=== PATIENT | male | born 1945 | race Caucasian/White ===

== ENCOUNTER → 2017-01-13 | Outpatient (CLI) | payer BC ==
[~2017-01-13] MED LIST: AMB10 PO; AMLO2.5T PO; ASPI1TAB83 PO; ATOR-26 PO; CLOB-77 TOP; CLOP1TAB15 PO; FOLI1TAB7 PO; LOSA1TAB PO; LOSA50TA6 PO; LSX40 PO; NTRGSL/4 UT; OXYC1TAB3 PO; PRD/25 PO; PRLSR20 PO; PSYL0.524; TEST5GEL TD; TPRSR/25 PO; [UNRECOGNIZED DRUG - CODE] TOP
[2017-01-13 11:00] LABS: MEAN CORPUSCULAR HGB CONC 32.9 g/dl (32-36)
[2017-01-13 11:23] LABS: HEMATOCRIT 40.7 % (42-52); MEAN CELL VOLUME 80.3 fL (80-100); MEAN CORPUSCULAR HEMOGLOBIN 26.4 pg (25-34); RED BLOOD COUNT 5.07 M/uL (4.7-6.1); WHITE BLOOD COUNT 7.32 K/uL (4.8-10.8)
[2017-01-13 11:31] LABS: PLATELET COUNT 146 K/uL (130-400); PLT ESTIMATE DECREASED
== END | disposition home or self-care (01) ==
LOC: C.LABBC 08:07
PROVIDERS: ATTEND Internal Medicine Cardiovascular Disease
DX: E61.1 Iron deficiency (principal)

== ENCOUNTER → 2017-01-13 | Outpatient (CLI) | payer BC ==
[2017-01-13 10:59] LABS: BASO % 0.3 %; BASO ABS # 0.02 K/uL (0-0.2); EOS % 3.8 %; HEMATOCRIT 40.9 % (42-52); IG% 0.1 %; LYMPH ABS # 1.41 K/uL (1.2-3.4); MEAN CELL VOLUME 80.2 fL (80-100); MEAN CORPUSCULAR HEMOGLOBIN 26.3 pg (25-34); MEAN CORPUSCULAR HGB CONC 32.8 g/dl (32-36); MEAN PLATELET VOLUME 10.5 fL (7.4-10.4); NEUT % 64.8 %; PLATELET COUNT 146 K/uL (130-400); WHITE BLOOD COUNT 7.06 K/uL (4.8-10.8)
[2017-01-13 11:33] LABS: ANISOCYTOSIS PRESENT; COMPLETE YES
--- NOTE | 2017-01-23 07:18 | CODING QUERY MEDICAL NECESSITY ---
SUPPORTING DIAGNOSIS NEEDED A supporting diagnosis is required for the test/procedure performed on this patient in order for us to be reimbursed by the patient's insurance. Please provide a supporting diagnosis for the following test/procedure listed below next to the test name along with your signature. *If there is no additional diagnosis for this patient that would support the following test/procedure please document that below next to the test/procedure. Test(s)/Procedure(s) that require a supporting diagnosis: DOS 01/13 * PSA DIAGNOSIS: Provider Signature: Date: Thank you Mita Peña Health Information Management Once completed, please kindly fax back to [phone] For questions please call [phone]
== END | disposition home or self-care (01) ==
LOC: C.LABBC 08:10
PROVIDERS: ATTEND Internal Medicine Endocrinology, Diabetes & Metabolism
DX: D35.2 Benign neoplasm of pituitary gland (principal); D35.3 Benign neoplasm of craniopharyngeal duct; E25.0 Congenital adrenogenital disorders associated with enzyme deficiency; E61.1 Iron deficiency

== ENCOUNTER → 2017-07-25 | Outpatient (CLI) | payer BC ==
[~2017-07-25] MED LIST changes: -LOSA1TAB PO; -OXYC1TAB3 PO; -PRD/25 PO; -PSYL0.524; -TEST5GEL TD
[2017-07-25 09:39] LABS: BASO % 0.4 %; BASO ABS # 0.03 K/uL (0-0.2); COMPLETE YES; EOS % 3.4 %; HEMATOCRIT 42.6 % (42-52); IG% 0.4 %; LYMPH % 18.4 %; LYMPH ABS # 1.28 K/uL (1.2-3.4); MEAN CELL VOLUME 90.1 fL (80-100); MEAN CORPUSCULAR HEMOGLOBIN 30.4 pg (25-34); MEAN CORPUSCULAR HGB CONC 33.8 g/dl (32-36); MEAN PLATELET VOLUME 10.8 fL (7.4-10.4); MONO % 10.2 %; NEUT % 67.2 %; PLATELET COUNT 133 K/uL (130-400); RED BLOOD COUNT 4.73 M/uL (4.7-6.1); WHITE BLOOD COUNT 6.96 K/uL (4.8-10.8)
[2017-07-25 10:31] LABS: TESTOSTERONE,TOTAL 351.6 ng/dl; THYROXINE (T4) 6.4 mcg/dl (4.5-10.9)
[2017-07-25 10:54] LABS: ALT/SGPT 39 U/L (12-78); AST/SGOT 26 U/L (15-37); BLOOD UREA NITROGEN 16 mg/dl (7-18); BUN/CREATININE RATIO 14.2 (10-20); CALCIUM 8.8 mg/dl (8.5-10.1); CARBON DIOXIDE 28 mmol/L (21-32); CHLORIDE 108 mmol/L (98-107); CHOLESTEROL 74 mg/dl (0-200); CHOLESTEROL/HDL RATIO 1.9; GLUCOSE 103 mg/dl (70-99); HDL CHOLESTEROL 38 mg/dl; LDL CHOLESTEROL CALCULATED 23 mg/dl; POTASSIUM 4.3 mmol/L (3.5-5.1); SODIUM 139 mmol/L (136-145); TRIGLYCERIDES 67 mg/dl (0-150); VERY LOW DENSITY LIPOPROT CALC 13 mg/dl
[2017-07-25 11:00] LABS: ALB/GLOB RATIO 1.2 (0.9-2); ALKALINE PHOSPHATASE 102 U/L (45-117); FERRITIN 31.5 ng/ml (8.0-388.0); TOTAL IRON BINDING CAPACITY 321 mcg/dl (250-450)
[2017-07-25 14:04] LABS: ESTIMATED AVERAGE GLUCOSE 134 mg/dl; HA1C FLAG Normal (Normal)
== END | disposition home or self-care (01) ==
LOC: C.LAB1850 08:25
PROVIDERS: ATTEND Family Medicine
DX: I10 Essential (primary) hypertension (principal); E78.00 Pure hypercholesterolemia, unspecified; I25.10 Atherosclerotic heart disease of native coronary artery without angina pectoris; E55.9 Vitamin D deficiency, unspecified; R73.03 Prediabetes; D64.9 Anemia, unspecified; D35.2 Benign neoplasm of pituitary gland; D35.3 Benign neoplasm of craniopharyngeal duct; Z12.5 Encounter for screening for malignant neoplasm of prostate

== ENCOUNTER → 2017-08-01 | Day surgery (SDC) | payer BC ==
[2017-07-17 14:42] VITALS: BMI 28.0
[~2017-08-01] VITALS: Ht 172.7 cm; Wt 85.5 kg
[~2017-08-01] MED LIST changes: +LIDOCAINE HCL 2% 2 ML VIAL (20MG/ML) ONE; +MIDAZOLAM HCL 1 MG/ML 2ML VIAL ONE; +ONDANSETRON INJ 2 MG/ML 2 ML VIAL ONE; +PROPOFOL IV EMULSION 10 MG/ML 20 ML VIAL IV ONE; +SODIUM CHLORIDE 0.9% 500ML 500 ML IV ONE
[2017-08-01 11:11] VITALS: Ht 172.7 cm; Wt 85.5 kg
--- NOTE | 2017-08-01 11:56 | Endo History and Physical ---
History & Physical Date of Service: Aug 01, 2017. Chief Complaint: Hx polyps Referring Physician: Dr Jerez History of Present Illness 72 yo CM who presents for EGD and colonoscopy secondary to High's esophagus and history of colon polyps. Past Medical History Angioplasty/Stent, Arthritis, Reflux, High Cholesterol, Heart Disease, Hypertension, [place] Past Surgical History Hx Cardiac Surgery: Yes (HEART CATHS X2, STENTS X0, ANGIOPLASTY X1, AAA REPAIR) Hx Internal Defibrillator: Yes (05/2014) Hx Pacemaker: Yes (05/2014) Hx Abdominal Surgery: No Hx of Implantable Prosthesis: No Hx Post-Op Nausea and Vomiting: No Hx Cancer Surgery: No Hx Thoracic Surgery: No Hx Orthopedic: Yes (LT/RT FELIX) Hx Urinary Tract Surgery: No Family History None Social History Smoking Status: Former Smoker Hx Substance Use: No Hx Alcohol Use: Yes (SOCIAL/OCCASIONAL) Allergies Coded Allergies: Amoxicillin (Verified Allergy, Mild, RASH/ITCHING, 07/17/17) PER PATIENT "HAPPENS ON PENIS" Lactose Intolerance (GI) (Verified Adverse Reaction, Intermediate, GI SYMPTOMS, 07/17/17) Benzalkonium Chloride (Verified Adverse Reaction, Mild, ITCHING/SWELLING/ RASH, 07/17/17) PER ADR EVENT REPORTING, PT USED BENZALKONIUM CL ANTISEPTIC TOWEL AND HAD REACTION Gluten (Verified Adverse Reaction, Unknown, gluten intolerant per EGD, ) Current Medications Reported Home Medications Medications Dose Route/Sig Max Daily Dose Days Date Category Androgel (Testosterone) 40.5 Mg/2.5 Gm Gel 1 Dose TOP DAILY 07/17/17 Reported Cozaar (Losartan Potassium) 50 Mg Tab 50 Mg PO QPM 07/17/17 Reported Temovate (Clobetasol Propionate) 0.05 % Cre 1 Appln TOP UD PRN 10/24/16 Reported Nitrostat (Nitroglycerin) 0.4 Mg Tab 0.4 Mg UT PRN PRN 10/24/16 Reported Metoprolol Succinate ER (Metoprolol Succinate) 25 Mg Tabcr 25 Mg PO QAM 10/24/16 Reported Norvasc (Amlodipine Besylate) 2.5 Mg Tab 2.5 Mg PO QPM 05/23/15 Reported Folvite (Folic Acid) 1 Mg Tab 1 Mg PO QPM 07/14/14 Reported Plavix (Clopidogrel Bisulfate) 75 Mg Tab 75 Mg PO QPM 07/13/14 Reported Furosemide 40 Mg Tab 40 Mg PO Q2D 07/13/14 Reported Lipitor (Atorvastatin Calcium) 80 Mg Tab 80 Mg PO QPM 07/13/14 Reported Zolpidem Tartrate 10 Mg Tab 10 Mg PO HS PRN 06/10/14 Reported Aspirin 81 Mg Tab 81 Mg PO QPM 12/12/13 Reported Prilosec (Omeprazole) 20 Mg Capcr 2 Tabs PO BID 08/27/13 Reported Vital Signs Weight (Kilograms): 85.45 Height (Feet): 5 Height (Inches): 8 Date Time Temp Pulse Resp B/P (MAP) Pulse Ox O2 Delivery O2 Flow Rate FiO2 08/01/17 11:08 36.6 72 18 153/83 (106) 97 Room Air Physical Exam General Appearance: WD/WN, no apparent distress Respiratory/Chest: Auscultation: breath sounds normal Cardiovascular: Heart Auscultation: RRR Abdomen: Bowel Sounds: normal Inspection & Palpation: soft, non-distended, no tenderness, guarding & rebound Assessment and Plan Assessment: 72 yo CM who presents for EGD and colonoscopy secondary to High's esophagus and history of colon polyps. Plan: Proceed with EGD and colonoscopy.
--- NOTE | 2017-08-01 12:47 | GI REPORT ---
Procedure Date: 08/01/2017 11:19 AM Procedure: Colonoscopy Indications: High risk colon cancer surveillance: Personal history of colonic polyps Medicines: Monitored Anesthesia Care Complications: No immediate complications. Estimated Blood Loss: Estimated blood loss: none. Procedure: Pre-Anesthesia Assessment: - Prior to the procedure, a History and Physical was performed, and patient medications and allergies were reviewed. The patient's tolerance of previous anesthesia was also reviewed. The risks and benefits of the procedure and the sedation options and risks were discussed with the patient. All questions were answered, and informed consent was obtained. Prior Anticoagulants: The patient last took aspirin 1 day and Plavix (clopidogrel) 7 days prior to the procedure. ASA Grade Assessment: III - A patient with severe systemic disease. After reviewing the risks and benefits, the patient was deemed in satisfactory condition to undergo the procedure. After I obtained informed consent, the scope was passed under direct vision. Throughout the procedure, the patient's blood pressure, pulse, and oxygen saturations were monitored continuously. The scope was introduced through the anus and advanced to the cecum, identified by appendiceal orifice and ileocecal valve. The colonoscopy was performed without difficulty. The patient tolerated the procedure well. The quality of the bowel preparation was good. The ileocecal valve, appendiceal orifice, and rectum were photographed. Findings: Non-bleeding internal hemorrhoids were found during retroflexion. The hemorrhoids were small. The exam was otherwise without abnormality. Impression: - Non-bleeding internal hemorrhoids. - The examination was otherwise normal. - No specimens collected. Recommendation: - Resume previous diet. - Continue present medications. - No repeat colonoscopy due to age and the absence of advanced adenomas. - Return to primary care physician as previously scheduled. Kirill Storm DO 08/01/2017 12:46:08 PM This report has been signed electronically. Note Initiated On: 08/01/2017 11:19 AM I attest to the content of the Intraoperative Record and orders documented therein, exceptions below
--- NOTE | 2017-08-01 12:49 | GI REPORT ---
Procedure Date: 08/01/2017 11:19 AM Procedure: Upper GI endoscopy Indications: Follow-up of High's esophagus Medicines: Monitored Anesthesia Care Complications: No immediate complications. Estimated Blood Loss: Estimated blood loss: none. Procedure: Pre-Anesthesia Assessment: - Prior to the procedure, a History and Physical was performed, and patient medications and allergies were reviewed. The patient's tolerance of previous anesthesia was also reviewed. The risks and benefits of the procedure and the sedation options and risks were discussed with the patient. All questions were answered, and informed consent was obtained. Prior Anticoagulants: The patient last took aspirin 1 day and Plavix (clopidogrel) 7 days prior to the procedure. ASA Grade Assessment: III - A patient with severe systemic disease. After reviewing the risks and benefits, the patient was deemed in satisfactory condition to undergo the procedure. After obtaining informed consent, the endoscope was passed under direct vision. Throughout the procedure, the patient's blood pressure, pulse, and oxygen saturations were monitored continuously. The On-site loaner was introduced through the mouth, and advanced to the second part of duodenum. The upper GI endoscopy was accomplished without difficulty. The patient tolerated the procedure well. Findings: A moderate Schatzki ring (acquired) was found at the gastroesophageal junction. A TTS dilator was passed through the scope. Dilation with an 18-19-20 mm balloon (to a maximum balloon size of 19 mm) dilator was performed. The dilation site was examined and showed moderate improvement in luminal narrowing. There were esophageal mucosal changes consistent with short-segment High's esophagus present in the lower third of the esophagus. The maximum longitudinal extent of these mucosal changes was 2 cm in length. Mucosa was biopsied with a cold forceps for histology. One specimen bottle was sent to pathology. A medium-sized hiatus hernia was present. The examined duodenum was normal. Impression: - Moderate Schatzki ring. Dilated. - Esophageal mucosal changes consistent with short-segment High's esophagus. Biopsied. - Medium-sized hiatus hernia. - Normal examined duodenum. Recommendation: - Resume previous diet. - Continue present medications. - Await pathology results. - Return to primary care physician as previously scheduled. Kirill Storm DO 08/01/2017 12:48:45 PM This report has been signed electronically. Note Initiated On: 08/01/2017 11:19 AM I attest to the content of the Intraoperative Record and orders documented therein, exceptions below
--- NOTE | 2017-08-01 13:11 | Discharge Instructions ---
Endoscopy Patient Instructions Date / Procedure(s) Performed Aug 01, 2017. Colonoscopy, EGD Allergy Information Coded Allergies: Amoxicillin (Verified Allergy, Mild, RASH/ITCHING, 07/17/17) PER PATIENT "HAPPENS ON PENIS" Lactose Intolerance (GI) (Verified Adverse Reaction, Intermediate, GI SYMPTOMS, 07/17/17) Benzalkonium Chloride (Verified Adverse Reaction, Mild, ITCHING/SWELLING/ RASH, 07/17/17) PER ADR EVENT REPORTING, PT USED BENZALKONIUM CL ANTISEPTIC TOWEL AND HAD REACTION Gluten (Verified Adverse Reaction, Unknown, gluten intolerant per EGD, ) Discharge Date / Findings Aug 01, 2017. EGD: Schatzki's Ring s/p dilation, High's Esophagus s/p biopsies, Hiatal hernia Colonoscopy: Internal hemorrhoids Medication Instructions Stopped Medication(s): Plavix held since 07/26/17 OK to resume all medications today as prescribed Reported Home Medications Medications Dose Route/Sig Max Daily Dose Days Date Category Androgel (Testosterone) 40.5 Mg/2.5 Gm Gel 1 Dose TOP DAILY 07/17/17 Reported Cozaar (Losartan Potassium) 50 Mg Tab 50 Mg PO QPM 07/17/17 Reported Temovate (Clobetasol Propionate) 0.05 % Cre 1 Appln TOP UD PRN 10/24/16 Reported Nitrostat (Nitroglycerin) 0.4 Mg Tab 0.4 Mg UT PRN PRN 10/24/16 Reported Metoprolol Succinate ER (Metoprolol Succinate) 25 Mg Tabcr 25 Mg PO QAM 10/24/16 Reported Norvasc (Amlodipine Besylate) 2.5 Mg Tab 2.5 Mg PO QPM 05/23/15 Reported Folvite (Folic Acid) 1 Mg Tab 1 Mg PO QPM 07/14/14 Reported Plavix (Clopidogrel Bisulfate) 75 Mg Tab 75 Mg PO QPM 07/13/14 Reported Furosemide 40 Mg Tab 40 Mg PO Q2D 07/13/14 Reported Lipitor (Atorvastatin Calcium) 80 Mg Tab 80 Mg PO QPM 07/13/14 Reported Zolpidem Tartrate 10 Mg Tab 10 Mg PO HS PRN 06/10/14 Reported Aspirin 81 Mg Tab 81 Mg PO QPM 12/12/13 Reported Prilosec (Omeprazole) 20 Mg Capcr 2 Tabs PO BID 08/27/13 Reported Provider Instructions Activity Restrictions - No exercising or heavy lifting for 24 hours. - Do not drink alcohol the day of the procedure. - Do not drive a car or operate machinery until the day after the procedure. - Do not make any important decisions or sign important papers in 24 hours after the procedure. Following Day: - Return to full activity which may include returning to work/school. Diet Start your diet with liquids and light foods (jello, soup, juice, toast). Then eat your usual diet if not nauseated. Treatment For Common After Affects For mild abdominal pain, bloating, or excessive gas: - Rest - Eat lightly - Lie on right side Follow-Up Information Follow-up with Dr Jerez as scheduled Anesthesia Information What You Should Know You have had a procedure that required some medicine to reduce anxiety and discomfort. This treatment is called moderate sedation. After receiving the treatment, you may be sleepy, but you will be able to breathe on your own. The effects of the treatment may last for several hours. Follow these instructions along with Activity/Diet recommendations noted above: * Do NOT do anything where dizziness or clumsiness would be dangerous. * Rest quietly at home today, then you can be up and about tomorrow. * Have a responsible person stay with you the rest of today. * You may have had an I.V. today. If so, you may take the dressing off later today. Recommendations Call your doctor if: * Trouble breathing * Continuous vomiting for more than 24 hours * Temperature above 101 degrees * Severe abdominal pain or bloating * Pain not relieved by pain medicine ordered * There is increased drainage or redness from any incision * A large amount of rectal bleeding greater than 2-3 tablespoons. (If you had a polyp/s removed or have hemorrhoids, a small amount of blood - from the rectum is to be expected.) * You have any unanswered questions or concerns. IN THE EVENT OF A SERIOUS EMERGENCY, GO TO THE NEAREST EMERGENCY ROOM Your discharge instructions were prepared by provider Kirill Storm. Patient Instructions Signature Page Tyler Alcala Patient (or Guardian) Signature/Date: I have read and understand the instructions given to me by my caregivers. Caregiver/RN/Doctor Signature/Date: The above-named patient and/or guardian has received patient instructions on this date. + Original Patient Signature Page (only) stays with chart. Please make copy for patient.
[2017-08-01 13:17] VITALS: BP 141/82; PULSE 60; O2SAT 95
--- NOTE | 2017-08-01 13:18 | Anesthesiology Progress Note ---
Anesthesia Post Op Note Date & Time Aug 01, 2017 at 13:18 Vital Signs Pain Intensity: 0 Vital Signs Past 12 Hours Date Time Temp Pulse Resp B/P (MAP) Pulse Ox O2 Delivery O2 Flow Rate FiO2 08/01/17 13:02 59 16 133/82 (99) 92 Mask 08/01/17 12:47 60 16 130/84 (99) 96 Mask 08/01/17 11:08 36.6 72 18 153/83 (106) 97 Room Air Notes Mental Status: alert / awake / arousable, participated in evaluation Pt Amnestic to Procedure: Yes Nausea / Vomiting: adequately controlled Pain: adequately controlled Airway Patency, RR, SpO2: stable & adequate BP & HR: stable & adequate Hydration State: stable & adequate Anesthetic Complications: no major complications apparent
== END | disposition home or self-care (01) ==
LOC: C.GI 10:52
PROVIDERS: ATTEND Internal Medicine
DX: Z12.11 Encounter for screening for malignant neoplasm of colon (principal); K64.8 Other hemorrhoids; Z86.010 Personal history of colon polyps; K22.2 Esophageal obstruction; K22.70 Barrett's esophagus without dysplasia; K44.9 Diaphragmatic hernia without obstruction or gangrene; I10 Essential (primary) hypertension; I25.10 Atherosclerotic heart disease of native coronary artery without angina pectoris; I25.2 Old myocardial infarction; Z95.5 Presence of coronary angioplasty implant and graft; E78.00 Pure hypercholesterolemia, unspecified; K21.9 Gastro-esophageal reflux disease without esophagitis; M19.90 Unspecified osteoarthritis, unspecified site; Z87.891 Personal history of nicotine dependence; Z79.82 Long term (current) use of aspirin; Z79.899 Other long term (current) drug therapy
CPT/HCPCS: 43239; 43249; G0105

== ENCOUNTER → 2017-08-07 | Outpatient (CLI) | payer BC ==
[~2017-08-07] MED LIST changes: -LIDOCAINE HCL 2% 2 ML VIAL (20MG/ML) ONE; -MIDAZOLAM HCL 1 MG/ML 2ML VIAL ONE; -ONDANSETRON INJ 2 MG/ML 2 ML VIAL ONE; -PROPOFOL IV EMULSION 10 MG/ML 20 ML VIAL IV ONE; -SODIUM CHLORIDE 0.9% 500ML 500 ML IV ONE
--- NOTE | 2017-08-07 13:15 | DIAGNOSTIC IMAGING REPORT ---
RIGHT ELBOW MIN 3 VIEWS ROUTINE CLINICAL HISTORY: 72 years-old Male presenting with right elbow pain, fall on Sunday. TECHNIQUE: Frontal, oblique, and lateral views of the right elbow were obtained. COMPARISON: None. FINDINGS: No visible joint effusion. Small osseous fragment noted adjacent to the lateral epicondyle, possibly degenerative in etiology. No convincing evidence of an acute fracture or subluxation. IMPRESSION: No convincing evidence of osseous injury of the right elbow. Suspected degenerative related calcification at the lateral epicondyle. Electronically signed by: Berlin Tovar M.D. 08/07/2017 1:13 PM Dictated Date/Time: 08/07/2017 1:11 PM
== END | disposition home or self-care (01) ==
LOC: C.RADBC 12:58
PROVIDERS: ATTEND Family Medicine
DX: M25.521 Pain in right elbow (principal)

== ENCOUNTER → 2017-11-29 | Outpatient (CLI) | payer BC ==
[~2017-11-29] MED LIST changes: +CEFD300C2 PO; +CHOL20005 PO; +DOXY100T17 PO; -FOLI1TAB7 PO; +FOLI1TAB8 PO; +ISOS30TA35 PO
== END | disposition home or self-care (01) ==
LOC: C.LAB1850 10:16
PROVIDERS: ATTEND Internal Medicine Endocrinology, Diabetes & Metabolism
DX: E23.0 Hypopituitarism (principal)

== ENCOUNTER → 2018-04-09 | Outpatient (CLI) | payer BC ==
[~2018-04-09] MED LIST changes: -CEFD300C2 PO; -CHOL20005 PO; -DOXY100T17 PO; -ISOS30TA35 PO
[2018-04-09 11:08] LABS: HEMATOCRIT 41.5 % (42-52); MEAN CORPUSCULAR HEMOGLOBIN 30.4 pg (25-34); MEAN CORPUSCULAR HGB CONC 33.7 g/dl (32-36); MEAN PLATELET VOLUME 11.7 fL (7.4-10.4); PLATELET COUNT 118 K/uL (130-400); RED CELL DISTRIBUTION WIDTH CV 13.8 % (11.5-14.5); RED CELL DISTRIBUTION WIDTH SD 44.8 fL (36.4-46.3); WHITE BLOOD COUNT 6.83 K/uL (4.8-10.8)
[2018-04-09 11:37] LABS: BLOOD UREA NITROGEN 26 mg/dl (7-18); CREATININE 1.16 mg/dl (0.60-1.40); GLUCOSE 109 mg/dl (70-99); POTASSIUM 3.9 mmol/L (3.5-5.1); SODIUM 140 mmol/L (136-145)
[2018-04-09 11:38] LABS: ALBUMIN 3.8 gm/dl (3.4-5.0); CARBON DIOXIDE 27 mmol/L (21-32); TOTAL PROTEIN 7.5 gm/dl (6.4-8.2)
[2018-04-09 11:39] LABS: ALKALINE PHOSPHATASE 107 U/L (45-117); ALT/SGPT 38 U/L (12-78); AST/SGOT 27 U/L (15-37); CHOLESTEROL 129 mg/dl (0-200)
[2018-04-09 11:41] LABS: LDL CHOLESTEROL CALCULATED 28 mg/dl
[2018-04-09 12:04] LABS: HEMOGLOBIN A1C 6.4 % (4.5-5.6)
== END | disposition home or self-care (01) ==
LOC: C.LABBC 07:26
PROVIDERS: ATTEND Family Medicine
DX: I10 Essential (primary) hypertension (principal); E78.00 Pure hypercholesterolemia, unspecified; E34.9 Endocrine disorder, unspecified; I25.10 Atherosclerotic heart disease of native coronary artery without angina pectoris; E55.9 Vitamin D deficiency, unspecified; R73.03 Prediabetes

== ENCOUNTER 2019-09-22 20:33 | Inpatient (IN) ==
[2019-09-22] MEDS ORDERED: SODIUM CHLORIDE 0.9% 1000ML 1,000 ML IV SCH (21:15)
[2019-09-22 21:35] LABS: Basophils # (auto) 0.02 K/uL (0-0.2); Basophils % (auto) 0.2 %; Eosinophils # (auto) 0.04 K/uL (0-0.5); Eosinophils % (auto) 0.4 %; Hematocrit (blood only) 41.2 % (42-52); Hemoglobin 13.9 g/dL (14.0-18.0); Immature Granulocytes # (auto) 0.01 K/uL (0.00-0.02); Immature Granulocytes % (auto) 0.1 %; Lymphocytes # (auto) 0.96 K/uL (1.2-3.4); Lymphocytes % (auto) 9.2 %; Mean Corpuscular Hemoglobin 29.4 pg (25-34); Mean Corpuscular Hgb Conc 33.7 g/dL (32-36); Mean Corpuscular Volume 87.3 fL (80-100); Monocytes # (auto) 1.01 K/uL (0.11-0.59); Monocytes % (auto) 9.7 %; Neutrophils # (auto) 8.34 K/uL (1.4-6.5); Neutrophils % (auto) 80.4 %; Platelet Count 118 K/uL (130-400); RDW Coefficient of Variation 15.7 % (11.5-14.5); RDW Standard Deviation 50.5 fL (36.4-46.3); Red Blood Count 4.72 M/uL (4.7-6.1); White Blood Count 10.38 K/uL (4.8-10.8)
[2019-09-22 21:49] LABS: INR 1.2 (0.9-1.1); Partial Thromboplastin Ratio 0.9; Partial Thromboplastin Time 25.5 Seconds (21.0-31.0); Prothrombin Time 12.4 Seconds (9.0-12.0)
[2019-09-22 21:50] LABS: Est GFR (African American) 73.5; Est GFR (Non-African American) 63.4; Potassium 3.7 mmol/L (3.5-5.1)
[2019-09-22 21:51] LABS: Albumin Level 4.1 gm/dl (3.4-5.0); Calcium 8.7 mg/dl (8.5-10.1); Creatinine Clr Calc Pharmacy 55.8 ml/min
[2019-09-22 21:53] LABS: Albumin Globulin Ratio 1.2 (0.9-2); Bilirubin,Total 1.6 mg/dl (0.2-1); Globulin 3.3 gm/dl (2.5-4.0); Total Protein 7.4 gm/dl (6.4-8.2)
--- NOTE | 2019-09-22 22:01 | CT Scan Report ---
CT SCAN OF THE ABDOMEN AND PELVIS WITHOUT CONTRAST CLINICAL HISTORY: Gastrointestinal hemorrhage COMPARISON STUDY: April 25, 2007 TECHNIQUE: CT scan of the abdomen and pelvis was performed from the lung bases to the proximal femurs . Images are reviewed in the axial, sagittal, and coronal planes. IV contrast was not administered fo r this examination. A dose lowering technique was utilized adhering to the principles of ALARA. CT DOSE: 538.36 mGy.cm FINDINGS: Lower chest: There is moderate to severe pulmonary emphysema. Liver: There is borderline hepatic steatosis. No focal masses are visualized in this noncontrast stud y. Gallbladder: Unremarkable. Spleen: Normal in size and attenuation. Pancreas: Unremarkable. Adrenal glands: Unremarkable. Kidneys: There are multiple bilateral renal cysts. There is no hydronephrosis. Bowel: There are no transition zones indicate bowel obstruction. There is no evidence of acute append icitis. There is bowel wall thickening involving the descending colon consistent with a colitis. Peritoneum: There is no intraperitoneal free air or abdominal ascites. There is a small fat-containin g right inguinal hernia Vasculature: The abdominal aorta is normal in course and caliber. There is evidence for an aorto bife moral bypass graft. Adenopathy: None. Pelvic viscera: The prostate is enlarged. Evaluation of pelvis is limited due to artifact from bilate ral hip arthroplasties Skeletal structures: No destructive osseous lesions are seen. IMPRESSION: 1. No evidence of bowel obstruction. No evidence of free air 2. Colonic wall thickening involving the entirety of the descending colon indicative of a colitis (in fectious/inflammatory versus ischemic). Electronically signed by: Xander Lau M.D. 09/22/2019 9:59 PM
[2019-09-22] MEDS ORDERED: metroNIDAZOLE 500 MG/100 ML BAG IV STA (23:32)
[2019-09-22] MEDS ORDERED: CIPROFLOXACIN 400 MG/200 ML BAG IV STA (23:32)
--- NOTE | 2019-09-23 00:49 | Emergency Department Note ---
Entered by Joyce Almanzar acting as a scribe for ED Provider Note CHIEF COMPLAINT: Hematochezia HISTORY OF PRESENT ILLNESS: The patient is a 74 year old male with past medical history of arthritis, ventricular tachycardia, migraine, pituitary adenoma,GERD, diabetes who presents to the Emergency Room with complaints of constant hematochezia that started last night. The patient reports he had a large meal last night with a friend. He notes he got up in the middle of the night to go to the bathroom and noticed the toilet was full of fairly red blood. The patient additionally states he got up this morning and decided not to eat to not make the symptoms worse. He reports he has lower abdominal pain along with bilateral flank rhoades. The patient states he is on blood thinner. Pt denies LOC, headache, fevers, chills, diaphoresis, visual changes, neck pain, chest pain, breathing difficulties, nausea, vomiting, back pain, melena, urinary symptoms, numbness, weakness, lymphadenopathy, rash, or other complaints. REVIEW OF SYSTEMS: See HPI for pertinent positives and negatives. A total of ten systems were reviewed and were otherwise negative. PMHx/PSHx: Arthritis Ventricular tachycardia Migraine Pituitary adenoma GERD Diabetes SOCIAL HISTORY: Patient lives at home. PHYSICAL EXAM: GENERAL: Awake, alert, well-appearing, in no distress HENT: Normocephalic, atraumatic. Oropharynx unremarkable. EYES: PERRL. Normal conjunctiva. Sclera non-icteric. NECK: Inspection normal. Non-tender. Supple. No nuchal rigidity. FROM. No masses. RESPIRATORY: Clear to auscultation. No wheezes. No rales. Normal respiratory effort. CARDIAC: Normal rate. Normal rhythm. No murmurs. No rubs. Extremities warm and well perfused. Pulses equal. No JVD. GI: Soft, non-distended. Mild lateral flank tenderness to palpation. No rebound or guarding. No masses. RECTAL: Hemorrhoids present. No active bleeding. No stool in the vault. Hemoccult negative MUSCULOSKELETAL: Atraumatic. Chest examination reveals no tenderness. The back is symmetrical on inspection without obvious abnormality. There is no CVA tenderness to palpation. No joint edema. LOWER EXTREMITIES: Calves are equal size bilaterally and non-tender. No edema. No discoloration. NEURO: Normal sensorium. No sensory or motor deficits noted. SKIN: No rash or jaundice noted. EMERGENCY DEPARTMENT COURSE: 2103: Past medical records reviewed. The patient was evaluated in room C5, and a complete history and physical examination were performed. 7: I updated the patient on results and asked him about his GI doctor. 2223: I put a call out for GI. 2317: I checked on the patient and updated him that we are having difficulties reaching the GI doctor. 2323: I discussed the patients case with ELENA Coello. He will evaluate the patient for further management. 2325: Upon reevaluation, the patient is resting comfortably. I discussed laboratory and radiographic results with him. The patient verbalized agreement of the treatment plan. The patient will be evaluated for further management and care. 0015: I discussed the patient's case with Dr. Kenney, [facility] Hospitalist. He will evaluate the patient for further management. MEDICAL DECISION MAKING: Prior records/ancillary studies reviewed. Triage Nursing notes reviewed and agree them. The patient's history was concerning for abdominal pain. Differential diagnosis: Etiologies such as obstruction, mesenteric ischemia, aortic pathology, infections, inflammatory bowel disease, appendicitis, diverticulitis, PUD, biliary pathology, UTI, pancreatitis, renal colic, as well as others were entertained. Physical examination findings: As above. ER treatment provided: Patient was hydrated He declined analgesia On reassessment the patient felt better. IV Cipro and Flagyl after consultation with GI. Diagnostics interpreted by me: ECG: No evidence of dysrhythmia The labs revealed an unremarkable CBC and chemistry panel. Patient lactate is minimally elevated over normal range. Imaging studies: CAT scan of the pelvis reveals left sided colitis Consultation: A consultation was placed with the gastroenterology and internal medicine. The case was discussed and diagnostics were reviewed. The patient was evaluated in the ER for further treatment. IMPRESSION: Colitis Lower GI bleed PLAN: Admit The scribe's documentation has been prepared under my direction and personally reviewed by me in its entirety. I confirm that the note above accurately reflects all work, treatment, procedures, and medical decision making performed by me. Impression & Plan Colitis, Lower gastrointestinal bleed Past Med/Surg History Medical History Diabetes Hypertension Hyperlipidemia Myocardial Infarction most recent 2013, adjust med and icd inserted ICD (implantable cardioverter-defibrillator) in place medtronic [address] Newberry GERD (gastroesophageal reflux disease) Arthritis (Chronic) Ventricular tachycardia (Acute) Migraine (Acute) Encounter for pre-operative examination Pituitary adenoma removal of adenoma from pituitary 2016 Surgical History History of cardiac cath 1985 and 1994 no stents History of colonoscopy History of abdominal aortic aneurysm (AAA) repair 2006 Hx of vubex-utffh-jcyybew bypass right and left leg History of total hip arthroplasty right and left Family History Other Cancer Social History Preferred Language: [place] Communication Ability: Effective [employer] Assistant Required: No Beliefs That Will Affect Care: None Current Living Situation: Alone Feels Safe at Home: Yes Smoking Status: Never smoker Age Started Using Tobacco: 19 ; Age Quit Using Tobacco: 61 ; packs per day: 1.5 ; Number of Years Since Quit: 13 ; Second Hand Exposure: No ; Hx Alcohol Use: Yes Alcohol type: beer Hx Substance Use: No Results & Data Vital Signs Vital Signs - 24 hr 09/22/19 20:42 09/22/19 21:10 09/22/19 21:40 Temperature 36.4 C L Temperature Source Oral Sepsis Recent Fever Within 48 Hours No Sepsis New/Unexplained Change in Mental Status No Sepsis Action Taken by Nursing No Action Required Pulse Rate 89 Pulse Rate [Right Finger] 74 Respiratory Rate 18 18 Respiratory Effort / Characteristics Non-Labored Spontaneous Respiratory Depth Normal Blood Pressure 148/81 H Blood Pressure [Left Arm] 153/89 H Blood Pressure Mean 103 Blood Pressure Mean [Left Arm] 110 Blood Pressure Position [Left Arm] Sitting Pulse Oximetry 97 97 95 Oxygen Delivery Method Room Air Room Air Room Air 09/22/19 23:00 Temperature Temperature Source Sepsis Recent Fever Within 48 Hours Sepsis New/Unexplained Change in Mental Status Sepsis Action Taken by Nursing Pulse Rate Pulse Rate [Right Finger] 80 Respiratory Rate 16 Respiratory Effort / Characteristics Respiratory Depth Blood Pressure Blood Pressure [Left Arm] 137/84 Blood Pressure Mean Blood Pressure Mean [Left Arm] 101 Blood Pressure Position [Left Arm] Pulse Oximetry 94 Oxygen Delivery Method Room Air Home Medications Current Medication List: was personally reviewed by me Laboratory Data Attestation: I reviewed the patient's lab results. Result diagrams: 09/22/19 21:22 09/22/19 21:22 Lab Results 09/22/19 09/22/19 09/22/19 Range/Units 21:22 21:22 21:22 WBC 10.38 (4.8-10.8) K/uL RBC 4.72 (4.7-6.1) M/uL Hgb 13.9 L (14.0-18.0) g/dL Hct 41.2 L (42-52) % MCV 87.3 (80-100) fL MCH 29.4 (25-34) pg MCHC 33.7 (32-36) g/dL RDW Std Deviation 50.5 H (36.4-46.3) fL RDW Coeff of Dena 15.7 H (11.5-14.5) % Plt Count 118 L (130-400) K/uL MPV 11.0 H (7.4-10.4) fL Immature Gran % (Auto) 0.1 % Neut % (Auto) 80.4 % Lymph % (Auto) 9.2 % [place] % (Auto) 9.7 % Eos % (Auto) 0.4 % Baso % (Auto) 0.2 % Immature Gran # (Auto) 0.01 (0.00-0.02) K/uL Neut # (Auto) 8.34 H (1.4-6.5) K/uL Lymph # (Auto) 0.96 L (1.2-3.4) K/uL [place] # (Auto) 1.01 H (0.11-0.59) K/uL Eos # (Auto) 0.04 (0-0.5) K/uL Baso # (Auto) 0.02 (0-0.2) K/uL PT 12.4 H (9.0-12.0) Seconds INR 1.2 H (0.9-1.1) APTT 25.5 (21.0-31.0) Seconds PTT Ratio 0.9 Sodium 134 L (136-145) mmol/L Potassium 3.7 (3.5-5.1) mmol/L Chloride 101 (98-107) mmol/L Carbon Dioxide 23 (21-32) mmol/L Anion Gap 10.0 (3-11) BUN 23 H (7-18) mg/dl Creatinine 1.14 (0.6-1.4) mg/dl Est Cr Clr Drug Dosing 55.8 ml/min Est GFR ( Amer) 73.5 Est GFR (Non-Af Amer) 63.4 BUN/Creatinine Ratio 20.0 (10-20) Glucose 117 H (70-99) mg/dl POC Lactic Acid Gideon (0.90-1.70) mmol/L Calcium 8.7 (8.5-10.1) mg/dl Total Bilirubin 1.6 H (0.2-1) mg/dl AST 28 (15-37) U/L ALT 29 (12-78) U/L Alkaline Phosphatase 83 (45-117) U/L Total Protein 7.4 (6.4-8.2) gm/dl Albumin 4.1 (3.4-5.0) gm/dl Globulin 3.3 (2.5-4.0) gm/dl Albumin/Globulin Ratio 1.2 (0.9-2) Blood Type Antibody Screen 09/22/19 09/22/19 Range/Units 21:22 23:19 WBC (4.8-10.8) K/uL RBC (4.7-6.1) M/uL Hgb (14.0-18.0) g/dL Hct (42-52) % MCV (80-100) fL MCH (25-34) pg MCHC (32-36) g/dL RDW Std Deviation (36.4-46.3) fL RDW Coeff of Dena (11.5-14.5) % Plt Count (130-400) K/uL MPV (7.4-10.4) fL Immature Gran % (Auto) % Neut % (Auto) % Lymph % (Auto) % [place] % (Auto) % Eos % (Auto) % Baso % (Auto) % Immature Gran # (Auto) (0.00-0.02) K/uL Neut # (Auto) (1.4-6.5) K/uL Lymph # (Auto) (1.2-3.4) K/uL [place] # (Auto) (0.11-0.59) K/uL Eos # (Auto) (0-0.5) K/uL Baso # (Auto) (0-0.2) K/uL PT (9.0-12.0) Seconds INR (0.9-1.1) APTT (21.0-31.0) Seconds PTT Ratio Sodium (136-145) mmol/L Potassium (3.5-5.1) mmol/L Chloride (98-107) mmol/L Carbon Dioxide (21-32) mmol/L Anion Gap (3-11) BUN (7-18) mg/dl Creatinine (0.6-1.4) mg/dl Est Cr Clr Drug Dosing ml/min Est GFR ( Amer) Est GFR (Non-Af Amer) BUN/Creatinine Ratio (10-20) Glucose (70-99) mg/dl POC Lactic Acid Gideon 1.49 (0.90-1.70) mmol/L Calcium (8.5-10.1) mg/dl Total Bilirubin (0.2-1) mg/dl AST (15-37) U/L ALT (12-78) U/L Alkaline Phosphatase (45-117) U/L Total Protein (6.4-8.2) gm/dl Albumin (3.4-5.0) gm/dl Globulin (2.5-4.0) gm/dl Albumin/Globulin Ratio (0.9-2) Blood Type O Negative Antibody Screen POSITIVE A Administered Medications Sodium Chloride (Nss 1000ml) 1,000 mls @ 100 mls/hr IV .Q10H ALEJANDRA Stop: 09/23/19 07:14 Last Admin: 09/22/19 21:59 Dose: 100 mls/hr Documented by: [id number] Discontinued Medications Ciprofloxacin (Cipro) 400 mg in 200 mls @ 200 mls/hr IV NOW STA Stop: 09/23/19 00:31 Last Admin: 09/23/19 00:44 Dose: Not Given Documented by: [id number] Metronidazole (Flagyl) 500 mg in 100 mls @ 100 mls/hr IV NOW STA Stop: 09/23/19 00:31 Last Admin: 09/23/19 00:27 Dose: 100 mls/hr Documented by: [id number] Imaging Data Radiologist's Impression: Radiology results as stated below per my review and the radiologist's interpretation: CT SCAN OF THE ABDOMEN AND PELVIS WITHOUT CONTRAST CLINICAL HISTORY: Gastrointestinal hemorrhage COMPARISON STUDY: April 25, 2007 TECHNIQUE: CT scan of the abdomen and pelvis was performed from the lung bases to the proximal femurs. Images are reviewed in the axial, sagittal, and coronal planes. IV contrast was not administered for this examination. A dose lowering technique was utilized adhering to the principles of ALARA. CT DOSE: 538.36 mGy.cm FINDINGS: Lower chest: There is moderate to severe pulmonary emphysema. Liver: There is borderline hepatic steatosis. No focal masses are visualized in this noncontrast study. Gallbladder: Unremarkable. Spleen: Normal in size and attenuation. Pancreas: Unremarkable. Adrenal glands: Unremarkable. Kidneys: There are multiple bilateral renal cysts. There is no hydronephrosis. Bowel: There are no transition zones indicate bowel obstruction. There is no evidence of acute appendicitis. There is bowel wall thickening involving the descending colon consistent with a colitis. Peritoneum: There is no intraperitoneal free air or abdominal ascites. There is a small fat-containing right inguinal hernia Vasculature: The abdominal aorta is normal in course and caliber. There is evidence for an aorto bifemoral bypass graft. Adenopathy: None. Pelvic viscera: The prostate is enlarged. Evaluation of pelvis is limited due to artifact from bilateral hip arthroplasties Skeletal structures: No destructive osseous lesions are seen. IMPRESSION: 1. No evidence of bowel obstruction. No evidence of free air 2. Colonic wall thickening involving the entirety of the descending colon indicative of a colitis (infectious/inflammatory versus ischemic). Electronically signed by: Xander Lau M.D. 09/22/2019 9:59 PM ECG Data Attestation: I personally reviewed and interpreted this ECG as follows: Indication: abdominal pain Rate (beats per minute): 86 Rhythm: sinus rhythm Findings: + other (Normal QRS, normal QT), + PVC and + Q waves (Inferior and anterior); no ST depression and no ST elevation Blood Pressure Blood Pressure Findings: Elevated blood pressure Discharge Plan Visit Data Chief Complaint: GI Assessment Stated Complaint: RECTAL BLEEDING,ABD PAIN ED Provider: Josemanuel Burgess Discharge Problem: Colitis, Lower gastrointestinal bleed Forms Stand Alone Forms: My [facility] [place] Prescriptions Prescriptions: No Action testosterone [AndroGel] 20.25 mg/1.25 gram (1.62 %) gel in metered-dose pump 2 pump transdermal DAILY Qty: 3 RF: 0 nitroglycerin [Nitrostat] 0.4 mg tablet, sublingual 0.4 mg SL Q5M PRN (Reason: Chest Pain) RF: 0 Vitron-C 65 mg iron- 125 mg tablet,delayed release (DR/EC) 1 tab PO 3XWK RF: 0 albuterol sulfate 90 mcg/actuation aerosol powdr breath activated 90 mcg INH Q6H PRN (Reason: shortness of breath or wheezing) Qty: 1 RF: 2 losartan 25 mg tablet 25 mg PO DAILY RF: 0 furosemide 40 mg Tablet 40 mg PO Q2D RF: 0 atorvastatin 80 mg Tablet 80 mg PO PM RF: 0 amlodipine 2.5 mg Tablet 2.5 mg PO DAILY RF: 0 clopidogrel [Plavix] 75 mg Tablet 75 mg PO DAILY RF: 0 omeprazole 20 mg Capsule,Delayed Release(Dr/Ec) 40 mg PO BID RF: 0 aspirin 81 mg Tablet,Chewable 81 mg PO DAILY RF: 0 folic acid 1 mg Tablet 1 mg PO QAM RF: 0 metoprolol succinate 25 mg Tablet Extended Release 24 Hr 25 mg PO QAM RF: 0 zolpidem 5 mg tablet 5 - 10 mg PO HS PRN (Reason: Sleep) RF: 0 cholecalciferol (vitamin D3) 2,000 unit Tablet 2,000 unit PO DAILY RF: 0 isosorbide mononitrate 60 mg tablet extended release 24 hr 60 mg PO DAILY RF: 0 Trelegy Ellipta 100-62.5-25 mcg blister with device 1 inh inhalation DAILY RF: 0 Referrals Referrals: Pro,Quirino Carranza MD [Primary Care Provider] - The scribe's documentation has been prepared under my direction and personally r juanisiewed by me in its entirety. I confirm that the note above accurately reflects all work, treatment, procedures, and medical decision making performed by me.
--- NOTE | 2019-09-23 01:20 | History & Physical Report ---
Date of Service September 23, 2019 Assessment & Plan (1) Colitis: Descending colon colitis/lower GI bleed- Differential includes food poisoning/diverticulitis/ischemia/other- Send stool for culture, C. difficile and E. coli. Hold Cipro begun by the ED until studies negative for E. coli. Continue Flagyl 5 mg IV every 8 hours. NPO except essential medications. Famotidine 20 mg IV every 12 hours Zofran 4 mg IV every 6 hours as needed Morphine sulfate 2 mg IV every 3 hours as needed severe pain Acetaminophen 600 mg p.o. every 6 hours PRN mild pain or temperature. We will continue aspirin 81 mg daily, but hold Plavix 700 mg daily. We will order mesenteric Dopplers to assess for ischemia due to patient's significant vascular disease history. Consult his general assistant Dr. Storm Present on Admission?: Yes (2) Lower gastrointestinal bleed: See above Present on Admission?: Yes (3) Hypertension: CAD/hypertension/history of [place]/history of sudden cardiac /history of V. tach/AICD pacer- Continue amlodipine 2.5 mg daily. Hold furosemide. Continue isosorbide mononitrate 60 mg daily and metoprolol succinate 25 mg every morning. Hold losartan Present on Admission?: Yes (4) Hyperlipidemia: Continue atorvastatin 80 mg daily Present on Admission?: Yes (5) Myocardial Infarction: Noted Present on Admission?: Yes (6) ICD (implantable cardioverter-defibrillator) in place: Normal telemetry Present on Admission?: Yes (7) History of abdominal aortic aneurysm (AAA) repair: Noted Present on Admission?: Yes (8) Hx of rxeif-ghlbw-gkhpmgx bypass: Noted Present on Admission?: Yes (9) Ventricular tachycardia: Noted Present on Admission?: Yes (10) History of sudden cardiac successfully resuscitated: Noted Present on Admission?: Yes (11) Pituitary adenoma: Continue testosterone Present on Admission?: Yes History of Present Illness Chief Complaint: The patient presents to the emergency department with complaint of the development of a large bloody bowel movement about 24 hours ago, and has had 2-3 loose stools with combinations of mucus and blood since that time. Primary Care Provider: Quirino Hensley MD The patient is a 74-year-old male with a past medical history including myocardial infarction, AICD placement, GERD, hyperlipidemia, hypertension, AAA repair, aortic iliac femoral bypass, sudden cardiac and pituitary adenoma, who presents to the emergency department with acute onset of a large bloody bowel movement after a meal containing shrimp and other foods. He has had intermittent abdominal pain along descending colon area since that time, and has had a few BMs with mucus and mixtures of bright red blood. He has had had colonoscopies in the past noted to have diverticuli. He is not aware of anyone else who ate with him being sick. Allergies Allergy/AdvReac Type Severity Reaction Status Date / Time amoxicillin Allergy Mild RASH/ITCHIN Verified 09/19/19 11:00 G lactose AdvReac Intermediate GI SYMPTOMS Verified 09/19/19 11:00 benzalkonium chloride AdvReac Mild ITCHING/SWE Verified 09/19/19 11:00 LLING/RASH gluten AdvReac Unknown gluten Verified 09/19/19 11:00 intolerant per EGD Home Medications Home Medications Medication Instructions Recorded Confirmed Type amlodipine 2.5 mg PO DAILY 11/13/18 09/22/19 History aspirin 81 mg PO DAILY 11/13/18 09/22/19 History atorvastatin 80 mg PO PM 11/13/18 09/22/19 History clopidogrel [Plavix] 75 mg PO DAILY 11/13/18 09/22/19 History folic acid 1 mg PO QAM 11/13/18 09/22/19 History furosemide 40 mg PO Q2D 11/13/18 09/22/19 History metoprolol succinate 25 mg PO QAM 11/13/18 09/22/19 History omeprazole 40 mg PO BID 11/13/18 09/22/19 History losartan 25 mg tablet 25 mg PO DAILY 08/12/19 09/22/19 History albuterol sulfate 90 mcg/actuation 90 mcg INH Q6H PRN #1 ea 08/29/19 09/22/19 Rx breath activated powder inhaler iron,carbonyl 65 mg-vitamin C 125 1 tab PO 3XWK 08/29/19 09/22/19 History mg tablet,delayed release nitroglycerin 0.4 mg sublingual 0.4 mg SL Q5M PRN 08/29/19 09/22/19 History tablet testosterone 20.25 mg/1.25 gram 2 pump TRANSDERMAL DAILY #3 btl 09/11/19 09/22/19 Rx (1.62 %) transdermal gel pump cholecalciferol (vitamin D3) 2,000 unit PO DAILY 09/22/19 09/22/19 History tfqvmyhmlfx-iygufesva-kzydfaem 1 inh INHALATION DAILY 09/22/19 09/22/19 History [Trelegy Ellipta] isosorbide mononitrate 60 mg PO DAILY 09/22/19 09/22/19 History zolpidem 5 - 10 mg PO HS PRN 09/22/19 09/22/19 History Past Med/Surg History Medical History Diabetes Hypertension Hyperlipidemia Myocardial Infarction most recent 2013, adjust med and icd inserted ICD (implantable cardioverter-defibrillator) in place medtronic [address] Rohith SAUCEDA (gastroesophageal reflux disease) Arthritis (Chronic) Ventricular tachycardia (Acute) Migraine (Acute) Encounter for pre-operative examination Pituitary adenoma removal of adenoma from pituitary 2016 Surgical History History of cardiac cath 1985 and 1994 no stents History of colonoscopy History of abdominal aortic aneurysm (AAA) repair 2006 Hx of xtlpu-uggdk-yypjyhe bypass right and left leg History of total hip arthroplasty right and left Family History Other Cancer Social History Preferred Language: Mongolian Communication Ability: Effective Predictive Maintenance Specialist Required: No Beliefs That Will Affect Care: None Current Living Situation: Alone Other Information That Helps Us Care for You: No Feels Safe at Home: Yes Safety Concerns: Feels Safe At This Time Smoking Status: Former smoker Age Started Using Tobacco: 19 ; Age Quit Using Tobacco: 61 ; packs per day: 1.5 ; Number of Years Since Quit: 13 ; Second Hand Exposure: No ; Hx Alcohol Use: Yes Alcohol type: hard liquor Hx Substance Use: No Review of Systems Review of Systems: The patient denies chest pain, palpitations, shortness of breath, dyspnea on exertion, cough, lower extremity swelling, sore throat, fevers, chills, sweats, blood in urine, dysuria, urinary frequency or urgency, lightheadedness, dizziness, headache, memory loss, loss of consciousness, rash, abnormal bruising or bleeding, imbalance, focal weakness, numbness or tingling in arms or legs, generalized arthralgias or myalgias, back or neck pain, or night sweats. The review of systems is otherwise negative other than for that already noted above, and at least 10 systems have been reviewed. Physical Exam Physical Exam: The patient is awake, alert and oriented 3, well developed and well nourished, normocephalic and atraumatic, lying in bed and in no acute distress. HEENT--PERRL, EOMI, mucous membranes and oropharynx dry. Neck--supple. No JVD. No bruits. Thyroid normal, trachea midline, no adenopathy. Heart--normal S1 and S2. No murmurs, rubs or gallops. Lungs--clear bilaterally, no respiratory distress, no accessory muscle use. Abdomen--normal bowel sounds and soft. Tender along the left abdominal wall. Nondistended Extremities--no cyanosis or clubbing. No edema. Dermatologic--normal skin turgor, normal color, no abnormal lymph nodes, no rash. Neurologic--cranial nerves II through XII grossly intact. Rheumatologic--normal range of motion. Psychiatric--normal affect. Results & Data Vital Signs (Past 12 Hours) Vital Signs Temp Pulse Pulse Resp BP BP Pulse Ox 09/23/19 01:00 77 20 95 09/23/19 00:42 76 18 137/84 94 09/22/19 23:00 80 16 137/84 94 09/22/19 21:40 74 18 153/89 H 95 09/22/19 21:38 82 17 153/89 H 09/22/19 21:10 97 09/22/19 20:42 97.5 F L 89 18 148/81 H 97 Laboratory Results Laboratory Results WBC 10.38 K/uL (4.8-10.8) 09/22/19 21:22 RBC 4.72 M/uL (4.7-6.1) 09/22/19 21:22 Hgb 13.9 g/dL (14.0-18.0) L 09/22/19 21: Hct 41.2 % (42-52) L 09/22/19 21:22 MCV 87.3 fL (80-100) 09/22/19 21:22 MCH 29.4 pg (25-34) 09/22/19 21:22 MCHC 33.7 g/dL (32-36) 09/22/19 21:22 RDW Std Deviation 50.5 fL (36.4-46.3) H 09/22/19 21:22 RDW Coeff of Dena 15.7 % (11.5-14.5) H 09/22/19 21: Plt Count 118 K/uL (130-400) L 09/22/19 21:22 MPV 11.0 fL (7.4-10.4) H 09/22/19 21:22 Immature Gran % (Auto) 0.1 % 09/22/19 21: Neut % (Auto) 80.4 % 09/22/19 21:22 Lymph % (Auto) 9.2 % 09/22/19 21:22 [place] % (Auto) 9.7 % 09/22/19 21:22 Eos % (Auto) 0.4 % 09/22/19 21: Baso % (Auto) 0.2 % 09/22/19 21: Immature Gran # (Auto) 0.01 K/uL (0.00-0.02) 09/22/19 21: Neut # (Auto) 8.34 K/uL (1.4-6.5) H 09/22/19 21:22 Lymph # (Auto) 0.96 K/uL (1.2-3.4) L 09/22/19 21:22 [place] # (Auto) 1.01 K/uL (0.11-0.59) H 09/22/19 21:22 Eos # (Auto) 0.04 K/uL (0-0.5) 09/22/19 21:22 Baso # (Auto) 0.02 K/uL (0-0.2) 09/22/19 21: PT 12.4 Seconds (9.0-12.0) H 09/22/19 21:22 INR 1.2 (0.9-1.1) H 09/22/19 21:22 APTT 25.5 Seconds (21.0-31.0) 09/22/19 21: PTT Ratio 0.9 09/22/19 21:22 Sodium 134 mmol/L (136-145) L 09/22/19 21:22 Potassium 3.7 mmol/L (3.5-5.1) 09/22/19 21:22 Chloride 101 mmol/L (98-107) 09/22/19 21: Carbon Dioxide 23 mmol/L (21-32) 09/22/19 21:22 Anion Gap 10.0 (3-11) 09/22/19 21:22 BUN 23 mg/dl (7-18) H 09/22/19 21:22 Creatinine 1.14 mg/dl (0.6-1.4) 09/22/19 21:22 Est Cr Clr Drug Dosing 55.8 ml/min 09/22/19 21:22 Est GFR ( Amer) 73.5 09/22/19 21:22 Est GFR (Non-Af Amer) 63.4 09/22/19 21:22 BUN/Creatinine Ratio 20.0 (10-20) 09/22/19 21:22 Glucose 117 mg/dl (70-99) H 09/22/19 21:22 POC Lactic Acid Gideon 1.49 mmol/L (0.90-1.70) 09/22/19 23:19 Calcium 8.7 mg/dl (8.5-10.1) 09/22/19 21:22 Total Bilirubin 1.6 mg/dl (0.2-1) H 09/22/19 21:22 AST 28 U/L (15-37) 09/22/19 21:22 ALT 29 U/L (12-78) 09/22/19 21:22 Alkaline Phosphatase 83 U/L (45-117) 09/22/19 21:22 Total Protein 7.4 gm/dl (6.4-8.2) 09/22/19 21:22 Albumin 4.1 gm/dl (3.4-5.0) 09/22/19 21:22 Globulin 3.3 gm/dl (2.5-4.0) 09/22/19 21:22 Albumin/Globulin Ratio 1.2 (0.9-2) 09/22/19 21:22 Stl C. diff Tox B Gene Negative Cdiff Gene (Neg) 09/23/19 02:35 Blood Type O Negative 09/22/19 21:22 Antibody Screen POSITIVE A 09/22/19 21:22 Diagnostic Findings [facility], [place] [phone] CT Scan Report Patient: BERYL JEFFERSONAdmit Date: 09/22/19 MR#: [id number]: [address] [place] [address] Acct ID:[id number]: Date: [address] Zip: [place] [address] Age: 74Location: ED Sex: M Room/Bed: Att Phy:Diagnosis: RECTAL BLEEDING,ABD PAIN Erin Phy: Quirino Hensley, MDService Date: 09/22/19 [facility] Phy:Interpreting Phy: Xander Lau MD Admit Phy: Ordering Phy: Josemanuel Burgess MD cc: ~ CT SCAN OF THE ABDOMEN AND PELVIS WITHOUT CONTRAST CLINICAL HISTORY: Gastrointestinal hemorrhage COMPARISON STUDY: April 25, 2007 TECHNIQUE: CT scan of the abdomen and pelvis was performed from the lung bases to the proximal femurs. Images are reviewed in the axial, sagittal, and coronal planes. IV contrast was not administered for this examination. A dose lowering technique was utilized adhering to the principles of ALARA. CT DOSE: 538.36 mGy.cm FINDINGS: Lower chest: There is moderate to severe pulmonary emphysema. Liver: There is borderline hepatic steatosis. No focal masses are visualized in this noncontrast study. Gallbladder: Unremarkable. Spleen: Normal in size and attenuation. Pancreas: Unremarkable. Adrenal glands: Unremarkable. Kidneys: There are multiple bilateral renal cysts. There is no hydronephrosis. Bowel: There are no transition zones indicate bowel obstruction. There is no evidence of acute appendicitis. There is bowel wall thickening involving the descending colon consistent with a colitis. Peritoneum: There is no intraperitoneal free air or abdominal ascites. There is a small fat-containing right inguinal hernia Vasculature: The abdominal aorta is normal in course and caliber. There is evidence for an aorto bifemoral bypass graft. Adenopathy: None. Pelvic viscera: The prostate is enlarged. Evaluation of pelvis is limited due to artifact from bilateral hip arthroplasties Skeletal structures: No destructive osseous lesions are seen. IMPRESSION: 1. No evidence of bowel obstruction. No evidence of free air 2. Colonic wall thickening involving the entirety of the descending colon indicative of a colitis (infectious/inflammatory versus ischemic). Electronically signed by: Xander Lau M.D. 09/22/2019 9:59 PM Dictated: 09/22/192152 Transcribed: 09/22/192152 Code Status & VTE Plan Code Status Full code VTE Prophylaxis Plan VTE Prophylaxis will be ordered: Yes PG Care Time/CCT Total # of Minutes Spent Total Time Spent with Patient: Total time spent is greater than 50% in coordination of care (as documented) at patient's floor/unit and/or counseling patient:
[2019-09-23] MEDS ORDERED: ACETAMINOPHEN 325 MG TAB PO PRN (01:44)
[2019-09-23] MEDS ORDERED: NITROGLYCERIN SL 0.4 MG/TAB TAB SL PRN (01:44)
[2019-09-23] MEDS ORDERED: ALBUTEROL HFA 8 GM INHALER INH PRN (01:44)
[2019-09-23] MEDS ORDERED: MoRPHine SULFATE 2 MG/ML CARP IV PRN (01:44)
[2019-09-23] MEDS ORDERED: MAGNESIUM HYDROXIDE SUSP 30 ML UDC PO PRN (01:44)
[2019-09-23] MEDS ORDERED: ALUMINUM/MAGNESIUM SUSP 30 ML UDC PO PRN (01:44)
[2019-09-23] MEDS ORDERED: ONDANSETRON INJ 2 MG/ML 2 ML VIAL IV PRN (01:44)
[2019-09-23] MEDS: NSS + 20MEQ KCL 20 MEQ/1,000 ML BAG IV SCH ×2 (06:09→17:40)
[2019-09-23] MEDS: FAMOTIDINE 20 MG in SYRINGE 3 ML IV SCH ×2 (06:09→17:40)
[2019-09-23] MEDS: METOPROLOL SUCC 25MG EXT REL TAB PO SCH (06:10)
[2019-09-23] MEDS: FOLIC ACID 1 MG TAB PO SCH (06:10)
[2019-09-23] MEDS: ASPIRIN 81 MG ECTAB PO SCH (06:11)
[2019-09-23] MEDS: ISOSORBIDE MONO EXTENDED REL 60 MG TABCR PO SCH (06:11)
[2019-09-23 06:17] LABS: Basophils # (auto) 0.02 K/uL (0-0.2); Basophils % (auto) 0.2 %; Eosinophils # (auto) 0.08 K/uL (0-0.5); Eosinophils % (auto) 0.9 %; Hematocrit (blood only) 39.3 % (42-52); Hemoglobin 13.1 g/dL (14.0-18.0); Immature Granulocytes # (auto) 0.02 K/uL (0.00-0.02); Immature Granulocytes % (auto) 0.2 %; Lymphocytes # (auto) 0.89 K/uL (1.2-3.4); Lymphocytes % (auto) 10.1 %; Mean Corpuscular Volume 86.9 fL (80-100); Mean Platelet Volume 10.2 fL (7.4-10.4); Monocytes # (auto) 0.84 K/uL (0.11-0.59); Monocytes % (auto) 9.5 %; Neutrophils # (auto) 6.99 K/uL (1.4-6.5); Neutrophils % (auto) 79.1 %; Platelet Count 101 K/uL (130-400); RDW Coefficient of Variation 15.9 % (11.5-14.5); RDW Standard Deviation 50.6 fL (36.4-46.3); Red Blood Count 4.52 M/uL (4.7-6.1); White Blood Count 8.84 K/uL (4.8-10.8)
[2019-09-23 06:20] LABS: Mean Corpuscular Hgb Conc 33.3 g/dL (32-36)
--- NOTE | 2019-09-23 06:24 | Ultrasound Report ---
Study: Ultrasound Doppler mesenteric HISTORY: Abdominal pain. Colitis. COMPARISON: None. FINDINGS: Moderate loss using increases within the celiac axis and superior mesenteric artery. This s uggests a cyst 50-70% stenosis. The velocity characteristics of the hepatic artery and splenic artery show no significant change from the abdominal aorta. IMPRESSION: 1. 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 2. The remaining arterial vasculature is unremarkable. Electronically signed by: Pablo Eaton M.D. 09/23/2019 6:23 AM
[2019-09-23 06:42] LABS: Albumin Level 3.5 gm/dl (3.4-5.0); BUN Creatinine Ratio 17.9 (10-20); Calcium 8.2 mg/dl (8.5-10.1); Creatinine Clr Calc Pharmacy 64.9 ml/min; Est GFR (African American) 88.3; Est GFR (Non-African American) 76.2; Magnesium 1.6 mg/dl (1.8-2.4); Potassium 3.7 mmol/L (3.5-5.1)
[2019-09-23 06:44] LABS: Albumin Globulin Ratio 1.1 (0.9-2); Bilirubin,Total 1.6 mg/dl (0.2-1); Globulin 3.3 gm/dl (2.5-4.0); Total Protein 6.8 gm/dl (6.4-8.2)
[2019-09-23] MEDS: metroNIDAZOLE 500 MG/100 ML BAG IV SCH ×3 (07:53→23:45)
[2019-09-23] MEDS: FLUTICASONE/UMECLIDIN/VILANTER INH SCH (07:54)
[2019-09-23] MEDS: MAGNESIUM SULFATE / D5W 1 GM/100 ML BAG IV SCH ×2 (08:57→10:24)
[2019-09-23] MEDS ORDERED: PUMP TOP SCH (09:00)
[2019-09-23] MEDS ORDERED: ANDROGEL 1.62% TOP SCH (09:00)
--- NOTE | 2019-09-23 09:42 | Gastroenterology Progress Note ---
Date of Service September 23, 2019 Subjective Patient reports continued epigastric pain rated as 4/10 and reports back pain of 6/10 in intensity. She is awaiting barium swallow study as ordered by Dr. Evangelista. Pending results, a determination will be made about hiatus hernia repair as this was seen on EGD but not seen on chest CT. Results & Data Vital Signs (Past 12 Hours) Vital Signs Temp Pulse Pulse Pulse Resp BP BP 09/23/19 07:32 36.6 C 66 19 09/23/19 05:52 71 16 141/84 H 09/23/19 03:58 36.8 C 70 16 113/60 09/23/19 01:49 36.6 C 67 18 145/96 H 09/23/19 01:30 78 18 137/84 09/23/19 01:00 77 20 09/23/19 00:42 76 18 137/84 09/22/19 23:00 80 16 137/84 09/22/19 21:40 74 18 153/89 H BP Pulse Ox 09/23/19 07:32 120/78 93 09/23/19 05:52 95 09/23/19 03:58 95 09/23/19 01:49 95 09/23/19 01:30 99 09/23/19 01:00 95 09/23/19 00:42 94 09/22/19 23:00 94 09/22/19 21:40 95 PG Care Time/CCT Total # of Minutes Spent Total Time Spent with Patient: Total time spent is greater than 50% in coordination of care (as documented) at patient's floor/unit and/or counseling patient:
--- NOTE | 2019-09-23 09:58 | Gastrointestinal Consultation ---
Date of Consultation September 23, 2019 Assessment & Plan (1) Lower gastrointestinal bleed: (2) Abnormal CT scan, colon: Given findings on mesenteric US and clinical history, most likely ischemic colitis. 1. Recommend clear liquid diet with advancement as tolerated. 2. Ciprofloxacin 400 mg IV every 12 hours and Metronidazole 500 mg IV every 8 hours. Should complete a 10 day course of antibiotics to prevent secondary bacterial translocation. 3. Avoid NSAID pain relievers. 4. Continue supportive care. 5. Plan for outpatient colonoscopy in 6 weeks. Supervising Physician Co-Signing Physician Notes I personally evaluated the patient and agree with the findings as documented by ADRY Miranda Exam: abd: soft, nt, nd History of Present Illness Reason for Consultation: Colitis Requesting Physician: Dr. Kenney Attending Physician: Harinder Cohen MD History of Present Illness Patient is a 74 year-old male with a history of DC, AICD placement, emphysema, HTN, hyperlipidemia, aortobifemoral bypass graft, and AAA repair admitted after a sudden onset of rectal bleeding which he reports began approximately 18 hours prior to arrival. The bleeding was associated with mild left lower quadrant pain. States he stopped eating to "see if that would help" but bleeding persisted and he did seek ER evaluation last night. The blood was associated with loose and mucoid stools. No fevers/chills or nausea/vomiting. +Bloating. He rates the LLQ pain as 3/10 at present. In the ER, a C Diff specimen was sent and negative. CT a/p was obtained and demonstrated nonspecific bowel wall thickening of the descending colon. Mesenteric US was performed and was significant for "moderate narrowing of the origin of the celiac axis and superior mesenteric artery". Laboratory testing was reviewed and there was no leukocytosis. H&H 13.1/39.3%. Lactic acid 1.49. Allergies Allergy/AdvReac Type Severity Reaction Status Date / Time amoxicillin Allergy Mild RASH/ITCHIN Verified 09/19/19 11:00 G lactose AdvReac Intermediate GI SYMPTOMS Verified 09/19/19 11:00 benzalkonium chloride AdvReac Mild ITCHING/SWE Verified 09/19/19 11:00 LLING/RASH gluten AdvReac Unknown gluten Verified 09/19/19 11:00 intolerant per EGD Home Medications Home Medications Medication Instructions Recorded Confirmed Type amlodipine 2.5 mg PO DAILY 11/13/18 09/22/19 History aspirin 81 mg PO DAILY 11/13/18 09/22/19 History atorvastatin 80 mg PO PM 11/13/18 09/22/19 History clopidogrel [Plavix] 75 mg PO DAILY 11/13/18 09/22/19 History folic acid 1 mg PO QAM 11/13/18 09/22/19 History furosemide 40 mg PO Q2D 11/13/18 09/22/19 History metoprolol succinate 25 mg PO QAM 11/13/18 09/22/19 History omeprazole 40 mg PO BID 11/13/18 09/22/19 History losartan 25 mg tablet 25 mg PO DAILY 08/12/19 09/22/19 History albuterol sulfate 90 mcg/actuation 90 mcg INH Q6H PRN #1 ea 08/29/19 09/22/19 Rx breath activated powder inhaler iron,carbonyl 65 mg-vitamin C 125 1 tab PO 3XWK 08/29/19 09/22/19 History mg tablet,delayed release nitroglycerin 0.4 mg sublingual 0.4 mg SL Q5M PRN 08/29/19 09/22/19 History tablet testosterone 20.25 mg/1.25 gram 2 pump TRANSDERMAL DAILY #3 btl 09/11/19 09/22/19 Rx (1.62 %) transdermal gel pump cholecalciferol (vitamin D3) 2,000 unit PO DAILY 09/22/19 09/22/19 History bczcrckilfv-ppknmwtmr-howpprff 1 inh INHALATION DAILY 09/22/19 09/22/19 History [Trelegy Ellipta] isosorbide mononitrate 60 mg PO DAILY 09/22/19 09/22/19 History zolpidem 5 - 10 mg PO HS PRN 09/22/19 09/22/19 History Patient History Medical History Diabetes Hypertension Hyperlipidemia Myocardial Infarction most recent 2013, adjust med and icd inserted ICD (implantable cardioverter-defibrillator) in place medtronic [address] Rohith SAUCEDA (gastroesophageal reflux disease) Arthritis (Chronic) Ventricular tachycardia (Acute) Migraine (Acute) Encounter for pre-operative examination Pituitary adenoma removal of adenoma from pituitary 2016 Surgical History History of cardiac cath 1985 and 1994 no stents History of colonoscopy History of abdominal aortic aneurysm (AAA) repair 2006 Hx of euvmu-rtkgs-afjoeqb bypass right and left leg History of total hip arthroplasty right and left Family History Other Cancer Social History Preferred Language: Thai Communication Ability: Effective Clinical Team Manager Required: No Beliefs That Will Affect Care: None Current Living Situation: Alone Other Information That Helps Us Care for You: No Feels Safe at Home: Yes Safety Concerns: Feels Safe At This Time Smoking Status: Former smoker Age Started Using Tobacco: 19 ; Age Quit Using Tobacco: 61 ; packs per day: 1.5 ; Number of Years Since Quit: 13 ; Second Hand Exposure: No ; Hx Alcohol Use: Yes Alcohol type: hard liquor Hx Substance Use: No Review of Systems Constitutional: as per Subjective / HPI Eyes: no problem reported Ear, Nose, Mouth, Throat: no problem reported Respiratory: + dyspnea and + dyspnea on exertion Cardiovascular: + chest pain; no palpitations Gastrointestinal: as per Subjective / HPI Genitourinary: no problem reported Musculoskeletal: no problem reported Integumentary: no problem reported Neurologic: no problem reported Psychiatric: no problem reported Physical Exam Constitutional: WD/WN, vitals as above Eyes: EOM intact bilaterally Neck: normal visual inspection Respiratory: normal respiratory effort, lungs clear to auscultation Cardiovascular: Rate/Rhythm: regular rate and regular rhythm Gastrointestinal (Abdomen): Inspection/Auscultation: normal bowel sounds Percussion/Palpation: + abdomen tender (left flank) and abdomen soft Musculoskeletal: Gait: normal gait Skin: no rashes, warm and dry Psychiatric: A+Ox3, euthymic affect Results & Data Vital Signs (Past 12 Hours) Vital Signs Temp Pulse Pulse Pulse Resp BP BP 09/23/19 07:32 36.6 C 66 19 09/23/19 05:52 71 16 141/84 H 09/23/19 03:58 36.8 C 70 16 113/60 09/23/19 01:49 36.6 C 67 18 145/96 H 09/23/19 01:30 78 18 137/84 09/23/19 01:00 77 20 09/23/19 00:42 76 18 137/84 09/22/19 23:00 80 16 137/84 BP Pulse Ox 09/23/19 07:32 120/78 93 09/23/19 05:52 95 09/23/19 03:58 95 09/23/19 01:49 95 09/23/19 01:30 99 09/23/19 01:00 95 09/23/19 00:42 94 09/22/19 23:00 94 Laboratory Results Abnormal lab results 09/22/19 09/22/19 09/22/19 Range/Units 21:22 21:22 21:22 RBC (4.7-6.1) M/uL Hgb 13.9 L (14.0-18.0) g/dL Hct 41.2 L (42-52) % RDW Std Deviation 50.5 H (36.4-46.3) fL RDW Coeff of Dena 15.7 H (11.5-14.5) % Plt Count 118 L (130-400) K/uL MPV 11.0 H (7.4-10.4) fL Neut # (Auto) 8.34 H (1.4-6.5) K/uL Lymph # (Auto) 0.96 L (1.2-3.4) K/uL [place] # (Auto) 1.01 H (0.11-0.59) K/uL PT 12.4 H (9.0-12.0) Seconds INR 1.2 H (0.9-1.1) Sodium 134 L (136-145) mmol/L Chloride (98-107) mmol/L BUN 23 H (7-18) mg/dl Glucose 117 H (70-99) mg/dl Calcium (8.5-10.1) mg/dl Magnesium (1.8-2.4) mg/dl Total Bilirubin 1.6 H (0.2-1) mg/dl Antibody Screen 09/22/19 09/23/19 09/23/19 Range/Units 21:22 06:08 06:08 RBC 4.52 L (4.7-6.1) M/uL Hgb 13.1 L (14.0-18.0) g/dL Hct 39.3 L (42-52) % RDW Std Deviation 50.6 H (36.4-46.3) fL RDW Coeff of Dena 15.9 H (11.5-14.5) % Plt Count 101 L (130-400) K/uL MPV (7.4-10.4) fL Neut # (Auto) 6.99 H (1.4-6.5) K/uL Lymph # (Auto) 0.89 L (1.2-3.4) K/uL [place] # (Auto) 0.84 H (0.11-0.59) K/uL PT (9.0-12.0) Seconds INR (0.9-1.1) Sodium (136-145) mmol/L Chloride 109 H (98-107) mmol/L BUN (7-18) mg/dl Glucose (70-99) mg/dl Calcium 8.2 L (8.5-10.1) mg/dl Magnesium 1.6 L (1.8-2.4) mg/dl Total Bilirubin 1.6 H (0.2-1) mg/dl Antibody Screen POSITIVE A PG Care Time/CCT Total # of Minutes Spent Total Time Spent with Patient: Total time spent is greater than 50% in rehabilitation program coordinator rdination of care (as documented) at patient's floor/unit and/or counseling patient:
[2019-09-23] MEDS: CIPROFLOXACIN 400 MG/200 ML BAG IV SCH ×2 (11:36→20:46)
--- NOTE | 2019-09-23 17:43 | Hospitalist Progress Note ---
Date of Service September 23, 2019 Assessment & Plan (1) Colitis: Descending colon colitis/lower GI bleed- Differential includes food poisoning/diverticulitis/ischemia/other- No ELIA visualized on US mesenteric arteries however patient clinically improving therefore will not pursue further unless increasing abdominal pain suggestive of mesenteric ischemia. C. diff negative. Stool culture pending Ciprofloxacin restarted by gastroenterology in addition to metronidazole for infective cause. Tolerating increase in diet well - will d/c IV fluids given significant cardiac history requiring lasix at baseline Zofran 4 mg IV every 6 hours as needed Morphine sulfate 2 mg IV every 3 hours as needed severe pain Acetaminophen 600 mg p.o. every 6 hours PRN mild pain or temperature. (2) Lower gastrointestinal bleed: See above (3) Hypertension: CAD/hypertension/history of DE/history of sudden cardiac /history of V. tach/AICD pacer- Continue amlodipine 2.5 mg daily. Hold furosemide. Continue isosorbide mononitrate 60 mg daily and metoprolol succinate 25 mg every morning. Hold losartan (4) Hyperlipidemia: Continue atorvastatin 80 mg daily (5) ICD (implantable cardioverter-defibrillator) in place: Normal telemetry (6) History of abdominal aortic aneurysm (AAA) repair: s/p aortoiliac bypass graft for ruptured AAA 2006 (7) Hx of migle-qkhxx-awhmqvr bypass: Noted (8) Ventricular tachycardia: History of... Noted (9) History of sudden cardiac successfully resuscitated: OOH cardiac arrest May 2014 Ischemic cardiomyopathy 30-35% Continue on PCU for now. (10) Pituitary adenoma: s/p resection Continue testosterone (11) Coronary artery disease: s/p inferior [place] and PTCA of RCA 1995 Severe multivessel CAD with poor surgical an interventional targets May 2014 Stable angina (12) Hypomagnesemia: Will aggressively treat with IV Mg sulphate replacement given cardiac history aim > 2 (13) Hypokalemia: (14) DVT prophylaxis: SCD Chemical prophylaxis contraindicated given GI bleed Subjective Feeling better since admission. Tolerating diet Review of Systems Review of Systems: All systems reviewed & are unremarkable except as noted in HPI & below Physical Exam Respiratory: normal respiratory effort, lungs clear to auscultation Cardiovascular: Rate/Rhythm: regular rate and regular rhythm Gastrointestinal (Abdomen): Inspection/Auscultation: normal bowel sounds Percussion/Palpation: + abdomen tender (RLQ mild) and abdomen soft Results & Data Vital Signs (Past 12 Hours) Vital Signs Temp Pulse Pulse Pulse Resp BP BP 09/23/19 16:00 78 09/23/19 15:50 97.5 F L 70 22 133/78 09/23/19 10:43 97.5 F L 60 19 116/71 09/23/19 08:00 78 09/23/19 07:32 97.9 F 66 19 120/78 09/23/19 05:52 71 16 141/84 H Pulse Ox 09/23/19 16:00 09/23/19 15:50 95 09/23/19 10:43 97 09/23/19 08:00 09/23/19 07:32 93 09/23/19 05:52 95 PG Care Time/CCT Total # of Minutes Spent Total Time Spent with Patient: Total time spent is greater than 50% in coordination of care (as documented) at patient's floor/unit and/or counseling patient: (1) Hyperlipidemia Hyperlipidemia type: unspecified Qualified Code(s): E78.5 - Hyperlipidemia, unspecified (2) Hypertension Hypertension type: essential hypertension Qualified Code(s): I10 - Essential (primary) hypertension
[2019-09-23] MEDS: ATORVASTATIN 40 MG TAB PO SCH (20:46)
[2019-09-23] MEDS ORDERED: ZOLPIDEM TARTRATE 5 MG TAB PO PRN (21:07)
[2019-09-23] MEDS: ZOLPIDEM TARTRATE 5 MG TAB PO PRN (23:45)
[2019-09-24] MEDS: FAMOTIDINE 20 MG in SYRINGE 3 ML IV SCH ×2 (06:04→18:32)
[2019-09-24 06:39] LABS: Hematocrit (blood only) 35.6 % (42-52); Hemoglobin 12.1 g/dL (14.0-18.0); Mean Corpuscular Hemoglobin 29.4 pg (25-34); Mean Corpuscular Volume 86.4 fL (80-100); RDW Standard Deviation 51.4 fL (36.4-46.3); Red Blood Count 4.12 M/uL (4.7-6.1)
[2019-09-24 06:59] LABS: Mean Platelet Volume 10.4 fL (7.4-10.4); Platelet Count 95 K/uL (130-400)
[2019-09-24 07:00] LABS: Basophils # (auto) 0.05 K/uL (0-0.2); Basophils % (auto) 0.7 %; Echinocytes 1+; Eosinophils # (auto) 0.15 K/uL (0-0.5); Immature Granulocytes # (auto) 0.01 K/uL (0.00-0.02); Immature Granulocytes % (auto) 0.1 %; Lymphocytes # (auto) 0.92 K/uL (1.2-3.4); Lymphocytes % (auto) 12.1 %; Monocytes % (auto) 9.2 %; Neutrophils # (auto) 5.77 K/uL (1.4-6.5); Neutrophils % (auto) 75.9 %; Platelet Estimate Decreased (Normal)
[2019-09-24 07:43] LABS: Albumin Globulin Ratio 1.1 (0.9-2); Albumin Level 3.2 gm/dl (3.4-5.0); BUN Creatinine Ratio 10.5 (10-20); Bilirubin,Total 1.3 mg/dl (0.2-1); Calcium 8.1 mg/dl (8.5-10.1); Creatinine Clr Calc Pharmacy 68.4 ml/min; Est GFR (African American) 94.1; Est GFR (Non-African American) 81.2; Globulin 2.9 gm/dl (2.5-4.0); Magnesium 2.2 mg/dl (1.8-2.4); Potassium 3.4 mmol/L (3.5-5.1); Total Protein 6.1 gm/dl (6.4-8.2)
[2019-09-24] MEDS: ISOSORBIDE MONO EXTENDED REL 60 MG TABCR PO SCH (08:48)
[2019-09-24] MEDS: FOLIC ACID 1 MG TAB PO SCH (08:48)
[2019-09-24] MEDS: ASPIRIN 81 MG ECTAB PO SCH (08:48)
[2019-09-24] MEDS: METOPROLOL SUCC 25MG EXT REL TAB PO SCH (08:49)
[2019-09-24] MEDS: FLUTICASONE/UMECLIDIN/VILANTER INH SCH (08:49)
[2019-09-24] MEDS: PUMP TOP SCH (08:49)
[2019-09-24] MEDS: ANDROGEL 1.62% TOP SCH (08:49)
[2019-09-24] MEDS: metroNIDAZOLE 500 MG/100 ML BAG IV SCH ×2 (08:50→16:31)
[2019-09-24] MEDS: CIPROFLOXACIN 400 MG/200 ML BAG IV SCH (08:51)
[2019-09-24] MEDS: POTASSIUM CHLORIDE 20 MEQ TABCR PO SCH ×2 (09:00→20:34)
--- NOTE | 2019-09-24 10:07 | Gastroenterology Progress Note ---
Date of Service September 24, 2019 Assessment & Plan (1) Lower gastrointestinal bleed: (2) Abnormal CT scan, colon: Given findings on mesenteric US and clinical history, most likely ischemic colitis. 1. Recommend diet advancement to soft, low residue as tolerated. 2. Ciprofloxacin 400 mg IV every 12 hours and Metronidazole 500 mg IV every 8 hours. Should complete a 10 day course of antibiotics to prevent secondary bacterial translocation. 3. Avoid NSAID pain relievers. 4. Continue supportive care. 5. Plan for outpatient colonoscopy in 6 weeks. Supervising Physician Co-Signing Physician Notes Agree with ADRY Miranda Abd: Soft, NT, ND, +BS Continue current therapy Outpatient colonoscopy in 6 weeks. Subjective Patient reports improved abdominal pain. Did pass some liquid and bloody stool last evening but reports the quantity was small. Tolerating clear liquid diet and is requesting diet advancement. Continues IV Cipro and Flagyl. Vital signs stable. H&H did drop slightly to 12.1 and 35.6 today. Review of Systems Review of Systems: All systems reviewed & are unremarkable except as noted in HPI & below Physical Exam Constitutional: WD/WN, vitals as above Neck: normal visual inspection Respiratory: normal respiratory effort, lungs clear to auscultation Cardiovascular: Rate/Rhythm: regular rate and regular rhythm Gastrointestinal (Abdomen): Inspection/Auscultation: abdomen normal to inspection and normal bowel sounds Percussion/Palpation: abdomen soft; abdomen nontender Skin: no rashes, warm and dry Psychiatric: A+Ox3, euthymic affect Results & Data Vital Signs (Past 12 Hours) Vital Signs Temp Pulse Pulse Resp BP BP Pulse Ox 09/24/19 07:05 36.5 C 75 18 135/84 94 09/24/19 03:10 36.7 C 70 16 120/75 91 09/23/19 23:47 36.6 C 71 16 128/68 91 PG Care Time/CCT Total # of Minutes Spent Total Time Spent with Patient: Total time spent is greater than 50% in coordination of care (as documented) at patient's floor/unit and/or counseling patient:
--- NOTE | 2019-09-24 18:27 | Hospitalist Progress Note ---
Date of Service September 24, 2019 Assessment & Plan (1) Colitis: Descending colon. Most likely ischemic given CT and u/s findings. IMPROVED. Advance diet to full liquids today; then low fiber tomorrow. C diff neg. Stool cx neg. Appreciate GI consult and recs. Mild acute blood loss anemia due to colitis/GI bleeding - stable H/H today. D/c IV cipro/flagyl -- convert to PO formulation. Needs outpatient colonoscopy in 6 weeks. (2) Acute blood loss anemia: mild, 2nd to ischemic colitis. cbc in am. rectal bleeding has resolved. (3) Lower gastrointestinal bleed: See above 2nd ischemic colitis (4) Hypertension: can likely resume losartan and lasix in am cont other meds in meantime (5) Hyperlipidemia: Continue atorvastatin 80 mg daily (6) ICD (implantable cardioverter-defibrillator) in place: noted tele wnl this admission (7) History of abdominal aortic aneurysm (AAA) repair: s/p aortoiliac bypass graft for ruptured AAA 2006 (8) Hx of isxts-plett-hpbhvqd bypass: Noted (9) Ventricular tachycardia: History of s/p AICD placement in past no recent discharges from device (10) History of sudden cardiac successfully resuscitated: OOH cardiac arrest May 2014 Ischemic cardiomyopathy 30-35% (11) Pituitary adenoma: s/p resection Continue testosterone (12) Coronary artery disease: s/p inferior [place] and PTCA of RCA 1995 Severe multivessel CAD by history no recent ischemic symptoms resume plavix tomorrow cont asa cont CCB, imdur, BB, statin, etc (13) Hypomagnesemia: resolved (14) Hypokalemia: oral replacement today repeat BMP am (15) DVT prophylaxis: SCD Chemical prophylaxis contraindicated given GI bleeding d/c tele status transfer to med/surg anticipate d/c home tomorrow Subjective tele stable overnight feeling good tolerating clears no further BRBPR scant left sided abdominal discomfort no nausea or vomiting ambulating Review of Systems Constitutional: no fever and no chills Respiratory: no dyspnea Cardiovascular: no chest pain Physical Exam Constitutional: well developed and well nourished; no acute distress and no altered mental status ENMT: external ear and nose normal, oropharynx normal Respiratory: normal respiratory effort, lungs clear to auscultation Cardiovascular: Rate/Rhythm: regular rate and regular rhythm Heart Sounds: normal S1 and normal S2; no murmur Vessels: posterior tibial pulses present and dorsalis pedis pulses present; no JVD Extremities: no edema Gastrointestinal (Abdomen): normal bowel sounds, soft, nontender, no hepatosplenomegaly Psychiatric: A+Ox3, euthymic affect Results & Data Vital Signs (Past 12 Hours) Vital Signs Temp Pulse Pulse Pulse Resp BP BP 09/24/19 18:23 36.4 C L 77 18 144/79 H 09/24/19 15:43 36.6 C 70 18 132/79 09/24/19 12:08 36.2 C L 66 18 112/72 09/24/19 08:00 67 09/24/19 07:05 36.5 C 75 18 135/84 Pulse Ox 09/24/19 18:23 97 09/24/19 15:43 94 09/24/19 12:08 94 09/24/19 08:00 09/24/19 07:05 94 Laboratory Results Laboratory Results - last 24 hr 09/22/19 09/23/19 09/24/19 22:18 20:19 06:22 WBC RBC Hgb Hct MCV MCH MCHC RDW Std Deviation RDW Coeff of Dena Plt Count MPV Immature Gran % (Auto) Neut % (Auto) Lymph % (Auto) Lucas % (Auto) Eos % (Auto) Baso % (Auto) Immature Gran # (Auto) Neut # (Auto) Lymph # (Auto) Lucas # (Auto) Eos # (Auto) Baso # (Auto) Platelet Estimate Echinocytes Sodium 143 Potassium 3.4 L Chloride 113 H Carbon Dioxide 23 Anion Gap 6.0 BUN 10 D Creatinine 0.93 Est Cr Clr Drug Dosing 68.4 Est GFR ( Amer) 94.1 Est GFR (Non-Af Amer) 81.2 BUN/Creatinine Ratio 10.5 Glucose 98 POC Glucose 103 H Calcium 8.1 L Magnesium 2.2 Total Bilirubin 1.3 H AST 23 ALT 21 Alkaline Phosphatase 61 Total Protein 6.1 L Albumin 3.2 L Globulin 2.9 Albumin/Globulin Ratio 1.1 POC Stool Occult Blood Negative 09/24/19 09/24/19 09/24/19 06:22 07:11 11:21 WBC 7.60 RBC 4.12 L Hgb 12.1 L Hct 35.6 L MCV 86.4 MCH 29.4 MCHC 34.0 RDW Std Deviation 51.4 H RDW Coeff of Dena 16.0 H Plt Count 95 L MPV 10.4 Immature Gran % (Auto) 0.1 Neut % (Auto) 75.9 Lymph % (Auto) 12.1 Lucas % (Auto) 9.2 Eos % (Auto) 2.0 Baso % (Auto) 0.7 Immature Gran # (Auto) 0.01 Neut # (Auto) 5.77 Lymph # (Auto) 0.92 L Lucas # (Auto) 0.70 H Eos # (Auto) 0.15 Baso # (Auto) 0.05 Platelet Estimate Decreased L Echinocytes 1+ Sodium Potassium Chloride Carbon Dioxide Anion Gap BUN Creatinine Est Cr Clr Drug Dosing Est GFR ( Amer) Est GFR (Non-Af Amer) BUN/Creatinine Ratio Glucose POC Glucose 98 120 H Calcium Magnesium Total Bilirubin AST ALT Alkaline Phosphatase Total Protein Albumin Globulin Albumin/Globulin Ratio POC Stool Occult Blood 09/24/19 16:46 WBC RBC Hgb Hct MCV MCH MCHC RDW Std Deviation RDW Coeff of Dena Plt Count MPV Immature Gran % (Auto) Neut % (Auto) Lymph % (Auto) Lucas % (Auto) Eos % (Auto) Baso % (Auto) Immature Gran # (Auto) Neut # (Auto) Lymph # (Auto) Lucas # (Auto) Eos # (Auto) Baso # (Auto) Platelet Estimate Echinocytes Sodium Potassium Chloride Carbon Dioxide Anion Gap BUN Creatinine Est Cr Clr Drug Dosing Est GFR ( Amer) Est GFR (Non-Af Amer) BUN/Creatinine Ratio Glucose POC Glucose 104 H Calcium Magnesium Total Bilirubin AST ALT Alkaline Phosphatase Total Protein Albumin Globulin Albumin/Globulin Ratio POC Stool Occult Blood PG Care Time/CCT Total # of Minutes Spent Total Time Spent with Patient: Total time spent is greater than 50% in coordination of care (as documented) at patient's floor/unit and/or counseling patient: (1) Hypertension Hypertension type: essential hypertension Qualified Code(s): I10 - Essential (primary) hypertension (2) Hyperlipidemia Hyperlipidemia type: unspecified Qualified Code(s): E78.5 - Hyperlipidemia, unspecified (3) Coronary artery disease Coronary Disease-Associated Artery/Lesion type: [place] artery [place] vs. transplanted heart: [place] heart Associated angina: without angina Qualified Code(s): I25.10 - Atherosclerotic heart disease of [place] coronary artery without angina pectoris
[2019-09-24] MEDS: ATORVASTATIN 40 MG TAB PO SCH ×2 (20:34→21:07)
[2019-09-24] MEDS: PANTOprazole 40 MG TAB PO SCH ×2 (20:34→21:08)
[2019-09-24] MEDS: CIPROFLOXACIN 500 MG TAB PO SCH ×2 (20:35→21:07)
[2019-09-24] MEDS: metroNIDAZOLE 500 MG TAB PO SCH (21:08)
[2019-09-25] MEDS: ZOLPIDEM TARTRATE 5 MG TAB PO PRN (00:14)
[2019-09-25 07:26] LABS: Hematocrit (blood only) 36.6 % (42-52); Hemoglobin 12.1 g/dL (14.0-18.0); Mean Corpuscular Hemoglobin 29.4 pg (25-34); Mean Corpuscular Hgb Conc 33.1 g/dL (32-36); Mean Corpuscular Volume 89.1 fL (80-100); Mean Platelet Volume 10.6 fL (7.4-10.4); Platelet Count 97 K/uL (130-400); RDW Coefficient of Variation 16.1 % (11.5-14.5); RDW Standard Deviation 52.7 fL (36.4-46.3); Red Blood Count 4.11 M/uL (4.7-6.1); White Blood Count 6.11 K/uL (4.8-10.8)
[2019-09-25 07:48] LABS: BUN Creatinine Ratio 7.9 (10-20); Calcium 8.3 mg/dl (8.5-10.1); Est GFR (African American) 80.3; Est GFR (Non-African American) 69.3; Potassium 3.8 mmol/L (3.5-5.1)
[2019-09-25] MEDS: CIPROFLOXACIN 500 MG TAB PO SCH (08:29)
[2019-09-25] MEDS: ASPIRIN 81 MG ECTAB PO SCH (08:29)
[2019-09-25] MEDS: FOLIC ACID 1 MG TAB PO SCH (08:30)
[2019-09-25] MEDS: metroNIDAZOLE 500 MG TAB PO SCH ×2 (08:31→13:49)
[2019-09-25] MEDS: ISOSORBIDE MONO EXTENDED REL 60 MG TABCR PO SCH (08:31)
[2019-09-25] MEDS: METOPROLOL SUCC 25MG EXT REL TAB PO SCH (08:32)
[2019-09-25] MEDS: PANTOprazole 40 MG TAB PO SCH (08:32)
[2019-09-25] MEDS: POTASSIUM CHLORIDE 20 MEQ TABCR PO SCH (08:32)
[2019-09-25] MEDS: PUMP TOP SCH (08:33)
[2019-09-25] MEDS: ANDROGEL 1.62% TOP SCH (08:33)
[2019-09-25] MEDS: FLUTICASONE/UMECLIDIN/VILANTER INH SCH (08:33)
--- NOTE | 2019-09-25 09:49 | Gastroenterology Progress Note ---
Date of Service September 25, 2019 Assessment & Plan (1) Lower gastrointestinal bleed: (2) Abnormal CT scan, colon: Given findings on mesenteric US and clinical history, most likely ischemic colitis. 1. Continue soft, low residue as tolerated. 2. Complete a 10 day course of antibiotics to prevent secondary bacterial translocation as prescribed. 3. Avoid NSAID pain relievers. 4. Outpatient colonoscopy in 6 weeks. This testing is being arranged by our office and appointment details will be communicated to the patient. 5. Office follow up after procedure or sooner if new or worsening symptoms. 6. Okay for discharge from GI perspective if cleared by primary team. Supervising Physician Co-Signing Physician Notes I personally evaluated the patient and agree with the findings as documented by ADRY Miranda Exam: abd: soft, nt, nd Subjective Patient reports feeling well today and verbalizes desire for discharge. Abdominal pain has nearly resolved. Tolerating diet. H&H stable. No other GI complaints. Review of Systems Review of Systems: All systems reviewed & are unremarkable except as noted in HPI & below Physical Exam Constitutional: WD/WN, vitals as above Respiratory: normal respiratory effort, lungs clear to auscultation Cardiovascular: RRR, no murmur, no edema Gastrointestinal (Abdomen): normal bowel sounds, soft, nontender, no hepatosplenomegaly Psychiatric: A+Ox3, euthymic affect Results & Data Vital Signs (Past 12 Hours) Vital Signs Temp Pulse Pulse Resp BP BP Pulse Ox 09/25/19 07:29 36.6 C 63 20 113/70 95 09/24/19 23:22 36.7 C 71 20 143/79 H 93 Laboratory Results Abnormal lab results 09/24/19 09/24/19 09/25/19 Range/Units 11:21 16:46 07:05 RBC 4.11 L (4.7-6.1) M/uL Hgb 12.1 L (14.0-18.0) g/dL Hct 36.6 L (42-52) % RDW Std Deviation 52.7 H (36.4-46.3) fL RDW Coeff of Dena 16.1 H (11.5-14.5) % Plt Count 97 L (130-400) K/uL MPV 10.6 H (7.4-10.4) fL Chloride (98-107) mmol/L BUN/Creatinine Ratio (10-20) POC Glucose 120 H 104 H (70-99) Calcium (8.5-10.1) mg/dl 09/25/19 Range/Units 07:05 RBC (4.7-6.1) M/uL Hgb (14.0-18.0) g/dL Hct (42-52) % RDW Std Deviation (36.4-46.3) fL RDW Coeff of Dena (11.5-14.5) % Plt Count (130-400) K/uL MPV (7.4-10.4) fL Chloride 112 H (98-107) mmol/L BUN/Creatinine Ratio 7.9 L (10-20) POC Glucose (70-99) Calcium 8.3 L (8.5-10.1) mg/dl PG Care Time/CCT Total # of Minutes Spent Total Time Spent with Patient: Total time spent is greater than 50% in coordination of care (as documented) at patient's floor/unit and/or counseling patient:
--- NOTE | 2019-09-25 13:39 | Discharge Summary ---
Date of Service date of admission - September 23, 2019 date of discharge - September 25, 2019 Admission HPI Per Admitting Provider The patient is a 74-year-old male with a past medical history including myocardial infarction, AICD placement, GERD, hyperlipidemia, hypertension, AAA repair, aortic iliac femoral bypass, sudden cardiac and pituitary adenoma, who presents to the emergency department with acute onset of a large bloody bowel movement after a meal containing shrimp and other foods. He has had intermittent abdominal pain along the descending colon area since that time, and has had a few BMs with mucus and mixtures of bright red blood. He has had had colonoscopies in the past noted to have diverticuli. He is not aware of anyone else who ate with him being sick. Principal Diagnosis ischemic colitis Discharge Exam Constitutional well developed and well nourished; no acute distress and no altered mental status ENMT external ear and nose normal, oropharynx normal Respiratory normal respiratory effort, lungs clear to auscultation Cardiovascular Rate/Rhythm: regular rate and regular rhythm Heart Sounds: normal S1 and normal S2; no murmur Vessels: posterior tibial pulses present and dorsalis pedis pulses present; no JVD Extremities: no edema Gastrointestinal (Abdomen) normal bowel sounds, soft, nontender, no hepatosplenomegaly Psychiatric A+Ox3, euthymic affect Discharge Data Allergies Allergy/AdvReac Type Severity Reaction Status Date / Time amoxicillin Allergy Mild RASH/ITCHIN Verified 09/19/19 11:00 G lactose AdvReac Intermediate GI SYMPTOMS Verified 09/19/19 11:00 benzalkonium chloride AdvReac Mild ITCHING/SWE Verified 09/19/19 11:00 LLING/RASH gluten AdvReac Unknown gluten Verified 09/19/19 11:00 intolerant per EGD Consultations gastroenterology - Kirill Case DO Ordered Studies 1. CT abd/pelvis - IMPRESSION: 1. No evidence of bowel obstruction. No evidence of free air 2. Colonic wall thickening involving the entirety of the descending colon indicative of a colitis (infectious/inflammatory versus ischemic). 2. mesenteric doppler - IMPRESSION: 1. 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 2. The remaining arterial vasculature is unremarkable. Hospital Course (1) Colitis: Descending colon. Most likely ischemic in etiology given CT and u/s findings. C diff and stool cultures were negative. He improved with supportive care, IV fluids, and time. Cipro/flagyl were provided to prevent bacterial translocation in the face of the colitis. Ultimately he was resumed on a diet and this was advanced to low fiber prior to discharge without any difficulty. Blood per rectum resolved prior to discharge as did his abdominal pain. He was seen in consult by [facility] who advised - * 10 day course of cipro/flagyl * outpatient colonoscopy in 6 weeks * low fiber diet for ~10 days post-discharge Colitis was complicated by mild acute blood loss anemia. See below. (2) Acute blood loss anemia: mild, 2nd to ischemic colitis. rectal bleeding resolved prior to discharge. presenting hemoglobin - 13.9 discharge hemoglobin - 12.1 (3) Lower gastrointestinal bleed: See above 2nd ischemic colitis (4) Hypertension: losartan and lasix held during the stay but resumed at discharge. other BP meds were continued throughout the hospitalization. (5) Hyperlipidemia: Continue atorvastatin 80 mg daily (6) ICD (implantable cardioverter-defibrillator) in place: tele wnl this admission (7) History of abdominal aortic aneurysm (AAA) repair: s/p aortoiliac bypass graft for ruptured AAA 2006 (8) Hx of dtsda-utzin-fghkgjr bypass: (9) Ventricular tachycardia: History of s/p AICD placement in past no recent discharges from device (10) History of sudden cardiac successfully resuscitated: OOH cardiac arrest May 2014 has known Ischemic cardiomyopathy 30-35% no decompensation while hospitalized (11) Pituitary adenoma: s/p resection Continue testosterone (12) Coronary artery disease: s/p inferior [place] and PTCA of RCA 1995 Severe multivessel CAD by history no recent ischemic symptoms plavix was HELD during the stay because of GI bleeding He will resume the plavix 24 hours post-discharge cont asa cont CCB, imdur, BB, statin, etc (13) Hypomagnesemia: repleted and resolved (14) Hypokalemia: repleted and resolved Total Time Total Time Spent Total Time Spent (In Minutes): 40 Total Time Includes: Examination of the Patient, Discharge Planning and Medication Reconciliation Discharge Plan Discharge Items Patient Disposition: Home - Self-Care Reason For Visit: COLITIS, GI BLEEDING Discharge Diagnosis: Colitis - likely due to "ischemic colitis" - resolved Activity: As commented below Activity Comment: take it easy for the next 2-3 days then gradually increase activities Non-emergency contact: Primary Care Provider and Business Segment Manager Call non-emergency contact if: you have any medication questions, your symptoms worsen, your pain is not controlled and your pain is worsening Follow-up/Referrals: Kirill Storm DO [Physician] - (see Dr Storm for colonoscopy in 6-8 weeks) Quirino Hensley MD [Primary Care Provider] - 10/01/19 2:30 pm (Please, follow up at Dr. Hensley's office with his associate, Monie Whitfield PA-C, on SundayOctober 01 at 2:30 pm. *If you need to change this appointment, call the office at [phone].) Diet: Gluten Free, Low Fiber and Lactose Intolerant Addtl Attending Provider Instructions: You were treated for colitis which is inflammation and illness of the colon. It was suspected that your colitis was caused by ischemia which is when there is poor blood flow through the arteries in the abdomen that go to your colon. We did indeed find plaque build-up in your arteries in the abdominal cavity. The treatment of the plaque build-up in these arteries is the same as plaque build-up in your heart arteries - cholesterol medication, aspirin, etc. We did not find any infection in your colon/stool while here. Recommendations - 1. take cipro 500mg twice daily for 7 days; this is antibiotic. 2. take metronidazole 500mg three times daily for 7 days; this is antibiotic. Do NOT drink alcohol for the next 10 days as alcohol can interact with your antibiotics. 3. take probiotics (saccharomyces) once daily for 10 days. This may help prevent diarrhea. 4. HOLD your plavix today; resume it TOMORROW on 09/26/19. 5. LOW fiber diet for the next 10 days. High fiber foods include certain cereals, excessive fruits/veggies, beans, etc. Follow-up -- see separate section Return to [facility] if -- * you have fevers over 100.5 degrees * you see bright red blood in your stools again (for the next 1-2 days you may see old, maroon-colored, dark stool but you should NOT see bright red blood) * you have recurrent abdominal pain or vomiting * you have severe diarrhea * any other concerns Pending Studies at Discharge: No Stand-Alone Forms: My [facility], Smoking Cessation Medications and DC Order Prescriptions: New metronidazole 500 mg Tablet 500 mg PO TID 7 Days Qty: 21 RF: 0 ciprofloxacin HCl 500 mg Tablet 500 mg PO BID 7 Days Qty: 14 RF: 0 Saccharomyces boulardii 250 mg capsule 250 mg PO DAILY 10 Days Qty: 10 RF: 0 Continued testosterone [AndroGel] 20.25 mg/1.25 gram (1.62 %) gel in metered-dose pump 2 pump transdermal DAILY Qty: 3 RF: 0 nitroglycerin [Nitrostat] 0.4 mg tablet, sublingual 0.4 mg SL Q5M PRN (Reason: Chest Pain) RF: 0 Vitron-C 65 mg iron- 125 mg tablet,delayed release (DR/EC) 1 tab PO 3XWK RF: 0 albuterol sulfate 90 mcg/actuation aerosol powdr breath activated 90 mcg INH Q6H PRN (Reason: shortness of breath or wheezing) Qty: 1 RF: 2 furosemide 40 mg Tablet 40 mg PO Q2D RF: 0 atorvastatin 80 mg Tablet 80 mg PO PM RF: 0 amlodipine 2.5 mg Tablet 2.5 mg PO DAILY RF: 0 clopidogrel [Plavix] 75 mg Tablet 75 mg PO DAILY RF: 0 omeprazole 20 mg Capsule,Delayed Release(Dr/Ec) 40 mg PO BID RF: 0 aspirin 81 mg Tablet,Chewable 81 mg PO DAILY RF: 0 folic acid 1 mg Tablet 1 mg PO QAM RF: 0 metoprolol succinate 25 mg Tablet Extended Release 24 Hr 25 mg PO QAM RF: 0 zolpidem 5 mg tablet 5 - 10 mg PO HS PRN (Reason: Sleep) RF: 0 cholecalciferol (vitamin D3) 2,000 unit Tablet 2,000 unit PO DAILY RF: 0 isosorbide mononitrate 60 mg tablet extended release 24 hr 60 mg PO DAILY RF: 0 Trelegy Ellipta 100-62.5-25 mcg blister with device 1 inh inhalation DAILY RF: 0 No Action Entresto 24-26 mg tablet 1 tab PO BID RF: 0 Discharge Orders: Discharge Order (Routine); Ordered 09/25/19 Ordered By: Harinder Morrison/Other Patient Handouts: Colitis Ischemic Admission Data Admit Date/Time: 09/23/19 01:12 Attending Provider: Harinder Kelly Admit Provider: Evan Kenney Primary Care Provider: Quirino Hensley Other Providers: Kirill Storm ; Evan Kenney Other Interventions: Discharge Summary Assessment (RN) Last Done: 09/25/19 13:38 DC Date/Time DO NOT enter until pt leaves facility: 09/25/19 14:28 Supervising Physician Co-Signing Physician Notes I personally evaluated the patient and agree with the findings as documented by ADRY Miranda Exam: abd: soft, nt, nd
== END 2019-09-25 14:28 | disposition home or self-care (01) | DRG 394 ==
LOC: ED 20:33 → SUATTDRO 09-23 01:12 → 2E 09-23 01:12 → 4W 09-24 16:48

== ENCOUNTER 2019-10-22 14:27 | Inpatient (IN) ==
--- NOTE | 2019-10-22 14:58 | Emergency Department Note ---
Entered by Carline Portillo acting as a scribe for History of Present Illness General Chief complaint: Shortness of Breath/Dyspnea Stated complaint: SOB, COUGH Time Seen by Provider: 10/22/19 14:38 History of Present Illness Provider complaint: shortness of breath Onset (ago): day(s) 4 Pain Consistency: + intermittent Maximum Pain Intensity: 0 Quality: + other (shortness of breath) Exacerbated By: + other (exertion) Associated symptoms: + denies other symptoms (pain or swelling in legs), + cough (dry, 1 week, worsening) and + other (started when packing bags, comes back every time he minimally exerts himself, ) The patient is a 74 year old male who presents to the ED with complaints of intermittent shortness of breath that started 4 days ago. The patient states that he was in [place] packing his bags before travelling home when the shortness of breath began. The patient notes that ever since this incident, he has gotten short of breath every time he minimally exerts himself. The patient notes that he drove in a car to and from [place]. The patient states that he has also had a dry, nonproductive cough that started 1 week ago that has gotten progressively worse. The patient denies pain or swelling in his legs. Home Medications Home Medications Medication Instructions Recorded Confirmed Type amlodipine 2.5 mg PO DAILY 11/13/18 10/22/19 History aspirin 81 mg PO DAILY 11/13/18 10/22/19 History atorvastatin 80 mg PO PM 11/13/18 10/22/19 History clopidogrel [Plavix] 75 mg PO DAILY 11/13/18 10/22/19 History folic acid 1 mg PO QAM 11/13/18 10/22/19 History furosemide 40 mg PO Q2D 11/13/18 10/22/19 History metoprolol succinate 25 mg PO QAM 11/13/18 10/22/19 History omeprazole 40 mg PO BID 11/13/18 10/22/19 History albuterol sulfate 90 mcg/actuation 90 mcg INH Q6H PRN #1 ea 08/29/19 10/22/19 Rx breath activated powder inhaler iron,carbonyl 65 mg-vitamin C 125 1 tab PO 3XWK 08/29/19 10/22/19 History mg tablet,delayed release nitroglycerin 0.4 mg sublingual 0.4 mg SL Q5M PRN 08/29/19 10/22/19 History tablet testosterone 20.25 mg/1.25 gram 2 pump TRANSDERMAL DAILY #3 btl 09/11/19 10/22/19 Rx (1.62 %) transdermal gel pump Trelegy Ellipta 1 inh INHALATION DAILY 09/22/19 10/22/19 History cholecalciferol (vitamin D3) 2,000 unit PO DAILY 09/22/19 10/22/19 History isosorbide mononitrate 60 mg PO DAILY 09/22/19 10/22/19 History sacubitril 24 mg-valsartan 26 mg 1 tab PO BID tab 09/26/19 10/22/19 History tablet zolpidem 5 mg tablet 5 - 10 mg PO HS PRN 90 Days #180 10/21/19 10/22/19 Rx tab Allergies Allergy/AdvReac Type Severity Reaction Status Date / Time amoxicillin Allergy Mild RASH/ITCHIN Verified 10/22/19 15:32 G lactose AdvReac Intermediate GI SYMPTOMS Verified 10/22/19 15:32 benzalkonium chloride AdvReac Mild ITCHING/SWE Verified 10/22/19 15:32 LLING/RASH gluten AdvReac Unknown gluten Verified 10/22/19 15:32 intolerant per EGD Past Med/Surg History Medical History (Updated 10/22/19 @ 15:55 by Carline Portillo) Arthritis Diabetes GERD (gastroesophageal reflux disease) Hyperlipidemia Hypertension ICD (implantable cardioverter-defibrillator) in place medtronic [address] Newberry Ischemic colitis Migraine Myocardial Infarction most recent 2013, adjust med and icd inserted Pituitary adenoma removal of adenoma from pituitary 2016 Ventricular tachycardia Surgical History (Updated 09/26/19 @ 00:04 by Drea Joseph) History of abdominal aortic aneurysm (AAA) repair 2007 History of total hip arthroplasty right and left Hx of ghjjp-sgxus-lafyhui bypass right and left leg Social History Preferred Language: Gabonese Communication Ability: Effective Cab Station Attendant Required: No Beliefs That Will Affect Care: None Current Living Situation: Alone Feels Safe at Home: Yes Smoking Status: Never smoker Age Started Using Tobacco: 19 ; Age Quit Using Tobacco: 61 ; packs per day: 1.5 ; Number of Years Since Quit: 13 ; Second Hand Exposure: No ; Hx Alcohol Use: Yes Alcohol type: hard liquor Hx Substance Use: No Review of Systems See HPI for pertinent positives & negatives. and A total of 10 systems reviewed and were otherwise negative Physical Exam Vital Signs Vital Signs - 24 hr 10/22/19 14:29 10/22/19 14:41 10/22/19 14:43 Temperature 36.4 C L Temperature Source Oral Pulse Rate 114 H 98 H Pulse Rate from SpO2 Sensor 91 H Respiratory Rate 20 26 H Blood Pressure 125/100 112/83 Blood Pressure Mean 108 87 Pulse Oximetry 92 92 92 Oxygen Delivery Method Room Air Room Air Room Air Oxygen Flow Rate Sepsis Recent Fever Within 48 Hours No Sepsis New/Unexplained Change in Mental Status No Sepsis Action Taken by Nursing No Action Required 10/22/19 14:44 10/22/19 15:10 10/22/19 15:12 Temperature Temperature Source Pulse Rate 112 H 98 H Pulse Rate from SpO2 Sensor 88 89 Respiratory Rate 21 26 H Blood Pressure 69/55 L Blood Pressure Mean 61 Pulse Oximetry 92 86 L 88 L Oxygen Delivery Method Oxygen Flow Rate Sepsis Recent Fever Within 48 Hours Sepsis New/Unexplained Change in Mental Status Sepsis Action Taken by Nursing 10/22/19 15:14 10/22/19 15:15 10/22/19 15:16 Temperature Temperature Source Pulse Rate 116 H 122 H 116 H Pulse Rate from SpO2 Sensor 104 H 113 H 111 H Respiratory Rate 30 H 26 H 26 H Blood Pressure 95/72 L 92/70 L Blood Pressure Mean 77 72 Pulse Oximetry 90 94 92 Oxygen Delivery Method Nasal Cannula Oxygen Flow Rate 2 Sepsis Recent Fever Within 48 Hours Sepsis New/Unexplained Change in Mental Status Sepsis Action Taken by Nursing 10/22/19 15:18 10/22/19 15:30 10/22/19 15:31 Temperature Temperature Source Pulse Rate 106 H 95 H 95 H Pulse Rate from SpO2 Sensor 95 H 102 H Respiratory Rate 24 22 19 Blood Pressure 95/71 L 92/66 L Blood Pressure Mean 73 76 Pulse Oximetry 92 96 Oxygen Delivery Method Oxygen Flow Rate Sepsis Recent Fever Within 48 Hours Sepsis New/Unexplained Change in Mental Status Sepsis Action Taken by Nursing 10/22/19 15:45 10/22/19 16:00 10/22/19 16:01 Temperature Temperature Source Pulse Rate 114 H 102 H 84 Pulse Rate from SpO2 Sensor 109 H 103 H 90 Respiratory Rate 27 H 26 H 25 H Blood Pressure 98/67 L 108/71 Blood Pressure Mean 74 88 Pulse Oximetry 93 94 93 Oxygen Delivery Method Nasal Cannula Nasal Cannula Nasal Cannula Oxygen Flow Rate 2 2 2 Sepsis Recent Fever Within 48 Hours Sepsis New/Unexplained Change in Mental Status Sepsis Action Taken by Nursing CONSTITUTIONAL/VITAL SIGNS: Reviewed / noted above. GENERAL: Non-toxic in appearance. INTEGUMENTARY: Warm, dry, and [place]. HEAD: Normocephalic. EYES: without scleral icterus or trauma. ENT/OROPHARYNX: clear and moist. LYMPHADENOPATHY/NECK: Is supple without lymphadenopathy or meningismus. RESPIRATORY: Lungs clear and equal. CARDIOVASCULAR: Slightly irregular heart rate. GI/ABDOMEN: Soft and nontender. No organomegaly or pulsatile mass. No rebound or guarding. Normal bowel sounds. EXTREMITIES: Warm and well perfused. BACK: No CVA tenderness. NEUROLOGICAL: Intact without focal deficits. PSYCHIATRIC: normal affect. MUSCULOSKELETAL: Normally developed with good muscle tone. Course Course 1445: Past medical records reviewed. The patient was evaluated in room A09B. A complete history and physical exam was performed. 1536: I discussed the patient's case with Dr. Maldonado [facility]. He will evaluate the patient for further management. Consultations Consultation #1: I discussed the patient's case with Dr. Maldonado [facility]. He will evaluate the patient for further management. Time: 15:36 Administered Medications Ioversol (Optiray 320 125ml) 119 ml IV ONCE PRN PRN Reason: Interaction Checking Stop: 10/26/19 15:09 Last Admin: 10/22/19 15:11 Dose: 1 ml Documented by: [id number] Discontinued Medications Aspirin (Aspirin) 324 mg PO NOW STA Stop: 10/22/19 15:34 Last Admin: 10/22/19 15:39 Dose: 324 mg Documented by: [id number] Medical Decision Making Differential Diagnosis Differential diagnosis: Etiologies such as shingles, musculoskeletal pain, pericarditis, myocarditis, cardiac ischemia, pericardial tamponade, pneumonia, pneumothorax, pleural effusion, hemothorax, pleurisy, aortic pathology, pulmonary embolism, intra- abdominal process, as well as others were considered. Medical Records Attestation: I reviewed the patient's medical records. Home Medications Current Medication List: was personally reviewed by me Laboratory Data Lab Results 10/22/19 10/22/19 Range/Units 14:40 14:40 PT 15.1 H (9.0-12.0) Seconds INR 1.5 H (0.9-1.1) APTT 27.1 (21.0-31.0) Seconds PTT Ratio 1.0 Troponin I 0.546 H* (0-0.045) ng/ml Imaging Data Radiologist's Impression: Radiology results as stated below per my review and the radiologist's interpretation: CT ANGIOGRAPHY OF THE CHEST, PULMONARY EMBOLUS PROTOCOL CLINICAL HISTORY: Chest pain. Evaluate for pulmonary embolus. COMPARISON STUDY: Chest CT August 04, 2019 18. Chest radiograph October 22, 2019. TECHNIQUE: Following IV administration of 119 mL of Optiray-320, helical axial images of the chest were obtained utilizing the pulmonary embolus protocol. Maximal intensity projections and sagittal and coronal reformats were viewed on an independent 3D workstation. IV contrast was administered without complication. Automated exposure control was utilized for the study. A dose lowering technique was utilized adhering to the principles of ALARA. CT DOSE: 423.39 mGy.cm FINDINGS: No central or lobar pulmonary emboli are identified. The segmental and subsegmental pulmonary arteries within the lower lobes are suboptimally assessed due to respiratory motion. A left subclavian pacer is in place. There is moderate cardiomegaly and extensive coronary artery calcification. There is no pericardial effusion. There are small bilateral pleural effusions which are developed since CT of August 14, 2019. There is possible mild pulmonary edema. Severe upper lobe predominant emphysema is present. There is no consolidation to suggest pneumonia. Mild ground glass opacities favor atelectasis. A suspected cyst within the upper pole the right kidney is noted. Bony thorax is unremarkable. IMPRESSION: 1. No pulmonary emboli identified although segmental and subsegmental pulmonary arteries within the lower lobes suboptimally assessed due to respiratory motion. 2. Small bilateral pleural effusions. Possible mild pulmonary edema. 3. Severe emphysema. 4. Moderate cardiomegaly and extensive coronary artery calcification. Electronically signed by: Harjeet Merlos M.D. 10/22/2019 3:21 PM ECG Data Attestation: I personally reviewed and interpreted this ECG as follows: Indication: + SOB/dyspnea Rate (beats per minute): 115 Rhythm: + atrial flutter ECG ST segments: no ST elevation ECG Findings: + PVCs and + Other (variable conduction) Blood Pressure Blood Pressure Findings: Elevated blood pressure Blood Pressure Disposition: further management by hospitalist MDM Narrative This is a 74-year-old male who presents to the ED with a chief complaint of shortness of breath with minimal exertion. The patient states that he has had a slight cough for about a week or so. He states that over the past 4 to 5 days it seems to have increased. It is a dry nonproductive cough. He states that he recently traveled to and from [place] by car. He does have history of an ICD/pacemaker as well as COPD. The patient had outpatient studies that revealed an elevated d-dimer of 2020 and a BNP of 6539. The patient was sent here for further evaluation. His twelve-lead EKG here reveals atrial flutter with variable conduction at a rate of 115. There are occasional PVCs. His physical exam other than the irregular heart rate was unremarkable. He is in no distress. His lungs are mostly clear. His CBC was unremarkable earlier today. His hemoglobin was 13. PRP was unremarkable as well. Troponin is elevated at 0.546. The patient was given IV heparin as well as aspirin p.o. He will be seen by the hospitalist for further inpatient evaluation and care. The patient did have a brief episode of hypoxia after he came back from CT scan. His oxygen saturation dropped to 86% and his blood pressure dropped to the 90s. He did respond adequately with nasal cannula oxygen at 2 or 3 L. Impression & Plan Non-ST elevation MO (NSTEMI), Unstable angina Discharge Plan Visit Data Chief Complaint: Shortness of Breath/Dyspnea Stated Complaint: SOB, COUGH ED Provider: Pollo Alvarez Discharge Problem: Non-ST elevation MO (NSTEMI), Unstable angina Patient Disposition: Being Evaluated by Hospitalist Forms Stand Alone Forms: My [facility] Prescriptions Prescriptions: No Action testosterone [AndroGel] 20.25 mg/1.25 gram (1.62 %) gel in metered-dose pump 2 pump transdermal DAILY Qty: 3 RF: 0 zolpidem 5 mg tablet 5 - 10 mg PO HS PRN (Reason: Sleep) 90 Days Qty: 180 RF: 0 nitroglycerin [Nitrostat] 0.4 mg tablet, sublingual 0.4 mg SL Q5M PRN (Reason: Chest Pain) RF: 0 Vitron-C 65 mg iron- 125 mg tablet,delayed release (DR/EC) 1 tab PO 3XWK RF: 0 albuterol sulfate 90 mcg/actuation aerosol powdr breath activated 90 mcg INH Q6H PRN (Reason: shortness of breath or wheezing) Qty: 1 RF: 2 Entresto 24-26 mg tablet 1 tab PO BID RF: 0 furosemide 40 mg Tablet 40 mg PO Q2D RF: 0 atorvastatin 80 mg Tablet 80 mg PO PM RF: 0 amlodipine 2.5 mg Tablet 2.5 mg PO DAILY RF: 0 clopidogrel [Plavix] 75 mg Tablet 75 mg PO DAILY RF: 0 omeprazole 20 mg Capsule,Delayed Release(Dr/Ec) 40 mg PO BID RF: 0 aspirin 81 mg Tablet,Chewable 81 mg PO DAILY RF: 0 folic acid 1 mg Tablet 1 mg PO QAM RF: 0 metoprolol succinate 25 mg Tablet Extended Release 24 Hr 25 mg PO QAM RF: 0 cholecalciferol (vitamin D3) 2,000 unit Tablet 2,000 unit PO DAILY RF: 0 isosorbide mononitrate 60 mg tablet extended release 24 hr 60 mg PO DAILY RF: 0 Trelegy Ellipta 100-62.5-25 mcg blister with device 1 inh inhalation DAILY RF: 0 Referrals Referrals: Pro,Quirino Carranza MD [Primary Care Provider] - The scribe's documentation has been prepared under my direction and personally reviewed by me in its entirety. I confirm that the note above accurately reflects all work, treatment, procedures, and medical decision making performed by me.
[2019-10-22] MEDS ORDERED: OPTIRAY 320 125ml IV PRN (15:10)
--- NOTE | 2019-10-22 15:22 | CT Scan Report ---
CT ANGIOGRAPHY OF THE CHEST, PULMONARY EMBOLUS PROTOCOL CLINICAL HISTORY: Chest pain. Evaluate for pulmonary embolus. COMPARISON STUDY: Chest CT August 04, 2019 18. Chest radiograph October 22, 2019. TECHNIQUE: Following IV administration of 119 mL of Optiray-320, helical axial images of the chest we re obtained utilizing the pulmonary embolus protocol. Maximal intensity projections and sagittal and coronal reformats were viewed on an independent 3D workstation. IV contrast was administered withou t complication. Automated exposure control was utilized for the study. A dose lowering technique wa s utilized adhering to the principles of ALARA. CT DOSE: 423.39 mGy.cm FINDINGS: No central or lobar pulmonary emboli are identified. The segmental and subsegmental pulmon tamar arteries within the lower lobes are suboptimally assessed due to respiratory motion. A left subcl lamin pacer is in place. There is moderate cardiomegaly and extensive coronary artery calcification. There is no pericardial effusion. There are small bilateral pleural effusions which are developed sin ce CT of August 14, 2019. There is possible mild pulmonary edema. Severe upper lobe predominant em physema is present. There is no consolidation to suggest pneumonia. Mild ground glass opacities favor atelectasis. A suspected cyst within the upper pole the right kidney is noted. Bony thorax is unrema rkable. IMPRESSION: 1. No pulmonary emboli identified although segmental and subsegmental pulmonary arteries within the l ower lobes suboptimally assessed due to respiratory motion. 2. Small bilateral pleural effusions. Possible mild pulmonary edema. 3. Severe emphysema. 4. Moderate cardiomegaly and extensive coronary artery calcification. Electronically signed by: Harjeet Merlos M.D. 10/22/2019 3:21 PM
[2019-10-22] MEDS ORDERED: ASPIRIN CHEW 324 MG PO STA (15:33)
[2019-10-22 15:49] LABS: INR 1.5 (0.9-1.1); Partial Thromboplastin Time 27.1 Seconds (21.0-31.0); Prothrombin Time 15.1 Seconds (9.0-12.0)
[2019-10-22] MEDS ORDERED: Heparin BOLUS **ED Use Only IV STA (16:01)
[2019-10-22] MEDS: HEPARIN SODIUM/DEXTROSE 25,000 UNITS/500 ML BAG IV SCH (16:11)
--- NOTE | 2019-10-22 17:52 | History & Physical Report ---
Date of Service October 22, 2019 Assessment & Plan (1) Dyspnea: This appears most likely related to his emphysema and a bit of a flareup, probably infectious in nature. Given his rather severe ischemic cardiomyopathy and mild troponin elevation, as well as questionable rhythm, cardiac causes of his dyspnea seem less likely but certainly warrant evaluationsee below (2) Emphysema of lung: His symptoms and exam and lack of other striking findings make his dyspnea most consistent with a flareup of his emphysema. According to PFTs he does not truly have COPD, but certainly has rather significant emphysema and an infection would easily make his dyspnea worse, but likely would account for why his vitals are overall so stable. We will treat in accordance with typical treatment for a COPD exacerbation with Zithromax to cover for atypicals/have a pulmonary anti- inflammatory effect, as well as steroids and nebulizers, continue to follow closely. (3) Elevated troponin: Given his diffuse and severe coronary disease, I suspect that his elevated troponin is really more of a demand ischemia "failed stress test" related to the physiologic stress of his emphysema flareup. His EKG does not show any striking findings concerning for acute ischemia, nor does he have any symptoms in spite of having had a long track record of heart symptoms to follow. In this respect the ER has initiated on a heparin drip, simply because he is so high risk for having any type of a cardiac event we will continue the drip until we trend troponins further, but I suspect they will stay in a mild elevation range like they currently are. Certainly if things worsen we will consult cardiology, but otherwise a suspect this is just a mild demand ischemia. (4) Abnormal heart rhythm: Little bit hard to tell exactly what his rhythm is, the rate is overall controlled, certainly he does have risk for A. fib or a flutter but is not clear that that is what is going on. Certainly if he had RVR from either of the above that could also explain his dyspnea, and in this respect we will put him on cardiac monitor technician to follow his rhythms moving forward and hopefully build to interpret things more easily, as well as ask for his device to be interrogated to especially see what his rates and rhythms have been over the last week as he is been feeling sicker. (5) Ischemic cardiomyopathy: Is a severe baseline ischemic cardiomyopathy along with HFrEF. Overall his symptoms and findings are most consistent with a flareup of his emphysema, a lthough certainly any degree of overlying pulmonary edema could be a culprit as well. Truly does not appear to be decompensated heart failure at this time, so we will follow with serial exams and to continue his home medications. (6) Hypertension: Continue home meds (7) Hyperlipidemia: Continue home meds (8) GERD (gastroesophageal reflux disease): No symptoms of this, nor symptoms of his recent bout of ischemic colitis. Continue his PPI (9) DVT prophylaxis: Heparin drip overnight as above, depending on the status of his troponins, if the heparin drip is able to be stopped tomorrow then we will change to subcu DVT prophylaxis (10) Discharge planning issues: He will be admitted to [facility] on the telemetry floor, he is a full code. I anticipate him being able to be discharged home once he is improving History of Present Illness Chief Complaint: Shortness of breath Primary Care Provider: Quirino Hensley MD Patient is a very pleasant 74-year-old male who notes that over the last not quite week he said significant worsening of shortness of breath. He notes that over the last 3 or 4 weeks has had a little bit of a cough but he really did not make much of it it was just a tickle in his throat here there. He was very active during that time playing golf and exercising. He had no significant dyspnea on exertion during that time. Just a little bit of an annoying cough. On Sunday he then noticed that the cough was getting significantly worse, still dry nonproductive, but much more consistent. He also was starting to note a lot more dyspnea on exertion during that time. He did not have any orthopnea, but did note simply rolling over in bed was difficult and he felt more short of breath laying on his sides then on his back, but again to clarify was able to lay completely flat with no problems and had no orthopnea or paroxysmal nocturnal dyspnea. He has not felt constitutional symptoms such as fevers chills sweats or body aches, other than occasional chill but he notes that he gets this from time to time normally. He denies any chest pain pressure or other symptoms reminiscent of his prior cardiac symptoms. He mostly feels like he is just sick with something related to his emphysema. He has not had any significant swelling, he has had some weight gain, but he notes that this is as he is recovering from the episode of ischemic colitis he had about a month ago. In that respect he is not having any GI symptoms, and he is eating and drinking well now. Allergies Allergy/AdvReac Type Severity Reaction Status Date / Time amoxicillin Allergy Mild RASH/ITCHIN Verified 10/22/19 15:32 G lactose AdvReac Intermediate GI SYMPTOMS Verified 10/22/19 15:32 benzalkonium chloride AdvReac Mild ITCHING/SWE Verified 10/22/19 15:32 LLING/RASH gluten AdvReac Unknown gluten Verified 10/22/19 15:32 intolerant per EGD Home Medications Home Medications Medication Instructions Recorded Confirmed Type amlodipine 2.5 mg PO DAILY 11/13/18 10/22/19 History aspirin 81 mg PO DAILY 11/13/18 10/22/19 History atorvastatin 80 mg PO PM 11/13/18 10/22/19 History clopidogrel [Plavix] 75 mg PO DAILY 11/13/18 10/22/19 History folic acid 1 mg PO QAM 11/13/18 10/22/19 History furosemide 40 mg PO Q2D 11/13/18 10/22/19 History metoprolol succinate 25 mg PO QAM 11/13/18 10/22/19 History omeprazole 40 mg PO BID 11/13/18 10/22/19 History albuterol sulfate 90 mcg/actuation 90 mcg INH Q6H PRN #1 ea 08/29/19 10/22/19 Rx breath activated powder inhaler iron,carbonyl 65 mg-vitamin C 125 1 tab PO 3XWK 08/29/19 10/22/19 History mg tablet,delayed release nitroglycerin 0.4 mg sublingual 0.4 mg SL Q5M PRN 08/29/19 10/22/19 History tablet testosterone 20.25 mg/1.25 gram 2 pump TRANSDERMAL DAILY #3 btl 09/11/19 10/22/19 Rx (1.62 %) transdermal gel pump Trelegy Ellipta 1 inh INHALATION DAILY 09/22/19 10/22/19 History cholecalciferol (vitamin D3) 2,000 unit PO DAILY 09/22/19 10/22/19 History isosorbide mononitrate 60 mg PO DAILY 09/22/19 10/22/19 History sacubitril 24 mg-valsartan 26 mg 1 tab PO BID tab 09/26/19 10/22/19 History tablet zolpidem 5 mg tablet 5 - 10 mg PO HS PRN 90 Days #180 10/21/19 10/22/19 Rx tab Past Med/Surg History Medical History Arthritis Diabetes Emphysema of lung GERD (gastroesophageal reflux disease) Hyperlipidemia Hypertension ICD (implantable cardioverter-defibrillator) in place medtronic [address] 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 HEENT normocephalic atraumatic mucous membranes are moist, neck with full range of motion. Cardio somewhat distant difficult to really discern rubs murmurs or gallops, on monitor his rates range from about 100 -115 rhythm somewhat difficult to discern but appears to may be be A. fib. Lungs are markedly diminished throughout, I do hear the faintest of an inspiratory squeaking sound in the right upper and left lower lung field but mostly his lung exam is remarkable for help quiet his air entry is. There is no other rales rhonchi or wheezes, he shows good effort, no accessory muscle use. His abdomen is soft nondistended nontender no masses organomegaly. Extremities show no cyanosis clubbing or edema, no calf tenderness. Musculoskeletal exam shows his intercostals to be somewhat tight with decreased range of motiongentle balanced ligamentous tension was done with a small improvement in tissue texture. Patient tolerated this well. Neuro showed no focal deficits, cranial nerves II through XII are grossly intact gross motor and sensory are intact. Mental status shows good recent and remote recall normal mood and affect good judgment and insight. Skin shows no rashes, no pallor or icterus. Results & Data Vital Signs (Past 12 Hours) Vital Signs Temp Pulse Resp BP Pulse Ox 10/22/19 17:01 97 H 29 H 10/22/19 17:00 102 H 29 H 103/82 93 10/22/19 16:30 122 H 29 H 94 10/22/19 16:01 84 25 H 93 10/22/19 16:00 102 H 26 H 108/71 94 10/22/19 15:45 114 H 27 H 98/67 L 93 10/22/19 15:31 95 H 19 96 10/22/19 15:30 95 H 22 92/66 L 92 10/22/19 15:18 106 H 24 95/71 L 10/22/19 15:16 116 H 26 H 92/70 L 92 10/22/19 15:15 122 H 26 H 94 10/22/19 15:14 116 H 30 H 95/72 L 90 10/22/19 15:12 98 H 26 H 69/55 L 88 L 10/22/19 15:10 112 H 21 86 L 10/22/19 14:44 92 10/22/19 14:43 92 10/22/19 14:41 98 H 26 H 112/83 92 10/22/19 14:29 97.5 F L 114 H 20 125/100 92 labs, CT, x-ray, EKG noted. EKG seems to be sinus with frequent ectopy but cannot really definitively rule out A. fib, as noted above on monitor seems to be A. fib but not entirely clear. CT without PEs, question faint pulmonary edema, noted remarkable emphysema of the upper lobes, no infiltrates, small bibasilar effusions. Code Status & VTE Plan VTE Prophylaxis Plan VTE Prophylaxis will be ordered: Yes PG Care Time/CCT Total # of Minutes Spent Total Time Spent with Patient: Total time spent is greater than 50% in coordination of care (as documented) at patient's floor/unit and/or counseling patient: (1) Hypertension Hypertension type: essential hypertension Qualified Code(s): I10 - Essential (primary) hypertension (2) Hyperlipidemia Hyperlipidemia type: unspecified Qualified Code(s): E78.5 - Hyperlipidemia, unspecified
[2019-10-22] MEDS ORDERED: ZOLPIDEM TARTRATE 5 MG TAB PO PRN (18:40)
[2019-10-22] MEDS ORDERED: ACETAMINOPHEN 325 MG TAB PO PRN (18:40)
[2019-10-22] MEDS ORDERED: NON-FORMULARY MEDICATION (Iron,Carbonyl-Vitamin C [Vitron-C] 1 TAB) PO SCH (18:40)
[2019-10-22] MEDS ORDERED: POLYETHYLENE (MIRALAX) 17 GM PACK PO PRN (18:40)
[2019-10-22] MEDS ORDERED: ALUMINUM/MAGNESIUM SUSP 30 ML UDC PO PRN (18:40)
[2019-10-22] MEDS ORDERED: NITROGLYCERIN SL 0.4 MG/TAB TAB SL PRN ×2 (18:40)
[2019-10-22] MEDS ORDERED: MAGNESIUM HYDROXIDE SUSP 30 ML UDC PO PRN (18:40)
[2019-10-22] MEDS ORDERED: ONDANSETRON INJ 2 MG/ML 2 ML VIAL IV PRN (18:40)
[2019-10-22] MEDS ORDERED: AZITHROMYCIN 250 MG TAB PO STA (18:59)
[2019-10-22] MEDS ORDERED: ALBUTEROL HFA 8 GM INHALER INH PRN (19:00)
[2019-10-22] MEDS: ALBUT/IPRATROP 3MG/0.5MG NEB 3 ML VIAL NEB SCH (19:55)
[2019-10-22] MEDS: methylPREDNISolone 60 MG in SYRINGE 0 ML IV SCH (21:05)
[2019-10-22] MEDS: ATORVASTATIN 40 MG TAB PO SCH (21:05)
[2019-10-22] MEDS: SACUBITRIL-VALSARTAN 24-26 MG TAB PO SCH (21:05)
[2019-10-22] MEDS: PANTOprazole 40 MG TAB PO SCH (21:06)
[2019-10-22] MEDS ORDERED: methylPREDNISolone 125 MG/2 ML VIAL IV SCH (22:00)
[2019-10-22 22:54] LABS: Partial Thromboplastin Ratio 2.8
[2019-10-22 23:03] LABS: Partial Thromboplastin Time 75.1 Seconds (21.0-31.0)
[2019-10-23] MEDS: methylPREDNISolone 60 MG in SYRINGE 0 ML IV SCH ×2 (03:45→10:52)
[2019-10-23 06:16] LABS: Hemoglobin 12.1 g/dL (14.0-18.0); Immature Granulocytes # (auto) 0.01 K/uL (0.00-0.02); Immature Granulocytes % (auto) 0.2 %; Lymphocytes # (auto) 0.34 K/uL (1.2-3.4); Lymphocytes % (auto) 6.9 %; Mean Corpuscular Hemoglobin 29.6 pg (25-34); Mean Corpuscular Hgb Conc 33.6 g/dL (32-36); Mean Platelet Volume 11.2 fL (7.4-10.4); Monocytes # (auto) 0.07 K/uL (0.11-0.59); Monocytes % (auto) 1.4 %; Neutrophils # (auto) 4.53 K/uL (1.4-6.5); Neutrophils % (auto) 91.5 %; Platelet Count 103 K/uL (130-400); RDW Coefficient of Variation 16.6 % (11.5-14.5); RDW Standard Deviation 53.4 fL (36.4-46.3); Red Blood Count 4.09 M/uL (4.7-6.1); White Blood Count 4.95 K/uL (4.8-10.8)
[2019-10-23 06:43] LABS: Partial Thromboplastin Ratio 2.2
[2019-10-23 06:45] LABS: Partial Thromboplastin Time 59.3 Seconds (21.0-31.0)
[2019-10-23] MEDS: ALBUT/IPRATROP 3MG/0.5MG NEB 3 ML VIAL NEB SCH ×4 (07:08→19:15)
[2019-10-23 07:13] LABS: Echinocytes 2+
[2019-10-23] MEDS ORDERED: POTASSIUM CHLORIDE 20 MEQ TABCR PO STA (07:48)
[2019-10-23] MEDS: PANTOprazole 40 MG TAB PO SCH ×2 (08:00→20:12)
[2019-10-23] MEDS: SACUBITRIL-VALSARTAN 24-26 MG TAB PO SCH ×2 (08:00→20:12)
[2019-10-23] MEDS: FLUTICASONE/UMECLIDIN/VILANTER INH SCH (08:00)
[2019-10-23] MEDS: ASPIRIN 81 MG CHEW PO SCH (08:01)
[2019-10-23] MEDS: FOLIC ACID 1 MG TAB PO SCH (08:01)
[2019-10-23] MEDS: ISOSORBIDE MONO EXTENDED REL 60 MG TABCR PO SCH (08:02)
[2019-10-23] MEDS: AZITHROMYCIN 250 MG TAB PO SCH (08:02)
[2019-10-23] MEDS: CLOPIDOGREL BISULFATE 75 MG TAB PO SCH (08:03)
[2019-10-23] MEDS: CHOLECALCIFEROL 1,000 UNITS TAB PO SCH (08:03)
[2019-10-23 08:15] LABS: BUN Creatinine Ratio 17.7 (10-20); Calcium 8.5 mg/dl (8.5-10.1); Creatinine Clr Calc Pharmacy 56.3 ml/min; Est GFR (African American) 74.3; Est GFR (Non-African American) 64.1; Potassium 3.6 mmol/L (3.5-5.1)
[2019-10-23] MEDS ORDERED: AMLODIPINE BESYLATE 5 MG TAB PO SCH (09:00)
[2019-10-23] MEDS ORDERED: FUROSEMIDE 40 MG TAB PO SCH (09:00)
[2019-10-23] MEDS ORDERED: NON-FORMULARY MEDICATION (Fluticasone-Umeclidin-Vilanter [Trelegy Ellipta] 1 PUFFS) INH SCH (09:00)
[2019-10-23] MEDS ORDERED: TESTOSTERONE PUMP TD SCH (09:00)
[2019-10-23] MEDS ORDERED: METOPROLOL SUCC 25MG EXT REL TAB PO SCH ×2 (09:00→21:00)
[2019-10-23] MEDS: HEPARIN SODIUM/DEXTROSE 25,000 UNITS/500 ML BAG IV SCH (10:53)
--- NOTE | 2019-10-23 15:19 | Hospitalist Progress Note ---
Date of Service October 23, 2019 Assessment & Plan (1) Dyspnea: 74yo with PMHx of emphysema, ischemic cardiomyopathy with EF of 30-39%, HTN, HLD, GERD, unstable angina and CAD s/p angipoplasty and ICD placement who presented with SOB on exertion. Dyspnea: -Pt presented with dyspnea on exertion -Likely secondary to an acute emphysematous exacerbation vs. cardiac cause -No current oxygen requirement -Significant improvement with IV steroids and azithromycin; continue (will transition to PO steroids in the AM) -continue PRN duonebs -continue incentive spirometry Emphysema -CT with evidence of apical pneumonia -No official dx of COPD -will treat as a COPD exacerbation though as above, with azithromycin and steroids; continue -continue PRN duonebs -continue home Trelegy Ellipta Abnormal heart rhythm (Atrial Fibrillation) -Pt observed on telemetry overnight; noted to be in atrial fibrillation -Currently not rate controlled; will increase metoprolol succ to 50mg QAM, d/c Norvasc given BP on lower end. -CHADS-Vasc >1(~4) will need anticoagulation; was on heparin on admission- will transition to Eliquis 5mg BID -Has ICD which was interrogated 10/22; will follow up on results. -will continue to monitor Elevated troponin -Pt with no chest pain but significant cardiac Hx -Troponins elevated at 0.5 and downtrended -EKG with abnormal rhythm but no new convincing MA -Likely secondary to heart strain given pt is also in atrial fibrillation (see above) Ischemic cardiomyopathy: -severe baseline ischemic cardiomyopathy along with HFrEF. -Does not appear to be in CHF exacerbation currently -continue home Entresto (sacubutril 24mg-valsartan 26mg) -continue home isosorbide 60mg CAD with Hx of MA -continue home plavix, aspirin Hypertension: -Continue metoprolol as above; -holding home Norvasc given BPs on softer side. Hyperlipidemia: -Continue home atorvastatin 80mg PO GERD: - Continue home omeprazole 40mg PO BID FEN/GI: Heart healthy, low sodium diet; On PPI DVT prophylaxis: Transitioned from heparin drip to Eliquis CODE STATUS: Full Supervising Physician Co-Signing Physician Notes I personally examined the patient and verified all reyez points of history and exam, discussed case, and agree with decision making with Dr Ojevwe. feeling better breathing better cough a little wrose but still nonproductive. extensive discussions on findings and plans thus far. pt expresses good understanding and all questions answered to the best of my ability Vitals noted, in general he is awake and alert pleasant no distress. HEENT normocephalic atraumatic mucous members moist. Breathing unlabored no accessory muscle use good effort. Cardiac rhythm is noted to be A. fib generally between 101 120 occasional bursts higher. Neuro shows no focal deficits Dyspneadifferential is been explored, it seems most likely that an emphysema flareup was the cause of his dyspnea. See below otherwise. Emphysema flareimproving nicely with management consistent with a COPD exacerbation, although he does not truly have COPD, which is probably why he is improving so quickly. Finish out 5-day course of Zithromax, transition steroids to p.o. and then taper. Doing well in this regard. New onset atrial fibrillationalmost certainly related to his underlying cardiomyopathy and chronic lung disease. He had a recent echo about a month ago, will check to ensure we have a recent TSH. Given his rates are fast enough, I did wonder if this could be part of his dyspnea on exertion, but given that his dyspnea has improved while his rates have not strongly suggest that the atrial fibrillation is an incidental finding. That said with his underlying coronary disease/cardiomyopathy it does not seem safe to allow him to run at the current range, and therefore we will increase his metoprolol for better rate control (stopping the amlodipine to "make room" for his blood pressure) and also certainly he warrants anticoagulationwe will transition from heparin to apixaban. Elevated troponinsimply appears to been supply demand mismatch from both of above, no evidence of MA. Otherwise as above. Subjective Mr. Alcala seen this AM. States his symptoms are much improved today. Has been up and walking around with very little SOB. Denies any headache, changes to vision, cough, runny nose, sore throat, dizziness, weakness, chest pain, palpitations, abdominal pain, diarrhea or constipation, swelling in hands or feet or numbness or tingling anywhere. Review of Systems Review of Systems: All systems reviewed & are unremarkable except as noted in HPI & below Physical Exam Physical Exam: General: Alert, oriented. No acute distress. Laying in bed. Skin: No noted rashes or bruises Psych: Appropriate mood and affect Neuro: No gross deficits HEENT: NC/AT Chest: Nontender to palpation. CV:Irregularly irregular rate and rhythm. No murmurs appreciated Resp: Breath sounds clear on top bilaterally with some fine crackles noted at the bases, no increased effort of breathing. Abdomen: Soft, nontender, nondistended. No guarding. No organomegaly appreciated. Extremities: No edema in lower extremities bilaterally. Results & Data Vital Signs (Past 12 Hours) Vital Signs Temp Pulse Pulse Resp BP BP Pulse Ox 10/23/19 15:09 112 H 18 96 10/23/19 14:44 103 H 10/23/19 11:08 102 H 18 93 10/23/19 10:58 36.7 C 98 H 18 93/67 L 93 10/23/19 07:56 105 H 18 117/93 92 10/23/19 07:08 111 H 18 96 10/23/19 07:06 101 H 18 88/62 L 96 10/23/19 03:43 36.9 C 88 18 96/69 L 94 Laboratory Results Laboratory Results - last 24 hr 10/22/19 10/22/19 10/22/19 14:40 14:40 22:17 WBC RBC Hgb Hct MCV MCH MCHC RDW Std Deviation RDW Coeff of Dena Plt Count MPV Immature Gran % (Auto) Neut % (Auto) Lymph % (Auto) Grant % (Auto) Eos % (Auto) Baso % (Auto) Immature Gran # (Auto) Neut # (Auto) Lymph # (Auto) Grant # (Auto) Eos # (Auto) Baso # (Auto) Echinocytes PT 15.1 H INR 1.5 H APTT 27.1 PTT Ratio 1.0 Sodium Potassium Chloride Carbon Dioxide Anion Gap BUN Creatinine Est Cr Clr Drug Dosing Est GFR ( Amer) Est GFR (Non-Af Amer) BUN/Creatinine Ratio Glucose Calcium Troponin I 0.546 H* 0.536 H* 10/22/19 10/23/19 10/23/19 22:17 06:04 06:04 WBC RBC Hgb Hct MCV MCH MCHC RDW Std Deviation RDW Coeff of Dena Plt Count MPV Immature Gran % (Auto) Neut % (Auto) Lymph % (Auto) Grant % (Auto) Eos % (Auto) Baso % (Auto) Immature Gran # (Auto) Neut # (Auto) Lymph # (Auto) Grant # (Auto) Eos # (Auto) Baso # (Auto) Echinocytes PT INR APTT 75.1 H* 59.3 H* PTT Ratio 2.8 2.2 Sodium Potassium Chloride Carbon Dioxide Anion Gap BUN Creatinine Est Cr Clr Drug Dosing Est GFR ( Amer) Est GFR (Non-Af Amer) BUN/Creatinine Ratio Glucose Calcium Troponin I 0.302 H* 10/23/19 10/23/19 06:04 06:04 WBC 4.95 RBC 4.09 L Hgb 12.1 L Hct 36.0 L MCV 88.0 MCH 29.6 MCHC 33.6 RDW Std Deviation 53.4 H RDW Coeff of Dena 16.6 H Plt Count 103 L MPV 11.2 H Immature Gran % (Auto) 0.2 Neut % (Auto) 91.5 Lymph % (Auto) 6.9 Grant % (Auto) 1.4 Eos % (Auto) 0.0 Baso % (Auto) 0.0 Immature Gran # (Auto) 0.01 Neut # (Auto) 4.53 Lymph # (Auto) 0.34 L Grant # (Auto) 0.07 L Eos # (Auto) 0.00 Baso # (Auto) 0.00 Echinocytes 2+ PT INR APTT PTT Ratio Sodium 140 Potassium 3.6 Chloride 109 H Carbon Dioxide 21 Anion Gap 10.0 BUN 20 H Creatinine 1.13 Est Cr Clr Drug Dosing 56.3 Est GFR ( Amer) 74.3 Est GFR (Non-Af Amer) 64.1 BUN/Creatinine Ratio 17.7 Glucose 167 H Calcium 8.5 Troponin I Medications Administered Home Medications amlodipine 2.5 mg PO DAILY 11/13/18 [History Confirmed 10/22/19] aspirin 81 mg PO DAILY 11/13/18 [History Confirmed 10/22/19] atorvastatin 80 mg PO PM 11/13/18 [History Confirmed 10/22/19] clopidogrel [Plavix] 75 mg PO DAILY 11/13/18 [History Confirmed 10/22/19] folic acid 1 mg PO QAM 11/13/18 [History Confirmed 10/22/19] furosemide 40 mg PO Q2D 11/13/18 [History Confirmed 10/22/19] metoprolol succinate 25 mg PO QAM 11/13/18 [History Confirmed 10/22/19] omeprazole 40 mg PO BID 11/13/18 [History Confirmed 10/22/19] albuterol sulfate 90 mcg/actuation breath activated powder inhaler 90 mcg INH Q6H PRN #1 ea 08/29/19 [Rx Confirmed 10/22/19] iron,carbonyl 65 mg-vitamin C 125 mg tablet,delayed release 1 tab PO 3XWK 08/29/19 [History Confirmed 10/22/19] nitroglycerin 0.4 mg sublingual tablet 0.4 mg SL Q5M PRN 08/29/19 [History Confirmed 10/22/19] testosterone 20.25 mg/1.25 gram (1.62 %) transdermal gel pump 2 pump TRANSDERMAL DAILY #3 btl 09/11/19 [Rx Confirmed 10/22/19] Trelegy Ellipta 1 inh INHALATION DAILY 09/22/19 [History Confirmed 10/22/19] cholecalciferol (vitamin D3) 2,000 unit PO DAILY 09/22/19 [History Confirmed 10/22/19] isosorbide mononitrate 60 mg PO DAILY 09/22/19 [History Confirmed 10/22/19] sacubitril 24 mg-valsartan 26 mg tablet 1 tab PO BID tab 09/26/19 [History Confirmed 10/22/19] zolpidem 5 mg tablet 5 - 10 mg PO HS PRN 90 Days #180 tab 10/21/19 [Rx Confirmed 10/22/19] Active Medications Acetaminophen (Tylenol) 650 mg PO Q4H PRN PRN Reason: Pain or Fever Stop: 11/21/19 18:39 Al Hydrox/Mg Hydrox/Simethicone (Maalox) 15 ml PO Q4H PRN PRN Reason: Dyspepsia Stop: 11/21/19 18:39 Albuterol (Ventolin Hfa) 1 puffs INH Q6H PRN PRN Reason: Shortness Of Breath Or Wheezing Stop: 11/21/19 18:59 Albuterol (Duoneb) 3 ml NEB QIDR [facility] Stop: 11/21/19 18:59 Last Admin: 10/23/19 15:09 Dose: 3 ml Documented by: Aspirin (Aspirin Chew) 81 mg PO DAILY [facility] Stop: 11/22/19 08:59 Last Admin: 10/23/19 08:01 Dose: 81 mg Documented by: Atorvastatin Calcium (Lipitor) 80 mg PO PM [facility] Stop: 11/21/19 20:59 Last Admin: 10/22/19 21:05 Dose: Not Given Documented by: Azithromycin (Zithromax) 250 mg PO QAM ALEJANDRA Stop: 10/30/19 08:59 Last Admin: 10/23/19 08:02 Dose: 250 mg Documented by: Clopidogrel Bisulfate (Plavix) 75 mg PO DAILY ALEJANDRA Stop: 11/22/19 08:59 Last Admin: 10/23/19 08:03 Dose: 75 mg Documented by: Fluticasone/Umeclidinium/Vilanterol (Trelegy Ellipta 100-62.5-25) 1 ea INH DAILY ALEJANDRA Stop: 11/22/19 08:59 Last Admin: 10/23/19 08:00 Dose: 1 ea Documented by: Folic Acid (Folvite) 1 mg PO QAM ALEJANDRA Stop: 11/22/19 08:59 Last Admin: 10/23/19 08:01 Dose: 1 mg Documented by: Furosemide (Lasix) 40 mg PO Q48H ALEJANDRA Stop: 11/22/19 08:59 Last Admin: 10/23/19 08:04 Dose: 40 mg Documented by: Heparin Sodium/Dextrose (Heparin Sodium/Dextrose) 25,000 units in 500 mls @ 24 mls/hr IV .[id number] [facility]; Protocol Stop: 11/21/19 15:44 Last Admin: 10/23/19 10:53 Dose: 1,200 units/hr, 24 mls/hr Documented by: Methylprednisolone 60 mg/ (Syringe) 0.96 mls @ 1.5 mls/min IV Q8H [facility] Stop: 11/21/19 19:14 Last Admin: 10/23/19 10:52 Dose: 1.5 mls/min Documented by: Isosorbide Mononitrate (Imdur Extended Rel) 60 mg PO DAILY ALEJANDRA Stop: 11/22/19 08:59 Last Admin: 10/23/19 08:02 Dose: 60 mg Documented by: Magnesium Hydroxide (Milk Of Magnesia) 30 ml PO Q12H PRN PRN Reason: Constipation Stop: 11/21/19 18:39 Metoprolol Succinate (Toprol Xl) 25 mg PO BID [facility] Stop: 11/22/19 20:59 Miscellaneous (Order Awaiting Action) 1 ea N/A QS ALEJANDRA Stop: 11/22/19 19:29 Nitroglycerin (Nitrostat) 0.4 mg SL Q5M PRN PRN Reason: Chest Pain Stop: 11/21/19 18:39 Ondansetron HCl (Zofran) 4 mg IV Q6H PRN PRN Reason: Nausea Stop: 11/21/19 18:39 Pantoprazole Sodium (Protonix) 40 mg PO BID ALEJANDRA Stop: 11/21/19 20:59 Last Admin: 10/23/19 08:00 Dose: 40 mg Documented by: Polyethylene Glycol (Miralax Powder Packet) 17 gm PO DAILY PRN PRN Reason: Constipation Stop: 11/21/19 18:39 Sacubitril/Valsartan (Entresto 24/26mg) 1 tab PO BID ALEJANDRA Stop: 11/21/19 20:59 Last Admin: 10/23/19 08:00 Dose: 1 tab Documented by: Vitamin D (Vitamin D3) 2,000 units PO DAILY ALEJANDRA Stop: 11/22/19 08:59 Last Admin: 10/23/19 08:03 Dose: 2,000 units Documented by: Zolpidem Tartrate (Ambien) 5 mg PO HS PRN PRN Reason: Sleep Stop: 11/21/19 18:39 Resident Activity Tracking Resident Involvement: Resident Care Provided Care Provided: Adult Hospital Medicine
--- NOTE | 2019-10-23 15:37 | Billing Data ---
Coding Level of Care Code 37827 Subseq Hosp Care Lvl 3
[2019-10-23] MEDS ORDERED: METOPROLOL TARTRATE 25 MG TAB PO ONE ×2 (15:45→21:00)
[2019-10-23] MEDS: TESTOSTERONE SCH (20:08)
[2019-10-23] MEDS: APIXABAN 5 MG TABLET PO SCH (20:11)
[2019-10-23] MEDS: ATORVASTATIN 40 MG TAB PO SCH (20:13)
[2019-10-24] MEDS: TESTOSTERONE SCH ×2 (02:08→09:01)
[2019-10-24 06:52] LABS: BUN Creatinine Ratio 25.3 (10-20); Calcium 8.3 mg/dl (8.5-10.1); Est GFR (African American) 69.1; Est GFR (Non-African American) 59.6; Potassium 3.3 mmol/L (3.5-5.1)
[2019-10-24] MEDS: ALBUT/IPRATROP 3MG/0.5MG NEB 3 ML VIAL NEB SCH ×2 (07:13→11:14)
[2019-10-24 08:12] LABS: Magnesium 1.5 mg/dl (1.8-2.4); Phosphorus 3.7 mg/dl (2.5-4.9)
[2019-10-24] MEDS ORDERED: POTASSIUM CHLORIDE 20 MEQ TABCR PO STA (08:15)
[2019-10-24] MEDS: APIXABAN 5 MG TABLET PO SCH (08:53)
[2019-10-24] MEDS: AZITHROMYCIN 250 MG TAB PO SCH (08:54)
[2019-10-24] MEDS: SACUBITRIL-VALSARTAN 24-26 MG TAB PO SCH (08:54)
[2019-10-24] MEDS: PANTOprazole 40 MG TAB PO SCH (08:54)
[2019-10-24] MEDS: ASPIRIN 81 MG CHEW PO SCH (08:54)
[2019-10-24] MEDS: FOLIC ACID 1 MG TAB PO SCH (08:54)
[2019-10-24] MEDS: ISOSORBIDE MONO EXTENDED REL 60 MG TABCR PO SCH (08:55)
[2019-10-24] MEDS: CLOPIDOGREL BISULFATE 75 MG TAB PO SCH (08:55)
[2019-10-24] MEDS: CHOLECALCIFEROL 1,000 UNITS TAB PO SCH (08:55)
[2019-10-24] MEDS ORDERED: POTASSIUM CHLORIDE 20 MEQ TABCR PO SCH (09:00)
[2019-10-24] MEDS ORDERED: MAGNESIUM OXIDE 400 MG TAB PO SCH (09:00)
[2019-10-24] MEDS ORDERED: METOPROLOL SUCC 50MG EXT REL TAB PO SCH (09:00)
[2019-10-24] MEDS ORDERED: predniSONE 20 MG TAB PO SCH (09:00)
[2019-10-24] MEDS: FLUTICASONE/UMECLIDIN/VILANTER INH SCH (09:15)
[2019-10-24] MEDS: MAGNESIUM SULFATE / D5W 1 GM/100 ML BAG IV SCH ×2 (09:17→10:22)
[2019-10-24] MEDS ORDERED: POTASSIUM CHLORIDE 20 MEQ TABCR PO ONE (10:30)
--- NOTE | 2019-10-24 11:39 | Discharge Summary ---
Date of Service October 24, 2019 Admission HPI Per Admitting Provider Patient is a very pleasant 74-year-old male who notes that over the last not quite week he said significant worsening of shortness of breath. He notes that over the last 3 or 4 weeks has had a little bit of a cough but he really did not make much of it it was just a tickle in his throat here there. He was very active during that time playing golf and exercising. He had no significant dyspnea on exertion during that time. Just a little bit of an annoying cough. On Sunday he then noticed that the cough was getting significantly worse, still dry nonproductive, but much more consistent. He also was starting to note a lot more dyspnea on exertion during that time. He did not have any orthopnea, but did note simply rolling over in bed was difficult and he felt more short of breath laying on his sides then on his back, but again to clarify was able to lay completely flat with no problems and had no orthopnea or paroxysmal nocturnal dyspnea. He has not felt constitutional symptoms such as fevers chill s sweats or body aches, other than occasional chill but he notes that he gets this from time to time normally. He denies any chest pain pressure or other symptoms reminiscent of his prior cardiac symptoms. He mostly feels like he is just sick with something related to his emphysema. He has not had any significant swelling, he has had some weight gain, but he notes that this is as he is recovering from the episode of ischemic colitis he had about a month ago. In that respect he is not having any GI symptoms, and he is eating and drinking well now. Admission Exam Per Admitting Provider General he is awake alert oriented x3 pleasant no acute distress. HEENT normocephalic atraumatic mucous membranes are moist, neck with full range of motion. Cardio somewhat distant difficult to really discern rubs murmurs or gallops, on monitor his rates range from about 100 -115 rhythm somewhat difficult to discern but appears to may be be A. fib. Lungs are markedly diminished throughout, I do hear the faintest of an inspiratory squeaking sound in the right upper and left lower lung field but mostly his lung exam is dustin rkable for help quiet his air entry is. There is no other rales rhonchi or wheezes, he shows good effort, no accessory muscle use. His abdomen is soft nondistended nontender no masses organomegaly. Extremities show no cyanosis clubbing or edema, no calf tenderness. Musculoskeletal exam shows his intercostals to be somewhat tight with decreased range of motiongentle balanced ligamentous tension was done with a small improvement in tissue texture. Patient tolerated this well. Neuro showed no focal deficits, cranial nerves II through XII are grossly intact gross motor and sensory are intact. Mental status shows good recent and remote recall normal mood and affect good judgment and insight. Skin shows no rashes, no pallor or icterus. Principal Diagnosis Emphysema Atrial Fibrillation Discharge Exam General: Alert, oriented. No acute distress. Skin: No noted rashes or bruises Psych: Appropriate mood and affect Neuro: No gross deficits HEENT: NC/AT Chest: Nontender to palpation. CV:Irregularly irregular rate and rhythm. No murmurs appreciated Resp: Breath sounds clear on top bilaterally with some fine crackles noted at the bases, no increased effort of breathing. Abdomen: Soft, nontender, nondistended. No guarding. No organomegaly appreciated. Extremities: No edema in lower extremities bilaterally. Discharge Data Allergies Allergy/AdvReac Type Severity Reaction Status Date / Time amoxicillin Allergy Mild RASH/ITCHIN Verified 10/22/19 15:32 G lactose AdvReac Intermediate GI SYMPTOMS Verified 10/22/19 15:32 benzalkonium chloride AdvReac Mild ITCHING/SWE Verified 10/22/19 15:32 LLING/RASH gluten AdvReac Unknown gluten Verified 10/22/19 15:32 intolerant per EGD Consultations 10/22/19 15:36 ED Decision to Admit Stat Ordered Studies 10/22/19 14:54 CT angio chest PE protocol Stat Hospital Course (1) Dyspnea: 74yo with PMHx of emphysema, ischemic cardiomyopathy with EF of 30-39%, HTN, HLD, GERD, unstable angina and CAD s/p angipoplasty and ICD placement who presented with SOB on exertion. Dyspnea: -Pt presented with dyspnea on exertion -Likely secondary to an acute emphysematous exacerbation vs. cardiac cause -No oxygen requirement while hospitalized -Significant improvement with IV steroids and azithromycin -transitioned to 60-40-20 Prednisone taper on discharge. 2 more days of Azithromycin. -continue PRN duonebs -f/u outpt with PCP Emphysema -CT with evidence of apical emphysema -No official dx of COPD -will treat as a COPD exacerbation though as above, with azithromycin and steroids; continue -continue PRN duonebs -continue home Trelegy Ellipta Abnormal heart rhythm (Atrial Fibrillation) -Pt observed on telemetry while hospitalized; noted to be in atrial fibrillation -Not rate controlled on discharge but rates in low 100s on average. -increased metoprolol succ to 50mg QAM, d/c Norvasc given BP on lower end. Discharged with the same. -CHADS-Vasc >1(~4), needed anticoagulation - was on heparin on admission- transitioned and discharged with Eliquis 5mg BID. -Had ICD which was interrogated 10/22. -close PCP and pourer buggy ladle f/u recommended. Elevated troponin -Pt with no chest pain but significant cardiac Hx -Troponins elevated at 0.5 and downtrended -EKG with abnormal rhythm but no new convincing MA -Likely secondary to heart strain given pt is also in atrial fibrillation (see above) Ischemic cardiomyopathy: -severe baseline ischemic cardiomyopathy along with HFrEF. -Does not appear to be in CHF exacerbation currently -continue home Entresto (sacubutril 24mg-valsartan 26mg) -continue home isosorbide 60mg -continue home furosemide 40mg q2days CAD with Hx of MA -continue home plavix, aspirin Hypertension: -Continue metoprolol 50mg as above; -holding home Norvasc given BPs on softer side. Hyperlipidemia: -Continue home atorvastatin 80mg PO GERD: - Continue home omeprazole 40mg PO BID Total Time Total Time Spent Total Time Spent (In Minutes): >30 Discharge Plan Discharge Items Patient Disposition: Home - Self-Care Reason For Visit: DYSPNEA Discharge Diagnosis: Atrial Fibrillation Emphysema exacerbation Activity: Per Instructions section Non-emergency contact: Primary Care Provider and Content Production Specialist Call non-emergency contact if: you have any medication questions, your symptoms worsen and you have a fever Follow-up/Referrals: Quirino Hensley MD [Primary Care Provider] - 10/30/19 1:00 pm (Please, follow up at Dr. Hensley's office with his associate, Tova Roberts PA-C on October 30 at 1:00 pm. *If you need to change this appointment, call their office at [phone].) Diet: Heart Healthy and Low Sodium (2gm) Addtl Attending Provider Instructions: Mr. Alcala, you were admitted and treated for an acute exacerbation of your emphysema and new onset atrial fibrillation. Emphysema -continue the antibiotic Azithromycin for 2 more days starting TOMORROW. -continue taking your oral steroids for the next 11 days, STARTING TOMORROW. Take 60mg for the next 3 days, 40mg for the next 4 days, then 20mg for the next 4 days. -continue your home albuterol and Trelegy Ellipta -close followup with Dr. Hensley is recommended within the next week. Atrial Fibrillation -continue taking the metoprolol succinate at 50mg daily you were prescribed. STOP taking the 25mg dose. -Stop taking your amlodipine until you followup with Dr. Hensley, as your blood pressures have been on the lower side. -Followup with Dr. Hensley as to when you can restart taking that medication, if at all. -continue taking the Eliquis 5mg twice daily to keep your blood thin and prevent strokes -close followup with Dr. Hensley and your pourer buggy ladle Dr. Newberry is recommended for continued monitoring of your heart and further prescriptions. Should your symptoms worsen or return please seek medical care once more. It was a pleasure taking care of you during your stay here! Pending Studies at Discharge: No Stand-Alone Forms: My [facility] [employer], Smoking Cessation Medications and DC Order Prescriptions: New azithromycin [Zithromax] 250 mg Tablet 250 mg PO QAM 2 Days Qty: 2 RF: 0 Eliquis 5 mg Tablet 5 mg PO BID 30 Days Qty: 60 RF: 0 metoprolol succinate 50 mg Tablet Extended Release 24 Hr 50 mg PO QAM 30 Days Qty: 30 RF: 0 prednisone 20 mg tablet 20 mg PO DAILY Qty: 21 RF: 0 Continued testosterone [AndroGel] 20.25 mg/1.25 gram (1.62 %) gel in metered-dose pump 2 pump transdermal DAILY Qty: 3 RF: 0 zolpidem 5 mg tablet 5 - 10 mg PO HS PRN (Reason: Sleep) 90 Days Qty: 180 RF: 0 nitroglycerin [Nitrostat] 0.4 mg tablet, sublingual 0.4 mg SL Q5M PRN (Reason: Chest Pain) RF: 0 Vitron-C 65 mg iron- 125 mg tablet,delayed release (DR/EC) 1 tab PO 3XWK RF: 0 albuterol sulfate 90 mcg/actuation aerosol powdr breath activated 90 mcg INH Q6H PRN (Reason: shortness of breath or wheezing) Qty: 1 RF: 2 Entresto 24-26 mg tablet 1 tab PO BID RF: 0 furosemide 40 mg Tablet 40 mg PO Q2D RF: 0 atorvastatin 80 mg Tablet 80 mg PO PM RF: 0 clopidogrel [Plavix] 75 mg Tablet 75 mg PO DAILY RF: 0 omeprazole 20 mg Capsule,Delayed Release(Dr/Ec) 40 mg PO BID RF: 0 aspirin 81 mg Tablet,Chewable 81 mg PO DAILY RF: 0 folic acid 1 mg Tablet 1 mg PO QAM RF: 0 cholecalciferol (vitamin D3) 2,000 unit Tablet 2,000 unit PO DAILY RF: 0 isosorbide mononitrate 60 mg tablet extended release 24 hr 60 mg PO DAILY RF: 0 Trelegy Ellipta 100-62.5-25 mcg blister with device 1 inh inhalation DAILY RF: 0 Discontinued amlodipine 2.5 mg Tablet 2.5 mg PO DAILY RF: 0 metoprolol succinate 25 mg Tablet Extended Release 24 Hr 25 mg PO QAM RF: 0 Discharge Orders: Discharge Order (Routine); Ordered 10/24/19 Ordered By: Phyllis Morrison/Other Patient Handouts: Emphysema, Fibrillation Atrial Dc, Apixaban Oral tablet, Azithromycin Oral tablet, Metoprolol Succinate Oral tablet extended- release, Prednisone Oral tablet Admission Data Admit Date/Time: 10/22/19 17:36 Attending Provider: Teddy Willams Admit Provider: Teddy Willams Primary Care Provider: Quirino Hensley Other Providers: Kristopher Williamson Other Interventions: Discharge Summary Assessment (RN) Last Done: 10/24/19 12:23 DC Date/Time DO NOT enter until pt leaves facility: 10/24/19 12:50 Supervising Physician Co-Signing Physician Notes I personally examined the patient and verified all reyez points of history and exam, discussed case, and agree with decision making with Dr Mccann. feeling better breathing better no orthopnea (does not cough worse when laying down but only when on side, not when on back - and able to lay flat without dyspnea) no FRANCES walked multiple laps in pimentel. no cp no sob Vitals noted, in general he is awake and alert pleasant no distress. HEENT normocephalic atraumatic mucous members moist. Breathing unlabored no accessory muscle use good effort, much better air entry than before no rhonchi no wheeze faint basilar rales. Cardiac rhythm is noted to be A. fib generally around 110, less persistent bursts, some dips below 100. Neuro shows no focal deficits Dyspneadifferential is been explored, it seems most likely that an emphysema flareup was the cause of his dyspnea. See below otherwise. Emphysema flareimproving nicely with management consistent with a COPD exacerbation, although he does not truly have COPD, which is probably why he is improving so quickly. Finish out 5-day course of Zithromax, prednisone taper. Doing well in this regard. New onset atrial fibrillationalmost certainly related to his underlying cardiomyopathy and chronic lung disease. He had a recent echo about a month ago, TSH sl low at 0.153, but given illness i question if this is sick euthyroid and rather than looking at afib as thyroid driven it's better to repeat TSH in ~3-4wks. Given his rates are fast enough, I did wonder if this could be part of his dyspnea on exertion, but given that his dyspnea has improved while his rates stayed somewhat high strongly suggest that the atrial fibrillation is an incidental finding. Goals are rate control and anticoagulation - discussed anticoagulation at length and in detail discussing risks/benefits --> will go w eliquis; rate control improving somewhat on higher dosing of metoprolol -- and mag/K were low so replacing these could help, and anticipate some degree of improvement in rates as his lung disease flare up continues to improve. continue home dosing of lasix (bibasilar rales nonspecific, could maybe be a touch of pulmonary edema from rates, but BP runs somewhat soft and would hesitate to drop pressure more treating a nonspecific finding in a symptomatically improving patient), stop amlodipine to "make room" in BP for escalation of metoprolol; outpt f/u Elevated troponinsimply appears to been supply demand mismatch from both of a jorge, no evidence of MA. Otherwise as above. stable for home, cardiology this week, PCP this week or next Resident Activity Tracking Resident Involvement: Resident Care Provided Care Provided: Adult Hospital Medicine
--- NOTE | 2019-10-24 13:59 | Billing Data ---
Coding Level of Care Code D/C Day Management >30 mins
== END 2019-10-24 12:50 | disposition home or self-care (01) | DRG 191 ==
LOC: ED 14:27 → 2E 17:36
DX: J43.9 Emphysema, unspecified; R06.02 Shortness of breath; I11.9 Hypertensive heart disease without heart failure; I24.8 Other forms of acute ischemic heart disease; I25.110 Atherosclerotic heart disease of native coronary artery with unstable angina pectoris; E78.5 Hyperlipidemia, unspecified; Z79.82 Long term (current) use of aspirin; Z13.220 Encounter for screening for lipoid disorders; K21.9 Gastro-esophageal reflux disease without esophagitis; I25.2 Old myocardial infarction; Z88.1 Allergy status to other antibiotic agents; I25.5 Ischemic cardiomyopathy; Z00.00 Encounter for general adult medical examination without abnormal findings; Z95.810 Presence of automatic (implantable) cardiac defibrillator; I48.91 Unspecified atrial fibrillation; Z87.891 Personal history of nicotine dependence; E11.9 Type 2 diabetes mellitus without complications

== ENCOUNTER 2019-11-11 08:03 | Inpatient (IN) ==
[2019-11-11] MEDS ORDERED: ACETAMINOPHEN 325 MG TAB PO PRN (08:17)
[2019-11-11] MEDS ORDERED: SOTALOL HCL 80 MG TAB PO ONE (10:48)
[2019-11-11 11:25] LABS: Basophils # (auto) 0.01 K/uL (0-0.2); Basophils % (auto) 0.1 %; Eosinophils # (auto) 0.05 K/uL (0-0.5); Eosinophils % (auto) 0.5 %; Hematocrit (blood only) 36.1 % (42-52); Hemoglobin 12.2 g/dL (14.0-18.0); Immature Granulocytes # (auto) 0.02 K/uL (0.00-0.02); Immature Granulocytes % (auto) 0.2 %; Lymphocytes # (auto) 0.46 K/uL (1.2-3.4); Lymphocytes % (auto) 4.8 %; Mean Corpuscular Hemoglobin 29.4 pg (25-34); Mean Corpuscular Hgb Conc 33.8 g/dL (32-36); Monocytes # (auto) 0.58 K/uL (0.11-0.59); Monocytes % (auto) 6.1 %; Neutrophils # (auto) 8.44 K/uL (1.4-6.5); Neutrophils % (auto) 88.3 %; Platelet Count 104 K/uL (130-400); RDW Coefficient of Variation 16.5 % (11.5-14.5); RDW Standard Deviation 52.7 fL (36.4-46.3); Red Blood Count 4.15 M/uL (4.7-6.1); White Blood Count 9.56 K/uL (4.8-10.8)
[2019-11-11 11:59] LABS: Albumin Level 2.9 gm/dl (3.4-5.0); BUN Creatinine Ratio 18.3 (10-20); Calcium 7.8 mg/dl (8.5-10.1); Creatinine Clr Calc Pharmacy 50.3 ml/min; Est GFR (African American) 58.4; Est GFR (Non-African American) 50.4; Potassium 3.5 mmol/L (3.5-5.1)
[2019-11-11 12:04] LABS: Albumin Globulin Ratio 0.9 (0.9-2); Bilirubin,Total 1.9 mg/dl (0.2-1); Globulin 3.4 gm/dl (2.5-4.0); Total Protein 6.3 gm/dl (6.4-8.2)
[2019-11-11] MEDS ORDERED: NITROGLYCERIN SL 0.4 MG/TAB TAB SL PRN (12:21)
[2019-11-11] MEDS ORDERED: ALBUTEROL HFA 8 GM INHALER INH PRN (12:21)
[2019-11-11] MEDS ORDERED: ZOLPIDEM TARTRATE 5 MG TAB PO PRN (12:21)
[2019-11-11] MEDS ORDERED: POTASSIUM CHLORIDE 20 MEQ TABCR PO ONE (12:26)
[2019-11-11] MEDS ORDERED: SACUBITRIL-VALSARTAN 24-26 MG TAB PO SCH (12:30)
[2019-11-11] MEDS ORDERED: PNEUMOCOCCAL Polysaccharide Vaccine 25mcg/0.5mL vial/Syr IM ONE (12:45)
--- NOTE | 2019-11-11 12:52 | XRay Report ---
XR chest 1V portable HISTORY: 74 years-old Male dyspnea acute shortness of breath COMPARISON: Chest radiographs and CTA chest 10/22/2019 TECHNIQUE: Portable AP view of the chest FINDINGS: Cardiac silhouette is enlarged, stable. Calcified plaque of the thoracic aortic arch. Stable position ing of the left subclavian pacer/AICD. Severe emphysema with chronic fibrotic changes. No pneumothora x. Trace right pleural effusion. No lobar airspace consolidation typical for pneumonia. Suggestion of mild pulmonary vascular congestion. Degenerative changes of the shoulders and spine. IMPRESSION: 1. Cardiomegaly with suggestion of mild pulmonary vascular congestion. 2. Trace right pleural effusion. 3. Advanced emphysema with chronic fibrotic changes. The above report was generated using voice recognition software. It may contain grammatical, syntax o r spelling errors. Electronically signed by: Collin Landin M.D. 11/11/2019 12:51 PM
[2019-11-11] MEDS: ISOSORBIDE MONO EXTENDED REL 60 MG TABCR PO SCH (13:39)
[2019-11-11] MEDS: PANTOprazole 40 MG TAB PO SCH ×2 (13:39→20:59)
[2019-11-11] MEDS: FUROSEMIDE 40 MG TAB PO SCH (13:39)
[2019-11-11] MEDS ORDERED: FUROSEMIDE 20 MG in SYRINGE 0 ML IV STA (14:02)
[2019-11-11] MEDS: APIXABAN 5 MG TABLET PO SCH ×2 (14:29→20:55)
--- NOTE | 2019-11-11 18:17 | Cardiology Progress Note ---
Date of Service November 11, 2019 Subjective See outpatient admission note. 74-year-old male with ischemic cardiomyopathy and recent onset atrial fibrillation declining functional capacity exertional dyspnea and acute on chronic decompensated congestive heart failure. Patient admitted for rhythm control. Begin on sotalol today. Single dose of IV furosemide to begin Anticipate potential synchronized electrical cardioversion in 2 days Patient appropriately anticoagulated with Eliquis Results & Data Vital Signs (Past 12 Hours) Vital Signs Temp Pulse Resp BP Pulse Ox 11/11/19 15:46 36.7 C 98 H 20 96/70 L 97 11/11/19 12:19 36.6 C 104 H 18 114/84 92 11/11/19 08:29 36.4 C L 125 H 27 H 107/74 91
[2019-11-11] MEDS ORDERED: Nursing to Pharmacy Communication ONE ×2 (19:47→19:50)
[2019-11-11] MEDS: ATORVASTATIN 40 MG TAB PO SCH (20:57)
[2019-11-11] MEDS ORDERED: SOTALOL HCL 80 MG TAB PO SCH (21:00)
[2019-11-11] MEDS: SOTALOL HCL 80 MG TAB PO SCH (21:01)
[2019-11-11] MEDS ORDERED: LORazepam 0.5 MG TAB PO STA (22:35)
[2019-11-12] MEDS: APIXABAN 5 MG TABLET PO SCH ×2 (08:07→21:18)
[2019-11-12] MEDS: SOTALOL HCL 80 MG TAB PO SCH ×2 (08:08→21:19)
[2019-11-12] MEDS: CHOLECALCIFEROL 1,000 UNITS TAB PO SCH (08:08)
[2019-11-12] MEDS: FOLIC ACID 1 MG TAB PO SCH (08:09)
[2019-11-12] MEDS: CLOPIDOGREL BISULFATE 75 MG TAB PO SCH (08:09)
[2019-11-12] MEDS: ISOSORBIDE MONO EXTENDED REL 60 MG TABCR PO SCH (08:10)
[2019-11-12] MEDS: PANTOprazole 40 MG TAB PO SCH ×2 (08:10→21:19)
[2019-11-12] MEDS ORDERED: ALBUTEROL INH PRN (08:39)
[2019-11-12] MEDS: FLUTICASONE/UMECLIDIN/VILANTER INH SCH (09:08)
[2019-11-12] MEDS ORDERED: SOTALOL HCL 80 MG TAB PO ONE (12:00)
[2019-11-12 12:50] LABS: BUN Creatinine Ratio 24.6 (10-20); Calcium 8.2 mg/dl (8.5-10.1); Creatinine Clr Calc Pharmacy 51.4 ml/min; Est GFR (African American) 59.9; Est GFR (Non-African American) 51.7; Potassium 3.6 mmol/L (3.5-5.1)
--- NOTE | 2019-11-12 13:40 | Cardiology Progress Note ---
Date of Service November 12, 2019 Assessment & Plan (1) Atrial fibrillation: Patient poorly tolerated atrial fibrillation with elevated ventricular response rate Admitted and begun on sotalol for rate control and ultimately attempt to return to sinus rhythm with synchronized electrical cardioversion scheduled in a.m. We will continue to hold Entresto Supplement potassium Continue appropriate anticoagulation with Eliquis (2) Ischemic cardiomyopathy: Mild volume overload on admission improved with single dose of furosemide. Hemodynamically improved on holding Entresto rates improving with sotalol Hope to improve functional capacity by returning to sinus rhythm (3) Hyperlipidemia: (4) Emphysema of lung: Subjective Patient seen and examined, chart, medications, telemetry reviewed. Patient much more comfortable than yesterday less dyspneic. Denies any chest pains or discomfort. Blood pressures improved Tolerating sotalol Physical Exam 2 Constitutional: WD/WN, vitals as above Eyes: PERRL, conjunctivae normal, anicteric sclerae ENMT: external ear and nose normal, oropharynx normal Neck: trachea midline, no thyromegaly Respiratory: Auscultation: + diminished lung sounds; no rales, no rhonchi and no wheezes Cardiovascular: Rate/Rhythm: + irregularly irregular Heart Sounds: normal S1 and normal S2 Vessels: no JVD Extremities: no edema Chest (Breasts): Chest: + pacemaker (Pacer defibrillator present without irritation or tenderness) Gastrointestinal (Abdomen): normal bowel sounds, soft, nontender, no hepatosplenomegaly Results & Data Vital Signs (Past 12 Hours) Vital Signs Temp Pulse Pulse Resp BP Pulse Ox 11/12/19 12:00 36.7 C 50 L 16 122/84 98 11/12/19 08:00 36.8 C 92 H 90 18 109/68 96 11/12/19 04:00 36.5 C 96 H 19 100/47 L 93 Laboratory Results Laboratory Results - last 24 hr 11/12/19 12:07 Sodium 133 L Potassium 3.6 Chloride 101 Carbon Dioxide 24 Anion Gap 8.0 BUN 33 H Creatinine 1.35 Est Cr Clr Drug Dosing 51.4 Est GFR ( Amer) 59.9 Est GFR (Non-Af Amer) 51.7 BUN/Creatinine Ratio 24.6 H Glucose 177 H Calcium 8.2 L (1) Hyperlipidemia Hyperlipidemia type: unspecified Qualified Code(s): E78.5 - Hyperlipidemia, unspecified
[2019-11-12] MEDS ORDERED: POTASSIUM CHLORIDE 20 MEQ TABCR PO ONE (13:44)
--- NOTE | 2019-11-12 14:09 | Anesthesiology Consultation ---
Date of Service November 12, 2019 Assessment & Plan (1) Encounter for pre-operative examination: Chart Review Chart Review: Acceptable Risk for Surgery Consults Requested none History Surgery Operation Date: 11/13/19 07:30 Proposed Procedures p Cardioversion Reception Specialist w/Anesthesia - Tera Newberry MD Height/Weight Height: 5 ft 8 in Weight: 84 kg Allergies Allergy/AdvReac Type Severity Reaction Status Date / Time amoxicillin Allergy Mild RASH/ITCHIN Verified 11/06/19 10:00 G lactose AdvReac Intermediate GI SYMPTOMS Verified 11/06/19 10:00 benzalkonium chloride AdvReac Mild ITCHING/SWE Verified 11/06/19 10:00 LLING/RASH gluten AdvReac Unknown gluten Verified 11/06/19 10:00 intolerant per EGD Medications Home Medications Medication Instructions Recorded Confirmed Last Taken aspirin 81 mg PO DAILY 11/13/18 11/11/19 11/10/19 17:00 atorvastatin 80 mg PO PM 11/13/18 11/11/19 11/10/19 17:00 clopidogrel [Plavix] 75 mg PO DAILY 11/13/18 11/11/19 11/10/19 17:00 folic acid 1 mg PO QAM 11/13/18 11/11/19 11/10/19 17:00 furosemide 40 mg PO Q2D 11/13/18 11/11/19 11/09/19 10:00 omeprazole 40 mg PO BID 11/13/18 11/11/19 11/10/19 21:00 albuterol sulfate 90 mcg/actuation 90 mcg INH Q6H PRN #1 ea 08/29/19 11/11/19 11/11/19 07:45 breath activated powder inhaler iron,carbonyl 65 mg-vitamin C 125 1 tab PO 3XWK 08/29/19 11/11/19 11/10/19 11:00 mg tablet,delayed release nitroglycerin 0.4 mg sublingual 0.4 mg SL Q5M PRN 08/29/19 11/11/19 10/22/19 tablet testosterone 20.25 mg/1.25 gram 2 pump TRANSDERMAL DAILY #3 btl 09/11/19 11/11/19 11/11/19 05:30 (1.62 %) transdermal gel pump Trelegy Ellipta 1 inh INHALATION DAILY 09/22/19 11/11/19 11/10/19 11:00 cholecalciferol (vitamin D3) 2,000 unit PO DAILY 09/22/19 11/11/19 11/10/19 11:00 isosorbide mononitrate 60 mg PO DAILY 09/22/19 11/11/19 11/10/19 10:30 sacubitril 24 mg-valsartan 26 mg 1 tab PO BID tab 09/26/19 11/11/19 11/10/19 17:00 tablet zolpidem 5 mg tablet 5 - 10 mg PO HS PRN 90 Days #180 10/21/19 11/11/19 11/11/19 02:30 tab apixaban [Eliquis] 5 mg PO BID 30 Days #60 tab 10/24/19 11/11/19 11/10/19 17:00 metoprolol succinate 50 mg See Rx Instructions PO QAM 30 Days 11/05/19 11/11/19 11/10/19 10:00 tablet,extended release 24 hr #0 tab 0 metoprolol succinate 25 mg PO DAILY 11/11/19 11/11/19 11/10/19 17:00 Active Medications Generic Name Dose Route Start Last Admin Trade Name Freq PRN Reason Stop Dose Admin Apixaban 5 mg 11/11/19 14:00 11/12/19 08:07 Eliquis PO 12/11/19 13:59 5 mg BID ALEJANDRA Administration Atorvastatin Calcium 80 mg 11/11/19 21:00 11/11/19 20:57 Lipitor PO 12/11/19 20:59 80 mg PM ALEJANDRA Administration Clopidogrel Bisulfate 75 mg 11/12/19 09:00 11/12/19 08:09 Plavix PO 12/12/19 08:59 75 mg DAILY ALEJANDRA Administration Fluticasone/Umeclidinium/Vilanterol 1 ea 11/12/19 09:00 11/12/19 09:08 Trelegy Ellipta 100-62.5-25 INH 12/12/19 08:59 1 ea DAILY ALEJANDRA Administration Folic Acid 1 mg 11/12/19 09:00 11/12/19 08:09 Folvite PO 12/12/19 08:59 1 mg QAM ALEJANDRA Administration Furosemide 40 mg 11/11/19 13:30 11/11/19 13:39 Lasix PO 12/11/19 13:29 40 mg Q48H ALEJANDRA Administration Miscellaneous 1 ea 11/12/19 06:00 11/12/19 06:35 Order Awaiting Action N/A 12/12/19 05:59 Not Given DAILY@0600 ALEJANDRA Pantoprazole Sodium 40 mg 11/11/19 12:30 11/12/19 08:10 Protonix PO 12/11/19 12:29 40 mg BID ALEJANDRA Administration Sacubitril/Valsartan 1 tab 11/11/19 12:30 11/11/19 13:39 Entresto 24/26mg PO 12/11/19 12:29 1 tab BID ALEJANDRA Administration Vitamin D 2,000 units 11/12/19 09:00 11/12/19 08:08 Vitamin D3 PO 12/12/19 08:59 2,000 units DAILY ALEJANDRA Administration Past Medical History Medical History Arthritis Diabetes Emphysema of lung GERD (gastroesophageal reflux disease) Hyperlipidemia Hypertension ICD (implantable cardioverter-defibrillator) in place medtronic [address] Newberry Ischemic cardiomyopathy Ischemic colitis Migraine Myocardial Infarction most recent 2013, adjust med and icd inserted Pituitary adenoma removal of adenoma from pituitary 2016 Ventricular tachycardia Past Family History Family History Other Cancer Past Surgical History Surgical History History of abdominal aortic aneurysm (AAA) repair 2007 History of total hip arthroplasty right and left Hx of [id number] bypass right and left leg Social History Smoking Status: Former smoker Do You Dip or Chew Tobacco: No Hx Alcohol Use: Yes Alcohol type: hard liquor alcohol intake frequency: a few times a week Hx Substance Use: No substance use type: does not use Physical Exam Vital Signs Last Vital Signs Temp 98.1 F 11/12/19 12:00 Pulse 95 H 11/12/19 15:18 Resp 20 11/12/19 15:18 BP 101/65 11/12/19 15:18 Pulse Ox 94 11/12/19 15:18 Testing Laboratory Results 11/11/19 11:12 11/12/19 12:07 Electrocardiogram Date: 11/12/19 Atrial fibrillation with rapid ventricular response with premature ventricular or aberrantly conducted complexes, rate 104 bpm Septal infarct , age undetermined Abnormal ECG When compared with ECG of 11-NOV-2019 08:55, Significant changes have occurred Chest X-Ray Date: 11/11/19 IMPRESSION: 1. Cardiomegaly with suggestion of mild pulmonary vascular congestion. 2. Trace right pleural effusion. 3. Advanced emphysema with chronic fibrotic changes. Echocardiogram Date: 08/11/19 EF: 35-39% LV cavity size is mildly enlarged There is a large sized apical, septal, anteroseptal, anterior, inferior, and posterior wall motion abnormality with mild hypokinesis to akinesis of the segments There is small sized apical scar LA is moderately enlarged Mild MR/TR
[2019-11-12] MEDS ORDERED: LORazepam 0.5 MG TAB PO STA (20:26)
[2019-11-12] MEDS: ATORVASTATIN 40 MG TAB PO SCH (21:19)
[2019-11-12] MEDS ORDERED: LORazepam 0.5 MG TAB ONE (22:52)
[2019-11-13] MEDS ORDERED: PROPOFOL IV EMULSION 10 MG/ML 20 ML VIAL IV ONE (06:45)
[2019-11-13] MEDS ORDERED: MIDAZOLAM HCL 1 MG/ML 2ML VIAL ONE (06:45)
[2019-11-13] MEDS ORDERED: ATROPINE SULFATE 0.1 MG/ML 10ML SYR IV ONE (07:22)
[2019-11-13] MEDS ORDERED: ATROPINE SULFATE 0.1 MG/ML 10ML SYR IV PRN (07:28)
[2019-11-13] MEDS ORDERED: ePHEDrine sulfate 50 MG/ML AMP IV PRN (07:28)
--- NOTE | 2019-11-13 07:40 | Cardioversion ---
Date of Service November 13, 2019 Electrical Cardioversion Rpt Electrical Cardioversion Report Patient was seen and examined this morning. Procedure explained in detail and informed consent was obtained. Patient was sedated via anesthesia consultation with continuous heart rate blood pressure and oxygen saturation monitoring Single synchronized electrical cardioversion was performed using 150 J biphasic countershock with successful return to sinus rhythm EKG post procedure revealed sinus rhythm with first-degree AV block rate 89 bpm QT corrected 491 Patient aroused post procedure having tolerated well Pacemaker defibrillator interrogated immediately post procedure with normal f unction and defined atrial activity. Atrial therapies enabled Impression: Successful synchronized electrical cardioversion Plan: Continued antiarrhythmic therapy with sotalol
--- NOTE | 2019-11-13 07:49 | Anesthesiology Progress Note ---
Date of Service November 13, 2019 Anesthesia Post Procedure Vital Signs Vital Signs: Temp Pulse Pulse Resp BP Pulse Ox 11/13/19 02:41 36.4 C L 108 H 16 107/79 94 11/13/19 00:05 98 H 11/12/19 23:23 36.3 C L 102 H 22 112/74 95 11/12/19 19:09 36.3 C L 89 16 109/70 91 11/12/19 15:18 95 H 20 101/65 94 11/12/19 12:00 36.7 C 50 L 16 122/84 98 11/12/19 08:00 36.8 C 92 H 90 18 109/68 96 Transfer of Care Handoff Completed per policy Notes Mental Status: alert / awake / arousable and participated in evaluation Patient Amnestic to Procedure: Yes Nausea / Vomiting: adequately controlled Pain: adequately controlled Airway Patency, RR, SpO2: stable & adequate BP & HR: stable & adequate Hydration State: stable & adequate Anesthetic Complications: no major complications apparent and Pt Satisfied with anesthetic care
[2019-11-13] MEDS: ISOSORBIDE MONO EXTENDED REL 30 MG TABCR PO SCH (08:29)
[2019-11-13] MEDS: CLOPIDOGREL BISULFATE 75 MG TAB PO SCH (08:29)
[2019-11-13] MEDS: SOTALOL HCL 80 MG TAB PO SCH ×2 (08:29→20:38)
[2019-11-13] MEDS: PANTOprazole 40 MG TAB PO SCH ×2 (08:29→20:38)
[2019-11-13] MEDS: CHOLECALCIFEROL 1,000 UNITS TAB PO SCH (08:29)
[2019-11-13] MEDS: APIXABAN 5 MG TABLET PO SCH ×2 (08:31→20:38)
[2019-11-13] MEDS: FOLIC ACID 1 MG TAB PO SCH (08:31)
[2019-11-13] MEDS: FLUTICASONE/UMECLIDIN/VILANTER INH SCH (08:33)
[2019-11-13] MEDS ORDERED: LORazepam 0.5 MG TAB PO PRN (09:36)
--- NOTE | 2019-11-13 09:40 | Cardiology Progress Note ---
Date of Service November 13, 2019 Assessment & Plan (1) Atrial fibrillation: Patient poorly tolerated atrial fibrillation with elevated ventricular response rate Tolerating sotalol to date Successful synchronized electrical cardioversion earlier this morning Will maintain telemetry at least an additional 24 hours (2) Ischemic cardiomyopathy: Mild volume overload on admission improved with single dose of furosemide. Hemodynamically improved on holding Entresto rates improving with sotalol Hope to improve functional capacity by returning to sinus rhythm We will continue to hold Entresto possible resume low-dose losartan rather than Entresto given past difficulties with hypotension since initiating this drug over the last 6-week (3) Hyperlipidemia: (4) Emphysema of lung: Subjective Patient seen and examined, chart, medications, telemetry reviewed. Patient eating breakfast. Underwent synchronized electrical cardioversion with successful conversion to sinus rhythm earlier. Notes restless sleep overnight mild pedal edema but no acute complaints. Blood pressures appear marginal still Physical Exam Constitutional: WD/WN, vitals as above Eyes: PERRL, conjunctivae normal, anicteric sclerae ENMT: external ear and nose normal, oropharynx normal Neck: trachea midline, no thyromegaly Respiratory: Auscultation: + diminished lung sounds; no rales, no rhonchi and no wheezes Cardiovascular: Rate/Rhythm: + irregularly irregular Heart Sounds: normal S1 and normal S2 Vessels: no JVD Extremities: + edema (Trace pedal) Chest (Breasts): Chest: + pacemaker (Pacer defibrillator present without irritation or tenderness) Gastrointestinal (Abdomen): normal bowel sounds, soft, nontender, no hepatosplenomegaly Results & Data Vital Signs (Past 12 Hours) Vital Signs Temp Pulse Pulse Resp BP Pulse Ox 11/13/19 07:40 90 18 90/69 L 94 11/13/19 02:41 36.4 C L 108 H 16 107/79 94 11/13/19 00:05 98 H 11/12/19 23:23 36.3 C L 102 H 22 112/74 95 Laboratory Results Laboratory Results - last 24 hr 11/12/19 12:07 Sodium 133 L Potassium 3.6 Chloride 101 Carbon Dioxide 24 Anion Gap 8.0 BUN 33 H Creatinine 1.35 Est Cr Clr Drug Dosing 51.4 Est GFR ( Amer) 59.9 Est GFR (Non-Af Amer) 51.7 BUN/Creatinine Ratio 24.6 H Glucose 177 H Calcium 8.2 L (1) Hyperlipidemia Hyperlipidemia type: unspecified Qualified Code(s): E78.5 - Hyperlipidemia, unspecified
[2019-11-13 10:23] LABS: BUN Creatinine Ratio 27.8 (10-20); Creatinine Clr Calc Pharmacy 54.5 ml/min; Est GFR (African American) 64.5; Est GFR (Non-African American) 55.7; Potassium 3.6 mmol/L (3.5-5.1)
[2019-11-13] MEDS: FUROSEMIDE 40 MG TAB PO SCH (13:38)
[2019-11-13] MEDS: ATORVASTATIN 40 MG TAB PO SCH (20:38)
[2019-11-13] MEDS ORDERED: COUGH DROP (SUGAR FREE) LOZ 24 LOZ/1 BOX BUCCAL ONE (23:56)
[2019-11-14 07:45] LABS: BUN Creatinine Ratio 24.2 (10-20); Calcium 7.9 mg/dl (8.5-10.1); Est GFR (African American) 63.3; Est GFR (Non-African American) 54.6; Potassium 3.7 mmol/L (3.5-5.1)
[2019-11-14] MEDS: CHOLECALCIFEROL 1,000 UNITS TAB PO SCH (08:25)
[2019-11-14] MEDS: PANTOprazole 40 MG TAB PO SCH (08:25)
[2019-11-14] MEDS: SOTALOL HCL 80 MG TAB PO SCH (08:26)
[2019-11-14] MEDS: APIXABAN 5 MG TABLET PO SCH (08:26)
[2019-11-14] MEDS: ISOSORBIDE MONO EXTENDED REL 30 MG TABCR PO SCH (08:26)
[2019-11-14] MEDS: CLOPIDOGREL BISULFATE 75 MG TAB PO SCH (08:26)
[2019-11-14] MEDS: FOLIC ACID 1 MG TAB PO SCH (08:27)
[2019-11-14] MEDS: FLUTICASONE/UMECLIDIN/VILANTER INH SCH (08:28)
[2019-11-14] MEDS ORDERED: FUROSEMIDE 40 MG TAB PO ONE (09:47)
[2019-11-14] MEDS ORDERED: POTASSIUM CHLORIDE 20 MEQ TABCR PO ONE (09:49)
--- NOTE | 2019-11-14 21:34 | Discharge Summary ---
PRIMARY CARE PHYSICIAN: Dr. Hensley. DISCHARGE DIAGNOSES: 1. Atrial fibrillation with poorly controlled ventricular response rate. 2. Successful synchronized electrical cardioversion and initiation of sotalol therapy. 3. Mildly decompensated acute on chronic congestive heart failure. 4. Ischemic cardiomyopathy. OPERATIONS AND PROCEDURES: Synchronized electrical cardioversion on 11/13/2019. COMPLICATIONS: None. ALLERGIES: AMOXICILLIN, LACTOSE, BENZOXONIUM CHLORIDE AND GLUTEN. DISCHARGE MEDICATIONS: Instructions: Discontinue Entresto, discontinue metoprolol succinate, increase furosemide to 40 mg daily. NEW MEDICATIONS: Losartan 25 mg p.o. daily, sotalol 80 mg p.o. b.i.d. Continue albuterol sulfate 90 mcg q. 6 hours, aspirin 81 mg per day, atorvastatin 80 mg q.p.m., vitamin D3 2000 units daily, clopidogrel 75 mg p.o. daily, Eliquis 5 mg b.i.d., folic acid 1 mg q.a.m., isosorbide 60 mg p.o. daily, nitroglycerin 0.4 mg sublingual p.r.n. pain, omeprazole 40 mg b.i.d., AndroGel 2 pumps transdermally daily, Trelegy Ellipta 1 inhaler daily, Vitron-C 1 tablet 3 days per week, Ambien 5-10 mg p.o. at bedtime p.r.n. sleep. SPECIAL INSTRUCTIONS: Call or go to ER for worsening shortness of breath, edema, dizziness or lightheadedness occur, any defibrillator activation. Follow up with Dr. Newberry in approximately 2 weeks' time. HISTORY OF PRESENT ILLNESS: The patient is a very complex 74-year-old male whose underlying history is notable for: 1. Atherosclerotic coronary artery disease, status post inferior myocardial infarction and PTCA of the right coronary in 1995. 2. Out of hospital cardiac arrest in May of 2014 with bystander CPR and early defibrillation. 3. Pacer defibrillator implantation in May 2014. 4. Severe multivessel coronary artery disease by cardiac catheterizations, most recent in May of 2014 with poorly amenable surgical and interventional targets. 5. Ischemic cardiomyopathy. 6. Compensated class 2-3 congestive heart failure. 7. Hypertension. 8. Non-secretory pituitary adenoma. 9. Status post transsphenoidal resection, pituitary adenoma. 10. Recent onset atrial fibrillation on 10/22/2019 with poor tolerance. 11. History of descending colon colitis, possibly ischemic, 09/23/2019. The patient presents this admission having had gradual decline over the past several months, noted history of acute colitis as well as newly noted atrial fibrillation with poorly controlled ventricular response rates. The patient has had substantial decline in functional capacity after above findings and was referred this admission for initiation of antiarrhythmic therapy and subsequent conversion to sinus rhythm. For further details, refer to admission H and P. HOSPITAL COURSE: The patient was admitted to the telemetry unit. Medication adjustments made. Specifically, the patient begun on sotalol 80 mg twice per day. 1. Metoprolol discontinued. Entresto was discontinued to allow for further blood pressure response as well as given recent relatively poor tolerance of the medications since initiation. After sotalol begun, the patient was referred and underwent synchronized electrical cardioversion on 11/13/2019 with successful conversion to sinus rhythm. Medications were adjusted to those at discharge. Of note, during hospital stay, the patient received IV furosemide on 2 separate occasions for volume status overload. We will plan close clinical follow up post-hospital discharge. PHYSICAL EXAMINATION: VITAL SIGNS: At time of discharge, the patient was in sinus rhythm, rate is 80 with occasional atrial and ventricular ectopy. NECK: Thin. There is no jugular venous distention. LUNGS: Revealed diminished breath sounds and minimal crackles, but no edema. CARDIOVASCULAR: Regular with normal S1, S2. There is no audible murmur. ABDOMEN: Soft, nontender. EXTREMITIES: Without cyanosis or clubbing. There is 1+ pedal edema.
--- NOTE | 2019-11-28 16:07 | History & Physical Bridge Note ---
Date of Service November 28, 2019 History & Physical Bridge Note I have examined the patient, reviewed the History & Physical and in the interval since the performance of the History & Physical I have noted the following changes of clinical significance: no changes noted
--- NOTE | 2019-12-01 20:53 | History and Physical Report ---
DATE OF ADMISSION: 11/11/2019 ADMISSION DIAGNOSIS: Atrial flutter with poorly controlled ventricular response rate. HISTORY OF PRESENT ILLNESS: The patient is a 74-year-old male with ongoing cardiac issues to include, 1. Atherosclerotic coronary artery disease, status post inferior myocardial infarction and PTCA of the right coronary artery in 1995. 2. Out of hospital cardiac arrest in May of 2014, treated with bystander CPR and early defibrillation. 3. Pacer defibrillator implantation in May of 2014. 4. Severe multivessel coronary disease with poor surgical and interventional targets by cardiac catheterization in May of 2014 including diffusely diseased right coronary artery and occluded left anterior descending. 5. Ischemic cardiomyopathy with stable class II angina pectoris. 6. Hypertension. 7. Hyperlipidemia. 8. 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 9. History of iron deficiency anemia. 10. Acute descending colon colitis, possibly ischemic on 09/23/2019. 11. New onset AFib flutter on 10/22/2019. The patient presents for admission with anticipation of initiation of antiarrhythmic therapy and possible synchronized electrical cardioversion to gain control of patient's arrhythmias. He has had difficulties with worsening dyspnea and fatigue since 2 recent hospitalizations with increasing edema, shortness of breath, and marked fatigue. He notes no specific chest pains, notes no tachypalpitations, but feels heart rate is higher when he checks it. Notes no acute bleeding difficulties, no hematochezia, dysuria, hematuria, rash or arthritic complaints. ALLERGIES: AMOXICILLIN, GLUTEN, AND LACTOSE. MEDICATIONS: At the time of admission were metoprolol succinate 50 mg a.m., 25 mg p.m., Entresto 24-26 one tablet b.i.d., albuterol inhaler 1 puff every day p.r.n., Trelegy Ellipta inhaler 1 puff by mouth every day, Vitron-C 1 tablet every day on Sunday, Sunday and Sunday, isosorbide mononitrate 60 mg p.o. daily, Ambien 5 mg 2 tablets at bedtime p.r.n. sleep, nitroglycerin sublingually, amlodipine 2.5 mg p.o. daily, clopidogrel 75 mg p.o. every day, folic acid 1 mg p.o. daily, omeprazole 20 mg 2 capsules twice a daily, atorvastatin 80 mg p.o. daily, furosemide 40 mg every other day, Metamucil, AndroGel pump, aspirin 81 mg per day, and Eliquis 5 mg twice per day. PAST SURGICAL HISTORY: Notable for aortic and iliac repair in 2006, pacer defibrillator implantation as described in 2013, bilateral hip replacements, transsphenoidal pituitary tumor resection. FAMILY HISTORY: Not specifically notable for heart disease. SOCIAL HISTORY: The patient is a former smoker, nondrinker other than a rare alcoholic beverage. PHYSICAL EXAMINATION: GENERAL: The patient is an age appropriate male in no acute distress currently, but dyspneic with exertion and lower extremity edema present. VITAL SIGNS: Heart rate is 110, blood pressure was 140/70. HEENT: Normocephalic, atraumatic. Nares without discharge. Throat was clear. NECK: Supple without thyromegaly or lymphadenopathy. There is minimal jugular venous distention. There are no carotid bruits. LUNGS: Revealed a barrel chested configuration with diminished airflow but no rhonchi or wheeze. Pacemaker defibrillator sites without tenderness. CARDIOVASCULAR: Regularly irregular with normal S1, S2. ABDOMEN: Soft, nontender. EXTREMITIES: Without cyanosis or clubbing. There is 1-2+ lower extremity edema. IMPRESSION: A 74-year-old male with complex cardiac issues as outlined above who presents with newly observed atrial fibrillation and flutter. Has a constellation of multiple ____ atrial arrhythmias resulting in decompensated cardiac efficiency. PLAN: Will be to admit to hospital and optimize medical therapies including initiation of antiarrhythmic therapy. Will choose sotalol given underlying emphysematous lung disease, avoiding amiodarone. Ultimate goal will be to attempt to return to sinus rhythm this admission with anticipated synchronized electrical cardioversion. Given relative instability in blood pressures, Entresto will be initially held with future plans for resumption. Edema and mild volume overload will be treated with IV diuretics on initiation of therapies.
--- NOTE | 2019-12-03 05:05 | Coding Query ---
CONGESTIVE HEART FAILURE To Promote full compliance with coding requirements relating to patient care, physician participation is requested in all cases of park interpreter uncertainty. Please assist us with the following questions. A diagnosis of Congestive Heart Failure is documented in the patient's medical record. To accurately code this diagnosis and to compare patient severity, we ask that you specify the type of heart failure by placing an X within the parenthesis (x).11/11 Progress note states "patient with ischemic cardiomyopathy with onset of atrial fib and acute/chronc decompensated CHF". Thanks for your help! TONY Trevino [facility] SYSTOLIC HEART FAILURE ( ) Acute ( ) Chronic (x) Acute on Chronic ( ) Rheumatic ( ) Unknown DIASTOLIC HEART FAILURE ( ) Acute ( ) Chronic ( ) Acute on Chronic ( ) Rheumatic ( ) Unknown COMBINED SYSTOLIC AND DIASTOLIC HEART FAILURE ( ) Acute ( ) Chronic ( ) Acute on Chronic ( ) Rheumatic ( ) Unknown Was the CHF Present On Admission? Please check the appropriate box: (x ) Present on Admission ( ) Not Present On Admission ( ) Clinically undetermined MTDD
== END 2019-11-14 13:33 | disposition home or self-care (01) | DRG 308 ==
LOC: 2S 08:10

== ENCOUNTER 2020-01-10 15:31 | Inpatient (IN) ==
[2020-01-10 16:30] LABS: Basophils # (auto) 0.04 K/uL (0-0.2); Basophils % (auto) 0.6 %; Eosinophils # (auto) 0.13 K/uL (0-0.5); Eosinophils % (auto) 1.8 %; Hemoglobin 13.4 g/dL (14.0-18.0); Immature Granulocytes # (auto) 0.02 K/uL (0.00-0.02); Immature Granulocytes % (auto) 0.3 %; Lymphocytes # (auto) 0.89 K/uL (1.2-3.4); Lymphocytes % (auto) 12.4 %; Mean Corpuscular Hemoglobin 28.6 pg (25-34); Mean Corpuscular Hgb Conc 33.5 g/dL (32-36); Mean Corpuscular Volume 85.5 fL (80-100); Mean Platelet Volume 10.7 fL (7.4-10.4); Monocytes # (auto) 0.98 K/uL (0.11-0.59); Monocytes % (auto) 13.6 %; Neutrophils # (auto) 5.14 K/uL (1.4-6.5); Neutrophils % (auto) 71.3 %; Platelet Count 168 K/uL (130-400); RDW Coefficient of Variation 18.6 % (11.5-14.5); Red Blood Count 4.68 M/uL (4.7-6.1)
[2020-01-10 16:40] LABS: Albumin Level 3.3 gm/dl (3.4-5.0); BUN Creatinine Ratio 23.1 (10-20); Creatinine Clr Calc Pharmacy 53.8 ml/min; Est GFR (African American) 87.2; Est GFR (Non-African American) 75.2; Magnesium 1.8 mg/dl (1.8-2.4); Potassium 4.2 mmol/L (3.5-5.1)
[2020-01-10 16:41] LABS: INR 1.4 (0.9-1.1); Prothrombin Time 14.3 Seconds (9.0-12.0)
[2020-01-10 16:48] LABS: Appearance Urine Clear (Clear); Bilirubin Urine Negative (Negative); Blood Urine Negative (Negative); Color Urine Yellow; Glucose Urine UA Negative (Negative); Ketones Urine Negative (Negative); Leukocyte Esterase Urine Negative (Negative); Nitrite Urine Negative (Negative); Protein Urine Negative (Negative); Specific Gravity Urine 1.011 (1.000-1.030); Urobilinogen Urine Negative (Negative); pH Urine 6.5 (4.5-7.5)
[2020-01-10 16:51] LABS: Albumin Globulin Ratio 0.8 (0.9-2); Bilirubin,Total 0.7 mg/dl (0.2-1); Globulin 4.2 gm/dl (2.5-4.0); Thyroid Stimulating Hormone 0.62 uIu/ml (0.300-4.500); Total Protein 7.5 gm/dl (6.4-8.2); Troponin I 0.024 ng/ml (0-0.045)
--- NOTE | 2020-01-10 16:54 | CT Scan Report ---
CT head/brain wo con CLINICAL HISTORY: Confusion. Patient on blood thinners. COMPARISON STUDY: 08/15/2014 TECHNIQUE: Axial CT of the brain is performed from the vertex to the skull base. IV contrast was not administered for this examination. A dose lowering technique was utilized adhering to the principles of ALARA. CT DOSE: 729.78 mGycm FINDINGS: No intra or extra-axial mass lesions are visualized. There is no CT evidence of acute cortical infarc tion. There is no evidence of midline shift. There is no acute hemorrhage. No calvarial fractures ar e visualized. There are patchy white matter hypodensities likely on a small vessel basis. There is no evidence of pathologic ventricular dilatation. There are presumed postsurgical changes involving the maxillary sphenoid and ethmoid sinuses. Correla tion with prior surgery is recommended. IMPRESSION: 1. No acute intracranial findings 2. Presumed postsurgical changes involving the maxillary sphenoid and ethmoid sinuses. Correlation wi th prior surgical history is recommended to confirm this impression ACT 112: Negative or not required by law. Electronically signed by: Xander aLu M.D. 01/10/2020 4:53 PM
--- NOTE | 2020-01-10 17:41 | XRay Report ---
XR chest 1V portable CLINICAL HISTORY: weakness COMPARISON STUDY: 11/11/2019 FINDINGS: The heart is enlarged. There is a left subclavian dual-chamber central venous pacemaker. Th ere are prominent cardiophrenic angle fat pads. There is no focal pulmonary consolidation. There is n o overt failure. There are no pleural effusions.[There is underlying pulmonary emphysema. IMPRESSION: 1. Pulmonary emphysema. 2. No acute findings. ACT 112: Negative or not required by law. Electronically signed by: Xander Lau M.D. 01/10/2020 5:40 PM
--- NOTE | 2020-01-10 18:38 | Emergency Department Note ---
Entered by Lauren Ferris acting as a scribe for History of Present Illness General Chief complaint: Altered Mental Status Stated complaint: LAST 4 DAYS - CANT REMEMBER ANYTHING - PARANOID Time Seen by Provider: 01/10/20 15:59 Source: patient and friends History of Present Illness Onset (ago): day(s) 4 Pain Consistency: + constant Quality: + other (altered mental status) Relieved By: + none Exacerbated By: + medication Associated symptoms: + confusion and + other (trouble sleeping); no loss of appetite Treatments prior to arrival: none The patient is a 74 year old male who presents to the Emergency Room with complaints of altered mental status. The patient states that he has been feeling fine, but is experiencing some memory loss. The patients friend states that over the last few days, the patient has been getting increasingly confused. He states that he is experiencing, paranoia, worry, and trouble remembering. He states that he has been writing notes for himself and placing them around the house so he can remember things. The patient wrote a note complaining of urinary symptoms. This is unusual for the patient, for his friend states that he is usually put together and coherent. He complains of trouble sleeping, but denies loss of appetite. Since he has been having trouble sleeping, the patients doctor upped his Ambien medication to 10mg about a week ago. The patient was taking Ambien 5mg before this, which did help him sleep somewhat, but he tends to get groggy and sleepwalk when he takes more than 5 mg. He went into his PCP yesterday to request a change in his medication back to 5 mg, but his doctor was not in. The patient is also having issues finding his words when talking. The patient confirms that he has been taking his medicine. His friend states that he began using oxygen at home, which seemed to help his physical symptoms. The patient has a history of diabetes, ME, hypertension, and hyperlipidemia. Home Medications Home Medications Medication Instructions Recorded Confirmed Type atorvastatin 80 mg PO PM 11/13/18 01/10/20 History clopidogrel [Plavix] 75 mg PO QAM 11/13/18 01/10/20 History folic acid 1 mg PO HS 11/13/18 01/10/20 History omeprazole 40 mg PO BID 11/13/18 01/10/20 History albuterol sulfate 90 mcg/actuation 90 mcg INH Q6H PRN #1 ea 08/29/19 01/10/20 Rx breath activated powder inhaler nitroglycerin 0.4 mg sublingual 0.4 mg SL Q5M PRN 08/29/19 01/10/20 History tablet Trelegy Ellipta 1 inh INHALATION HS 09/22/19 01/10/20 History cholecalciferol (vitamin D3) 2,000 unit PO QAM 09/22/19 01/10/20 History isosorbide mononitrate 60 mg PO QAM 09/22/19 01/10/20 History zolpidem 5 mg tablet 5 - 10 mg PO HS PRN 90 Days #180 10/21/19 01/10/20 Rx tab apixaban 5 mg tablet 5 mg PO BID 12/30/19 01/10/20 History furosemide 40 mg tablet 40 mg PO QAM tab 12/30/19 01/10/20 History metoprolol succinate 50 mg 50 mg PO HS 12/30/19 01/10/20 History tablet,extended release 24 hr sotalol 80 mg tablet 80 mg PO BID 12/30/19 01/10/20 History spironolactone 25 mg tablet 25 mg PO BID #60 tab 12/30/19 01/10/20 Rx losartan 25 mg PO HS 01/10/20 01/10/20 History testosterone [AndroGel] 2 pump TRANSDERMAL QAM 01/10/20 01/10/20 History Allergies Allergy/AdvReac Type Severity Reaction Status Date / Time amoxicillin Allergy Mild RASH/ITCHIN Verified 01/10/20 17:07 G lactose AdvReac Intermediate GI SYMPTOMS Verified 01/10/20 17:07 benzalkonium chloride AdvReac Mild ITCHING/SWE Verified 01/10/20 17:07 LLING/RASH gluten AdvReac Unknown gluten Verified 01/10/20 17:07 intolerant per EGD Past Med/Surg History Medical History Arthritis Diabetes Emphysema of lung GERD (gastroesophageal reflux disease) Hyperlipidemia Hypertension ICD (implantable cardioverter-defibrillator) in place medtronic [address] Newberry Ischemic cardiomyopathy Ischemic colitis Migraine Myocardial Infarction most recent 2013, adjust med and icd inserted Pituitary adenoma removal of adenoma from pituitary 2016 Ventricular tachycardia Surgical History H/O hand surgery Right hand tendon repair History of abdominal aortic aneurysm (AAA) repair 2006 History of cardiac defibrillator placement May 2014 History of pituitary surgery August 2016 History of total hip arthroplasty right and left Hx of [id number] bypass right and left leg Family History Mother , at age 46 Breast cancer Other Cancer Denies family history of Ovarian cancer Prostate cancer Myocardial infarction Colorectal cancer Social History Preferred Language: Divehi Communication Ability: Effective Visual Impairment: No Limitations Hearing Ability: Normal Community Worker Required: No Beliefs That Will Affect Care: None marital status: Single Current Living Situation: Alone current occupational status: retired Other Information That Helps Us Care for You: No Feels Safe at Home: Yes Safety Concerns: Feels Safe At This Time Smoking Status: Former smoker Age Started Using Tobacco: 19 ; Age Quit Using Tobacco: 61 ; packs per day: 1.5 ; Cigarettes Per Day: 20-40 ; Do You Dip or Chew Tobacco: No ; Number of Years Since Quit: 13 ; Second Hand Exposure: No ; Tobacco Cessation Education Requested by Patient: No Hx Alcohol Use: Yes Alcohol type: hard liquor Alcohol Intake Frequency: Holidays/Special Occasions Hx Substance Use: No Childhood Exposure to Second-Hand Smoke: No Dental Care, Regularly: Yes Physical Activity Frequency: 3-4 Times per Week Seatbelt Use: always Sunscreen Use: Yes Review of Systems See HPI for pertinent positives & negatives. and A total of 10 systems reviewed and were otherwise negative Physical Exam Vital Signs Vital Signs - 24 hr 01/10/20 15:38 01/10/20 16:32 01/10/20 17:10 Temperature 36.6 C Temperature Source Oral Pulse Rate 80 70 79 Pulse Rate [Finger] Pulse Rate from SpO2 Sensor 69 Respiratory Rate 18 23 20 Respiratory Effort / Characteristics Non-Labored Spontaneous Respiratory Depth Normal Respiratory Pattern Regular Blood Pressure 120/79 109/72 Blood Pressure [Right Arm] Blood Pressure Mean 92 75 Blood Pressure Mean [Right Arm] Blood Pressure Position Sitting Pulse Oximetry 94 94 Oxygen Delivery Method Room Air Room Air Oxygen Flow Rate Sepsis Recent Fever Within 48 Hours No Sepsis New/Unexplained Change in Mental Status No Sepsis Action Taken by Nursing No Action Required 01/10/20 18:16 01/10/20 18:48 01/10/20 18:49 Temperature Temperature Source Pulse Rate 87 Pulse Rate [Finger] Pulse Rate from SpO2 Sensor 101 H 85 Respiratory Rate 21 Respiratory Effort / Characteristics Respiratory Depth Respiratory Pattern Blood Pressure 96/63 L 130/87 Blood Pressure [Right Arm] Blood Pressure Mean 65 92 Blood Pressure Mean [Right Arm] Blood Pressure Position Pulse Oximetry 99 99 Oxygen Delivery Method Oxygen Flow Rate Sepsis Recent Fever Within 48 Hours Sepsis New/Unexplained Change in Mental Status Sepsis Action Taken by Nursing 01/10/20 18:50 01/10/20 18:55 01/10/20 18:59 Temperature Temperature Source Pulse Rate 81 74 Pulse Rate [Finger] Pulse Rate from SpO2 Sensor 82 73 Respiratory Rate 19 Respiratory Effort / Characteristics Respiratory Depth Respiratory Pattern Blood Pressure 109/68 104/75 Blood Pressure [Right Arm] Blood Pressure Mean 72 86 Blood Pressure Mean [Right Arm] Blood Pressure Position Pulse Oximetry 99 96 Oxygen Delivery Method Oxygen Flow Rate Sepsis Recent Fever Within 48 Hours Sepsis New/Unexplained Change in Mental Status Sepsis Action Taken by Nursing 01/10/20 19:00 01/10/20 19:02 01/10/20 19:10 Temperature Temperature Source Pulse Rate 74 74 80 Pulse Rate [Finger] 74 Pulse Rate from SpO2 Sensor 69 71 80 Respiratory Rate 20 Respiratory Effort / Characteristics Non-Labored Spontaneous Respiratory Depth Normal Respiratory Pattern Blood Pressure 102/72 Blood Pressure [Right Arm] 102/72 Blood Pressure Mean 82 Blood Pressure Mean [Right Arm] 82 Blood Pressure Position Pulse Oximetry 100 100 98 Oxygen Delivery Method Non-rebreather Oxygen Flow Rate Sepsis Recent Fever Within 48 Hours Sepsis New/Unexplained Change in Mental Status Sepsis Action Taken by Nursing 01/10/20 19:20 01/10/20 19:23 01/10/20 19:44 Temperature Temperature Source Pulse Rate 79 Pulse Rate [Finger] 74 78 Pulse Rate from SpO2 Sensor 75 Respiratory Rate 20 20 Respiratory Effort / Characteristics Non-Labored Spontaneous Non-Labored Spontaneous Respiratory Depth Normal Normal Respiratory Pattern Blood Pressure 100/69 Blood Pressure [Right Arm] 100/69 114/73 Blood Pressure Mean 79 Blood Pressure Mean [Right Arm] 79 86 Blood Pressure Position Pulse Oximetry 98 98 96 Oxygen Delivery Method Nasal Cannula Nasal Cannula Oxygen Flow Rate 2 2 Sepsis Recent Fever Within 48 Hours Sepsis New/Unexplained Change in Mental Status Sepsis Action Taken by Nursing GENERAL: Awake, alert, well-appearing, in no distress HENT: Normocephalic, atraumatic. EYES: Normal conjunctiva. Sclera non-icteric. NECK: Supple. No nuchal rigidity. RESPIRATORY: Clear to auscultation. No wheezes. Normal respiratory effort. CARDIAC: Normal rate. Normal rhythm. Extremities warm and well perfused. L upper chest AICD GI: Soft, non-distended. No tenderness to palpation. RECTAL: Deferred. MUSCULOSKELETAL: Atraumatic. Chest examination reveals no tenderness. LOWER EXTREMITIES: Calves are equal size bilaterally and non-tender. No edema NEURO: Normal sensorium. No sensory or motor deficits noted. No facial droop. SKIN: Warm and dry. No jaundice noted. NEURO: Tangential speech and thoughts. Mild short term memory deficits. Course Course 160: Past medical records reviewed. The patient was evaluated in room C09. A complete history and physical exam was performed. 1803: I rechecked on the patient and updated him on tests and imaging results. I discussed the possibility of staying in the hospital for further evaluation. The patient was agreeable to this treatment plan. 1820: I spoke to Dr. Estrella, [facility] hospitalist, who agreed to take over care of the patient. The patient is agreeable to this and will stay for further evaluation. Administered Medications Apixaban (Eliquis) 5 mg PO BID ALEJANDRA Stop: 02/09/20 20:59 Last Admin: 01/10/20 22:01 Dose: 5 mg Documented by: [id number] Atorvastatin Calcium (Lipitor) 80 mg PO PM ALEJANDRA Stop: 02/09/20 20:59 Last Admin: 01/10/20 22:00 Dose: 80 mg Documented by: [id number] Fluticasone Furoate (Arnuity Ellipta 100mcg) 1 puffs INH HS ALEJANDRA Stop: 02/09/20 21:29 Last Admin: 01/10/20 22:03 Dose: 1 puffs Documented by: [id number] Folic Acid (Folvite) 1 mg PO HS ALEJANDRA Stop: 02/09/20 20:59 Last Admin: 01/10/20 21:59 Dose: 1 mg Documented by: [id number] Levetiracetam 500 mg/ Dextrose 105 mls @ 440 mls/hr IV BID ALEJANDRA Stop: 02/09/20 20:59 Last Infusion: 01/10/20 22:15 Dose: 0 mls/hr Documented by: [id number] Admin: 01/10/20 21:58 Dose: 440 mls/hr Documented by: [id number] Sodium Chloride (Nss 1000ml) 1,000 mls @ 70 mls/hr IV .[id number] ALEJANDRA Stop: 02/09/20 20:31 Last Admin: 01/10/20 22:04 Dose: 70 mls/hr Documented by: [id number] Thiamine HCl 100 mg/ Syringe 10 mls @ 2 mls/min IV QAM ALEJANDRA Stop: 02/09/20 20:31 Last Admin: 01/10/20 21:58 Dose: 2 mls/min Documented by: [id number] Folic Acid 1 mg/ Syringe 10 mls @ 5 mls/min IV QAM [facility] Stop: 02/09/20 20:31 Last Admin: 01/10/20 21:58 Dose: 5 mls/min Documented by: [id number] Metoprolol Succinate (Toprol Xl) 50 mg PO [facility] Stop: 02/09/20 20:59 Last Admin: 01/10/20 22:00 Dose: 50 mg Documented by: [id number] Pantoprazole Sodium (Protonix) 40 mg PO BID ALEJANDRA Stop: 02/09/20 20:59 Last Admin: 01/10/20 22:01 Dose: 40 mg Documented by: [id number] Sotalol HCl (Betapace) 80 mg PO BID ALEJANDRA Stop: 02/09/20 20:59 Last Admin: 01/10/20 21:59 Dose: 80 mg Documented by: [id number] Umeclidinium/Vilanterol (Anoro Ellipta 62.5/25 Mcg Inh) 1 puffs INH [facility] Stop: 02/09/20 21:29 Last Admin: 01/10/20 22:03 Dose: 1 puffs Documented by: [id number] Discontinued Medications Lorazepam (Ativan) 1 mg in 2 mls @ 2 mls/min IV NOW STA Stop: 01/10/20 18:52 Last Admin: 01/10/20 18:51 Dose: 2 mls/min Documented by: [id number] Levetiracetam 1,000 mg/ (Dextrose) 110 mls @ 440 mls/hr IV NOW STA Stop: 01/10/20 19:12 Last Infusion: 01/10/20 19:30 Dose: 0 mls/hr Documented by: [id number] Admin: 01/10/20 19:14 Dose: 440 mls/hr Documented by: [id number] Multivitamins 10 ml/ Thiamine HCl 100 mg/ Folic Acid 1 mg/Sodium Chloride 1,0 11.2 mls @ 500 mls/hr IV .Q2H2M ONE Stop: 01/10/20 22:33 Last Admin: 01/10/20 21:58 Dose: 500 mls/hr Documented by: [id number] Lorazepam (Ativan) Confirm Administered Dose 2 mg .ROUTE .STK-MED ONE Stop: 01/10/20 18:48 Last Admin: 01/10/20 19:23 Dose: Not Given Documented by: [id number] Miscellaneous () Confirm Administered Dose 1 ea .ROUTE .STK-MED ONE Stop: 01/10/20 18:54 Last Admin: 01/10/20 19:28 Dose: Not Given Documented by: [id number] Medical Decision Making Differential Diagnosis Differential diagnosis includes: metabolic, infection, hypoglycemia, electrolyte abnormalities, cardiac sources, intracerebral event, toxicologic, neurologic, as well as others were entertained. Medical Records Attestation: I reviewed the patient's medical records. Home Medications Current Medication List: was personally reviewed by me Laboratory Data Attestation: I reviewed the patient's lab results. Result diagrams: 01/10/20 16:05 01/10/20 16:05 Lab Results 01/10/20 01/10/20 01/10/20 Range/Units 15:51 16:05 16:05 WBC 7.20 (4.8-10.8) K/uL RBC 4.68 L (4.7-6.1) M/uL Hgb 13.4 L (14.0-18.0) g/dL Hct 40.0 L (42-52) % MCV 85.5 (80-100) fL MCH 28.6 (25-34) pg MCHC 33.5 (32-36) g/dL RDW Std Deviation 58.0 H (36.4-46.3) fL RDW Coeff of Dena 18.6 H (11.5-14.5) % Plt Count 168 (130-400) K/uL MPV 10.7 H (7.4-10.4) fL Immature Gran % (Auto) 0.3 % Neut % (Auto) 71.3 % Lymph % (Auto) 12.4 % [place] % (Auto) 13.6 % Eos % (Auto) 1.8 % Baso % (Auto) 0.6 % Immature Gran # (Auto) 0.02 (0.00-0.02) K/uL Neut # (Auto) 5.14 (1.4-6.5) K/uL Lymph # (Auto) 0.89 L (1.2-3.4) K/uL [place] # (Auto) 0.98 H (0.11-0.59) K/uL Eos # (Auto) 0.13 (0-0.5) K/uL Baso # (Auto) 0.04 (0-0.2) K/uL PT 14.3 H (9.0-12.0) Seconds INR 1.4 H (0.9-1.1) Sodium (136-145) mmol/L Potassium (3.5-5.1) mmol/L Chloride (98-107) mmol/L Carbon Dioxide (21-32) mmol/L Anion Gap (3-11) BUN (7-18) mg/dl Creatinine (0.6-1.4) mg/dl Est Cr Clr Drug Dosing ml/min Est GFR ( Amer) Est GFR (Non-Af Amer) BUN/Creatinine Ratio (10-20) Glucose (70-99) mg/dl POC Glucose 105 H (70-99) mg/dl Calcium (8.5-10.1) mg/dl Magnesium (1.8-2.4) mg/dl Total Bilirubin (0.2-1) mg/dl AST (15-37) U/L ALT (12-78) U/L Alkaline Phosphatase (45-117) U/L Troponin I (0-0.045) ng/ml Total Protein (6.4-8.2) gm/dl Albumin (3.4-5.0) gm/dl Globulin (2.5-4.0) gm/dl Albumin/Globulin Ratio (0.9-2) TSH (0.300-4.500) uIu/ml Random Cortisol mcg/dl Urine Color Urine Appearance (Clear) Urine pH (4.5-7.5) Ur Specific Odd (1.000-1.030) Urine Protein (Negative) Urine Glucose (UA) (Negative) Urine Ketones (Negative) Urine Blood (Negative) Urine Nitrite (Negative) Urine Bilirubin (Negative) Urine Urobilinogen (Negative) Ur Leukocyte Esterase (Negative) Urine Opiates Screen (Neg) Ur Methadone, Qual (Neg) Urine Barbiturates (Neg) Ur Phencyclidine (PCP) (Neg) U Amphetamin/Meth Scrn (Neg) MDMA (Ecstasy) Screen (Neg) U Benzodiazepines Scrn (Neg) Ur Cocaine Metabolite (Neg) U Marijuana (THC) Screen (Neg) 01/10/20 01/10/20 01/10/20 Range/Units 16:05 16:05 16:30 WBC (4.8-10.8) K/uL RBC (4.7-6.1) M/uL Hgb (14.0-18.0) g/dL Hct (42-52) % MCV (80-100) fL MCH (25-34) pg MCHC (32-36) g/dL RDW Std Deviation (36.4-46.3) fL RDW Coeff of Dena (11.5-14.5) % Plt Count (130-400) K/uL MPV (7.4-10.4) fL Immature Gran % (Auto) % Neut % (Auto) % Lymph % (Auto) % [place] % (Auto) % Eos % (Auto) % Baso % (Auto) % Immature Gran # (Auto) (0.00-0.02) K/uL Neut # (Auto) (1.4-6.5) K/uL Lymph # (Auto) (1.2-3.4) K/uL [place] # (Auto) (0.11-0.59) K/uL Eos # (Auto) (0-0.5) K/uL Baso # (Auto) (0-0.2) K/uL PT (9.0-12.0) Seconds INR (0.9-1.1) Sodium 136 (136-145) mmol/L Potassium 4.2 (3.5-5.1) mmol/L Chloride 103 (98-107) mmol/L Carbon Dioxide 26 (21-32) mmol/L Anion Gap 7.0 (3-11) BUN 23 H (7-18) mg/dl Creatinine 0.99 (0.6-1.4) mg/dl Est Cr Clr Drug Dosing 53.8 ml/min Est GFR ( Amer) 87.2 Est GFR (Non-Af Amer) 75.2 BUN/Creatinine Ratio 23.1 H (10-20) Glucose 100 H (70-99) mg/dl POC Glucose (70-99) mg/dl Calcium 9.0 (8.5-10.1) mg/dl Magnesium 1.8 (1.8-2.4) mg/dl Total Bilirubin 0.7 (0.2-1) mg/dl AST 25 (15-37) U/L ALT 26 (12-78) U/L Alkaline Phosphatase 125 H (45-117) U/L Troponin I 0.024 (0-0.045) ng/ml Total Protein 7.5 (6.4-8.2) gm/dl Albumin 3.3 L (3.4-5.0) gm/dl Globulin 4.2 H (2.5-4.0) gm/dl Albumin/Globulin Ratio 0.8 L (0.9-2) TSH 0.620 (0.300-4.500) uIu/ml Random Cortisol 13.79 mcg/dl Urine Color Yellow Urine Appearance Clear (Clear) Urine pH 6.5 (4.5-7.5) Ur Specific Odd 1.011 (1.000-1.030) Urine Protein Negative (Negative) Urine Glucose (UA) Negative (Negative) Urine Ketones Negative (Negative) Urine Blood Negative (Negative) Urine Nitrite Negative (Negative) Urine Bilirubin Negative (Negative) Urine Urobilinogen Negative (Negative) Ur Leukocyte Esterase Negative (Negative) Urine Opiates Screen (Neg) Ur Methadone, Qual (Neg) Urine Barbiturates (Neg) Ur Phencyclidine (PCP) (Neg) U Amphetamin/Meth Scrn (Neg) MDMA (Ecstasy) Screen (Neg) U Benzodiazepines Scrn (Neg) Ur Cocaine Metabolite (Neg) U Marijuana (THC) Screen (Neg) 01/10/20 Range/Units 16:30 WBC (4.8-10.8) K/uL RBC (4.7-6.1) M/uL Hgb (14.0-18.0) g/dL Hct (42-52) % MCV (80-100) fL MCH (25-34) pg MCHC (32-36) g/dL RDW Std Deviation (36.4-46.3) fL RDW Coeff of Dena (11.5-14.5) % Plt Count (130-400) K/uL MPV (7.4-10.4) fL Immature Gran % (Auto) % Neut % (Auto) % Lymph % (Auto) % [place] % (Auto) % Eos % (Auto) % Baso % (Auto) % Immature Gran # (Auto) (0.00-0.02) K/uL Neut # (Auto) (1.4-6.5) K/uL Lymph # (Auto) (1.2-3.4) K/uL [place] # (Auto) (0.11-0.59) K/uL Eos # (Auto) (0-0.5) K/uL Baso # (Auto) (0-0.2) K/uL PT (9.0-12.0) Seconds INR (0.9-1.1) Sodium (136-145) mmol/L Potassium (3.5-5.1) mmol/L Chloride (98-107) mmol/L Carbon Dioxide (21-32) mmol/L Anion Gap (3-11) BUN (7-18) mg/dl Creatinine (0.6-1.4) mg/dl Est Cr Clr Drug Dosing ml/min Est GFR ( Amer) Est GFR (Non-Af Amer) BUN/Creatinine Ratio (10-20) Glucose (70-99) mg/dl POC Glucose (70-99) mg/dl Calcium (8.5-10.1) mg/dl Magnesium (1.8-2.4) mg/dl Total Bilirubin (0.2-1) mg/dl AST (15-37) U/L ALT (12-78) U/L Alkaline Phosphatase (45-117) U/L Troponin I (0-0.045) ng/ml Total Protein (6.4-8.2) gm/dl Albumin (3.4-5.0) gm/dl Globulin (2.5-4.0) gm/dl Albumin/Globulin Ratio (0.9-2) TSH (0.300-4.500) uIu/ml Random Cortisol mcg/dl Urine Color Urine Appearance (Clear) Urine pH (4.5-7.5) Ur Specific Odd (1.000-1.030) Urine Protein (Negative) Urine Glucose (UA) (Negative) Urine Ketones (Negative) Urine Blood (Negative) Urine Nitrite (Negative) Urine Bilirubin (Negative) Urine Urobilinogen (Negative) Ur Leukocyte Esterase (Negative) Urine Opiates Screen Neg (Neg) Ur Methadone, Qual Neg (Neg) Urine Barbiturates Neg (Neg) Ur Phencyclidine (PCP) Neg (Neg) U Amphetamin/Meth Scrn Neg (Neg) MDMA (Ecstasy) Screen Neg (Neg) U Benzodiazepines Scrn Neg (Neg) Ur Cocaine Metabolite Neg (Neg) U Marijuana (THC) Screen Neg (Neg) Imaging Data Radiologist's Impression: Radiology results as stated below per my review and the radiologist's interpretation: CT head/brain wo con CLINICAL HISTORY: Confusion. Patient on blood thinners. COMPARISON STUDY: 08/15/2014 TECHNIQUE: Axial CT of the brain is performed from the vertex to the skull base. IV contrast was not administered for this examination. A dose lowering technique was utilized adhering to the principles of ALARA. CT DOSE: 729.78 mGycm FINDINGS: No intra or extra-axial mass lesions are visualized. There is no CT evidence of acute cortical infarction. There is no evidence of midline shift. There is no acute hemorrhage. No calvarial fractures are visualized. There are patchy white matter hypodensities likely on a small vessel basis. There is no evidence of pathologic ventricular dilatation. There are presumed postsurgical changes involving the maxillary sphenoid and ethmoid sinuses. Correlation with prior surgery is recommended. IMPRESSION: 1. No acute intracranial findings 2. Presumed postsurgical changes involving the maxillary sphenoid and ethmoid sinuses. Correlation with prior surgical history is recommended to confirm this impression ACT 112: Negative or not required by law. Electronically signed by: Xander Lau M.D. 01/10/2020 4:53 PM XR chest 1V portable CLINICAL HISTORY: weakness COMPARISON STUDY: 11/11/2019 FINDINGS: The heart is enlarged. There is a left subclavian dual-chamber central venous pacemaker. There are prominent cardiophrenic angle fat pads. There is no focal pulmonary consolidation. There is no overt failure. There are no pleural effusions.[There is underlying pulmonary emphysema. IMPRESSION: 1. Pulmonary emphysema. 2. No acute findings. ACT 112: Negative or not required by law. Electronically signed by: Xander Lau M.D. 01/10/2020 5:40 PM ECG Data Attestation: I personally reviewed and interpreted this ECG as follows: Indication: + altered mental status Rate (beats per minute): 72 Rhythm: + normal sinus ECG [place]: + Normal ECG ST segments: no ST depression and no ST elevation ECG Findings: no PVCs Blood Pressure Blood Pressure Findings: Normal blood pressure Blood Pressure Disposition: further management by hospitalist [place] Narrative Continuous Cardiac Monitoring: An order was placed for continuous cardiac monitoring. The monitor shows a rate of 72 with normal sinus rhythm. Patient is a 74-year-old gentleman history of hypertension, GERD, atrial fibrillation, ischemic cardiopathy ICD presenting today with reports of increased confusion and memory issues over the last 4 days. Patient's friend reports that it seems like he is not himself and may be acting a bit paranoid. He is been making lists and putting things around his house. Wakes in the morning finding things moved around the house and food made; question if this could be related to Ambien. No fevers other trauma reported. Patient is significantly on Eliquis. No history of similar. Some insomnia reported. Has been using Ambien for some time but increase the dose of 10 days ago so to around 10 mg instead of taking 5 space throughout the night several times. Patient states he is trying to be in contact with his primary doctor regarding this. Patient is very tangential and circumstantial in discussion. No acute focal deficits grossly appreciated move all extremities denies complaint other than stating that he seems to be urinating different than before. Has had some change in his diuretics. CBC is unremarkable without leukocytosis and baseline mild anemia. Renal function electrolytes without significant abnormality I doubt this represents hepatic encephalopathy or hypercarbia as he does not seem sedated at all. Unsure if this could represent possible UTI. Urinalysis however is quite convincingly negative. Infectious and metabolic sources were evaluated for. CT the head was completed. Postsurgical changes but no other acute findings. Doubt sepsis. EKG without significant change her troponin is not significantly elevated. Doubt this is cardiac in nature. This could be related again to possible medication issues versus some delirium versus an occult CVA (frontal lobe component?). Patient states he has had MRIs before at [facility]. Does have an AICD and unsure of compatibility. Given that he lives alone and having a change in status in any event would recommend that he be observed here overnight to see if his symptoms improve with holding the medication or if further elucidation of underlying pathology can be found. Hospitalist contacted. During the hospitalist evaluation in the emergency department patient had a brief seizure-like event. Patient was given a milligram of Ativan. Was postictal afterwards. Moved to resuscitation room. Nasal airway was placed by myself uncomplicated in the left nare. No oxygen desaturations were noted. Chasidy calvillo's mental status gradually over the course of 5 to 10 minutes improved and he can answer some questions. Will defer intubation at this time. Loaded with a gram of Keppra. Doubt this represents meningitis. Patient is a history of brain surgery and MRI can be considered if he is able to be cleared regards to the pacemaker. Again patient requires admission. No prior history of seizures noted. Impression & Plan Confusion, Insomnia, Seizure Discharge Plan Visit Data *Final* Discharge Date/Time: 01/10/20 20:13 Chief Complaint: Altered Mental Status Stated Complaint: LAST 4 DAYS - CANT REMEMBER ANYTHING - PARANOID ED Provider: Daron Hare Discharge Problem: Confusion, Insomnia, Seizure Patient Disposition: Admitted As Inpatient Discharge Instructions Interventions: ED Discharge Assessment Last Done: 01/10/20 20:13 Discharge Problem: Insomnia Qualifiers: Insomnia type: unspecified Qualified Code(s): G47.00 - Insomnia, unspecified The scribe's documentation has been prepared under my direction and personally reviewed by me in its entirety. I confirm that the note above accurately ref lects all work, treatment, procedures, and medical decision making performed by me.
[2020-01-10] MEDS ORDERED: LORazepam 2 MG/4 ML VIAL ONE (18:47)
[2020-01-10] MEDS ORDERED: LORazepam 1 MG/2 ML VIAL IV STA (18:51)
[2020-01-10] MEDS ORDERED: RAPID SEQUENCE INDUCTION BAG ONE (18:53)
--- NOTE | 2020-01-10 19:42 | History & Physical Report ---
Date of Service January 10, 2020 Assessment & Plan (1) Confusion: Presented with worsening confusion, paranoia, and possible hallucinations over the previous 4 days. Does drink EtOH regularly as per his friend and did not drink much the last 2-3 days prior to admission Had a generalized witnessed seizure in the ER by myself and ER MD CT head noncon negative, CXR negative for acute Has a h/o pituitary adenoma resection Urine tox screen negative, BMP unremarkable, NH3 only minimally elevated at 34, random cortisol 13, CBC mild anemia, UA normal Afebrile, no evidence of infection TSH normal -possibility of brain mass or lesion causing confusion, medication overuse of Ambien as well, and EtOH withdrawal -check brain MRI -consult Neuro as below for seizure -hold Ambien -continue NPO for now and give gentle IVFs with NS at 70mL/hr (2) Seizure: Witnessed generalized seizure in ER lasting 1 minute, had post-ictal period Was given IV ativan and loaded with Keppra 1000mg IV x 1 CT head neg as above With h/o pituitary resection Possibility of medication related, EtOH withdrawal as above No signs or symptoms of meningitis or infectious encephalitis Cannot do LP as he is taking Eliquis and Plavix as well as ASA -check brain MRI-await Medtronic Rep tomorrow for pacer/ICD -seizure precautions -continue Keppra 500mg IV bid -ativan prn seizures -alcohol withdrawal protocol -Consult Neuro (3) Insomnia: Chronic Takes Ambien 5mg q4 hrs hs Has tried trazodone and mirtazapine in the past as per PCP notes without success -hold Ambien for confusion as above (4) ICD (implantable cardioverter-defibrillator) in place: in place for secondary prevention--> has had 2 VT arrests (5) Atrial fibrillation: Paroxysmal Had sotalol loading and DCCV 10/[address] Newberry At that time, Toprol XL was discontinued-looks like he has been filling it and taking it at outpt pharmacy--> will discontinue now -continue sotalol 80mg po bid -continue ELiquis 5mg po bid In NSR here on ECG -tele monitoring (6) Ischemic cardiomyopathy: LVEF 35%, known severe CAD -not volume overloaded currently -holding aldactone, lasix, losartan for hypotension s/p seizure and IV ativan -restart if taking po and BPs can tolerate -I/Os, daily weights -low Na+ diet once taking po -giving gentle IVFs now with NS given NPO status (7) GERD (gastroesophageal reflux disease): with h/o Barretts -continue PPI (8) Hyperlipidemia: continue statin (9) Hypertension: BPs low after seizure -hold home losartan, lasix, aldactone (10) Emphysema of lung: Severe lung disease, now recently on home O2, with long h/o smoking Continue home inhalers, O2 hs (11) Pituitary adenoma: s/p resection (partial) at [facility] 2016 Followed with brain MRIs annually although admits he did not have it in 2019 -continue Androgel Continue annual follow up on labs, TSH normal here Cortisol random 13 -check brain MRI as above (12) CAD (coronary artery disease), [place] coronary artery: Known severe multivessel disease, s/p PTCA RCA in 1995 after inferio CO -continue Plavix, Eliquis, ASA (13) Chronic systolic CHF (congestive heart failure): as above (14) Chronic respiratory failure with hypoxia: continue O2 at 2LNC hs and as needed (15) Alcohol abuse: Drinks 2-3 bourbons daily estimated by friend Did not drink much the last few days prior to admission Possibility of EtOH withdrawal as above -AWSS scale, ativan prn -give Banana bag x 1 now -continue IV folic acid and IV thiamine in the AM -check B12, folate levels (16) PAD (peripheral artery disease): with h/o repaired ruptured AAA and hqzjv-yortm-ywp bypass -continue DAPT, statin (17) Celiac disease: will need gluten free diet when eating (18) Anemia: hgb mildly low 12-13, MCV normal, could be mixed picture Is on Eliquis and DAPT -check B12, folate, iron studies Hemoccult stool (19) Thrombocytopenia: plts normal here but have been low around 100 in the past frequently -suspect EtOH use contributing, possible liver disease, or B12 deficiency -checking B12 Follow CBC (20) DVT prophylaxis: Chantal Dispo-admit to PCU FULL CODE as per previous admissions, pt unable to reliably tell me his wishes, friend Williams Martinez # [phone] is his closest friend and POA and provides most of history, however he believes the patient's brother in [place] is the HCPOA. He will touch base with the brother and get HCPOA paperwork and confirm code status History of Present Illness This pt is a 74 yo male with an extensive h/o cardiac arrest x 2 s/p ICD, CAD s/p PTCA to RCA 1995, AAA rupture w/ repair, PAF on Eliquis,ischemic CM/chronic systolic CHF with EF 35%, GERD, EtOH abuse, HL, HTN,COPD, gout, DMII, chronic respiratory failure with hypoxia, insomnia, ischemic colitis, celiac disease and h/o pituitary adenoma with resection who presents with confusion x 4 days, worse in the last 2 days as per his friend. He has been acting erratically, paranoid, forgetful, and even called 911 as he thought someone was trying to break into his house last night all as per his friend's history. All of these things are completely out of character for him. When I went to see him in the ER, he was quite confused, claimed he had not slept in 4 days. He then went on to have a witnessed generalized tonic clonic seizure in front of me group home through my Neuro exam. Prior to that he denied fevers, headache, recent illness, no CP or SOB, no abd pain. +constipation but no diarrhea. He was treated with IV ativan , loaded with IV Keppra and had a post-ictal period. After he was more alert after the seizure, he remained confused and tangential as before, but was still able to rapidly recall his best friend's phone number for me to call. Neuro was consulted from the ER and I discussed the case with Dr. Vaz His friend later reported to me that he drinks 2-3 bourbon drinks daily and over the last few days was not drinking anything. Primary Care Provider: Quirino Hensley MD Allergies Allergy/AdvReac Type Severity Reaction Status Date / Time amoxicillin Allergy Mild RASH/ITCHIN Verified 01/10/20 17:07 G lactose AdvReac Intermediate GI SYMPTOMS Verified 01/10/20 17:07 benzalkonium chloride AdvReac Mild ITCHING/SWE Verified 01/10/20 17:07 LLING/RASH gluten AdvReac Unknown gluten Verified 01/10/20 17:07 intolerant per EGD Home Medications Home Medications Medication Instructions Recorded Confirmed Type atorvastatin 80 mg PO PM 11/13/18 01/10/20 History clopidogrel [Plavix] 75 mg PO QAM 11/13/18 01/10/20 History folic acid 1 mg PO HS 11/13/18 01/10/20 History omeprazole 40 mg PO BID 11/13/18 01/10/20 History albuterol sulfate 90 mcg/actuation 90 mcg INH Q6H PRN #1 ea 08/29/19 01/10/20 Rx breath activated powder inhaler nitroglycerin 0.4 mg sublingual 0.4 mg SL Q5M PRN 08/29/19 01/10/20 History tablet Trelegy Ellipta 1 inh INHALATION HS 09/22/19 01/10/20 History cholecalciferol (vitamin D3) 2,000 unit PO QAM 09/22/19 01/10/20 History isosorbide mononitrate 60 mg PO QAM 09/22/19 01/10/20 History zolpidem 5 mg tablet 5 - 10 mg PO HS PRN 90 Days #180 10/21/19 01/10/20 Rx tab apixaban 5 mg tablet 5 mg PO BID 12/30/19 01/10/20 History furosemide 40 mg tablet 40 mg PO QAM tab 12/30/19 01/10/20 History metoprolol succinate 50 mg 50 mg PO HS 12/30/19 01/10/20 History tablet,extended release 24 hr sotalol 80 mg tablet 80 mg PO BID 12/30/19 01/10/20 History spironolactone 25 mg tablet 25 mg PO BID #60 tab 12/30/19 01/10/20 Rx aspirin 81 mg PO DAILY 01/10/20 01/10/20 History losartan 25 mg PO HS 01/10/20 01/10/20 History testosterone [AndroGel] 2 pump TRANSDERMAL QAM 01/10/20 01/10/20 History Past Med/Surg History Medical History (Updated 01/10/20 @ 23:20 by Yolis Estrella MD) Alcohol abuse Anemia Arthritis CAD (coronary artery disease), [place] coronary artery Celiac disease Chronic respiratory failure with hypoxia Chronic systolic CHF (congestive heart failure) Diabetes Emphysema of lung GERD (gastroesophageal reflux disease) Gout Hyperlipidemia Hypertension ICD (implantable cardioverter-defibrillator) in place medtronic [address] Newberry Ischemic cardiomyopathy Ischemic colitis Migraine Myocardial Infarction most recent 2013, adjust med and icd inserted Non-ST elevation CO (NSTEMI) (Inactive) PAD (peripheral artery disease) Pituitary adenoma removal of adenoma from pituitary 2016 Thrombocytopenia Unstable angina (Inactive) Ventricular tachycardia Surgical History H/O hand surgery Right hand tendon repair History of abdominal aortic aneurysm (AAA) repair 2006 History of cardiac defibrillator placement May 2014 History of pituitary surgery August 2016 History of total hip arthroplasty right and left Hx of jmzav-hbmua-pnlsiea bypass right and left leg Family History Mother , at age 46 Breast cancer Other Cancer Denies family history of Ovarian cancer Prostate cancer Myocardial infarction Colorectal cancer Social History Preferred Language: Pashto Communication Ability: Effective Visual Impairment: No Limitations Hearing Ability: Normal Parole Board Member Required: No Beliefs That Will Affect Care: None marital status: marital status details: no children Current Living Situation: Alone current occupational status: retired Other Information That Helps Us Care for You: No Feels Safe at Home: Yes Safety Concerns: Feels Safe At This Time Smoking Status: Former smoker Age Started Using Tobacco: 19 ; Age Quit Using Tobacco: 61 ; packs per day: 1.5 ; Cigarettes Per Day: 20-40 ; Do You Dip or Chew Tobacco: No ; Number of Years Since Quit: 13 ; Second Hand Exposure: No ; Tobacco Cessation Education Requested by Patient: No Hx Alcohol Use: Yes Alcohol type: hard liquor Alcohol Intake Frequency: Daily Alcohol Intake Frequency Comment: 2-3 bourbons daily Hx Substance Use: No Childhood Exposure to Second-Hand Smoke: No Dental Care, Regularly: Yes Physical Activity Frequency: 3-4 Times per Week Seatbelt Use: always Sunscreen Use: Yes Review of Systems Review of Systems: All systems reviewed & are unremarkable except as noted in HPI & below Denies headache, fevers/chills/sweats, no chest pain or worsening SOB over his chronic dyspnea, no abd pain or nausea. No diarrhea but has had some constipation. No urinary symptoms or dysuria, no joint pains or rashes. No leg swelling Physical Exam Constitutional: WD/WN, vitals as above Eyes: PERRL, conjunctivae normal, anicteric sclerae EOM intact bilaterally; no nystagmus and no photophobia ENMT: external ear and nose normal, oropharynx normal Neck: trachea midline, no thyromegaly Respiratory: normal respiratory effort, lungs clear to auscultation Cardiovascular: RRR, no murmur, no edema Chest (Breasts): Chest: normal inspection of chest and + pacemaker Gastrointestinal (Abdomen): normal bowel sounds, soft, nontender, no h epatosplenomegaly Musculoskeletal: Extremities: extremities normal to inspection; no cyanosis and no clubbing Skin: no rashes, warm and dry Neurologic: CN's II-XI intact bilaterally, moves all extremities, awake (initially, then had seizxure and become lethargic) and + confused; no focal motor deficits (5/5 strength throughout) Motor/Sensory: no tremor the patient had a seizure group home through my Neuro exam so was unable to complete sensory, DTRs, cerebellar testing and gait Psychiatric: Orientation: alert, oriented to person, oriented to place, oriented to time and cooperative Eye Contact: good eye contact Speech: normal rate/rhythm/volume of speech Affect: euthymic affect Thought Process: + tangential thought process and + perseveration Hallucinations: + auditory hallucinations (told me he was just talking to someone at the bedside who wasn't really the) Cognition: remote memory grossly intact; + recent memory not intact Estimated Intelligence: average estimated intelligence Insight: + poor insight Lymphatic: no lymphedema Results & Data Vital Signs (Past 12 Hours) Vital Signs Temp Pulse Pulse Resp BP BP Pulse Ox 01/10/20 19:23 74 20 100/69 98 01/10/20 19:20 79 100/69 98 01/10/20 19:10 80 98 01/10/20 19:02 74 100 01/10/20 19:00 74 74 20 102/72 102/72 100 01/10/20 18:59 74 104/75 96 01/10/20 18:55 109/68 01/10/20 18:50 81 19 99 01/10/20 18:49 87 21 130/87 99 01/10/20 18:48 99 01/10/20 18:16 96/63 L 01/10/20 17:10 79 20 01/10/20 16:32 70 23 109/72 94 01/10/20 15:38 36.6 C 80 18 120/79 94 Laboratory Results 01/10/20 01/10/2001/10/20 Range/Units 20:45 16:30 16:30 WBC (4.8-10.8) K/uL RBC (4.7-6.1) M/uL Hgb (14.0-18.0) g/dL Hct (42-52) % MCV (80-100) fL MCH (25-34) pg MCHC (32-36) g/dL RDW Std Deviation (36.4-46.3) fL RDW Coeff of Dena (11.5-14.5) % Plt Count (130-400) K/uL MPV (7.4-10.4) fL Immature Gran % (Auto) % Neut % (Auto) % Lymph % (Auto) % [place] % (Auto) % Eos % (Auto) % Baso % (Auto) % Immature Gran # (Auto) (0.00-0.02) K/uL Neut # (Auto) (1.4-6.5) K/uL Lymph # (Auto) (1.2-3.4) K/uL [place] # (Auto) (0.11-0.59) K/uL Eos # (Auto) (0-0.5) K/uL Baso # (Auto) (0-0.2) K/uL PT (9.0-12.0) Seconds INR (0.9-1.1) Sodium (136-145) mmol/L Potassium (3.5-5.1) mmol/L Chloride (98-107) mmol/L Carbon Dioxide (21-32) mmol/L Anion Gap (3-11) BUN (7-18) mg/dl Creatinine (0.6-1.4) mg/dl Est Cr Clr Drug Dosing ml/min Est GFR ( Amer) Est GFR (Non-Af Amer) BUN/Creatinine Ratio (10-20) Glucose (70-99) mg/dl POC Glucose (70-99) mg/dl Calcium (8.5-10.1) mg/dl Magnesium (1.8-2.4) mg/dl Total Bilirubin (0.2-1) mg/dl AST (15-37) U/L ALT (12-78) U/L Alkaline Phosphatase (45-117) U/L Ammonia 34.2 H (11-32) umol/L Troponin I (0-0.045) ng/ml Total Protein (6.4-8.2) gm/dl Albumin (3.4-5.0) gm/dl Globulin (2.5-4.0) gm/dl Albumin/Globulin Ratio (0.9-2) TSH (0.300-4.500) uIu/ml Random Cortisol mcg/dl Urine Color Yellow Urine Appearance Clear (Clear) Urine pH 6.5 (4.5-7.5) Ur Specific [place] 1.011 (1.000-1.030) Urine Protein Negative (Negative) Urine Glucose (UA) Negative (Negative) Urine Ketones Negative (Negative) Urine Blood Negative (Negative) Urine Nitrite Negative (Negative) Urine Bilirubin Negative (Negative) Urine Urobilinogen Negative (Negative) Ur Leukocyte Esterase Negative (Negative) Urine Opiates Screen Neg (Neg) Ur Methadone, Qual Neg (Neg) Urine Barbiturates Neg (Neg) Ur Phencyclidine (PCP) Neg (Neg) U Amphetamin/Meth Scrn Neg (Neg) MDMA (Ecstasy) Screen Neg (Neg) U Benzodiazepines Scrn Neg (Neg) Ur Cocaine Metabolite Neg (Neg) U Marijuana (THC) Screen Neg (Neg) 01/10/20 01/10/20 01/10/20 Range/Units 16:05 16:05 16:05 WBC (4.8-10.8) K/uL RBC (4.7-6.1) M/uL Hgb (14.0-18.0) g/dL Hct (42-52) % MCV (80-100) fL MCH (25-34) pg MCHC (32-36) g/dL RDW Std Deviation (36.4-46.3) fL RDW Coeff of Dena (11.5-14.5) % Plt Count (130-400) K/uL MPV (7.4-10.4) fL Immature Gran % (Auto) % Neut % (Auto) % Lymph % (Auto) % [place] % (Auto) % Eos % (Auto) % Baso % (Auto) % Immature Gran # (Auto) (0.00-0.02) K/uL Neut # (Auto) (1.4-6.5) K/uL Lymph # (Auto) (1.2-3.4) K/uL [place] # (Auto) (0.11-0.59) K/uL Eos # (Auto) (0-0.5) K/uL Baso # (Auto) (0-0.2) K/uL PT 14.3 H (9.0-12.0) Seconds INR 1.4 H (0.9-1.1) Sodium 136 (136-145) mmol/L Potassium 4.2 (3.5-5.1) mmol/L Chloride 103 (98-107) mmol/L Carbon Dioxide 26 (21-32) mmol/L Anion Gap 7.0 (3-11) BUN 23 H (7-18) mg/dl Creatinine 0.99 (0.6-1.4) mg/dl Est Cr Clr Drug Dosing 53.8 ml/min Est GFR ( Amer) 87.2 Est GFR (Non-Af Amer) 75.2 BUN/Creatinine Ratio 23.1 H (10-20) Glucose 100 H (70-99) mg/dl POC Glucose (70-99) mg/dl Calcium 9.0 (8.5-10.1) mg/dl Magnesium 1.8 (1.8-2.4) mg/dl Total Bilirubin 0.7 (0.2-1) mg/dl AST 25 (15-37) U/L ALT 26 (12-78) U/L Alkaline Phosphatase 125 H (45-117) U/L Ammonia (11-32) umol/L Troponin I 0.024 (0-0.045) ng/ml Total Protein 7.5 (6.4-8.2) gm/dl Albumin 3.3 L (3.4-5.0) gm/dl Globulin 4.2 H (2.5-4.0) gm/dl Albumin/Globulin Ratio 0.8 L (0.9-2) TSH 0.620 (0.300-4.500) uIu/ml Random Cortisol 13.79 mcg/dl Urine Color Urine Appearance (Clear) Urine pH (4.5-7.5) Ur Specific [place] (1.000-1.030) Urine Protein (Negative) Urine Glucose (UA) (Negative) Urine Ketones (Negative) Urine Blood (Negative) Urine Nitrite (Negative) Urine Bilirubin (Negative) Urine Urobilinogen (Negative) Ur Leukocyte Esterase (Negative) Urine Opiates Screen (Neg) Ur Methadone, Qual (Neg) Urine Barbiturates (Neg) Ur Phencyclidine (PCP) (Neg) U Amphetamin/Meth Scrn (Neg) MDMA (Ecstasy) Screen (Neg) U Benzodiazepines Scrn (Neg) Ur Cocaine Metabolite (Neg) U Marijuana (THC) Screen (Neg) 01/10/20 01/10/20 Range/Units 16:05 15:51 WBC 7.20 (4.8-10.8) K/uL RBC 4.68 L (4.7-6.1) M/uL Hgb 13.4 L (14.0-18.0) g/dL Hct 40.0 L (42-52) % MCV 85.5 (80-100) fL MCH 28.6 (25-34) pg MCHC 33.5 (32-36) g/dL RDW Std Deviation 58.0 H (36.4-46.3) fL RDW Coeff of Dena 18.6 H (11.5-14.5) % Plt Count 168 (130-400) K/uL MPV 10.7 H (7.4-10.4) fL Immature Gran % (Auto) 0.3 % Neut % (Auto) 71.3 % Lymph % (Auto) 12.4 % [place] % (Auto) 13.6 % Eos % (Auto) 1.8 % Baso % (Auto) 0.6 % Immature Gran # (Auto) 0.02 (0.00-0.02) K/uL Neut # (Auto) 5.14 (1.4-6.5) K/uL Lymph # (Auto) 0.89 L (1.2-3.4) K/uL [place] # (Auto) 0.98 H (0.11-0.59) K/uL Eos # (Auto) 0.13 (0-0.5) K/uL Baso # (Auto) 0.04 (0-0.2) K/uL PT (9.0-12.0) Seconds INR (0.9-1.1) Sodium (136-145) mmol/L Potassium (3.5-5.1) mmol/L Chloride (98-107) mmol/L Carbon Dioxide (21-32) mmol/L Anion Gap (3-11) BUN (7-18) mg/dl Creatinine (0.6-1.4) mg/dl Est Cr Clr Drug Dosing ml/min Est GFR ( Amer) Est GFR (Non-Af Amer) BUN/Creatinine Ratio (10-20) Glucose (70-99) mg/dl POC Glucose 105 H (70-99) mg/dl Calcium (8.5-10.1) mg/dl Magnesium (1.8-2.4) mg/dl Total Bilirubin (0.2-1) mg/dl AST (15-37) U/L ALT (12-78) U/L Alkaline Phosphatase (45-117) U/L Ammonia (11-32) umol/L Troponin I (0-0.045) ng/ml Total Protein (6.4-8.2) gm/dl Albumin (3.4-5.0) gm/dl Globulin (2.5-4.0) gm/dl Albumin/Globulin Ratio (0.9-2) TSH (0.300-4.500) uIu/ml Random Cortisol mcg/dl Urine Color Urine Appearance (Clear) Urine pH (4.5-7.5) Ur Specific [place] (1.000-1.030) Urine Protein (Negative) Urine Glucose (UA) (Negative) Urine Ketones (Negative) Urine Blood (Negative) Urine Nitrite (Negative) Urine Bilirubin (Negative) Urine Urobilinogen (Negative) Ur Leukocyte Esterase (Negative) Urine Opiates Screen (Neg) Ur Methadone, Qual (Neg) Urine Barbiturates (Neg) Ur Phencyclidine (PCP) (Neg) U Amphetamin/Meth Scrn (Neg) MDMA (Ecstasy) Screen (Neg) U Benzodiazepines Scrn (Neg) Ur Cocaine Metabolite (Neg) U Marijuana (THC) Screen (Neg) Diagnostic Findings CT Head noncon: IMPRESSION: 1. No acute intracranial findings 2. Presumed postsurgical changes involving the maxillary sphenoid and ethmoid sinuses. Correlation with prior surgical history is recommended to confirm this impression CXR: pulm emphysema, no acute process ECG Additional Comments: NSR, rate 72, no ischemic changes Code Status & VTE Plan Code Status FULL CODE VTE Prophylaxis Plan VTE Prophylaxis will be ordered: Yes PG Care Time/CCT Total # of Minutes Spent Total Time Spent with Patient: Total time spent is greater than 50% in coordination of care (as documented) at patient's floor/unit and/or counseling patient: Coding Level of Care Code 37999 Initial Inpt Care Lvl 3 Diagnoses Confusion R41.0 Seizure R56.9 Insomnia G47.00 Insomnia type: unspecified ICD (implantable cardioverter-defibrillator) in place Z95.810 Atrial fibrillation I48.91 Ischemic cardiomyopathy I25.5 GERD (gastroesophageal reflux disease) K21.9 Hyperlipidemia E78.5 Hyperlipidemia type: unspecified Hypertension I10 Hypertension type: essential hypertension Emphysema of lung J43.9 Pituitary adenoma D35.2 CAD (coronary artery disease), [place] coronary artery I25.10 Chronic systolic CHF (congestive heart failure) I50.22 Chronic respiratory failure with hypoxia J96.11 Alcohol abuse F10.10 PAD (peripheral artery disease) I73.9 Celiac disease K90.0 Anemia D64.9 Thrombocytopenia D69.6 DVT prophylaxis Z29.9 (1) Insomnia Insomnia type: unspecified Qualified Code(s): G47.00 - Insomnia, unspecified (2) Hyperlipidemia Hyperlipidemia type: unspecified Qualified Code(s): E78.5 - Hyperlipidemia, unspecified (3) Hypertension Hypertension type: essential hypertension Qualified Code(s): I10 - Essential (primary) hypertension
[2020-01-10 19:48] LABS: Amphetamines+Metham, Urine Neg (Neg); Barbiturates, Urine Neg (Neg); Benzodiazepine, Urine Neg (Neg); Cocaine, Urine Neg (Neg); MDMA (Ecstacy), Urine Neg (Neg); Methadone, Urine Neg (Neg); Opiate, Urine Neg (Neg); Phencyclidine, Urine Neg (Neg)
[2020-01-10] MEDS ORDERED: MULTI-VITAMIN INFUSION 10 ML, THIAMINE HCL 100 MG, FOLIC ACID 1 MG in SODIUM CHLORIDE 0... IV ONE (20:32)
[2020-01-10] MEDS ORDERED: LORazepam 1 MG/2 ML VIAL IV PRN (20:32)
[2020-01-10] MEDS ORDERED: SODIUM CHLORIDE 0.9% 1000ML 1,000 ML IV SCH (20:32)
[2020-01-10] MEDS ORDERED: NITROGLYCERIN SL 0.4 MG/TAB TAB SL PRN (20:32)
[2020-01-10] MEDS ORDERED: ALBUTEROL HFA 8 GM INHALER INH PRN (20:51)
[2020-01-10] MEDS ORDERED: FOLIC ACID 1 MG TAB PO SCH (21:00)
[2020-01-10] MEDS ORDERED: METOPROLOL SUCC 50MG EXT REL TAB PO SCH (21:00)
[2020-01-10] MEDS ORDERED: NON-FORMULARY MEDICATION (Fluticasone-Umeclidin-Vilanter [Trelegy Ellipta] 1 PUFFS) INH SCH (21:00)
[2020-01-10] MEDS ORDERED: ATORVASTATIN 40 MG TAB PO SCH (21:00)
[2020-01-10] MEDS ORDERED: FLUTICASONE FUROATE 100MCG 14 PUFFS/INHALER INH SCH (21:30)
[2020-01-10] MEDS ORDERED: UMECLIDINIUM/VILANTEROL 62.5/25MCG 7 PUFFS/INHALER INH SCH (21:30)
[2020-01-10] MEDS: THIAMINE HCL 100 MG in SYRINGE 9 ML IV SCH (21:58)
[2020-01-10] MEDS: FOLIC ACID 1 MG in SYRINGE 9.8 ML IV SCH (21:58)
[2020-01-10] MEDS: SOTALOL HCL 80 MG TAB PO SCH (21:59)
[2020-01-10] MEDS: APIXABAN 5 MG TABLET PO SCH (22:01)
[2020-01-10] MEDS: PANTOprazole 40 MG TAB PO SCH (22:01)
[2020-01-10] MEDS ORDERED: GLUCAGON FOR INJ 1 MG VIAL SQ PRN (23:24)
[2020-01-10] MEDS ORDERED: DEXTROSE 50% 50 ML SYRINGE IV PRN (23:24)
[2020-01-10] MEDS ORDERED: GLUCOSE 40% GEL 15 GM TUBE PO PRN (23:24)
[2020-01-10] MEDS ORDERED: GLUCOSE 10 TABS/TUBE PO PRN (23:24)
[2020-01-10] MEDS ORDERED: CARBOHYDRATES FOR HYPOGLYCEMIA PO PRN (23:24)
[2020-01-11] MEDS: INSULIN ASPART 100 UNITS/ML 3 ML PEN SC SCH ×4 (01:11→17:20)
[2020-01-11 05:53] LABS: Basophils # (auto) 0.02 K/uL (0-0.2); Basophils % (auto) 0.4 %; Eosinophils # (auto) 0.05 K/uL (0-0.5); Eosinophils % (auto) 0.9 %; Hematocrit (blood only) 34.8 % (42-52); Hemoglobin 11.5 g/dL (14.0-18.0); Immature Granulocytes # (auto) 0.01 K/uL (0.00-0.02); Immature Granulocytes % (auto) 0.2 %; Lymphocytes # (auto) 0.68 K/uL (1.2-3.4); Lymphocytes % (auto) 12.2 %; Mean Corpuscular Hemoglobin 27.8 pg (25-34); Mean Corpuscular Volume 84.3 fL (80-100); Mean Platelet Volume 10.1 fL (7.4-10.4); Monocytes # (auto) 1.15 K/uL (0.11-0.59); Monocytes % (auto) 20.6 %; Neutrophils # (auto) 3.66 K/uL (1.4-6.5); Neutrophils % (auto) 65.7 %; Platelet Count 133 K/uL (130-400); RDW Coefficient of Variation 18.5 % (11.5-14.5); RDW Standard Deviation 57.8 fL (36.4-46.3); Red Blood Count 4.13 M/uL (4.7-6.1); White Blood Count 5.57 K/uL (4.8-10.8)
[2020-01-11 06:25] LABS: Albumin Globulin Ratio 0.8 (0.9-2); Albumin Level 2.6 gm/dl (3.4-5.0); BUN Creatinine Ratio 19.6 (10-20); Bilirubin,Total 0.9 mg/dl (0.2-1); Calcium 8.3 mg/dl (8.5-10.1); Creatinine Clr Calc Pharmacy 69.7 ml/min; Est GFR (African American) 97.2; Est GFR (Non-African American) 83.8; Globulin 3.2 gm/dl (2.5-4.0); Magnesium 1.9 mg/dl (1.8-2.4); Phosphorus 3.1 mg/dl (2.5-4.9); Potassium 3.5 mmol/L (3.5-5.1); Total Protein 5.8 gm/dl (6.4-8.2)
[2020-01-11] MEDS ORDERED: INSULIN ASPART 100 UNITS/ML 3 ML PEN SC SCH (07:30)
[2020-01-11] MEDS: PANTOprazole 40 MG TAB PO SCH (07:55)
[2020-01-11] MEDS: APIXABAN 5 MG TABLET PO SCH (07:58)
[2020-01-11] MEDS: SOTALOL HCL 80 MG TAB PO SCH (08:01)
[2020-01-11] MEDS ORDERED: ASPIRIN 81 MG ECTAB PO SCH (09:00)
[2020-01-11] MEDS ORDERED: CHOLECALCIFEROL 1,000 UNITS 25 MCG TAB PO SCH (09:00)
[2020-01-11] MEDS ORDERED: CLOPIDOGREL BISULFATE 75 MG TAB PO SCH (09:00)
[2020-01-11] MEDS ORDERED: ISOSORBIDE MONO EXTENDED REL 60 MG TABCR PO SCH (09:00)
[2020-01-11 09:05] LABS: Folate (Folic Acid) > 24.00 ng/ml (>5.38); Vitamin B12 599 pg/ml (211-911)
[2020-01-11] MEDS ORDERED: Nursing to Pharmacy Communication ONE (09:21)
[2020-01-11] MEDS ORDERED: MAGNESIUM SULFATE / D5W 1 GM/100 ML BAG IV ONE (10:15)
[2020-01-11] MEDS ORDERED: POTASSIUM CHLORIDE 20 MEQ TABCR PO ONE (10:15)
[2020-01-11] MEDS: THIAMINE HCL 100 MG in SYRINGE 9 ML IV SCH (10:48)
[2020-01-11] MEDS: FOLIC ACID 1 MG in SYRINGE 9.8 ML IV SCH (10:48)
--- NOTE | 2020-01-11 10:50 | Cardiology Consultation ---
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 Patient will proceed with MRI. ICD programming changes pre-and post MRI ordered. Suspect confusion/seizure related to alcohol use. Patient appears compensated from a cardiovascular perspective. Remains in sinus rhythm on telemetry with combination of sotalol plus metoprolol. Currently treated with aspirin, Plavix, and Eliquis. Recommend discontinuation of aspirin at this time. Agree with holding losartan, Aldactone today. Continue routine blood pressure assessment per protocol on telemetry. Repeat basic metabolic panel in a.m. Continue other cardiovascular medications as previously ordered. History of Present Illness Reason for Consultation: ICD is not MRI compatible, patient needs MRI per neurology Chronic systolic heart failure Paroxysmal atrial fibrillation Request recommendations regarding need for dual antiplatelet therapy plus anticoagulation. Requesting Physician: Dr. Estrella Attending Physician: Yolis Estrella MD History of Present Illness 75-year-old male presents the emergency department with change in mental status. Noted to be hypotensive. Sinus rhythm on telemetry. Initial CT of the head un remarkable, however, patient has history of pituitary macroadenoma status post resection. He is followed with MRI on a yearly basis at [facility]. Complex cardiovascular history listed below. Patient denies any significant confusion preceding hospitalization. Son is present at bedside. Reports conversations where his father did not make sense. Witnessed seizure noted in the ER. Patient admits to drinking alcohol on . Denies any alcohol use on the day prior to admission. No chest discomfort or unusual shortness of breath. Borderline hypotension noted on presentation. Denies lightheadedness, dizziness, syncope, or near syncope. No orthopnea, paroxysmal nocturnal dyspnea, palpitations, lower extremity edema, or weight gain. Patient has lost more than 15 pounds since recent hospitalization in October. Complex cardiovascular history: 1. Atherosclerotic coronary disease, status post prior inferior myocardial infarction and PTCA of the right coronary artery in 1995. 2. Uyy-aa-tidhugcp cardiac arrest in May of 2014 treated with bystander CPR and early defibrillation. 3. Status post pacer defibrillator implantation in May of 2014. 4. Severe multivessel coronary disease with poor surgical and interventional targets in May of 2014 with diffusely diseased right coronary artery and occluded left anterior descending. 5. Ischemic cardiomyopathy, EF 35-39% 5. Stable class 2 angina pectoris. 6. Hypertension. 7. Hyperlipidemia. 8. 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 9. Status post transsphenoidal resection of nonsecretory pituitary adenoma 09/20/2016, complicated by Aspergillus sinusitis. 10. History of iron-deficiency anemia. 11. Descending colon colitis , possibly ischemic September 23, 2019 12. New onset AFib flutter October 22, 2019, status post sotalol load , cardioversion November 13, 2019 Allergies Allergy/AdvReac Type Severity Reaction Status Date / Time amoxicillin Allergy Mild RASH/ITCHIN Verified 01/10/20 17:07 G lactose AdvReac Intermediate GI SYMPTOMS Verified 01/10/20 17:07 benzalkonium chloride AdvReac Mild ITCHING/SWE Verified 01/10/20 17:07 LLING/RASH gluten AdvReac Unknown gluten Verified 01/10/20 17:07 intolerant per EGD Home Medications Home Medications Medication Instructions Recorded Confirmed Type atorvastatin 80 mg PO PM 11/13/18 01/10/20 History clopidogrel [Plavix] 75 mg PO QAM 11/13/18 01/10/20 History folic acid 1 mg PO HS 11/13/18 01/10/20 History omeprazole 40 mg PO BID 11/13/18 01/10/20 History albuterol sulfate 90 mcg/actuation 90 mcg INH Q6H PRN #1 ea 08/29/19 01/10/20 Rx breath activated powder inhaler nitroglycerin 0.4 mg sublingual 0.4 mg SL Q5M PRN 08/29/19 01/10/20 History tablet Trelegy Ellipta 1 inh INHALATION HS 09/22/19 01/10/20 History cholecalciferol (vitamin D3) 2,000 unit PO QAM 09/22/19 01/10/20 History isosorbide mononitrate 60 mg PO QAM 09/22/19 01/10/20 History zolpidem 5 mg tablet 5 - 10 mg PO HS PRN 90 Days #180 10/21/19 01/10/20 Rx tab apixaban 5 mg tablet 5 mg PO BID 12/30/19 01/10/20 History furosemide 40 mg tablet 60 mg PO BID tab 12/30/19 01/11/20 History metoprolol succinate 50 mg 50 mg PO HS 12/30/19 01/10/20 History tablet,extended release 24 hr sotalol 80 mg tablet 80 mg PO BID 12/30/19 01/10/20 History losartan 25 mg PO HS 01/10/20 01/10/20 History testosterone [AndroGel] 2 pump TRANSDERMAL QAM 01/10/20 01/10/20 History spironolactone 25 mg PO QAM 01/11/20 01/11/20 History Patient History Medical History Alcohol abuse Anemia Arthritis CAD (coronary artery disease), [place] coronary artery Celiac disease Chronic respiratory failure with hypoxia Chronic systolic CHF (congestive heart failure) Diabetes Emphysema of lung GERD (gastroesophageal reflux disease) Gout Hyperlipidemia Hypertension ICD (implantable cardioverter-defibrillator) in place [employer] [address] Newberry Ischemic cardiomyopathy Ischemic colitis Migraine Myocardial Infarction most recent 2013, adjust med and icd inserted Non-ST elevation [place] (NSTEMI) (Inactive) PAD (peripheral artery disease) Pituitary adenoma removal of adenoma from pituitary 2015 Thrombocytopenia Unstable angina (Inactive) Ventricular tachycardia Surgical History H/O hand surgery Right hand tendon repair History of abdominal aortic aneurysm (AAA) repair 2006 History of cardiac defibrillator placement May 2014 History of pituitary surgery August 2016 History of total hip arthroplasty right and left Hx of uzgsm-zugvs-klbvoyz bypass right and left leg Family History Mother , at age 46 Breast cancer Other Cancer Denies family history of Ovarian cancer Prostate cancer Myocardial infarction Colorectal cancer Social History Preferred Language: Chinese Communication Ability: Effective Visual Impairment: No Limitations Hearing Ability: Normal 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 Beliefs That Will Affect Care: None marital status: marital status details: no children Current Living Situation: Alone current occupational status: retired Other Information That Helps Us Care for You: No Feels Safe at Home: Yes Safety Concerns: Feels Safe At This Time Smoking Status: Former smoker Age Started Using Tobacco: 19 ; Age Quit Using Tobacco: 61 ; packs per day: 1.5 ; Cigarettes Per Day: 20-40 ; Do You Dip or Chew Tobacco: No ; Number of Years Since Quit: 13 ; Second Hand Exposure: No ; Tobacco Cessation Education Requested by Patient: No Hx Alcohol Use: Yes Alcohol type: hard liquor Alcohol Intake Frequency: Daily Alcohol Intake Frequency Comment: 2-3 bourbons daily Hx Substance Use: No Childhood Exposure to Second-Hand Smoke: No Dental Care, Regularly: Yes Physical Activity Frequency: 3-4 Times per Week Seatbelt Use: always Sunscreen Use: Yes Review of Systems Review of Systems: All systems reviewed & are unremarkable except as noted in HPI & below Physical Exam Constitutional: well developed and well nourished; no acute distress and not ill appearing Respiratory: normal respiratory effort, lungs clear to auscultation Cardiovascular: Rate/Rhythm: regular rate and regular rhythm Heart Sounds: normal S1 and normal S2; no gallop, no murmur and no cardiac rub Vessels: no JVD Extremities: no edema Gastrointestinal (Abdomen): normal bowel sounds, soft, nontender, no hepatosplenomegaly Musculoskeletal: no cyanosis or clubbing, extremities motor strength 5/5 Skin: no rashes, warm and dry no ulcers Neurologic: moves all extremities; no focal motor deficits Psychiatric: A+Ox3, euthymic affect Results & Data ([facility]) Vital Signs (Past 12 Hours) Vital Signs Temp Pulse Pulse Resp BP Pulse Ox Pulse Ox 01/11/20 07:15 36.6 C 63 17 93/60 L 95 01/11/20 04:00 36.6 C 64 16 95/64 L 95 01/11/20 00:00 69 95 01/10/20 23:54 36.5 C 65 18 93/56 L 97 (1) CAD (coronary artery disease), [place] coronary artery Associated angina: with stable angina [place] vs. transplanted heart: [place] heart Qualified Code(s): I25.118 - Atherosclerotic heart disease of [place] coronary artery with other forms of angina pectoris
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
[2020-01-11] MEDS ORDERED: LORazepam 0.5 MG/1 ML VIAL IV PRN (11:23)
[2020-01-11] MEDS ORDERED: ALBUTEROL HFA 8 GM INHALER INH PRN (11:27)
[2020-01-11] MEDS ORDERED: GADOBUTROL 30ML VIAL IV PRN (13:20)
--- NOTE | 2020-01-11 13:31 | Magnetic Resonance Report ---
MRI OF THE BRAIN COMBO CLINICAL HISTORY: Seizure. 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 COMPARISON STUDY: CT of the brain dated 01/10/2020. TECHNIQUE: MRI of the brain was performed utilizing various T1 and T2-weighted sequences in the axial , sagittal, and coronal planes. Contrast-enhanced sequences were acquired following the administratio n of 7 cc of Gadavist. The examination is performed using the seizure protocol. The examination is de graded by motion artifact. FINDINGS: Brain parenchyma: There is age-related involutional change noting moderate patchy subcortical and per iventricular microangiopathic disease. There is no hemorrhage or mass effect. There is no restricted diffusion to suggest acute ischemia. No enhancing mass lesion is identified on the postcontrast image s. Baer-white matter differentiation is preserved. No extra-axial fluid collection is seen. The cereb ellar tonsils are normal in configuration. Ventricles, sulci, and cisterns: Prominent secondary to involutional change. Pituitary and sella: Partially empty sella is incidentally noted. This may be on a postoperative basi s. There is no evidence of enhancing mass lesion in the region of the sella. Intracranial vasculature: Normal flow voids are maintained at the skull base. Orbits: The bony orbits are grossly intact. Orbital contents are normal in appearance. Sinuses and mastoids: Postoperative change is seen involving the paranasal sinuses. Trace mucosal thi ckening is noted in the right sphenoid sinus and the right maxillary antrum. The remaining paranasal sinuses are clear. There is a left mastoid effusion. Calvarium: Unremarkable. Cervical cord: Partially visualized cervical spinal cord is normal in morphology and signal intensity . IMPRESSION: No acute intracranial abnormality noting a motion degraded examination. ACT 112: Negative or not required by law. Electronically signed by: Jose Carlos Velazquez M.D. 01/11/2020 1:30 PM
--- NOTE | 2020-01-11 14:07 | Electrocardiogram Report ---
Test Reason : Blood Pressure : / mmHG Vent. Rate : 072 BPM Atrial Rate : 072 BPM P-R Int : 206 ms QRS Dur : 104 ms QT Int : 436 ms P-R-T Axes : 032 -23 111 degrees QTc Int : 477 ms Normal sinus rhythm Inferior infarct , age undetermined Poor R wave progression, consider anterior CA vs. lead placement vs. LVH Possible Anterior infarct , age undetermined Abnormal ECG When compared with ECG of 14-NOV-2019 09:03, Premature ventricular complexes are no longer Present Premature atrial complexes are no longer Present Borderline criteria for Anterior infarct are now Present Inferior infarct is now Present Nonspecific T wave abnormality, improved in Inferior leads Confirmed by Khadar Porter ([id number]) on 01/11/2020 2:07:10 PM Referred By: REFERRED SELF Confirmed By:Khadar Porter
[2020-01-11] MEDS ORDERED: FUROSEMIDE 20 MG TAB PO SCH (17:00)
--- NOTE | 2020-01-11 18:15 | Discharge Summary ---
Date of Service January 11, 2020 Discharge Exam Constitutional WD/WN, vitals as above Eyes PERRL, conjunctivae normal, anicteric sclerae EOM intact bilaterally; no nystagmus and no photophobia ENMT external ear and nose normal, oropharynx normal Neck trachea midline, no thyromegaly Respiratory normal respiratory effort, lungs clear to auscultation Cardiovascular RRR, no murmur, no edema Chest (Breasts) Chest: normal inspection of chest and + pacemaker Gastrointestinal (Abdomen) normal bowel sounds, soft, nontender, no hepatosplenomegaly Musculoskeletal Extremities: extremities normal to inspection; no cyanosis and no clubbing Skin no rashes, warm and dry Neurologic CN's II-XI intact bilaterally, moves all extremities, awake (initially, then had seizxure and become lethargic) and + confused; no focal motor deficits (5/5 strength throughout) Motor/Sensory: no tremor Psychiatric Orientation: alert, oriented to person, oriented to place, oriented to time and cooperative Eye Contact: good eye contact Speech: normal rate/rhythm/volume of speech Affect: euthymic affect Thought Process: + tangential thought process and + perseveration Hallucinations: + auditory hallucinations (told me he was just talking to someone at the bedside who wasn't really the) Cognition: remote memory grossly intact; + recent memory not intact Estimated Intelligence: average estimated intelligence Insight: + poor insight Lymphatic no lymphedema Discharge Data Allergies Allergy/AdvReac Type Severity Reaction Status Date / Time amoxicillin Allergy Mild RASH/ITCHIN Verified 01/10/20 17:07 G lactose AdvReac Intermediate GI SYMPTOMS Verified 01/10/20 17:07 benzalkonium chloride AdvReac Mild ITCHING/SWE Verified 01/10/20 17:07 LLING/RASH gluten AdvReac Unknown gluten Verified 01/10/20 17:07 intolerant per EGD Consultations 01/10/20 18:29 ED Decision to Admit Stat 01/10/20 20:32 Consult Case Management - Discharge Planning Routine Consult Neurology Routine 01/11/20 09:19 Consult Cardiology Routine 01/11/20 14:24 Burn CD for patient Routine Ordered Studies 01/10/20 16:01 CT head/brain wo con Stat 01/11/20 11:15 MR brain seizure wo/w con Urgent Hospital Course (1) Confusion: Presented with worsening confusion, paranoia, and possible hallucinations over the previous 4 days. Does drink EtOH regularly as per his friend and did not drink much the last 2-3 days prior to admission Had a generalized witnessed seizure in the ER by myself and ER MD CT head noncon negative, CXR negative for acute Has a h/o pituitary adenoma resection Urine tox screen negative, BMP unremarkable, NH3 only minimally elevated at 34, random cortisol 13, CBC mild anemia, UA normal Afebrile, no evidence of infection TSH normal -possibility of brain mass or lesion causing confusion, medication overuse of Ambien as well, and EtOH withdrawal -check brain MRI -consult Neuro as below for seizure -hold Ambien -continue NPO for now and give gentle IVFs with NS at 70mL/hr (2) Seizure: Witnessed generalized seizure in ER lasting 1 minute, had post-ictal period Was given IV ativan and loaded with Keppra 1000mg IV x 1 CT head neg as above With h/o pituitary resection Possibility of medication related, EtOH withdrawal as above No signs or symptoms of meningitis or infectious encephalitis Cannot do LP as he is taking Eliquis and Plavix as well as ASA -check brain MRI-await [employer] Rep tomorrow for pacer/ICD -seizure precautions -continue Keppra 500mg IV bid -ativan prn seizures -alcohol withdrawal protocol -Consult Neuro (3) Insomnia: Chronic Takes Ambien 5mg q4 hrs hs Has tried trazodone and mirtazapine in the past as per PCP notes without success -hold Ambien for confusion as above (4) ICD (implantable cardioverter-defibrillator) in place: in place for secondary prevention--> has had 2 VT arrests (5) Atrial fibrillation: Paroxysmal Had sotalol loading and DCCV 10/[address] Newberry At that time, Toprol XL was discontinued-looks like he has been filling it and taking it at outpt pharmacy--> will discontinue now -continue sotalol 80mg po bid -continue ELiquis 5mg po bid In NSR here on ECG -tele monitoring (6) Ischemic cardiomyopathy: LVEF 35%, known severe CAD -not volume overloaded currently -holding aldactone, lasix, losartan for hypotension s/p seizure and IV ativan -restart if taking po and BPs can tolerate -I/Os, daily weights -low Na+ diet once taking po -giving gentle IVFs now with NS given NPO status (7) GERD (gastroesophageal reflux disease): with h/o Barretts -continue PPI (8) Hyperlipidemia: continue statin (9) Hypertension: BPs low after seizure -hold home losartan, lasix, aldactone (10) Emphysema of lung: Severe lung disease, now recently on home O2, with long h/o smoking Continue home inhalers, O2 hs (11) Pituitary adenoma: s/p resection (partial) at [facility] 2016 Followed with brain MRIs annually although admits he did not have it in 2019 -continue Androgel Continue annual follow up on labs, TSH normal here Cortisol random 13 -check brain MRI as above (12) CAD (coronary artery disease), [place] coronary artery: Known severe multivessel disease, s/p PTCA RCA in 1995 after inferio SD -continue Plavix, Eliquis, ASA (13) Chronic systolic CHF (congestive heart failure): as above (14) Chronic respiratory failure with hypoxia: continue O2 at 2LNC hs and as needed (15) Alcohol abuse: Drinks 2-3 bourbons daily estimated by friend Did not drink much the last few days prior to admission Possibility of EtOH withdrawal as above -AWSS scale, ativan prn -give Banana bag x 1 now -continue IV folic acid and IV thiamine in the AM -check B12, folate levels (16) PAD (peripheral artery disease): with h/o repaired ruptured AAA and [id number] bypass -continue DAPT, statin (17) Celiac disease: will need gluten free diet when eating (18) Anemia: hgb mildly low 12-13, MCV normal, could be mixed picture Is on Eliquis and DAPT -check B12, folate, iron studies Hemoccult stool (19) Thrombocytopenia: plts normal here but have been low around 100 in the past frequently -suspect EtOH use contributing, possible liver disease, or B12 deficiency -checking B12 Follow CBC (20) DVT prophylaxis: Eliquis Dispo-admit to PCU FULL CODE as per previous admissions, pt unable to reliably tell me his wishes, friend Williams Martinez # [phone] is his closest friend and POA and provides most of history, however he believes the patient's brother in [place] is the HCPOA. He will touch base with the brother and get HCPOA paperwork and confirm code status Discharge Plan Discharge Items Patient Disposition: Home - Self-Care Reason For Visit: SEIZURE Discharge Diagnosis: Seizure Altered mental status Alcohol withdrawal Condition on Discharge: Good Activity: As commented below Lifting: Gradually increase as tolerated Bathing: No limitations Exercise/Sports: Gradually increase as tolerated Driving/Machine Use: No driving x 6 months Non-emergency contact: Primary Care Provider and Neurologist Call non-emergency contact if: you have any medication questions and your symptoms worsen Follow-up/Referrals: Quirino Hensley MD [Primary Care Provider] - (Please call for an appointment within 1-2 weeks.) Tin Vaz III, MD [Physician] - (Please call Dr. Vaz's office to get a hospital follow up appointment within 2-3 weeks.) Diet: Low Sodium (2gm) Addtl Attending Provider Instructions: You were admitted with confusion and then had a seizure. This was thought to be related to withdrawal from alcohol and from lack of sleep. You were started on an antiseizure medication called Keppra 500mg twice a day. You had a brain MRI that did not show anything new (no brain tumor or stroke). The Neurologist would like to see you in follow up. You should not drive. 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 Please DO NOT DRINK ALCOHOL. You should really minimize Ambien use for sleep to 1-2x/month as needed. Your blood pressures have been running on the lower side. Please DO NOT TAKE your LOSARTAN this evening. You can then restart it tomorrow night. Follow up with your primary care doctor within 1 week. Pending Studies at Discharge: No Stand-Alone Forms: My [facility] Medications and DC Order Prescriptions: New thiamine HCl (vitamin B1) [Vitamin B-1] 100 mg Tablet 100 mg PO QAM Qty: 30 RF: 0 levetiracetam [Keppra] 500 mg tablet 500 mg PO BID Qty: 60 RF: 0 Continued nitroglycerin [Nitrostat] 0.4 mg tablet, sublingual 0.4 mg SL Q5M PRN (Reason: Chest Pain) RF: 0 albuterol sulfate 90 mcg/actuation aerosol powdr breath activated 90 mcg INH Q6H PRN (Reason: shortness of breath or wheezing) Qty: 1 RF: 2 furosemide 40 mg tablet 60 mg PO BID RF: 0 metoprolol succinate 50 mg tablet extended release 24 hr 50 mg PO HS RF: 0 Eliquis 5 mg tablet 5 mg PO BID RF: 0 sotalol 80 mg tablet 80 mg PO BID RF: 0 atorvastatin 80 mg Tablet 80 mg PO PM RF: 0 clopidogrel [Plavix] 75 mg Tablet 75 mg PO QAM RF: 0 omeprazole 20 mg Capsule,Delayed Release(Dr/Ec) 40 mg PO BID RF: 0 folic acid 1 mg Tablet 1 mg PO HS RF: 0 losartan 25 mg tablet 25 mg PO HS RF: 0 testosterone [AndroGel] 20.25 mg/1.25 gram (1.62 %) gel in metered-dose pump 2 pump transdermal QAM RF: 0 spironolactone 25 mg tablet 25 mg PO QAM RF: 0 cholecalciferol (vitamin D3) 2,000 unit Tablet 2,000 unit PO QAM RF: 0 isosorbide mononitrate 60 mg tablet extended release 24 hr 60 mg PO QAM RF: 0 Trelegy Ellipta 100-62.5-25 mcg blister with device 1 inh inhalation HS RF: 0 Changed zolpidem 5 mg tablet 5 mg PO HS PRN (Reason: Sleep) 90 Days Qty: 180 RF: 0 Discharge Orders: Discharge Order (Routine); Ordered 01/11/20 Ordered By: Yolis Estrella Admission Data Admit Date/Time: 01/10/20 19:52 Attending Provider: Yolis Estrella Admit Provider: Yolis Estrella Primary Care Provider: Quirino Hensley Other Providers: Yolis Estrella ; Tin Vaz III ; Tyler Gary Coding Diagnoses Confusion R41.0 Seizure R56.9 Insomnia G47.00 Insomnia type: unspecified ICD (implantable cardioverter-defibrillator) in place Z95.810 Atrial fibrillation I48.91 Ischemic cardiomyopathy I25.5 GERD (gastroesophageal reflux disease) K21.9 Hyperlipidemia E78.5 Hyperlipidemia type: unspecified Hypertension I10 Hypertension type: essential hypertension Emphysema of lung J43.9 Pituitary adenoma D35.2 CAD (coronary artery disease), [place] coronary artery I25.118 [place] vs. transplanted heart: [place] heart Associated angina: with stable angina Chronic systolic CHF (congestive heart failure) I50.22 Chronic respiratory failure with hypoxia J96.11 Alcohol abuse F10.10 PAD (peripheral artery disease) I73.9 Celiac disease K90.0 Anemia D64.9 Thrombocytopenia D69.6 DVT prophylaxis Z29.9
[2020-01-11] MEDS ORDERED: levETIRAcetam 500 MG TAB PO SCH (18:20)
[2020-01-11] MEDS ORDERED: FLUTICASONE FUROATE 100MCG 14 PUFFS/INHALER INH SCH (21:00)
[2020-01-11] MEDS ORDERED: LOSARTAN POTASSIUM 25 MG TAB PO SCH (21:00)
[2020-01-11] MEDS ORDERED: METOPROLOL SUCC 50MG EXT REL TAB PO SCH (21:00)
[2020-01-12 05:45] LABS: Estimated Average Glucose 151 mg/dl; Hemoglobin A1C 6.9 % (4.5-5.6)
[2020-01-12] MEDS ORDERED: THIAMINE HCL 100 MG TAB PO SCH (09:00)
[2020-01-12] MEDS ORDERED: FUROSEMIDE 40 MG TAB PO SCH (09:00)
== END 2020-01-11 19:06 | disposition home or self-care (01) | DRG 101 ==
LOC: ED 15:31 → 2S 19:52

== ENCOUNTER 2020-01-15 21:46 | Observation (INO) ==
[2020-01-15] MEDS ORDERED: LORazepam 0.5 MG/1 ML VIAL IV STA (22:22)
--- NOTE | 2020-01-15 22:41 | XRay Report ---
XR chest 1V portable HISTORY: weakness COMPARISON: Chest 01/10/2020. FINDINGS: No pneumothorax. No pleural effusions. The heart remains mildly enlarged. Left-sided dual-c hamber pacemaker is again noted. Punctate calcified granuloma within the left lung apex. Peripheral o r and basilar interstitial thickening is noted. This is likely chronic. No evidence for pulmonary wade ma. Stable hazy appearance to left lung base which likely represents prominent epicardial fat. IMPRESSION: 1. Mild cardiomegaly and chronic interstitial thickening. 2. No change compared to the prior study. ACT 112: Negative or not required by law. Electronically signed by: Abelardo Deutsch M.D. 01/15/2020 10:40 PM
[2020-01-15 22:52] LABS: Basophils # (auto) 0.02 K/uL (0-0.2); Basophils % (auto) 0.3 %; Eosinophils # (auto) 0.06 K/uL (0-0.5); Eosinophils % (auto) 0.9 %; Hematocrit (blood only) 45.7 % (42-52); Hemoglobin 15.4 g/dL (14.0-18.0); Immature Granulocytes # (auto) 0.01 K/uL (0.00-0.02); Immature Granulocytes % (auto) 0.1 %; Lymphocytes # (auto) 1.26 K/uL (1.2-3.4); Lymphocytes % (auto) 18.5 %; Mean Corpuscular Hemoglobin 28.6 pg (25-34); Mean Corpuscular Hgb Conc 33.7 g/dL (32-36); Mean Corpuscular Volume 84.9 fL (80-100); Mean Platelet Volume 10.7 fL (7.4-10.4); Monocytes # (auto) 0.75 K/uL (0.11-0.59); Neutrophils # (auto) 4.71 K/uL (1.4-6.5); Neutrophils % (auto) 69.2 %; Platelet Count 155 K/uL (130-400); RDW Coefficient of Variation 18.5 % (11.5-14.5); RDW Standard Deviation 57.6 fL (36.4-46.3); Red Blood Count 5.38 M/uL (4.7-6.1); White Blood Count 6.81 K/uL (4.8-10.8)
--- NOTE | 2020-01-15 22:54 | Emergency Department Note ---
Entered by Carolann Aguilar acting as a scribe for History of Present Illness General Chief complaint: Altered Mental Status Stated complaint: VERY CONFUSED - NOT SURE WHAT MEDS WERE TAKEN Time Seen by Provider: 01/15/20 22:03 Source: patient and family (son) History of Present Illness Onset (ago): day(s) (8) Location: head (general) Pain Consistency: + intermittent Maximum Pain Intensity: 0 Quality: + other (altered mental status) Associated symptoms: + other (confusion, memory loss) The patient is a 75 year old male who presents to the Emergency Room with complaints of intermittent altered mental status beginning 8 days ago. The patient's son reports the patient's symptoms of confusion and memory were particularly bad 6 days ago. He reports the patient came to the ER and was admitted. He notes the patient's MRI and CT scans were normal and he discharged the next day. The patient's son reports the patient has been constantly going round and round asking deep existential questions that are very unlike him. He states he received a text from the patient this morning which seemed fine. He reports he then received another text this evening which was confusing so he immediately went to the patient's home. He notes the patient has not been sleeping and is taking Ambien tablets. The patient's son reports the patient had a seizure while in the hospital and was placed on Keppra. He notes he does not know if the patient is taking his medications as prescribed. The patient denies alcohol use. He states he is unsure if he hit his head. Home Medications Home Medications Medication Instructions Recorded Confirmed Type atorvastatin 80 mg PO PM 11/13/18 01/15/20 History clopidogrel [Plavix] 75 mg PO QAM 11/13/18 01/15/20 History folic acid 1 mg PO HS 11/13/18 01/15/20 History omeprazole 40 mg PO BID 11/13/18 01/15/20 History albuterol sulfate 90 mcg/actuation 90 mcg INH Q6H PRN #1 ea 08/29/19 01/15/20 Rx breath activated powder inhaler nitroglycerin 0.4 mg sublingual 0.4 mg SL Q5M PRN 08/29/19 01/15/20 History tablet Trelegy Ellipta 1 inh INHALATION HS 09/22/19 01/15/20 History cholecalciferol (vitamin D3) 2,000 unit PO QAM 09/22/19 01/15/20 History isosorbide mononitrate 60 mg PO QAM 09/22/19 01/15/20 History apixaban 5 mg tablet 5 mg PO BID 12/30/19 01/15/20 History furosemide 40 mg tablet 60 mg PO BID tab 12/30/19 01/15/20 History metoprolol succinate 50 mg 50 mg PO HS 12/30/19 01/15/20 History tablet,extended release 24 hr sotalol 80 mg tablet 80 mg PO BID 12/30/19 01/15/20 History losartan 25 mg PO HS 01/10/20 01/15/20 History testosterone [AndroGel] 2 pump TRANSDERMAL QAM 01/10/20 01/15/20 History levetiracetam [Keppra] 500 mg PO BID #60 tab 01/11/20 01/15/20 Rx spironolactone 25 mg PO QAM 01/11/20 01/15/20 History thiamine HCl (vitamin B1) [Vitamin 100 mg PO QAM #30 tab 01/11/20 01/15/20 Rx B-1] zolpidem 5 mg tablet 5 mg PO .COMPLEX PRN 90 Days #7 tab 01/15/20 01/15/20 Rx Allergies Allergy/AdvReac Type Severity Reaction Status Date / Time amoxicillin Allergy Mild RASH/ITCHIN Verified 01/15/20 23:37 G lactose AdvReac Intermediate GI SYMPTOMS Verified 01/15/20 23:37 benzalkonium chloride AdvReac Mild ITCHING/SWE Verified 01/15/20 23:37 LLING/RASH gluten AdvReac Unknown gluten Verified 01/15/20 23:37 intolerant per EGD Past Med/Surg History Medical History Alcohol abuse Anemia Arthritis CAD (coronary artery disease), [employer] coronary artery Celiac disease Chronic respiratory failure with hypoxia Chronic systolic CHF (congestive heart failure) Diabetes Emphysema of lung GERD (gastroesophageal reflux disease) Gout Hyperlipidemia Hypertension ICD (implantable cardioverter-defibrillator) in place medtronic [address] Newberry Ischemic cardiomyopathy Ischemic colitis Migraine Myocardial Infarction most recent 2013, adjust med and icd inserted Non-ST elevation [place] (NSTEMI) (Inactive) PAD (peripheral artery disease) Pituitary adenoma removal of adenoma from pituitary 2015 Thrombocytopenia Unstable angina (Inactive) Ventricular tachycardia Surgical History H/O hand surgery Right hand tendon repair History of abdominal aortic aneurysm (AAA) repair 2006 History of cardiac defibrillator placement May 2014 History of pituitary surgery August 2016 History of total hip arthroplasty right and left Hx of [id number] bypass right and left leg Family History Mother , at age 46 Breast cancer Other Cancer Denies family history of Ovarian cancer Prostate cancer Myocardial infarction Colorectal cancer Social History Preferred Language: Icelandic Communication Ability: Effective Visual Impairment: No Limitations Hearing Ability: Normal C Unix Developer Required: No Beliefs That Will Affect Care: None marital status: marital status details: no children Current Living Situation: Alone current occupational status: retired Feels Safe at Home: Yes Smoking Status: Never smoker Age Started Using Tobacco: 19 ; Age Quit Using Tobacco: 61 ; packs per day: 1.5 ; Cigarettes Per Day: 20-40 ; Number of Years Since Quit: 13 ; Second Hand Exposure: No ; Hx Alcohol Use: Yes Alcohol type: hard liquor Alcohol Intake Frequency: Daily Alcohol Intake Frequency Comment: 2-3 bourbons daily Hx Substance Use: No Childhood Exposure to Second-Hand Smoke: No Dental Care, Regularly: Yes Physical Activity Frequency: 3-4 Times per Week Seatbelt Use: always Sunscreen Use: Yes Review of Systems See HPI for pertinent positives & negatives. and A total of 10 systems reviewed and were otherwise negative Physical Exam Vital Signs Vital Signs - 24 hr 01/15/20 21:55 01/15/20 22:48 01/15/20 23:31 Temperature 36.4 C L Temperature Source Oral Pulse Rate 95 H Pulse Rate [Apical] 65 Respiratory Rate 18 14 Respiratory Effort / Characteristics Non-Labored Respiratory Depth Normal Blood Pressure 122/89 Blood Pressure [Left Arm] 114/70 Blood Pressure Mean 100 Blood Pressure Mean [Left Arm] 84 Pulse Oximetry 96 94 Oxygen Delivery Method Room Air Room Air Room Air Sepsis Recent Fever Within 48 Hours No Sepsis Action Taken by Nursing No Action Required GENERAL: The patient is awake and alert. He is somewhat anxious appearing. EYES: The conjunctivae are clear. The pupils are round and reactive. EARS, NOSE, MOUTH AND THROAT: The nose is without any evidence of any deformity. Mucous membranes are moist. Tongue is midline. NECK: The neck is nontender and supple. RESPIRATORY: Normal respiratory effort is noted there is no evidence of wheezing rhonchi or rales CARDIOVASCULAR: Regular rate and rhythm noted there no murmurs rubs or gallops normal S1 normal S2. GASTROINTESTINAL: The abdomen is soft. Abdomen is nontender. MUSCULOSKELETAL/EXTREMITIES: There is no evidence of gross deformity full range of motion is noted in the hips and shoulders. SKIN: There is no obvious evidence of any rash. Skin is pale. NEUROLOGIC: Patient is awake alert and oriented to person place and situation. He does recognize me but cannot remember my name. He is asking repetitive q uestions. He does appear to understand the answers and his speech is clear. Patellar tendon reflexes are 2+ bilaterally. Course Course 2210: Past medical records reviewed. The patient was evaluated in room B04. A c omplete history and physical exam was performed. 0030: Upon reevaluation, I discussed findings and results with the patient and his son. They verbalized agreement of the treatment plan. I spoke with Dr. Kenney of the [facility] Hospitalist [facility]. The patient will be evaluated for further management and care. Administered Medications Discontinued Medications Levetiracetam 1,000 mg/ (Dextrose) 110 mls @ 440 mls/hr IV NOW STA Stop: 01/15/20 22:36 Last Infusion: 01/16/20 00:04 Dose: 0 mls/hr Documented by: [id number] Admin: 01/15/20 23:31 Dose: 440 mls/hr Documented by: [id number] Lorazepam (Ativan) 0.5 mg in 1 mls @ 1 mls/min IV NOW STA Stop: 01/15/20 22:23 Last Admin: 01/15/20 22:56 Dose: 1 mls/min Documented by: [id number] Thiamine HCl 200 mg/ Sodium (Chloride) 52 mls @ 208 mls/hr IV NOW STA Stop: 01/16/20 00:27 Last Infusion: 01/16/20 00:51 Dose: 0 mls/hr Documented by: [id number] Admin: 01/16/20 00:32 Dose: 208 mls/hr Documented by: [id number] Medical Decision Making Differential Diagnosis Differential diagnosis:Etiologies such as metabolic, infection, hypoglycemia, electrolyte abnormalities, cardiac sources, intracerebral event, toxicologic, neurologic, as well as others were entertained Medical Records Attestation: I reviewed the patient's medical records. Home Medications Current Medication List: was personally reviewed by me Laboratory Data Attestation: I reviewed the patient's lab results. Result diagrams: 01/15/20 22:40 01/15/20 22:40 Lab Results 01/15/20 01/15/20 01/15/20 Range/Units 22:40 22:40 22:40 WBC 6.81 (4.8-10.8) K/uL RBC 5.38 (4.7-6.1) M/uL Hgb 15.4 (14.0-18.0) g/dL Hct 45.7 (42-52) % MCV 84.9 (80-100) fL MCH 28.6 (25-34) pg MCHC 33.7 (32-36) g/dL RDW Std Deviation 57.6 H (36.4-46.3) fL RDW Coeff of Dena 18.5 H (11.5-14.5) % Plt Count 155 (130-400) K/uL MPV 10.7 H (7.4-10.4) fL Immature Gran % (Auto) 0.1 % Neut % (Auto) 69.2 % Lymph % (Auto) 18.5 % Mcdonough % (Auto) 11.0 % Eos % (Auto) 0.9 % Baso % (Auto) 0.3 % Immature Gran # (Auto) 0.01 (0.00-0.02) K/uL Neut # (Auto) 4.71 (1.4-6.5) K/uL Lymph # (Auto) 1.26 (1.2-3.4) K/uL Mcdonough # (Auto) 0.75 H (0.11-0.59) K/uL Eos # (Auto) 0.06 (0-0.5) K/uL Baso # (Auto) 0.02 (0-0.2) K/uL PT 13.0 H (9.0-12.0) Seconds INR 1.3 H (0.9-1.1) APTT 28.8 (21.0-31.0) Seconds PTT Ratio 1.1 Sodium 135 L (136-145) mmol/L Potassium 4.4 (3.5-5.1) mmol/L Chloride 104 (98-107) mmol/L Carbon Dioxide 22 (21-32) mmol/L Anion Gap 9.0 (3-11) BUN 16 (7-18) mg/dl Creatinine 0.81 (0.6-1.4) mg/dl Est Cr Clr Drug Dosing Not Reportable Est GFR ( Amer) 101.5 Est GFR (Non-Af Amer) 87.6 BUN/Creatinine Ratio 20.1 H (10-20) Glucose 77 (70-99) mg/dl POC Glucose (70-99) mg/dl Calcium 9.4 (8.5-10.1) mg/dl Magnesium 1.9 (1.8-2.4) mg/dl Total Bilirubin 1.1 H (0.2-1) mg/dl AST 25 (15-37) U/L ALT 24 (12-78) U/L Alkaline Phosphatase 105 (45-117) U/L Total Creatine Kinase 41 (39-308) U/L Troponin I 0.080 H* (0-0.045) ng/ml Total Protein 7.6 (6.4-8.2) gm/dl Albumin 3.3 L (3.4-5.0) gm/dl Globulin 4.3 H (2.5-4.0) gm/dl Albumin/Globulin Ratio 0.8 L (0.9-2) TSH 0.330 (0.300-4.500) uIu/ml Prolactin ng/ml 01/15/20 01/15/20 Range/Units 22:40 22:58 WBC (4.8-10.8) K/uL RBC (4.7-6.1) M/uL Hgb (14.0-18.0) g/dL Hct (42-52) % MCV (80-100) fL MCH (25-34) pg MCHC (32-36) g/dL RDW Std Deviation (36.4-46.3) fL RDW Coeff of Dena (11.5-14.5) % Plt Count (130-400) K/uL MPV (7.4-10.4) fL Immature Gran % (Auto) % Neut % (Auto) % Lymph % (Auto) % Mcdonough % (Auto) % Eos % (Auto) % Baso % (Auto) % Immature Gran # (Auto) (0.00-0.02) K/uL Neut # (Auto) (1.4-6.5) K/uL Lymph # (Auto) (1.2-3.4) K/uL Mcdonough # (Auto) (0.11-0.59) K/uL Eos # (Auto) (0-0.5) K/uL Baso # (Auto) (0-0.2) K/uL PT (9.0-12.0) Seconds INR (0.9-1.1) APTT (21.0-31.0) Seconds PTT Ratio Sodium (136-145) mmol/L Potassium (3.5-5.1) mmol/L Chloride (98-107) mmol/L Carbon Dioxide (21-32) mmol/L Anion Gap (3-11) BUN (7-18) mg/dl Creatinine (0.6-1.4) mg/dl Est Cr Clr Drug Dosing Est GFR ( Amer) Est GFR (Non-Af Amer) BUN/Creatinine Ratio (10-20) Glucose (70-99) mg/dl POC Glucose 71 (70-99) mg/dl Calcium (8.5-10.1) mg/dl Magnesium (1.8-2.4) mg/dl Total Bilirubin (0.2-1) mg/dl AST (15-37) U/L ALT (12-78) U/L Alkaline Phosphatase (45-117) U/L Total Creatine Kinase (39-308) U/L Troponin I (0-0.045) ng/ml Total Protein (6.4-8.2) gm/dl Albumin (3.4-5.0) gm/dl Globulin (2.5-4.0) gm/dl Albumin/Globulin Ratio (0.9-2) TSH (0.300-4.500) uIu/ml Prolactin 8.50 ng/ml Imaging Data Radiologist's Impression: Radiology results as stated below per my review and the radiologist's interpretation: Preliminary Findings Only See Final Report For Complete Findings CT HEAD: 01/10/2020 No evidence of acute intracranial abnormality or skull fracture. Volume loss and small vessel disease. Postsurgical changes of the paranasal sinuses, stable Radiologist: Jovani De Dios M.D. Study ready at 00:02 and initial results transmitted at 00:05 XR chest 1V portable HISTORY: weakness COMPARISON: Chest 01/10/2020. FINDINGS: No pneumothorax. No pleural effusions. The heart remains mildly enlarged. Left-sided dual-chamber pacemaker is again noted. Punctate calcified granuloma within the left lung apex. Peripheral or and basilar interstitial thickening is noted. This is likely chronic. No evidence for pulmonary edema. Stable hazy appearance to left lung base which likely represents prominent epicardial fat. IMPRESSION: 1. Mild cardiomegaly and chronic interstitial thickening. 2. No change compared to the prior study. ACT 112: Negative or not required by law. Electronically signed by: Abelardo Deutsch M.D. 01/15/2020 10:40 PM ECG Data Attestation: I personally reviewed and interpreted this ECG as follows: Indication: + altered mental status Rate (beats per minute): 70 Rhythm: + sinus rhythm ECG Findings: + PACs and + Poor R wave progression Comparison ECG Date: from (01/10/2020) Change: no significant change Blood Pressure Blood Pressure Findings: Normal blood pressure MDM Narrative The patient is a 75-year-old male who presented to the emergency department for an evaluation of altered mental status. I am familiar with this patient and have met him many times before personally as well as in the emergency department. His presentation is seeming represents a distinct change in his normal mental status. According to his friend who accompanied him to the emergency department the patient was admitted to our facility approximately 1 week ago with similar complaints. When he was discharged it was unclear what the cause of his symptoms were. He was noted to have an episode of seizure while he was admitted to our facility last week. The patient was started on antiepileptic medications. We are unsure if the patient was compliant with his other medications including the antiseizure medications. He was loaded with IV Keppra in the emergency department. He was also given IV thiamine in the emergency department. I discussed the patient's laboratory and radiographic studies with him. He was somewhat improved on final reevaluation but I also discussed his case with the on-call [facility] hospitalist group. I am concerned given the degree of change in the patient's normal personality that this may represent an ongoing process that would mean he would be unsafe to discharge to home. Impression & Plan AMS (altered mental status), Elevated troponin Discharge Plan Visit Data Chief Complaint: Altered Mental Status Stated Complaint: VERY CONFUSED - NOT SURE WHAT MEDS WERE TAKEN ED Provider: Quirino Nagel Discharge Problem: AMS (altered mental status), Elevated troponin Patient Disposition: Being Evaluated by Hospitalist Discharge Instructions Interventions: ED Discharge Assessment Last Done: 01/16/20 01:51 Discharge Problem: AMS (altered mental status) Qualifiers: Altered mental status type: unspecified Qualified Code(s): R41.82 - Altered mental status, unspecified The scribe's documentation has been prepared under my direction and personally reviewed by me in its entirety. I confirm that the note above accurately reflects all work, treatment, procedures, and medical decision making performed by me.
[2020-01-15 23:02] LABS: INR 1.3 (0.9-1.1); Partial Thromboplastin Ratio 1.1; Partial Thromboplastin Time 28.8 Seconds (21.0-31.0)
[2020-01-15 23:13] LABS: Alanine Aminotransferase 24 U/L (12-78); Albumin Level 3.3 gm/dl (3.4-5.0); Aspartate Aminotransferase 25 U/L (15-37); BUN Creatinine Ratio 20.1 (10-20); Blood Urea Nitrogen 16 mg/dl (7-18); Calcium 9.4 mg/dl (8.5-10.1); Carbon Dioxide 22 mmol/L (21-32); Chloride 104 mmol/L (98-107); Est GFR (African American) 101.5; Est GFR (Non-African American) 87.6; Glucose 77 mg/dl (70-99); Magnesium 1.9 mg/dl (1.8-2.4); Potassium 4.4 mmol/L (3.5-5.1); Sodium 135 mmol/L (136-145)
[2020-01-15 23:29] LABS: Albumin Globulin Ratio 0.8 (0.9-2); Alkaline Phosphatase 105 U/L (45-117); Bilirubin,Total 1.1 mg/dl (0.2-1); Creatine Kinase 41 U/L (39-308); Globulin 4.3 gm/dl (2.5-4.0); Total Protein 7.6 gm/dl (6.4-8.2)
[2020-01-16] MEDS ORDERED: THIAMINE HCL 200 MG in SODIUM CHLORIDE 0.9% 50 ML IV STA (00:13)
[2020-01-16 01:08] LABS: Appearance Urine Clear (Clear); Bilirubin Urine Negative (Negative); Blood Urine Negative (Negative); Color Urine Yellow; Glucose Urine UA Negative (Negative); Ketones Urine 1+ (Negative); Leukocyte Esterase Urine Negative (Negative); Nitrite Urine Negative (Negative); Protein Urine Negative (Negative); Specific Gravity Urine 1.012 (1.000-1.030); Urobilinogen Urine Negative (Negative)
[2020-01-16] MEDS ORDERED: MAGNESIUM HYDROXIDE SUSP 30 ML UDC PO PRN (02:36)
[2020-01-16] MEDS ORDERED: ZOLPIDEM TARTRATE 5 MG TAB PO PRN (02:36)
[2020-01-16] MEDS ORDERED: NITROGLYCERIN SL 0.4 MG/TAB TAB SL PRN (02:36)
[2020-01-16] MEDS ORDERED: ALUMINUM/MAGNESIUM SUSP 30 ML UDC PO PRN (02:36)
[2020-01-16] MEDS ORDERED: ONDANSETRON INJ 2 MG/ML 2 ML VIAL IV PRN (02:36)
[2020-01-16] MEDS ORDERED: ACETAMINOPHEN 325 MG TAB PO PRN (02:36)
[2020-01-16] MEDS ORDERED: ALBUTEROL HFA 8 GM INHALER INH PRN (02:41)
--- NOTE | 2020-01-16 02:57 | History & Physical Report ---
Date of Service January 16, 2020 Assessment & Plan (1) AMS (altered mental status): Altered mental status/confusion- Concerns from last admission regarding a potential seizure disorder, the patient was given a loading dose of Keppra 1000 mg IV by the ED. With patient's regular alcohol use, he does not appear to be at risk of withdrawal at this time, will be concerned regarding the possibility of developing Wernicke's encephalopathy. We will consult neurology. Present on Admission?: Yes (2) CAD (coronary artery disease), [place] coronary artery: CAD/hypertension/PAD/CHF/ischemic cardiomyopathy/AICD/atrial fibrillation- No new findings compared to recent admission. Continue apixaban 5 mg p.o. twice daily, clopidogrel 75 mg p.o. every morning, furosemide 60 mg p.o. twice daily, isosorbide mononitrate 60 mg p.o. every morning, losartan 25 mg p.o. at bedtime, metoprolol succinate 50 mg p.o. at bedtime, sotalol 80 mg p.o. twice daily, and spironolactone 25 mg p.o. every morning. Present on Admission?: Yes (3) PAD (peripheral artery disease): See above Present on Admission?: Yes (4) Chronic systolic CHF (congestive heart failure): See above Present on Admission?: Yes (5) Seizure: On Keppra 500 mg p.o. twice daily. Did receive additional loading dose of 1000 mg IV per ED Present on Admission?: Yes (6) Hyperlipidemia: Continue atorvastatin Present on Admission?: Yes (7) Hypertension: See above Present on Admission?: Yes (8) Emphysema of lung: Continue usual inhalers Present on Admission?: Yes (9) Pituitary adenoma: No new findings on recent MRI at last visit. CT brain tonight without contrast tonight was negative Present on Admission?: Yes (10) ICD (implantable cardioverter-defibrillator) in place: See above Present on Admission?: Yes (11) Ischemic cardiomyopathy: See above Present on Admission?: Yes (12) Atrial fibrillation: See above Present on Admission?: Yes (13) GERD (gastroesophageal reflux disease): Omeprazole 40 mg p.o. twice daily to pantoprazole 40 mg p.o. twice daily Present on Admission?: Yes History of Present Illness Chief Complaint: The patient is brought to the emergency department by a friend, who had called him as he usually does, and the patient appeared to be very confused, and it was noted that his medications were not in order. Primary Care Provider: Quirino Hensley MD The patient is a 75-year-old male with a past medical history including celiac disease, alcohol abuse, PAD, CAD, chronic systolic CHF, gout, pituitary adenoma, insomnia, seizures, ICD placement, atrial fibrillation, ischemic cardiomyopathy, GERD, hyperlipidemia, hypertension and COPD. Is most recently admitted to [facility] from 01/10-01/11/2020 for confusion, which was thought possibly related to combination of alcohol withdrawal and lack of sleep. He was placed on Keppra 500 mg p.o. twice daily during that visit. It is unclear at this time, patient has been taking medications as directed, as it was reported by his friend that his living space was in an unorganized manner when he checked on the patient this evening. Allergies Allergy/AdvReac Type Severity Reaction Status Date / Time amoxicillin Allergy Mild RASH/ITCHIN Verified 01/15/20 23:37 G lactose AdvReac Intermediate GI SYMPTOMS Verified 01/15/20 23:37 benzalkonium chloride AdvReac Mild ITCHING/SWE Verified 01/15/20 23:37 LLING/RASH gluten AdvReac Unknown gluten Verified 01/15/20 23:37 intolerant per EGD Home Medications Home Medications Medication Instructions Recorded Confirmed Type atorvastatin 80 mg PO PM 11/13/18 01/15/20 History clopidogrel [Plavix] 75 mg PO QAM 11/13/18 01/15/20 History folic acid 1 mg PO HS 11/13/18 01/15/20 History omeprazole 40 mg PO BID 11/13/18 01/15/20 History albuterol sulfate 90 mcg/actuation 90 mcg INH Q6H PRN #1 ea 08/29/19 01/15/20 Rx breath activated powder inhaler nitroglycerin 0.4 mg sublingual 0.4 mg SL Q5M PRN 08/29/19 01/15/20 History tablet Trelegy Ellipta 1 inh INHALATION HS 09/22/19 01/15/20 History cholecalciferol (vitamin D3) 2,000 unit PO QAM 09/22/19 01/15/20 History isosorbide mononitrate 60 mg PO QAM 09/22/19 01/15/20 History apixaban 5 mg tablet 5 mg PO BID 12/30/19 01/15/20 History furosemide 40 mg tablet 60 mg PO BID tab 12/30/19 01/15/20 History metoprolol succinate 50 mg 50 mg PO HS 12/30/19 01/15/20 History tablet,extended release 24 hr sotalol 80 mg tablet 80 mg PO BID 12/30/19 01/15/20 History losartan 25 mg PO HS 01/10/20 01/15/20 History testosterone [AndroGel] 2 pump TRANSDERMAL QAM 01/10/20 01/15/20 History levetiracetam [Keppra] 500 mg PO BID #60 tab 01/11/20 01/15/20 Rx spironolactone 25 mg PO QAM 01/11/20 01/15/20 History thiamine HCl (vitamin B1) [Vitamin 100 mg PO QAM #30 tab 01/11/20 01/15/20 Rx B-1] zolpidem 5 mg tablet 5 mg PO .COMPLEX PRN 90 Days #7 tab 01/15/20 01/15/20 Rx Past Med/Surg History Medical History Alcohol abuse Anemia Arthritis CAD (coronary artery disease), [place] coronary artery Celiac disease Chronic respiratory failure with hypoxia Chronic systolic CHF (congestive heart failure) Diabetes Emphysema of lung GERD (gastroesophageal reflux disease) Gout Hyperlipidemia Hypertension ICD (implantable cardioverter-defibrillator) in place medtronic [address] Newberry Ischemic cardiomyopathy Ischemic colitis Migraine Myocardial Infarction most recent 2013, adjust med and icd inserted Non-ST elevation NE (NSTEMI) (Inactive) PAD (peripheral artery disease) Pituitary adenoma removal of adenoma from pituitary 2015 Thrombocytopenia Unstable angina (Inactive) Ventricular tachycardia Surgical History H/O hand surgery Right hand tendon repair History of abdominal aortic aneurysm (AAA) repair 2006 History of cardiac defibrillator placement May 2014 History of pituitary surgery August 2016 History of total hip arthroplasty right and left Hx of kstbn-ddoda-gwywaur bypass right and left leg Family History Mother , at age 46 Breast cancer Other Cancer Denies family history of Ovarian cancer Prostate cancer Myocardial infarction Colorectal cancer Social History Preferred Language: Estonian Communication Ability: Effective Visual Impairment: No Limitations Hearing Ability: Normal Mural Artist Required: No Beliefs That Will Affect Care: None marital status: marital status details: no children Current Living Situation: Alone current occupational status: retired Other Information That Helps Us Care for You: No Feels Safe at Home: No Is there a partner from a previous relationship who is making you feel unsafe now?: No Any Concerns about Your Family Situation: No W ould You Like to Speak to Someone About Your Situation: Yes Safety Concerns: Afraid for Self Smoking Status: Former smoker Age Started Using Tobacco: 19 ; Age Quit Using Tobacco: 61 ; packs per day: 1.5 ; Cigarettes Per Day: 20-40 ; Number of Years Since Quit: 13 ; Second Hand Exposure: No ; Hx Alcohol Use: Yes Alcohol type: hard liquor Alcohol Intake Frequency: Daily Alcohol Intake Frequency Comment: 2-3 bourbons daily Hx Substance Use: No Childhood Exposure to Second-Hand Smoke: No Dental Care, Regularly: Yes Physical Activity Frequency: 3-4 Times per Week Seatbelt Use: always Sunscreen Use: Yes Review of Systems Review of Systems: Unobtainable due to cognitive status I have known this patient for 20+ years, and he recognized me when I walked in room, but he was unable to carry on a conversation. His review of systems is not therefore likely to be accurate. Physical Exam Physical Exam: The patient is awake, alert and oriented 3, well developed and well nourished, normocephalic and atraumatic, lying in bed and in no acute distress. HEENT--PERRL, EOMI, mucous membranes and oropharynx dry. Neck--supple. No JVD. No bruits. Thyroid normal, trachea midline, no adenopathy. Heart--normal S1 and S2. No murmurs, rubs or gallops. Lungs--clear bilaterally, no respiratory distress, no accessory muscle use. Abdomen--normal bowel sounds and soft. Nontender. Nondistended. Extremities--no cyanosis or clubbing. No edema. Dermatologic--normal skin turgor, normal color, no abnormal lymph nodes, no rash. Neurologic--cranial nerves II through XII grossly intact. Rheumatologic--normal range of motion. Psychiatric--cooperative, pleasant. Results & Data Vital Signs (Past 12 Hours) Vital Signs Temp Pulse Pulse Resp BP BP Pulse Ox 01/16/20 00:50 79 118/79 96 01/15/20 23:31 65 14 114/70 94 01/15/20 21:55 97.5 F L 95 H 18 122/89 96 Laboratory Results Laboratory Results WBC 6.81 K/uL (4.8-10.8) 01/15/20 22:40 RBC 5.38 M/uL (4.7-6.1) 01/15/20 22:40 Hgb 15.4 g/dL (14.0-18.0) 01/15/20 22:40 Hct 45.7 % (42-52) 01/15/20 22:40 MCV 84.9 fL (80-100) 01/15/20 22:40 MCH 28.6 pg (25-34) 01/15/20 22:40 MCHC 33.7 g/dL (32-36) 01/15/20 22:40 RDW Std Deviation 57.6 fL (36.4-46.3) H 01/15/20 22:40 RDW Coeff of Dena 18.5 % (11.5-14.5) H 01/15/20 22:40 Plt Count 155 K/uL (130-400) 01/15/20 22:40 MPV 10.7 fL (7.4-10.4) H 01/15/20 22:40 Immature Gran % (Auto) 0.1 % 01/15/20 22:40 Neut % (Auto) 69.2 % 01/15/20 22:40 Lymph % (Auto) 18.5 % 01/15/20 22:40 [place] % (Auto) 11.0 % 01/15/20 22:40 Eos % (Auto) 0.9 % 01/15/20 22:40 Baso % (Auto) 0.3 % 01/15/20 22:40 Immature Gran # (Auto) 0.01 K/uL (0.00-0.02) 01/15/20 22:40 Neut # (Auto) 4.71 K/uL (1.4-6.5) 01/15/20 22:40 Lymph # (Auto) 1.26 K/uL (1.2-3.4) 01/15/20 22:40 [place] # (Auto) 0.75 K/uL (0.11-0.59) H 01/15/20 22:40 Eos # (Auto) 0.06 K/uL (0-0.5) 01/15/20 22:40 Baso # (Auto) 0.02 K/uL (0-0.2) 01/15/20 22:40 PT 13.0 Seconds (9.0-12.0) H 01/15/20 22:40 INR 1.3 (0.9-1.1) H 01/15/20 22:40 APTT 28.8 Seconds (21.0-31.0) 01/15/20 22:40 PTT Ratio 1.1 01/15/20 22:40 Sodium 135 mmol/L (136-145) L 01/15/20 22:40 Potassium 4.4 mmol/L (3.5-5.1) 01/15/20 22:40 Chloride 104 mmol/L (98-107) 01/15/20 22:40 Carbon Dioxide 22 mmol/L (21-32) 01/15/20 22:40 Anion Gap 9.0 (3-11) 01/15/20 22:40 BUN 16 mg/dl (7-18) 01/15/20 22:40 Creatinine 0.81 mg/dl (0.6-1.4) 01/15/20 22:40 Est Cr Clr Drug Dosing Not Reportable 01/15/20 22:40 Est GFR ( Amer) 101.5 01/15/20 22:40 Est GFR (Non-Af Amer) 87.6 01/15/20 22:40 BUN/Creatinine Ratio 20.1 (10-20) H 01/15/20 22:40 Glucose 77 mg/dl (70-99) 01/15/20 22:40 POC Glucose 71 mg/dl (70-99) 01/15/20 22:58 Calcium 9.4 mg/dl (8.5-10.1) 01/15/20 22:40 Magnesium 1.9 mg/dl (1.8-2.4) 01/15/20 22:40 Total Bilirubin 1.1 mg/dl (0.2-1) H 01/15/20 22:40 AST 25 U/L (15-37) 01/15/20 22:40 ALT 24 U/L (12-78) 01/15/20 22:40 Alkaline Phosphatase 105 U/L (45-117) 01/15/20 22:40 Total Creatine Kinase 41 U/L (39-308) 01/15/20 22:40 Troponin I 0.080 ng/ml (0-0.045) H* 01/15/20 22:40 Total Protein 7.6 gm/dl (6.4-8.2) 01/15/20 22:40 Albumin 3.3 gm/dl (3.4-5.0) L 01/15/20 22:40 Globulin 4.3 gm/dl (2.5-4.0) H 01/15/20 22:40 Albumin/Globulin Ratio 0.8 (0.9-2) L 01/15/20 22:40 TSH 0.330 uIu/ml (0.300-4.500) 01/15/20 22:40 Prolactin 8.50 ng/ml 01/15/20 22:40 Urine Color Yellow 01/16/20 Unknown Urine Appearance Clear (Clear) 01/16/20 Unknown Urine pH 6.0 (4.5-7.5) 01/16/20 Unknown Ur Specific [place] 1.012 (1.000-1.030) 01/16/20 Unknown Urine Protein Negative (Negative) 01/16/20 Unknown Urine Glucose (UA) Negative (Negative) 01/16/20 Unknown Urine Ketones 1+ (Negative) H 01/16/20 Unknown Urine Blood Negative (Negative) 01/16/20 Unknown Urine Nitrite Negative (Negative) 01/16/20 Unknown Urine Bilirubin Negative (Negative) 01/16/20 Unknown Urine Urobilinogen Negative (Negative) 01/16/20 Unknown Ur Leukocyte Esterase Negative (Negative) 01/16/20 Unknown [facility] [phone] XRay Report Patient: BERYL JEFFERSONAdmit Date: 01/15/20 MR#: [id number]: [address] [place] [address] DR Varela ID:[id number]: [facility] Zip[facility] [place] [address] Age: 75Location: ED Sex: M Room/Bed: Att Phy:Diagnosis: VERY CONFUSED - NOT SURE WHAT MEDS WERE TAKEN Erin Phy: Quirino Hensley MDService Date: 01/15/20 [facility] Phy: Quirino Hensley MDInterpreting Phy: Aeblardo Deutsch MD Admit Phy: Ordering Phy: Quirino Nagel, DO cc: ~ XR chest 1V portable HISTORY: weakness COMPARISON: Chest 01/10/2020. FINDINGS: No pneumothorax. No pleural effusions. The heart remains mildly enlarged. Left-sided dual-chamber pacemaker is again noted. Punctate calcified granuloma within the left lung apex. Peripheral or and basilar interstitial thickening is noted. This is likely chronic. No evidence for pulmonary edema. Stable hazy appearance to left lung base which likely represents prominent epicardial fat. IMPRESSION: 1. Mild cardiomegaly and chronic interstitial thickening. 2. No change compared to the prior study. ACT 112: Negative or not required by law. Electronically signed by: Abelardo Deutsch M.D. 01/15/2020 10:40 PM Dictated: 01/15/202237 Transcribed: 01/15/202237 Code Status & VTE Plan Code Status Full code VTE Prophylaxis Plan VTE Prophylaxis will be ordered: Yes PG Care Time/CCT Total # of Minutes Spent Total Time Spent with Patient: Total time spent is greater than 50% in coordination of care (as documented) at patient's floor/unit and/or counseling patient: Coding Level of Care Code 47607 Initial Inpt Care Lvl 3 Diagnoses AMS (altered mental status) R41.82 Altered mental status type: unspecified CAD (coronary artery disease), [place] coronary artery I25.118 [place] vs. transplanted heart: [place] heart Associated angina: with stable angina PAD (peripheral artery disease) I73.9 Chronic systolic CHF (congestive heart failure) I50.22 Seizure R56.9 Hyperlipidemia E78.5 Hyperlipidemia type: unspecified Hypertension I10 Hypertension type: essential hypertension Emphysema of lung J43.9 Pituitary adenoma D35.2 ICD (implantable cardioverter-defibrillator) in place Z95.810 Ischemic cardiomyopathy I25.5 Atrial fibrillation I48.91 GERD (gastroesophageal reflux disease) K21.9 (1) CAD (coronary artery disease), [place] coronary artery [place] vs. transplanted heart: [place] heart Associated angina: with stable angina Qualified Code(s): I25.118 - Atherosclerotic heart disease of [place] coronary artery with other forms of angina pectoris (2) Hyperlipidemia Hyperlipidemia type: unspecified Qualified Code(s): E78.5 - Hyperlipidemia, unspecified (3) Hypertension Hypertension type: essential hypertension Qualified Code(s): I10 - Essential (primary) hypertension (4) AMS (altered mental status) Altered mental status type: unspecified Qualified Code(s): R41.82 - Altered mental status, unspecified
[2020-01-16] MEDS: levETIRAcetam 500 MG TAB PO SCH ×2 (04:16→08:10)
[2020-01-16] MEDS: APIXABAN 5 MG TABLET PO SCH ×2 (04:22→08:10)
[2020-01-16] MEDS: SOTALOL HCL 80 MG TAB PO SCH ×2 (04:22→08:10)
[2020-01-16] MEDS: FUROSEMIDE 20 MG TAB PO SCH ×2 (04:26→08:10)
--- NOTE | 2020-01-16 07:10 | CT Scan Report ---
CT SCAN OF THE BRAIN WITHOUT IV CONTRAST CLINICAL HISTORY: Change in mental status. COMPARISON STUDY: CT of the brain dated 01/10/2020. TECHNIQUE: Unenhanced axial CT scan of the brain is performed from the vertex to the skull base. A do se lowering technique was utilized adhering to the principles of ALARA. CT DOSE: 614.27 mGy.cm FINDINGS: Brain parenchyma: There are age-related involutional changes noting mild to moderate patchy subcorti vivek and periventricular microangiopathic change. There is no hemorrhage, mass effect, or evidence of acute territorial ischemia by CT criteria. Baer-white matter differentiation is preserved. No extra-a xial fluid collection is seen. Ventricles, sulci, cisterns: Prominent secondary to involutional change. Intracranial vasculature: There is atherosclerotic calcification of the cavernous carotid and vertebr al arteries. Calvarium: Unremarkable. Sinuses and mastoids: There is evidence of previous paranasal sinus surgery. Trace mucosal thickening is noted in the maxillary antra. There is moderate mucosal thickening within the right sphenoid sinu s. Mild mucosal thickening is noted in the frontal and ethmoid sinuses. The mastoid air cells are wel l pneumatized. Orbits: The bony orbits are grossly intact. IMPRESSION: There is no hemorrhage, mass effect, or evidence of acute territorial ischemia by CT salma sims. ACT 112: Negative or not required by law. Electronically signed by: Jose Carlos Velazquez M.D. 01/16/2020 7:09 AM
[2020-01-16] MEDS ORDERED: ISOSORBIDE MONO EXTENDED REL 60 MG TABCR PO SCH (09:00)
[2020-01-16] MEDS ORDERED: THIAMINE HCL 100 MG TAB PO SCH (09:00)
[2020-01-16] MEDS ORDERED: PANTOprazole 40 MG TAB PO SCH (09:00)
[2020-01-16] MEDS ORDERED: SPIRONOLACTONE 25 MG TAB PO SCH (09:00)
[2020-01-16] MEDS ORDERED: CHOLECALCIFEROL 1,000 UNITS 25 MCG TAB PO SCH (09:00)
[2020-01-16] MEDS ORDERED: CLOPIDOGREL BISULFATE 75 MG TAB PO SCH (09:00)
--- NOTE | 2020-01-16 17:01 | Neurology Consultation ---
Date of Consultation January 16, 2020 Assessment & Plan (1) AMS (altered mental status): Tyler Alcala is a 75 yo man w/ complicated PMH including alcohol abuse, CAD status post ICD placement, celiac disease, chronic respiratory failure with hypoxia, CHF, diabetes, GERD, gout, hyperlipidemia, hypertension, ischemic cardiomyopathy, history of migraines, PAD, history of cardiac arrest and pituitary adenoma S/P resection who presents to [facility] [address] with complaint of altered mental status. # AMS: Unclear cause at this time. Could represent Wernicke's however he does not have the classic triad. No signs of autoimmune encephalitis or HSV ence phalitis on MRI brain last week, however given the acute onset of his symptoms, would be concerned for either infectious versus autoimmune cause to his presentation. Could also be due to taking medications inappropriately. Also not clear if he perhaps does have dementia at baseline as his brain does show generalized atrophy that includes the hippocampi. -Recommend outpatient dementia screening -Recommended the patient undergo lumbar puncture for autoimmune encephalitis versus infectious encephalitis like HSV, however patient refuses at this time -Recommend that pharmacy speak with him and have medication packets made up so that people can easily see what he is and is not taking. -Consider involving psychiatry to see if he has capacity to make his own decisions Given this interesting consult. Plan of care discussed with primary team. Please call or text with any questions. (2) Elevated troponin: (3) Alcohol abuse: (4) Celiac disease: History of Present Illness Attending Physician: Jamar Hutton MD History of Present Illness Tyler Alcala is a 75 yo man w/ complicated PMH including alcohol abuse, CAD status post ICD placement, celiac disease, chronic respiratory failure with hypoxia, CHF, diabetes, GERD, gout, hyperlipidemia, hypertension, ischemic cardiomyopathy, history of migraines, PAD, history of cardiac arrest and pituitary adenoma S/P resection who presents to [facility] [address] with complaint of altered mental status. Patient was unable to give full history and would be circular and tangential when asked questions. Per his son, his father had acute onset of altered mental status starting approximately 9 days ago. He was admitted last week for this and had extensive neurologic testing performed at that time lab work at that time included B12 599, folate greater than 24, TSH within normal, free T4 within normal, prolactin within normal, MRI of the brain that showed moderate small vessel ischemic disease bilateral hippocampal atrophy and generalized atrophy but no acute stroke, signs of autoimmune encephalitis or HSV encephalitis. He was noted to have a seizure- like event for which she was started on Keppra 5 mg twice daily. He was discharged home after receiving thiamine with plan to follow-up with neurology (Dr. Vaz) in the future. When he returned to the ER last night, son notes that he was again increasingly confused and asking "deep existential questions". He believes the stent may have been taking extra Ambien but his father reports that since no one will write him a prescription for Ambien, he has been going "skimpy" on the dose. Patient reports that he has not yet even start the Keppra. Work-up so far includes WBC 6.8, hemoglobin 15.4, platelets 155, INR 1.3 sodium 135, creatinine 0.1, glucose 77, calcium within normal, mag within normal, mildly elevated troponin 0 0.08, and UA that shows ketones. He had a repeat CT head that showed no hemorrhage or hypodensity, unchanged since last week. Had a chest x-ray that shows mild cardiomegaly and chronic interstitial thickening but no clear signs of pneumonia. He received thiamine, Ativan and 1 g Keppra load in the ED and was admitted for further work-up. On examination today, Tyler cannot directly tell me why he is here and continues to be tangential, however, he is fully oriented in all of the aspects. Discussed the possibility of having a lumbar puncture with him and he reports that unless something is going to kill him in the next year, he does not want to proceed with any further work-up for that. Allergies Allergy/AdvReac Type Severity Reaction Status Date / Time amoxicillin Allergy Mild RASH/ITCHIN Verified 01/15/20 23:37 G lactose AdvReac Intermediate GI SYMPTOMS Verified 01/15/20 23:37 benzalkonium chloride AdvReac Mild ITCHING/SWE Verified 01/15/20 23:37 LLING/RASH gluten AdvReac Unknown gluten Verified 01/15/20 23:37 intolerant per EGD Home Medications Home Medications Medication Instructions Recorded Confirmed Type atorvastatin 80 mg PO PM 11/13/18 01/15/20 History clopidogrel [Plavix] 75 mg PO QAM 11/13/18 01/15/20 History folic acid 1 mg PO HS 11/13/18 01/15/20 History omeprazole 40 mg PO BID 11/13/18 01/15/20 History albuterol sulfate 90 mcg/actuation 90 mcg INH Q6H PRN #1 ea 08/29/19 01/15/20 Rx breath activated powder inhaler nitroglycerin 0.4 mg sublingual 0.4 mg SL Q5M PRN 08/29/19 01/15/20 History tablet Trelegy Ellipta 1 inh INHALATION HS 09/22/19 01/15/20 History cholecalciferol (vitamin D3) 2,000 unit PO QAM 09/22/19 01/15/20 History isosorbide mononitrate 60 mg PO QAM 09/22/19 01/15/20 History apixaban 5 mg tablet 5 mg PO BID 12/30/19 01/15/20 History furosemide 40 mg tablet 60 mg PO BID tab 12/30/19 01/15/20 History metoprolol succinate 50 mg 50 mg PO HS 12/30/19 01/15/20 History tablet,extended release 24 hr sotalol 80 mg tablet 80 mg PO BID 12/30/19 01/15/20 History losartan 25 mg PO HS 01/10/20 01/15/20 History testosterone [AndroGel] 2 pump TRANSDERMAL QAM 01/10/20 01/15/20 History levetiracetam [Keppra] 500 mg PO BID #60 tab 01/11/20 01/15/20 Rx spironolactone 25 mg PO QAM 01/11/20 01/15/20 History thiamine HCl (vitamin B1) [Vitamin 100 mg PO QAM #30 tab 01/11/20 01/15/20 Rx B-1] Patient History Medical History Alcohol abuse Anemia Arthritis CAD (coronary artery disease), [place] coronary artery Celiac disease Chronic respiratory failure with hypoxia Chronic systolic CHF (congestive heart failure) Diabetes Emphysema of lung GERD (gastroesophageal reflux disease) Gout Hyperlipidemia Hypertension ICD (implantable cardioverter-defibrillator) in place medtronic [address] Newberry Ischemic cardiomyopathy Ischemic colitis Migraine Myocardial Infarction most recent 2013, adjust med and icd inserted Non-ST elevation AL (NSTEMI) (Inactive) PAD (peripheral artery disease) Pituitary adenoma removal of adenoma from pituitary 2015 Thrombocytopenia Unstable angina (Inactive) Ventricular tachycardia Surgical History H/O hand surgery Right hand tendon repair History of abdominal aortic aneurysm (AAA) repair 2006 History of cardiac defibrillator placement May 2014 History of pituitary surgery August 2016 History of total hip arthroplasty right and left Hx of [id number] bypass right and left leg Family History Mother , at age 46 Breast cancer Other Cancer Denies family history of Ovarian cancer Prostate cancer Myocardial infarction Colorectal cancer Social History Preferred Language: Senegalese Communication Ability: Effective Visual Impairment: No Limitations Hearing Ability: Normal Silk Presser Required: No Beliefs That Will Affect Care: None marital status: marital status details: no children Current Living Situation: Alone current occupational status: retired Feels Safe at Home: No Is there a partner from a previous relationship who is making you feel unsafe now?: No Smoking Status: Former smoker Age Started Using Tobacco: 19 ; Age Quit Using Tobacco: 61 ; packs per day: 1.5 ; Cigarettes Per Day: 20-40 ; Number of Years Since Quit: 13 ; Second Hand Exposure: No ; Hx Alcohol Use: Yes Alcohol type: hard liquor Alcohol Intake Frequency: Daily Alcohol Intake Frequency Comment: 2-3 bourbons daily Hx Substance Use: No Childhood Exposure to Second-Hand Smoke: No Dental Care, Regularly: Yes Physical Activity Frequency: 3-4 Times per Week Seatbelt Use: always Sunscreen Use: Yes Review of Systems Review of Systems: Unobtainable due to cognitive status Physical Exam Physical Exam: General Exam: GEN: NAD, sitting in chair. HEENT: No conjunctival injection, no rhinorrhea. CV: RRR, no peripheral edema PULM: Nonlabored respirations on room air. Neuro Exam: MS: Awake and Alert. Oriented to person, place, and date. Speech fluent and appropriate without dysarthria or paraphasic errors. Language intact including naming, comprehension, repetition. Cognition and memory grossly intact. Slightly inattentive, tangential. No neglect. CN: Visual edgar full. No extinction to double simultaneous stimuli. No optic disc edema on fundoscopic exam. PERRLA OU. EOMI without nystagmus. Facial sensation intact to LT. Facial muscles full and symmetric. Hearing intact to conversation. Uvula midline with symmetric palatal elevation. Shoulder shrug normal. Tongue midline. MOTOR: Normal bulk and tone. No pronator drift. BUE strength 5/5 at deltoids, biceps, triceps, wrist flexors and extensors, and hand grasp bilaterally. BLE strength 5/5 at iliopsoas, hamstrings, quadriceps, tibialis anterior, and gastrocnemius bilaterally. REFLEXES: 1+ at biceps, triceps, brachioradialis, patella and absent Achilles bilaterally. Flexor plantar responses bilaterally. SENSORY: Intact to LT without extinction to double simultaneous stimuli. Vibration and temperature intact throughout. COORDINATION: No dysmetria or ataxia on [id number]-[id number]-bdfi bilaterally. Normal Davina bilaterally. GAIT: Normal gait and arm swing. Normal Romberg. Results & Data Vital Signs (Past 12 Hours) Vital Signs Temp Pulse Pulse Pulse Resp BP Pulse Ox 01/16/20 16:04 36.4 C L 83 18 124/91 97 01/16/20 11:49 36.4 C L 68 16 110/70 95 01/16/20 08:00 62 01/16/20 07:44 36.4 C L 65 16 105/66 95 01/16/20 05:01 36.3 C L 59 L 20 105/66 93 PG Care Time/CCT Total # of Minutes Spent Total Time Spent with Patient: Total time spent is greater than 50% in coordination of care (as documented) at patient's floor/unit and/or counseling patient: Coding Level of Care Code 39672 Initial Inpt Care Lvl 3 Diagnoses AMS (altered mental status) R41.82 Altered mental status type: unspecified Elevated troponin R79.89 Alcohol abuse F10.10 Celiac disease K90.0 (1) AMS (altered mental status) Altered mental status type: unspecified Qualified Code(s): R41.82 - Altered mental status, unspecified
--- NOTE | 2020-01-16 17:45 | Discharge Summary ---
Date of Service January 16, 2020 Admission HPI Per Admitting Provider The patient is a 75-year-old male with a past medical history including celiac disease, alcohol abuse, PAD, CAD, chronic systolic CHF, gout, pituitary adenoma, insomnia, seizures, ICD placement, atrial fibrillation, ischemic cardiomyopathy, GERD, hyperlipidemia, hypertension and COPD. Is most recently admitted to [facility] from 01/10-01/11/2020 for confusion, which was thought possibly related to combination of alcohol withdrawal and lack of sleep. He was placed on Keppra 500 mg p.o. twice daily during that visit. It is unclear at this time, patient has been taking medications as directed, as it was reported by his friend that his living space was in an unorganized manner when he checked on the patient this evening. Principal Diagnosis Confusion, delusions, hallucinations Discharge Exam Constitutional WD/WN, vitals as above Eyes EOM intact bilaterally; no conjunctival abnormality ENMT external ear and nose normal, oropharynx normal Neck trachea midline, no thyromegaly normal visual inspection Respiratory normal respiratory effort, lungs clear to auscultation no respiratory distress Cardiovascular RRR, no murmur, no edema Gastrointestinal (Abdomen) Inspection/Auscultation: abdomen normal to inspection; abdomen not distended Musculoskeletal no cyanosis or clubbing, extremities motor strength 5/5 Skin no rashes, warm and dry Neurologic moves all extremities and awake Psychiatric Orientation: alert, oriented x 3, oriented to person and + guarded Eye Contact: good eye contact Speech: + pressured speech Affect: + irritable affect Mood: + irritable mood Thought Process: + tangential thought process, + looseness of associations and + perseveration; no confabulations Thought Content: + paranoid Suicidal Thoughts: denies suicidal thoughts, denies suicidal plan and denies suicidal intent Homicidal Thoughts: denies homicidal thoughts, denies homicidal plan and denies homicidal intent Cognition: recent memory grossly intact, remote memory grossly intact, attention grossly intact and language grossly intact Insight: + limited insight Judgement: + poor judgement Discharge Data Allergies Allergy/AdvReac Type Severity Reaction Status Date / Time amoxicillin Allergy Mild RASH/ITCHIN Verified 01/15/20 23:37 G lactose AdvReac Intermediate GI SYMPTOMS Verified 01/15/20 23:37 benzalkonium chloride AdvReac Mild ITCHING/SWE Verified 01/15/20 23:37 LLING/RASH gluten AdvReac Unknown gluten Verified 01/15/20 23:37 intolerant per EGD Consultations 01/16/20 00:54 ED Decision to Admit Stat 01/16/20 02:36 Consult Case Management - Discharge Planning Routine Consult Neurology Routine Ordered Studies 01/15/20 22:22 CT head/brain wo con Urgent Hospital Course (1) AMS (altered mental status): Concerns from last admission regarding a potential seizure disorder; however, no seizure activity seen. - He was very tangential for me. He often had paranoid thoughts. (For example, he expressed skepticism that he was actually at [facility] saying, "That's what people tell me, but I have no idea if it's true. I just see that I'm in a brick building." He was AAOx4 otherwise. He could say why he was in the hospital, though he denied that he was actually confused; just that his friend was concerned about it. Neurology evaluated him and felt he did not fit a clear Wernicke-Korsakov syndrome, but did feel he may have some type of undifferentiated dementia. He became very irritated and argumentative for me. I did discuss his case with psychiatry who feel that he cannot be kept against his will. I asked him to spend one more night in the hospital to be seen by Dr. Newberry tomorrow, but he assured me he would see him before me. He asked me if I could "guarantee" I would see Dr. Newberry before him, and when I said I could not guarantee this to him, he said "Ah leong!" and said that this was a reason to go home. I did ask him to stop using the Ambien which he would not do. I told him to stop taking the Keppra, which he again reminded me he was not taking anyhow. I will discuss him with Dr. Newberry in case he follows with Dr. Newberry. I asked him to see psychiatry, but he was very dismissive of this. (2) CAD (coronary artery disease), [place] coronary artery: No new findings compared to recent admission. - Continue home meds (3) PAD (peripheral artery disease): See above (4) Chronic systolic CHF (congestive heart failure): See above (5) Seizure: On Keppra 500 mg p.o. twice daily. (6) Hyperlipidemia: Continue atorvastatin (7) Hypertension: See above (8) Emphysema of lung: Continue usual inhalers (9) Pituitary adenoma: No new findings on recent MRI at last visit. CT brain tonight without contrast tonight was negative (10) ICD (implantable cardioverter-defibrillator) in place: See above (11) Ischemic cardiomyopathy: See above (12) Atrial fibrillation: See above (13) GERD (gastroesophageal reflux disease): Omeprazole 40 mg p.o. twice daily to pantoprazole 40 mg p.o. twice daily Total Time Total Time Spent Total Time Spent (In Minutes): 35 Discharge Plan Discharge Items Patient Disposition: Home - Home Health Services Reason For Visit: ALTERED MENTAL STATUS Discharge Diagnosis: Confusion, paranoia, hallucinations Activity: Resume your previous activity Non-emergency contact: Primary Care Provider and Sales Ledger Clerk Call non-emergency contact if: your symptoms worsen and your temperature is above 101 Follow-up/Referrals: Quirino Hensley MD [Primary Care Provider] - 01/21/20 11:00 am (Scheduled with Anupama Jordan) Tera Newberry MD [Physician] - Diet: Heart Healthy Addtl Attending Provider Instructions: Please do not take any Ambien or the Keppra. Please follow up with Dr. Newberry in his office. Please follow up with Dr. Hensley. Please follow up with psychiatry as an outpatient if you are willing. Pending Studies at Discharge: No Stand-Alone Forms: [facility], Sm[facility] Cessation Medications and DC Order Prescriptions: Continued nitroglycerin [Nitrostat] 0.4 mg tablet, sublingual 0.4 mg SL Q5M PRN (Reason: Chest Pain) RF: 0 albuterol sulfate 90 mcg/actuation aerosol powdr breath activated 90 mcg INH Q6H PRN (Reason: shortness of breath or wheezing) Qty: 1 RF: 2 furosemide 40 mg tablet 60 mg PO BID RF: 0 metoprolol succinate 50 mg tablet extended release 24 hr 50 mg PO HS RF: 0 Eliquis 5 mg tablet 5 mg PO BID RF: 0 sotalol 80 mg tablet 80 mg PO BID RF: 0 atorvastatin 80 mg Tablet 80 mg PO PM RF: 0 clopidogrel [Plavix] 75 mg Tablet 75 mg PO QAM RF: 0 omeprazole 20 mg Capsule,Delayed Release(Dr/Ec) 40 mg PO BID RF: 0 folic acid 1 mg Tablet 1 mg PO HS RF: 0 losartan 25 mg tablet 25 mg PO HS RF: 0 testosterone [AndroGel] 20.25 mg/1.25 gram (1.62 %) gel in metered-dose pump 2 pump transdermal QAM RF: 0 spironolactone 25 mg tablet 25 mg PO QAM RF: 0 thiamine HCl (vitamin B1) [Vitamin B-1] 100 mg Tablet 100 mg PO QAM Qty: 30 RF: 0 cholecalciferol (vitamin D3) 2,000 unit Tablet 2,000 unit PO QAM RF: 0 isosorbide mononitrate 60 mg tablet extended release 24 hr 60 mg PO QAM RF: 0 Trelegy Ellipta 100-62.5-25 mcg blister with device 1 inh inhalation HS RF: 0 Discontinued levetiracetam [Keppra] 500 mg tablet 500 mg PO BID Qty: 60 RF: 0 Discharge Orders: Discharge Order (Routine); Ordered 01/16/20 Ordered By: Jamar Hutton Admission Data Admit Date/Time: 01/16/20 00:33 Attending Provider: Jamar Hutton Admit Provider: Evan Kenney Primary Care Provider: Quirino Hensley Other Providers: Tin Vaz III ; Jamar Hutton ; [place] Coding Level of Care Code D/C Day Management >30 mins Diagnoses AMS (altered mental status) R41.82 Altered mental status type: unspecified CAD (coronary artery disease), [place] coronary artery I25.118 Associated angina: with stable angina [place] vs. transplanted heart: unga heart PAD (peripheral artery disease) I73.9 Chronic systolic CHF (congestive heart failure) I50.22 Seizure R56.9 Hyperlipidemia E78.5 Hyperlipidemia type: unspecified Hypertension I10 Hypertension type: essential hypertension Emphysema of lung J43.9 Pituitary adenoma D35.2 ICD (implantable cardioverter-defibrillator) in place Z95.810 Ischemic cardiomyopathy I25.5 Atrial fibrillation I48.91 GERD (gastroesophageal reflux disease) K21.9
[2020-01-16] MEDS ORDERED: LOSARTAN POTASSIUM 25 MG TAB PO SCH (21:00)
[2020-01-16] MEDS ORDERED: FOLIC ACID 1 MG TAB PO SCH (21:00)
[2020-01-16] MEDS ORDERED: ATORVASTATIN 40 MG TAB PO SCH (21:00)
[2020-01-16] MEDS ORDERED: METOPROLOL SUCC 50MG EXT REL TAB PO SCH (21:00)
--- NOTE | 2020-01-16 21:20 | Electrocardiogram Report ---
Test Reason : Blood Pressure : / mmHG Vent. Rate : 070 BPM Atrial Rate : 070 BPM P-R Int : 206 ms QRS Dur : 110 ms QT Int : 428 ms P-R-T Axes : 030 -30 075 degrees QTc Int : 462 ms Sinus rhythm with Premature atrial complexes with intermittent atrial-paced complexes Left axis deviation Inferior infarct (cited on or before 04-JUN-1995) Abnormal ECG When compared with ECG of 10-JAN-2020 15:55, Premature atrial complexes are now Present Atrial paced complexes are now present Confirmed by Gaurang De Leon ([id number]) on 01/16/2020 9:19:40 PM Referred By: REFERRED SELF Confirmed By:Gaurang De Leon
== END 2020-01-16 19:00 | disposition home health service (06) | DRG 948 ==
LOC: ED 21:46 → 2N 01-16 00:33 → INTOOBSV 01-16 00:33 → SUATTDRO 01-16 00:33 → 2N 01-16 01:51

== ENCOUNTER 2020-01-17 08:38 | Observation (INO) ==
[2020-01-17] MEDS ORDERED: SODIUM CHLORIDE 0.9% 1000ML 500 ML IV ONE (09:14)
[2020-01-17] MEDS ORDERED: LORazepam 2 MG/ML VIAL (IM USE) IM STA (09:44)
[2020-01-17] MEDS ORDERED: HALOPERIDOL LACTATE 5 MG/ML 1 ML VIAL IM STA (09:44)
[2020-01-17] MEDS ORDERED: BENZTROPINE MESYLATE 1 MG/ML 2 ML AMP IV STA (10:55)
[2020-01-17 11:04] LABS: Hematocrit (blood only) 40.9 % (42-52); Hemoglobin 13.6 g/dL (14.0-18.0); Mean Corpuscular Hgb Conc 33.3 g/dL (32-36); Mean Corpuscular Volume 84.3 fL (80-100); Mean Platelet Volume 10.2 fL (7.4-10.4); Platelet Count 149 K/uL (130-400); RDW Standard Deviation 55.8 fL (36.4-46.3); Red Blood Count 4.85 M/uL (4.7-6.1); White Blood Count 6.03 K/uL (4.8-10.8)
--- NOTE | 2020-01-17 11:04 | Emergency Department Note ---
ED Visit Note Patient was seen in conjunction with Dr. Chaves. Please see his note for medical decision making. . Resident Activity Tracking Resident Involvement: Resident Care Provided Care Provided: Adult ED
[2020-01-17 11:17] LABS: INR 1.3 (0.9-1.1); Partial Thromboplastin Time 27.4 Seconds (21.0-31.0); Prothrombin Time 13.5 Seconds (9.0-12.0)
[2020-01-17 11:27] LABS: Albumin Level 3.1 gm/dl (3.4-5.0); BUN Creatinine Ratio 24.4 (10-20); Calcium 9.2 mg/dl (8.5-10.1); Creatinine Clr Calc Pharmacy 63.3 ml/min; Est GFR (African American) 86.6; Est GFR (Non-African American) 74.7; Magnesium 1.9 mg/dl (1.8-2.4); Potassium 3.8 mmol/L (3.5-5.1)
[2020-01-17 11:35] LABS: Albumin Globulin Ratio 0.8 (0.9-2); Bilirubin,Total 0.8 mg/dl (0.2-1); Creatine Kinase MB 3.4 ng/ml (0.5-3.6); Total Protein 7.1 gm/dl (6.4-8.2); Troponin I 0.062 ng/ml (0-0.045)
--- NOTE | 2020-01-17 11:40 | CT Scan Report ---
HEAD CT NONCONTRAST CT DOSE: 749.40 mGy.cm HISTORY: Altered mental status. TECHNIQUE: Multiaxial CT images of the head were performed without the use of intravenous contrast. A utomated exposure control was utilized for this study. A dose lowering technique was utilized adheri ng to the principles of ALARA. Comparison: Head CT 01/15/2020. Findings: Evidence for previous paranasal sinus surgery. Moderate mucosal thickening and debris noted at the partially resected sphenoid sinuses. This remains unchanged. The mastoid air cells are clear. The calvarium and skull base are intact. There is no mass, hematoma, midline shift, acute infarct. W corinne matter hypodensity is nonspecific but suggestive of microvascular ischemic change. The ventricle s and sulci demonstrate mild age-related involutional changes. Impression: No significant change compared to the prior study. No acute intracranial abnormality. ACT 112: Negative or not required by law. Electronically signed by: Abelardo Deutsch M.D. 01/17/2020 11:38 AM
--- NOTE | 2020-01-17 11:42 | XRay Report ---
XR chest 1V portable HISTORY: Altered mental status. COMPARISON: Chest 01/15/2020. FINDINGS: Stable cardiomegaly and chronic interstitial thickening. No new focal lung consolidations t o suggest pneumonia. No evidence for pulmonary edema. Left-sided pacemaker/defibrillator is again not ed. No pleural effusions. No pneumothorax. IMPRESSION: No significant change compared to the prior study. No acute process. Cardiomegaly and chronic interst itial thickening persists. ACT 112: Negative or not required by law. Electronically signed by: Abelardo Deutsch M.D. 01/17/2020 11:41 AM
[2020-01-17 12:40] LABS: Influenza A virus by PCR Neg for Influ A (Neg); Influenza B virus by PCR Neg for Influ B (Neg)
[2020-01-17 13:32] LABS: Amphetamines+Metham, Urine Neg (Neg); Barbiturates, Urine Neg (Neg); Benzodiazepine, Urine Neg (Neg); Cocaine, Urine Neg (Neg); MDMA (Ecstacy), Urine Neg (Neg); Methadone, Urine Neg (Neg); Opiate, Urine Neg (Neg); Phencyclidine, Urine Neg (Neg)
[2020-01-17] MEDS ORDERED: DOCUSATE SODIUM 100 MG CAP PO PRN (13:51)
[2020-01-17] MEDS ORDERED: ACETAMINOPHEN 325 MG TAB PO PRN (13:51)
[2020-01-17 14:30] LABS: Base Excess VBG 2.3 mEq/L; HCO3 VBG 28 mmol/L; Oxygen Saturation VBG < 60.0 %; PCO2 VBG 50 mmHg (38-50); PO2 VBG 26 mmHg; pH VBG 7.37 (7.36-7.41)
[2020-01-17] MEDS ORDERED: ALBUTEROL HFA 8 GM INHALER INH PRN (14:38)
--- NOTE | 2020-01-17 14:50 | History & Physical Report ---
Date of Service January 17, 2020 Assessment & Plan (1) AMS (altered mental status): 75yo C male with multiple medical problems presenting with AMS, etiology unclear at this time. Labs and images unremarkable. Patient has had recent workup for the same to include a normal brain MRI and labs. No medication changes, mild hyponatremia with Wx=956, CT head unremarkable, no history of trauma, TSH within normal limits of 0.628, EtOH and drug screen negative, Lyme negative, VBG with no hypoxia/hypercarbia, B12 normal at 599 on 01/11/20, Folate >24, Ammonia normal 21.4. No risk factors for HIV. ?infectious encephalitis -Admit to medical floor with telemetry -Will check UA, -Pacer interrogation - doubt transient arrhythmia. Patient presently in NSR -Check RPR -LP ordered - will not perform bedside at this time as patient is on anticoagulation. Will hold Apixaban and Plavix for now -Neurology consultation appreciated -Psychiatry consultation appreciated -1:1 Observation Present on Admission?: Yes (2) Elevated troponin: Troponin = 0.062 which is downtrending from previous. No EKG findings of acute ischemic -Continue to monitor -Holding Plavix for LP -Continue Atorvastatin -Continue Metoprolol -Continue Losartan -Continue Imdur Present on Admission?: Yes (3) Alcohol abuse: EtOH level undetectable. No stigmata of Wernicke's per neurology evaluation during prior admission -Continue PO thiamine Present on Admission?: Yes (4) PAD (peripheral artery disease): Chronic -Continue Plavix and Atorvastatin Present on Admission?: Yes (5) CAD (coronary artery disease), [place] coronary artery: As above, downtrending troponin, no acute EKG evidence of ischemia -Holding Plavix for now -Continue Metoprolol, Atorvastatin, Losartan Present on Admission?: Yes (6) Chronic systolic CHF (congestive heart failure): Patient with CAD, ICM. Patient appears mildly volume contracted on exam. No evidence of decompensated CHF -Continue Lasix, Spironolactone -Continue Losartan, Metoprolol and Imdur Present on Admission?: Yes (7) Chronic respiratory failure with hypoxia: Stable. Adequate oxygenation and ventilation on room air. CXR unremarkable -Continue Trelegy -Continue Albuterol Present on Admission?: Yes (8) Pituitary adenoma: s/p removal -noted Present on Admission?: Yes (9) Seizure: Patient presently not taking his Keppra -Monitor for seizures Present on Admission?: Yes (10) Atrial fibrillation: Presently in NSR -Continue Sotalol -Continue Metoprolol -Continue Apixaban Present on Admission?: Yes (11) GERD (gastroesophageal reflux disease): Chronic -Continue Omeprazole (12) Hyperlipidemia: Chronic. Stable -Continue Atorvastatin F/E/N - monitor electrolytes. Heart healthy diet as tolerated when mental status improves. PPx - holding Apixaban, continue Omeprazole Code - Full Disposition - Observation to medical floor History of Present Illness Chief Complaint: Altered mental status Primary Care Provider: Quirino Hesnley MD 75-year-old male with history of hypertension/hyperlipidemia/diabet es/CAD with ischemic cardiomyopathy status post AICD placement, pituitary adenoma status post resection, alcohol abuse in remission and nocturnal hypoxia on oxygen nightly. He presents to the ER today with friends with altered mental status. Mr. Alcala was admitted to [facility] from for confusion thought to be secondary to alcohol withdrawal and lack of sleep. He was administered a loading dose of Keppra and started on Keppra twice daily for witnessed seizure. MRI brain was obtained during that visit and found to be unremarkable. He was discharged home. His friends state that his mental status never returned to baseline. He continued to have confusion, bizarre thoughts and poor memory. He returned to [facility] on 01/16/2020 with confusion. He was evaluated by neurology during that admission and diagnoses such as Wernicke's encephalopathy, infectious versus autoimmune causes of AMS were entertained. A lumbar puncture was recommended however, the patient refused. He was discharged at his behest on 01/16 before etiology of encephalopathy could be discovered. He had a friend stay with him last evening and reportedly had about 5 to 6 hours of sleep. However, when he woke this morning he was quite argumentative agitated. Also quite confused with loss of memory,bizarre thoughts, tangential thinking and paranoia. Upon arrival to the ER patient afebrile, hemodynamically stable but with agitation competitive to care. He was administered 10 mg of Haldol and 2 mg of Ativan for sedation. I evaluated him after this therefore, history was obtained from friends at bedside. Patient unable to provide history or participate in exam. Friends report that patient symptoms have been ongoing and progressive for the last 2 weeks, see details above. Prior to this, the patient has always been organized, foundry tender and pleasant. 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 His friends deny any history of prior psychiatric illnesses or neurological disease. They report no concern for underlying dementia. They state that he does not get much sleep at baseline but this is specifically worsened over the last 3 months. He has also began worrying and was perseverating over his finances. Patient with no sick contacts recently. No recent illnesses. He traveled to [place] for a golf trip in the past but no recent travel otherwise. No known tick bites or mosquito bites. No recreational drug use or supplements. Patient is not sexually active. ER course: Benztropine, Haldol, Ativan, normal saline Allergies Allergy/AdvReac Type Severity Reaction Status Date / Time amoxicillin Allergy Mild RASH/ITCHIN Verified 01/17/20 09:26 G lactose AdvReac Intermediate GI SYMPTOMS Verified 01/17/20 09:26 benzalkonium chloride AdvReac Mild ITCHING/SWE Verified 01/17/20 09:26 LLING/RASH gluten AdvReac Unknown gluten Verified 01/17/20 09:26 intolerant per EGD Home Medications Home Medications Medication Instructions Recorded Confirmed Type atorvastatin 80 mg PO PM 11/13/18 01/17/20 History clopidogrel [Plavix] 75 mg PO QAM 11/13/18 01/17/20 History folic acid 1 mg PO HS 11/13/18 01/17/20 History omeprazole 40 mg PO BID 11/13/18 01/17/20 History albuterol sulfate 90 mcg/actuation 90 mcg INH Q6H PRN #1 ea 08/29/19 01/17/20 Rx breath activated powder inhaler nitroglycerin 0.4 mg sublingual 0.4 mg SL Q5M PRN 08/29/19 01/17/20 History tablet Trelegy Ellipta 1 inh INHALATION HS 09/22/19 01/17/20 History cholecalciferol (vitamin D3) 2,000 unit PO QAM 09/22/19 01/17/20 History isosorbide mononitrate 60 mg PO QAM 09/22/19 01/17/20 History apixaban 5 mg tablet 5 mg PO BID 12/30/19 01/17/20 History furosemide 40 mg tablet 60 mg PO BID tab 12/30/19 01/17/20 History metoprolol succinate 50 mg 50 mg PO HS 12/30/19 01/17/20 History tablet,extended release 24 hr sotalol 80 mg tablet 80 mg PO BID 12/30/19 01/17/20 History losartan 25 mg PO HS 01/10/20 01/17/20 History testosterone [AndroGel] 2 pump TRANSDERMAL QAM 01/10/20 01/17/20 History spironolactone 25 mg PO QAM 01/11/20 01/17/20 History thiamine HCl (vitamin B1) [Vitamin 100 mg PO QAM #30 tab 01/11/20 01/17/20 Rx B-1] Past Med/Surg History Social History Preferred Language: [place]ese Communication Ability: Effective Visual Impairment: No Limitations Hearing Ability: Normal Reserve Operator Required: No Beliefs That Will Affect Care: None marital status: marital status details: no children Current Living Situation: Alone current occupational status: retired Other Information That Helps Us Care for You: No Feels Safe at Home: Yes Safety Concerns: Feels Safe At This Time Smoking Status: Former smoker Age Started Using Tobacco: 19 ; Age Quit Using Tobacco: 61 ; packs per day: 1.5 ; Cigarettes Per Day: 20-40 ; Number of Years Since Quit: 13 ; Second Hand Exposure: No ; Hx Alcohol Use: Yes Alcohol type: hard liquor Alcohol Intake Frequency: Daily Alcohol Intake Frequency Comment: 2-3 bourbons daily Hx Substance Use: No Childhood Exposure to Second-Hand Smoke: No Dental Care, Regularly: Yes Physical Activity Frequency: 3-4 Times per Week Seatbelt Use: always Sunscreen Use: Yes Review of Systems Review of Systems: Unobtainable due to cognitive status Physical Exam Physical Exam: General: patient somnolent, opens eyes to voice then falls back asleep, non-toxic in appearance Skin: warm, dry, intact, no rashes or lesions HEENT: NC/AT, PERRL, anicteric sclera, conjunctiva without injection, external ear normal to inspection and nontender, nares patent, moist mucus membranes, dentition intact, no oropharyngeal lesions, neck supple, trachea midline, no LAD, no thyromegaly, no JVD Heart: +S1/S2, regular, no m/r/g Lungs: equal air entry bilaterally, no rales/rhonchi/wheezes Abd: +BS, soft, ND, no masses/organomegaly/ascites Ext: warm, 2+ pulses in UE/LE bilaterally, no clubbing/cyanosis or edema Neuro: Patient somnolent after receiving medications, opens eyes to verbal stimuli, withdraws 4 extremities from pain, not following commands at this time Results & Data Vital Signs (Past 12 Hours) Vital Signs Temp Pulse Resp BP Pulse Ox 01/17/20 13:21 69 18 124/81 98 01/17/20 12:01 61 16 01/17/20 11:31 65 16 01/17/20 11:01 66 0 L 01/17/20 10:51 65 2 L 01/17/20 10:17 115/81 01/17/20 09:04 36.8 C 80 20 139/93 96 01/17/20 09:00 74 19 123/81 94 01/17/20 08:47 81 11 L 96 01/17/20 08:43 76 10 L 139/93 97 Laboratory Results Lab Results 01/17/20 01/17/20 01/17/20 Range/Units 10:52 10:52 10:52 WBC 6.03 (4.8-10.8) K/uL RBC 4.85 (4.7-6.1) M/uL Hgb 13.6 L (14.0-18.0) g/dL Hct 40.9 L (42-52) % MCV 84.3 (80-100) fL MCH 28.0 (25-34) pg MCHC 33.3 (32-36) g/dL RDW Std Deviation 55.8 H (36.4-46.3) fL RDW Coeff of Dena 18.0 H (11.5-14.5) % Plt Count 149 (130-400) K/uL MPV 10.2 (7.4-10.4) fL ESR (0-14) mm/hr PT 13.5 H (9.0-12.0) Seconds INR 1.3 H (0.9-1.1) APTT 27.4 (21.0-31.0) Seconds PTT Ratio 1.0 VBG pH (7.36-7.41) VBG pCO2 (38-50) mmHg VBG pO2 mmHg VBG HCO3 mmol/L VBG O2 Saturation % VBG Base Excess mEq/L Barometric Pressure mm/Hg Sodium 135 L (136-145) mmol/L Potassium 3.8 (3.5-5.1) mmol/L Chloride 106 (98-107) mmol/L Carbon Dioxide 23 (21-32) mmol/L Anion Gap 6.0 (3-11) BUN 24 H (7-18) mg/dl Creatinine 0.99 (0.6-1.4) mg/dl Est Cr Clr Drug Dosing 63.3 ml/min Est GFR ( Amer) 86.6 Est GFR (Non-Af Amer) 74.7 BUN/Creatinine Ratio 24.4 H (10-20) Glucose 109 H (70-99) mg/dl Calcium 9.2 (8.5-10.1) mg/dl Phosphorus (2.5-4.9) mg/dl Magnesium 1.9 (1.8-2.4) mg/dl Total Bilirubin 0.8 (0.2-1) mg/dl AST 23 (15-37) U/L ALT 23 (12-78) U/L Alkaline Phosphatase 94 (45-117) U/L Ammonia (11-32) umol/L Total Creatine Kinase 131 (39-308) U/L CK-MB (CK-2) 3.4 (0.5-3.6) ng/ml CK/CKMB % Calc 2.6 (0-3.0) Troponin I 0.062 H* (0-0.045) ng/ml C-Reactive Protein (0-0.29) mg/dl Total Protein 7.1 (6.4-8.2) gm/dl Albumin 3.1 L (3.4-5.0) gm/dl Globulin 4.0 (2.5-4.0) gm/dl Albumin/Globulin Ratio 0.8 L (0.9-2) TSH (0.300-4.500) uIu/ml Urine Opiates Screen (Neg) Ur Methadone, Qual (Neg) Urine Barbiturates (Neg) Ur Phencyclidine (PCP) (Neg) U Amphetamin/Meth Scrn (Neg) MDMA (Ecstasy) Screen (Neg) U Benzodiazepines Scrn (Neg) Ur Cocaine Metabolite (Neg) U Marijuana (THC) Screen (Neg) Ethyl Alcohol mg/dL (0-3) mg/dl Influenza Type A (PCR) (Neg) Influenza Type B (PCR) (Neg) 01/17/20 01/17/20 01/17/20 Range/Units 11:34 11:48 13:05 WBC (4.8-10.8) K/uL RBC (4.7-6.1) M/uL Hgb (14.0-18.0) g/dL Hct (42-52) % MCV (80-100) fL MCH (25-34) pg MCHC (32-36) g/dL RDW Std Deviation (36.4-46.3) fL RDW Coeff of Dena (11.5-14.5) % Plt Count (130-400) K/uL MPV (7.4-10.4) fL ESR (0-14) mm/hr PT (9.0-12.0) Seconds INR (0.9-1.1) APTT (21.0-31.0) Seconds PTT Ratio VBG pH (7.36-7.41) VBG pCO2 (38-50) mmHg VBG pO2 mmHg VBG HCO3 mmol/L VBG O2 Saturation % VBG Base Excess mEq/L Barometric Pressure mm/Hg Sodium (136-145) mmol/L Potassium (3.5-5.1) mmol/L Chloride (98-107) mmol/L Carbon Dioxide (21-32) mmol/L Anion Gap (3-11) BUN (7-18) mg/dl Creatinine (0.6-1.4) mg/dl Est Cr Clr Drug Dosing ml/min Est GFR ( Amer) Est GFR (Non-Af Amer) BUN/Creatinine Ratio (10-20) Glucose (70-99) mg/dl Calcium (8.5-10.1) mg/dl Phosphorus (2.5-4.9) mg/dl Magnesium (1.8-2.4) mg/dl Total Bilirubin (0.2-1) mg/dl AST (15-37) U/L ALT (12-78) U/L Alkaline Phosphatase (45-117) U/L Ammonia (11-32) umol/L Total Creatine Kinase (39-308) U/L CK-MB (CK-2) (0.5-3.6) ng/ml CK/CKMB % Calc (0-3.0) Troponin I (0-0.045) ng/ml C-Reactive Protein (0-0.29) mg/dl Total Protein (6.4-8.2) gm/dl Albumin (3.4-5.0) gm/dl Globulin (2.5-4.0) gm/dl Albumin/Globulin Ratio (0.9-2) TSH (0.300-4.500) uIu/ml Urine Opiates Screen Neg (Neg) Ur Methadone, Qual Neg (Neg) Urine Barbiturates Neg (Neg) Ur Phencyclidine (PCP) Neg (Neg) U Amphetamin/Meth Scrn Neg (Neg) MDMA (Ecstasy) Screen Neg (Neg) U Benzodiazepines Scrn Neg (Neg) Ur Cocaine Metabolite Neg (Neg) U Marijuana (THC) Screen Neg (Neg) Ethyl Alcohol mg/dL < 3.0 (0-3) mg/dl Influenza Type A (PCR) Neg for Influ A (Neg) Influenza Type B (PCR) Neg for Influ B (Neg) 01/17/20 01/17/20 01/17/20 Range/Units 14:07 14:07 14:07 WBC (4.8-10.8) K/uL RBC (4.7-6.1) M/uL Hgb (14.0-18.0) g/dL Hct (42-52) % MCV (80-100) fL MCH (25-34) pg MCHC (32-36) g/dL RDW Std Deviation (36.4-46.3) fL RDW Coeff of Dena (11.5-14.5) % Plt Count (130-400) K/uL MPV (7.4-10.4) fL ESR 36 H (0-14) mm/hr PT (9.0-12.0) Seconds INR (0.9-1.1) APTT (21.0-31.0) Seconds PTT Ratio VBG pH (7.36-7.41) VBG pCO2 (38-50) mmHg VBG pO2 mmHg VBG HCO3 mmol/L VBG O2 Saturation % VBG Base Excess mEq/L Barometric Pressure mm/Hg Sodium (136-145) mmol/L Potassium (3.5-5.1) mmol/L Chloride (98-107) mmol/L Carbon Dioxide (21-32) mmol/L Anion Gap (3-11) BUN (7-18) mg/dl Creatinine (0.6-1.4) mg/dl Est Cr Clr Drug Dosing ml/min Est GFR ( Amer) Est GFR (Non-Af Amer) BUN/Creatinine Ratio (10-20) Glucose (70-99) mg/dl Calcium (8.5-10.1) mg/dl Phosphorus 4.0 (2.5-4.9) mg/dl Magnesium (1.8-2.4) mg/dl Total Bilirubin (0.2-1) mg/dl AST (15-37) U/L ALT (12-78) U/L Alkaline Phosphatase (45-117) U/L Ammonia 21.4 (11-32) umol/L Total Creatine Kinase (39-308) U/L CK-MB (CK-2) (0.5-3.6) ng/ml CK/CKMB % Calc (0-3.0) Troponin I (0-0.045) ng/ml C-Reactive Protein 1.08 H (0-0.29) mg/dl Total Protein (6.4-8.2) gm/dl Albumin (3.4-5.0) gm/dl Globulin (2.5-4.0) gm/dl Albumin/Globulin Ratio (0.9-2) TSH 0.628 (0.300-4.500) uIu/ml Urine Opiates Screen (Neg) Ur Methadone, Qual (Neg) Urine Barbiturates (Neg) Ur Phencyclidine (PCP) (Neg) U Amphetamin/Meth Scrn (Neg) MDMA (Ecstasy) Screen (Neg) U Benzodiazepines Scrn (Neg) Ur Cocaine Metabolite (Neg) U Marijuana (THC) Screen (Neg) Ethyl Alcohol mg/dL (0-3) mg/dl Influenza Type A (PCR) (Neg) Influenza Type B (PCR) (Neg) 01/17/20 Range/Units 14:07 WBC (4.8-10.8) K/uL RBC (4.7-6.1) M/uL Hgb (14.0-18.0) g/dL Hct (42-52) % MCV (80-100) fL MCH (25-34) pg MCHC (32-36) g/dL RDW Std Deviation (36.4-46.3) fL RDW Coeff of Dena (11.5-14.5) % Plt Count (130-400) K/uL MPV (7.4-10.4) fL ESR (0-14) mm/hr PT (9.0-12.0) Seconds INR (0.9-1.1) APTT (21.0-31.0) Seconds PTT Ratio VBG pH 7.37 (7.36-7.41) VBG pCO2 50 (38-50) mmHg VBG pO2 26 mmHg VBG HCO3 28 mmol/L VBG O2 Saturation < 60.0 % VBG Base Excess 2.3 mEq/L Barometric Pressure 736.6 mm/Hg Sodium (136-145) mmol/L Potassium (3.5-5.1) mmol/L Chloride (98-107) mmol/L Carbon Dioxide (21-32) mmol/L Anion Gap (3-11) BUN (7-18) mg/dl Creatinine (0.6-1.4) mg/dl Est Cr Clr Drug Dosing ml/min Est GFR ( Amer) Est GFR (Non-Af Amer) BUN/Creatinine Ratio (10-20) Glucose (70-99) mg/dl Calcium (8.5-10.1) mg/dl Phosphorus (2.5-4.9) mg/dl Magnesium (1.8-2.4) mg/dl Total Bilirubin (0.2-1) mg/dl AST (15-37) U/L ALT (12-78) U/L Alkaline Phosphatase (45-117) U/L Ammonia (11-32) umol/L Total Creatine Kinase (39-308) U/L CK-MB (CK-2) (0.5-3.6) ng/ml CK/CKMB % Calc (0-3.0) Troponin I (0-0.045) ng/ml C-Reactive Protein (0-0.29) mg/dl Total Protein (6.4-8.2) gm/dl Albumin (3.4-5.0) gm/dl Globulin (2.5-4.0) gm/dl Albumin/Globulin Ratio (0.9-2) TSH (0.300-4.500) uIu/ml Urine Opiates Screen (Neg) Ur Methadone, Qual (Neg) Urine Barbiturates (Neg) Ur Phencyclidine (PCP) (Neg) U Amphetamin/Meth Scrn (Neg) MDMA (Ecstasy) Screen (Neg) U Benzodiazepines Scrn (Neg) Ur Cocaine Metabolite (Neg) U Marijuana (THC) Screen (Neg) Ethyl Alcohol mg/dL (0-3) mg/dl Influenza Type A (PCR) (Neg) Influenza Type B (PCR) (Neg) Diagnostic Findings XR chest 1V portable HISTORY: Altered mental status. COMPARISON: Chest 01/15/2020. FINDINGS: Stable cardiomegaly and chronic interstitial thickening. No new focal lung consolidations to suggest pneumonia. No evidence for pulmonary edema. Left- sided pacemaker/defibrillator is again noted. No pleural effusions. No pneumothorax. IMPRESSION: No significant change compared to the prior study. No acute process. Cardiomegaly and chronic interstitial thickening persists. ACT 112: Negative or not required by law. Electronically signed by: Abelardo Deutsch M.D. 01/17/2020 11:41 AM Dictated: 01/17/20 1140 Transcribed: 01/17/[address] DOSE: 749.40 mGy.cm HISTORY: Altered mental status. TECHNIQUE: Multiaxial CT images of the head were performed without the use of intravenous contrast. Automated exposure control was utilized for this study. A dose lowering technique was utilized adhering to the principles of ALARA. Comparison: Head CT 01/15/2020. Findings: Evidence for previous paranasal sinus surgery. Moderate mucosal thickening and debris noted at the partially resected sphenoid sinuses. This remains unchanged. The mastoid air cells are clear. The calvarium and skull base are intact. There is no mass, hematoma, midline shift, acute infarct. White matter hypodensity is nonspecific but suggestive of microvascular ischemic change. The ventricles and sulci demonstrate mild age-related involutional changes. Impression: No significant change compared to the prior study. No acute intracranial abnormality. ACT 112: Negative or not required by law. Electronically signed by: Abelardo Deutsch M.D. 01/17/2020 11:38 AM Dictated: 01/17/20 1135 Transcribed: 01/17/20 1135 ECG Additional Comments: Study reveals sinus rhythm at 75 bpm with sinus arrhythmia and PVC x1, AR = 206, QRS = 110, QTc = 464, inferior Q waves, no acute ischemic changes Code Status & VTE Plan Code Status Full code PG Care Time/CCT Total # of Minutes Spent Total Time Spent with Patient: Total time spent is greater than 50% in coordination of care (as documented) at patient's floor/unit and/or counseling patient: Coding Level of Care Code 49814 OBS Care - Level 3 Diagnoses AMS (altered mental status) R41.82 Altered mental status type: unspecified Elevated troponin R79.89 Alcohol abuse F10.10 PAD (peripheral artery disease) I73.9 CAD (coronary artery disease), [place] coronary artery I25.118 Associated angina: with stable angina [place] vs. transplanted heart: [place] heart Chronic systolic CHF (congestive heart failure) I50.22 Chronic respiratory failure with hypoxia J96.11 Pituitary adenoma D35.2 Seizure R56.9 Atrial fibrillation I48.91 Atrial fibrillation type: unspecified GERD (gastroesophageal reflux disease) K21.9 Esophagitis presence: esophagitis presence not specified Hyperlipidemia E78.5 Hyperlipidemia type: unspecified (1) Atrial fibrillation Atrial fibrillation type: unspecified Qualified Code(s): I48.91 - Unspecified atrial fibrillation (2) Hyperlipidemia Hyperlipidemia type: unspecified Qualified Code(s): E78.5 - Hyperlipidemia, unspecified (3) CAD (coronary artery disease), [place] coronary artery Associated angina: with stable angina [place] vs. transplanted heart: [place] heart Qualified Code(s): I25.118 - Atherosclerotic heart disease of [place] coronary artery with other forms of angina pectoris (4) AMS (altered mental status) Altered mental status type: unspecified Qualified Code(s): R41.82 - Altered mental status, unspecified (5) GERD (gastroesophageal reflux disease) Esophagitis presence: esophagitis presence not specified Qualified Code(s): K21.9 - Gastro-esophageal reflux disease without esophagitis
[2020-01-17 14:56] LABS: C Reactive Protein 1.08 mg/dl (0-0.29); Thyroid Stimulating Hormone 0.628 uIu/ml (0.300-4.500)
[2020-01-17 15:22] LABS: Lyme Ab IgG w/WB Rflx Negative (Negative); Lyme Ab IgM w/WB Rflx Negative (Negative)
[2020-01-17] MEDS: TESTOSTERONE: ORDER AWAITING ACTION SCH (15:49)
[2020-01-17] MEDS: FUROSEMIDE 20 MG TAB PO SCH (17:40)
--- NOTE | 2020-01-17 18:15 | Electrocardiogram Report ---
Test Reason : Blood Pressure : / mmHG Vent. Rate : 075 BPM Atrial Rate : 075 BPM P-R Int : 206 ms QRS Dur : 110 ms QT Int : 416 ms P-R-T Axes : 031 -27 102 degrees QTc Int : 464 ms Sinus rhythm with sinus arrhythmia with occasional Premature ventricular complexes Inferior infarct (cited on or before 04-JUN-1995) Abnormal ECG When compared with ECG of 15-JAN-2020 22:56, Sinus rhythm has replaced Electronic atrial pacemaker Nonspecific T wave abnormality, improved in Lateral leads Confirmed by Matthew Meng ([id number]) on 01/17/2020 6:15:10 PM Referred By: REFERRED SELF Confirmed By:Yordan Meng
[2020-01-17] MEDS ORDERED: FLUTICASONE FUROATE 100MCG 14 PUFFS/INHALER INH SCH (21:00)
[2020-01-17] MEDS ORDERED: UMECLIDINIUM/VILANTEROL 62.5/25MCG 7 PUFFS/INHALER INH SCH (21:00)
[2020-01-17] MEDS ORDERED: LOSARTAN POTASSIUM 25 MG TAB PO SCH (21:00)
[2020-01-17] MEDS ORDERED: FOLIC ACID 1 MG TAB PO SCH (21:00)
[2020-01-17] MEDS ORDERED: METOPROLOL SUCC 50MG EXT REL TAB PO SCH (21:00)
[2020-01-17] MEDS ORDERED: ATORVASTATIN 40 MG TAB PO SCH (21:00)
[2020-01-17] MEDS: SOTALOL HCL 80 MG TAB PO SCH (21:59)
[2020-01-17] MEDS: PANTOprazole 40 MG TAB PO SCH (22:00)
[2020-01-17 22:19] LABS: Appearance Urine Clear (Clear); Bilirubin Urine Negative (Negative); Blood Urine Negative (Negative); Color Urine Yellow; Glucose Urine UA Negative (Negative); Ketones Urine Negative (Negative); Leukocyte Esterase Urine Negative (Negative); Nitrite Urine Negative (Negative); Protein Urine Negative (Negative); Specific Gravity Urine 1.014 (1.000-1.030); Urobilinogen Urine Negative (Negative); pH Urine 6.5 (4.5-7.5)
[2020-01-18] MEDS: TESTOSTERONE: ORDER AWAITING ACTION SCH ×2 (00:40→09:22)
[2020-01-18] MEDS ORDERED: SODIUM CHLORIDE 0.65% NA SOLN 45 ML (OCEAN) ONE (01:43)
[2020-01-18] MEDS ORDERED: SODIUM CHLORIDE 0.65% NA SOLN 45 ML (OCEAN) PRN (01:45)
[2020-01-18 06:07] LABS: Basophils # (auto) 0.01 K/uL (0-0.2); Basophils % (auto) 0.2 %; Eosinophils # (auto) 0.09 K/uL (0-0.5); Eosinophils % (auto) 1.4 %; Hemoglobin 12.6 g/dL (14.0-18.0); Immature Granulocytes # (auto) 0.02 K/uL (0.00-0.02); Immature Granulocytes % (auto) 0.3 %; Lymphocytes # (auto) 1.21 K/uL (1.2-3.4); Lymphocytes % (auto) 18.7 %; Mean Corpuscular Hemoglobin 28.1 pg (25-34); Mean Corpuscular Hgb Conc 32.3 g/dL (32-36); Mean Corpuscular Volume 86.9 fL (80-100); Mean Platelet Volume 10.8 fL (7.4-10.4); Monocytes # (auto) 0.49 K/uL (0.11-0.59); Monocytes % (auto) 7.6 %; Neutrophils # (auto) 4.65 K/uL (1.4-6.5); Neutrophils % (auto) 71.8 %; Platelet Count 148 K/uL (130-400); RDW Coefficient of Variation 18.3 % (11.5-14.5); RDW Standard Deviation 58.2 fL (36.4-46.3); Red Blood Count 4.49 M/uL (4.7-6.1); White Blood Count 6.47 K/uL (4.8-10.8)
--- NOTE | 2020-01-18 06:48 | Emergency Department Note ---
History of Present Illness General Chief complaint: Altered Mental Status Time Seen by Provider: 01/17/20 08:56 Source: patient, family, EMS, RN notes reviewed and old records reviewed Mode of arrival: ambulatory Limitations: altered mental status History of Present Illness Provider complaint: Altered Mental Status Onset (ago): day(s) 1 Location: head Radiation: non-radiation Severity: severe Current Pain Intensity: 0 Treatments prior to arrival: none This is a 75-year-old male who presents emergency department brought in by a friend. The patient was recently [facility] evening before his work-up could be completed. The patient would not tolerate any further staying in the hospital. The patient is brought in by family friend who is concerned that the patient is not taking care of himself. They report he also is not taking his medications. The patient is refusing any blood work and is non-cooperative here in the hospital room. The patient's brother who is power of litigation attorney is calling in from [place] and wishes the patient to be sedated so that laboratory work as well as CAT scan of the head chest x-ray can be obtained. The patient himself states he does not wish to have anything done. He is from the [facility]. He knows the hospital he is in. He wishes to be discharged. Home Medications Home Medications Medication Instructions Recorded Confirmed Type atorvastatin 80 mg PO PM 11/13/18 01/17/20 History clopidogrel [Plavix] 75 mg PO QAM 11/13/18 01/17/20 History folic acid 1 mg PO HS 11/13/18 01/17/20 History omeprazole 40 mg PO BID 11/13/18 01/17/20 History albuterol sulfate 90 mcg/actuation 90 mcg INH Q6H PRN #1 ea 08/29/19 01/17/20 Rx breath activated powder inhaler nitroglycerin 0.4 mg sublingual 0.4 mg SL Q5M PRN 08/29/19 01/17/20 History tablet Trelegy Ellipta 1 inh INHALATION HS 09/22/19 01/17/20 History cholecalciferol (vitamin D3) 2,000 unit PO QAM 09/22/19 01/17/20 History isosorbide mononitrate 60 mg PO QAM 09/22/19 01/17/20 History apixaban 5 mg tablet 5 mg PO BID 12/30/19 01/17/20 History furosemide 40 mg tablet 60 mg PO BID tab 12/30/19 01/17/20 History metoprolol succinate 50 mg 50 mg PO HS 12/30/19 01/17/20 History tablet,extended release 24 hr sotalol 80 mg tablet 80 mg PO BID 12/30/19 01/17/20 History losartan 25 mg PO HS 01/10/20 01/17/20 History testosterone [AndroGel] 2 pump TRANSDERMAL QAM 01/10/20 01/17/20 History spironolactone 25 mg PO QAM 01/11/20 01/17/20 History thiamine HCl (vitamin B1) [Vitamin 100 mg PO QAM #30 tab 01/11/20 01/17/20 Rx B-1] Allergies Allergy/AdvReac Type Severity Reaction Status Date / Time amoxicillin Allergy Mild RASH/ITCHIN Verified 01/17/20 09:26 G lactose AdvReac Intermediate GI SYMPTOMS Verified 01/17/20 09:26 benzalkonium chloride AdvReac Mild ITCHING/SWE Verified 01/17/20 09:26 LLING/RASH gluten AdvReac Unknown gluten Verified 01/17/20 09:26 intolerant per EGD Past Med/Surg History Medical History Alcohol abuse Anemia Arthritis CAD (coronary artery disease), [facility] coronary artery Celiac disease Chronic respiratory failure with hypoxia Chronic systolic CHF (congestive heart failure) Diabetes Emphysema of lung GERD (gastroesophageal reflux disease) Gout Hyperlipidemia Hypertension ICD (implantable cardioverter-defibrillator) in place medtronic [address] Newberry Ischemic cardiomyopathy Ischemic colitis Migraine Myocardial Infarction most recent 2013, adjust med and icd inserted Non-ST elevation AK (NSTEMI) (Inactive) PAD (peripheral artery disease) Pituitary adenoma removal of adenoma from pituitary 2016 Thrombocytopenia Unstable angina (Inactive) Ventricular tachycardia Surgical History H/O hand surgery Right hand tendon repair History of abdominal aortic aneurysm (AAA) repair 2006 History of cardiac defibrillator placement May 2014 History of pituitary surgery August 2016 History of total hip arthroplasty right and left Hx of [id number] bypass right and left leg Family History Mother , at age 46 Breast cancer Other Cancer Denies family history of Ovarian cancer Prostate cancer Myocardial infarction Colorectal cancer Social History Preferred Language: Kazakh Communication Ability: Effective Visual Impairment: No Limitations Hearing Ability: Normal [place] Jewel Required: No Beliefs That Will Affect Care: None marital status: marital status details: no children Current Living Situation: Alone current occupational status: retired Other Information That Helps Us Care for You: No Feels Safe at Home: Yes Safety Concerns: Feels Safe At This Time Smoking Status: Former smoker Age Started Using Tobacco: 19 ; Age Quit Using Tobacco: 61 ; packs per day: 1.5 ; Cigarettes Per Day: 20-40 ; Number of Years Since Quit: 13 ; Second Hand Exposure: No ; Hx Alcohol Use: Yes Alcohol type: hard liquor Alcohol Intake Frequency: Daily Alcohol Intake Frequency Comment: 2-3 bourbons daily Hx Substance Use: No Childhood Exposure to Second-Hand Smoke: No Dental Care, Regularly: Yes Physical Activity Frequency: 3-4 Times per Week Seatbelt Use: always Sunscreen Use: Yes Review of Systems A total of 10 systems reviewed and were otherwise negative Physical Exam Vital Signs Vital Signs - 24 hr 01/17/20 08:43 01/17/20 08:47 01/17/20 09:00 Temperature Temperature Source Pulse Rate 76 81 74 Pulse Rate from SpO2 Sensor 67 74 69 Pulse Rhythm Pulse Strength Respiratory Rate 10 L 11 L 19 Respiratory Effort / Characteristics Respiratory Depth Blood Pressure 139/93 123/81 Blood Pressure Mean 115 91 Pulse Oximetry 97 96 94 Oxygen Delivery Method Sepsis Recent Fever Within 48 Hours Sepsis Action Taken by Nursing 01/17/20 09:04 01/17/20 10:00 01/17/20 10:17 Temperature 36.8 C Temperature Source Oral Pulse Rate 80 Pulse Rate from SpO2 Sensor Pulse Rhythm Regular Pulse Strength Normal Respiratory Rate 20 Respiratory Effort / Characteristics Non-Labored Spontaneous Respiratory Depth Normal Blood Pressure 139/93 115/81 Blood Pressure Mean 108 83 Pulse Oximetry 96 Oxygen Delivery Method Room Air Room Air Sepsis Recent Fever Within 48 Hours No Sepsis Action Taken by Nursing No Action Required 01/17/20 10:51 01/17/20 11:01 01/17/20 11:31 Temperature Temperature Source Pulse Rate 65 66 65 Pulse Rate from SpO2 Sensor Pulse Rhythm Pulse Strength Respiratory Rate 2 L 0 L 16 Respiratory Effort / Characteristics Respiratory Depth Blood Pressure Blood Pressure Mean Pulse Oximetry Oxygen Delivery Method Sepsis Recent Fever Within 48 Hours Sepsis Action Taken by Nursing 01/17/20 12:01 Temperature Temperature Source Pulse Rate 61 Pulse Rate from SpO2 Sensor Pulse Rhythm Pulse Strength Respiratory Rate 16 Respiratory Effort / Characteristics Respiratory Depth Blood Pressure Blood Pressure Mean Pulse Oximetry Oxygen Delivery Method Sepsis Recent Fever Within 48 Hours Sepsis Action Taken by Nursing GENERAL: Patient is a healthy-appearing well-nourished male, poor insight as to why he is here HEAD: Normocephalic atraumatic EYES: Ocular movements intact pupils equal and react to light OROPHARYNX mucous membranes are moist no exudates present no erythema or edema present NECK: Supple no nuchal rigidity CHEST: Good equal expansion LUNGS: Clear and equal to auscultation CARDIAC: Normal S1 and S2 ABDOMEN: Soft nontender no guarding BACK: No CVA tenderness EXTREMITIES: No pain upon palpation normal muscle strength in all groups no clubbing cyanosis or edema NEURO: Patient is following commands is answering questions appropriately. Alert and oriented x3 Cranial Nerves 2-12 grossly intact Course Administered Medications Atorvastatin Calcium (Lipitor) 80 mg PO PM ALEJANDRA Stop: 02/16/20 20:59 Last Admin: 01/17/20 22:00 Dose: 80 mg Documented by: [id number] Fluticasone Furoate (Arnuity Ellipta 100mcg) 1 puffs INH HS [facility] Stop: 02/16/20 20:59 Last Admin: 01/17/20 22:03 Dose: Not Given Documented by: [id number] Folic Acid (Folvite) 1 mg PO HS ALEJANDRA Stop: 02/16/20 20:59 Last Admin: 01/17/20 22:00 Dose: 1 mg Documented by: [id number] Furosemide (Lasix) 60 mg PO BID17 ALEJANDRA Stop: 02/16/20 16:59 Last Admin: 01/17/20 17:40 Dose: Not Given Documented by: [id number] Losartan Potassium (Cozaar) 25 mg PO [facility] Stop: 02/16/20 20:59 Last Admin: 01/17/20 22:00 Dose: 25 mg Documented by: [id number] Metoprolol Succinate (Toprol Xl) 50 mg PO [facility] Stop: 02/16/20 20:59 Last Admin: 01/17/20 22:06 Dose: 50 mg Documented by: [id number] Miscellaneous (Order Awaiting Action) 1 ea N/A QS [facility] Stop: 02/16/20 15:59 Last Admin: 01/18/20 00:40 Dose: Not Given Documented by: [id number] Admin: 01/17/20 15:49 Dose: Not Given Documented by: [id number] Olanzapine (Zyprexa) 2.5 mg PO HS [facility] Stop: 02/17/20 20:59 Last Admin: 01/18/20 00:00 Dose: 2.5 mg Documented by: [id number] Pantoprazole Sodium (Protonix) 40 mg PO BID ALEJANDRA Stop: 02/16/20 20:59 Last Admin: 01/17/20 22:00 Dose: 40 mg Documented by: [id number] Sodium Chloride (King Nasal) 1 sprays NA ONE PRN PRN Reason: Dryness Stop: 02/17/20 01:44 Last Admin: 01/18/20 02:43 Dose: 1 sprays Documented by: [id number] Sotalol HCl (Betapace) 80 mg PO BID [facility] Stop: 02/16/20 20:59 Last Admin: 01/17/20 21:59 Dose: 80 mg Documented by: [id number] Umeclidinium/Vilanterol (Anoro Ellipta 62.5/25 Mcg Inh) 1 puffs INH [facility] Stop: 02/16/20 20:59 Last Admin: 01/17/20 22:03 Dose: Not Given Documented by: [id number] Discontinued Medications Benztropine Mesylate (Cogentin) 2 mg IV NOW STA Stop: 01/17/20 10:56 Last Admin: 01/17/20 11:07 Dose: 2 mg Documented by: [id number] Haloperidol Lactate (Haldol) 10 mg IM NOW STA Stop: 01/17/20 09:45 Last Admin: 01/17/20 10:18 Dose: 10 mg Documented by: [id number] Sodium Chloride (Nss 1000ml) 500 mls @ 999 mls/hr IV .Q31M ONE Stop: 01/17/20 09:44 Last Infusion: 01/17/20 11:52 Dose: 0 mls/hr Documented by: [id number] Admin: 01/17/20 11:07 Dose: 999 mls/hr Documented by: [id number] Lorazepam (Ativan) 2 mg IM NOW STA Stop: 01/17/20 09:45 Last Admin: 01/17/20 10:18 Dose: 2 mg Documented by: [id number] Sodium Chloride (King Nasal) Confirm Administered Dose 225 sprays .ROUTE .STK- MED ONE Stop: 01/18/20 01:44 Last Admin: 01/18/20 02:17 Dose: Not Given Documented by: [id number] Critical Care Time I have personally spent greater than 30 minutes of critical care time in the direct management of this patient. This includes bedside care, interpretation of diagnostic studies, and testing, discussion with consultants, patient, and family members, and other required patient management activities. This 30 minutes is in excess of all separately billable procedures. Medical Decision Making Medical Records Attestation: I reviewed the patient's medical records. Home Medications Current Medication List: was personally reviewed by me Laboratory Data Attestation: I reviewed the patient's lab results. Result diagrams: 01/18/20 05:32 01/17/20 10:52 Lab Results 01/17/20 01/17/20 01/17/20 Range/Units 10:52 10:52 10:52 WBC 6.03 (4.8-10.8) K/uL RBC 4.85 (4.7-6.1) M/uL Hgb 13.6 L (14.0-18.0) g/dL Hct 40.9 L (42-52) % MCV 84.3 (80-100) fL MCH 28.0 (25-34) pg MCHC 33.3 (32-36) g/dL RDW Std Deviation 55.8 H (36.4-46.3) fL RDW Coeff of Dena 18.0 H (11.5-14.5) % Plt Count 149 (130-400) K/uL MPV 10.2 (7.4-10.4) fL PT 13.5 H (9.0-12.0) Seconds INR 1.3 H (0.9-1.1) APTT 27.4 (21.0-31.0) Seconds PTT Ratio 1.0 Sodium 135 L (136-145) mmol/L Potassium 3.8 (3.5-5.1) mmol/L Chloride 106 (98-107) mmol/L Carbon Dioxide 23 (21-32) mmol/L Anion Gap 6.0 (3-11) BUN 24 H (7-18) mg/dl Creatinine 0.99 (0.6-1.4) mg/dl Est Cr Clr Drug Dosing 63.3 ml/min Est GFR ( Amer) 86.6 Est GFR (Non-Af Amer) 74.7 BUN/Creatinine Ratio 24.4 H (10-20) Glucose 109 H (70-99) mg/dl Calcium 9.2 (8.5-10.1) mg/dl Magnesium 1.9 (1.8-2.4) mg/dl Total Bilirubin 0.8 (0.2-1) mg/dl AST 23 (15-37) U/L ALT 23 (12-78) U/L Alkaline Phosphatase 94 (45-117) U/L Total Creatine Kinase 131 (39-308) U/L CK-MB (CK-2) 3.4 (0.5-3.6) ng/ml CK/CKMB % Calc 2.6 (0-3.0) Troponin I 0.062 H* (0-0.045) ng/ml Total Protein 7.1 (6.4-8.2) gm/dl Albumin 3.1 L (3.4-5.0) gm/dl Globulin 4.0 (2.5-4.0) gm/dl Albumin/Globulin Ratio 0.8 L (0.9-2) Ethyl Alcohol mg/dL (0-3) mg/dl Influenza Type A (PCR) (Neg) Influenza Type B (PCR) (Neg) 01/17/20 01/17/20 Range/Units 11:34 11:48 WBC (4.8-10.8) K/uL RBC (4.7-6.1) M/uL Hgb (14.0-18.0) g/dL Hct (42-52) % MCV (80-100) fL MCH (25-34) pg MCHC (32-36) g/dL RDW Std Deviation (36.4-46.3) fL RDW Coeff of Dena (11.5-14.5) % Plt Count (130-400) K/uL MPV (7.4-10.4) fL PT (9.0-12.0) Seconds INR (0.9-1.1) APTT (21.0-31.0) Seconds PTT Ratio Sodium (136-145) mmol/L Potassium (3.5-5.1) mmol/L Chloride (98-107) mmol/L Carbon Dioxide (21-32) mmol/L Anion Gap (3-11) BUN (7-18) mg/dl Creatinine (0.6-1.4) mg/dl Est Cr Clr Drug Dosing ml/min Est GFR ( Amer) Est GFR (Non-Af Amer) BUN/Creatinine Ratio (10-20) Glucose (70-99) mg/dl Calcium (8.5-10.1) mg/dl Magnesium (1.8-2.4) mg/dl Total Bilirubin (0.2-1) mg/dl AST (15-37) U/L ALT (12-78) U/L Alkaline Phosphatase (45-117) U/L Total Creatine Kinase (39-308) U/L CK-MB (CK-2) (0.5-3.6) ng/ml CK/CKMB % Calc (0-3.0) Troponin I (0-0.045) ng/ml Total Protein (6.4-8.2) gm/dl Albumin (3.4-5.0) gm/dl Globulin (2.5-4.0) gm/dl Albumin/Globulin Ratio (0.9-2) Ethyl Alcohol mg/dL < 3.0 (0-3) mg/dl Influenza Type A (PCR) Neg for Influ A (Neg) Influenza Type B (PCR) Neg for Influ B (Neg) Imaging Data Radiologist's Impression: Patient: BERYL JEFFERSONAdmit Date: 01/17/20 MR#: [id number]: [address] [place] [address] Acct ID:[id number]: Date: [address] [place] [address] Zip: [place] [address] Age: 75Location: ED Sex: M Room/Bed: Att Phy:Diagnosis: AMS Erin Phy: Quirino Hensley, MDService Date: 01/17/20 Fam Phy:Interpreting Phy: Abelardo Deutsch MD Admit Phy: Ordering Phy: Lesley Cole MD cc: ~ XR chest 1V portable HISTORY: Altered mental status. COMPARISON: Chest 01/15/2020. FINDINGS: Stable cardiomegaly and chronic interstitial thickening. No new focal lung consolidations to suggest pneumonia. No evidence for pulmonary edema. Left- sided pacemaker/defibrillator is again noted. No pleural effusions. No p neumothorax. IMPRESSION: No significant change compared to the prior study. No acute process. Cardi omegaly and chronic interstitial thickening persists. ACT 112: Negative or not required by law. Electronically signed by: Abelardo Deutsch M.D. 01/17/2020 11:41 AM Dictated: 01/17/20 1140 Transcribed: 01/17/20 1140 Patient: BERYL JEFFERSONAdmit Date: 01/17/20 MR#: [id number]: [address] Acct ID:[id number]: Date: 1945[facility] Zip: [place] [address] Age: 75Location: ED Sex: M Room/Bed: Att Phy:Diagnosis: AMS Erin Phy: Quirino Hensley, MDService Date: 01/17/20 Fam Phy:Interpreting Phy: Abelardo Deutsch MD Admit Phy: Ordering Phy: Lesley Cole MD cc: ~ HEAD CT NONCONTRAST CT DOSE: 749.40 mGy.cm HISTORY: Altered mental status. TECHNIQUE: Multiaxial CT images of the head were performed without the use of intravenous contrast. Automated exposure control was utilized for this study. A dose lowering technique was utilized adhering to the principles of ALARA. Comparison: Head CT 01/15/2020. Findings: Evidence for previous paranasal sinus surgery. Moderate mucosal thickening and debris noted at the partially resected sphenoid sinuses. This remains unchanged. The mastoid air cells are clear. The calvarium and skull base are intact. There is no mass, hematoma, midline shift, acute infarct. White matter hypodensity is nonspecific but suggestive of microvascular ischemic change. The ventricles and sulci demonstrate mild age-related involutional changes. Impression: No significant change compared to the prior study. No acute intracranial abnormality. ACT 112: Negative or not required by law. Electronically signed by: Abelardo Deutsch M.D. 01/17/2020 11:38 AM Dictated: 01/17/20 1135 Transcribed: 01/17/20 1135 ECG Data Attestation: I personally reviewed and interpreted this ECG as follows: Indication: + altered mental status Rate (beats per minute): 75 Rhythm: + sinus rhythm ECG Findings: + PVCs Change: no significant change (from 01/15/2020) MDM Narrative This is a 75-year-old male who presents emergency department brought in by family friend and was sent in by brother who resides down in [place]. The broth er in [place] tells me he has power of litigation attorney over the patient and wishes for the patient to be evaluated. The patient is non-cooperative here in the emergency department. Speaking at length with the patient's brother he wishes for me to sedate the patient for a better evaluation of the patient. For this reason the patient received 10 of Haldol and 2 of Ativan IM. He had to be monitored by both myself nursing and security for an extended period of time. He does have an elevation in his troponin his hemoglobin is elevated. I had a lengthy discussion about him with both case management as well as the hospitalist service as well as the psychiatric liaison. Impression & Plan Acute alteration in mental status, Unable to agree with care plan Discharge Plan Visit Data *Final* Discharge Date/Time: 01/17/20 13:21 Chief Complaint: Altered Mental Status ED Provider: Pollo Chaves ED Midlevel Provider: Lesley Cole Discharge Problem: Acute alteration in mental status, Unable to agree with care plan Patient Disposition: Admitted As Inpatient Discharge Instructions Interventions: ED Discharge Assessment Last Done: 01/17/20 13:21
[2020-01-18 07:39] LABS: BUN Creatinine Ratio 18.5 (10-20); Calcium 8.4 mg/dl (8.5-10.1); Est GFR (African American) 87.7; Est GFR (Non-African American) 75.6
[2020-01-18] MEDS ORDERED: ISOSORBIDE MONO EXTENDED REL 60 MG TABCR PO SCH (09:00)
[2020-01-18] MEDS ORDERED: SPIRONOLACTONE 25 MG TAB PO SCH (09:00)
[2020-01-18] MEDS ORDERED: THIAMINE HCL 100 MG TAB PO SCH (09:00)
--- NOTE | 2020-01-18 09:11 | Neurology Consultation ---
Date of Consultation January 18, 2020 Assessment & Plan (1) AMS (altered mental status): Tyler Alcala is a 75 yo man w/ complicated PMH including alcohol abuse, CAD status post ICD placement, celiac disease, chronic respiratory failure with hypoxia, CHF, diabetes, GERD, gout, hyperlipidemia, hypertension, ischemic cardiomyopathy, history of migraines, PAD, history of cardiac arrest and pituitary adenoma S/P resection who presents to [facility] with complaint of altered mental status. # AMS: Unclear cause at this time; given fluctuations of symptoms and mention by pt friend that the current presentation was after an argument with pt about medications, highly suspect that pt is not taking medications correctly and that he has dementia vs MCI at baseline. Cannot rule out ambien withdrawal however would expect his AMS to be more persistent and less like delirium with waxing and waning. Could represent Wernicke's however he does not have the classic triad. No signs of autoimmune encephalitis or HSV encephalitis on MRI brain last week, however given the acute onset of his symptoms, would be concerned for either infectious versus autoimmune cause to his presentation. Less likely would be non-convulsive status as he has not been taking the keppra and does have bilateral hippocampal atrophy. I do think that he has some level of mild cognitive impairment at baseline that he has been compensating for after my conversation with him previously and again today. -Recommend outpatient dementia screening -Recommended the patient undergo lumbar puncture for autoimmune encephalitis versus infectious encephalitis like HSV. Would send the following: Cell counts, glucose, protein, HSV PCR, EBV PCR, West Nile PCR, CMV PCR, crypto, opening pressure, autoimmune encephalitis panel to [facility] (both serum and CSF). He would need his apixaban held for this so would need to weigh risks/benefits with him. -Please obtain an EEG to rule out nonconvulsive status -continue Keppra 500 mg bid -Recommend that pharmacy speak with him and have medication packets made up so that people can easily see what he is and is not taking. -Recommend psychiatry consultation -Would also consider discussion with social work on whether he should be placed in the future to ensure that he is taking his medications appropriately and not a threat to himself given suspected misuse of medications at home and likely dementia/MCI. Thank you for this interesting consult. Plan of care discussed with primary team. Please call or text with any questions. (2) Celiac disease: (3) Alcohol abuse: History of Present Illness Attending Physician: Teddy Willams DO History of Present Illness Tyler Alcala is a 75 yo man w/ complicated PMH including alcohol abuse, CAD status post ICD placement, celiac disease, chronic respiratory failure with hypoxia, CHF, diabetes, GERD, gout, hyperlipidemia, hypertension, ischemic cardiomyopathy, history of migraines, PAD, history of cardiac arrest and pituitary adenoma S/P resection who presents to [facility] with complaint of altered mental status. Patient was unable to give full history and would be circular and tangential when asked questions. Per his son, his father had acute onset of altered mental status starting approximately 9 days ago. He was admitted last week for this and had extensive neurologic testing performed at that time lab work at that time included B12 599, folate greater than 24, TSH within normal, free T4 within normal, prolactin within normal, MRI of the brain that showed moderate small vessel ischemic disease bilateral hippocampal atrophy and generalized atrophy but no acute stroke, signs of autoimmune encephalitis or HSV encephalitis. He was noted to have a seizure- like event for which she was started on Keppra 5 mg twice daily. He was discharged home after receiving thiamine with plan to follow-up with neurology (Dr. Vaz) in the future. When he returned to the ER last week, friend noted that he was again increasingly confused and asking "deep existential questions". He believes the patient may have been taking extra Ambien but patient reports that since no one will write him a prescription for Ambien, he has been going "skimpy" on the dose. Patient reports that he has not yet even start the Keppra. Work-up so f ar includes WBC 6.8, hemoglobin 15.4, platelets 155, INR 1.3 sodium 135, creatinine 0.1, glucose 77, calcium within normal, mag within normal, mildly elevated troponin 0 0.08, and UA that shows ketones. He had a repeat CT head that showed no hemorrhage or hypodensity, unchanged since last week. Had a chest x-ray that shows mild cardiomegaly and chronic interstitial thickening but no clear signs of pneumonia. He received thiamine, Ativan and 1 g Keppra load in the ED and was admitted for further work-up. On examination today, Tyler cannot directly tell me why he is here and continues to be tangential, however, he is fully oriented in all of the aspects. Discussed the possibility of having a lumbar puncture with him and he reports that unless something is going to kill him in the next year, he does not want to proceed with any further work-up for that. He was discharged home after that. And friend stay with him overnight and noted that in the morning he was again still acting agitated, disorganized and paranoid, so brought him back to the ED again. Vitals unremarkable. Given his unwillingness to cooperate with plan of care, he was sedated with Zyprexa, Haldol and Ativan. Brother who is POA reports that this is okay to determine the cause of his altered mental status. Labs this time show white count of 6.47, hemoglobin 12.6, platelets 148, sodium 135, creatinine 0.99, glucose 109, INR 1.3, calcium magnesium within normal, normal LFTs, mildly elevated troponin of 0.062, normal CK, negative influenza, negative alcohol level. He had a repeat chest x-ray that showed stable cardiomegaly and chronic interstitial thickening with no new consolidations concerning for pneumonia. He had a CT of the head repeated with stable small vessel ischemic disease, generalized atrophy and no new hemorrhage or hypodensity noted. EKG showed normal sinus rhythm with PVCs. On exam this morning, he no longer has agitation or AMS. He is still not willing to have an LP performed to assess for infection vs paraneoplastic cause of intermittent AMS. No current complaints. Allergies Allergy/AdvReac Type Severity Reaction Status Date / Time amoxicillin Allergy Mild RASH/ITCHIN Verified 01/17/20 09:26 G lactose AdvReac Intermediate GI SYMPTOMS Verified 01/17/20 09:26 benzalkonium chloride AdvReac Mild ITCHING/SWE Verified 01/17/20 09:26 LLING/RASH gluten AdvReac Unknown gluten Verified 01/17/20 09:26 intolerant per EGD Home Medications Home Medications Medication Instructions Recorded Confirmed Type atorvastatin 80 mg PO PM 11/13/18 01/17/20 History clopidogrel [Plavix] 75 mg PO QAM 11/13/18 01/17/20 History folic acid 1 mg PO HS 11/13/18 01/17/20 History omeprazole 40 mg PO BID 11/13/18 01/17/20 History albuterol sulfate 90 mcg/actuation 90 mcg INH Q6H PRN #1 ea 08/29/19 01/17/20 Rx breath activated powder inhaler nitroglycerin 0.4 mg sublingual 0.4 mg SL Q5M PRN 08/29/19 01/17/20 History tablet Trelegy Ellipta 1 inh INHALATION HS 09/22/19 01/17/20 History cholecalciferol (vitamin D3) 2,000 unit PO QAM 09/22/19 01/17/20 History isosorbide mononitrate 60 mg PO QAM 09/22/19 01/17/20 History apixaban 5 mg tablet 5 mg PO BID 12/30/19 01/17/20 History furosemide 40 mg tablet 60 mg PO BID tab 12/30/19 01/17/20 History sotalol 80 mg tablet 80 mg PO BID 12/30/19 01/17/20 History losartan 25 mg PO HS 01/10/20 01/17/20 History testosterone [AndroGel] 2 pump TRANSDERMAL QAM 01/10/20 01/17/20 History spironolactone 25 mg PO QAM 01/11/20 01/17/20 History thiamine HCl (vitamin B1) [Vitamin 100 mg PO QAM #30 tab 01/11/20 01/17/20 Rx B-1] metoprolol succinate 25 mg PO HS 30 Days #30 tab 01/18/20 Rx trazodone 50 mg PO DAILY 7 Days #7 tab 01/18/20 Rx Patient History Medical History Alcohol abuse Anemia Arthritis CAD (coronary artery disease), pauma coronary artery Celiac disease Chronic respiratory failure with hypoxia Chronic systolic CHF (congestive heart failure) Diabetes Emphysema of lung GERD (gastroesophageal reflux disease) Gout Hyperlipidemia Hypertension ICD (implantable cardioverter-defibrillator) in place medtronic [address] Newberry Ischemic cardiomyopathy Ischemic colitis Migraine Myocardial Infarction most recent 2013, adjust med and icd inserted Non-ST elevation VA (NSTEMI) (Inactive) PAD (peripheral artery disease) Pituitary adenoma removal of adenoma from pituitary 2015 Thrombocytopenia Unstable angina (Inactive) Ventricular tachycardia Surgical History H/O hand surgery Right hand tendon repair History of abdominal aortic aneurysm (AAA) repair 2006 History of cardiac defibrillator placement May 2014 History of pituitary surgery August 2016 History of total hip arthroplasty right and left Hx of [id number] bypass right and left leg Family History Mother , at age 46 Breast cancer Other Cancer Denies family history of Ovarian cancer Prostate cancer Myocardial infarction Colorectal cancer Social History Preferred Language: Guyanese Communication Ability: Effective Visual Impairment: No Limitations Hearing Ability: Normal Tuck Pointer Helper Required: No Beliefs That Will Affect Care: None marital status: marital status details: no children Current Living Situation: Alone current occupational status: retired Feels Safe at Home: Yes Smoking Status: Former smoker Age Started Using Tobacco: 19 ; Age Quit Using Tobacco: 61 ; packs per day: 1.5 ; Cigarettes Per Day: 20-40 ; Number of Years Since Quit: 13 ; Second Hand Exposure: No ; Hx Alcohol Use: Yes Alcohol type: hard liquor Alcohol Intake Frequency: Daily Alcohol Intake Frequency Comment: 2-3 bourbons daily Hx Substance Use: No Childhood Exposure to Second-Hand Smoke: No Dental Care, Regularly: Yes Physical Activity Frequency: 3-4 Times per Week Seatbelt Use: always Sunscreen Use: Yes Review of Systems Review of Systems: 14 point review of systems completed and negative except as in HPI. Physical Exam Physical Exam: General Exam: GEN: NAD, sitting in chair. HEENT: No conjunctival injection, no rhinorrhea. CV: RRR, no peripheral edema PULM: Nonlabored respirations on room air. Neuro Exam: MS: Awake and Alert. Oriented to person, place, and date. Speech fluent and appropriate without dysarthria or paraphasic errors. Language intact including naming, comprehension, repetition. Cognition and memory grossly intact. Slightly inattentive, tangential. No neglect. CN: Visual edgar full. No extinction to double simultaneous stimuli. No optic disc edema on fundoscopic exam. PERRLA OU. EOMI without nystagmus. Facial sensation intact to LT. Facial muscles full and symmetric. Hearing intact to conversation. Uvula midline with symmetric palatal elevation. Shoulder shrug normal. Tongue midline. MOTOR: Normal bulk and tone. No pronator drift. BUE strength 5/5 at deltoids, biceps, triceps, wrist flexors and extensors, and hand grasp bilaterally. BLE strength 5/5 at iliopsoas, hamstrings, quadriceps, tibialis anterior, and gastrocnemius bilaterally. REFLEXES: 1+ at biceps, triceps, brachioradialis, trace patella and absent Achilles bilaterally. Flexor plantar responses bilaterally. SENSORY: Intact to LT without extinction to double simultaneous stimuli. Vibration and temperature intact throughout. COORDINATION: No dysmetria or ataxia on [id number] bilaterally. Normal Davina bilaterally. GAIT: Normal gait and arm swing. Normal Romberg. Results & Data Vital Signs (Past 12 Hours) Vital Signs Temp Pulse Pulse Resp BP BP Pulse Ox 01/17/20 22:50 36.4 C L 74 20 107/74 98 01/17/20 22:25 83 120/86 PG Care Time/CCT Total # of Minutes Spent Total Time Spent with Patient: Total time spent is greater than 50% in coordination of care (as documented) at patient's floor/unit and/or counseling patient: Coding Level of Care Code 93830 Initial Inpt Care Lvl 3 Diagnoses AMS (altered mental status) R41.82 Altered mental status type: unspecified Celiac disease K90.0 Alcohol abuse F10.10 (1) AMS (altered mental status) Altered mental status type: unspecified Qualified Code(s): R41.82 - Altered mental status, unspecified
[2020-01-18] MEDS: SOTALOL HCL 80 MG TAB PO SCH (09:19)
[2020-01-18] MEDS: FUROSEMIDE 20 MG TAB PO SCH (09:19)
[2020-01-18] MEDS: PANTOprazole 40 MG TAB PO SCH (09:20)
--- NOTE | 2020-01-18 10:35 | Psychiatric Consultation ---
Date of Consultation January 18, 2020 Impression / Recommendations Impression Discussed the case with Drs. Javier and Екатерина, agree with neurology's recommendations for complete neurological work-up given acute change in mental status. I have low suspicion for primary psychiatric disorder as the cause of AMS, as he has no psychiatric history and no evidence (based on review of records and only limited interaction with the patient) of a primary mood or thought disorder. Delirium is most likely multifactorial, with possible underlying dementia and compounding neurological insults of substance abuse, withdrawal, and zolpidem use. Recommend avoiding centrally acting agents due to the risk of abuse/misuse/negative outcomes, and care has already been coordinated with his PCP regarding his zolpidem use. Recommend standard delirium interventions, including maintenance of regular day night cycles, quiet and dark room at night, frequent reorientation and bright light during the day, involvement of friend/supports. He does indicate an understanding of the treatment recommendations at this time, and states he wants to speak with Dr. Newberry before making a decision about his willingness to undergo the recommended studies. He is refusing a psychiatric assessment, but I offered to return if he should change his mind. Regarding ER documentation that the Office of Aging was requesting a psychiatric assessment to determine global competency, this is not something that can be accomplished in the hospital, and will require comprehensive outpatient assessment including neuropsychological testing and review of his medical records. This could be arranged by his POA in the Office of Aging if they so desire. We are able to assist with assessment of the capacity to make specific treatment decisions as a second opinion on whether the patient is able to give informed consent, if needed. He is low risk for suicide or harm to others. Risk Factors Assessment Male: Yes : Yes Do You Have Access To A Gun?: No Health Problems: Yes Mental Health Diagnoses: No Substance Use Disorders: Yes Previous Attempt: No Previous Psychiatric Hospitalization: No Hopelessness: No Smoker: No Protective Factors Assessment : No Responsible for Young Children: No Employed: No Stable Relationships: Yes Supportive Family: Yes Psych History Identifying Data 75-year-old male with a history of COPD, A. fib with ICD, diabetes, panhypopituitarism, alcohol abuse, and insomnia who has had several hospitalizations over the past month, and was admitted 01/17/2020 for altered mental status. Psychiatry is consulted for AMS. Chief Complaint " Who asked you to come?" History of Present Illness Information obtained from the record, discussion with the primary team, and limited information from the patient, as he declined to participate in the psychiatric evaluation, although I did talk with him and his friend who was visiting briefly. Per records, he has been hospitalized 3 times in the past 8 days. He was also hospitalized in August, September, and October 2019. All 3 of his recent hospitalizations have been due to AMS, with confusion, paranoia, possible hallucinations, and had a seizure in the ER 01/10/2020. He has had an extensive medical work-up, which has been negative. He had been drinking daily, and had cut back over a 2 to 3-day period prior to the 01/10/2020 hospitalization, so it was thought that alcohol withdrawal was contributing. He had been on [facility] Amb[facility] for insomnia, which was discontinued, although he stated he would go to a different PCP and find somebody else to prescribe it. He admitted to abusing the Ambien as well, taking up to 5 tabs at once. He is seen neurology during each hospitalization, and was started on Keppra for seizure of unclear etiology (differential including sleep deprivation, use of Ambien, and alcohol withdrawal); no signs of infection or metabolic causes. He does have a history of pituitary adenoma removed in 2016, but no signs of recurrence. He has a brain CT, MRI, and today neurology recommended an EEG and LP. They recommended continuing Keppra, and that the pharmacy dispense his medications and packet so that his friend can easily see what he is taking. Their differential includes dementia, Warneke's encephalopathy, substance abuse/withdrawal, and polypharmacy. His friend Williams has been involved during his hospitalizations, although records indicate that his brother in [place] is the POA. He was discharged from his second hospitalization on 01/16/2020 at his request (was here less than 24 hours), and recommendations were to discontinue Ambien, which he stated he would not do. His PCP who is prescribing it had been contacted, and when the patient was informed it would no longer be prescribed, he said he would simply seek out a different doctor. A psychiatry consultation was recommended, but the patient refused it. He returned to the ER <24 hours later, brought in by his friend, who is concerned that he was not taking care of himself, and said he was not taking his medication. He was uncooperative and refused blood draws. He had a second head CT which was negative, and his brother called from [place] stating he has power of justice court deputy clerk and wants the patient to be evaluated. He requested that the patient be sedated so that he could be evaluated and get lab work, and he was given Haldol 10 mg and Ativan 2 mg IM. Troponin was 0.062, RBC 4.49, hemoglobin 12.6, hematocrit 39. Electrolytes normal, glucose 132, LFTs normal. TSH and UA normal, drug screen negative. Since admission, he has been intermittently uncooperative, last evening stated he was going to leave by the morning, became agitated, and received olanzapine p.o. 2.5 mg. He met with the psychiatric liaison nurse last evening, along with his friend Williams, who stated that the patient became acutely altered about 2 weeks ago. Although he had experienced some medical problems in October, he fully recovered and returned to baseline. At baseline he is organized and is able to perform ADLs. On 01/07-01/08, he noticed some odd behavior (sad that he wanted to tell his friend something, and was making a lot of lists), and on 01/09, his friend noticed that he was "acting weird," called 911 because he heard noises and thought someone was trying to break into his home. He was hospitalized overnight 01/10 - 01/11, but his friend reported he was no better and continued to behave bizarrely and his thought process was "off the wall." On 220, he was sending bizarre texts and acted as if he were talking on his phone, although the phone was turned off. His memory has been poor, could not find his bathroom, did not remembering things from the past, and did not recognize his friend Williams yesterday when he visited. His friends have been staying with him at night, but he typically lives alone. They note he had not been sleeping well at night, only a few hours, which has been going on for "weeks." They do not know if he is taking his medications correctly. Patient's brother Josemanuel lives in [place], but is currently in [place]. The liaison nurse attempted to interview the patient last night, but he was somnolent and unable to participate in the assessment. On my assessment today, he is awake, alert, and visiting with his friend. After introducing myself in describing the purpose of my visit, he states he does not want to have a psychiatric assessment, and is only interested in talking with Dr. Newberry, his animal trapper. He states he understands that has been recommended he stay in the hospital and get a medical work-up of his altered mental status, he will not proceed with this until he talks with Dr. Newberry. Past Psychiatric History Previous Psych History: None known Do You Have Access To A Gun?: No Past Medication Trials: Multiple medication trials for insomnia (trazodone, mirtazapine). He and recently stopped due to AMS/misuse Allergies Allergy/AdvReac Type Severity Reaction Status Date / Time amoxicillin Allergy Mild RASH/ITCHIN Verified 01/17/20 09:26 G lactose AdvReac Intermediate GI SYMPTOMS Verified 01/17/20 09:26 benzalkonium chloride AdvReac Mild ITCHING/SWE Verified 01/17/20 09:26 LLING/RASH gluten AdvReac Unknown gluten Verified 01/17/20 09:26 intolerant per EGD Home Medications Home Medications Medication Instructions Recorded Confirmed Type atorvastatin 80 mg PO PM 11/13/18 01/17/20 History clopidogrel [Plavix] 75 mg PO QAM 11/13/18 01/17/20 History folic acid 1 mg PO HS 11/13/18 01/17/20 History omeprazole 40 mg PO BID 11/13/18 01/17/20 History albuterol sulfate 90 mcg/actuation 90 mcg INH Q6H PRN #1 ea 08/29/19 01/17/20 Rx breath activated powder inhaler nitroglycerin 0.4 mg sublingual 0.4 mg SL Q5M PRN 08/29/19 01/17/20 History tablet Trelegy Ellipta 1 inh INHALATION HS 09/22/19 01/17/20 History cholecalciferol (vitamin D3) 2,000 unit PO QAM 09/22/19 01/17/20 History isosorbide mononitrate 60 mg PO QAM 09/22/19 01/17/20 History apixaban 5 mg tablet 5 mg PO BID 12/30/19 01/17/20 History furosemide 40 mg tablet 60 mg PO BID tab 12/30/19 01/17/20 History metoprolol succinate 50 mg 50 mg PO HS 12/30/19 01/17/20 History tablet,extended release 24 hr sotalol 80 mg tablet 80 mg PO BID 12/30/19 01/17/20 History losartan 25 mg PO HS 01/10/20 01/17/20 History testosterone [AndroGel] 2 pump TRANSDERMAL QAM 01/10/20 01/17/20 History spironolactone 25 mg PO QAM 01/11/20 01/17/20 History thiamine HCl (vitamin B1) [Vitamin 100 mg PO QAM #30 tab 01/11/20 01/17/20 Rx B-1] Substance Abuse History Daily alcohol use until about 2 weeks ago. Ambien misuse Personal History Living Arrangements Comments: Alone in [place]. 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 Newberry Ischemic cardiomyopathy Ischemic colitis Migraine Myocardial Infarction most recent 2013, adjust med and icd inserted Non-ST elevation [place] (NSTEMI) (Inactive) PAD (peripheral artery disease) Pituitary adenoma removal of adenoma from pituitary 2015 Thrombocytopenia Unstable angina (Inactive) Ventricular tachycardia Surgical History H/O hand surgery Right hand tendon repair History of abdominal aortic aneurysm (AAA) repair 2006 History of cardiac defibrillator placement May 2014 History of pituitary surgery August 2016 History of total hip arthroplasty right and left Hx of [id number] bypass right and left leg Family History Mother , at age 46 Breast cancer Other Cancer Denies family history of Ovarian cancer Prostate cancer Myocardial infarction Colorectal cancer Social History Preferred Language: Tristanian Communication Ability: Effective Visual Impairment: No Limitations Hearing Ability: Normal [place] Required: No Beliefs That Will Affect Care: None marital status: marital status details: no children Current Living Situation: Alone current occupational status: retired Other Information That Helps Us Care for You: No Feels Safe at Home: Yes Safety Concerns: Feels Safe At This Time Smoking Status: Former smoker Age Started Using Tobacco: 19 ; Age Quit Using Tobacco: 61 ; packs per day: 1.5 ; Cigarettes Per Day: 20-40 ; Number of Years Since Quit: 13 ; Second Hand Exposure: No ; Hx Alcohol Use: Yes Alcohol type: hard liquor Alcohol Intake Frequency: Daily Alcohol Intake Frequency Comment: 2-3 bourbons daily Hx Substance Use: No Childhood Exposure to Second-Hand Smoke: No Dental Care, Regularly: Yes Physical Activity Frequency: 3-4 Times per Week Seatbelt Use: always Sunscreen Use: Yes Physical Exam Psychiatric: Well-nourished well-developed male appearing his stated age. Dressed in street clothes, adequate hygiene and grooming. Seated in no acute distress, visiting with a friend. Alert, pleasant, but declined to participate in the interview. Irritable edge, focused on seeing Dr. Newberry today. Speech is normal rate, volume, and tone. Thoughts are goal-directed. No paranoia or delusions expressed, no evidence of auditory or visual hallucinations. No statements of harm to himself or others. Insight and judgment are limited. Vital Signs (Past 24 Hours): Last Vital Signs Temp 36.4 C L 01/17/20 22:50 Pulse 74 01/17/20 22:50 Resp 20 01/17/20 22:50 BP 107/74 01/17/20 22:50 Pulse Ox 98 01/17/20 22:50 Review of Systems Patient refused to participate in the assessment Results & Data (PSY) Medications Administered Atorvastatin Calcium (Lipitor) 80 mg PO PM ALEJANDRA Stop: 02/16/20 20:59 Last Admin: 01/17/20 22:00 Dose: 80 mg Documented by: [id number] Fluticasone Furoate (Arnuity Ellipta 100mcg) 1 puffs INH HS ALEJANDRA Stop: 02/16/20 20:59 Last Admin: 01/17/20 22:03 Dose: Not Given Documented by: [id number] Folic Acid (Folvite) 1 mg PO HS ALEJANDRA Stop: 02/16/20 20:59 Last Admin: 01/17/20 22:00 Dose: 1 mg Documented by: [id number] Furosemide (Lasix) 60 mg PO BID17 [facility] Stop: 02/16/20 16:59 Last Admin: 01/18/20 09:19 Dose: 60 mg Documented by: [id number] Admin: 01/17/20 17:40 Dose: Not Given Documented by: [id number] Isosorbide Mononitrate (Imdur Extended Rel) 60 mg PO QAM [facility] Stop: 02/17/20 08:59 Last Admin: 01/18/20 09:20 Dose: 60 mg Documented by: [id number] Losartan Potassium (Cozaar) 25 mg PO [facility] Stop: 02/16/20 20:59 Last Admin: 01/17/20 22:00 Dose: 25 mg Documented by: [id number] Metoprolol Succinate (Toprol Xl) 50 mg PO [facility] Stop: 02/16/20 20:59 Last Admin: 01/17/20 22:06 Dose: 50 mg Documented by: [id number] Miscellaneous (Order Awaiting Action) 1 ea N/A QS [facility] Stop: 02/16/20 15:59 Last Admin: 01/18/20 09:22 Dose: Not Given Documented by: [id number] Admin: 01/18/20 00:40 Dose: Not Given Documented by: [id number] Admin: 01/17/20 15:49 Dose: Not Given Documented by: [id number] Olanzapine (Zyprexa) 2.5 mg PO [facility] Stop: 02/17/20 20:59 Last Admin: 01/18/20 00:00 Dose: 2.5 mg Documented by: [id number] Pantoprazole Sodium (Protonix) 40 mg PO BID [facility] Stop: 02/16/20 20:59 Last Admin: 01/18/20 09:20 Dose: 40 mg Documented by: [id number] Admin: 01/17/20 22:00 Dose: 40 mg Documented by: [id number] Sodium Chloride (Graham Nasal) 1 sprays NA ONE PRN PRN Reason: Dryness Stop: 02/17/20 01:44 Last Admin: 01/18/20 02:43 Dose: 1 sprays Documented by: [id number] Sotalol HCl (Betapace) 80 mg PO BID [facility] Stop: 02/16/20 20:59 Last Admin: 01/18/20 09:19 Dose: 80 mg Documented by: [id number] Admin: 01/17/20 21:59 Dose: 80 mg Documented by: [id number] Spironolactone (Aldactone) 25 mg PO QAM [facility] Stop: 02/17/20 08:59 Last Admin: 01/18/20 09:18 Dose: 25 mg Documented by: [id number] Thiamine HCl (Vitamin B-1) 100 mg PO QAM [facility] Stop: 02/17/20 08:59 Last Admin: 01/18/20 09:19 Dose: 100 mg Documented by: [id number] Umeclidinium/Vilanterol (Anoro Ellipta 62.5/25 Mcg Inh) 1 puffs INH HS [facility] Stop: 02/16/20 20:59 Last Admin: 01/17/20 22:03 Dose: Not Given Documented by: [id number] Coding Level of Care Code 65360 U Intl Hosp Care Lvl 1
--- NOTE | 2020-01-18 14:11 | Discharge Summary ---
Date of Service January 18, 2020 Admission HPI Per Admitting Provider 75-year-old male with history of hypertension/hyperlipidemia/diabetes/CAD with ischemic cardiomyopathy status post AICD placement, pituitary adenoma status post resection, alcohol abuse in remission and nocturnal hypoxia on oxygen nightly. He presents to the ER today with friends with altered mental status. Mr. Alcala was admitted to [facility] from for confusion thought to be secondary to alcohol withdrawal and lack of sleep. He was administered a loading dose of Keppra and started on Keppra twice daily for witnessed seizure. MRI brain was obtained during that visit and found to be unremarkable. He was discharged home. His friends state that his mental status never returned to baseline. He continued to have confusion, bizarre thoughts and poor memory. He returned to [facility] on 01/16/2020 with confusion. He was evaluated by neurology during that admission and diagnoses such as Wernicke's encephalopathy, infectious versus autoimmune causes of AMS were entertained. A lumbar puncture was recommended however, the patient refused. He was discharged at his behest on 01/16 before etiology of encephalopathy could be discovered. He had a friend stay with him last evening and reportedly had about 5 to 6 hours of sleep. However, when he woke this morning he was quite argumentative agitated. Also quite confused with loss of memory,bizarre thoughts, tangential thinking and paranoia. Upon arrival to the ER patient afebrile, hemodynamically stable but with agitation competitive to care. He was administered 10 mg of Haldol and 2 mg of Ativan for sedation. I evaluated him after this therefore, history was obtained from friends at bedside. Patient unable to provide history or participate in exam. Friends report that patient symptoms have been ongoing and progressive for the last 2 weeks, see details above. 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 His friends deny any history of prior psychiatric illnesses or neurological disease. They report no concern for underlying dementia. They state that he does not get much sleep at baseline but this is specifically worsened over the last 3 months. He has also began worrying and was perseverating over his finances. Patient with no sick contacts recently. No recent illnesses. He traveled to [facility] for a golf trip in the past but no recent travel otherwise. No known tick bites or mosquito bites. No recreational drug use or supplements. Patient is not sexually active. ER course: Benztropine, Haldol, Ativan, normal saline Principal Diagnosis Polypharmacy Discharge Exam Constitutional WD/WN, vitals as above Eyes PERRL, conjunctivae normal, anicteric sclerae ENMT external ear and nose normal, oropharynx normal Respiratory normal respiratory effort, lungs clear to auscultation Cardiovascular RRR, no murmur, no edema Gastrointestinal (Abdomen) normal bowel sounds, soft, nontender, no hepatosplenomegaly Musculoskeletal no cyanosis or clubbing, extremities motor strength 5/5 Skin no rashes, warm and dry Neurologic patellar DTR's 2+ bilat, sensation intact and PERRL, EOMI, accommodation nl, no face palsy, no dysarthria Discharge Data Allergies Allergy/AdvReac Type Severity Reaction Status Date / Time amoxicillin Allergy Mild RASH/ITCHIN Verified 01/17/20 09:26 G lactose AdvReac Intermediate GI SYMPTOMS Verified 01/17/20 09:26 benzalkonium chloride AdvReac Mild ITCHING/SWE Verified 01/17/20 09:26 LLING/RASH gluten AdvReac Unknown gluten Verified 01/17/20 09:26 intolerant per EGD Consultations 01/17/20 11:53 ED Decision to Admit Stat 01/17/20 13:51 Consult Neurology Routine Consult Psychiatry Routine Ordered Studies 01/17/20 09:10 CT head/brain wo con Stat 01/19/20 07:00 FL lumbar puncture diagnostic Routine Hospital Course (1) Polypharmacy: 75yo C male with multiple medical problems presenting with AMS, etiology unclear at this time. Labs and images unremarkable. Patient has had recent workup for the same to include a normal brain MRI and labs. No medication changes, mild hyponatremia with Gm=630, CT head unremarkable, no history of trauma, TSH within normal limits of 0.628, EtOH and drug screen negative, Lyme negative, VBG with no hypoxia/hypercarbia, B12 normal at 599 on 01/11/20, Folate >24, Ammonia normal 21.4. Alcohol abuse: - Continue PO thiamine PAD (peripheral artery disease): - Continue Plavix and Atorvastatin CAD (coronary artery disease), [place] coronary artery: - Continue Plavix for now - Continue Metoprolol, Atorvastatin, Losartan Present on Admission?: Yes Chronic systolic CHF (congestive heart failure): - Continue Lasix, Spironolactone - Continue Losartan, Metoprolol and Imdur Chronic respiratory failure with hypoxia: -Continue Trelegy -Continue Albuterol Pituitary adenoma: - s/p removal Seizure: - Patient presently not taking his Keppra - Monitor for seizures Atrial fibrillation: - Presently in NSR - Continue Sotalol - Continue Metoprolol - Continue Apixaban GERD (gastroesophageal reflux disease): - Continue Omeprazole Hyperlipidemia: - Continue Atorvastatin Total Time Total Time Spent Total Time Spent (In Minutes): >30 Discharge Plan Discharge Items Patient Disposition: Home - Self-Care Reason For Visit: METABOLIC ENCEPHALOPATHY Discharge Diagnosis: Polypharmacy Activity: Per Instructions section Non-emergency contact: Primary Care Provider and Granite [employer]ter Call non-emergency contact if: you have any medication questions Follow-up/Referrals: Quirino Hensley MD [Primary Care Provider] - (PT ALREADY HAS TWO APPOINTMENTS THIS COMING WEEK WITH HIS PCP) Diet: Heart Healthy Addtl Attending Provider Instructions: You were seen and evaluated out of concern of altered mental status; during this evaluation it became evident that this could be a result of the large variations in your medications and combinations of medications. In addition to your continued difficulty with sleep, this can lead to numerous other problems. To correct this, we recommend that you stop taking the Ambien and you no longer use this medication to attempt to help you to sleep, and instead you use Trazodone once a day over the next week as a better form of a sleep aid with less p roblems. Pending Studies at Discharge: No Stand-Alone Forms: My [facility], Smoking Cessation Medications and DC Order Prescriptions: New metoprolol succinate 25 mg Tablet Extended Release 24 Hr 25 mg PO HS 30 Days Qty: 30 RF: 0 trazodone 50 mg tablet 50 mg PO DAILY 7 Days Qty: 7 RF: 0 Continued nitroglycerin [Nitrostat] 0.4 mg tablet, sublingual 0.4 mg SL Q5M PRN (Reason: Chest Pain) RF: 0 albuterol sulfate 90 mcg/actuation aerosol powdr breath activated 90 mcg INH Q6H PRN (Reason: shortness of breath or wheezing) Qty: 1 RF: 2 furosemide 40 mg tablet 60 mg PO BID RF: 0 Eliquis 5 mg tablet 5 mg PO BID RF: 0 sotalol 80 mg tablet 80 mg PO BID RF: 0 atorvastatin 80 mg Tablet 80 mg PO PM RF: 0 clopidogrel [Plavix] 75 mg Tablet 75 mg PO QAM RF: 0 omeprazole 20 mg Capsule,Delayed Release(Dr/Ec) 40 mg PO BID RF: 0 folic acid 1 mg Tablet 1 mg PO HS RF: 0 losartan 25 mg tablet 25 mg PO HS RF: 0 testosterone [AndroGel] 20.25 mg/1.25 gram (1.62 %) gel in metered-dose pump 2 pump transdermal QAM RF: 0 spironolactone 25 mg tablet 25 mg PO QAM RF: 0 thiamine HCl (vitamin B1) [Vitamin B-1] 100 mg Tablet 100 mg PO QAM Qty: 30 RF: 0 cholecalciferol (vitamin D3) 2,000 unit Tablet 2,000 unit PO QAM RF: 0 isosorbide mononitrate 60 mg tablet extended release 24 hr 60 mg PO QAM RF: 0 Trelegy Ellipta 100-62.5-25 mcg blister with device 1 inh inhalation HS RF: 0 Discontinued metoprolol succinate 50 mg tablet extended release 24 hr 50 mg PO HS RF: 0 Discharge Orders: Discharge Order (Routine); Ordered 01/18/20 Ordered By: Santos Javier Admission Data Admit Date/Time: 01/17/20 12:49 Attending Provider: Teddy Willams Admit Provider: Stephanie Braxton Primary Care Provider: Quirino Hensley Other Providers: Stephanie Braxton ; Ila Hare ; Halina Becerra Other Interventions: Discharge Summary Assessment (RN) Last Done: 01/18/20 13:57 DC Date/Time DO NOT enter until pt leaves facility: 01/18/20 14:43 Supervising Physician Co-Signing Physician Notes I personally examined the patient and verified all reyez points of history and exam, discussed case, and agree with decision making with Dr Javier. Patient feeling better. Would like to go home. Seems to be mentally sound and understands his situation. Offers no hesitation about a trial of trazodone instead of Ambien. Discussed giving a short prescription of this and then he can follow-up with Dr. Hensley if it is helping to continue it, or adjust the dose if necessary. Discussed with neurology and psychiatry, input greatly appreciated. Vitals noted, in general he is awake and alert pleasant no distress. HEENT normocephalic atraumatic mucous membranes moist. Breathing unlabored no accessory muscle use good effort. Skin shows no rashes no pallor or icterus. Mental status shows him to be aware of his situation, does seem to show capacity. No focal neuro deficits. Altered mental statuscertainly seems highly likely that polypharmacy is at play. It is also possible that he has a mild degree of dementia making the situation worse. At any rate of all of his medications the Ambien certainly is the most high risk for bad outcomes with polypharmacyand we will have this discontinued. Given that he seems to require something for sleep, and has stated to other providers that without Ambien he will simply find another doctor who will prescribe it for him, we thought it wiser to give trial of trazodone 50 mg nightly then to do nothing and risk him seeking Ambien from other sources. I was informed that he had a prescription for Ambien already filled at [facility] pharmacy, and to avoid risk of drug interaction with trazodone and Ambien, as well as to minimize his risk of polypharmacy, I did call [facility] to ask them to cancel that prescription due to our change in therapy (patient did agree to a trial of trazodone instead of Ambien when we talked). Interestingly he did have the prescription requested to [facility] instead, but in discussion with the [facility] pharmac[facility] there was no active prescription of Ambien there. Close outpatient follow-up. Discussed with the patient's litigation specialist Dr. Newberry, and he felt there was no undue risk of adding trazodone to the patient's current med regimen. Informed the patient of this as well. Stable for home, outpatient follow-up. Resident Activity Tracking Resident Involvement: Resident Care Provided Care Provided: Adult Hospital Medicine
--- NOTE | 2020-01-18 16:26 | Billing Data ---
Date of Service January 18, 2020 Coding Level of Care Code 08817 OBS Care - Discharge
[2020-01-18] MEDS ORDERED: OLANZAPINE 2.5 MG TAB PO SCH (21:00)
[2020-01-18] MEDS ORDERED: METOPROLOL SUCC 25MG EXT REL TAB PO SCH (21:00)
[2020-01-20 00:36] LABS: Rapid Plasma Reagin Nonreactive (Nonreactive)
== END 2020-01-18 14:43 | disposition home or self-care (01) ==
LOC: ED 08:38 → 4W 08:38 → SUATTDRO 12:49 → 4W 13:21

== ENCOUNTER 2020-01-26 13:39 | Inpatient (IN) ==
[~2020-01-26 13:39] MED LIST changes: -AMB10 PO; -AMLO2.5T PO; -ASPI1TAB83 PO; -ATOR-26 PO; -CLOB-77 TOP; -CLOP1TAB15 PO; -FOLI1TAB8 PO; +FOLIC ACID 1 MG TAB PO ONE; -LOSA50TA6 PO; -LSX40 PO; -NTRGSL/4 UT; -PRLSR20 PO; -TPRSR/25 PO; -[UNRECOGNIZED DRUG - CODE] TOP
--- NOTE | 2020-01-26 17:20 | XRay Report ---
XR chest 1V portable HISTORY: Altered mental status. COMPARISON: Chest 01/17/2020. FINDINGS: No pneumothorax. No pleural effusions. The heart is mildly enlarged. Left-sided dual-chambe r pacemaker/defibrillator is again noted. Chronic interstitial thickening persists. No new focal lung consolidations to suggest pneumonia. No evidence for pulmonary edema. IMPRESSION: No change in the cardiomegaly and chronic interstitial thickening. ACT 112: Negative or not required by law. Electronically signed by: Abelardo Deutsch M.D. 01/26/2020 5:18 PM
--- NOTE | 2020-01-26 17:26 | CT Scan Report ---
HEAD CT NONCONTRAST CT DOSE: 729.78 mGycm HISTORY: Altered mental status. TECHNIQUE: Multiaxial CT images of the head were performed without the use of intravenous contrast. A utomated exposure control was utilized for this study. A dose lowering technique was utilized adheri ng to the principles of ALARA. Comparison: Head CT 01/17/2020. Findings: Moderate mucosal thickening within the right maxillary sinus with a trace fluid level. This has progressed. Improved aeration within the sphenoid sinus. Postoperative changes again noted withi n the paranasal sinuses. The mastoid air cells are clear. The calvarium and skull base are intact. Th ere is no mass, hematoma, midline shift, acute infarct. White matter hypodensity is nonspecific but s uggestive of microvascular ischemic change. The ventricles and sulci demonstrate mild age-related inv olutional changes. Impression: 1. No acute intracranial abnormality. 2. Acute on chronic right maxillary sinusitis has progressed. Sphenoid sinus disease has improved. ACT 112: Negative or not required by law. Electronically signed by: Abelardo Deutsch M.D. 01/26/2020 5:25 PM
[2020-01-26] MEDS ORDERED: AMOXICILLIN/CLAVULANATE 875 MG TAB PO ONE (17:48)
[2020-01-26 17:54] LABS: INR 1.3 (0.9-1.1); Partial Thromboplastin Time 27.1 Seconds (21.0-31.0)
[2020-01-26 18:00] LABS: Albumin Level 3.7 gm/dl (3.4-5.0); BUN Creatinine Ratio 14.7 (10-20); Calcium 10.1 mg/dl (8.5-10.1); Creatinine Clr Calc Pharmacy 61.5 ml/min; Est GFR (African American) 83.5; Est GFR (Non-African American) 72.1; Magnesium 2.1 mg/dl (1.8-2.4); Potassium 3.9 mmol/L (3.5-5.1)
[2020-01-26 18:10] LABS: Albumin Globulin Ratio 0.9 (0.9-2); Bilirubin,Total 1.1 mg/dl (0.2-1); Globulin 4.3 gm/dl (2.5-4.0); Thyroid Stimulating Hormone 0.335 uIu/ml (0.300-4.500); Troponin I 0.04 ng/ml (0-0.045)
[2020-01-26 18:12] LABS: Basophils # (auto) 0.04 K/uL (0-0.2); Basophils % (auto) 0.5 %; Eosinophils # (auto) 0.14 K/uL (0-0.5); Eosinophils % (auto) 1.8 %; Hematocrit (blood only) 42.1 % (42-52); Hemoglobin 13.9 g/dL (14.0-18.0); Immature Granulocytes # (auto) 0.02 K/uL (0.00-0.02); Immature Granulocytes % (auto) 0.3 %; Lymphocytes # (auto) 1.11 K/uL (1.2-3.4); Lymphocytes % (auto) 13.9 %; Mean Corpuscular Hemoglobin 28.1 pg (25-34); Mean Corpuscular Volume 85.2 fL (80-100); Mean Platelet Volume 10.5 fL (7.4-10.4); Neutrophils # (auto) 5.89 K/uL (1.4-6.5); Neutrophils % (auto) 73.5 %; Platelet Count 173 K/uL (130-400); RDW Standard Deviation 56.6 fL (36.4-46.3); Red Blood Count 4.94 M/uL (4.7-6.1)
[2020-01-26 19:21] LABS: Appearance Urine Clear (Clear); Bilirubin Urine Negative (Negative); Blood Urine Negative (Negative); Color Urine Yellow; Glucose Urine UA Negative (Negative); Ketones Urine Trace (Negative); Leukocyte Esterase Urine Negative (Negative); Nitrite Urine Negative (Negative); Protein Urine Negative (Negative); Specific Gravity Urine 1.009 (1.000-1.030); Urobilinogen Urine Negative (Negative); pH Urine 5.5 (4.5-7.5)
[2020-01-26 19:50] LABS: Amphetamines+Metham, Urine Neg (Neg); Barbiturates, Urine Neg (Neg); Benzodiazepine, Urine Neg (Neg); Cocaine, Urine Neg (Neg); MDMA (Ecstacy), Urine Neg (Neg); Methadone, Urine Neg (Neg); Opiate, Urine Neg (Neg); Phencyclidine, Urine Neg (Neg)
--- NOTE | 2020-01-26 20:18 | History & Physical Report ---
Date of Service January 26, 2020 Assessment & Plan (1) AMS (altered mental status): Admit to PCU on telemetry for observation. Vital signs every 4 hours. Sitter one-to-one. 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 [facility] protocol. We will check for B12 and folate acid levels. Started B12 and folate p.o.. Lorazepam for agitation/anxiety/withdrawal 1 mg p.o. as needed. DVT prophylaxis continue apixaban 5 mg p.o. twice daily which patient takes for A. fib's. Disposition to possibly prison versus inpatient psychiatric unit. Full code Present on Admission?: Yes (2) Hallucinations, visual: As discussed above. Present on Admission?: Yes (3) Polypharmacy: As discussed above. Present on Admission?: Yes (4) Unable to agree with care plan: As discussed above Present on Admission?: Yes (5) Elevated troponin: Troponin x3 with EKG. TTE in a.m. Consider consulting cardiology after receiving the results. Present on Admission?: Yes (6) Thrombocytopenia: Platelets are stable now at 173. Continue monitoring daily. Present on Admission?: Yes (7) Alcohol abuse: Patient states that he stopped drinking alcohol 2 weeks ago. He was placed on [facility] protocol with precautions. Present on Admission?: Yes (8) CAD (coronary artery disease), [place] coronary artery: Continue home medicine apixaban 5 mg p.o. twice daily, atorvastatin 80 mg p.o. every afternoon, clopidogrel 75 mg p.o. every morning, furosemide 60 mg p.o. twice daily, isosorbide mononitrate 60 mg p.o. every morning, losartan 25 mg p.o. nightly, metoprolol 25 mg p.o. nightly, nitroglycerin 0.5 mg as directed PRN, sotalol 80 mg p.o. twice daily, spironolactone 25 mg p.o. every morning. Present on Admission?: Yes (9) Chronic systolic CHF (congestive heart failure): Patient appears to be euvolemic at this time. Continue home medicine as discussed above. Present on Admission?: Yes (10) Seizure: Keppra level pending. Continue Keppra 500 mg p.o. twice daily. Present on Admission?: Yes (11) Atrial fibrillation: Stable. Continue apixaban 5 mg p.o. twice daily. Present on Admission?: Yes History of Present Illness Chief Complaint: Warnicke encephalopathy Primary Care Provider: Quirino Hensley MD The patient is a 75 years old male with past medical history of alcohol abuse for years, GERD, ischemic cardiomyopathy with ICD in place (defibrillator), atrial fibrillation, seizure, pituitary adenoma, gout, chronic respiratory failure with hypoxia, chronic systolic congestive heart failure, coronary artery disease, peripheral artery disease, celiac disease anemia, thrombocytopenia, who is brought by his friend to the emergency room for altered mental status, polypharmacy and visual hallucinations. Patient stopped drinking alcohol 2 weeks ago. Patient is not in withdrawal. Patient exhibits significant gaps in recent memory with preserved remote memory. Patient is not very compliant and threatened to walk out. And moment patient is pleasant and persuasive, he is not sure why we are admitting him to the hospital. Patient friend reports that that this is patient's fourth hospitalization and he is not taking Ambien anymore his drug screen was negative in his PCP office. Patient forgets taking his medication. On occasion patient is hallucinating and gets into improper conduct in the stores. 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 Labs are reviewed: WBC is 8, hemoglobin 13.9, hematocrit 42.1, platelets 173, PT 13, INR 1.3, APTT 27.1. Sodium 134, potassium 3.9, chloride 103, anion gap 8, BUN 15, creatinine 1.02, GFR 72.1,Total bili 1.1, AST 26, ALT 20, alkaline phosphatase 95, ammonia not checked. Troponin 0.04. Decision was made to admit patient to PCU on telemetry for borderline troponin, hallucinations, Korsakoff encephalopathy and placement to possibly prison. Allergies Allergy/AdvReac Type Severity Reaction Status Date / Time amoxicillin Allergy Mild RASH/ITCHIN Verified 01/26/20 16:47 G lactose AdvReac Intermediate GI SYMPTOMS Verified 01/26/20 16:47 benzalkonium chloride AdvReac Mild ITCHING/SWE Verified 01/26/20 16:47 LLING/RASH gluten AdvReac Unknown gluten Verified 01/26/20 16:47 intolerant per EGD Home Medications Home Medications Medication Instructions Recorded Confirmed Type atorvastatin 80 mg PO QPM 11/13/18 01/26/20 History clopidogrel [Plavix] 75 mg PO QAM 11/13/18 01/26/20 History folic acid 1 mg PO QAM 11/13/18 01/26/20 History omeprazole 40 mg PO BID 11/13/18 01/26/20 History nitroglycerin 0.4 mg sublingual 0.4 mg SL DIRECTED PRN 08/29/19 01/26/20 History tablet Trelegy Ellipta 1 inh INHALATION HS 09/22/19 01/26/20 History isosorbide mononitrate 60 mg PO QAM 09/22/19 01/26/20 History apixaban 5 mg tablet 5 mg PO BID 12/30/19 01/26/20 History furosemide 40 mg tablet 60 mg PO BID tab 12/30/19 01/26/20 History sotalol 80 mg tablet 80 mg PO BID 12/30/19 01/26/20 History losartan 25 mg PO HS 01/10/20 01/26/20 History testosterone [AndroGel] 2 pump TRANSDERMAL QAM 01/10/20 01/26/20 History spironolactone 25 mg PO QAM 01/11/20 01/26/20 History thiamine HCl (vitamin B1) [Vitamin 100 mg PO QAM #30 tab 01/11/20 01/26/20 Rx B-1] metoprolol succinate 25 mg PO HS 30 Days #30 tab 01/18/20 01/26/20 Rx albuterol sulfate 90 mcg INH Q6H PRN 01/26/20 01/26/20 History cholecalciferol (vitamin D3) 2,000 unit PO DAILY 01/26/20 01/26/20 History [Vitamin D3] levetiracetam 500 mg PO BID 01/26/20 01/26/20 History trazodone 50 mg PO HS 01/26/20 01/26/20 History Past Med/Surg History Medical History Alcohol abuse Anemia Arthritis CAD (coronary artery disease), [place] coronary artery Celiac disease Chronic respiratory failure with hypoxia Chronic systolic CHF (congestive heart failure) Diabetes Emphysema of lung GERD (gastroesophageal reflux disease) Gout Hyperlipidemia Hypertension ICD (implantable cardioverter-defibrillator) in place medtronic [address] Newberry Ischemic cardiomyopathy Ischemic colitis Migraine Myocardial Infarction most recent 2013, adjust med and icd inserted Non-ST elevation [place] (NSTEMI) (Inactive) PAD (peripheral artery disease) Pituitary adenoma removal of adenoma from pituitary 2015 Thrombocytopenia Unstable angina (Inactive) Ventricular tachycardia Surgical History H/O hand surgery Right hand tendon repair History of abdominal aortic aneurysm (AAA) repair 2006 History of cardiac defibrillator placement May 2014 History of pituitary surgery August 2016 History of total hip arthroplasty right and left Hx of [id number]-gebrory bypass right and left leg Family History Mother , at age 46 Breast cancer Other Cancer Denies family history of Ovarian cancer Prostate cancer Myocardial infarction Colorectal cancer Social History Preferred Language: Urdu Communication Ability: Effective Visual Impairment: No Limitations Hearing Ability: Normal Livestock Farmers Required: No Beliefs That Will Affect Care: None marital status: marital status details: no children Current Living Situation: Alone current occupational status: retired Other Information That Helps Us Care for You: No Feels Safe at Home: Yes Safety Concerns: Feels Safe At This Time Smoking Status: Never smoker Age Started Using Tobacco: 19 ; Age Quit Using Tobacco: 61 ; packs per day: 1.5 ; Cigarettes Per Day: 20-40 ; Do You Dip or Chew Tobacco: No ; Number of Years Since Quit: 13 ; Second Hand Exposure: No ; Tobacco Cessation Education Requested by Patient: No Hx Alcohol Use: Yes Alcohol type: hard liquor Alcohol Intake Frequency: Daily Alcohol Intake Frequency Comment: 2-3 bourbons daily Hx Substance Use: No Childhood Exposure to Second-Hand Smoke: No Dental Care, Regularly: Yes Physical Activity Frequency: 3-4 Times per Week Seatbelt Use: always Sunscreen Use: Yes Review of Systems Review of Systems: All systems reviewed & are unremarkable except as noted in HPI & below Physical Exam Constitutional: WD/WN, vitals as above well developed Eyes: PERRL, conjunctivae normal, anicteric sclerae ENMT: Ears: + hearing impairment Neck: trachea midline, no thyromegaly Respiratory: normal respiratory effort, lungs clear to auscultation Cardiovascular: Heart Sounds: normal S1 and normal S2 Palpation: + palpable S3 Vessels: dorsalis pedis pulses present ICD placed in the left chest Gastrointestinal (Abdomen): normal bowel sounds, soft, nontender, no hepatosplenomegaly Musculoskeletal: no cyanosis or clubbing, extremities motor strength 5/5 Skin: no rashes, warm and dry Neurologic: patellar DTR's 2+ bilat, sensation intact Psychiatric: Thought Process: + tangential thought process Thought Content: + compulsions and + self deprecation Suicidal Thoughts: denies suicidal plan Homicidal Thoughts: denies homicidal plan Insight: + limited insight Judgement: + limited judgement and + impaired judgement Significant recent memory loss. Preserved remote memory. Lymphatic: no cervical or axillary lymphadenopathy Results & Data Vital Signs (Past 12 Hours) Vital Signs Temp Pulse Pulse Resp BP BP Pulse Ox 01/26/20 19:12 89 20 122/88 97 01/26/20 16:00 96 01/26/20 13:51 36.4 C L 83 16 131/83 96 Code Status & VTE Plan Code Status Full code VTE Prophylaxis Plan VTE Prophylaxis will be ordered: Yes PG Care Time/CCT Total # of Minutes Spent Total Time Spent with Patient: Total time spent is greater than 50% in coordination of care (as documented) at patient's floor/unit and/or counseling patient: Coding Level of Care Code 34099 Initial Inpt Care Lvl 3 Diagnoses AMS (altered mental status) R41.82 Altered mental status type: unspecified Hallucinations, visual R44.1 Polypharmacy Z79.899 Unable to agree with care plan Z91.89 Elevated troponin R79.89 Thrombocytopenia D69.6 Alcohol abuse F10.10 CAD (coronary artery disease), [place] coronary artery I25.118 [place] vs. transplanted heart: [place] heart Associated angina: with stable angina Chronic systolic CHF (congestive heart failure) I50.22 Seizure R56.9 Atrial fibrillation I48.91 Atrial fibrillation type: unspecified (1) AMS (altered mental status) Altered mental status type: unspecified Qualified Code(s): R41.82 - Altered mental status, unspecified (2) CAD (coronary artery disease), [place] coronary artery [place] vs. transplanted heart: [place] heart Associated angina: with stable angina Qualified Code(s): I25.118 - Atherosclerotic heart disease of [place] coronary artery with other forms of angina pectoris (3) Atrial fibrillation Atrial fibrillation type: unspecified Qualified Code(s): I48.91 - Unspecified atrial fibrillation
[2020-01-26] MEDS ORDERED: POLYETHYLENE (MIRALAX) 17 GM PACK PO PRN (21:18)
[2020-01-26] MEDS ORDERED: MAGNESIUM HYDROXIDE SUSP 30 ML UDC PO PRN (21:18)
[2020-01-26] MEDS ORDERED: ALUMINUM/MAGNESIUM SUSP 30 ML UDC PO PRN (21:18)
[2020-01-26] MEDS ORDERED: NITROGLYCERIN SL 0.4 MG/TAB TAB SL PRN (21:18)
[2020-01-26] MEDS ORDERED: ONDANSETRON INJ 2 MG/ML 2 ML VIAL IV PRN (21:18)
[2020-01-26] MEDS ORDERED: ACETAMINOPHEN 325 MG TAB PO PRN (21:18)
[2020-01-26] MEDS ORDERED: LORazepam 1 MG TAB PO PRN (21:24)
[2020-01-26] MEDS ORDERED: ALBUTEROL HFA 8 GM INHALER INH PRN (21:39)
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
[2020-01-26] MEDS: THIAMINE HCL 100 MG TAB PO SCH (22:13)
[2020-01-26] MEDS: FUROSEMIDE 20 MG TAB PO SCH (22:28)
[2020-01-26] MEDS: APIXABAN 5 MG TABLET PO SCH (22:28)
[2020-01-26] MEDS: ATORVASTATIN 40 MG TAB PO SCH (22:29)
[2020-01-26] MEDS: PANTOprazole 40 MG TAB PO SCH (22:29)
[2020-01-26] MEDS: SOTALOL HCL 80 MG TAB PO SCH (22:30)
[2020-01-26] MEDS: METOPROLOL SUCC 25MG EXT REL TAB PO SCH (22:30)
[2020-01-26] MEDS: levETIRAcetam 500 MG TAB PO SCH (22:30)
[2020-01-26] MEDS: LOSARTAN POTASSIUM 25 MG TAB PO SCH (22:31)
[2020-01-26] MEDS: UMECLIDINIUM/VILANTEROL 62.5/25MCG 7 PUFFS/INHALER INH SCH ×2 (22:32→22:37)
[2020-01-26] MEDS: FLUTICASONE FUROATE 100MCG 14 PUFFS/INHALER INH SCH ×2 (22:33→22:38)
[2020-01-26] MEDS: TRAZODONE HCL 50 MG TAB PO SCH (22:36)
[2020-01-26 22:59] LABS: Folate (Folic Acid) 21.53 ng/ml (>5.38)
[2020-01-27 06:24] LABS: Estimated Average Glucose 151 mg/dl; Hemoglobin A1C 6.9 % (4.5-5.6)
[2020-01-27] MEDS ORDERED: OLANZAPINE 2.5 MG TAB PO PRN (07:16)
[2020-01-27] MEDS ORDERED: AMOXICILLIN/CLAVULANATE 875 MG TAB PO SCH (08:00)
[2020-01-27] MEDS ORDERED: THIAMINE HCL 100 MG TAB PO SCH (09:00)
--- NOTE | 2020-01-27 10:18 | Hospitalist Progress Note ---
Date of Service January 27, 2020 Assessment & Plan (1) AMS (altered mental status): Unclear exact etiology but most likely I suspect this is related to his alcohol use and possible underlying Korsakoff's. Does not appear delirious more manic but no underlying psychiatric diagnosis from longer ago. Patient undeniably currently lacks capacity to make the decision to leave the hospital, his medications or even what he has to eat as he cannot verbalize why he is here and what the concerns are regarding his ability to cope at home. He fixates on his [employer] store experience and and appears manic with multiple unintelligible diagrams drawn. He is unable to retain any information I give him regarding any medications he is taking. He is fixated upon lactose and gluten intolerence that will kill him in a minute when his retirement friend tells me he eats ice cream from [employer] and [employer] without any issues. GARCIA - Williams his friend will bring in paperwork confirming his POA as the patient's brother Josemanuel. For now Josemanuel is his next of kin and wishes the patient to remain in hospital and does not feel he is safe to return home. He cannot be discharged without Josemanuel's permission at present and security should be called if the patient tries to leave. Acute onset would suggest underlying medical/neurological condition; stroke, hyperthyroidism, brain tumor, neurosyphilis previously ruled out. He does not appear to have any Parkinsonism, Vesna's or Wernicke's triad (other than encephalopathy). LP discussed at last hospitalization therefore consulted Dr Vaz [neuro], but agree this would be difficult and unlikely will give any answers. Possibly a side effect of Keppra but as per his friend he is unlikely taking this medication at home and his symptoms appeared to start prior to his seizure admission . An underlying psychiatric Bipolar condition less likely. Appreciate psychiatry consult. (2) Alcoholic Korsakoff syndrome: Although patient is able to recollect certain facts such as my name there are plenty of examples of anterograde memory amnesia such as him saying he sold his car, confused about when recent events took place, confabulation, repeating the same thing to me on multiple occasions throughout the day. These support the diagnosis of Korsakoffs without Wernicke's more classic triad. Patient refused thiamine level to be taken. Therefore will just treat with IV thiamine 500mg TID as discussed with his brother. (3) Cedric: Patient currently appears very manic and does not stop talking when I'm in the room. Tangential speech. Fixations. Possible financial impulsivity although unclear if he has actually spent any of his money, other than his recent phone. Agree with psychiatry that underlying primary psychiatric disorder less likely given acute nature of deterioration. Agree would benefit with a mood stabilizer at least in at least the short term but primarily will give lamotrigine as anti-seizure medication. (4) Hallucinations, visual: None noticed while admitted but reports from his long time friend of talking to people who aren't there at home when left alone. Supports diagnosis of Korsakoff's. (5) Polypharmacy: Unclear how contributory as may or may not be taking his medications at home. Previous admission felt to be contributory to benzodiazepine use. (6) Unable to agree with care plan: Patient currently lacks capacity to make his own medical decisions as above. Will continue to reassess throughout hospital stay. (7) Elevated troponin: Patient refuses further workup for this at this time. Unable to have him wear a environmental monitoring specialist. (8) Thrombocytopenia: Platelets are stable now at 173. Continue monitoring daily. (9) Alcohol abuse: Patient states that he stopped drinking alcohol 2 weeks ago. He was placed on CIWA protocol with precautions. (10) CAD (coronary artery disease), grindstone coronary artery: Continue home medicine apixaban 5 mg p.o. twice daily, atorvastatin 80 mg p.o. every afternoon, clopidogrel 75 mg p.o. every morning, furosemide 60 mg p.o. twice daily, isosorbide mononitrate 60 mg p.o. every morning, losartan 25 mg p.o. nightly, metoprolol 25 mg p.o. nightly, nitroglycerin 0.5 mg as directed PRN, sotalol 80 mg p.o. twice daily, spironolactone 25 mg p.o. every morning. (11) Chronic systolic CHF (congestive heart failure): Patient appears to be euvolemic at this time. Continue home medications as patient willing. (12) Seizure: Keppra level pending. Suspect not taking this. Will switch to lamotrigine as per neurology recommendations as this would also help cedric. (13) Atrial fibrillation: Continue sotalol for rhythm control. NSR on admission EKG but patient non-compliant with environmental monitoring specialist to know if paroxysmals. Continue apixaban 5 mg p.o. twice daily. (14) Pre-syncope: Suspect underlying arrhythmia during these episodes. Will try to get a pacemaker check if patient willing. Unfortunately patient is non-compliant with the environmental monitoring specialist otherwise we would be able to have picked these up. (15) DVT prophylaxis: Continue apixaban 5mg BID (noted patient not willing to take medications at present) Admission and Anticipated Discharge Date Admission Date: January 26, 2020 Patient currently refusing all medication. Benefit of sedation and forced medications less than risk especially with arrhythmias and sotalol use Plan as above including PRN olanzapine discussed with his power of divorce attorney Josemanuel over the phone who agreed with the above plan. Subjective Patient refusing all of his medications this morning. Tells me Dr Newberry needs to approve all of his medications. Unable to understand that these medications for his heart were prescribed by Dr Newberry for him as an outpatient. He wishes to hire a private jet to fly to [place] to talk to Dr Newberry about his medications. On asking him why he is here he tells me about the [employer] for approximately 20 minutes and how he offered $2000 to the them to get a new Galaxy note S10 rather than his pixel 4 that he got just 2 days earlier. 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 Also fixates on how he will in less than a minute if he doesn't know where the food he is given comes from. He reports he needs a lactose and gluten free meals an needs to confirm the source of the food otherwise he may . As per his retirement friend Williams who brought the patient in: The patient has been declining for approximately 2.5 weeks shortly prior to coming into the ER for his admission with the seizure. He does not think the patient is taking any of his medications at home. The patient specifically told him he would not take the Keppra even though Dr Newberry approved it. He has been becoming less rational with his thinking over this time span and if forgetting the timeline of events such as when they went to breakfast or who was with him when. When the patient is at home by himself; Williams has found him talking to people who aren't there. The patient has been making up multiple stories such as selling his car to get a new Chevy (this was after his driving license was revoked). I discussed the patient with his brother Josemanuel who is the presumed power of divorce attorney although we are yet to get the official paperwork. He is the only next of kin. He reports patient is not safe to return home and wishes the patient to remain in hospital. Review of Systems Review of Systems: Unobtainable due to cognitive status Physical Exam Constitutional: WD/WN, vitals as above Eyes: + anicteric sclerae; normal pupil size Respiratory: normal respiratory effort, lungs clear to auscultation Cardiovascular: Rate/Rhythm: regular rate and regular rhythm Extremities: normal capillary refill Gastrointestinal (Abdomen): normal bowel sounds, soft, nontender, no hepatosplenomegaly Musculoskeletal: no cyanosis or clubbing, extremities motor strength 5/5 Skin: no rashes, warm and dry Neurologic: moves all extremities, awake and + confused Psychiatric: Orientation: alert and oriented x 3 Apperance: appropriately dressed Eye Contact: good eye contact Motor Behavior: + psychomotor agitation Speech: + pressured speech Affect: euthymic affect Thought Process: + tangential thought process, + flight of ideas, + looseness of associations, + perseveration and + confabulations; + thought process not clear or coherent Thought Content: + preoccupation ([employer] store, diet, Dr Newberry); no delusions Suicidal Thoughts: denies suicidal thoughts Homicidal Thoughts: denies homicidal thoughts Hallucinations: no auditory hallucinations and no visual hallucinations Cognition: recent memory grossly intact (although confusing multiple events together) Insight: + impaired insight Judgement: + impaired judgement Results & Data ([facility]) Vital Signs (Past 12 Hours) Vital Signs Temp Pulse Pulse Pulse Resp BP BP 01/27/20 07:11 36.4 C L 72 20 114/76 01/27/20 05:20 36.3 C L 71 16 120/43 L 01/26/20 23:08 36.5 C 86 17 122/85 01/26/20 22:50 96 H Pulse Ox 01/27/20 07:11 94 01/27/20 05:20 96 01/26/20 23:08 95 01/26/20 22:50 PG Care Time/CCT Total # of Minutes Spent Total Time Spent with Patient: Total time spent is greater than 50% in coordination of care (as documented) at patient's floor/unit and/or counseling patient: Coding Level of Care Code 96469 Subseq Hosp Care Lvl 3 Diagnoses AMS (altered mental status) R41.82 Altered mental status type: unspecified Alcoholic Korsakoff syndrome F10.96 Cedric F30.9 Hallucinations, visual R44.1 Polypharmacy Z79.899 Unable to agree with care plan Z91.89 Elevated troponin R79.89 Thrombocytopenia D69.6 Alcohol abuse F10.10 CAD (coronary artery disease), grindstone coronary artery I25.118 Associated angina: with stable angina [place] vs. transplanted heart: grindstone heart Chronic systolic CHF (congestive heart failure) I50.22 Seizure R56.9 Atrial fibrillation I48.91 Atrial fibrillation type: unspecified Pre-syncope R55 DVT prophylaxis Z29.9 (1) Atrial fibrillation Atrial fibrillation type: unspecified Qualified Code(s): I48.91 - Unspecified atrial fibrillation (2) CAD (coronary artery disease), grindstone coronary artery Associated angina: with stable angina [place] vs. transplanted heart: grindstone heart Qualified Code(s): I25.118 - Atherosclerotic heart disease of grindstone coronary artery with other forms of angina pectoris (3) AMS (altered mental status) Altered mental status type: unspecified Qualified Code(s): R41.82 - Altered mental status, unspecified
[2020-01-27] MEDS: SOTALOL HCL 80 MG TAB PO SCH ×2 (10:40→21:05)
[2020-01-27] MEDS: APIXABAN 5 MG TABLET PO SCH ×2 (10:40→21:05)
[2020-01-27] MEDS: SPIRONOLACTONE 25 MG TAB PO SCH (10:40)
[2020-01-27] MEDS: CHOLECALCIFEROL 1,000 UNITS 25 MCG TAB PO SCH (10:41)
[2020-01-27] MEDS: CLOPIDOGREL BISULFATE 75 MG TAB PO SCH (10:41)
[2020-01-27] MEDS: PANTOprazole 40 MG TAB PO SCH ×2 (10:41→20:59)
[2020-01-27] MEDS: FUROSEMIDE 20 MG TAB PO SCH ×2 (10:41→21:05)
[2020-01-27] MEDS: FOLIC ACID 1 MG TAB PO SCH (10:41)
[2020-01-27] MEDS: ISOSORBIDE MONO EXTENDED REL 60 MG TABCR PO SCH (10:41)
[2020-01-27] MEDS: levETIRAcetam 500 MG TAB PO SCH (10:41)
[2020-01-27] MEDS: THIAMINE HCL 100 MG TAB PO SCH (10:41)
[2020-01-27] MEDS ORDERED: LORazepam 1 MG TAB ONE (10:44)
--- NOTE | 2020-01-27 10:57 | Electrocardiogram Report ---
Test Reason : Blood Pressure : / mmHG Vent. Rate : 066 BPM Atrial Rate : 066 BPM P-R Int : 204 ms QRS Dur : 106 ms QT Int : 474 ms P-R-T Axes : 078 -10 118 degrees QTc Int : 496 ms Normal sinus rhythm Inferior infarct (cited on or before 04-JUN-1995) Abnormal ECG When compared with ECG of 17-JAN-2020 08:44, Premature ventricular complexes are no longer Present Criteria for Anterior infarct are no longer Present Confirmed by Quirino hSetty ([id number]) on 01/27/2020 10:57:07 AM Referred By: Quirino Hensley Confirmed By:Quirino Shetty
--- NOTE | 2020-01-27 11:42 | Neurology Consultation ---
Date of Consultation January 27, 2020 Assessment & Plan (1) AMS (altered mental status): (2) Seizure: (3) Pituitary adenoma: (4) Insomnia: Very difficult and confusing case from a neurologic standpoint: He keeps presenting (3 or 4 times now in the last several weeks) with confusion, altered mental status, paranoia or inability to make good decisions at home. Friends or family are the ones who bring him in because they feel he cannot function well at home on his own. He has access to benzodiazepines and other medications as well as alcohol but it is unknown how much he does or does not take of these medications and how compliant he is with the medications he is supposed to take. In mid December he had a witnessed generalized tonic-clonic seizure once in the ER. He has been on levetiracetam 500 mg twice daily since although I am not certain he is compliant. I have seen him now twice during this time frame and each time he seems to be fairly lucid, with reasonable memory, normal speech and no focal neurologic findings, meningeal signs, or obvious encephalopathy. MRI of the brain with without contrast recently has been unremarkable as have laboratory studies and other testing. An LP was mentioned as a possibility to rule out underlying inflammation but the patient refused that last admission. He may very well have a mild underlying dementia (alcoholic or otherwise) with fluctuation in cognition due to medication or substance abuse. Apparently has not been using alcohol and he does not have any signs of alcohol withdrawal syndrome currently. Today, he seems almost manic but he is not delirious. Recommendations: 1. It is clear that every time the patient is sent home he is just brought right back to the hospital by family or friends for not functioning. Patient self denies any problems and wants to just go home. This is a significant social service problem and needs to be solved 2. An LP could be performed under fluoroscopy but I am not certain that it would add anything to the case and I am not certain the patient would agree to it anyway. Certainly, I have no pressing reason to order an LP today. 3. Avoid all benzodiazepines and alcohol. 4. I believe Psychiatry should be able to offer something for this patient given his current condition. 5. Some individuals have cognitive side effects to levetiracetam. We could switch him to another anticonvulsant although the levetiracetam dose is rather well (and were not even sure if he is compliant). Ideally I would switch to lamotrigine as this should not affect his mental status and may help mood swings. We would start at 25 mg twice daily and each week increased by 25 mg twice a day until we reach a target dose of 100 mg twice daily. If this is agreeable, the levetiracetam could be tapered off during this time. 6. He may benefit from formal neuropsychological testing as an outpatient, if he agrees to this. Otherwise, I have little else to offer this patient from a neurologic standpoint at this time. Overall, I spent a total of 60 minutes with this case including review of records, review of MRI films, direct evaluation the patient at bedside, and discussing the case with the patient at bedside, and Dr. Cohen including differential diagnosis and treatment options. History of Present Illness Reason for Consultation: Patient is a 75-year-old, who I was asked to see at the request of Dr. Cohen, for neurologic consultation regarding altered mental status. Requesting Physician: Dr. Cohen Attending Physician: Harinder Cohen MD History of Present Illness I 1st saw this patient in 2013 post cardiac arrest with encephalopathy. He did well and recovered without any obvious neurologic or mental status problems. Patient had no history of seizures or strokes. In 2013 he had a pacemaker defibrillator implanted for ischemic cardiomyopathy as well as coronary disease. He has been in atrial fibrillation but was cardioverted in October [address] Newberry and has been in normal sinus rhythm since. He has a diagnosis of diabetes, hypertension, dyslipidemia, COPD, and ischemic colitis. And 2016 at pituitary adenoma of rather large size was removed at the [facility]. According to family members he has not had any significant dementia or confusion although in the last few months he has had trouble sleeping and taken quite a bit of zolpidem. Because of his sleep issues he had stepped up his alcohol usage (bourbon) to 2 or 3 double shots per night. I next saw this patient January 11, 2020. He had not had alcohol for 48 hours but had been admitted for intermittent confusion that have been going on since January 06. He was being somewhat irrational and paranoid with word-finding difficulties and sleep issues over that timeframe as well. He ended up being admitted January 10 with no focal neurologic findings but tangential thoughts and speech issues with short-term memory problems. He had a witnessed generalized tonic-clonic seizure in the emergency room and was given IV Ativan and 1 g of Keppra. He was supposed to be discharged on to 500 mg twice daily of Keppra but the family is not certain that he was compliant with medication. He was discharged on January 11 after an MRI of the brain with without contrast was unremarkable. He continues to have intermittent confusion and was readmitted January 15. He saw Dr. Hare on January 16 who found no specific abnormalities on exam. She wondered if an LP would be useful to rule out underlying inflammatory disease but the patient refused the LP. Patient also saw Dr. schumacher January 18 who felt that there was no significant psychiatric problem although she possibly about a delirium from an underlying alcoholic dementia and substance use. He was discharged January 18 and again has had intermittent confusion and irrational thinking, being admitted once again January 25. Apparently he is not had any alcohol consumption since before I saw him January 11. He still uses zolpidem but it is uncertain how much. It is uncertain if he is compliant with medications. I was asked to see him again today by Dr. Cohen because of altered mental status. Patient himself denies any pain or headaches. He feels that he is the best I have felt since June. He is quite animated and denies any a physical issues. He thinks his memory is better than it was since August. January 25 laboratory studies revealed a CBC that was unremarkable. Chem profile showed a sodium of 134 with hemoglobin A1c of 6.9. Vitamin B12 was 1063, folate was 21.5 and TSH was 0.335. Urinalysis was unremarkable. In December, RPR and Lyme antibody titers were negative. Tox screens have been negative as well. A CT scan of the head December 28 showed no acute changes but there was a little bit of right maxillary sinusitis worse than the previous scan. Allergies Allergy/AdvReac Type Severity Reaction Status Date / Time amoxicillin Allergy Mild RASH/ITCHIN Verified 01/26/20 16:47 G lactose AdvReac Intermediate GI SYMPTOMS Verified 01/26/20 16:47 benzalkonium chloride AdvReac Mild ITCHING/SWE Verified 01/26/20 16:47 LLING/RASH gluten AdvReac Unknown gluten Verified 01/26/20 16:47 intolerant per EGD Home Medications Home Medications Medication Instructions Recorded Confirmed Type atorvastatin 80 mg PO QPM 11/13/18 01/26/20 History clopidogrel [Plavix] 75 mg PO QAM 11/13/18 01/26/20 History folic acid 1 mg PO QAM 11/13/18 01/26/20 History omeprazole 40 mg PO BID 11/13/18 01/26/20 History nitroglycerin 0.4 mg sublingual 0.4 mg SL DIRECTED PRN 08/29/19 01/26/20 History tablet Trelegy Ellipta 1 inh INHALATION HS 09/22/19 01/26/20 History isosorbide mononitrate 60 mg PO QAM 09/22/19 01/26/20 History apixaban 5 mg tablet 5 mg PO BID 12/30/19 01/26/20 History furosemide 40 mg tablet 60 mg PO BID tab 12/30/19 01/26/20 History sotalol 80 mg tablet 80 mg PO BID 12/30/19 01/26/20 History losartan 25 mg PO HS 01/10/20 01/26/20 History testosterone [AndroGel] 2 pump TRANSDERMAL QAM 01/10/20 01/26/20 History spironolactone 25 mg PO QAM 01/11/20 01/26/20 History thiamine HCl (vitamin B1) [Vitamin 100 mg PO QAM #30 tab 01/11/20 01/26/20 Rx B-1] metoprolol succinate 25 mg PO HS 30 Days #30 tab 01/18/20 01/26/20 Rx albuterol sulfate 90 mcg INH Q6H PRN 01/26/20 01/26/20 History cholecalciferol (vitamin D3) 2,000 unit PO DAILY 01/26/20 01/26/20 History [Vitamin D3] levetiracetam 500 mg PO BID 01/26/20 01/26/20 History trazodone 50 mg PO HS 01/26/20 01/26/20 History Patient History Medical History Alcohol abuse Anemia Arthritis CAD (coronary artery disease), eyak coronary artery Celiac disease Chronic respiratory failure with hypoxia Chronic systolic CHF (congestive heart failure) Diabetes Emphysema of lung GERD (gastroesophageal reflux disease) Gout Hyperlipidemia Hypertension ICD (implantable cardioverter-defibrillator) in place medtronic [address] Newberry Ischemic cardiomyopathy Ischemic colitis Migraine Myocardial Infarction most recent 2013, adjust med and icd inserted Non-ST elevation TN (NSTEMI) (Inactive) PAD (peripheral artery disease) Pituitary adenoma removal of adenoma from pituitary 2016 Thrombocytopenia Unstable angina (Inactive) Ventricular tachycardia Surgical History H/O hand surgery Right hand tendon repair History of abdominal aortic aneurysm (AAA) repair 2006 History of cardiac defibrillator placement May 2014 History of pituitary surgery August 2016 History of total hip arthroplasty right and left Hx of [id number] bypass right and left leg Family History Mother , at age 46 Breast cancer Other Cancer Denies family history of Ovarian cancer Prostate cancer Myocardial infarction Colorectal cancer Social History Preferred Language: Bulgarian Communication Ability: Effective Visual Impairment: No Limitations Hearing Ability: Normal Sous Chef Required: No Beliefs That Will Affect Care: None marital status: marital status details: no children Current Living Situation: Alone current occupational status: retired Other Information That Helps Us Care for You: No Feels Safe at Home: Yes Safety Concerns: Feels Safe At This Time Smoking Status: Never smoker Age Started Using Tobacco: 19 ; Age Quit Using Tobacco: 61 ; packs per day: 1.5 ; Cigarettes Per Day: 20-40 ; Do You Dip or Chew Tobacco: No ; Number of Years Since Quit: 13 ; Second Hand Exposure: No ; Tobacco Cessation Education Requested by Patient: No Hx Alcohol Use: Yes Alcohol type: hard liquor Alcohol Intake Frequency: Daily Alcohol Intake Frequency Comment: 2-3 bourbons daily Hx Substance Use: No Childhood Exposure to Second-Hand Smoke: No Dental Care, Regularly: Yes Physical Activity Frequency: 3-4 Times per Week Seatbelt Use: always Sunscreen Use: Yes Review of Systems Constitutional: no fever, no fatigue and no weakness Eyes: no diplopia, no eye pain and no worsening vision Ear, Nose, Mouth, Throat: no ear pain, no tinnitus, no hearing loss, no dizziness, no snoring, no hoarseness and no dysphagia Respiratory: no cough and no dyspnea Cardiovascular: no chest pain, no palpitations and no lightheadedness Gastrointestinal: no abdominal pain, no nausea and no vomiting Genitourinary: no urinary hesitancy and no urinary incontinence Musculoskeletal: + joint pain (Chronic hip pain bilaterally); no back pain, no neck pain, no radicular pain and no myalgia Integumentary: no rash and no lesions Neurologic: no gait abnormality, no localized weakness, no generalized weakness, no tingling, no numbness, no tremor(s), no abnormal movements, no headache(s), no abnormal speech, no confusion and no memory loss Psychiatric: no depression, no irritability, no anxiety, no difficulty concentrating, no confusion and no hallucinations Endocrine: no fatigue and no flushing Hematologic / Lymphatic: no easy bleeding and no easy bruising Allergy / Immunological: no urticaria and no problem reported Physical Exam Physical Exam: The patient is right-handed. The patient is awake, alert, and attentive. Speech is normal without any aphasia or dysarthria. He does have a bit of animation today not present the last time I saw him with a tendency to appear to be somewhat manic. He is not paranoid today and does seem to be able to concentrate and stay on task with his sentences. There is not a lot of tangential thinking. He can get focused on hi s vision and phone however. he can name objects, repeat phrases, and has normal spontaneous speech. Mentation and thought processes are intact, with orientation to person, place and time, and normal fund of knowledge. Attention and concentration are normal. Mood and affect are normal and appropriate. General appearance and grooming are normal. Short and long-term memory are intact to conversation. The discs are sharp with positive venous pulsations bilaterally. There are no exudates, hemorrhages, or blood vessel changes seen. Pupils are 4 mm bilaterally and reactive to light. Extraocular eye muscles are intact without nystagmus. Visual acuity and visual edgar seem normal grossly to confrontation. There are no deficits to sensation in the face in all 3 distributions of the fifth cranial nerve bilaterally. Corneal reflexes are positive bilaterally. Facial strength and symmetry was normal bilaterally. Hearing seems normal to whisper and finger rub bilaterally. Palate moves well without asymmetry. There is normal sternocleidomastoid and trapezius (shoulder shrug) strength bilaterally. Tongue is midline with good strength bilaterally. Neck has a full range of motion without discomfort. There are no cervical bruits bilaterally. There are no cranial or ocular bruits. Heart is without murmur. There is a regular rhythm and rate. Cervical, thoracic, and lumbar spine are nontender to palpation. Gait is narrow based, with good arm swing, turns, and stance. With outstretched arms there is no drift. There are no resting, postural, or action tremors. There is no ataxia with finger to nose testing. There is good facility in the hands. No other abnormal involuntary movements are noted. Motor strength is 5/5 diffusely in the arms bilaterally including deltoids, biceps, triceps, brachioradialis, wrist flexors and extensors, atmospheric chemist, and intrinsic hand muscles. Motor strength is 5/5 diffusely in the legs bilaterally including hip flexors, quadriceps, hamstrings, gastrocnemius, tibialis anterior, tibialis posterior, and Peroneii muscles. Toe extensors are normal and there is good bulk in the extensor digitorum brevis muscles bilaterally. The limbs have good tone without rigidity or spasticity. There is no atrophy noted in the muscles. Muscle bulk is normal, there is no tenderness to palpation, no myotonia to percussion, and no fasciculations seen. Sensory examination is intact to touch and pin throughout all 4 limbs diffusely. Vibratory and position sense testing is normal bilaterally as well. There is normal sensation to temperature. Reflexes are 1/4 in the biceps, triceps, brachioradialis, quadriceps, and Achilles tendons bilaterally. There is no clonus bilaterally. Toes are downgoing with plantar stimulation bilaterally. Peripheral pulses are present and of normal quality distally in all 4 limbs. There is no peripheral edema noted in the limbs. Results & Data Vital Signs (Past 12 Hours) Vital Signs Temp Pulse Pulse Resp BP BP Pulse Ox 01/27/20 08:00 36.9 C 80 22 119/74 94 01/27/20 07:11 36.4 C L 72 20 114/76 94 01/27/20 05:20 36.3 C L 71 16 120/43 L 96 PG Care Time/CCT Total # of Minutes Spent Total Time Spent with Patient: Total time spent is greater than 50% in coordination of care (as documented) at patient's floor/unit and/or counseling patient: Coding Level of Care Code 56159 OBS Care - Level 3 Diagnoses AMS (altered mental status) R41.82 Altered mental status type: unspecified Seizure R56.9 Pituitary adenoma D35.2 Insomnia G47.00 Insomnia type: unspecified Time Spent (min) 60 (1) AMS (altered mental status) Altered mental status type: unspecified Qualified Code(s): R41.82 - Altered mental status, unspecified (2) Insomnia Insomnia type: unspecified Qualified Code(s): G47.00 - Insomnia, unspecified
--- NOTE | 2020-01-27 13:10 | Psychiatric Consultation ---
Date of Consultation January 27, 2020 Impression / Recommendations Impression Dr. Halina Becerra was directly involved in review and discussion of the patient's case and participated in medical decision making regarding treatment recommendations. GENERAL RECOMMENDATIONS: 01/26 - Consistent with psychiatric consultation from 01/18/2020, low suspicion that AMS is related to a primary psychiatric disorder, as patient has no psychiatric history or evidence of a primary mood or thought disorder. It remains most likely that his AMS is multifactorial and best explained by a combination of substance abuse, age, delirium, other medical comorbidities, and possible underlying dementia. - As he does not have a primary psychiatric condition, his poor judgement and erratic behaviors alone are insufficient for involuntary psychiatric commitment. It may be worth considering a anticonvulsant medication that may offer more benefit for his behavioral control such as valproic acid; however, as it would not be utilized to treat a primary psychiatric condition, will defer to neurology or primary team to consider this further. - No indication for inpatient psychiatric hospitalization. Pt denies SI/HI, hallucinations, and other signs of acute psychosis related to an underlying psychiatric condition. - At time of this assessment, it appears the patient does not have the capacity to sign out AMA as he was not able to appreciate, or even clearly verbalize, the reason for his hospital admission, treatment recommendations, or the concerns related to him being discharged prior to medical clearance. Capacity is time and situation specific and requires ongoing evaluation regarding patient's ability to recall/understanding information that has been discussed including treatment recommendations, alternatives, appreciation of the risks and benefits of treatment and potential outcomes of treatment refusal. Inability to demonstrate reasonable ability for any of these steps is grounds to determine the patient does not have capacity to make that specific medical decision at the specific time of that assessment (in this situation, timing of discharge). See additional capacity information below. In this case, decisions should be deferred to the patient's POA if he remains unable to demonstrate informed consent/treatment refusal for recommended treatment. - Of note, this evaluation does not relate to global competency, as this requires comprehensive outpatient neuropsychological assessments and related testing, and is a legal determination. A competency evaluation, if felt medical necessary, could be arranged between the patient's POA and the Office of A[facility]. - It would be worth considering the benefit of a multidisciplinary meeting with primary team, brother (POA) and the Office of A[facility] for treatment and discharge planning. Capacity Recommendations: - As a reminder, any physician can make a determination regarding capacity to make a specific treatment decision at a specific point in time. Capacity for appropriate medical decision-making can vary based on patient's present state, but also on the weight of the specific decision. In order for a patient to have capacity to make a specific treatment decision, they must meet the four following criteria: ability to recall/understand information related to the decision being made, appreciate their condition as well as the consequences of their decision, demonstrate ability to rationally process information being provided, and clearly communicate a choice. - Recommend that discussions regarding the questioned treatment decision be clearly documented; including recommendations by provider, risks and benefits associated with the decision, patient's verbalized choice, and initial thoughts regarding patient's perceived understanding of the conversation. We would also be happy to coordinate our consultation visits to occur at time of these conversation if necessary, in order to best facilitate a clear understanding of patient's ongoing capacity. Delirium Precautions: Fequent reorientation to person, place, time, event, and intervention to be performed. Ensure patient has corrective lenses and assistive hearing devices if needed. Permit use of familiar comfort items when appropriate as well. Keep patient awake and active during the day, with light on in room. Conversely, keep room dark and quiet at night to encourage sleep, and maintenance of regular circadian rhythms. Use of prn medications should be limited to behavioral concerns that threaten the safety of the patient or staff, in order to prevent worsening of confusion and excessive sedation, and due to the risks associated with antipsychotic use in the elderly. Risk Factors Assessment Do You Have Access To A Gun?: No Psych History Identifying Data 75-year-old male admitted medically on 01/26/2020 after presenting to the ED with altered mental status. This is patient's third or fourth admission in the last several weeks for reported altered mental status and paranoia. Each time, patient has been brought to the emergency room by his close friend/neighbor. Psychiatric consultation is requested this hospitalization for altered mental status and concerns for Korsakoff's encephalopathy. Patient was last seen on our consult service on 01/18/2020 for similar concerns. Chief Complaint "I am not what you would consider me to be. Do you know that? I am not what you would consider a patient." History of Present Illness Tyler Alcala is a 75-year-old male Admitted medically on 01/26/2020 after presenting to the ED via his neighbor/friend for reports of altered mental status. Patient has had at least 4 hospitalizations for this concern over the past few weeks. PMH includes alcohol abuse, GERD, atrial fibrillation, history of seizure, ischemic cardiomyopathy with ICD placement, CAD, celiac disease, CHF, chronic respiratory failure, and history of a pituitary adenoma since removed. Psychiatric consultation was completed on 01/18/2020, during the patient's most recent hospitalization. We are consulted again due to reports of altered mental status, hallucinations, and concern for Korsakoff's enceph alopathy. Patient has been a code joe early this morning, as he was reportedly demanding to leave. It was reported that while psychiatric nurse liaison were managing the patient, a 302 warrant was pursued by primary team. Patient is superficially cooperative with this providers evaluation. He is found to be sitting in a bedside chair, with numerous papers and drawings scattered on top of his bed. Patient is being visited by his neighbor, Harini, of the neighbor who initially brought him to the ED. Patient does provide verbal consent to allow Harini to remain in the room during our conversation. Patient begins our conversation by informing this provider that he does not consider himself "a patient" as he believes that he was discharged from the hospital when he was transferred to another room early this morning. Patient attempts to update this provider on how he came to be in the hospital, though his reports are difficult to follow. Patient seems to indicate that his had an agreement with his neighbor/friend, Williams, that he would come to the ED for evaluation, under the pretense he would not be admitted - or at least not kept longer than one night. Pt states that under these conditions, he was agreeable to coming to the emergency room, though he claims he was never told that he was being admitted to the hospital. Patient continues to verbalize numerous frustra tions from his admission process, claiming that he was planning to take all of these concerns "up the ladder of administration, I know people on the top." Included in these list of concerns are patient's belief that he was "discharged from the emergency room for an hour", when in reality it was reported the patient had been refusing laboratory testing necessary to diagnose and treat his presenting symptoms. Patient claims that he was also told he was not permitted to speak to staff in the lobby of the second floor, but instead was encouraged to "be life-flighted, in a helicopter, to the 4th floor just so we could talk. Now doesn't that sound crazy to you?" Patient also complains that the patient phones in the hospital are not smart phones, and are therefore difficult to use. Patient claims that if he had the money he would, himself, donate to replace all of the patient phones with "Androids." Patient also states that he had numerous questions for dietary staff, stating he quizzed one of the employees regarding the potatoes presented to him for lunch. Patient states he got the name of the supplier, and is planning "with one phone call" to determine where the potatoes originated from. Despite feeling pleased with himself for his ability to recall these events, the patient continued to be unable to answer this provider's question regarding the reason for his hospitalization despite being asked at least 6 times. This provider continued to inquire of the patient the cause for his neighbors's concern and patient's understanding of the reason he was admitted. He was [facility] skilled at explaining to this provider how he came to the hospital and details about the process, but took considerable time before being able to state only "my neighbor and I disagree able whether or not I'm confused." Patient is unable to offer a response as to why he was hospitalized from the emergency room, or why discharge at this time is not being recommended. Even when offered the explanation to these questions, it appears patient is unable to appreciate the concerns related to this condition or the risks associated with returning home prior to appropriate medical clearance. Patient continues to deny psychiatric history, stating he has been on antidepressant medications in the past but only to treat insomnia. Patient denies depression, anxiety, bipolar disorder, and history of hallucinations. The patient does provide a somewhat confusing story, seemingly indicating that about 2 weeks ago he was sitting in his living room with Pablo Marrero from [employer], but the details of this account were a bit unclear. Patient denies any mood related concerns at present, and is denying auditory or visual hallucinations at this time. Patient was informed about concerns relating to him returning home, though as he frequently interrupted this provider it is unclear to what extent he was able to internalize these concerns. Past Psychiatric History Previous Psych History: Patient and associated supports of consistently denied any previous history of psychiatric diagnoses. Patient has had numerous psychotropic medication trials with the intent to treat insomnia. These medications include trazodone, mirtazapine, zolpidem, among possible others. Patient denies history of outpatient psychiatric treatment or inpatient hospitalizations. He denies a history of suicide attempts. Do You Have Access To A Gun?: No History of Previous Suicide Attempt: No Allergies Allergy/AdvReac Type Severity Reaction Status Date / Time amoxicillin Allergy Mild RASH/ITCHIN Verified 01/26/20 16:47 G lactose AdvReac Intermediate GI SYMPTOMS Verified 01/26/20 16:47 benzalkonium chloride AdvReac Mild ITCHING/SWE Verified 01/26/20 16:47 LLING/RASH gluten AdvReac Unknown gluten Verified 01/26/20 16:47 intolerant per EGD Home Medications Home Medications Medication Instructions Recorded Confirmed Type atorvastatin 80 mg PO QPM 11/13/18 01/26/20 History clopidogrel [Plavix] 75 mg PO QAM 11/13/18 01/26/20 History folic acid 1 mg PO QAM 11/13/18 01/26/20 History omeprazole 40 mg PO BID 11/13/18 01/26/20 History nitroglycerin 0.4 mg sublingual 0.4 mg SL DIRECTED PRN 08/29/19 01/26/20 History tablet Trelegy Ellipta 1 inh INHALATION HS 09/22/19 01/26/20 History isosorbide mononitrate 60 mg PO QAM 09/22/19 01/26/20 History apixaban 5 mg tablet 5 mg PO BID 12/30/19 01/26/20 History furosemide 40 mg tablet 60 mg PO BID tab 12/30/19 01/26/20 History sotalol 80 mg tablet 80 mg PO BID 12/30/19 01/26/20 History losartan 25 mg PO HS 01/10/20 01/26/20 History testosterone [AndroGel] 2 pump TRANSDERMAL QAM 01/10/20 01/26/20 History spironolactone 25 mg PO QAM 01/11/20 01/26/20 History thiamine HCl (vitamin B1) [Vitamin 100 mg PO QAM #30 tab 01/11/20 01/26/20 Rx B-1] metoprolol succinate 25 mg PO HS 30 Days #30 tab 01/18/20 01/26/20 Rx albuterol sulfate 90 mcg INH Q6H PRN 01/26/20 01/26/20 History cholecalciferol (vitamin D3) 2,000 unit PO DAILY 01/26/20 01/26/20 History [Vitamin D3] levetiracetam 500 mg PO BID 01/26/20 01/26/20 History trazodone 50 mg PO HS 01/26/20 01/26/20 History Family History Patient denies known family history of mental health conditions. Substance Abuse History History of alcohol abuse -previously reported patient drinks "a few shots a day." Unclear at this time what patient's recent alcohol use has been, though it is reported he claims he quit consuming alcohol 2 weeks ago. 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 Newberry Ischemic cardiomyopathy Ischemic colitis Migraine Myocardial Infarction most recent 2013, adjust med and icd inserted Non-ST elevation SC (NSTEMI) (Inactive) PAD (peripheral artery disease) Pituitary adenoma removal of adenoma from pituitary 2015 Thrombocytopenia Unstable angina (Inactive) Ventricular tachycardia Surgical History H/O hand surgery Right hand tendon repair History of abdominal aortic aneurysm (AAA) repair 2006 History of cardiac defibrillator placement May 2014 History of pituitary surgery August 2016 History of total hip arthroplasty right and left Hx of vehpp-qzjci-gkisrwv bypass right and left leg Family History Mother , at age 46 Breast cancer Other Cancer Denies family history of Ovarian cancer Prostate cancer Myocardial infarction Colorectal cancer Social History Preferred Language: Kazakh Communication Ability: Effective Visual Impairment: No Limitations Hearing Ability: Normal Top Distribution Executive Required: No Beliefs That Will Affect Care: None marital status: marital status details: no children Current Living Situation: Alone current occupational status: retired Other Information That Helps Us Care for You: No Feels Safe at Home: Yes Safety Concerns: Feels Safe At This Time Smoking Status: Never smoker Age Started Using Tobacco: 19 ; Age Quit Using Tobacco: 61 ; packs per day: 1.5 ; Cigarettes Per Day: 20-40 ; Do You Dip or Chew Tobacco: No ; Number of Years Since Quit: 13 ; Second Hand Exposure: No ; Tobacco Cessation Education Requested by Patient: No Hx Alcohol Use: Yes Alcohol type: hard liquor Alcohol Intake Frequency: Daily Alcohol Intake Frequency Comment: 2-3 bourbons daily Hx Substance Use: No Childhood Exposure to Second-Hand Smoke: No Dental Care, Regularly: Yes Physical Activity Frequency: 3-4 Times per Week Seatbelt Use: always Sunscreen Use: Yes Physical Exam Psychiatric: Orientation: alert, oriented x 3 and + guarded (only superficially cooperative ) Apperance: appropriately dressed, appropriately groomed and appeared stated age male of healthy-appearing weight, seated in bedside chair with numerous papers and drawings surrounding him. Pt is appropriately dressed in a long-sleeve t-shirt and sweatpants. He is appropriately groomed and hair/clothing appearing clean. Eye Contact: good eye contact Motor Behavior: steady gait and station (though primarily observed while sitting in chair) and no abnormal motor movements Speech: + pressured speech and normal rate/rhythm/volume of speech (irritable tone at times) Affect: + irritable affect Mood: + irritable mood ("I want to go home, but your staff won't let me") Thought Process: + tangential thought process (and disorganized at times) and + perseveration; + thought process not clear or coherent Thought Content: + preoccupation (with discharge); no delusions and no hopelessness no clear delusional thought content verbalized, though also not meeting criteria to have capacity to make the decision to leave the hospital AMA Suicidal Thoughts: denies suicidal thoughts Homicidal Thoughts: denies homicidal thoughts Hallucinations: no auditory hallucinations and no visual hallucinations Cognition: language g rossly intact; + attention not intact Insight: + impaired insight Judgement: + impaired judgement Vital Signs (Past 24 Hours): Last Vital Signs Temp 36.7 C 01/27/20 11:34 Pulse 74 01/27/20 11:34 Resp 20 01/27/20 11:34 BP 115/65 01/27/20 11:34 Pulse Ox 95 01/27/20 11:34 Review of Systems Constitutional: denied Cardiovascular: denied Respiratory: denied Gastrointestinal: denied Neurological: denied Psychiatric: denies symptoms other than stated above Total of at least 10 systems reviewed, pertinent positives as above and in HPI. Results & Data (PSY) Medications Administered Amoxicillin/Clavulanate Potassium (Augmentin 875mg) 1 tab PO BIDM [facility] Stop: 02/03/20 07:59 Last Admin: 01/27/20 10:40 Dose: Not Given Documented by: [id number] Apixaban (Eliquis) 5 mg PO BID [facility] Stop: 02/25/20 21:17 Last Admin: 01/27/20 10:40 Dose: Not Given Documented by: [id number] Admin: 01/26/20 22:28 Dose: 5 mg Documented by: [id number] Atorvastatin Calcium (Lipitor) 80 mg PO QPM [facility] Stop: 02/25/20 21:17 Last Admin: 01/26/20 22:29 Dose: 80 mg Documented by: [id number] Clopidogrel Bisulfate (Plavix) 75 mg PO QAM [facility] Stop: 02/26/20 08:59 Last Admin: 01/27/20 10:41 Dose: Not Given Documented by: [id number] Fluticasone Furoate (Arnuity Ellipta 100mcg) 1 puffs INH HS [facility] Stop: 02/25/20 21:59 Last Admin: 01/26/20 22:38 Dose: Not Given Documented by: [id number] Folic Acid (Folvite) 1 mg PO QAM [facility] Stop: 02/26/20 08:59 Last Admin: 01/27/20 10:41 Dose: Not Given Documented by: [id number] Furosemide (Lasix) 60 mg PO BID [facility] Stop: 02/25/20 21:17 Last Admin: 01/27/20 10:41 Dose: Not Given Documented by: [id number] Admin: 01/26/20 22:28 Dose: 60 mg Documented by: [id number] Isosorbide Mononitrate (Imdur Extended Rel) 60 [facility] [place] Stop: 02/26/20 08:59 Last Admin: 01/27/20 10:41 Dose: Not Given Documented by: [id number] Levetiracetam (Keppra) 500 mg PO BID [facility] Stop: 02/25/20 21:17 Last Admin: 01/27/20 10:41 Dose: Not Given Documented by: [id number] Admin: 01/26/20 22:30 Dose: 500 mg Documented by: [id number] Losartan Potassium (Cozaar) 25 mg PO [facility] Stop: 02/25/20 21:17 Last Admin: 01/26/20 22:31 Dose: 25 mg Documented by: [id number] Metoprolol Succinate (Toprol Xl) 25 mg PO [facility] Stop: 02/25/20 21:17 Last Admin: 01/26/20 22:30 Dose: 25 mg Documented by: [id number] Miscellaneous (Order Awaiting Action) 1 ea N/A QS [facility] Stop: 02/26/20 00:00 Last Admin: 01/27/20 10:40 Dose: Not Given Documented by: [id number] Admin: 01/26/20 23:01 Dose: Not Given Documented by: [id number] Pantoprazole Sodium (Protonix) 40 mg PO BID [facility] Stop: 02/25/20 21:59 Last Admin: 01/27/20 10:41 Dose: Not Given Documented by: [id number] Admin: 01/26/20 22:29 Dose: 40 mg Documented by: [id number] Sotalol HCl (Betapace) 80 mg PO BID [facility] Stop: 02/25/20 21:59 Last Admin: 01/27/20 10:40 Dose: Not Given Documented by: [id number] Admin: 01/26/20 22:30 Dose: 80 mg Documented by: [id number] Spironolactone (Aldactone) 25 mg PO QA [facility] Stop: 02/26/20 08:59 Last Admin: 01/27/20 10:40 Dose: Not Given Documented by: [id number] Thiamine HCl (Vitamin B-1) 100 mg PO DAILY [facility] Stop: 02/25/20 21:24 Last Admin: 01/27/20 10:41 Dose: Not Given Documented by: [id number] Admin: 01/26/20 22:13 Dose: 100 mg Documented by: [id number] Trazodone HCl (Desyrel) 50 mg PO [facility] Stop: 02/25/20 21:17 Last Admin: 01/26/20 22:36 Dose: 50 mg Documented by: [id number] Umeclidinium/Vilanterol (Anoro Ellipta 62.5/25 Mcg Inh) 1 puffs INH HS [facility] Stop: 02/25/20 21:59 Last Admin: 01/26/20 22:37 Dose: Not Given Documented by: [id number] Vitamin D (Vitamin D3) 2,000 units PO DAILY [facility] Stop: 02/26/20 08:59 Last Admin: 01/27/20 10:41 Dose: Not Given Documented by: [id number] Coding Level of Care Code 51896 [facility] Intl Hosp Care Lvl 3
[2020-01-27] MEDS ORDERED: AMOXICILLIN/CLAVULANATE 875 MG TAB PO ONE (18:30)
[2020-01-27] MEDS: ATORVASTATIN 40 MG TAB PO SCH (20:59)
[2020-01-27] MEDS: FLUTICASONE FUROATE 100MCG 14 PUFFS/INHALER INH SCH (20:59)
[2020-01-27] MEDS: UMECLIDINIUM/VILANTEROL 62.5/25MCG 7 PUFFS/INHALER INH SCH (20:59)
[2020-01-27] MEDS: lamoTRIgine 25 MG TAB PO SCH (21:05)
[2020-01-27] MEDS: TRAZODONE HCL 50 MG TAB PO SCH (21:05)
[2020-01-27] MEDS: LOSARTAN POTASSIUM 25 MG TAB PO SCH (21:05)
[2020-01-27] MEDS: METOPROLOL SUCC 25MG EXT REL TAB PO SCH (21:06)
[2020-01-27] MEDS: THIAMINE HCL 500 MG in SODIUM CHLORIDE 0.9% 50 ML IV SCH (21:06)
[2020-01-27] MEDS ORDERED: Nursing to Pharmacy Communication ONE (21:37)
[2020-01-27] MEDS ORDERED: METOPROLOL TARTRATE 1 MG/ML VIAL IV ONE (21:39)
[2020-01-27] MEDS ORDERED: LORazepam 2 MG/4 ML VIAL ONE (21:42)
[2020-01-27] MEDS: OLANZapine 10 MG/2.1 ML SDV IM PRN (22:25)
--- NOTE | 2020-01-28 01:38 | Communication Note ---
Date of Service: January 28, 2020 Ligia anderson called this evening as the patient had what appeared to be a seizure-like event and then became combative with staff. I had previously placed a 302 on this patient this morning out of fear he was a danger to himself and others around him. He has a longstanding history of alcohol abuse and is fortunately in the terminal stages of it with a diagnosis of Warnicke's versus Korsakoff's. The patient was initially stabilized and given 1gm Keppra, there were no signs or symptoms of soliloquy from his seizure, blood sugars obtained and within normal limits. Stat labs were ordered however the patient continued to refuse them. He continued to get increasingly combative agitated and aggressive with staff. He was not listening to reason, I personally spent approximately 20 minutes in the room with the patient attempting to get him to be reasonable. Throughout our conversation he kept on requesting the number of the operator automated process at [facility] stating that was his best friend and that he would be contacting him. He is was demanding to speak to all of these people and threatening to change the rules and policies the hospital. Given the fact that he had a seizure, will we were unable to keep him in bed, he was becoming increasingly combative and aggressive with staff, and thorough request by his family who was present and power of banking attorney who is on the phone the decision was made to chemically sedate the patient out of fear that he was a danger to himself and others. He was also stating he does not care if he dies, and wishes to there was a question of whether or not this was suicidal ideation or not. Furthermore he was refusing necessary labs or medication administration, patient given IM dose of Zyprexa 5 mg x 1 with some improvement although he was still a bit hostile. I came back to check on the patient approximately 1:30 AM and the patient was still agitated, refusing lab draws, refusing medications. Given the fact that he is a set up to go into A. fib with RVR due to refusing medications, we have no accurate laboratory values, and is increasing combativeness another dose of IM Zyprexa 5 mg was given. The intention is to draw labs while the patient is sedated. Resident Activity Tracking Resident Involvement: Resident Care Provided Care Provided: Adult [facility]
[2020-01-28] MEDS: OLANZapine 10 MG/2.1 ML SDV IM PRN (03:36)
[2020-01-28 06:00] LABS: Albumin Level 2.8 gm/dl (3.4-5.0); BUN Creatinine Ratio 17.4 (10-20); Calcium 8.8 mg/dl (8.5-10.1); Creatinine Clr Calc Pharmacy 62.9 ml/min; Est GFR (African American) 86.6; Est GFR (Non-African American) 74.7; Magnesium 1.9 mg/dl (1.8-2.4); Potassium 3.5 mmol/L (3.5-5.1)
[2020-01-28 06:04] LABS: Albumin Globulin Ratio 0.8 (0.9-2); Bilirubin,Total 0.7 mg/dl (0.2-1); Globulin 3.5 gm/dl (2.5-4.0); INR 1.5 (0.9-1.1); Partial Thromboplastin Time 28.3 Seconds (21.0-31.0); Phosphorus 3.8 mg/dl (2.5-4.9); Prothrombin Time 14.5 Seconds (9.0-12.0); Total Protein 6.3 gm/dl (6.4-8.2)
[2020-01-28] MEDS: AMOXICILLIN/CLAVULANATE 875 MG TAB PO SCH ×2 (09:06→15:53)
[2020-01-28] MEDS: CHOLECALCIFEROL 1,000 UNITS 25 MCG TAB PO SCH (09:08)
[2020-01-28] MEDS: lamoTRIgine 25 MG TAB PO SCH (09:09)
[2020-01-28] MEDS: FOLIC ACID 1 MG TAB PO SCH (09:09)
[2020-01-28] MEDS: CLOPIDOGREL BISULFATE 75 MG TAB PO SCH (09:10)
[2020-01-28] MEDS: PANTOprazole 40 MG TAB PO SCH ×2 (09:10→21:04)
[2020-01-28] MEDS: FUROSEMIDE 20 MG TAB PO SCH (09:10)
[2020-01-28] MEDS: ISOSORBIDE MONO EXTENDED REL 60 MG TABCR PO SCH (09:10)
[2020-01-28] MEDS: SPIRONOLACTONE 25 MG TAB PO SCH (09:11)
[2020-01-28] MEDS: SOTALOL HCL 80 MG TAB PO SCH ×2 (09:11→21:05)
[2020-01-28] MEDS: APIXABAN 5 MG TABLET PO SCH ×2 (09:11→21:04)
[2020-01-28] MEDS: THIAMINE HCL 500 MG in SODIUM CHLORIDE 0.9% 50 ML IV SCH ×3 (09:12→17:45)
--- NOTE | 2020-01-28 09:21 | Neurology Progress Note ---
Date of Service January 28, 2020 Assessment & Plan (1) AMS (altered mental status): (2) Seizure: (3) Pituitary adenoma: (4) Insomnia: Very difficult case from a neurologic standpoint: He has presented (3 or 4 times now in the last several weeks) with confusion, altered mental status, paranoia or inability to make good decisions at home. Friends or family are the ones who bring him in because they feel he cannot function well at home on his own. He has access to benzodiazepines and other medications as well as alcohol but it is unknown how much he does or does not take of these medications and how compliant he is with the medications he is supposed to take. In mid December he had a witnessed generalized tonic-clonic seizure once in the ER. He has been on levetiracetam 500 mg twice daily since although I am not certain he was compliant. There was a possible additional seizure over 2 last evening these were not well described in I cannot be certain that they were actual seizures. This morning he has some paranoia and agitation and strikingly little insight or memory for any events of significant in the last 24 hours. MRI of the brain with and without contrast, recently, was unremarkable, as have laboratory studies and other testing. An LP was mentioned as a possibility to rule out underlying inflammation but the patient refused that last admission. He likely has an underlying dementia (alcoholic or otherwise) with fluctuation in cognition due to medication or substance abuse. Apparently has not been using alcohol and he does not have any signs of alcohol withdrawal syndrome currently. Prolonged Benzodiazepine withdrawal entirely be excluded. Recommendations: 1. It is clear that every time the patient is sent home he is just brought right back to the hospital by family or friends for not functioning. Patient self denies any problems and wants to just go home. This is a significant social service problem and needs to be solved. My opinion is this patient is not safe to go home alone 2. An LP could be performed under fluoroscopy but I am not certain that it would add anything to the case and I am not certain the patient would agree to it anyway. Certainly, I have no pressing reason to order an LP today. In addition I see no reason to order a repeat MRI of the brain. Should he continue to have seizures we could repeat an EEG. 3. Avoid all benzodiazepines and alcohol. 4. Initiate IV Depakote 1 gram loading dose then followed by IV 250 milligrams q.6 hours. When able to take p.o. he could take Depakote ER 500 milligrams twice daily and we could check a trough level in a couple of weeks (all of this assumes that he would be compliant). 5. Discontinue levetiracetam and lamotrigine. 6. He may benefit from formal neuropsychological testing as an outpatient, if he agrees to this. Overall, I spent a total of 65 minutes with this case including review of records, direct evaluation the patient at bedside, and discussion the case with the patient and RN at bedside, Dr. Becerra, and Dr. Cohen including differential diagnosis and treatment options. Subjective Patient currently denies any pain or headache. Apparently, he was extremely talkative and doing a lot of walking and pacing throughout most of yesterday. By 184 nursing noted that he was somewhat dizzy, still pacing, and had episode of facial blankness and paleness. It was noted at 2099 that he was refusing medicines. Around 2229 had a seizure (nursing note does not describe this at all) and 4 many hours thereafter he was very combative and agitated refusing medication. He was given Zyprexa IM. By 399, however he was back to sleep and had several hours of sleep. Patient has no recollection of any events of yesterday or overnight, specifically. He did remember that the shot hurt. This morning he started out fairly calm, but as my discussion with him when on, he was getting a little more agitated picking and pulling at his covers and clothes, moving more and becoming irritable. He is concerned about taking new medication without knowing about them or what they may due to his other medication. He does not remember being on Keppra, which she has been on for several weeks now. Blood pressure is 135/68. Chemistry profile this morning was unremarkable. Prolactin level was 8.2. He has no history of hepatic disease. Physical Exam 2 Physical Exam: He started out somewhat sleepy but have become very awake as the interview when on. His short-term memory is poor and had no recall of events of yesterday or today. His insight is poor and he has little idea what is going on with him medically or why he is in the hospital. He was starting to get little bit distressed: Paranoid as the conversation when on as well particularly in regards to his medication He does not have dysarthria and he has no obvious aphasia. Extraocular eye muscles are intact without nystagmus. He is moving his limbs symmetrically. He has no abnormal involuntary movements but he does have increased psychomotor agitation particularly towards the end of the examination. Results & Data Vital Signs (Past 12 Hours) Vital Signs Temp Pulse Pulse Resp BP Pulse Ox 01/28/20 03:00 36.5 C 83 16 135/68 93 01/27/20 23:45 89 01/27/20 23:02 36.4 C L 87 20 128/86 92 PG Care Time/CCT Total # of Minutes Spent Total Time Spent with Patient: Total time spent is greater than 50% in coordination of care (as documented) at patient's floor/unit and/or counseling patient: Coding Level of Care Code 14364 Subseq Hosp Care Lvl 3 Diagnoses AMS (altered mental status) R41.82 Altered mental status type: unspecified Seizure R56.9 Pituitary adenoma D35.2 Insomnia G47.00 Insomnia type: unspecified Time Spent (min) 65 Comment Add [id number] to the [id number] (1) AMS (altered mental status) Altered mental status type: unspecified Qualified Code(s): R41.82 - Altered mental status, unspecified (2) Insomnia Insomnia type: unspecified Qualified Code(s): G47.00 - Insomnia, unspecified
[2020-01-28] MEDS ORDERED: VALPROATE SOD 1,000 MG in DEXTROSE 5% 100 ML IV STA (10:08)
--- NOTE | 2020-01-28 10:23 | Cardiology Consultation ---
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: (3) Diana: (4) AMS (altered mental status): (5) Hallucinations, visual: (6) Polypharmacy: (7) Elevated troponin: (8) Alcohol abuse: (9) PAD (peripheral artery disease): (10) CAD (coronary artery disease), [place] coronary artery: (11) Chronic systolic CHF (congestive heart failure): (12) Pituitary adenoma: (13) ICD (implantable cardioverter-defibrillator) in place: (14) Atrial fibrillation: (15) Ischemic cardiomyopathy: This patient has a long history of ischemic heart disease but I believe he has been admitted with altered mental status due to complications from alcohol abuse and mental health issues. He has chronic type II elevation of his cardiac troponins and his EKG is essentially unchanged. An echocardiogram has been ordered which I will review however, I do not believe any additional cardiac testing is indicated at this time. I believe his ischemic heart disease is stable and if necessary he can be transferred off the telemetry to the mental health unit. History of Present Illness Attending Physician: Harinder Cohen MD History of Present Illness This is a 75-year-old male patient who is well-known to our practice with a long history of ischemic heart disease as outlined below. He was admitted with alte red mental status. He has a history of alcohol dependence and polypharmacy abuse. The patient has been followed by psychiatry. Last evening the patient had seizure activity and is being followed by neurology. He has no ongoing cardiac complaints. His cardiac troponins were borderline elevated on admission and we were asked to see the patient. In reviewing his chart it appears that he has chronic type II elevation of his cardiac markers. His EKG is unchanged from previous and revealing his old inferior wall myocardial infarction. He has no current cardiac complaints. Past medical history: 1. Atherosclerotic coronary disease, status post prior inferior myocardial infarction and PTCA of the right coronary artery in 1995. 2. [id number]-vd-[id number] cardiac arrest in May of 2014 treated with bystander CPR and early defibrillation. 3. Status post pacer defibrillator implantation in May of 2014. 4. Severe multivessel coronary disease with poor surgical and interventional targets in May of 2014 with diffusely diseased right coronary artery and occluded left anterior descending. 5. Ischemic cardiomyopathy, EF 35-39% 5. Stable class 2 angina pectoris. 6. Hypertension. 7. Hyperlipidemia. 8. 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 9. Status post transsphenoidal resection of nonsecretory pituitary adenoma 09/20/2016, complicated by Aspergillus sinusitis. 10. History of iron-deficiency anemia. 11. Descending colon colitis , possibly ischemic September 23, 2019 12. New onset AFib flutter October 22, 2019, status post sotalol load , cardioversion November 13, 2019 Allergies Allergy/AdvReac Type Severity Reaction Status Date / Time amoxicillin Allergy Mild RASH/ITCHIN Verified 01/26/20 16:47 G lactose AdvReac Intermediate GI SYMPTOMS Verified 01/26/20 16:47 benzalkonium chloride AdvReac Mild ITCHING/SWE Verified 01/26/20 16:47 LLING/RASH gluten AdvReac Unknown gluten Verified 01/26/20 16:47 intolerant per EGD Home Medications Home Medications Medication Instructions Recorded Confirmed Type atorvastatin 80 mg PO QPM 11/13/18 01/26/20 History clopidogrel [Plavix] 75 mg PO QAM 11/13/18 01/26/20 History folic acid 1 mg PO QAM 11/13/18 01/26/20 History omeprazole 40 mg PO BID 11/13/18 01/26/20 History nitroglycerin 0.4 mg sublingual 0.4 mg SL DIRECTED PRN 08/29/19 01/26/20 History tablet Trelegy Ellipta 1 inh INHALATION HS 09/22/19 01/26/20 History isosorbide mononitrate 60 mg PO QAM 09/22/19 01/26/20 History apixaban 5 mg tablet 5 mg PO BID 12/30/19 01/26/20 History furosemide 40 mg tablet 60 mg PO BID tab 12/30/19 01/26/20 History sotalol 80 mg tablet 80 mg PO BID 12/30/19 01/26/20 History losartan 25 mg PO HS 01/10/20 01/26/20 History testosterone [AndroGel] 2 pump TRANSDERMAL QAM 01/10/20 01/26/20 History spironolactone 25 mg PO QAM 01/11/20 01/26/20 History thiamine HCl (vitamin B1) [Vitamin 100 mg PO QAM #30 tab 01/11/20 01/26/20 Rx B-1] metoprolol succinate 25 mg PO HS 30 Days #30 tab 01/18/20 01/26/20 Rx albuterol sulfate 90 mcg INH Q6H PRN 01/26/20 01/26/20 History cholecalciferol (vitamin D3) 2,000 unit PO DAILY 01/26/20 01/26/20 History [Vitamin D3] levetiracetam 500 mg PO BID 01/26/20 01/26/20 History trazodone 50 mg PO HS 01/26/20 01/26/20 History Patient History Medical History Alcohol abuse Anemia Arthritis CAD (coronary artery disease), [place] coronary artery Celiac disease Chronic respiratory failure with hypoxia Chronic systolic CHF (congestive heart failure) Diabetes Emphysema of lung GERD (gastroesophageal reflux disease) Gout Hyperlipidemia Hypertension ICD (implantable cardioverter-defibrillator) in place medtronic [address] Newberry Ischemic cardiomyopathy Ischemic colitis Migraine Myocardial Infarction most recent 2013, adjust med and icd inserted Non-ST elevation [place] (NSTEMI) (Inactive) PAD (peripheral artery disease) Pituitary adenoma removal of adenoma from pituitary 2015 Thrombocytopenia Unstable angina (Inactive) Ventricular tachycardia Surgical History H/O hand surgery Right hand tendon repair History of abdominal aortic aneurysm (AAA) repair 2006 History of cardiac defibrillator placement May 2014 History of pituitary surgery August 2016 History of total hip arthroplasty right and left Hx of zldah-nuwyh-myljzhw bypass right and left leg Family History Mother , at age 46 Breast cancer Other Cancer Denies family history of Ovarian cancer Prostate cancer Myocardial infarction Colorectal cancer Social History Preferred Language: Mexican Communication Ability: Effective Visual Impairment: No Limitations Hearing Ability: Normal Inserter Operator Required: No Beliefs That Will Affect Care: None marital status: marital status details: no children Current Living Situation: Alone current occupational status: retired Other Information That Helps Us Care for You: No Feels Safe at Home: Yes Safety Concerns: Feels Safe At This Time Smoking Status: Never smoker Age Started Using Tobacco: 19 ; Age Quit Using Tobacco: 61 ; packs per day: 1.5 ; Cigarettes Per Day: 20-40 ; Do You Dip or Chew Tobacco: No ; Number of Years Since Quit: 13 ; Second Hand Exposure: No ; Tobacco Cessation Education Requested by Patient: No Hx Alcohol Use: Yes Alcohol type: hard liquor Alcohol Intake Frequency: Daily Alcohol Intake Frequency Comment: 2-3 bourbons daily Hx Substance Use: No Childhood Exposure to Second-Hand Smoke: No Dental Care, Regularly: Yes Physical Activity Frequency: 3-4 Times per Week Seatbelt Use: always Sunscreen Use: Yes Review of Systems Review of Systems: Unobtainable due to mental health condition Physical Exam Physical Exam: General: no acute distress and stated age Head: normocephalic, no masses, lesions, tenderness or abnormalities Eyes: conjunctiva are pink and non-injected, sclera clear Neck: supple, no adenopathy, no bruits, normal jugular venous pulse, no hepatojugular reflux Chest: normal shape and normal respiratory effort Lungs: clear to auscultation and percussion Cardiac Exam: - regular rate & rhythm, no murmurs gallops or rubs - normal S1, normal S2 Pulses: 2(+) throughout Abdomen: abdomen soft, non-tender, no abnormal masses and no hepatosplenomegaly Musculoskeletal: no gait disturbance, no joint inflammation, no deforming arthritis Extremities: no edema and no cyanosis Neuro: grossly normal exam Results & Data ([facility]) Vital Signs (Past 12 Hours) Vital Signs Temp Pulse Pulse Resp BP Pulse Ox 01/28/20 09:47 72 20 129/91 94 01/28/20 03:00 36.5 C 83 16 135/68 93 01/27/20 23:45 89 01/27/20 23:02 36.4 C L 87 20 128/86 92 Laboratory Results Laboratory Results - last 24 hr 01/27/20 01/28/20 01/28/20 21:36 05:27 05:27 PT 14.5 H INR 1.5 H APTT 28.3 PTT Ratio 1.0 Sodium 140 Potassium 3.5 Chloride 108 H Carbon Dioxide 25 Anion Gap 7.0 BUN 17 Creatinine 0.99 Est Cr Clr Drug Dosing 62.9 Est GFR ( Amer) 86.6 Est GFR (Non-Af Amer) 74.7 BUN/Creatinine Ratio 17.4 Glucose 84 POC Glucose 123 H Calcium 8.8 Phosphorus 3.8 Magnesium 1.9 Total Bilirubin 0.7 AST 23 ALT 14 Alkaline Phosphatase 80 Total Protein 6.3 L D Albumin 2.8 L Globulin 3.5 Albumin/Globulin Ratio 0.8 L Whole Bld Vitamin B1 Prolactin 01/28/20 01/28/20 05:27 05:27 PT INR APTT PTT Ratio Sodium Potassium Chloride Carbon Dioxide Anion Gap BUN Creatinine Est Cr Clr Drug Dosing Est GFR ( Amer) Est GFR (Non-Af Amer) BUN/Creatinine Ratio Glucose POC Glucose Calcium Phosphorus Magnesium Total Bilirubin AST ALT Alkaline Phosphatase Total Protein Albumin Globulin Albumin/Globulin Ratio Whole Bld Vitamin B1 Pending Prolactin 8.23 Medications Administered Current Inpatient Medications Acetaminophen (Tylenol) 650 mg PO Q4H PRN PRN Reason: Pain or Fever Stop: 02/25/20 21:17 Al Hydrox/Mg Hydrox/Simethicone (Maalox) 15 ml PO Q4H PRN PRN Reason: Dyspepsia Stop: 02/25/20 21:17 Albuterol (Ventolin Hfa) 1 puffs INH Q6H PRN PRN Reason: SHORTNESS OF BREATH/WHEEZING Stop: 02/25/20 21:38 Amoxicillin/Clavulanate Potassium (Augmentin 875mg) 1 tab PO BIDM [facility]; Protocol Stop: 02/07/20 07:59 Last Admin: 01/28/20 09:06 Dose: Not Given Documented by: Apixaban (Eliquis) 5 mg PO BID [facility] Stop: 02/25/20 21:17 Last Admin: 01/28/20 09:11 Dose: 5 mg Documented by: Atorvastatin Calcium (Lipitor) 80 mg PO QPM [facility] Stop: 02/25/20 21:17 Last Admin: 01/27/20 20:59 Dose: Not Given Documented by: Clopidogrel Bisulfate (Plavix) 75 mg PO QAM [facility] Stop: 02/26/20 08:59 Last Admin: 01/28/20 09:10 Dose: 75 mg Documented by: Fluticasone Furoate (Arnuity Ellipta 100mcg) 1 puffs INH HS [facility] Stop: 02/25/20 21:59 Last Admin: 01/27/20 20:59 Dose: Not Given Documented by: Folic Acid (Folvite) 1 mg PO QAM [facility] Stop: 02/26/20 08:59 Last Admin: 01/28/20 09:09 Dose: 1 mg Documented by: Furosemide (Lasix) 60 mg PO BID [facility] Stop: 02/25/20 21:17 Last Admin: 01/28/20 09:10 Dose: 60 mg Documented by: Thiamine HCl 500 mg/ Sodium (Chloride) 55 mls @ 208 mls/hr IV TID ALEJANDRA Stop: 02/26/20 20:59 Last Admin: 01/28/20 09:12 Dose: Not Given Documented by: Valproic Acid 1,000 mg/ (Dextrose) 110 mls @ 55 mls/hr IV NOW STA Stop: 01/28/20 12:07 Valproic Acid 250 mg/ Dextrose 52.5 mls @ 55 mls/hr IV Q6H [facility] Stop: 02/27/20 15:59 Isosorbide Mononitrate (Imdur Extended Rel) 60 mg PO QAM [facility] Stop: 02/26/20 08:59 Last Admin: 01/28/20 09:10 Dose: 60 mg Documented by: Losartan Potassium (Cozaar) 25 mg PO [facility] Stop: 02/25/20 21:17 Last Admin: 01/27/20 21:05 Dose: Not Given Documented by: Magnesium Hydroxide (Milk Of Magnesia) 30 ml PO Q12H PRN PRN Reason: Constipation Stop: 02/25/20 21:17 Metoprolol Succinate (Toprol Xl) 25 mg PO [facility] Stop: 02/25/20 21:17 Last Admin: 01/27/20 21:06 Dose: Not Given Documented by: Miscellaneous (Order Awaiting Action) 1 ea N/A QS [facility] Stop: 02/26/20 00:00 Last Admin: 01/28/20 09:01 Dose: Not Given Documented by: Nitroglycerin (Nitrostat) 0.4 mg SL PRN PRN PRN Reason: Chest Pain Stop: 02/25/20 21:17 Olanzapine (Zyprexa) 2.5 mg PO Q2H PRN PRN Reason: Agitation Stop: 02/26/20 07:15 Olanzapine (Zyprexa) 5 mg IM Q4H PRN PRN Reason: Agitation Stop: 02/26/20 07:44 Last Admin: 01/28/20 03:36 Dose: 5 mg Documented by: Ondansetron HCl (Zofran) 4 mg IV Q6H PRN PRN Reason: Nausea Stop: 02/25/20 21:17 Pantoprazole Sodium (Protonix) 40 mg PO BID [facility] Stop: 02/25/20 21:59 Last Admin: 01/28/20 09:10 Dose: 40 mg Documented by: Polyethylene Glycol (Miralax Powder Packet) 17 gm PO DAILY PRN PRN Reason: Constipation Stop: 02/25/20 21:17 Sotalol HCl (Betapace) 80 mg PO BID [facility] Stop: 02/25/20 21:59 Last Admin: 01/28/20 09:11 Dose: 80 mg Documented by: Spironolactone (Aldactone) 25 mg PO QAM [facility] Stop: 02/26/20 08:59 Last Admin: 01/28/20 09:11 Dose: 25 mg Documented by: Thiamine HCl (Vitamin B-1) 100 mg PO DAILY [facility] Stop: 02/25/20 21:24 Last Admin: 01/27/20 10:41 Dose: Not Given Documented by: Trazodone HCl (Desyrel) 50 mg PO HS [facility] Stop: 02/25/20 21:17 Last Admin: 01/27/20 21:05 Dose: Not Given Documented by: Umeclidinium/Vilanterol (Anoro Ellipta 62.5/25 Mcg Inh) 1 puffs INH HS [facility] Stop: 02/25/20 21:59 Last Admin: 01/27/20 20:59 Dose: Not Given Documented by: Vitamin D (Vitamin D3) 2,000 units PO DAILY [facility] Stop: 02/26/20 08:59 Last Admin: 01/28/20 09:08 Dose: Not Given Documented by: (1) Atrial fibrillation Atrial fibrillation type: unspecified Qualified Code(s): I48.91 - Unspecified atrial fibrillation (2) CAD (coronary artery disease), [place] coronary artery Associated angina: with stable angina [place] vs. transplanted heart: [place] heart Qualified Code(s): I25.118 - Atherosclerotic heart disease of [place] coronary artery with other forms of angina pectoris (3) AMS (altered mental status) Altered mental status type: unspecified Qualified Code(s): R41.82 - Altered mental status, unspecified
[2020-01-28] MEDS ORDERED: SODIUM CHLORIDE 0.65% NA SOLN 45 ML (OCEAN) ONE (13:22)
--- NOTE | 2020-01-28 14:10 | Psychiatric Progress Note ---
Date of Service January 28, 2020 Impression / Recommendations Impression -No psychiatric history or evidence of a primary mood, anxiety, or thought disorder. Agree with neurology that AMS is multifactorial and differential includes dementia, substance abuse, age, delirium, seizures, and other medical comorbidities. Cognition impaired (visuospatial/executive, language, and memory) with 22/30 on MoCA today. -Discussed case with Dr. Vaz of neurology, and agree with switching Keppra to an antiepileptic medication that may also provide mood stabilizing benefits, such as lamotrigine or valproate. Keppra can worsen anxiety and agitation so could be contributing to his recent symptoms. -As there is not a primary psychiatric disorder driving patient's symptoms and behavior, he is not committable under [place] mental health law. I agree with Dr. Braxton, who assessed him overnight, that he lacks capacity to leave AMA, and can defer to POA for discharge decisions. -May be helpful to involve his outpatient supports/family/POA to clarify their concerns and make an alternative discharge plan with increased supports and ideally supervision. -Avoid use of controlled substances due to the risk of abuse/misuse/negative outcomes. Patient states willingness to abstain from alcohol and Ambien. -Avoid antipsychotic medication except when patient's behavior place himself or those around him at imminent risk of harm, given the risk of in elderly patients with dementia as well as the risk of arrhythmia with QTC prolongation. -Please contact us with any further questions. Interval History Chief Complaint " Let me step you back a step, every visit has been under my suggestion". Subjective Subjective Patient was seen & assessed and interval progress reviewed. He was seen by NAHUM Andersen, yesterday, and is known to me from multiple previous hospitalizations, when he was seen by our consult service. Per records, he had a seizure last night, a code purple was called, he was uncooperative with attempts to get stat labs, and was demanding to speak to someone on the switchboard clerk. He was given olanzapine 5 mg IM x 2 doses. He made comments that he wanted to and did not care if he . He then slept, and when he awoke, was pleasant and cooperative per nursing notes. He saw neurology and cardiology today, and lamotrigine was started to replace Keppra. On my assessment, he was seen with his friend, Monie who was visiting and remained in the room at the patient's request. Her , Williams, has brought the patient to the hospital on multiple occasions. The patient was pleasant and cooperative, states that he has been coming to the hospital regularly with his friends' encouragement due to problems at home, which he struggles to describe, stating he "didn't think it was a problem, but I couldn't find stuff." He describes frequently losing things, becoming confused, and forgetting what he was doing. He attributes this to "rapid changes and alterations" in his cardiac medications. He reports he stopped taking Ambien within the last 2 weeks, and has not had any alcohol in 3 weeks. He has been using trazodone for sleep and says it has been helpful, sleep has been good, he feels rested, and denies symptoms of depression, anxiety disorders, and psychosis. Per records, he did have episodes of paranoia and hallucinations during previous hospitalizations, which were acute in onset and short lived. He denies ever experiencing suicidal thoughts, homicidal thoughts, and any safety concerns. He states he understands that he cannot drink or take Ambien as they were worsening his confusion, and that he cannot drive due to his seizures. He denies any history of mental illness, and his friend who is visiting confirms that this is accurate to the best of her knowledge. He completed a MoCA, scored 22/30, missing 2 for visuospatial/executive, 2 for language, and 4 for delayed recall. He struggled with the directions for the test, frequently needed them to be repeated, and would often start the task but do it incorrectly, and say he was confused and request to start again. Physical Exam Psychiatric Orientation: alert and cooperative Oriented x6/6 Apperance: appropriately dressed and appeared stated age Casually dressed, adequately groomed, reclining on his bed in no acute distress. Calm, cooperative, and pleasant. Eye Contact: good eye contact Motor Behavior: no abnormal motor movements Mildly hyperverbal, but normal rate, volume, and tone, and not pressured. Affect: euthymic affect and mood congruent with affect "Fine." Thought Process: + circumstantial thought process (Tells somewhat rambling stories, but able to redirect.) Thought Content: reality based without delusions Suicidal Thoughts: denies suicidal thoughts Homicidal Thoughts: denies homicidal thoughts Hallucinations: no auditory hallucinations and no visual hallucinations Cognition: + recent memory not intact, + attention not intact and + language not intact Insight: + poor insight Judgement: + poor judgement Vital Signs (Past 24 Hours) Last Vital Signs Temp 36.5 C 01/28/20 03:00 Pulse 72 01/28/20 09:47 Resp 20 01/28/20 09:47 BP 129/91 01/28/20 09:47 Pulse Ox 94 01/28/20 09:47 Results & Data ([facility]) Laboratory Results Laboratory Results - last 24 hr 01/27/20 01/28/20 01/28/20 21:36 05:27 05:27 PT 14.5 H INR 1.5 H APTT 28.3 PTT Ratio 1.0 Sodium 140 Potassium 3.5 Chloride 108 H Carbon Dioxide 25 Anion Gap 7.0 BUN 17 Creatinine 0.99 Est Cr Clr Drug Dosing 62.9 Est GFR ( Amer) 86.6 Est GFR (Non-Af Amer) 74.7 BUN/Creatinine Ratio 17.4 Glucose 84 POC Glucose 123 H Calcium 8.8 Phosphorus 3.8 Magnesium 1.9 Total Bilirubin 0.7 AST 23 ALT 14 Alkaline Phosphatase 80 Total Protein 6.3 L D Albumin 2.8 L Globulin 3.5 Albumin/Globulin Ratio 0.8 L Whole Bld Vitamin B1 Prolactin 01/28/20 01/28/20 05:27 05:27 PT INR APTT PTT Ratio Sodium Potassium Chloride Carbon Dioxide Anion Gap BUN Creatinine Est Cr Clr Drug Dosing Est GFR ( Amer) Est GFR (Non-Af Amer) BUN/Creatinine Ratio Glucose POC Glucose Calcium Phosphorus Magnesium Total Bilirubin AST ALT Alkaline Phosphatase Total Protein Albumin Globulin Albumin/Globulin Ratio Whole Bld Vitamin B1 Pending Prolactin 8.23 Current Inpatient Medications Current Inpatient Medications: Current Inpatient Medications Acetaminophen (Tylenol) 650 mg PO Q4H PRN PRN Reason: Pain or Fever Stop: 02/25/20 21:17 Al Hydrox/Mg Hydrox/Simethicone (Maalox) 15 ml PO Q4H PRN PRN Reason: Dyspepsia Stop: 02/25/20 21:17 Albuterol (Ventolin Hfa) 1 puffs INH Q6H PRN PRN Reason: SHORTNESS OF BREATH/WHEEZING Stop: 02/25/20 21:38 Amoxicillin/Clavulanate Potassium (Augmentin 875mg) 1 tab PO BIDM [facility]; Protocol Stop: 02/07/20 07:59 Last Admin: 01/28/20 09:06 Dose: Not Given Documented by: Apixaban (Eliquis) 5 mg PO BID [facility] Stop: 02/25/20 21:17 Last Admin: 01/28/20 09:11 Dose: 5 mg Documented by: Atorvastatin Calcium (Lipitor) 80 mg PO QPM [facility] Stop: 02/25/20 21:17 Last Admin: 01/27/20 20:59 Dose: Not Given Documented by: Clopidogrel Bisulfate (Plavix) 75 mg PO QAJD [facility] Stop: 02/26/20 08:59 Last Admin: 01/28/20 09:10 Dose: 75 mg Documented by: Fluticasone Furoate (Arnuity Ellipta 100mcg) 1 puffs INH [facility] Stop: 02/25/20 21:59 Last Admin: 01/27/20 20:59 Dose: Not Given Documented by: Folic Acid (Folvite) 1 mg PO [facility] Stop: 02/26/20 08:59 Last Admin: 01/28/20 09:09 Dose: 1 mg Documented by: Furosemide (Lasix) 60 mg PO BID [facility] Stop: 02/25/20 21:17 Last Admin: 01/28/20 09:10 Dose: 60 mg Documented by: Thiamine HCl 500 mg/ Sodium (Chloride) 55 mls @ 208 mls/hr IV TID [facility] Stop: 02/26/20 20:59 Last Admin: 01/28/20 12:59 Dose: Not Given Documented by: Valproic Acid 250 mg/ Dextrose 52.5 mls @ 55 mls/hr IV Q6H [facility] Stop: 02/27/20 15:59 Isosorbide Mononitrate (Imdur Extended Rel) 60 mg PO QAJD [facility] Stop: 02/26/20 08:59 Last Admin: 01/28/20 09:10 Dose: 60 mg Documented by: Losartan Potassium (Cozaar) 25 mg PO [facility] Stop: 02/25/20 21:17 Last Admin: 01/27/20 21:05 Dose: Not Given Documented by: Magnesium Hydroxide (Milk Of Magnesia) 30 ml PO Q12H PRN PRN Reason: Constipation Stop: 02/25/20 21:17 Metoprolol Succinate (Toprol Xl) 25 mg PO [facility] Stop: 02/25/20 21:17 Last Admin: 01/27/20 21:06 Dose: Not Given Documented by: Miscellaneous (Order Awaiting Action) 1 ea N/A QS [facility] Stop: 02/26/20 00:00 Last Admin: 01/28/20 09:01 Dose: Not Given Documented by: Nitroglycerin (Nitrostat) 0.4 mg SL PRN PRN PRN Reason: Chest Pain Stop: 02/25/20 21:17 Olanzapine (Zyprexa) 2.5 mg PO Q2H PRN PRN Reason: Agitation Stop: 02/26/20 07:15 Olanzapine (Zyprexa) 5 mg IM Q4H PRN PRN Reason: Agitation Stop: 02/26/20 07:44 Last Admin: 01/28/20 03:36 Dose: 5 mg Documented by: Ondansetron HCl (Zofran) 4 mg IV Q6H PRN PRN Reason: Nausea Stop: 02/25/20 21:17 Pantoprazole Sodium (Protonix) 40 mg PO BID [facility] Stop: 02/25/20 21:59 Last Admin: 01/28/20 09:10 Dose: 40 mg Documented by: Polyethylene Glycol (Miralax Powder Packet) 17 gm PO DAILY PRN PRN Reason: Constipation Stop: 02/25/20 21:17 Sotalol HCl (Betapace) 80 mg PO BID [facility] Stop: 02/25/20 21:59 Last Admin: 01/28/20 09:11 Dose: 80 mg Documented by: Spironolactone (Aldactone) 25 mg PO QAM [facility] Stop: 02/26/20 08:59 Last Admin: 01/28/20 09:11 Dose: 25 mg Documented by: Thiamine HCl (Vitamin B-1) 100 mg PO DAILY [facility] Stop: 02/25/20 21:24 Last Admin: 01/27/20 10:41 Dose: Not Given Documented by: Trazodone HCl (Desyrel) 50 mg PO HS [facility] Stop: 02/25/20 21:17 Last Admin: 01/27/20 21:05 Dose: Not Given Documented by: Umeclidinium/Vilanterol (Anoro Ellipta 62.5/25 Mcg Inh) 1 puffs INH HS [facility] Stop: 02/25/20 21:59 Last Admin: 01/27/20 20:59 Dose: Not Given Documented by: Vitamin D (Vitamin D3) 2,000 units PO DAILY [facility] Stop: 02/26/20 08:59 Last Admin: 01/28/20 09:08 Dose: Not Given Documented by:
[2020-01-28] MEDS: VALPROATE SOD 250 MG in DEXTROSE 5% 50 ML IV SCH ×2 (15:54→21:03)
--- NOTE | 2020-01-28 19:57 | Hospitalist Progress Note ---
Date of Service January 28, 2020 Assessment & Plan (1) AMS (altered mental status): Appreciate neurology and psychiatry help with this complex patient. Discussed with Dr Vaz. Patient started on IV Depakote for both seizure prophylaxis and hopefully will double up as a mood stabilizer for his diana. Can switch to oral if diana is improving and patient wishes to take medications. Unclear exact etiology but most likely I suspect this is related to his alcohol use, dementia associated psychosis and possible underlying Korsakoff's. Agree with psychiatry that underlying primary psychiatric disorder such as bipolor/depression less likely. Possible he has had multiple seizures causing acute encephalopathic state given his seizure-like activity last night. Continues with main symptoms of diana but sleeping more today. Increased tiredness likely from overnight events +/- Zyprexa use. Possible paranoid delusions as patient has expressed food will kill him in a minute and paranoia about medications will kill him unless he gets them approved by Dr Newberry. No hallucinations noted while admitted but at home he has had visual hallucinations where he has been observed talking to people who are not there. Patient continues to lack capacity to make decisions regarding medications, discharge planning, meals with no insight into his medical condition. Although apparently has been eating well today so the food is no longer an issue (previouosly he had to know where exactly the food had come from down to the farm otherwise it would kill him). Discussed care with his POA brother Josemanuel over the phone who agrees with plan using Depakote and gives broad consent to continue treating as we see fit. Will continue to keep him informed daily. If patient continues to lack capacity Josemanuel will need to make decision on placement once patient is medically optimized. (2) Seizure: Seizure-like activity overnight although normal prolactin levels. IV Keppra 1g given. Discussed with Dr Vaz and patient started on depakote IV 1g loading dose with 250mg q6H until willing to take oral. ?secondary to hypoperfusion and cardiac arrhythmia. Pacemaker interrogation ordered. Cardiology consulted to determine if due to a cardiac arrhythmia. Patient taking sotalol intermittently. 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 Thiamine level taken prior to first IV dose therefore hopefully telephone claims representative but won't be back for several days. No IV thiamine 500mg TID given despite ordered - this should be given whenever patient is sleeping or willing as he cannot legally refuse as he lacks capacity and his brother as GARCIA has given permission. (4) Diana: Patient remains manic. Tangential speech. Abnormal Fixations. Agree with psychiatry that underlying primary psychiatric disorder less likely given acute nature of deterioration. IV Depakote started as above, primarily for seizure prophylaxis. (5) Paranoid delusion: Suspected based mainly on statements around the food going to kill him. Given possible delusions and prior hallucinations at home with concurrent in somnia will start a small dose of Seroquel at night to see if this helps. 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 (6) Hallucinations, visual: None noticed while admitted but reports from his long time friend of talking to people who aren't there at home when left alone. Supports diagnosis of Korsakoff's. (7) Polypharmacy: Unlikely contributory at present as suspected not to be taking his medications at home. Previous admission felt to be contributory to benzodia zepine use. (8) Unable to agree with care plan: Patient still lacks capacity to make his own medical decisions. Will continue to reassess throughout hospital stay. (9) Elevated troponin: Appreciate cardiology consult. Suspect demand-ischemia, no further workup required. (10) Alcohol abuse: Patient states that he stopped drinking alcohol 2 weeks ago. No withdrawal suspected. (11) CAD (coronary artery disease), algaaciq coronary artery: Continue home medicine apixaban 5 mg p.o. twice daily, atorvastatin 80 mg p.o. every afternoon, clopidogrel 75 mg p.o. every morning, furosemide 60 mg p.o. twice daily, isosorbide mononitrate 60 mg p.o. every morning, losartan 25 mg p.o. nightly, metoprolol 25 mg p.o. nightly, nitroglycerin 0.5 mg as directed PRN, sotalol 80 mg p.o. twice daily, spironolactone 25 mg p.o. every morning. (12) Chronic systolic CHF (congestive heart failure): Patient appears to be euvolemic at this time. Continue home medications as patient willing. (13) Atrial fibrillation: Continue sotalol for rhythm control. NSR on admission EKG. NSR when on occupational hygienist today. Continue apixaban 5 mg p.o. twice daily. (14) Pre-syncope: Suspect underlying arrhythmia during these episodes. Pacemaker interrogation pending as patient has not been on monitor during an episode. (15) DVT prophylaxis: Continue apixaban 5mg BID (noted patient intermittency taking oral medications). Could switch to lovenox but risk of increasing diana and limited benefit therefore will avoid this at present. Admission and Anticipated Discharge Date Admission Date: January 27, 2020 Ongoing admission due to acute encephalopathy with lack of patient capacity. Subjective Patient continues to not have any insight into why he is in hospital. Intermittently still refusing medication without any particularly explanation other than going off on a tangent how he needs to fly out to [place] to see Dr Newberry. Multiple episodes of presyncope yesterday one of which was witnessed by myself as the patient becomes suddenly pale, blank face, dizzy, improves within 10-15 seconds, patient awake throughout spell and able to lay himself down. One incident not witnessed by myself . Unfortunately patient was refusing to wear the occupational hygienist with these episodes therefore not captured on telemetry. He was awake and alert enough all of yesterday that we were unable to do any procedures, labs or medications against his will despite him lacking capacity without sedation. He apparently had some seizure-like activity with shaking of his limbs seen although given increased frequency in these presyncopal events prior to this - this episode may have been more of a cardiac arrhythmia hypoperfusion to his brain rather than an underlying pre-disposition to seizures. He was given Zyprexa IM twice overnight and was able to get some sleep. IV Keppra given for seizures. No recollection of events overnight. Review of Systems Review of Systems: Unobtainable due to cognitive status Physical Exam Constitutional: WD/WN, vitals as above Eyes: + anicteric sclerae; normal pupil size ENMT: external ear and nose normal, oropharynx normal Neck: trachea midline, no thyromegaly Respiratory: normal respiratory effort, lungs clear to auscultation Cardiovascular: RRR, no murmur, no edema Gastrointestinal (Abdomen): normal bowel sounds, soft, nontender, no hepatosplenomegaly Musculoskeletal: no cyanosis or clubbing, extremities motor strength 5/5 Skin: no rashes, warm and dry Psychiatric: Orientation: alert and oriented x 3 Apperance: appropriately dressed Eye Contact: good eye contact Speech: + pressured speech Affect: + irritable affect Mood: + irritable mood Thought Process: + cardona gential thought process, + looseness of associations and + confabulations; + thought process not clear or coherent Thought Content: + preoccupation, + paranoid, + compulsions and + delusions Hallucinations: no auditory hallucinations and no visual hallucinations Results & Data ([facility]) Vital Signs (Past 12 Hours) Vital Signs Temp Pulse Pulse Pulse Resp BP Pulse Ox 01/28/20 19:33 36.5 C 77 16 99/64 L 94 01/28/20 16:00 89 01/28/20 14:35 36.4 C L 67 16 101/65 94 01/28/20 09:47 72 20 129/91 94 01/28/20 08:00 89 PG Care Time/CCT Total # of Minutes Spent Total Time Spent with Patient: Total time spent is greater than 50% in coordination of care (as documented) at patient's floor/unit and/or counseling patient: Coding Level of Care Code 47730 Subseq Hosp Care Lvl 3 Diagnoses AMS (altered mental status) R41.82 Altered mental status type: unspecified Seizure R56.9 Alcoholic Korsakoff syndrome F10.96 Diana F30.9 Paranoid delusion F22 Hallucinations, visual R44.1 Polypharmacy Z79.899 Unable to agree with care plan Z91.89 Elevated troponin R79.89 Alcohol abuse F10.10 CAD (coronary artery disease), algaaciq coronary artery I25.118 [place] vs. transplanted heart: algaaciq heart Associated angina: with stable angina Chronic systolic CHF (congestive heart failure) I50.22 Atrial fibrillation I48.91 Atrial fibrillation type: unspecified Pre-syncope R55 DVT prophylaxis Z29.9 (1) AMS (altered mental status) Altered mental status type: unspecified Qualified Code(s): R41.82 - Altered mental status, unspecified (2) CAD (coronary artery disease), algaaciq coronary artery [place] vs. transplanted heart: algaaciq heart Associated angina: with stable angina Qualified Code(s): I25.118 - Atherosclerotic heart disease of algaaciq coronary artery with other forms of angina pectoris (3) Atrial fibrillation Atrial fibrillation type: unspecified Qualified Code(s): I48.91 - Unspecified atrial fibrillation
[2020-01-28] MEDS: UMECLIDINIUM/VILANTEROL 62.5/25MCG 7 PUFFS/INHALER INH SCH (20:59)
[2020-01-28] MEDS: FLUTICASONE FUROATE 100MCG 14 PUFFS/INHALER INH SCH (20:59)
[2020-01-28] MEDS ORDERED: QUETIAPINE FUMARATE 25 MG TABLET PO SCH (21:00)
[2020-01-28] MEDS: METOPROLOL SUCC 25MG EXT REL TAB PO SCH (21:03)
[2020-01-28] MEDS: LOSARTAN POTASSIUM 25 MG TAB PO SCH (21:05)
[2020-01-28] MEDS: ATORVASTATIN 40 MG TAB PO SCH (21:07)
[2020-01-28] MEDS: TRAZODONE HCL 50 MG TAB PO SCH (21:54)
[2020-01-29] MEDS: VALPROATE SOD 250 MG in DEXTROSE 5% 50 ML IV SCH ×4 (04:17→22:23)
--- NOTE | 2020-01-29 08:22 | Neurology Progress Note ---
Date of Service January 29, 2020 Assessment & Plan (1) AMS (altered mental status): (2) Seizure: (3) Pituitary adenoma: (4) Insomnia: Very difficult case from a neurologic standpoint: He has presented (3 or 4 times now in the last several weeks) with confusion, altered mental status, paranoia or inability to make good decisions at home. Friends or family are the ones who bring him in because they feel he cannot function well at home on his own. He has access to benzodiazepines and other medications as well as alcohol but it is unknown how much he does or does not take of these medications and how compliant he is with the medications he is supposed to take. In mid December he had a witnessed generalized tonic-clonic seizure once in the ER. He has been on levetiracetam 500 mg twice daily since although I am not certain he was compliant. There was a possible additional seizure or 2 in the evening of January 26, although these were not well described. I cannot be certain that they were actual seizures. Although yesterday, he had some paranoia, agitation and strikingly little insight or memory for any events in the previous 24 hours, this morning, he is quite calm. MRI of the brain with and without contrast, recently, was unremarkable, as have laboratory studies and other testing. An LP was mentioned as a possibility to rule out underlying inflammation but the patient refused that last admission. He likely has an underlying dementia (alcoholic or otherwise) with fluctuation in cognition due to medication or substance abuse. Apparently has not been using alcohol and he does not have any signs of alcohol withdrawal syndrome currently. Prolonged Benzodiazepine withdrawal cannot entirely be excluded, but he really is showing any withdrawal signs currently. He has had no seizures over the last 24 hours and is tolerating valproic acid well. Patient is on 25 mg Seroquel which probably helps his agitation. Recommendations: 1. It is clear that every time the patient is sent home he is just brought right back to the hospital by family or friends for not functioning. Patient self denies any problems and wants to just go home. This is a significant social service problem and needs to be solved. My opinion is this patient is not safe to go home alone. I think going to [facility], [facility], is reasonable. 2. An LP could be performed under fluoroscopy but I am not certain that it would add anything to the case and I am not certain the patient would agree to it anyway. Certainly, I have no pressing reason to order an LP today. In addition I see no reason to order a repeat MRI of the brain. Should he continue to have seizures we could repeat an EEG, but there is no need to order this today. 3. Avoid all benzodiazepines and alcohol. 4. Continue IV Depakote 250 milligrams q.6 hours. Check a trough Depakote level tomorrow morning. 5. When we are certain he is compliant taking p.o., switch Depakote IV to Depakote ER 500 milligrams twice daily and check a trough level in 2 weeks (all of this assumes that he would be compliant). 6. Keep off levetiracetam and lamotrigine. 7. Formal neuropsychological testing as an outpatient, if he agrees to this. 8. Increase activity as able and consider physical therapy. 9. Caution with neuroleptics as they may prolong the QT interval. Patient currently is on a very low dose of Seroquel and the benefit needs to be weighed against the risk of an already prolonged QT interval. Overall, I spent a total of 35 minutes with this case including review of records, direct evaluation the patient at bedside, and discussion the case with the patient and RN at bedside, and Dr. Cohen including differential diagnosis and treatment options. Subjective Patient was awake this morning when I came into the room. He was pleasant and cooperative. He was calm and without any agitation. He had no complaint of pain or headache. Patient felt that he slept well does not mention anything about what agitated him yesterday when visited yesterday morning He has had no further seizures over the last 24 hours. He is tolerating IV Depakote well. Nursing reports no other issues overnight Blood Pressure is 90/60 Physical Exam Physical Exam: He is awake and alert. Speech is without obvious aphasia or dysarthria. He follows one-step commands well. His mood is calm and he is cooperative. Extraocular muscles are intact without nystagmus. There is no facial droop. He is moving his limbs equally well , and there is no abnormal i nvoluntary movements noted. Results & Data Vital Signs (Past 12 Hours) Vital Signs Temp Pulse Resp BP BP Pulse Ox 01/29/20 06:58 36.5 C 69 20 99/60 L 94 01/28/20 23:12 36.4 C L 82 18 99/67 L 93 PG Care Time/CCT Total # of Minutes Spent Total Time Spent with Patient: Total time spent is greater than 50% in coordination of care (as documented) at patient's floor/unit and/or counseling patient: Coding Level of Care Code 26583 Subseq Hosp Care Lvl 3 Diagnoses AMS (altered mental status) R41.82 Altered mental status type: unspecified Seizure R56.9 Pituitary adenoma D35.2 Insomnia G47.00 Insomnia type: unspecified (1) AMS (altered mental status) Altered mental status type: unspecified Qualified Code(s): R41.82 - Altered mental status, unspecified (2) Insomnia Insomnia type: unspecified Qualified Code(s): G47.00 - Insomnia, unspecified
[2020-01-29] MEDS: THIAMINE HCL 500 MG in SODIUM CHLORIDE 0.9% 50 ML IV SCH ×3 (08:40→21:48)
[2020-01-29] MEDS: APIXABAN 5 MG TABLET PO SCH ×2 (08:43→21:45)
[2020-01-29] MEDS: AMOXICILLIN/CLAVULANATE 875 MG TAB PO SCH (08:43)
[2020-01-29] MEDS: SOTALOL HCL 80 MG TAB PO SCH ×2 (08:44→21:49)
[2020-01-29] MEDS: FUROSEMIDE 20 MG TAB PO SCH (08:44)
[2020-01-29] MEDS: FOLIC ACID 1 MG TAB PO SCH (08:45)
[2020-01-29] MEDS: PANTOprazole 40 MG TAB PO SCH ×2 (08:45→21:44)
[2020-01-29] MEDS: SPIRONOLACTONE 25 MG TAB PO SCH (08:45)
[2020-01-29] MEDS: CLOPIDOGREL BISULFATE 75 MG TAB PO SCH (08:46)
[2020-01-29] MEDS: ISOSORBIDE MONO EXTENDED REL 60 MG TABCR PO SCH (08:46)
--- NOTE | 2020-01-29 10:39 | Cardiology Progress Note ---
Date of Service January 29, 2020 Assessment & Plan (1) Paranoid delusion: (2) Alcoholic Korsakoff syndrome: (3) Wernickes encephalopathy: (4) Diana: (5) AMS (altered mental status): (6) Hallucinations, visual: (7) Polypharmacy: (8) Elevated troponin: (9) CAD (coronary artery disease), [place] coronary artery: (10) Chronic systolic CHF (congestive heart failure): (11) Seizure: (12) ICD (implantable cardioverter-defibrillator) in place: (13) Atrial fibrillation: From a cardiac standpoint the patient is currently clinically stable. No additional cardiac testing is planned at this time. He should continue his home cardiac meds with adjustments in his diuretics as needed. We will see him on an as-needed basis. 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 Newberry on February 01 which he should keep if he is discharged in time. Subjective The patient is more conversive today. He had an uneventful night. His telemetry has been stable. I reviewed his pacemaker interrogation in the had no significant arrhythmias or received no therapies from his ICD. He is receiving valproic acid per neurology for seizures. Both neurology and psychiatry notes are appreciated. Review of Systems Review of Systems: Unobtainable due to cognitive status Physical Exam Physical Exam: General: no acute distress and stated age Head: normocephalic, no masses, lesions, tenderness or abnormalities Eyes: conjunctiva are pink and non-injected, sclera clear Neck: supple, no adenopathy, no bruits, normal jugular venous pulse, no hepatojugular reflux Chest: normal shape and normal respiratory effort Lungs: clear to auscultation and percussion Cardiac Exam: - regular rate & rhythm, no murmurs gallops or rubs - normal S1, normal S2 Pulses: 2(+) throughout Abdomen: abdomen soft, non-tender, no abnormal masses and no hepatosplenomegaly Musculoskeletal: no gait disturbance, no joint inflammation, no deforming arthritis Extremities: no edema and no cyanosis Neuro: grossly normal exam Results & Data Vital Signs (Past 12 Hours) Vital Signs Temp Pulse Pulse Resp BP BP Pulse Ox 01/29/20 10:10 89 01/29/20 06:58 36.5 C 69 20 99/60 L 94 01/28/20 23:12 36.4 C L 82 18 99/67 L 93 Medications Administered Current Inpatient Medications Acetaminophen (Tylenol) 650 mg PO Q4H PRN PRN Reason: Pain or Fever Stop: 02/25/20 21:17 Al Hydrox/Mg Hydrox/Simethicone (Maalox) 15 ml PO Q4H PRN PRN Reason: Dyspepsia Stop: 02/25/20 21:17 Albuterol (Ventolin Hfa) 1 puffs INH Q6H PRN PRN Reason: SHORTNESS OF BREATH/WHEEZING Stop: 02/25/20 21:38 Amoxicillin/Clavulanate Potassium (Augmentin 875mg) 1 tab PO BIDM [facility]; Protocol Stop: 02/07/20 07:59 Last Admin: 01/29/20 08:43 Dose: 1 tab Documented by: Apixaban (Eliquis) 5 mg PO BID [facility] Stop: 02/25/20 21:17 Last Admin: 01/29/20 08:43 Dose: 5 mg Documented by: Atorvastatin Calcium (Lipitor) 80 mg PO QPM [facility] Stop: 02/25/20 21:17 Last Admin: 01/28/20 21:07 Dose: 80 mg Documented by: Clopidogrel Bisulfate (Plavix) 75 mg PO QAM [facility] Stop: 02/26/20 08:59 Last Admin: 01/29/20 08:46 Dose: 75 mg Documented by: Fluticasone Furoate (Arnuity Ellipta 100mcg) 1 puffs INH HS [facility] Stop: 02/25/20 21:59 Last Admin: 01/28/20 20:59 Dose: Not Given Documented by: Folic Acid (Folvite) 1 mg PO QAM [facility] Stop: 02/26/20 08:59 Last Admin: 01/29/20 08:45 Dose: 1 mg Documented by: Furosemide (Lasix) 60 mg PO QAM [facility] Stop: 02/28/20 08:59 Last Admin: 01/29/20 08:44 Dose: 60 mg Documented by: Thiamine HCl 500 mg/ Sodium (Chloride) 55 mls @ 208 mls/hr IV TID [facility] Stop: 02/26/20 20:59 Last Infusion: 01/29/20 09:09 Dose: Infused Documented by: Valproic Acid 250 mg/ Dextrose 52.5 mls @ 55 mls/hr IV Q6H [facility] Stop: 02/27/20 15:59 Last Infusion: 01/29/20 09:47 Dose: Infused Documented by: Isosorbide Mononitrate (Imdur Extended Rel) 60 mg PO QAM [facility] Stop: 02/26/20 08:59 Last Admin: 01/29/20 08:46 Dose: 60 mg Documented by: Losartan Potassium (Cozaar) 25 mg PO HS [facility] Stop: 02/25/20 21:17 Last Admin: 01/28/20 21:05 Dose: 25 mg Documented by: Magnesium Hydroxide (Milk Of Magnesia) 30 ml PO Q12H PRN PRN Reason: Constipation Stop: 02/25/20 21:17 Metoprolol Succinate (Toprol Xl) 25 mg PO [facility] Stop: 02/25/20 21:17 Last Admin: 01/28/20 21:03 Dose: 25 mg Documented by: Miscellaneous (Order Awaiting Action) 1 ea N/A QS [facility] Stop: 02/26/20 00:00 Last Admin: 01/29/20 08:37 Dose: Not Given Documented by: Nitroglycerin (Nitrostat) 0.4 mg SL PRN PRN PRN Reason: Chest Pain Stop: 02/25/20 21:17 Olanzapine (Zyprexa) 2.5 mg PO Q2H PRN PRN Reason: Agitation Stop: 02/26/20 07:15 Last Admin: 01/28/20 21:54 Dose: 2.5 mg Documented by: Olanzapine (Zyprexa) 5 mg IM Q4H PRN PRN Reason: Agitation Stop: 02/26/20 07:44 Last Admin: 01/28/20 03:36 Dose: 5 mg Documented by: Ondansetron HCl (Zofran) 4 mg IV Q6H PRN PRN Reason: Nausea Stop: 02/25/20 21:17 Pantoprazole Sodium (Protonix) 40 mg PO BID [facility] Stop: 02/25/20 21:59 Last Admin: 01/29/20 08:45 Dose: 40 mg Documented by: Polyethylene Glycol (Miralax Powder Packet) 17 gm PO DAILY PRN PRN Reason: Constipation Stop: 02/25/20 21:17 Quetiapine Fumarate (Seroquel) 25 mg PO QPM [facility] Stop: 02/27/20 20:59 Last Admin: 01/28/20 21:02 Dose: 25 mg Documented by: Sotalol HCl (Betapace) 80 mg PO BID [facility] Stop: 02/25/20 21:59 Last Admin: 01/29/20 08:44 Dose: 80 mg Documented by: Spironolactone (Aldactone) 25 mg PO QAM [facility] Stop: 02/26/20 08:59 Last Admin: 01/29/20 08:45 Dose: 25 mg Documented by: Trazodone HCl (Desyrel) 50 mg PO [facility] Stop: 02/25/20 21:17 Last Admin: 01/28/20 21:54 Dose: 50 mg Documented by: Umeclidinium/Vilanterol (Anoro Ellipta 62.5/25 Mcg Inh) 1 puffs INH [facility] Stop: 02/25/20 21:59 Last Admin: 01/28/20 20:59 Dose: Not Given Documented by: (1) AMS (altered mental status) Altered mental status type: unspecified Qualified Code(s): R41.82 - Altered mental status, unspecified (2) CAD (coronary artery disease), [place] coronary artery [place] vs. transplanted heart: [place] heart Associated angina: with stable angina Qualified Code(s): I25.118 - Atherosclerotic heart disease of [place] coronary artery with other forms of angina pectoris (3) Atrial fibrillation Atrial fibrillation type: unspecified Qualified Code(s): I48.91 - Unspecified atrial fibrillation
[2020-01-29] MEDS ORDERED: ALBUTEROL INH PRN (10:48)
--- NOTE | 2020-01-29 12:40 | Psychiatric Progress Note ---
Date of Service January 29, 2020 Impression / Recommendations Impression -No psychiatric history or evidence of a primary mood, anxiety, or thought disorder. Agree with neurology that AMS is multifactorial and differential includes dementia, substance abuse, age, delirium, seizures, and other medical comorbidities. Cognition impaired (visuospatial/executive, language, and memory) with 22/30 on [facility] 01/28/2020. -Discussed case with Dr. Vaz of neurology, and agree with switching Keppra to an antiepileptic medication that may also provide mood stabilizing benefits, now on valproate. Keppra can worsen anxiety and agitation so could have contributed to his recent symptoms. -As there is not a primary psychiatric disorder driving patient's symptoms and behavior, he is not committable under [place] mental health law. I completed his 302 paperwork, dismissing the 302. -Avoid use of controlled substances due to the risk of abuse/misuse/negative outcomes. Patient states willingness to abstain from alcohol and Ambien. -Avoid antipsychotic medication except when patient's behavior place himself or those around him at imminent risk of harm, given the risk of in elderly patients with dementia as well as the risk of arrhythmia with QTC prolongation (QTC today 566). -Please contact us with any further questions. Interval History Chief Complaint " Feeling good". Review of Systems Notes No SI, HI, AVH, pressured speech, mood lability, euphoria, disorganized speech, delusions or paranoia. Subjective Subjective Patient was seen & assessed and interval progress reviewed, also reviewed with the psychiatric liaison nurse, his floor nurse, and pillowcase cleaner. Per nursing notes, patient has been calm and cooperative. He took all of his prescribed medications yesterday with the exception of amoxicillin/clavulanate, and today took all of his prescribed medications. Social work is working with his brother/POA to find appropriate placement. On my assessment, he was seen with his friend Williams, who remained during the assessment at the patient's request, and his friend Mckay joined us partway through. His parents confirmed that he has had no history of mood, anxiety, or psychotic symptoms, and no history of agitation or anger outbursts until 3 weeks ago, when he abruptly developed altered mental status. Prior to that, he had been struggling with cardiac and pulmonary issues for about 2 months, and they described him as being very ill. His friend Williams states that he has been providing a lot of support for the patient during the past 3 weeks when he has been discharged from the hospital, but is clear that he is unable to care for himself at home, and he is not able to continue to provide this level of support and oversight. The patient himself continues to state that he expects to go home in the next few days, and that he has recovered and no longer needs to be hospitalized. He continues to deny symptoms of depression, anxiety, and psychosis. He denies problems with sleep and appetite. He is hoping to shower today. He is able to review the medication changes (Keppra changed to Depakote), as well as his various medical conditions, but is not able to reiterate recommendations regarding placement. EKG this morning atrial paced rhythm with ventricular rate 67 and QTC 566. Physical Exam Psychiatric Orientation: alert, oriented x 3 and cooperative Apperance: appropriately dressed, appropriately groomed and appeared stated age Seated in no acute distress in a bedside chair, visiting with friends. Eye Contact: good eye contact Motor Behavior: no abnormal motor movements Speech: normal rate/rhythm/volume of speech Talkative, with a rambling quality to speech, but not pressured. Affect: euthymic affect and mood congruent with affect Stable and appropriate. "Pretty good." Thought Process: + circumstantial thought process Thought Content: reality based without delusions Suicidal Thoughts: denies suicidal thoughts Homicidal Thoughts: denies homicidal thoughts Hallucinations: no auditory hallucinations and no visual hallucinations Able to relay recent medication changes and recommendations regarding controlled substances, but not treatment plan with respect to disposition and placement. Insight: + limited insight Judgement: + limited judgement Vital Signs (Past 24 Hours) Last Vital Signs Temp 36.8 C 01/29/20 11:30 Pulse 70 01/29/20 11:30 Resp 18 01/29/20 11:30 BP 134/65 01/29/20 11:30 Pulse Ox 95 01/29/20 11:30 Results & Data ([facility]) Current Inpatient Medications Current Inpatient Medications: Current Inpatient Medications Acetaminophen (Tylenol) 650 mg PO Q4H PRN PRN Reason: Pain or Fever Stop: 02/25/20 21:17 Al Hydrox/Mg Hydrox/Simethicone (Maalox) 15 ml PO Q4H PRN PRN Reason: Dyspepsia Stop: 02/25/20 21:17 Amoxicillin/Clavulanate Potassium (Augmentin 875mg) 1 tab PO BIDM [facility]; Protocol Stop: 02/07/20 07:59 Last Admin: 01/29/20 08:43 Dose: 1 tab Documented by: Apixaban (Eliquis) 5 mg PO BID [facility] Stop: 02/25/20 21:17 Last Admin: 01/29/20 08:43 Dose: 5 mg Documented by: Atorvastatin Calcium (Lipitor) 80 mg PO QPM [facility] Stop: 02/25/20 21:17 Last Admin: 01/28/20 21:07 Dose: 80 mg Documented by: [facility]id[facility] ([facility]) [facility] Stop: 02/26/20 08:59 Last Admin: 01/29/20 08:46 Dose: 75 mg Documented by: Fluticasone/Umeclidinium/Vilanterol (Trelegy Ellipta 100-62.5-25) 1 ea INH [facility] Stop: 02/28/20 20:59 Folic Acid (Folvite) 1 mg PO [facility] Stop: 02/26/20 08:59 Last Admin: 01/29/20 08:45 Dose: 1 mg Documented by: Furosemide (Lasix) 60 mg PO [facility] Stop: 02/28/20 08:59 Last Admin: 01/29/20 08:44 Dose: 60 mg Documented by: Thiamine HCl 500 mg/ Sodium (Chloride) 55 mls @ 208 mls/hr IV TID [facility] Stop: 02/26/20 20:59 Last Infusion: 01/29/20 09:09 Dose: Infused Documented by: Valproic Acid 250 mg/ Dextrose 52.5 mls @ 55 mls/hr IV Q6H [facility] Stop: 02/27/20 15:59 Last Infusion: 01/29/20 09:47 Dose: Infused Documented by: Isosorbide Mononitrate (Imdur Extended Rel) 60 mg PO [facility] Stop: 02/26/20 08:59 Last Admin: 01/29/20 08:46 Dose: 60 mg Documented by: Losartan Potassium (Cozaar) 25 mg PO [facility] Stop: 02/25/20 21:17 Last Admin: 01/28/20 21:05 Dose: 25 mg Documented by: Magnesium Hydroxide (Milk Of Magnesia) 30 ml PO Q12H PRN PRN Reason: Constipation Stop: 02/25/20 21:17 Metoprolol Succinate (Toprol Xl) 25 mg PO HS [facility] Stop: 02/25/20 21:17 Last Admin: 01/28/20 21:03 Dose: 25 mg Documented by: Miscellaneous (Order Awaiting Action) 1 ea N/A QS [facility] Stop: 02/26/20 00:00 Last Admin: 01/29/20 08:37 Dose: Not Given Documented by: Nitroglycerin (Nitrostat) 0.4 mg SL PRN PRN PRN Reason: Chest Pain Stop: 02/25/20 21:17 Albuterol: Non- Formulary Patient's Own Med 1 ea INH Q6H PRN PRN Reason: Shortness Of Breath Stop: 02/28/20 10:47 Olanzapine (Zyprexa) 2.5 mg PO Q2H PRN PRN Reason: Agitation Stop: 02/26/20 07:15 Last Admin: 01/28/20 21:54 Dose: 2.5 mg Documented by: Olanzapine (Zyprexa) 5 mg IM Q4H PRN PRN Reason: Agitation Stop: 02/26/20 07:44 Last Admin: 01/28/20 03:36 Dose: 5 mg Documented by: Ondansetron HCl (Zofran) 4 mg IV Q6H PRN PRN Reason: Nausea Stop: 02/25/20 21:17 Pantoprazole Sodium (Protonix) 40 mg PO BID [facility] Stop: 02/25/20 21:59 Last Admin: 01/29/20 08:45 Dose: 40 mg Documented by: Polyethylene Glycol (Miralax Powder Packet) 17 gm PO DAILY PRN PRN Reason: Constipation Stop: 02/25/20 21:17 Quetiapine Fumarate (Seroquel) 25 mg PO QPM [facility] Stop: 02/27/20 20:59 Last Admin: 01/28/20 21:02 Dose: 25 mg Documented by: Sotalol HCl (Betapace) 80 mg PO BID [facility] Stop: 02/25/20 21:59 Last Admin: 01/29/20 08:44 Dose: 80 mg Documented by: Spironolactone (Aldactone) 25 mg PO QAM [facility] Stop: 02/26/20 08:59 Last Admin: 01/29/20 08:45 Dose: 25 mg Documented by: Trazodone HCl (Desyrel) 50 mg PO HS [facility] Stop: 02/25/20 21:17 Last Admin: 01/28/20 21:54 Dose: 50 mg Documented by:
--- NOTE | 2020-01-29 13:51 | Hospitalist Progress Note ---
Date of Service January 29, 2020 Assessment & Plan (1) Impaired decision making: Patient continues to lack capacity to make decisions regarding medications, discharge planning. Limited insight into his medical conditions or reason why he is in hospital. Discussed care with his POA brother Josemanuel agrees with ongoing plan. (2) AMS (altered mental status): Appreciate neurology and psychiatry help with this complex patient. Patient started on IV Depakote on 01/27 for both seizure prophylaxis and appears to be helping with his diana in addition and is much more stable today (most of his frustration directed at Augmentin prescription which is understandable). 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 No cardiac arrhythmias during blank facial, mild facial droop, expressive aphasic episodes, weakness in legs episodes - previously described as pre-syncope however I suspect these are actually partial seizures and suspect he has been having multiple of these at home; he even describes having similar episodes with increasing frequency over multiple years. In addition he has had at least 2 tonic-clonic seizures witnessed (this is how they were described by people who witnessed them who I spoke to personally although I have not witnessed one myself). Likely recently exacerbated by diana and insomnia after being taken off sleep aids. Rx Appreciate neurology recommendations, note mentions no seizures over the last 24 hours however he continues to have blank/drooping facial expression with expressive aphasia episodes (2 noted today by friends/staff reported to me). Friend "Williams" to check if he was taking Keppra at home which may explain his diana on admission Continue IV Depakote, had another partial episode this morning and afternoon therefore will continue with IV dosing and get trough level in AM as per neuro note (4) Alcoholic Korsakoff syndrome: Patient is amenable to having increased frequency of short term memory deficits and willing to have thiamine but has little insight into how this is and can affect his management at home. He certainly has a lack of concern which is possible apathy but he hasn't lost his interest in doing things. Thiamine level pending. Continue treatment with IV thiamine 500mg TID for 3 days then can switch to oral, patient willing to stay for this but has lack of insight into diagnosis (5) Diana: This appears much improved with Depakote although unclear whether also just improved due to sleep. ?Underlying dementia associated psychosis vs. primary psychiatric monopolor diana previously suppressed by alcohol - either way Rx Depakote as above (mainly for anti-seizure) medication (6) Paranoid delusion: No further paranoia such as the combination of lactose and gluten will kill him. This was not a joking or fly by statement that he made 2 days ago but one he made this persistently and would not eat any food as a result. He is not making any such statements today and tries to walk back and justify that statement he made to me on multiple occasions two days ago without having any real recollection of the event other than what I told him. Possibly paranoia improved with Zyprexa PRN doses and Seroquel given over last two days although QT prolongation limiting use of these and patient willingness also an issue. Therefore Seroquel discontinued and will monitor for worsening delusions or hallucinations. (7) Hallucinations, visual: None noticed while admitted but reports from his long time friend of talking to people who aren't there at home when left alone. Patient reports this was just a misunderstanding (as per multiple other abnormal behaviours he has had). Supports diagnosis of Korsakoff's. (8) Polypharmacy: Unlikely contributory at present. Previous admission felt to be contributory to benzodiazepine use. (9) Elevated troponin: Appreciate cardiology consult. Suspect demand-ischemia (chronically raised troponin), no further workup required. (10) Alcohol abuse: Patient states that he stopped drinking alcohol 3 weeks ago. No withdrawal suspected. (11) CAD (coronary artery disease), [place] coronary artery: Continue home medicine apixaban 5 mg p.o. twice daily, atorvastatin 80 mg p.o. every afternoon, clopidogrel 75 mg p.o. every morning, furosemide 60 mg p.o. (reduced to once daily due to hypotension, will monitor for HF), isosorbide mononitrate 60 mg p.o. every morning, losartan 25 mg p.o. nightly, metoprolol 25 mg p.o. nightly, nitroglycerin 0.5 mg as directed PRN, sotalol 80 mg p.o. twice daily, spironolactone 25 mg p.o. every morning. (12) Chronic systolic CHF (congestive heart failure): Patient appears to be euvolemic at this time with reduced dose of lasix due to low blood pressure. (13) Atrial fibrillation: Continue sotalol for rhythm control. NSR on admission EKG. NSR when on electroplating worker today. Continue apixaban 5 mg p.o. twice daily. (14) Pre-syncope: Ruled out Suspect these "episodes" are actually partial seizures (15) QT prolongation: 566ms on EKG today Seroquel discontinued Only use Zyprexa PRN if at risk to self or others Will continue trazodone for now and repeat EKG daily to monitor (16) Symmetrical drug-related intertriginous and flexural exanthema: (SDRIFE) - Suspect this is the rash he gets from amoxicillin use. Will d/c Augmentin (no prior or current sinus pain to warrant ongoing antibiotics). Updated allergy list to reflect true allergic reaction. (17) Insomnia: Continue trazodone as above. Discontinued Seroquel. No vital signs to be taken at midnight or 4am to aid in patient recovery. (18) DVT prophylaxis: Continue apixaban 5mg BID Admission and Anticipated Discharge Date Admission Date: January 27, 2020 Continued inpatient stay due to IV medications and continues to lack capacity but making improvements. Subjective Patient is much less manic today. Most of what he is saying makes complete sense although he is still jumbling up events and tries to play off all past events such as delusions and hallucinations (witnessed at home and in the hospital) as a misunderstanding. For one or two events this may make sense but he confabulates everything I say to him that has been going on as a misunderstanding and although acknowledges possibility of seizures at times he cannot retain this long enough to repeat back to me and how we are treating him. Some of his frustrations are clearly understandable. He was continued on augmentin due to copious green nasal congestion seen in ER with CT scan concerning for acute sinusitis. He has a listed allergy to amoxicillin, however had no allergic reaction when this was given in the ER therefore it was continued. He was refusing this up until he took it last night and he reports a lot of penile pain with a rash on his penis and testicle. This is what made his frustrated and suspects this lead to Zyprexa being given. There is no nursing documentation seen why zyprexa was given last night. He reports this rash is a true allergy diagnosed by Dr Lovell after trials off and on amoxicillin. As an example for above: Discussed his lactose/gluten intolerance with Josemanuel and they report this has only been present for a few years and possibly causes him reflux. His friend "Williams" reports he eats [employer] dairy ice cream and gluten in pizza without issues (his brother thinks he only has issues when he has too much). Josemanuel reports these intolerances have been diagnosed by a physician. Either way there is no way rationally the patient should be worried the combination of the two would kill him which he stated to me two days ago and he would not eat any of the food. He now tries states he did not order that food two days ago so that was different as he didn't know where it was from but he now knows where the food is from now so he is ok eating it. He maintains the We discussed trying a medication Seroquel for sleep rather than trazodone. He was given this the previous night with Josemanuel's consent but not discussed with the patient. The patient reports he does not want me to try and sell him on any new medication that Dr Newberry hasn't approved and that Dr Newberry was back tomorrow. He feels he has had a good sleep the last two nights. When told he has had antipsychotics the last two nights he still maintains the trazodone was always working by itself. When told he was clearly manic when he first came in and if his belief is that he wasn't getting enough sleep which lead to this admission which he has told me many times then how was it working. He responds he was sleeping well and that he came in willingly and asked his friend to bring him in to get to the bottom of what's going on (this story is disputed by his friend and the shear unwillingness fact that the patient has tried to leave on multiple occasions and refused labs in the ER initially). Review of Systems Review of Systems: All systems reviewed & are unremarkable except as noted in HPI & below Physical Exam Constitutional: WD/WN, vitals as above Eyes: + anicteric sclerae; normal pupil size ENMT: external ear and nose normal, oropharynx normal Neck: trachea midline, no thyromegaly Respiratory: normal respiratory effort, lungs clear to auscultation Cardiovascular: Rate/Rhythm: regular rate and regular rhythm Heart Sounds: no murmur Extremities: normal capillary refill and + pedal edema (trace b/l) Gastrointestinal (Abdomen): normal bowel sounds, soft, nontender, no hepatosplenomegaly Musculoskeletal: no cyanosis or clubbing, extremities motor strength 5/5 Skin: + rash (mild erythema on right side of penis to scrotum) Neurologic: moves all extremities and awake; not confused Psychiatric: Orientation: alert and oriented x 3 Apperance: appropriately dressed Eye Contact: good eye contact Motor Behavior: no abnormal motor movements Speech: normal rate/rhythm/volume of speech (mildly pressured) Affect: euthymic affect Mood: + irritable mood Thought Process: + tangential thought process, + looseness of associations and + confabulations; + thought process not clear or coherent Thought Content: + preoccupation and + compulsions; not paranoid and no delusions Suicidal Thoughts: denies suicidal thoughts Homicidal Thoughts: denies homicidal thoughts Hallucinations: no auditory hallucinations and no visual hallucinations Cognition: remote memory grossly intact and attention grossly intact; + recent memory not intact (jumbled and confabulated) Insight: + impaired insight Judgement: + impaired judgement Results & Data ([facility]) Vital Signs (Past 12 Hours) Vital Signs Temp Pulse Pulse Resp BP BP Pulse Ox 01/29/20 11:30 36.8 C 70 18 134/65 95 01/29/20 10:10 89 01/29/20 06:58 36.5 C 69 20 99/60 L 94 PG Care Time/CCT Total # of Minutes Spent Total Time Spent with Patient: Total time spent is greater than 50% in coordination of care (as documented) at patient's floor/unit and/or counseling patient: Coding Level of Care Code 19903 Subseq Hosp Care Lvl 3 Diagnoses Impaired decision making Z78.9 AMS (altered mental status) R41.82 Altered mental status type: unspecified Seizure R56.9 Alcoholic Korsakoff syndrome F10.96 Diana F30.9 Paranoid delusion F22 Hallucinations, visual R44.1 Polypharmacy Z79.899 Elevated troponin R79.89 Alcohol abuse F10.10 CAD (coronary artery disease), [place] coronary artery I25.118 Associated angina: with stable angina [place] vs. transplanted heart: [place] heart Chronic systolic CHF (congestive heart failure) I50.22 Atrial fibrillation I48.91 Atrial fibrillation type: unspecified Pre-syncope R55 QT prolongation R94.31 Symmetrical drug-related intertriginous and flexural exanthema L27.0 Insomnia G47.00 Insomnia type: unspecified DVT prophylaxis Z29.9 (1) Atrial fibrillation Atrial fibrillation type: unspecified Qualified Code(s): I48.91 - Unspecified atrial fibrillation (2) CAD (coronary artery disease), [place] coronary artery Associated angina: with stable angina [place] vs. transplanted heart: [place] heart Qualified Code(s): I25.118 - Atherosclerotic heart disease of [place] coronary artery with other forms of angina pectoris (3) AMS (altered mental status) Altered mental status type: unspecified Qualified Code(s): R41.82 - Altered mental status, unspecified (4) Insomnia Insomnia type: unspecified Qualified Code(s): G47.00 - Insomnia, unspecified
--- NOTE | 2020-01-29 18:01 | Electrocardiogram Report ---
Test Reason : Blood Pressure : / mmHG Vent. Rate : 067 BPM Atrial Rate : 067 BPM P-R Int : 254 ms QRS Dur : 122 ms QT Int : 536 ms P-R-T Axes : -09 -36 122 degrees QTc Int : 566 ms Atrial-paced rhythm with prolonged AV conduction with occasional Premature ventricular complexes Left axis deviation Minimal voltage criteria for LVH, may be normal variant Inferior infarct , age undetermined Cannot rule out Anterior infarct , age undetermined Prolonged QT Abnormal ECG When compared with ECG of 27-JAN-2020 01:50, Atrial pacing has replaced Sinus rhythm Premature ventricular complexes are now Present QT has lengthened Confirmed by Gaurang De Leon ([id number]) on 01/29/2020 6:01:24 PM Referred By: Quirino Hensley Confirmed By:Gaurang De Leon
[2020-01-29] MEDS: ATORVASTATIN 40 MG TAB PO SCH (21:43)
[2020-01-29] MEDS: METOPROLOL SUCC 25MG EXT REL TAB PO SCH (21:44)
[2020-01-29] MEDS: FLUTICASONE/UMECLIDIN/VILANTER INH SCH (21:47)
[2020-01-29] MEDS: LOSARTAN POTASSIUM 25 MG TAB PO SCH (21:47)
[2020-01-30] MEDS: TRAZODONE HCL 50 MG TAB PO SCH (00:28)
[2020-01-30] MEDS: VALPROATE SOD 250 MG in DEXTROSE 5% 50 ML IV SCH ×2 (03:12→09:11)
[2020-01-30 05:42] LABS: Basophils # (auto) 0.03 K/uL (0-0.2); Basophils % (auto) 0.5 %; Eosinophils # (auto) 0.35 K/uL (0-0.5); Eosinophils % (auto) 5.4 %; Hemoglobin 12.8 g/dL (14.0-18.0); Immature Granulocytes # (auto) 0.02 K/uL (0.00-0.02); Immature Granulocytes % (auto) 0.3 %; Lymphocytes # (auto) 1.28 K/uL (1.2-3.4); Lymphocytes % (auto) 19.8 %; Mean Corpuscular Hemoglobin 27.6 pg (25-34); Mean Corpuscular Volume 86.2 fL (80-100); Mean Platelet Volume 9.9 fL (7.4-10.4); Monocytes # (auto) 0.77 K/uL (0.11-0.59); Monocytes % (auto) 11.9 %; Neutrophils # (auto) 4.01 K/uL (1.4-6.5); Neutrophils % (auto) 62.1 %; Platelet Count 161 K/uL (130-400); RDW Coefficient of Variation 18.5 % (11.5-14.5); RDW Standard Deviation 58.8 fL (36.4-46.3); Red Blood Count 4.64 M/uL (4.7-6.1); White Blood Count 6.46 K/uL (4.8-10.8)
[2020-01-30 06:16] LABS: Albumin Level 2.9 gm/dl (3.4-5.0); BUN Creatinine Ratio 14.1 (10-20); Calcium 8.7 mg/dl (8.5-10.1); Creatinine Clr Calc Pharmacy 47.9 ml/min; Est GFR (African American) 61.7; Est GFR (Non-African American) 53.3; Magnesium 1.8 mg/dl (1.8-2.4); Potassium 3.7 mmol/L (3.5-5.1)
[2020-01-30 06:19] LABS: Albumin Globulin Ratio 0.7 (0.9-2); Bilirubin,Total 0.5 mg/dl (0.2-1); Globulin 3.9 gm/dl (2.5-4.0); Phosphorus 3.5 mg/dl (2.5-4.9); Total Protein 6.8 gm/dl (6.4-8.2)
[2020-01-30] MEDS: APIXABAN 5 MG TABLET PO SCH ×2 (08:35→21:50)
[2020-01-30] MEDS: CLOPIDOGREL BISULFATE 75 MG TAB PO SCH (08:35)
[2020-01-30] MEDS: PANTOprazole 40 MG TAB PO SCH ×2 (08:35→21:51)
[2020-01-30] MEDS: SPIRONOLACTONE 25 MG TAB PO SCH (08:35)
[2020-01-30] MEDS: ISOSORBIDE MONO EXTENDED REL 60 MG TABCR PO SCH (08:35)
[2020-01-30] MEDS: FUROSEMIDE 20 MG TAB PO SCH (08:35)
[2020-01-30] MEDS: FOLIC ACID 1 MG TAB PO SCH (08:36)
[2020-01-30] MEDS: SOTALOL HCL 80 MG TAB PO SCH ×2 (08:36→21:51)
[2020-01-30] MEDS: THIAMINE HCL 500 MG in SODIUM CHLORIDE 0.9% 50 ML IV SCH ×3 (08:39→21:55)
--- NOTE | 2020-01-30 10:12 | Electroencephalogram ---
EEG Procedure Note Date of Service January 30, 2020 Start / End Times Start Time: 916 End Time: [address] Cohen History 75-year-old with intermittent episodes of seizure like activity. Home Medication List Home Medications Medication Instructions Recorded Confirmed Type atorvastatin 80 mg PO QPM 11/13/18 01/26/20 History clopidogrel [Plavix] 75 mg PO QAM 11/13/18 01/26/20 History folic acid 1 mg PO QAM 11/13/18 01/26/20 History omeprazole 40 mg PO BID 11/13/18 01/26/20 History nitroglycerin 0.4 mg sublingual 0.4 mg SL DIRECTED PRN 08/29/19 01/26/20 History tablet Trelegy Ellipta 1 inh INHALATION HS 09/22/19 01/26/20 History isosorbide mononitrate 60 mg PO QAM 09/22/19 01/26/20 History apixaban 5 mg tablet 5 mg PO BID 12/30/19 01/26/20 History furosemide 40 mg tablet 60 mg PO BID tab 12/30/19 01/26/20 History sotalol 80 mg tablet 80 mg PO BID 12/30/19 01/26/20 History losartan 25 mg PO HS 01/10/20 01/26/20 History testosterone [AndroGel] 2 pump TRANSDERMAL QAM 01/10/20 01/26/20 History spironolactone 25 mg PO QAM 01/11/20 01/26/20 History thiamine HCl (vitamin B1) [Vitamin 100 mg PO QAM #30 tab 01/11/20 01/26/20 Rx B-1] metoprolol succinate 25 mg PO HS 30 Days #30 tab 01/18/20 01/26/20 Rx albuterol sulfate 90 mcg INH Q6H PRN 01/26/20 01/26/20 History cholecalciferol (vitamin D3) 2,000 unit PO DAILY 01/26/20 01/26/20 History [Vitamin D3] levetiracetam 500 mg PO BID 01/26/20 01/26/20 History trazodone 50 mg PO HS 01/26/20 01/26/20 History Inpatient Medication List Apixaban (Eliquis) 5 mg PO BID ALEJANDRA Stop: 02/25/20 21:17 Last Admin: 01/30/20 08:35 Dose: 5 mg Documented by: [id number] Admin: 01/29/20 21:45 Dose: 5 mg Documented by: [id number] Admin: 01/29/20 08:43 Dose: 5 mg Documented by: [id number] Admin: 01/28/20 21:04 Dose: 5 mg Documented by: [id number] Admin: 01/28/20 09:11 Dose: 5 mg Documented by: [id number] Admin: 01/27/20 21:05 Dose: Not Given Documented by: [id number] Admin: 01/27/20 10:40 Dose: Not Given Documented by: [id number] Admin: 01/26/20 22:28 Dose: 5 mg Documented by: [id number] Atorvastatin Calcium (Lipitor) 80 mg PO QPM ALEJANDRA Stop: 02/25/20 21:17 Last Admin: 01/29/20 21:43 Dose: 80 mg Documented by: [id number] Admin: 01/28/20 21:07 Dose: 80 mg Documented by: [id number] Admin: 01/27/20 20:59 Dose: Not Given Documented by: [id number] Admin: 01/26/20 22:29 Dose: 80 mg Documented by: [id number] Clopidogrel [facility]ate (Plavix) [facility] [place] Stop: 02/26/20 08:59 Last Admin: 01/30/20 08:35 Dose: 75 mg Documented by: [id number] Admin: 01/29/20 08:46 Dose: 75 mg Documented by: [id number] Admin: 01/28/20 09:10 Dose: 75 mg Documented by: [id number] Admin: 01/27/20 10:41 Dose: Not Given Documented by: [id number] Fluticasone/Umeclidinium/Vilanterol (Trelegy Ellipta 100-62.5-25) 1 ea INH HS ALEJANDRA Stop: 02/28/20 20:59 Last Admin: 01/29/20 21:47 Dose: Not Given Documented by: [id number] Folic Acid (Folvite) 1 mg PO QAM [facility] Stop: 02/26/20 08:59 Last Admin: 01/30/20 08:36 Dose: 1 mg Documented by: [id number] Admin: 01/29/20 08:45 Dose: 1 mg Documented by: [id number] Admin: 01/28/20 09:09 Dose: 1 mg Documented by: [id number] Admin: 01/27/20 10:41 Dose: Not Given Documented by: [id number] Furosemide (Lasix) 60 mg PO QAM ALEJANDRA Stop: 02/28/20 08:59 Last Admin: 01/30/20 08:35 Dose: 60 mg Documented by: [id number] Admin: 01/29/20 08:44 Dose: 60 mg Documented by: [id number] Thiamine HCl 500 mg/ Sodium (Chloride) 55 mls @ 208 mls/hr IV TID ALEJANDRA Stop: 02/26/20 20:59 Last Infusion: 01/30/20 09:06 Dose: 0 mls/hr Documented by: [id number] Admin: 01/30/20 08:39 Dose: 208 mls/hr Documented by: [id number] Infusion: 01/29/20 22:22 Dose: 0 mls/hr Documented by: [id number] Admin: 01/29/20 21:48 Dose: 208 mls/hr Documented by: [id number] Infusion: 01/29/20 14:47 Dose: 0 mls/hr Documented by: [id number] Admin: 01/29/20 14:09 Dose: 208 mls/hr Documented by: [id number] Infusion: 01/29/20 09:09 Dose: 0 mls/hr Documented by: [id number] Admin: 01/29/20 08:40 Dose: 208 mls/hr Documented by: [id number] Infusion: 01/28/20 18:01 Dose: 0 mls/hr Documented by: [id number] Admin: 01/28/20 17:45 Dose: 208 mls/hr Documented by: [id number] Admin: 01/28/20 12:59 Dose: Not Given Documented by: [id number] Admin: 01/28/20 09:12 Dose: Not Given Documented by: [id number] Admin: 01/27/20 21:06 Dose: Not Given Documented by: [id number] Valproic Acid 250 mg/ Dextrose 52.5 mls @ 55 mls/hr IV Q6H ALEJANDRA Stop: 02/27/20 15:59 Last Admin: 01/30/20 09:11 Dose: 55 mls/hr Documented by: [id number] Infusion: 01/30/20 04:59 Dose: 0 mls/hr Documented by: [id number] Admin: 01/30/20 03:12 Dose: 55 mls/hr Documented by: [id number] Infusion: 01/29/20 23:23 Dose: 0 mls/hr Documented by: [id number] Admin: 01/29/20 22:23 Dose: 55 mls/hr Documented by: [id number] Infusion: 01/29/20 17:18 Dose: 0 mls/hr Documented by: [id number] Admin: 01/29/20 16:25 Dose: 55 mls/hr Documented by: [id number] Infusion: 01/29/20 09:47 Dose: 0 mls/hr Documented by: [id number] Admin: 01/29/20 08:42 Dose: 55 mls/hr Documented by: [id number] Infusion: 01/29/20 05:10 Dose: 0 mls/hr Documented by: [id number] Admin: 01/29/20 04:17 Dose: 55 mls/hr Documented by: [id number] Infusion: 01/28/20 22:03 Dose: 0 mls/hr Documented by: [id number] Admin: 01/28/20 21:03 Dose: 55 mls/hr Documented by: [id number] Infusion: 01/28/20 16:52 Dose: 0 mls/hr Documented by: [id number] Admin: 01/28/20 15:54 Dose: 55 mls/hr Documented by: [id number] Isosorbide Mononitrate (Imdur Extended Rel) 60 mg PO [facility] Stop: 02/26/20 08:59 Last Admin: 01/30/20 08:35 Dose: 60 mg Documented by: [id number] Admin: 01/29/20 08:46 Dose: 60 mg Documented by: [id number] Admin: 01/28/20 09:10 Dose: 60 mg Documented by: [id number] Admin: 01/27/20 10:41 Dose: Not Given Documented by: [id number] Losartan Potassium (Cozaar) 25 mg PO [facility] Stop: 02/25/20 21:17 Last Admin: 01/29/20 21:47 Dose: 25 mg Documented by: [id number] Admin: 01/28/20 21:05 Dose: 25 mg Documented by: [id number] Admin: 01/27/20 21:05 Dose: Not Given Documented by: [id number] Admin: 01/26/20 22:31 Dose: 25 mg Documented by: [id number] Metoprolol Succinate (Toprol Xl) 25 mg PO [facility] Stop: 02/25/20 21:17 Last Admin: 01/29/20 21:44 Dose: 25 mg Documented by: [id number] Admin: 01/28/20 21:03 Dose: 25 mg Documented by: [id number] Admin: 01/27/20 21:06 Dose: Not Given Documented by: [id number] Admin: 01/26/20 22:30 Dose: 25 mg Documented by: [id number] Miscellaneous (Order Awaiting Action) 1 ea N/A QS [facility] Stop: 02/26/20 00:00 Last Admin: 01/30/20 08:33 Dose: Not Given Documented by: [id number] Admin: 01/30/20 00:13 Dose: Not Given Documented by: [id number] Admin: 01/29/20 16:25 Dose: Not Given Documented by: [id number] Admin: 01/29/20 08:37 Dose: Not Given Documented by: [id number] Admin: 01/28/20 23:09 Dose: Not Given Documented by: [id number] Admin: 01/28/20 15:53 Dose: Not Given Documented by: [id number] Admin: 01/28/20 09:01 Dose: Not Given Documented by: [id number] Admin: 01/28/20 00:42 Dose: Not Given Documented by: [id number] Admin: 01/27/20 15:34 Dose: Not Given Documented by: [id number] Admin: 01/27/20 10:40 Dose: Not Given Documented by: [id number] Admin: 01/26/20 23:01 Dose: Not Given Documented by: [id number] Olanzapine (Zyprexa) 2.5 mg PO Q2H PRN PRN Reason: Agitation Stop: 02/26/20 07:15 Last Admin: 01/28/20 21:54 Dose: 2.5 mg Documented by: [id number] Olanzapine (Zyprexa) 5 mg IM Q4H PRN PRN Reason: Agitation Stop: 02/26/20 07:44 Last Admin: 01/28/20 03:36 Dose: 5 mg Documented by: [id number] Admin: 01/27/20 22:25 Dose: 5 mg Documented by: [id number] Pantoprazole Sodium (Protonix) 40 mg PO BID [facility] Stop: 02/25/20 21:59 Last Admin: 01/30/20 08:35 Dose: 40 mg Documented by: [id number] Admin: 01/29/20 21:44 Dose: 40 mg Documented by: [id number] Admin: 01/29/20 08:45 Dose: 40 mg Documented by: [id number] Admin: 01/28/20 21:04 Dose: 40 mg Documented by: [id number] Admin: 01/28/20 09:10 Dose: 40 mg Documented by: [id number] Admin: 01/27/20 20:59 Dose: Not Given Documented by: [id number] Admin: 01/27/20 10:41 Dose: Not Given Documented by: [id number] Admin: 01/26/20 22:29 Dose: 40 mg Documented by: [id number] Sotalol HCl (Betapace) 80 mg PO BID ALEJANDRA Stop: 02/25/20 21:59 Last Admin: 01/30/20 08:36 Dose: 80 mg Documented by: [id number] Admin: 01/29/20 21:49 Dose: 80 mg Documented by: [id number] Admin: 01/29/20 08:44 Dose: 80 mg Documented by: [id number] Admin: 01/28/20 21:05 Dose: 80 mg Documented by: [id number] Admin: 01/28/20 09:11 Dose: 80 mg Documented by: [id number] Admin: 01/27/20 21:05 Dose: Not Given Documented by: [id number] Admin: 01/27/20 10:40 Dose: Not Given Documented by: [id number] Admin: 01/26/20 22:30 Dose: 80 mg Documented by: [id number] Spironolactone (Aldactone) 25 mg PO QAM ALEJANDRA Stop: 02/26/20 08:59 Last Admin: 01/30/20 08:35 Dose: Not Given Documented by: [id number] Admin: 01/29/20 08:45 Dose: 25 mg Documented by: [id number] Admin: 01/28/20 09:11 Dose: 25 mg Documented by: [id number] Admin: 01/27/20 10:40 Dose: Not Given Documented by: [id number] Trazodone HCl (Desyrel) 50 mg PO HS ALEJANDRA Stop: 02/25/20 21:17 Last Admin: 01/30/20 00:28 Dose: 50 mg Documented by: [id number] Admin: 01/28/20 21:54 Dose: 50 mg Documented by: [id number] Admin: 01/27/20 21:05 Dose: Not Given Documented by: [id number] Admin: 01/26/20 22:36 Dose: 50 mg Documented by: [id number] Discontinued Medications Amoxicillin/Clavulanate Potassium (Augmentin 875mg) 1 tab PO NOW ONE Stop: 01/26/20 17:49 Last Admin: 01/26/20 19:12 Dose: 1 tab Documented by: [id number] Amoxicillin/Clavulanate Potassium (Augmentin 875mg) 1 tab PO BIDM [facility] Stop: 02/03/20 07:59 Last Admin: 01/27/20 10:40 Dose: Not Given Documented by: [id number] Amoxicillin/Clavulanate Potassium (Augmentin 875mg) 1 tab PO BIDM [facility]; Protocol Stop: 02/07/20 07:59 Last Admin: 01/29/20 08:43 Dose: 1 tab Documented by: [id number] Admin: 01/28/20 15:53 Dose: Not Given Documented by: [id number] Admin: 01/28/20 09:06 Dose: Not Given Documented by: [id number] Amoxicillin/Clavulanate Potassium (Augmentin 875mg) 1 tab PO ONE ONE Stop: 01/27/20 18:31 Last Admin: 01/27/20 19:43 Dose: Not Given Documented by: [id number] Fluticasone Furoate (Arnuity Ellipta 100mcg) 1 puffs INH [facility] Stop: 02/25/20 21:59 Last Admin: 01/28/20 20:59 Dose: Not Given Documented by: [id number] Admin: 01/27/20 20:59 Dose: Not Given Documented by: [id number] Admin: 01/26/20 22:38 Dose: Not Given Documented by: [id number] Folic Acid (Folvite) 1 mg PO ONE ONE Stop: 01/26/20 09:01 Last Admin: 01/26/20 22:13 Dose: 1 mg Documented by: [id number] Furosemide (Lasix) 60 mg PO BID [facility] Stop: 02/25/20 21:17 Last Admin: 01/28/20 09:10 Dose: 60 mg Documented by: [id number] Admin: 01/27/20 21:05 Dose: Not Given Documented by: [id number] Admin: 01/27/20 10:41 Dose: Not Given Documented by: [id number] Admin: 01/26/20 22:28 Dose: 60 mg Documented by: [id number] Levetiracetam 1,000 mg/ (Dextrose) 110 mls @ 440 mls/hr IV ONE ONE Stop: 01/27/20 21:59 Last Infusion: 01/27/20 22:10 Dose: 0 mls/hr Documented by: [id number] Admin: 01/27/20 21:47 Dose: 440 mls/hr Documented by: [id number] Valproic Acid 1,000 mg/ (Dextrose) 110 mls @ 55 mls/hr IV NOW STA Stop: 01/28/20 12:07 Last Infusion: 01/28/20 12:58 Dose: 0 mls/hr Documented by: [id number] Admin: 01/28/20 10:58 Dose: 55 mls/hr Documented by: [id number] Lamotrigine (Lamictal) 25 mg PO BID ALEJANDRA Stop: 02/26/20 20:59 Last Admin: 01/28/20 09:09 Dose: 25 mg Documented by: [id number] Admin: 01/27/20 21:05 Dose: Not Given Documented by: [id number] Levetiracetam (Keppra) 500 mg PO BID [facility] Stop: 02/25/20 21:17 Last Admin: 01/27/20 10:41 Dose: Not Given Documented by: [id number] Admin: 01/26/20 22:30 Dose: 500 mg Documented by: [id number] Lorazepam (Ativan) Confirm Administered Dose 1 mg .ROUTE .STK-MED ONE Stop: 01/27/20 10:45 Last Admin: 01/27/20 10:50 Dose: Not Given Documented by: [id number] Lorazepam (Ativan) Confirm Administered Dose 2 mg .ROUTE .STK-MED ONE Stop: 01/27/20 21:43 Last Admin: 01/27/20 22:46 Dose: Not Given Documented by: [id number] Metoprolol Tartrate (Lopressor) Confirm Administered Dose 5 mg IV .STK-MED ONE Stop: 01/27/20 21:40 Last Admin: 01/27/20 22:45 Dose: Not Given Documented by: [id number] Quetiapine Fumarate (Seroquel) 25 mg PO QPM ALEJANDRA Stop: 02/27/20 20:59 Last Admin: 01/28/20 21:02 Dose: 25 mg Documented by: [id number] Sodium Chloride ([place] Nasal) Confirm Administered Dose 225 sprays .ROUTE .STK- MED ONE Stop: 01/28/20 13:23 Last Admin: 01/28/20 13:53 Dose: 225 sprays Documented by: [id number] Thiamine HCl (Vitamin B-1) 100 mg PO DAILY [facility] Stop: 02/25/20 21:24 Last Admin: 01/27/20 10:41 Dose: Not Given Documented by: [id number] Admin: 01/26/20 22:13 Dose: 100 mg Documented by: [id number] Umeclidinium/Vilanterol (Anoro Ellipta 62.5/25 Mcg Inh) 1 puffs INH HS [facility] Stop: 02/25/20 21:59 Last Admin: 01/28/20 20:59 Dose: Not Given Documented by: [id number] Admin: 01/27/20 20:59 Dose: Not Given Documented by: [id number] Admin: 01/26/20 22:37 Dose: Not Given Documented by: [id number] Vitamin D (Vitamin D3) 2,000 units PO DAILY [facility] Stop: 02/26/20 08:59 Last Admin: 01/28/20 09:08 Dose: Not Given Documented by: [id number] Admin: 01/27/20 10:41 Dose: Not Given Documented by: [id number] Description This is a 21 electrode EEG with a single channel dedicated to limited EKG. The electrodes were placed in accordance with the International 10-20 system. Interpretation The predominant background activity consists of a fairly well modulated 9 Hz activity, of up to 40 mV in amplitude,seen symmetrically distributed over the posterior head regions bilaterally. This activity attenuates nicely with eye- opening and other alerting procedures. Photic stimulation was performed and elicited no change in the background activity and no abnormal responses were seen. Hyperventilation was not performed. A mild amount of muscle and movement artifact activity contaminated the recording and did not hinder interpretation to any significant degree. Throughout the waking portion of the recording, no focal abnormalities, abnormal slow activity, or potentially epileptogenic discharges are seen. The patient entered the drowsy state and brief periods of stage II sleep with no further activation. In summary, this EEG was normal during wakefulness and sleep. No focal abnormalities, potentially epileptogenic discharges, or abnormal slow activity was seen. Clinical Correlation The abscence of potentially epileptogenic activity does not exclude a seizure disorder, since interictally, EEGs can be normal. Clinical correlation is required. [facility] [place] Procedure Codes Indication for Procedure (1) Seizure: Neurology Neurology: 41338 EEG include record awake & sleepy
--- NOTE | 2020-01-30 10:34 | Neurology Progress Note ---
Date of Service January 30, 2020 Assessment & Plan (1) Alcoholic Korsakoff syndrome: (2) Seizure: (3) Pituitary adenoma: (4) Insomnia: He has presented (3 or 4 times now in the last several weeks) with confusion, altered mental status, paranoia or inability to make good decisions at home. Friends or family are the ones who bring him in because they feel he cannot function well at home on his own. He has access to benzodiazepines and other medications as well as alcohol but it is unknown how much he does or does not take of these medications and how compliant he is with the medications he is supposed to take. In mid December he had a witnessed generalized tonic-clonic seizure once in the ER. He has been on levetiracetam 500 mg twice daily since although I am not certain he was compliant. There was a possible additional seizure or 2 in the evening of January 26, although these were not well described. I cannot be certain that they were actual seizures. Although January 27, he had some paranoia, agitation and strikingly little insight or memory for any events in the previous 24 hours, on January 28, he was quite calm. MRI of the brain with and without contrast, recently, was unremarkable, as have laboratory studies and other testing. An LP was mentioned as a possibility to rule out underlying inflammation but the patient refused that last admission. He likely has an underlying dementia (alcoholic, Korsakoff variant, or otherwise) with fluctuation in cognition due to medication or substance abuse. Apparently has not been using alcohol and he does not have any signs of alcohol withdrawal syndrome currently. Prolonged Benzodiazepine withdrawal cannot entirely be excluded, but he really is showing any withdrawal signs currently. He has had no obvious seizures over the last 48 hours and is tolerating valproic acid well. Apparently he has had some episodes of blank staring for a few seconds followed by going back to speaking. I and the nurse did not witness any of this. EEG this morning was quite normal during wakefulness and light sleep. This does not exclude seizures, particularly on Depakote, but it shows no underlying tendency to have seizures on a regular basis. The Depakote level of 73 is solid, mid therapeutic. Recommendations: 1. It is clear that every time the patient is sent home he is just brought right back to the hospital by family or friends for not functioning. Patient self denies any problems and wants to just go home. This is a significant social service problem and needs to be solved. My opinion is this patient is not safe to go home alone. I think going to [facility], closed dementia unit, is reasonable. 2. An LP could be performed under fluoroscopy but I am not certain that it would add anything to the case and I am not certain the patient would agree to it anyway. Certainly, I have no pressing reason to order an LP today. In addition I see no reason to order a repeat MRI of the brain. 3. Avoid all benzodiazepines and alcohol. 4. Could convert IV Depakote to Depakote ER 500 mg twice daily (checking a trough level in 2 weeks assuming compliance). 5. Keep off levetiracetam and lamotrigine. 6. Formal neuropsychological testing as an outpatient, if he agrees to this. 7. Increase activity as able and consider physical therapy. 8. Caution with neuroleptics as they may prolong the QT interval. Patient is off low-dose Seroquel now. Overall, I spent a total of 35 minutes with this case including review of records, direct evaluation the patient at bedside, and discussion the case with the patient and RN at bedside, and Dr. Cohen including differential diagnosis and treatment options. Subjective Patient feels great and tells me he feels the best he has felt in years. He claims to have slept well last night. Nursing reports no seizure activity or spells in the last 24 hours. The last noted seizure activity was actually January 26. Blood pressure is 105/50. Depakote level this morning was 73. EEG this morning was quite normal with no focal abnormalities, potentially epileptogenic discharges, or abnormal slow activity both wakefulness and light sleep. Physical Exam Physical Exam: Patient is awake and alert. Mood is reasonable and affect is reasonable also. Speech is without aphasia or dysarthria. He is pacing around the room and was on his phone. He is moving his limbs well with symmetrical strength. He has no abnormal involuntary movements noted. Results & Data Vital Signs (Past 12 Hours) Vital Signs Temp Pulse Pulse Resp BP BP Pulse Ox 01/30/20 07:26 68 01/30/20 07:03 36.6 C 62 18 105/50 L 94 01/30/20 01:10 73 01/30/20 00:29 36.5 C 72 18 98/59 L 95 PG Care Time/CCT Total # of Minutes Spent Total Time Spent with Patient: Total time spent is greater than 50% in coordination of care (as documented) at patient's floor/unit and/or counseling patient: Coding Level of Care Code 35817 Subseq Hosp Care Lvl 3 Diagnoses Alcoholic Korsakoff syndrome F10.96 Seizure R56.9 Pituitary adenoma D35.2 Insomnia G47.00 Insomnia type: unspecified Time Spent (min) 35 (1) Insomnia Insomnia type: unspecified Qualified Code(s): G47.00 - Insomnia, unspecified
--- NOTE | 2020-01-30 15:53 | Electrocardiogram Report ---
Test Reason : Blood Pressure : / mmHG Vent. Rate : 062 BPM Atrial Rate : 062 BPM P-R Int : 172 ms QRS Dur : 126 ms QT Int : 476 ms P-R-T Axes : 019 001 150 degrees QTc Int : 483 ms Sinus rhythm with Premature ventricular complexes Non-specific intra-ventricular conduction block Inferior infarct (cited on or before 04-JUN-1995) T wave abnormality, consider lateral ischemia Abnormal ECG When compared with ECG of 29-JAN-2020 06:42, Significant changes have occurred Confirmed by Quirino Shetty ([id number]) on 01/30/2020 3:53:26 PM Referred By: Quirino Hensley Confirmed By:Quirino Shetty
--- NOTE | 2020-01-30 20:25 | Hospitalist Progress Note ---
Date of Service January 30, 2020 Assessment & Plan (1) Impaired decision making: Patient continues to lack capacity to make decisions regarding medications and discharge planning (see subjective for supportive evidence). I believe he or others may be at imminent harm if he is discharged and do not feel he has capacity to make this decision at this time. Involuntary Intervention Request completed as patient stated to nursing staff he wants to leave. Court order applied and approved for patient to remain in the hospital for the next 72 hours until a safe discharge disposition is found. Limited insight into his medical conditions or reason why he is in hospital. (2) AMS (altered mental status): Appreciate neurology and psychiatry help with this complex patient. Patient started on IV Depakote on 01/27 for both seizure prophylaxis and appears t o be helping with his diana in addition. Switch tonight to ER Depakote 500mg BID. 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 EEG normal. I personally suspect his "episodes" that he has had for years are partial seizures as he has never had syncope with them and they occur at increased excitation. Two tonic-clonic seizures witnessed while in hospital (once this admission). 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 Thiamine level pending. Continue treatment with IV thiamine 500mg TID for 3 days then can switch to oral (5) Diana: Much improved even off antipsychotics. However tangential/disorganized speech remains. ?Underlying dementia associated psychosis vs. primary psychiatric monopolor diana previously suppressed by alcohol - either way Rx Depakote as above (mainly for anti-seizure) medication (6) Paranoid delusion: No further paranoia such as the combination of lactose and gluten will kill him. This was not a joking or fly by statement that he made 2 days ago but one he made this persistently and would not eat any food as a result. He is not making any such statements today and tries to walk back and justify that statement he made to me on multiple occasions two days ago without having any real recollection of the event other than what I told him. Possibly paranoia improved with Zyprexa PRN doses and Seroquel given over last two days although QT prolongation limiting use of these and patient willingness also an issue. Therefore Seroquel discontinued and will monitor for worsening delusions or hallucinations. (7) Hallucinations, visual: None noticed while admitted but reports from his long time friend of talking to people who aren't there at home when left alone. Patient reports this was just a misunderstanding (as per multiple other abnormal behaviours he has had). Supports diagnosis of Korsakoff's. (8) Polypharmacy: Unlikely contributory at present. Previous admission felt to be contributory to benzodiazepine use. (9) Elevated troponin: Appreciate cardiology consult. Suspect demand-ischemia (chronically raised troponin), no further workup required. (10) Alcohol abuse: Patient states that he stopped drinking alcohol 3 weeks ago. No withdrawal suspected. (11) CAD (coronary artery disease), samish coronary artery: Continue home medicine apixaban 5 mg p.o. twice daily, atorvastatin 80 mg p.o. every afternoon, clopidogrel 75 mg p.o. every morning, furosemide 60 mg p.o. (reduced to once daily due to hypotension, will monitor for HF), isosorbide mononitrate 60 mg p.o. every morning, losartan 25 mg p.o. nightly, metoprolol 25 mg p.o. nightly, nitroglycerin 0.5 mg as directed PRN, sotalol 80 mg p.o. twice daily, spironolactone 25 mg p.o. every morning. (12) Chronic systolic CHF (congestive heart failure): Patient appears to be euvolemic at this time with reduced dose of lasix due to low blood pressure. (13) Atrial fibrillation: Continue sotalol for rhythm control. NSR on admission EKG. NSR when on residential monitor today. Continue apixaban 5 mg p.o. twice daily. (14) Pre-syncope: Ruled out Suspect these "episodes" are actually partial seizures (15) QT prolongation: 483ms on EKG today Seroquel discontinued Only use Zyprexa PRN if at risk to self or others Continue trazodone. 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 Updated allergy list to reflect true allergic reaction. (17) Insomnia: Continue trazodone as above. Discontinued Seroquel (increased risk of mortality, although I do feel antipsychotics were reducing some of his impulsions such as needing to leave hospital to go to the [employer] store). No vital signs to be taken at midnight or 4am to aid in patient recovery. Will also keep patient in same room if possible. (18) DVT prophylaxis: Continue apixaban 5mg BID Admission and Anticipated Discharge Date Admission Date: January 27, 2020 Subjective Patient reports feeling well. Asking to get out of hospital multiple times today but he is calm and able to sit down when we have this conversation. He asks me how did the sleeping test go. By this he is referring to the trial of sleeping well on trazodone alone without antipsychotics. As per nursing notes he took the trazodone at 00:28. Hourly rounding reports throughout the night show he was awake but this is denied by the patient and I am unclear on the accuracy of this charting. He has improved since admission with reduced diana and tangential speech but this still exists and he is unable to answer any question without going of onto reasonably wide tangents (confirmed this is abnormal for him). He reports a time when he "tried to explain a theory" to friends at different times and recognizes that they thought he was looney as he spoke to one of them for 8 hours. But he maintains he felt fine during this therefore he does not think it is an issue and believes it was more of a probably with how the words. He continues to concentrate on things "in real time" and how others have interpreted what he has done or said without recognizing this as an illness. At times he appears to accept these events are diana but then he is unable to link this idea to medications or a potential medical problem, and minutes later he will go back to how it is just how others are interpreting him. He continues to have short term memory loss which he recognizes and admits to but doesn't acknowledge any safety risk with this. He admits to leaving his stove on and forgetting about it. Interestingly he is aware he may do this and therefore has moved flammable objects away from the stove and has left the stove on for an hour on purpose just to see if anything would happen and nothing did therefore he does not feel this is a safety issue. He is unable to tell me at what point he would feel someone with short term memory loss would be a risk to themselves other than saying he is at a very mild end of the scale of dementia and compares this to his step-mother when she had advanced dementia. He is able to retain information for short periods of time and partial bits of information for longer times (over days) but will confabulate the rest and the confabulation becomes his complete belief of what happened and he has never acknowledges he could be doing this despite multiple accounts from others. He is still acting very impulsive compared to his usual self as per his friend's in the room who knows him well. She is concerned he was not managing at home and that he may drive if he goes home (his license is removed after the seizure but apparently he has been driving since this). Once he has confabulated the missing details of certain events he persists with these incorrect memories therefore limiting his insight into his medical conditions and judgement of safety. He may also be apathetic regarding his safety than his baseline self as per friends (but this is harder to sports activities foul judge). He does not appear apathetic to other interests. Review of Systems Review of Systems: All systems reviewed & are unremarkable except as noted in HPI & below Physical Exam Constitutional: WD/WN, vitals as above no acute distress Eyes: + anicteric sclerae; normal pupil size Respiratory: normal respiratory effort, lungs clear to auscultation Cardiovascular: Rate/Rhythm: regular rate and regular rhythm Heart Sounds: no murmur Extremities: + pedal edema (trace b/l) Musculoskeletal: no cyanosis or clubbing, extremities motor strength 5/5 Neurologic: moves all extremities and awake; not confused Psychiatric: Orientation: alert and oriented x 3 Apperance: appropriately dressed Eye Contact: good eye contact Motor Behavior: no abnormal motor movements Speech: normal rate/rhythm/volume of speech (no pressure) Affect: euthymic affect Mood: no irritable mood Thought Process: + thought blocking (occasional, but improved), + circumstantial thought process (moving more circumstantial than tangential with improvement), + tangential thought process, + looseness of associations and + confabulations; + thought process not clear or coherent Thought Content: + preoccupation (needing to get a new phone with a stylus) and reality based without delusions; not paranoid and no delusions Suicidal Thoughts: denies suicidal thoughts Homicidal Thoughts: denies homicidal thoughts Hallucinations: no auditory hallucinations and no visual hallucinations Cognition: recent memory grossly intact (jumbled, confabulated, innaccurate), remote memory grossly intact and attention grossly intact Insight: + impaired insight Judgement: + impaired judgement Results & Data ([facility]) Vital Signs (Past 12 Hours) Vital Signs Temp Pulse Pulse Resp BP Pulse Ox 01/30/20 19:06 36.8 C 71 19 113/73 96 01/30/20 15:17 72 01/30/20 11:09 36.3 C L 65 19 101/70 97 PG Care Time/CCT Total # of Minutes Spent Total Time Spent: 55 Total Time Spent with Patient: Total time spent is greater than 50% in coordination of care (as documented) at patient's floor/unit and/or counseling patient: Coding Level of Care Code 39059 Subseq Hosp Care Lvl 3 Diagnoses Impaired decision making Z78.9 AMS (altered mental status) R41.82 Altered mental status type: unspecified Seizure R56.9 Alcoholic Korsakoff syndrome F10.96 Diana F30.9 Paranoid delusion F22 Hallucinations, visual R44.1 Polypharmacy Z79.899 Elevated troponin R79.89 Alcohol abuse F10.10 CAD (coronary artery disease), samish coronary artery I25.118 [place] vs. 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 transplanted heart: samish heart Associated angina: with stable angina Qualified Code(s): I25.118 - Atherosclerotic heart disease of samish coronary artery with other forms of angina pectoris (3) Atrial fibrillation Atrial fibrillation type: unspecified Qualified Code(s): I48.91 - Unspecified atrial fibrillation (4) Insomnia Insomnia type: unspecified Qualified Code(s): G47.00 - Insomnia, unspecified
[2020-01-30] MEDS: ATORVASTATIN 40 MG TAB PO SCH (21:50)
[2020-01-30] MEDS: DIVALPROEX EXTENDED RELEASE 500 MG TAB PO SCH (21:50)
[2020-01-30] MEDS: METOPROLOL SUCC 25MG EXT REL TAB PO SCH (21:51)
[2020-01-30] MEDS: FLUTICASONE/UMECLIDIN/VILANTER INH SCH (21:52)
[2020-01-30] MEDS: LOSARTAN POTASSIUM 25 MG TAB PO SCH (21:52)
[2020-01-31] MEDS: TRAZODONE HCL 50 MG TAB PO SCH (01:32)
[2020-01-31] MEDS: SOTALOL HCL 80 MG TAB PO SCH ×2 (07:44→20:34)
[2020-01-31] MEDS: FUROSEMIDE 20 MG TAB PO SCH (07:44)
[2020-01-31] MEDS: DIVALPROEX EXTENDED RELEASE 500 MG TAB PO SCH ×2 (07:45→20:32)
[2020-01-31] MEDS: APIXABAN 5 MG TABLET PO SCH ×2 (07:45→20:33)
[2020-01-31] MEDS: PANTOprazole 40 MG TAB PO SCH ×2 (07:45→20:35)
[2020-01-31] MEDS: FOLIC ACID 1 MG TAB PO SCH (07:45)
[2020-01-31] MEDS: ISOSORBIDE MONO EXTENDED REL 60 MG TABCR PO SCH (07:45)
[2020-01-31] MEDS: CLOPIDOGREL BISULFATE 75 MG TAB PO SCH (07:46)
[2020-01-31] MEDS: SPIRONOLACTONE 25 MG TAB PO SCH (07:46)
[2020-01-31] MEDS: THIAMINE HCL 500 MG in SODIUM CHLORIDE 0.9% 50 ML IV SCH ×3 (10:11→20:32)
[2020-01-31] MEDS: LOSARTAN POTASSIUM 25 MG TAB PO SCH (20:34)
[2020-01-31] MEDS: ATORVASTATIN 40 MG TAB PO SCH (20:35)
[2020-01-31] MEDS: METOPROLOL SUCC 25MG EXT REL TAB PO SCH (20:39)
[2020-01-31] MEDS: FLUTICASONE/UMECLIDIN/VILANTER INH SCH (20:55)
--- NOTE | 2020-01-31 22:52 | Hospitalist Progress Note ---
Date of Service January 31, 2020 Assessment & Plan (1) Impaired decision making: Patient continues to lack capacity to make decisions regarding medications and discharge planning (see subjective for supportive evidence). I believe he or others may be at imminent harm if he is discharged and do not feel he has capacity to make this decision at this time. Involuntary Intervention Request completed and court order applied for and approved on 01/29. Patient must remain in the hospital for the next 72 hours unless a safe discharge disposition is found. Limited insight into his medical conditions or reason why he is in hospital. (2) AMS (altered mental status): Appreciate neurology and psychiatry help with this complex patient. Patient started on IV Depakote on 01/27 for both seizure prophylaxis and appears to be helping with his diana in addition. Switched to ER Depakote 500mg BID on 01/29. 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 transfer to another room vs. change from IV to PO depakote. Plan to try and avoid antipsychotics if possible however these may have been helping him but appreciate psychiatry note that he has no underlying schizophrenia therefore this is more psychosis related to dementia therefore PRN dosing will be continued. (3) Seizure: Discussed with Dr Vaz previously. EEG normal. I personally suspect his "episodes" that he has had for years are partial seizures as he has never had syncope with them and they occur at increased excitation. Two tonic-clonic seizures witnessed while in hospital (once this admission). No episodes since switching to PO depakote. Will continue to monitor. 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 Thiamine level pending. No significant response to thiamine IV. Will switch to PO but suspect his memory issues are not reversible. Continue PO thiamine 100mg TID (5) Diana: Worse today. ?Underlying dementia associated psychosis vs. primary psychiatric monopolor diana previously suppressed by alcohol - either way Rx Depakote as above (mainly for anti-seizure) medication (6) Paranoid delusion: None currently. Previously related to food killing him on prior occasions (see previous notes). Possible paranoia regarding names of staff but suspect this is more tangential speech. Possible paranoia regarding medication and need for Dr Newberry to approve everything (this waxes and wanes throughout the admission). (7) Hallucinations, visual: None noticed while admitted but reports from his long time friend of talking to people who aren't there at home when left alone. Patient reports this was just a misunderstanding (as per multiple other abnormal behaviours he has had). Supports diagnosis of Korsakoff's. (8) Polypharmacy: Unlikely contributory at present. Previous admission felt to be contributory to benzodiazepine use. (9) Elevated troponin: Appreciate cardiology consult. Suspect demand-ischemia (chronically raised troponin), no further workup required. (10) Alcohol abuse: Patient states that he stopped drinking alcohol 3 weeks ago. No withdrawal suspected. (11) CAD (coronary artery disease), [place] coronary artery: Continue home medicine apixaban 5 mg p.o. twice daily, atorvastatin 80 mg p.o. every afternoon, clopidogrel 75 mg p.o. every morning, furosemide 60 mg p.o. (reduced to once daily due to hypotension, will monitor for HF), isosorbide mononitrate 60 mg p.o. every morning, losartan 25 mg p.o. nightly, metoprolol 25 mg p.o. nightly, nitroglycerin 0.5 mg as directed PRN, sotalol 80 mg p.o. twice daily, spironolactone 25 mg p.o. every morning. (12) Chronic systolic CHF (congestive heart failure): Patient appears to be euvolemic at this time with reduced dose of lasix due to low blood pressure. (13) Atrial fibrillation: Continue sotalol for rhythm control. NSR on admission EKG. NSR when on time study technician today. Continue apixaban 5 mg p.o. twice daily. (14) Pre-syncope: Ruled out Suspect these "episodes" are actually partial seizures (15) QT prolongation: 483ms on EKG 01/29 Seroquel discontinued Only use Zyprexa PRN if at risk to self or others Continue trazodone. 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 Updated allergy list to reflect true allergic reaction. (17) Insomnia: Continue trazodone as above. Discontinued Seroquel (increased risk of mortality, although I do feel antipsychotics were reducing some of his impulsions/preoccupations such as needing to leave hospital to go to the [employer] store). No vital signs to be taken at midnight or 4am to aid in patient recovery). Transferred patient. Single room. Please do not move patient rooms if possible. (18) DVT prophylaxis: Continue apixaban 5mg BID Admission and Anticipated Discharge Date Admission Date: January 27, 2020 Subjective Patient aware he has a court date in [place] on Sunday. Does not appear aware of what it is about. He has been more agitated, tangential and preoccupied with the clocks and "pen" names of staff. Continues to have memories of everyday he has been in hospital but these are limited and he continues to believe in fabricated memories of parts he does not remember or that do not make sense to him. He continues to lack insight into how his memory and tangential speech, preoccupations and diana type talking is effecting him or others. He has never been able to accept that his long time friends may be right about him that he is not doing well. Review of Systems Review of Systems: All systems reviewed & are unremarkable except as noted in HPI & below Physical Exam Constitutional: WD/WN, vitals as above no acute distress Respiratory: normal respiratory effort, lungs clear to auscultation Cardiovascular: Rate/Rhythm: regular rate and regular rhythm Heart Sounds: no murmur Gastrointestinal (Abdomen): Inspection/Auscultation: normal bowel sounds Percussion/Palpation: abdomen soft; abdomen nontender Musculoskeletal: no cyanosis or clubbing, extremities motor strength 5/5 Neurologic: moves all extremities and awake; not confused Psychiatric: Orientation: alert and oriented x 3 Apperance: appropriately dressed Eye Contact: + fair eye contact Motor Behavior: + psychomotor agitation (much more moving around the room today) Speech: normal rate/rhythm/volume of speech (no pressure) Affect: euthymic affect Mood: no irritable mood Thought Process: + thought blocking (occasional), + tangential thought process, + looseness of associations and + confabulations (regular); + thought process not clear or coherent Thought Content: + preoccupation (clocks and "pen" names) and reality based without delusions; not paranoid and no delusions Suicidal Thoughts: denies suicidal thoughts Homicidal Thoughts: denies homicidal thoughts Hallucinations: no auditory hallucinations and no visual hallucinations Cognition: recent memory grossly intact (jumbled, confabulated, innaccurate), remote memory grossly intact and language grossly intact; + attention not intact (poor attention) Insight: + impaired insight Judgement: + impaired judgement Results & Data ([facility]) Vital Signs (Past 12 Hours) Vital Signs Temp Pulse Resp BP Pulse Ox 01/31/20 22:00 36.7 C 71 20 109/69 97 01/31/20 15:44 36.6 C 66 18 131/78 98 PG Care Time/CCT Total # of Minutes Spent Total Time Spent with Patient: Total time spent is greater than 50% in coordination of care (as documented) at patient's floor/unit and/or counseling patient: Coding Level of Care Code 92459 Subseq Hosp Care Lvl 2 Diagnoses Impaired decision making Z78.9 AMS (altered mental status) R41.82 Altered mental status type: unspecified Seizure R56.9 Alcoholic Korsakoff syndrome F10.96 Diana F30.9 Paranoid delusion F22 Hallucinations, visual R44.1 Polypharmacy Z79.899 Elevated troponin R79.89 Alcohol abuse F10.10 CAD (coronary artery disease), [place] coronary artery I25.118 [place] vs. 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 transplanted heart: [place] heart Associated angina: with stable angina Qualified Code(s): I25.118 - Atherosclerotic heart disease of [place] coronary artery with other forms of angina pectoris (3) Atrial fibrillation Atrial fibrillation type: unspecified Qualified Code(s): I48.91 - Unspecified atrial fibrillation (4) Insomnia Insomnia type: unspecified Qualified Code(s): G47.00 - Insomnia, unspecified
[2020-02-01] MEDS: TRAZODONE HCL 50 MG TAB PO SCH ×2 (00:16→20:33)
[2020-02-01 05:28] LABS: Basophils # (auto) 0.03 K/uL (0-0.2); Basophils % (auto) 0.4 %; Eosinophils % (auto) 2.7 %; Hematocrit (blood only) 38.8 % (42-52); Hemoglobin 12.9 g/dL (14.0-18.0); Immature Granulocytes # (auto) 0.02 K/uL (0.00-0.02); Immature Granulocytes % (auto) 0.3 %; Lymphocytes # (auto) 1.27 K/uL (1.2-3.4); Lymphocytes % (auto) 17.3 %; Mean Corpuscular Hemoglobin 28.2 pg (25-34); Mean Corpuscular Hgb Conc 33.2 g/dL (32-36); Mean Corpuscular Volume 84.7 fL (80-100); Mean Platelet Volume 10.5 fL (7.4-10.4); Monocytes # (auto) 0.86 K/uL (0.11-0.59); Monocytes % (auto) 11.7 %; Neutrophils # (auto) 4.94 K/uL (1.4-6.5); Neutrophils % (auto) 67.6 %; Platelet Count 153 K/uL (130-400); RDW Coefficient of Variation 18.8 % (11.5-14.5); RDW Standard Deviation 58.6 fL (36.4-46.3); Red Blood Count 4.58 M/uL (4.7-6.1); White Blood Count 7.32 K/uL (4.8-10.8)
[2020-02-01 05:48] LABS: Albumin Level 3.4 gm/dl (3.4-5.0); BUN Creatinine Ratio 17.9 (10-20); Calcium 9.2 mg/dl (8.5-10.1); Creatinine Clr Calc Pharmacy 49.4 ml/min; Est GFR (African American) 64.1; Est GFR (Non-African American) 55.3; Potassium 3.3 mmol/L (3.5-5.1)
[2020-02-01 05:53] LABS: Albumin Globulin Ratio 0.8 (0.9-2); Bilirubin,Total 0.5 mg/dl (0.2-1); Globulin 4.2 gm/dl (2.5-4.0); Total Protein 7.6 gm/dl (6.4-8.2)
[2020-02-01] MEDS ORDERED: THIAMINE HCL 100 MG TAB PO SCH (09:00)
[2020-02-01] MEDS: CLOPIDOGREL BISULFATE 75 MG TAB PO SCH (09:00)
[2020-02-01] MEDS ORDERED: POTASSIUM CHLORIDE 20 MEQ TABCR PO SCH (09:00)
[2020-02-01] MEDS: SPIRONOLACTONE 25 MG TAB PO SCH (09:01)
[2020-02-01] MEDS: ISOSORBIDE MONO EXTENDED REL 60 MG TABCR PO SCH (09:01)
[2020-02-01] MEDS: SOTALOL HCL 80 MG TAB PO SCH ×2 (09:02→20:02)
[2020-02-01] MEDS: FOLIC ACID 1 MG TAB PO SCH (09:02)
[2020-02-01] MEDS: PANTOprazole 40 MG TAB PO SCH ×2 (09:02→20:00)
[2020-02-01] MEDS: APIXABAN 5 MG TABLET PO SCH ×2 (09:02→20:02)
[2020-02-01] MEDS: FUROSEMIDE 20 MG TAB PO SCH (09:02)
[2020-02-01] MEDS: DIVALPROEX EXTENDED RELEASE 500 MG TAB PO SCH ×2 (09:03→20:03)
[2020-02-01] MEDS ORDERED: SPIRONOLACTONE 25 MG TAB PO ONE (13:17)
[2020-02-01] MEDS ORDERED: PHENobarbital sodium 130 MG/ML VIAL IV SCH (14:00)
[2020-02-01] MEDS: PHENOBARBITAL SODIUM IV SCH ×4 (14:27→23:43)
--- NOTE | 2020-02-01 14:29 | Hospitalist Progress Note ---
Date of Service February 01, 2020 Assessment & Plan (1) Impaired decision making: Patient continues to lack capacity to make decisions regarding medications and discharge planning (see subjective for supportive evidence). I believe he or others may be at imminent harm if he is discharged and do not feel he has capacity to make this decision at this time. Involuntary Intervention Request completed and court order applied for and approved on 01/29. Patient must remain in the hospital for the next 72 hours (until Sunday) unless a safe discharge disposition is found. Severely limited insight today into his medical conditions or reason why he is in hospital. (2) AMS (altered mental status): Since thiamine level normal discussed case with multiple other hospitalists, neurology and psychiatry. Possibly having prolonged/refractory delirium tremens after alcohol withdrawal. This diagnosis would make much more sense with the acuity and concurrent seizures. Noted previous success with phenobarbital for this diagnosis. Antipsychotics lower seizure threshold therefore not recommended. Alternative explanations: Partial/generalized seizures Chronic alcohol use Korsakoff still a possibility but less likely given thiamine level. Previously undiagnosed dementia (MOCA 22/30) with acute psychosis (psychosis now appears resolved) No underlying psychiatric disorder suspected Re-prescribed lorazepam for acute agitation/aggression to avoid antipsychotic use with above diagnosis. (3) Delirium tremens: Prolonged/refractory delirium tremens or delirium after withdrawal appears to be the most likely diagnosis. Reports of phenobarbital can help if this is the problem. Discussed with Dr Vaz and will start a lower dose 60mg IV QID. (4) Seizure: Discussed with Dr Vaz regarding phenobarbital use for prolonged delirium tremens with alcohol withdrawal. EEG normal. x2 tonic-clonic seizures. Suspect this is related to alcohol withdrawal. No episodes since switching to PO. Will continue to monitor. Rx Appreciate neurology recommendations Continue Depakote 500mg ER 500mg BID Start on phenobarbital 60mg IV Q6H 01/31 (5) Alcoholic Korsakoff syndrome: Thiamine level normal therefore makes this diagnosis less likely No significant response to thiamine IV. Will switch to PO 100mg daily. (6) Diana: Worse today. ?Underlying dementia associated psychosis vs. delirium following alcohol withdrawal. Rx depakote - getting worse the last 2 days therefore suspect this was not working Now on phenobarbital and will watch for response over next 1-2 days (7) Paranoid delusion: Current paranoid delusions much worse with concern people are surveilling him. (8) Hallucinations, visual: Noticed patient talking possibly to himself in the room today. Sitting at the window crying. Unclear if he is seeing or hearing people, but this is denied by the patient. More just paranoid delusions at present. (9) Polypharmacy: Unlikely contributory at present. Previous admission felt to be contributory to benzodiazepine use. (10) Elevated troponin: Appreciate cardiology consult. Suspect demand-ischemia (chronically raised troponin), no further workup required. (11) Alcohol abuse: Patient states that he stopped drinking alcohol 3 weeks ago. No active withdrawal suspected, but possibly having prolonged delirium following withdrawal. (12) CAD (coronary artery disease), [place] coronary artery: Continue home medicine apixaban 5 mg p.o. twice daily, atorvastatin 80 mg p.o. every afternoon, clopidogrel 75 mg p.o. every morning, furosemide 60 mg p.o. (reduced to once daily due to hypotension, will monitor for HF), isosorbide mononitrate 60 mg p.o. every morning, losartan 25 mg p.o. nightly, metoprolol 25 mg p.o. nightly, nitroglycerin 0.5 mg as directed PRN, sotalol 80 mg p.o. twice daily, spironolactone 25 mg p.o. every morning. (13) Chronic systolic CHF (congestive heart failure): Very difficult to assess fluid status in his current state. Leg appear more swollen than they have been. On reduced doses of lasix due to prior hypotension. Will increase his spironolactone to 50mg PO. (14) Atrial fibrillation: Continue sotalol for rhythm control. NSR on admission EKG. Appears to still be in NSR on radial pulse palpation with frequent skipped beats. Continue apixaban 5 mg p.o. twice daily. (15) Pre-syncope: Ruled out Possible these "episodes" are actually partial seizures as no longer having them on depakote. (16) QT prolongation: Now resolved. Antipsychotics now discontinued as lower seizure threshold. However suspect they have been useful earlier in admission for his delusions. Continue trazodone at night -> consider swapping to seroquel if able to convince patient to take this and stable from seizure point of view. 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 Updated allergy list to reflect true allergic reaction. (18) Insomnia: Continue trazodone as above. Discontinued Seroquel (increased risk of mortality, although I do feel antipsychotics were reducing some of his impulsions/preoccupations such as needing to leave hospital to go to the [employer] store). No vital signs to be taken at midnight or 4am to aid in patient recovery). Please do not move patient rooms if possible, possible change in environment why he is worse currently +/- antipsychotics possibly helping. (19) DVT prophylaxis: Continue apixaban 5mg BID Admission and Anticipated Discharge Date Admission Date: January 27, 2020 Subjective Patient appears worse today. Tangential speech without coming back to original questions. Lots of preoccupations with time. Delusions of surveillance. Only able to concentrate on writing right in front of him and explaining it to me and asking me to feel the seal. He is surrounded by multiple pieces of paper where he is writing down all his tangential thoughts. Aware of the court order date tomorrow. Much less able to sit down and talk - constantly getting back up. Concern he jeopardized his court hearing tomorrow as he managed to convince two people he did not know that he was someone else. Very occupied by the time, "real time". Discussed care with Williams his friend at bedside. Unable to contact his POA "Josemanuel" today by phone. Review of Systems Review of Systems: All systems reviewed & are unremarkable except as noted in HPI & below Physical Exam Constitutional: WD/WN, vitals as above no acute distress Eyes: + anicteric sclerae; normal pupil size Respiratory: normal respiratory effort, lungs clear to auscultation (patient getting out of breath when getting agitated.) Cardiovascular: Rate/Rhythm: regular rate and regular rhythm (occasional skipped beats) Heart Sounds: no murmur Extremities: + pedal edema (1+ b/l) Gastrointestinal (Abdomen): Inspection/Auscultation: normal bowel sounds Percussion/Palpation: abdomen soft; abdomen nontender Musculoskeletal: no cyanosis or clubbing, extremities motor strength 5/5 Skin: no rashes, warm and dry Neurologic: moves all extremities, awake and + confused Psychiatric: Orientation: alert and oriented x 3 Apperance: appropriately dressed Eye Contact: + fair eye contact Motor Behavior: + psychomotor agitation (unable to sit down for any length of time) Speech: + pressured speech Affect: + labile affect Thought Process: + thought blocking (occasional), + tangential thought process, + flight of ideas, + looseness of associations and + confabulations (regular); + thought process not clear or coherent Thought Content: + preoccupation ("real time", Dr Newberry), + paranoid (surveillence, people listening in) and + delusions Suicidal Thoughts: denies suicidal thoughts Homicidal Thoughts: denies homicidal thoughts Hallucinations: no auditory hallucinations and no visual hallucinations Cognition: recent memory grossly intact (jumbled, confabulated, innaccurate but remembers events), remote memory grossly intact and language grossly intact; + attention not intact (poor attention) Insight: + impaired insight Judgement: + impaired judgement Results & Data ([facility]) Vital Signs (Past 12 Hours) Vital Signs Temp Pulse Resp BP Pulse Ox 08 09:00 36.7 C 60 20 135/84 97 PG Care Time/CCT Total # of Minutes Spent Total Time Spent: 50 Total Time Spent with Patient: Total time spent is greater than 50% in coordination of care (as documented) at patient's floor/unit and/or counseling patient: Coding Level of Care Code 84807 Subseq Hosp Care Lvl 3 Diagnoses Impaired decision making Z78.9 AMS (altered mental status) R41.82 Altered mental status type: unspecified Delirium tremens F10.231 Seizure R56.9 Alcoholic Korsakoff syndrome F10.96 Diana F30.9 Paranoid delusion F22 Hallucinations, visual R44.1 Polypharmacy Z79.899 Elevated troponin R79.89 Alcohol abuse F10.10 CAD (coronary artery disease), [place] coronary artery I25.118 Associated angina: with stable angina [place] vs. 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 transplanted heart: [place] heart Qualified Code(s): I25.118 - Atherosclerotic heart disease of [place] coronary artery with other forms of angina pectoris (4) AMS (altered mental status) Altered mental status type: unspecified Qualified Code(s): R41.82 - Altered mental status, unspecified
[2020-02-01] MEDS ORDERED: LORazepam 1 MG/2 ML VIAL IV PRN (14:45)
[2020-02-01] MEDS ORDERED: Nursing to Pharmacy Communication ONE (18:06)
[2020-02-01] MEDS: ATORVASTATIN 40 MG TAB PO SCH (20:00)
[2020-02-01] MEDS: METOPROLOL SUCC 25MG EXT REL TAB PO SCH (20:01)
[2020-02-01] MEDS: LOSARTAN POTASSIUM 25 MG TAB PO SCH (20:03)
[2020-02-01] MEDS: FLUTICASONE/UMECLIDIN/VILANTER INH SCH (20:41)
[2020-02-02] MEDS: PHENOBARBITAL SODIUM IV SCH ×3 (05:43→18:33)
[2020-02-02] MEDS: SPIRONOLACTONE 25 MG TAB PO SCH (08:05)
[2020-02-02] MEDS: SOTALOL HCL 80 MG TAB PO SCH ×2 (08:06→21:42)
[2020-02-02] MEDS: DIVALPROEX EXTENDED RELEASE 500 MG TAB PO SCH ×2 (08:07→21:42)
[2020-02-02] MEDS: THIAMINE HCL 100 MG TAB PO SCH (08:07)
[2020-02-02] MEDS: APIXABAN 5 MG TABLET PO SCH ×2 (08:07→21:42)
[2020-02-02] MEDS: PANTOprazole 40 MG TAB PO SCH ×2 (08:07→22:05)
[2020-02-02] MEDS: ISOSORBIDE MONO EXTENDED REL 60 MG TABCR PO SCH (08:07)
[2020-02-02] MEDS: FUROSEMIDE 20 MG TAB PO SCH (08:07)
[2020-02-02] MEDS: FOLIC ACID 1 MG TAB PO SCH (08:07)
[2020-02-02] MEDS: CLOPIDOGREL BISULFATE 75 MG TAB PO SCH (08:07)
--- NOTE | 2020-02-02 18:21 | Hospitalist Progress Note ---
Date of Service February 02, 2020 Assessment & Plan (1) Impaired decision making: Court hearing in this regard this afternoonI was on the phone for approximately 25 minutes answering questions for his hearing, to the best of my ability, under oath. I discussed the working diagnoses of polypharmacy and a degree of an alcohol-related dementia being of strong concern, as well as the patient's current track record being highly concerning for his ability to take care of himself at home. (2) AMS (altered mental status): Most concerning would be polypharmacy and/or an alcohol-related dementia syndrome that is not textbook Wernicke-Korsakoff Continue to follow closely. (3) Delirium tremens: Prolonged/refractory delirium tremens or delirium after withdrawal appears possible. Reports of phenobarbital can help if this is the problem. Trial of phenobarbital 60mg IV QID does not appear to be helping, low threshold to dc. (4) Seizure: seizure occurred in context of EtOH off/on and ambien - probably provoked. currently on phenobarb and keppra - low threshold to stop. 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 continue thiamine 100mg po daily. (6) Diana: ?diana vs psychosis vs agitation superimposed on baseline dementia process. (7) Paranoid delusion: unable to glean today, but per previous hospitalist showed paranoid delusions with concern people are surveilling him. (8) Hallucinations, visual: per 01/31 note prior hospitalist: "Noticed patient talking possibly to himself in the room today. Sitting at the window crying. Unclear if he is seeing or hearing people, but this is denied by the patient. More just paranoid delusions at present." (9) Polypharmacy: Hard to tell what he has at home, what he has run out of at home, and what he is actually taking at home. He has been in a structured environment now for the better part of a week, therefore currently polypharmacy would not be at play, but I do wonder how much this plays a role in his erratic behaviors out of the hospital. (10) Elevated troponin: Appreciate cardiology consult. Suspect demand-ischemia (chronically raised troponin), no further workup required. (11) Alcohol abuse: Patient previously stated that he stopped drinking alcohol 3 weeks ago. No active withdrawal suspected, but possibly having prolonged delirium following withdrawalsee above. (12) CAD (coronary artery disease), [place] coronary artery: Continue home medicine apixaban 5 mg p.o. twice daily, atorvastatin 80 mg p.o. every afternoon, clopidogrel 75 mg p.o. every morning, furosemide 60 mg p.o. (reduced to once daily due to hypotension, will monitor for HF), isosorbide mononitrate 60 mg p.o. every morning, losartan 25 mg p.o. nightly, metoprolol 25 mg p.o. nightly, nitroglycerin 0.5 mg as directed PRN, sotalol 80 mg p.o. twice daily, spironolactone 25 mg p.o. every morning. (13) Chronic systolic CHF (congestive heart failure): As best I can glean, clinically he appears to be euvolemic. (14) Atrial fibrillation: Continue sotalol for rhythm control. Continue apixaban 5 mg p.o. twice daily. (15) Pre-syncope: No current issues (16) QT prolongation: Now resolved. Antipsychotics now discontinued as lower seizure threshold. However suspect they have been useful earlier in admission for his delusions. Continue trazodone at night -> consider swapping to seroquel if able to convince patient to take this and stable from seizure point of view. 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 (18) Insomnia: Continue trazodone as above. Discontinued Seroquel (increased risk of mortality, although I do feel antipsychotics were reducing some of his impulsions/preoccupations such as needing to leave hospital to go to the [employer] store). No vital signs to be taken at midnight or 4am to aid in patient recovery). Please do not move patient rooms if possible, possible change in environment why he is worse currently +/- antipsychotics possibly helping. (19) DVT prophylaxis: Continue apixaban 5mg BID Admission and Anticipated Discharge Date Admission Date: January 27, 2020 Subjective When I enter the room, he is on the phone asking somebody something about if they work with [employer]. When he sees me he and his that phone call, but is mostly fixated on when he is going to be able to get over to his appointment at [address] Newberry (at approximately 1030 when I see him). When I try to discuss his situation, the court hearing, making sure he is safe, etc., he gets progressively more agitated asking me to leave. Whenever I discussed that our team would be able to help set up follow-up with Dr. Newberry, he gets even more agitated to where he is not quite yelling at me to leave the room. Later in the day one of my partners notes that Dr. Newberry approached him and frustration about the patient calling his office somewhere on the order of 15 times a day. Review of Systems Review of Systems: Unobtainable due to cognitive status Cannot really obtain true HPI or review of systems due to his progressive agitation with me Physical Exam Physical Exam: In general he is awake he seems alert, but he gets progressively agitated where initially he was pleasant to the end of our visit (which was maybe 5 to 10 minutes) he is almost but not quite yelling at me to leave the room. HEENT normocephalic atraumatic mucous membranes moist. Breathing is unlabored no accessory muscle use good effort. Skin shows no rashes no pallor or icterus. Neuro shows cranial nerves II through XII be grossly intact, he shows no gross motor deficits. Obviously full exam was not able to be undertaken due to his agitation. Results & Data ([facility]) Vital Signs (Past 12 Hours) Vital Signs Temp Pulse Resp BP Pulse Ox 02/02/20 15:02 97.5 F L 66 20 114/69 95 02/02/20 07:38 97.7 F 64 20 115/71 97 PG Care Time/CCT Total # of Minutes Spent Total Time Spent with Patient: Total time spent is greater than 50% in coordination of care (as documented) at patient's floor/unit and/or counseling patient: Coding Level of Care Code 67533 Subseq Hosp Care Lvl 3 Diagnoses Impaired decision making Z78.9 AMS (altered mental status) R41.82 Altered mental status type: unspecified Delirium tremens F10.231 Seizure R56.9 Alcoholic Korsakoff syndrome F10.96 Diana F30.9 Paranoid delusion F22 Hallucinations, visual R44.1 Polypharmacy Z79.899 Elevated troponin R79.89 Alcohol abuse F10.10 CAD (coronary artery disease), [place] coronary artery I25.118 [place] vs. 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 transplanted heart: [place] heart Associated angina: with stable angina Qualified Code(s): I25.118 - Atherosclerotic heart disease of [place] coronary artery with other forms of angina pectoris (3) Atrial fibrillation Atrial fibrillation type: unspecified Qualified Code(s): I48.91 - Unspecified atrial fibrillation (4) Insomnia Insomnia type: unspecified Qualified Code(s): G47.00 - Insomnia, unspecified
[2020-02-02] MEDS: TRAZODONE HCL 50 MG TAB PO SCH (21:41)
[2020-02-02] MEDS: ATORVASTATIN 40 MG TAB PO SCH (21:42)
[2020-02-02] MEDS: METOPROLOL SUCC 25MG EXT REL TAB PO SCH (21:42)
[2020-02-02] MEDS: LOSARTAN POTASSIUM 25 MG TAB PO SCH (21:42)
[2020-02-02] MEDS: FLUTICASONE/UMECLIDIN/VILANTER INH SCH (21:43)
[2020-02-03] MEDS: PHENOBARBITAL SODIUM IV SCH ×4 (00:59→17:15)
[2020-02-03] MEDS: SPIRONOLACTONE 25 MG TAB PO SCH (11:47)
[2020-02-03] MEDS: DIVALPROEX EXTENDED RELEASE 500 MG TAB PO SCH ×2 (11:47→22:08)
[2020-02-03] MEDS: SOTALOL HCL 80 MG TAB PO SCH ×2 (11:47→22:08)
[2020-02-03] MEDS: ISOSORBIDE MONO EXTENDED REL 60 MG TABCR PO SCH (11:48)
[2020-02-03] MEDS: APIXABAN 5 MG TABLET PO SCH ×2 (11:48→22:08)
[2020-02-03] MEDS: FOLIC ACID 1 MG TAB PO SCH (11:48)
[2020-02-03] MEDS: FUROSEMIDE 20 MG TAB PO SCH (11:49)
[2020-02-03] MEDS: CLOPIDOGREL BISULFATE 75 MG TAB PO SCH (11:49)
[2020-02-03] MEDS: THIAMINE HCL 100 MG TAB PO SCH (11:50)
[2020-02-03] MEDS: PANTOprazole 40 MG TAB PO SCH ×2 (13:36→22:08)
--- NOTE | 2020-02-03 19:28 | Hospitalist Progress Note ---
Date of Service February 03, 2020 Assessment & Plan (1) Impaired decision making: acute related to polypharmacy vs chronic w dementia (alcohol or otherwise) superimposed on baseline high functioning -safe environment, closely monitored meds for next few weeks - if mentation clears then would support polypharmacy, if doesn't, unfortunately would be concerning for new declining baseline w dementia syndrome. (2) AMS (altered mental status): Most concerning would be polypharmacy and/or an alcohol-related dementia syndrome that is not textbook Wernicke-Korsakoff Continue to follow closely. see above (3) Delirium tremens: Prolonged/refractory delirium tremens or delirium after withdrawal appears possible, but did not seem to get much benefit from phenobarb - will stop (if he gets more agitated in next ~48-72hrs then would resume, but this is unlikely) (4) Seizure: seizure occurred in context of EtOH off/on and ambien - probably provoked. none since. on depakote now. 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 continue thiamine 100mg po daily. (6) Cedric: ?cedric vs psychosis vs agitation superimposed on baseline dementia process. continue to follow (7) Paranoid delusion: unable to glean today, but per previous hospitalist showed paranoid delusions with concern people are surveilling him. today's main delusions seemed to center on research with [employer]. (8) Hallucinations, visual: per 01/31 note prior hospitalist: "Noticed patient talking possibly to himself in the room today. Sitting at the window crying. Unclear if he is seeing or hearing people, but this is denied by the patient. More just paranoid delusions at present." (9) Polypharmacy: Hard to tell what he has at home, what he has run out of at home, and what he is actually taking at home. He has been in a structured environment now for the better part of a week, therefore currently polypharmacy would not be at play, but I do wonder how much this plays a role in his erratic behaviors out of the hospital. see above (10) Elevated troponin: Appreciate cardiology consult. Suspect demand-ischemia (chronically raised troponin), no further workup required. (11) Alcohol abuse: Patient previously stated that he stopped drinking alcohol 3 weeks ago. No active withdrawal suspected, but possibly having prolonged delirium following withdrawalsee above. (12) CAD (coronary artery disease), [place] coronary artery: Continue home medicine apixaban 5 mg p.o. twice daily, atorvastatin 80 mg p.o. every afternoon, clopidogrel 75 mg p.o. every morning, furosemide 60 mg p.o. (reduced to once daily due to hypotension, will monitor for HF), isosorbide mononitrate 60 mg p.o. every morning, losartan 25 mg p.o. nightly, metoprolol 25 mg p.o. nightly, nitroglycerin 0.5 mg as directed PRN, sotalol 80 mg p.o. twice daily, spironolactone 25 mg p.o. every morning. (13) Chronic systolic CHF (congestive heart failure): As best I can glean, clinically he appears to be euvolemic. (14) Atrial fibrillation: Continue sotalol for rhythm control. Continue apixaban 5 mg p.o. twice daily. (15) Pre-syncope: No current issues (16) QT prolongation: Now resolved. Antipsychotics now discontinued as lower seizure threshold. However suspect they have been useful earlier in admission for his delusions. Continue trazodone at night -> consider swapping to seroquel if able to convince patient to take this and stable from seizure point of view. 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 (18) Insomnia: Continue trazodone as above. Discontinued Seroquel (increased risk of mortality, although I do feel antipsychotics were reducing some of his impulsions/preoccupations such as needing to leave hospital to go to the [employer] store). No vital signs to be taken at midnight or 4am to aid in patient recovery). Please do not move patient rooms if possible, possible change in environment why he is worse currently +/- antipsychotics possibly helping. (19) DVT prophylaxis: Continue apixaban 5mg BID Admission and Anticipated Discharge Date Admission Date: January 27, 2020 Subjective start time appox 310p, end time approx 4p ~till 345 in the room with pt then time in hallway with friend no notable complaints. allowed pt to speak freely, nearly uninterrupted, for the better part of 40mins. not a normal "give and take" of doctor/patient interaction - pt had long somewhat tangential conversation - first part of conversation heavily discussing dispo - thinks [facility] is out, but notes that he has a friend oswaldo who has a place at [facility] and oswaldo wants to move to [facility] and might want to sell him the place or share the place in [facility] and he's near the top of the list for [facility] anyway, he just has to change from being on the list to activating it. 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 also when he is speaking and i can't quite figure out what he is referencing and tell him i couldn't follow due to using undefined pronouns, he quickly mentions he's doing a research project on this as well and then goes onto a small tangent of improper grammar utilization that bothers him and other improper grammar that he catches himself using frequently. leslie enters room, then he keeps talking about getting to [facility] for another few minutes, abruptly stops talking and jaw drops/silently gasps like he's in pain, says "it's emotional" - repeats this ~3 times then sits on the bed. abruptly starts talking about no cure for end stage emphysema and the medical management for his aflutter. then talks about his yelling match with malka on sunday seems loosely apologetic but also wonders why malka blocked his calls, then circles back to looking at placement at [facility]. leslie discusses situation in the [place] with me with pt's knowledge/no protests raised, she explains their longstanding relationship - her and mr mitchell have been long friends, pt has no local family so they've basically become family - and recently he's been acting extremely bizarrely and not safe at home, concerned about what he is/isn't doing with medications, concerned about his safety/ability to function. 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 as it relates to rashaad she notes a few weeks ago he was in the store fixated on something to the point that the employees asked him to leave and threatened to call police. she also expresses concern about dispo mostly afraid he'll be sent home again. discussed with case management - still hoping for H placement but nothing concrete yet Review of Systems 2 Review of Systems: All systems reviewed & are unremarkable except as noted in HPI & below Physical Exam Physical Exam: gen awake pleasant mental status as above no distress. heent nc at mmm. breathing unlabored no accessory muscles good effort. skin no rashes no pallor or icterus Results & Data ([facility]) Vital Signs (Past 12 Hours) Vital Signs Temp Pulse Resp BP Pulse Ox 02/03/20 18:56 97.9 F 73 19 109/72 92 02/03/20 15:51 97.7 F 65 19 107/70 95 PG Care Time/CCT Total # of Minutes Spent Total Time Spent with Patient: Total time spent is greater than 50% in coordination of care (as documented) at patient's floor/unit and/or counseling patient: Coding Level of Care Code 15398 Subseq Hosp Care Lvl 2 Diagnoses Impaired decision making Z78.9 AMS (altered mental status) R41.82 Altered mental status type: unspecified Delirium tremens F10.231 Seizure R56.9 Alcoholic Korsakoff syndrome F10.96 Cedric F30.9 Paranoid delusion F22 Hallucinations, visual R44.1 Polypharmacy Z79.899 Elevated troponin R79.89 Alcohol abuse F10.10 CAD (coronary artery disease), [place] coronary artery I25.118 Associated angina: with stable angina [place] vs. 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 transplanted heart: [place] heart Qualified Code(s): I25.118 - Atherosclerotic heart disease of [place] coronary artery with other forms of angina pectoris (4) AMS (altered mental status) Altered mental status type: unspecified Qualified Code(s): R41.82 - Altered mental status, unspecified
--- NOTE | 2020-02-03 19:51 | Billing Data ---
Date of Service February 03, 2020 Coding Level of Care Code 93873 Prolonged Care (int'l)
[2020-02-03] MEDS: METOPROLOL SUCC 25MG EXT REL TAB PO SCH (22:08)
[2020-02-03] MEDS: LOSARTAN POTASSIUM 25 MG TAB PO SCH (22:08)
[2020-02-03] MEDS: ATORVASTATIN 40 MG TAB PO SCH (22:08)
[2020-02-03] MEDS: FLUTICASONE/UMECLIDIN/VILANTER INH SCH (22:09)
[2020-02-04] MEDS: PHENOBARBITAL SODIUM IV SCH ×4 (01:23→18:58)
[2020-02-04] MEDS: TRAZODONE HCL 50 MG TAB PO SCH (01:23)
[2020-02-04] MEDS: SOTALOL HCL 80 MG TAB PO SCH ×2 (09:20→20:29)
[2020-02-04] MEDS: SPIRONOLACTONE 25 MG TAB PO SCH (09:20)
[2020-02-04] MEDS: FUROSEMIDE 20 MG TAB PO SCH (09:21)
[2020-02-04] MEDS: CLOPIDOGREL BISULFATE 75 MG TAB PO SCH (09:21)
[2020-02-04] MEDS: FOLIC ACID 1 MG TAB PO SCH (09:21)
[2020-02-04] MEDS: DIVALPROEX EXTENDED RELEASE 500 MG TAB PO SCH ×2 (09:21→20:29)
[2020-02-04] MEDS: APIXABAN 5 MG TABLET PO SCH ×2 (09:21→20:29)
[2020-02-04] MEDS: THIAMINE HCL 100 MG TAB PO SCH (09:21)
[2020-02-04] MEDS: PANTOprazole 40 MG TAB PO SCH ×2 (09:21→20:29)
[2020-02-04] MEDS: ISOSORBIDE MONO EXTENDED REL 60 MG TABCR PO SCH (09:21)
--- NOTE | 2020-02-04 17:58 | Hospitalist Progress Note ---
Date of Service February 04, 2020 Assessment & Plan (1) Impaired decision making: acute related to polypharmacy vs chronic w dementia (alcohol or otherwise) superimposed on baseline high functioning -safe environment, closely monitored meds for next few weeks - if mentation clears then would support polypharmacy, if doesn't, unfortunately would be concerning for new declining baseline w dementia syndrome. -First time I am seeing patient, he still appears confused. diifficult to ascertain if he is improving (02/03) (2) AMS (altered mental status): Most concerning would be polypharmacy and/or an alcohol-related dementia syndrome that is not textbook Wernicke-Korsakoff Continue to follow closely. see above (3) Delirium tremens: Prolonged/refractory delirium tremens or delirium after withdrawal appears possible, but did not seem to get much benefit from phenobarb - will stop No longer appears in DT (02/03) (4) Seizure: seizure occurred in context of EtOH off/on and ambien - probably provoked. none since. on depakote now. 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 continue thiamine 100mg po daily. (6) Diana: ?diana vs psychosis vs agitation superimposed on baseline dementia process. continue to follow (7) Paranoid delusion: unable to glean today, but per previous hospitalist showed paranoid delusions with concern people are surveilling him. today's main delusions seemed to center on research with [employer]. (8) Hallucinations, visual: per 01/31 note prior hospitalist: "Noticed patient talking possibly to himself in the room today. Sitting at the window crying. Unclear if he is seeing or hearing people, but this is denied by the patient. More just paranoid delusions at present." (9) Polypharmacy: Hard to tell what he has at home, what he has run out of at home, and what he is actually taking at home. He has been in a structured environment now for the better part of a week, therefore currently polypharmacy would not be at play, but I do wonder how much this plays a role in his erratic behaviors out of the hospital. see above (10) Elevated troponin: Appreciate cardiology consult. Suspect demand-ischemia (chronically raised troponin), no further workup required. (11) Alcohol abuse: Patient previously stated that he stopped drinking alcohol 3 weeks ago. No active withdrawal suspected, but possibly having prolonged delirium following withdrawalsee above. (12) CAD (coronary artery disease), [place] coronary artery: Continue home medicine apixaban 5 mg p.o. twice daily, atorvastatin 80 mg p.o. every afternoon, clopidogrel 75 mg p.o. every morning, furosemide 60 mg p.o. (reduced to once daily due to hypotension, will monitor for HF), isosorbide mononitrate 60 mg p.o. every morning, losartan 25 mg p.o. nightly, metoprolol 25 mg p.o. nightly, nitroglycerin 0.5 mg as directed PRN, sotalol 80 mg p.o. twice daily, spironolactone 25 mg p.o. every morning. (13) Chronic systolic CHF (congestive heart failure): As best I can glean, clinically he appears to be euvolemic. (14) Atrial fibrillation: Continue sotalol for rhythm control. Continue apixaban 5 mg p.o. twice daily. (15) Pre-syncope: No current issues (16) QT prolongation: Now resolved. Antipsychotics now discontinued as lower seizure threshold. However suspect they have been useful earlier in admission for his delusions. Continue trazodone at night -> consider swapping to seroquel if able to convince patient to take this and stable from seizure point of view. 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 (18) Insomnia: Continue trazodone as above. Discontinued Seroquel (increased risk of mortality, although I do feel antipsychotics were reducing some of his impulsions/preoccupations such as needing to leave hospital to go to the [employer] store). No vital signs to be taken at midnight or 4am to aid in patient recovery). Please do not move patient rooms if possible, possible change in environment why he is worse currently +/- antipsychotics possibly helping. (19) DVT prophylaxis: Continue apixaban 5mg BID Admission and Anticipated Discharge Date Admission Date: January 27, 2020 Subjective Had extensive conversation with patient. Patient states he has a court hearing tomorrow and has to be discharged before 9am tomorrow. He states he is going home. He reports having discussed with the family preservation caseworker that this is the case. Patient states he is not confused and is not sure why the health staff feels this way. Review of Systems Review of Systems: All systems reviewed & are unremarkable except as noted in HPI & below Physical Exam Constitutional: WD/WN, vitals as above Eyes: PERRL, conjunctivae normal, anicteric sclerae Neck: trachea midline, no thyromegaly Respiratory: normal respiratory effort, lungs clear to auscultation Cardiovascular: RRR, no murmur, no edema Gastrointestinal (Abdomen): normal bowel sounds, soft, nontender, no hepatosplenomegaly Neurologic: PERRL, EOMI, accommodation nl, no face palsy, no dysarthria Psychiatric: A+Ox3, euthymic affect Lymphatic: no cervical or axillary lymphadenopathy Results & Data ([facility]) Vital Signs (Past 12 Hours) Vital Signs Temp Pulse Resp BP Pulse Ox 02/04/20 15:11 36.4 C L 68 18 111/72 96 02/04/20 07:06 36.4 C L 59 L 18 101/65 96 PG Care Time/CCT Total # of Minutes Spent Total Time Spent with Patient: Total time spent is greater than 50% in coordination of care (as documented) at patient's floor/unit and/or counseling patient: Coding Level of Care Code 22880 Subseq Hosp Care Lvl 3 Diagnoses Impaired decision making Z78.9 AMS (altered mental status) R41.82 Altered mental status type: unspecified Delirium tremens F10.231 Seizure R56.9 Alcoholic Korsakoff syndrome F10.96 Diana F30.9 Paranoid delusion F22 Hallucinations, visual R44.1 Polypharmacy Z79.899 Elevated troponin R79.89 Alcohol abuse F10.10 CAD (coronary artery disease), [place] coronary artery I25.118 Associated angina: with stable angina [place] vs. 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 transplanted heart: [place] heart Qualified Code(s): I25.118 - Atherosclerotic heart disease of [place] coronary artery with other forms of angina pectoris (4) AMS (altered mental status) Altered mental status type: unspecified Qualified Code(s): R41.82 - Altered mental status, unspecified
[2020-02-04] MEDS: ATORVASTATIN 40 MG TAB PO SCH (20:29)
[2020-02-04] MEDS: LOSARTAN POTASSIUM 25 MG TAB PO SCH (20:29)
[2020-02-04] MEDS: FLUTICASONE/UMECLIDIN/VILANTER INH SCH (20:29)
[2020-02-04] MEDS: METOPROLOL SUCC 25MG EXT REL TAB PO SCH (20:29)
[2020-02-05] MEDS: PHENOBARBITAL SODIUM IV SCH ×5 (01:16→17:29)
[2020-02-05] MEDS: TRAZODONE HCL 50 MG TAB PO SCH ×2 (01:17→21:59)
[2020-02-05] MEDS: FOLIC ACID 1 MG TAB PO SCH (08:36)
[2020-02-05] MEDS: ISOSORBIDE MONO EXTENDED REL 60 MG TABCR PO SCH (08:36)
[2020-02-05] MEDS: APIXABAN 5 MG TABLET PO SCH ×2 (08:36→21:50)
[2020-02-05] MEDS: SOTALOL HCL 80 MG TAB PO SCH ×2 (08:36→21:51)
[2020-02-05] MEDS: SPIRONOLACTONE 25 MG TAB PO SCH (08:36)
[2020-02-05] MEDS: DIVALPROEX EXTENDED RELEASE 500 MG TAB PO SCH ×2 (08:36→21:49)
[2020-02-05] MEDS: FUROSEMIDE 20 MG TAB PO SCH (08:36)
[2020-02-05] MEDS: PANTOprazole 40 MG TAB PO SCH ×2 (08:37→21:50)
[2020-02-05] MEDS: CLOPIDOGREL BISULFATE 75 MG TAB PO SCH (08:37)
[2020-02-05] MEDS: THIAMINE HCL 100 MG TAB PO SCH (08:37)
[2020-02-05 09:06] LABS: Hematocrit (blood only) 38.1 % (42-52); Hemoglobin 12.6 g/dL (14.0-18.0); Mean Corpuscular Hemoglobin 28.3 pg (25-34); Mean Corpuscular Hgb Conc 33.1 g/dL (32-36); Mean Corpuscular Volume 85.6 fL (80-100); Platelet Count 128 K/uL (130-400); RDW Standard Deviation 60.3 fL (36.4-46.3); Red Blood Count 4.45 M/uL (4.7-6.1); White Blood Count 7.13 K/uL (4.8-10.8)
[2020-02-05 09:40] LABS: BUN Creatinine Ratio 24.2 (10-20); Calcium 9.2 mg/dl (8.5-10.1); Creatinine Clr Calc Pharmacy 64.6 ml/min; Est GFR (African American) 88.8; Est GFR (Non-African American) 76.6; Magnesium 1.6 mg/dl (1.8-2.4); Phosphorus 2.1 mg/dl (2.5-4.9); Potassium 4.1 mmol/L (3.5-5.1)
[2020-02-05] MEDS: POT PHOSPHATE MONOBASIC W/ SOD TAB PO SCH ×2 (17:29→21:50)
[2020-02-05] MEDS: ATORVASTATIN 40 MG TAB PO SCH (21:49)
[2020-02-05] MEDS: MAGNESIUM OXIDE 400 MG TAB PO SCH (21:49)
[2020-02-05] MEDS: LOSARTAN POTASSIUM 25 MG TAB PO SCH (21:50)
[2020-02-05] MEDS: FLUTICASONE/UMECLIDIN/VILANTER INH SCH (21:50)
[2020-02-05] MEDS: METOPROLOL SUCC 25MG EXT REL TAB PO SCH (21:50)
--- NOTE | 2020-02-05 22:55 | Hospitalist Progress Note ---
Date of Service February 05, 2020 Assessment & Plan (1) Impaired decision making: acute related to polypharmacy vs chronic w dementia (alcohol or otherwise) superimposed on baseline high functioning -safe environment, closely monitored meds for next few weeks - if mentation clears then would support polypharmacy, if doesn't, unfortunately would be concerning for new declining baseline w dementia syndrome. -patient remains confused. Patient does not appear to be improving in regards to his dementia. (2) AMS (altered mental status): Most concerning would be polypharmacy and/or an alcohol-related dementia syndrome that is not textbook Wernicke-Korsakoff Continue to follow closely. see above (3) Delirium tremens: Prolonged/refractory delirium tremens or delirium after withdrawal appears possible, but did not seem to get much benefit from phenobarb - will stop No longer appears in DT (02/03) (4) Seizure: seizure occurred in context of EtOH off/on and ambien - probably provoked. none since. on depakote now. Patient is also on phenobarbital. 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 continue thiamine 100mg po daily. (6) Diana: ?diana vs psychosis vs agitation superimposed on baseline dementia process. continue to follow (7) Paranoid delusion: unable to glean today, but per previous hospitalist showed paranoid delusions with concern people are surveilling him. today's main delusions seemed to center on upgrading telephone. (8) Hallucinations, visual: per 01/31 note prior hospitalist: "Noticed patient talking possibly to himself in the room today. Sitting at the window crying. Unclear if he is seeing or hearing people, but this is denied by the patient. More just paranoid delusions at present." (9) Polypharmacy: Hard to tell what he has at home, what he has run out of at home, and what he is actually taking at home. He has been in a structured environment now for the better part of a week, therefore currently polypharmacy would not be at play, but I do wonder how much this plays a role in his erratic behaviors out of the hospital. see above (10) Elevated troponin: Appreciate cardiology consult. Suspect demand-ischemia (chronically raised troponin), no further workup required. (11) Alcohol abuse: Patient previously stated that he stopped drinking alcohol 3 weeks ago. No active withdrawal suspected, but possibly having prolonged delirium following withdrawalsee above. (12) CAD (coronary artery disease), [place] coronary artery: Continue home medicine apixaban 5 mg p.o. twice daily, atorvastatin 80 mg p.o. every afternoon, clopidogrel 75 mg p.o. every morning, furosemide 60 mg p.o. (reduced to once daily due to hypotension, will monitor for HF), isosorbide mononitrate 60 mg p.o. every morning, losartan 25 mg p.o. nightly, metoprolol 25 mg p.o. nightly, nitroglycerin 0.5 mg as directed PRN, sotalol 80 mg p.o. twice daily, spironolactone 25 mg p.o. every morning. (13) Chronic systolic CHF (congestive heart failure): As best I can glean, clinically he appears to be euvolemic. (14) Atrial fibrillation: Continue sotalol for rhythm control. Continue apixaban 5 mg p.o. twice daily. (15) Pre-syncope: No current issues (16) QT prolongation: Now resolved. Antipsychotics now discontinued as lower seizure threshold. However suspect they have been useful earlier in admission for his delusions. Continue trazodone at night -> consider swapping to seroquel if able to convince patient to take this and stable from seizure point of view. 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 (18) Insomnia: Continue trazodone as above. Discontinued Seroquel (increased risk of mortality, although I do feel antipsychotics were reducing some of his impulsions/preoccupations such as needing to leave hospital to go to the [employer] store). No vital signs to be taken at midnight or 4am to aid in patient recovery). Please do not move patient rooms if possible, possible change in environment why he is worse currently +/- antipsychotics possibly helping. (19) DVT prophylaxis: Continue apixaban 5mg BID Admission and Anticipated Discharge Date Admission Date: January 27, 2020 Subjective Patient reports no new complaints. He is stating that he will pay for the telephone system in the hospital and upgrade it. "He wants caller ID in every room." Review of Systems Review of Systems: All systems reviewed & are unremarkable except as noted in HPI & below Physical Exam Constitutional: WD/WN, vitals as above Eyes: PERRL, conjunctivae normal, anicteric sclerae Neck: trachea midline, no thyromegaly Respiratory: normal respiratory effort, lungs clear to auscultation Cardiovascular: RRR, no murmur, no edema Gastrointestinal (Abdomen): normal bowel sounds, soft, nontender, no hepatosplenomegaly Neurologic: PERRL, EOMI, accommodation nl, no face palsy, no dysarthria Psychiatric: A+Ox3, euthymic affect Lymphatic: no cervical or axillary lymphadenopathy Results & Data ([facility]) Vital Signs (Past 12 Hours) Vital Signs Temp Pulse Resp BP BP Pulse Ox 02/05/20 21:49 71 104/71 02/05/20 15:01 36.6 C 63 18 96/64 L 96 PG Care Time/CCT Total # of Minutes Spent Total Time Spent with Patient: Total time spent is greater than 50% in coordination of care (as documented) at patient's floor/unit and/or counseling patient: Coding Level of Care Code 73895 Subseq Hosp Care Lvl 2 Diagnoses Impaired decision making Z78.9 AMS (altered mental status) R41.82 Altered mental status type: unspecified Delirium tremens F10.231 Seizure R56.9 Alcoholic Korsakoff syndrome F10.96 Diana F30.9 Paranoid delusion F22 Hallucinations, visual R44.1 Polypharmacy Z79.899 Elevated troponin R79.89 Alcohol abuse F10.10 CAD (coronary artery disease), [place] coronary artery I25.118 Associated angina: with stable angina [place] vs. 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 transplanted heart: [place] heart Qualified Code(s): I25.118 - Atherosclerotic heart disease of [place] coronary artery with other forms of angina pectoris (4) AMS (altered mental status) Altered mental status type: unspecified Qualified Code(s): R41.82 - Altered mental status, unspecified
[2020-02-06] MEDS: PHENOBARBITAL SODIUM IV SCH ×2 (01:19→07:05)
--- NOTE | 2020-02-06 06:56 | Communication Note ---
Date of Service: February 06, 2020 Patient has been consistently refusing phenobarbital, when addressed patient clearly understands the risks of not taking the medication and that it may pr ovoke a seizure. I have placed this medication on hold for now.
[2020-02-06] MEDS: APIXABAN 5 MG TABLET PO SCH ×2 (08:11→20:20)
[2020-02-06] MEDS: PANTOprazole 40 MG TAB PO SCH ×2 (08:11→20:20)
[2020-02-06] MEDS: CLOPIDOGREL BISULFATE 75 MG TAB PO SCH (08:11)
[2020-02-06] MEDS: MAGNESIUM OXIDE 400 MG TAB PO SCH ×2 (08:12→20:20)
[2020-02-06] MEDS: ISOSORBIDE MONO EXTENDED REL 60 MG TABCR PO SCH (08:12)
[2020-02-06] MEDS: POT PHOSPHATE MONOBASIC W/ SOD TAB PO SCH ×4 (08:12→20:20)
[2020-02-06] MEDS: DIVALPROEX EXTENDED RELEASE 500 MG TAB PO SCH ×2 (08:12→20:20)
[2020-02-06] MEDS: FUROSEMIDE 20 MG TAB PO SCH (08:13)
[2020-02-06] MEDS: SPIRONOLACTONE 25 MG TAB PO SCH (08:13)
[2020-02-06] MEDS: THIAMINE HCL 100 MG TAB PO SCH (08:14)
[2020-02-06] MEDS: FOLIC ACID 1 MG TAB PO SCH (08:14)
[2020-02-06] MEDS: SOTALOL HCL 80 MG TAB PO SCH ×2 (08:14→20:19)
[2020-02-06] MEDS: ATORVASTATIN 40 MG TAB PO SCH (20:18)
[2020-02-06] MEDS: LOSARTAN POTASSIUM 25 MG TAB PO SCH (20:18)
[2020-02-06] MEDS: METOPROLOL SUCC 25MG EXT REL TAB PO SCH (20:20)
[2020-02-06] MEDS: FLUTICASONE/UMECLIDIN/VILANTER INH SCH (20:21)
[2020-02-06] MEDS: TRAZODONE HCL 50 MG TAB PO SCH (20:26)
--- NOTE | 2020-02-06 23:16 | Hospitalist Progress Note ---
Date of Service February 06, 2020 Assessment & Plan (1) Impaired decision making: acute related to polypharmacy vs chronic w dementia (alcohol or otherwise) superimposed on baseline high functioning -safe environment, closely monitored meds for next few weeks - if mentation clears then would support polypharmacy, if doesn't, unfortunately would be concerning for new declining baseline w dementia syndrome. -patient remains confused. Patient does not appear to be improving in regards to his dementia. No change on 02/05 (2) AMS (altered mental status): Most concerning would be polypharmacy and/or an alcohol-related dementia syndrome that is not textbook Wernicke-Korsakoff Continue to follow closely. see above (3) Delirium tremens: Prolonged/refractory delirium tremens or delirium after withdrawal appears possible, but did not seem to get much benefit from phenobarb - will stop No longer appears in DT (02/03) (4) Seizure: seizure occurred in context of EtOH off/on and ambien - probably provoked. none since. on depakote now. Patient is also on phenobarbital. 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 continue thiamine 100mg po daily. (6) Diana: ?diana vs psychosis vs agitation superimposed on baseline dementia process. continue to follow (7) Paranoid delusion: unable to glean today, but per previous hospitalist showed paranoid delusions with concern people are surveilling him. today's main delusions seemed to center on upgrading telephone. (8) Hallucinations, visual: per 01/31 note prior hospitalist: "Noticed patient talking possibly to himself in the room today. Sitting at the window crying. Unclear if he is seeing or hearing people, but this is denied by the patient. More just paranoid delusions at present." (9) Polypharmacy: Hard to tell what he has at home, what he has run out of at home, and what he is actually taking at home. He has been in a structured environment now for the better part of a week, therefore currently polypharmacy would not be at play, but I do wonder how much this plays a role in his erratic behaviors out of the hospital. see above (10) Elevated troponin: Appreciate cardiology consult. Suspect demand-ischemia (chronically raised troponin), no further workup required. (11) Alcohol abuse: Patient previously stated that he stopped drinking alcohol 3 weeks ago. No active withdrawal suspected, but possibly having prolonged delirium following withdrawalsee above. (12) CAD (coronary artery disease), [place] coronary artery: Continue home medicine apixaban 5 mg p.o. twice daily, atorvastatin 80 mg p.o. every afternoon, clopidogrel 75 mg p.o. every morning, furosemide 60 mg p.o. (reduced to once daily due to hypotension, will monitor for HF), isosorbide mononitrate 60 mg p.o. every morning, losartan 25 mg p.o. nightly, metoprolol 25 mg p.o. nightly, nitroglycerin 0.5 mg as directed PRN, sotalol 80 mg p.o. twice daily, spironolactone 25 mg p.o. every morning. (13) Chronic systolic CHF (congestive heart failure): As best I can glean, clinically he appears to be euvolemic. (14) Atrial fibrillation: Continue sotalol for rhythm control. Continue apixaban 5 mg p.o. twice daily. (15) Pre-syncope: No current issues (16) QT prolongation: Now resolved. Antipsychotics now discontinued as lower seizure threshold. However suspect they have been useful earlier in admission for his delusions. Continue trazodone at night -> consider swapping to seroquel if able to convince patient to take this and stable from seizure point of view. 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 (18) Insomnia: Continue trazodone as above. Discontinued Seroquel (increased risk of mortality, although I do feel antipsychotics were reducing some of his impulsions/preoccupations such as needing to leave hospital to go to the [employer] store). No vital signs to be taken at midnight or 4am to aid in patient recovery). Please do not move patient rooms if possible, possible change in environment why he is worse currently +/- antipsychotics possibly helping. (19) DVT prophylaxis: Continue apixaban 5mg BID Admission and Anticipated Discharge Date Admission Date: January 27, 2020 Subjective Patient has no new complaints. Review of Systems Review of Systems: All systems reviewed & are unremarkable except as noted in HPI & below Physical Exam Constitutional: WD/WN, vitals as above Eyes: PERRL, conjunctivae normal, anicteric sclerae Neck: trachea midline, no thyromegaly Respiratory: normal respiratory effort, lungs clear to auscultation Cardiovascular: RRR, no murmur, no edema Gastrointestinal (Abdomen): normal bowel sounds, soft, nontender, no hepatosplenomegaly Neurologic: PERRL, EOMI, accommodation nl, no face palsy, no dysarthria Psychiatric: A+Ox3, euthymic affect Lymphatic: no cervical or axillary lymphadenopathy Results & Data ([facility]) Vital Signs (Past 12 Hours) Vital Signs Temp Pulse Resp BP Pulse Ox 02/06/20 22:57 36.9 C 70 20 110/84 96 02/06/20 20:13 68 116/77 02/06/20 15:03 36.8 C 68 20 102/66 98 PG Care Time/CCT Total # of Minutes Spent Total Time Spent with Patient: Total time spent is greater than 50% in coordination of care (as documented) at patient's floor/unit and/or counseling patient: Coding Level of Care Code 06837 Subseq Hosp Care Lvl 1 Diagnoses Impaired decision making Z78.9 AMS (altered mental status) R41.82 Altered mental status type: unspecified Delirium tremens F10.231 Seizure R56.9 Alcoholic Korsakoff syndrome F10.96 Diana F30.9 Paranoid delusion F22 Hallucinations, visual R44.1 Polypharmacy Z79.899 Elevated troponin R79.89 Alcohol abuse F10.10 CAD (coronary artery disease), [place] coronary artery I25.118 Associated angina: with stable angina [place] vs. 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 transplanted heart: [place] heart Qualified Code(s): I25.118 - Atherosclerotic heart disease of [place] coronary artery with other forms of angina pectoris (4) AMS (altered mental status) Altered mental status type: unspecified Qualified Code(s): R41.82 - Altered mental status, unspecified
[2020-02-07] MEDS: TRAZODONE HCL 50 MG TAB PO SCH ×2 (01:23→22:08)
[2020-02-07] MEDS: CLOPIDOGREL BISULFATE 75 MG TAB PO SCH (08:18)
[2020-02-07] MEDS: ISOSORBIDE MONO EXTENDED REL 60 MG TABCR PO SCH (08:18)
[2020-02-07] MEDS: SPIRONOLACTONE 25 MG TAB PO SCH (08:18)
[2020-02-07] MEDS: PANTOprazole 40 MG TAB PO SCH ×2 (08:18→22:08)
[2020-02-07] MEDS: FOLIC ACID 1 MG TAB PO SCH (08:19)
[2020-02-07] MEDS: DIVALPROEX EXTENDED RELEASE 500 MG TAB PO SCH ×2 (08:19→22:08)
[2020-02-07] MEDS: SOTALOL HCL 80 MG TAB PO SCH ×2 (08:19→22:08)
[2020-02-07] MEDS: MAGNESIUM OXIDE 400 MG TAB PO SCH ×2 (08:19→22:09)
[2020-02-07] MEDS: APIXABAN 5 MG TABLET PO SCH ×2 (08:19→22:08)
[2020-02-07] MEDS: POT PHOSPHATE MONOBASIC W/ SOD TAB PO SCH ×2 (08:20→12:46)
[2020-02-07] MEDS: FUROSEMIDE 20 MG TAB PO SCH (08:20)
[2020-02-07] MEDS: THIAMINE HCL 100 MG TAB PO SCH (08:20)
[2020-02-07] MEDS: FLUTICASONE/UMECLIDIN/VILANTER INH SCH (22:09)
[2020-02-07] MEDS: METOPROLOL SUCC 25MG EXT REL TAB PO SCH (22:09)
[2020-02-07] MEDS: ATORVASTATIN 40 MG TAB PO SCH (22:09)
[2020-02-07] MEDS: LOSARTAN POTASSIUM 25 MG TAB PO SCH (22:09)
--- NOTE | 2020-02-07 22:19 | Hospitalist Progress Note ---
Date of Service February 07, 2020 Assessment & Plan (1) Impaired decision making: acute related to polypharmacy vs chronic w dementia (alcohol or otherwise) superimposed on baseline high functioning -safe environment, closely monitored meds for next few weeks - if mentation clears then would support polypharmacy, if doesn't, unfortunately would be concerning for new declining baseline w dementia syndrome. -Patient appears better today, able to carry a conversation, but did not remember me. Patient does not appear to be improving in regards to his dementia. No significant change on 02/06 (2) AMS (altered mental status): Most concerning would be polypharmacy and/or an alcohol-related dementia syndrome that is not textbook Wernicke-Korsakoff Continue to follow closely. see above (3) Delirium tremens: Prolonged/refractory delirium tremens or delirium after withdrawal appears possible, but did not seem to get much benefit from phenobarb - will stop No longer appears in DT (02/03) (4) Seizure: seizure occurred in context of EtOH off/on and ambien - probably provoked. none since. on depakote now. Patient is also on phenobarbital. 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 continue thiamine 100mg po daily. (6) Diana: ?diana vs psychosis vs agitation superimposed on baseline dementia process. continue to follow (7) Paranoid delusion: unable to glean today, but per previous hospitalist showed paranoid delusions with concern people are surveilling him. today's main delusions seemed to center on upgrading telephone. (8) Hallucinations, visual: per 01/31 note prior hospitalist: "Noticed patient talking possibly to himself in the room today. Sitting at the window crying. Unclear if he is seeing or hearing people, but this is denied by the patient. More just paranoid delusions at present." (9) Polypharmacy: Hard to tell what he has at home, what he has run out of at home, and what he is actually taking at home. He has been in a structured environment now for the better part of a week, therefore currently polypharmacy would not be at play, but I do wonder how much this plays a role in his erratic behaviors out of the hospital. see above (10) Elevated troponin: Appreciate cardiology consult. Suspect demand-ischemia (chronically raised troponin), no further workup required. (11) Alcohol abuse: Patient previously stated that he stopped drinking alcohol 3 weeks ago. No active withdrawal suspected, but possibly having prolonged delirium following withdrawalsee above. (12) CAD (coronary artery disease), [place] coronary artery: Continue home medicine apixaban 5 mg p.o. twice daily, atorvastatin 80 mg p.o. every afternoon, clopidogrel 75 mg p.o. every morning, furosemide 60 mg p.o. (reduced to once daily due to hypotension, will monitor for HF), isosorbide mononitrate 60 mg p.o. every morning, losartan 25 mg p.o. nightly, metoprolol 25 mg p.o. nightly, nitroglycerin 0.5 mg as directed PRN, sotalol 80 mg p.o. twice daily, spironolactone 25 mg p.o. every morning. (13) Chronic systolic CHF (congestive heart failure): As best I can glean, clinically he appears to be euvolemic. (14) Atrial fibrillation: Continue sotalol for rhythm control. Continue apixaban 5 mg p.o. twice daily. (15) Pre-syncope: No current issues (16) QT prolongation: Now resolved. Antipsychotics now discontinued as lower seizure threshold. However suspect they have been useful earlier in admission for his delusions. Continue trazodone at night -> consider swapping to seroquel if able to convince patient to take this and stable from seizure point of view. 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 (18) Insomnia: Continue trazodone as above. Discontinued Seroquel (increased risk of mortality, although I do feel antipsychotics were reducing some of his impulsions/preoccupations such as needing to leave hospital to go to the [employer] store). No vital signs to be taken at midnight or 4am to aid in patient recovery). Please do not move patient rooms if possible, possible change in environment why he is worse currently +/- antipsychotics possibly helping. (19) DVT prophylaxis: Continue apixaban 5mg BID Admission and Anticipated Discharge Date Admission Date: January 27, 2020 Subjective 75 yo male reports no new symptoms. Review of Systems Review of Systems: All systems reviewed & are unremarkable except as noted in HPI & below Physical Exam Physical Exam: Constitutional: WD/WN, vitals as above Eyes: PERRL, conjunctivae normal, anicteric sclerae Neck: trachea midline, no thyromegaly Respiratory: normal respiratory effort, lungs clear to auscultation Cardiovascular: RRR, no murmur, no edema Gastrointestinal (Abdomen): normal bowel sounds, soft, nontender, no hepatosplenomegaly Neurologic: PERRL, EOMI, accommodation nl, no face palsy, no dysarthria Psychiatric: A+Ox3, euthymic affect Lymphatic: no cervical or axillary lymphadenopathy Results & Data ([facility]) Vital Signs (Past 12 Hours) Vital Signs Temp Pulse Resp BP Pulse Ox 02/07/20 15:05 36.3 C L 63 18 111/72 98 PG Care Time/CCT Total # of Minutes Spent Total Time Spent with Patient: Total time spent is greater than 50% in coordination of care (as documented) at patient's floor/unit and/or counseling patient: Coding Level of Care Code 70594 Subseq Hosp Care Lvl 1 Diagnoses Impaired decision making Z78.9 AMS (altered mental status) R41.82 Altered mental status type: unspecified Delirium tremens F10.231 Seizure R56.9 Alcoholic Korsakoff syndrome F10.96 Diana F30.9 Paranoid delusion F22 Hallucinations, visual R44.1 Polypharmacy Z79.899 Elevated troponin R79.89 Alcohol abuse F10.10 CAD (coronary artery disease), [place] coronary artery I25.118 Associated angina: with stable angina [place] vs. 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 transplanted heart: [place] heart Qualified Code(s): I25.118 - Atherosclerotic heart disease of [place] coronary artery with other forms of angina pectoris (4) AMS (altered mental status) Altered mental status type: unspecified Qualified Code(s): R41.82 - Altered mental status, unspecified
[2020-02-08] MEDS: SPIRONOLACTONE 25 MG TAB PO SCH (07:47)
[2020-02-08] MEDS: APIXABAN 5 MG TABLET PO SCH ×2 (07:48→21:17)
[2020-02-08] MEDS: DIVALPROEX EXTENDED RELEASE 500 MG TAB PO SCH ×2 (07:48→21:15)
[2020-02-08] MEDS: ISOSORBIDE MONO EXTENDED REL 60 MG TABCR PO SCH (07:48)
[2020-02-08] MEDS: FOLIC ACID 1 MG TAB PO SCH (07:48)
[2020-02-08] MEDS: SOTALOL HCL 80 MG TAB PO SCH ×2 (07:48→21:17)
[2020-02-08] MEDS: MAGNESIUM OXIDE 400 MG TAB PO SCH ×2 (07:49→21:16)
[2020-02-08] MEDS: FUROSEMIDE 20 MG TAB PO SCH (07:49)
[2020-02-08] MEDS: PANTOprazole 40 MG TAB PO SCH ×2 (07:50→21:17)
[2020-02-08] MEDS: THIAMINE HCL 100 MG TAB PO SCH (07:50)
[2020-02-08] MEDS: CLOPIDOGREL BISULFATE 75 MG TAB PO SCH (07:50)
[2020-02-08] MEDS ORDERED: OXYMETAZOLINE 0.05% 30 ML BTL NAE ONE (12:45)
[2020-02-08] MEDS: SODIUM CHLORIDE 0.65% NA SOLN 45 ML (OCEAN) NAE SCH ×2 (12:54→21:17)
[2020-02-08] MEDS: FLUTICASONE/UMECLIDIN/VILANTER INH SCH (21:15)
[2020-02-08] MEDS: METOPROLOL SUCC 25MG EXT REL TAB PO SCH (21:16)
[2020-02-08] MEDS: ATORVASTATIN 40 MG TAB PO SCH (21:16)
[2020-02-08] MEDS: LOSARTAN POTASSIUM 25 MG TAB PO SCH (21:17)
[2020-02-08] MEDS: TRAZODONE HCL 50 MG TAB PO SCH (21:17)
--- NOTE | 2020-02-08 22:01 | Hospitalist Progress Note ---
Date of Service February 08, 2020 Assessment & Plan (1) Impaired decision making: acute related to polypharmacy vs chronic w dementia (alcohol or otherwise) superimposed on baseline high functioning -safe environment, closely monitored meds for next few weeks - if mentation clears then would support polypharmacy, if doesn't, unfortunately would be concerning for new declining baseline w dementia syndrome. -Patient appears better today, able to carry a conversation, but did not remember me. Patient does not appear to be improving in regards to his dementia. No significant change on 02/07 (2) AMS (altered mental status): Most concerning would be polypharmacy and/or an alcohol-related dementia syndrome that is not textbook Wernicke-Korsakoff Continue to follow closely. see above (3) Delirium tremens: Prolonged/refractory delirium tremens or delirium after withdrawal appears possible, but did not seem to get much benefit from phenobarb - will stop No longer appears in DT (02/03) (4) Seizure: seizure occurred in context of EtOH off/on and ambien - probably provoked. none since. on depakote now. Patient is also on phenobarbital. 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 continue thiamine 100mg po daily. (6) Diana: ?diana vs psychosis vs agitation superimposed on baseline dementia process. continue to follow (7) Paranoid delusion: unable to glean today, but per previous hospitalist showed paranoid delusions with concern people are surveilling him. today's main delusions seemed to center on upgrading telephone. (8) Hallucinations, visual: per 01/31 note prior hospitalist: "Noticed patient talking possibly to himself in the room today. Sitting at the window crying. Unclear if he is seeing or hearing people, but this is denied by the patient. More just paranoid delusions at present." (9) Polypharmacy: Hard to tell what he has at home, what he has run out of at home, and what he is actually taking at home. He has been in a structured environment now for the better part of a week, therefore currently polypharmacy would not be at play, but I do wonder how much this plays a role in his erratic behaviors out of the hospital. see above (10) Elevated troponin: Appreciate cardiology consult. Suspect demand-ischemia (chronically raised troponin), no further workup required. (11) Alcohol abuse: Patient previously stated that he stopped drinking alcohol 3 weeks ago. No active withdrawal suspected, but possibly having prolonged delirium following withdrawalsee above. (12) CAD (coronary artery disease), [place] coronary artery: Continue home medicine apixaban 5 mg p.o. twice daily, atorvastatin 80 mg p.o. every afternoon, clopidogrel 75 mg p.o. every morning, furosemide 60 mg p.o. (reduced to once daily due to hypotension, will monitor for HF), isosorbide mononitrate 60 mg p.o. every morning, losartan 25 mg p.o. nightly, metoprolol 25 mg p.o. nightly, nitroglycerin 0.5 mg as directed PRN, sotalol 80 mg p.o. twice daily, spironolactone 25 mg p.o. every morning. (13) Chronic systolic CHF (congestive heart failure): As best I can glean, clinically he appears to be euvolemic. (14) Atrial fibrillation: Continue sotalol for rhythm control. Continue apixaban 5 mg p.o. twice daily. (15) Pre-syncope: No current issues (16) QT prolongation: Now resolved. Antipsychotics now discontinued as lower seizure threshold. However suspect they have been useful earlier in admission for his delusions. Continue trazodone at night -> consider swapping to seroquel if able to convince patient to take this and stable from seizure point of view. 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 (18) Insomnia: Continue trazodone as above. Discontinued Seroquel (increased risk of mortality, although I do feel antipsychotics were reducing some of his impulsions/preoccupations such as needing to leave hospital to go to the [employer] store). No vital signs to be taken at midnight or 4am to aid in patient recovery). Please do not move patient rooms if possible, possible change in environment why he is worse currently +/- antipsychotics possibly helping. (19) DVT prophylaxis: Continue apixaban 5mg BID Admission and Anticipated Discharge Date Admission Date: January 27, 2020 Subjective No new complaints except for intermittent nose bleeds. Improved with saline spray and afrin (one time dose). Awaiting for placement, hoping tomorrow. Review of Systems Review of Systems: All systems reviewed & are unremarkable except as noted in HPI & below Physical Exam Physical Exam: Constitutional: WD/WN, vitals as above Eyes: PERRL, conjunctivae normal, anicteric sclerae Neck: trachea midline, no thyromegaly Respiratory: normal respiratory effort, lungs clear to auscultation Cardiovascular: RRR, no murmur, no edema Gastrointestinal (Abdomen): normal bowel sounds, soft, nontender, no hepatosplenomegaly Neurologic: PERRL, EOMI, accommodation nl, no face palsy, no dysarthria Psychiatric: A+Ox3, euthymic affect Lymphatic: no cervical or axillary lymphadenopathy Results & Data ([facility]) Vital Signs (Past 12 Hours) Vital Signs Temp Pulse Resp BP Pulse Ox 02/08/20 15:58 36.5 C 65 19 101/71 96 PG Care Time/CCT Total # of Minutes Spent Total Time Spent with Patient: Total time spent is greater than 50% in coordination of care (as documented) at patient's floor/unit and/or counseling patient: Coding Level of Care Code 54167 Subseq Hosp Care Lvl 1 Diagnoses Impaired decision making Z78.9 AMS (altered mental status) R41.82 Altered mental status type: unspecified Delirium tremens F10.231 Seizure R56.9 Alcoholic Korsakoff syndrome F10.96 Diana F30.9 Paranoid delusion F22 Hallucinations, visual R44.1 Polypharmacy Z79.899 Elevated troponin R79.89 Alcohol abuse F10.10 CAD (coronary artery disease), [place] coronary artery I25.118 Associated angina: with stable angina [place] vs. 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 transplanted heart: [place] heart Qualified Code(s): I25.118 - Atherosclerotic heart disease of [place] coronary artery with other forms of angina pectoris (4) AMS (altered mental status) Altered mental status type: unspecified Qualified Code(s): R41.82 - Altered mental status, unspecified
[2020-02-09] MEDS: SPIRONOLACTONE 25 MG TAB PO SCH (09:08)
[2020-02-09] MEDS: FUROSEMIDE 20 MG TAB PO SCH (09:08)
[2020-02-09] MEDS: APIXABAN 5 MG TABLET PO SCH ×2 (09:08→22:03)
[2020-02-09] MEDS: ISOSORBIDE MONO EXTENDED REL 60 MG TABCR PO SCH (09:08)
[2020-02-09] MEDS: SOTALOL HCL 80 MG TAB PO SCH ×2 (09:08→22:03)
[2020-02-09] MEDS: FOLIC ACID 1 MG TAB PO SCH (09:08)
[2020-02-09] MEDS: DIVALPROEX EXTENDED RELEASE 500 MG TAB PO SCH ×2 (09:08→22:40)
[2020-02-09] MEDS: CLOPIDOGREL BISULFATE 75 MG TAB PO SCH (09:09)
[2020-02-09] MEDS: MAGNESIUM OXIDE 400 MG TAB PO SCH (09:09)
[2020-02-09] MEDS: SODIUM CHLORIDE 0.65% NA SOLN 45 ML (OCEAN) NAE SCH ×3 (09:09→22:04)
[2020-02-09] MEDS: PANTOprazole 40 MG TAB PO SCH ×2 (09:09→22:03)
[2020-02-09] MEDS: THIAMINE HCL 100 MG TAB PO SCH (09:09)
[2020-02-09 10:25] LABS: Basophils # (auto) 0.04 K/uL (0-0.2); Basophils % (auto) 0.5 %; Eosinophils # (auto) 0.13 K/uL (0-0.5); Eosinophils % (auto) 1.6 %; Hematocrit (blood only) 35.4 % (42-52); Hemoglobin 11.7 g/dL (14.0-18.0); Immature Granulocytes # (auto) 0.03 K/uL (0.00-0.02); Immature Granulocytes % (auto) 0.4 %; Lymphocytes # (auto) 0.93 K/uL (1.2-3.4); Lymphocytes % (auto) 11.8 %; Mean Corpuscular Hemoglobin 27.9 pg (25-34); Mean Corpuscular Hgb Conc 33.1 g/dL (32-36); Mean Corpuscular Volume 84.5 fL (80-100); Mean Platelet Volume 10.5 fL (7.4-10.4); Monocytes # (auto) 1.08 K/uL (0.11-0.59); Monocytes % (auto) 13.7 %; Neutrophils # (auto) 5.69 K/uL (1.4-6.5); Platelet Count 112 K/uL (130-400); RDW Coefficient of Variation 19.1 % (11.5-14.5); RDW Standard Deviation 59.3 fL (36.4-46.3); Red Blood Count 4.19 M/uL (4.7-6.1)
[2020-02-09 10:55] LABS: Albumin Level 2.9 gm/dl (3.4-5.0); BUN Creatinine Ratio 16.3 (10-20); Calcium 8.8 mg/dl (8.5-10.1); Creatinine Clr Calc Pharmacy 54.5 ml/min; Est GFR (African American) 72.3; Est GFR (Non-African American) 62.3; Potassium 3.9 mmol/L (3.5-5.1)
[2020-02-09 10:58] LABS: Albumin Globulin Ratio 0.8 (0.9-2); Bilirubin,Total 0.4 mg/dl (0.2-1); Globulin 3.7 gm/dl (2.5-4.0); Total Protein 6.6 gm/dl (6.4-8.2)
--- NOTE | 2020-02-09 14:28 | Hospitalist Progress Note ---
Date of Service February 09, 2020 Assessment & Plan (1) Impaired decision making: acute related to polypharmacy vs chronic w dementia (alcohol or otherwise) superimposed on baseline high functioning -safe environment, closely monitored meds for next few weeks - if mentation clears then would support polypharmacy, if doesn't, unfortunately would be concerning for new declining baseline w dementia syndrome. (2) AMS (altered mental status): Resolved (3) Delirium tremens: Prolonged/refractory delirium tremens or delirium after withdrawal appears possible, given phenobarbitol now discontinued No longer appears in DT (4) Seizure: seizure occurred in context of EtOH abuse and cessation and ambien - probably provoked. none since. on depakote now. 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 continue thiamine 100mg po daily. (6) Diana: ?diana vs psychosis vs agitation superimposed on baseline dementia process. continue to follow (7) Paranoid delusion: paranoid delusions earlier in his hospital stay, improved (8) Hallucinations, visual: per 01/31 note prior hospitalist: "Noticed patient talking possibly to himself in the room today. Sitting at the window crying. Unclear if he is seeing or hearing people, but this is denied by the patient. More just paranoid delusions at present." Resolved (9) Polypharmacy: Hard to tell what he has at home, what he has run out of at home, and what he is actually taking at home. Mentation improving in structured environment (10) Elevated troponin: Appreciate cardiology consult. Suspect demand-ischemia (chronically raised troponin), no further workup required. (11) Alcohol abuse: Patient previously stated that he stopped drinking alcohol 3 weeks ago. No active withdrawal suspected, but possibly having prolonged delirium following withdrawalsee above. (12) CAD (coronary artery disease), [place] coronary artery: Continue home medicine atorvastatin 80 mg p.o. every afternoon, clopidogrel 75 mg p.o. every morning, isosorbide mononitrate 60 mg p.o. every morning, losartan 25 mg p.o. nightly, metoprolol 25 mg p.o. nightly, nitroglycerin 0.5 mg as directed PRN, sotalol 80 mg p.o. twice daily, spironolactone 25 mg p.o. every morning. (13) Chronic systolic CHF (congestive heart failure): Continue furosemide at reduced dose of 60 mg daily instead of BID due to hypotension (14) Atrial fibrillation: Continue sotalol and apixaban (15) Pre-syncope: No current issues (16) QT prolongation: Now resolved. Antipsychotics now discontinued as lower seizure threshold. However suspect they have been useful earlier in admission for his delusions. 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 (18) Insomnia: Continue trazodone as above. Discontinued Seroquel (increased risk of mortality, although I do feel antipsychotics were reducing some of his impulsions/preoccupations such as needing to leave hospital to go to the [employer] store). No vital signs to be taken at midnight or 4am to aid in patient recover y). Please do not move patient rooms if possible (19) DVT prophylaxis: Continue apixaban 5mg BID Admission and Anticipated Discharge Date Admission Date: January 27, 2020 Subjective Mr. Alcala is oriented today though somewhat fixated on disposition and placement, difficulty to redirect him from the topic. He has no physical complaints. ROS Constitutional: no chills, aches, sweats or fever Respiratory: no sob,cough, sputum, or wheezing Cardiac: no chest pain, palpitations, edema, orthopnea or lightheadedness GI: no abdominal pain, nausea, vomiting, diarrhea or constipation : no dysuria or hesitancy Extremities: no joint pain or weakness Skin: no rash All other systems reviewed and negative Physical Exam Physical Exam: General: no distress Eyes: normal inspection, PERLL Respiratory: chest non tender, clear to auscultation, normal breath sounds, no respiratory distress, no accessory muscle use Cardiac: regular rate and rhythm, no rub or gallop, no murmur, no edema, no jvd GI/: active bowel sounds, no abd pain or tenderness, soft, non distended Extremities: normal range of motion, normal strength, non tender Neuro/Psych: alert and oriented x 3, normal mood and affect Skin: normal color, dry Results & Data ([facility]) Vital Signs (Past 12 Hours) Vital Signs Temp Pulse Resp BP Pulse Ox 02/09/20 07:14 36.6 C 54 L 18 103/62 93 PG Care Time/CCT Total # of Minutes Spent Total Time Spent with Patient: Total time spent is greater than 50% in coordination of care (as documented) at patient's floor/unit and/or counseling patient: Coding Level of Care Code 20142 Subseq Hosp Care Lvl 2 Diagnoses Impaired decision making Z78.9 AMS (altered mental status) R41.82 Altered mental status type: unspecified Delirium tremens F10.231 Seizure R56.9 Alcoholic Korsakoff syndrome F10.96 Diana F30.9 Paranoid delusion F22 Hallucinations, visual R44.1 Polypharmacy Z79.899 Elevated troponin R79.89 Alcohol abuse F10.10 CAD (coronary artery disease), [place] coronary artery I25.118 Associated angina: with stable angina [place] vs. 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 transplanted heart: [place] heart Qualified Code(s): I25.118 - Atherosclerotic heart disease of [place] coronary artery with other forms of angina pectoris (4) AMS (altered mental status) Altered mental status type: unspecified Qualified Code(s): R41.82 - Altered mental status, unspecified
[2020-02-09] MEDS: METOPROLOL SUCC 25MG EXT REL TAB PO SCH (22:03)
[2020-02-09] MEDS: ATORVASTATIN 40 MG TAB PO SCH (22:03)
[2020-02-09] MEDS: LOSARTAN POTASSIUM 25 MG TAB PO SCH (22:04)
[2020-02-09] MEDS: TRAZODONE HCL 50 MG TAB PO SCH (22:04)
[2020-02-09] MEDS: FLUTICASONE/UMECLIDIN/VILANTER INH SCH ×2 (22:05→22:16)
[2020-02-10] MEDS: SPIRONOLACTONE 25 MG TAB PO SCH (07:56)
[2020-02-10] MEDS: DIVALPROEX EXTENDED RELEASE 500 MG TAB PO SCH ×2 (07:57→21:08)
[2020-02-10] MEDS: FOLIC ACID 1 MG TAB PO SCH (07:57)
[2020-02-10] MEDS: APIXABAN 5 MG TABLET PO SCH ×2 (07:57→21:09)
[2020-02-10] MEDS: SOTALOL HCL 80 MG TAB PO SCH ×2 (07:57→21:08)
[2020-02-10] MEDS: ISOSORBIDE MONO EXTENDED REL 60 MG TABCR PO SCH (07:57)
[2020-02-10] MEDS: LOSARTAN POTASSIUM 25 MG TAB PO SCH (07:58)
[2020-02-10] MEDS: FUROSEMIDE 20 MG TAB PO SCH (07:58)
[2020-02-10] MEDS: THIAMINE HCL 100 MG TAB PO SCH (07:58)
[2020-02-10] MEDS: CLOPIDOGREL BISULFATE 75 MG TAB PO SCH (07:58)
[2020-02-10] MEDS: PANTOprazole 40 MG TAB PO SCH ×2 (07:58→21:09)
[2020-02-10] MEDS: SODIUM CHLORIDE 0.65% NA SOLN 45 ML (OCEAN) NAE SCH ×3 (07:59→21:05)
--- NOTE | 2020-02-10 15:07 | Hospitalist Progress Note ---
Date of Service February 10, 2020 Assessment & Plan (1) Impaired decision making: acute related to polypharmacy vs chronic w dementia (alcohol or otherwise) superimposed on baseline high functioning -safe environment, closely monitored meds for next few weeks (2) AMS (altered mental status): Resolved (3) Delirium tremens: Prolonged/refractory delirium tremens or delirium after withdrawal appears possible, given phenobarbitol now discontinued No longer appears in DT (4) Seizure: seizure occurred in context of EtOH abuse and cessation and ambien - probably provoked. none since. on depakote now. 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 Continue thiamine 100mg po daily. (6) Diana: ?diana vs psychosis vs agitation superimposed on baseline dementia process. Improved (7) Paranoid delusion: paranoid delusions earlier in his hospital stay, improved (8) Hallucinations, visual: per 01/31 note prior hospitalist: "Noticed patient talking possibly to himself in the room today. Sitting at the window crying. Unclear if he is seeing or hearing people, but this is denied by the patient. More just paranoid del usions at present." Resolved (9) Polypharmacy: Hard to tell what he has at home, what he has run out of at home, and what he is actually taking at home. Mentation improving in structured environment (10) Elevated troponin: Appreciate cardiology consult. Suspect demand-ischemia (chronically raised troponin), no further workup required. (11) Alcohol abuse: Patient previously stated that he stopped drinking alcohol 3 weeks ago. No active withdrawal suspected, but possibly having prolonged delirium following withdrawalsee above. (12) CAD (coronary artery disease), [place] coronary artery: Continue home medicine atorvastatin 80 mg p.o. every afternoon, clopidogrel 75 mg p.o. every morning, isosorbide mononitrate 60 mg p.o. every morning, losartan 25 mg p.o. nightly, metoprolol 25 mg p.o. nightly, nitroglycerin 0.5 mg as directed PRN, sotalol 80 mg p.o. twice daily, spironolactone 25 mg p.o. every morning. (13) Chronic systolic CHF (congestive heart failure): Continue furosemide at reduced dose of 60 mg daily instead of BID due to hypotension (14) Atrial fibrillation: Continue sotalol and apixaban (15) Pre-syncope: No current issues (16) QT prolongation: Now resolved. Antipsychotics now discontinued as lower seizure threshold. However suspect they have been useful earlier in admission for his delusions. 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 (18) Insomnia: Continue trazodone as above. Discontinued Seroquel (increased risk of mortality). No vital signs to be taken at midnight or 4am to aid in patient recovery). Please do not move patient rooms if possible (19) DVT prophylaxis: Continue apixaban 5mg BID Admission and Anticipated Discharge Date Admission Date: January 27, 2020 Discharge February 11 or when bed at [facility] opens up Subjective Mr. Alcala is feeling well no complaints. ROS Constitutional: no chills, aches, sweats or fever Respiratory: no sob,cough, sputum, or wheezing Cardiac: no chest pain, palpitations, edema, orthopnea or lightheadedness GI: no abdominal pain, nausea, vomiting, diarrhea or constipation : no dysuria or hesitancy Extremities: no joint pain or weakness Skin: no rash All other systems reviewed and negative Physical Exam Physical Exam: General: no distress Eyes: normal inspection, PERLL Respiratory: chest non tender, clear to auscultation, normal breath sounds, no respiratory distress, no accessory muscle use Cardiac: regular rate and rhythm, no rub or gallop, no murmur, no edema, no jvd GI/: active bowel sounds, no abd pain or tenderness, soft, non distended Extremities: normal range of motion, normal strength, non tender Neuro/Psych: alert and oriented x 3, normal mood and affect Skin: normal color, dry Results & Data ([facility]) Vital Signs (Past 12 Hours) Vital Signs Temp Resp BP Pulse Ox 02/10/20 07:30 36.5 C 18 92/71 L 97 PG Care Time/CCT Total # of Minutes Spent Total Time Spent with Patient: Total time spent is greater than 50% in coordination of care (as documented) at patient's floor/unit and/or counseling patient: Coding Level of Care Code 79672 Subseq Hosp Care Lvl 2 Diagnoses Impaired decision making Z78.9 AMS (altered mental status) R41.82 Altered mental status type: unspecified Delirium tremens F10.231 Seizure R56.9 Alcoholic Korsakoff syndrome F10.96 Diana F30.9 Paranoid delusion F22 Hallucinations, visual R44.1 Polypharmacy Z79.899 Elevated troponin R79.89 Alcohol abuse F10.10 CAD (coronary artery disease), [place] coronary artery I25.118 [place] vs. 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 transplanted heart: [place] heart Associated angina: with stable angina Qualified Code(s): I25.118 - Atherosclerotic heart disease of [place] coronary artery with other forms of angina pectoris (3) Atrial fibrillation Atrial fibrillation type: unspecified Qualified Code(s): I48.91 - Unspecified atrial fibrillation (4) Insomnia Insomnia type: unspecified Qualified Code(s): G47.00 - Insomnia, unspecified
[2020-02-10] MEDS: FLUTICASONE/UMECLIDIN/VILANTER INH SCH (21:05)
[2020-02-10] MEDS: METOPROLOL SUCC 25MG EXT REL TAB PO SCH (21:06)
[2020-02-10] MEDS: ATORVASTATIN 40 MG TAB PO SCH (21:09)
[2020-02-10] MEDS: TRAZODONE HCL 50 MG TAB PO SCH (21:30)
[2020-02-11] MEDS: FUROSEMIDE 20 MG TAB PO SCH (08:17)
[2020-02-11] MEDS: PANTOprazole 40 MG TAB PO SCH ×2 (08:17→21:48)
[2020-02-11] MEDS: FOLIC ACID 1 MG TAB PO SCH (08:17)
[2020-02-11] MEDS: APIXABAN 5 MG TABLET PO SCH ×2 (08:17→21:46)
[2020-02-11] MEDS: SOTALOL HCL 80 MG TAB PO SCH ×2 (08:18→21:45)
[2020-02-11] MEDS: SPIRONOLACTONE 25 MG TAB PO SCH (08:18)
[2020-02-11] MEDS: DIVALPROEX EXTENDED RELEASE 500 MG TAB PO SCH ×2 (08:18→21:45)
[2020-02-11] MEDS: THIAMINE HCL 100 MG TAB PO SCH (08:18)
[2020-02-11] MEDS: CLOPIDOGREL BISULFATE 75 MG TAB PO SCH (08:18)
[2020-02-11] MEDS: SODIUM CHLORIDE 0.65% NA SOLN 45 ML (OCEAN) NAE SCH ×3 (08:19→23:27)
[2020-02-11] MEDS: ISOSORBIDE MONO EXTENDED REL 60 MG TABCR PO SCH (08:19)
--- NOTE | 2020-02-11 15:08 | Hospitalist Progress Note ---
Date of Service February 11, 2020 Assessment & Plan (1) Impaired decision making: acute related to polypharmacy vs chronic w dementia (alcohol or otherwise) superimposed on baseline high functioning -safe environment, closely monitored meds for next few weeks (2) AMS (altered mental status): Resolved (3) Delirium tremens: Prolonged/refractory delirium tremens or delirium after withdrawal appears possible, given phenobarbitol now discontinued No longer appears in DT (4) Seizure: seizure occurred in context of EtOH abuse and cessation and ambien - probably provoked. none since. on depakote now. 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 Continue thiamine 100mg po daily. (6) Diana: ?diana vs psychosis vs agitation superimposed on baseline dementia process. Improved (7) Paranoid delusion: paranoid delusions earlier in his hospital stay, improved (8) Hallucinations, visual: per 01/31 note prior hospitalist: "Noticed patient talking possibly to himself in the room today. Sitting at the window crying. Unclear if he is seeing or hearing people, but this is denied by the patient. More just paranoid del usions at present." Resolved (9) Polypharmacy: Hard to tell what he has at home, what he has run out of at home, and what he is actually taking at home. Mentation improving in structured environment (10) Elevated troponin: Appreciate cardiology consult. Suspect demand-ischemia (chronically raised troponin), no further workup required. (11) Alcohol abuse: Patient previously stated that he stopped drinking alcohol 3 weeks ago. No active withdrawal suspected, but possibly having prolonged delirium following withdrawalsee above. (12) CAD (coronary artery disease), [place] coronary artery: Continue home medicine atorvastatin 80 mg p.o. every afternoon, clopidogrel 75 mg p.o. every morning, isosorbide mononitrate 60 mg p.o. every morning, losartan 25 mg p.o. nightly, metoprolol 25 mg p.o. nightly, nitroglycerin 0.5 mg as directed PRN, sotalol 80 mg p.o. twice daily, spironolactone 25 mg p.o. every morning. (13) Chronic systolic CHF (congestive heart failure): Continue furosemide at reduced dose of 60 mg daily instead of BID due to hypotension (14) Atrial fibrillation: Continue sotalol and apixaban (15) Pre-syncope: No current issues (16) QT prolongation: Now resolved. Antipsychotics now discontinued as lower seizure threshold. However suspect they have been useful earlier in admission for his delusions. 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 (18) Insomnia: Continue trazodone as above. Discontinued Seroquel (increased risk of mortality). No vital signs to be taken at midnight or 4am to aid in patient recovery). Please do not move patient rooms if possible (19) DVT prophylaxis: Continue apixaban 5mg BID Admission and Anticipated Discharge Date Admission Date: January 27, 2020 Discharge 02/12/2020 Subjective No complaints, continues to be somewhat difficult to re-direct when off on a tangent. Looking forward to discharge ROS Constitutional: no chills, aches, sweats or fever Respiratory: no sob,cough, sputum, or wheezing Cardiac: no chest pain, palpitations, edema, orthopnea or lightheadedness GI: no abdominal pain, nausea, vomiting, diarrhea or constipation : no dysuria or hesitancy Extremities: no joint pain or weakness Skin: no rash All other systems reviewed and negative Physical Exam Physical Exam: General: no distress Eyes: normal inspection, PERLL Respiratory: chest non tender, clear to auscultation, normal breath sounds, no respiratory distress, no accessory muscle use Cardiac: regular rate and rhythm, no rub or gallop, no murmur, no edema, no jvd GI/: active bowel sounds, no abd pain or tenderness, soft, non distended Extremities: normal range of motion, normal strength, non tender Neuro/Psych: alert and oriented x 3, normal mood and affect Skin: normal color, dry Results & Data ([facility]) Vital Signs (Past 12 Hours) Vital Signs Temp Pulse Resp BP Pulse Ox 02/11/20 11:18 36.6 C 61 18 110/80 96 02/11/20 07:45 36.6 C 62 18 98/66 L 97 PG Care Time/CCT Total # of Minutes Spent Total Time Spent with Patient: Total time spent is greater than 50% in coordination of care (as documented) at patient's floor/unit and/or counseling patient: Coding Level of Care Code 81498 Subseq Hosp Care Lvl 2 Diagnoses Impaired decision making Z78.9 AMS (altered mental status) R41.82 Altered mental status type: unspecified Delirium tremens F10.231 Seizure R56.9 Alcoholic Korsakoff syndrome F10.96 Diana F30.9 Paranoid delusion F22 Hallucinations, visual R44.1 Polypharmacy Z79.899 Elevated troponin R79.89 Alcohol abuse F10.10 CAD (coronary artery disease), [place] coronary artery I25.118 [place] vs. 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 transplanted heart: [place] heart Associated angina: with stable angina Qualified Code(s): I25.118 - Atherosclerotic heart disease of [place] coronary artery with other forms of angina pectoris (3) Atrial fibrillation Atrial fibrillation type: unspecified Qualified Code(s): I48.91 - Unspecified atrial fibrillation (4) Insomnia Insomnia type: unspecified Qualified Code(s): G47.00 - Insomnia, unspecified
[2020-02-11] MEDS: LOSARTAN POTASSIUM 25 MG TAB PO SCH (21:45)
[2020-02-11] MEDS: ATORVASTATIN 40 MG TAB PO SCH (21:47)
[2020-02-11] MEDS: FLUTICASONE/UMECLIDIN/VILANTER INH SCH (21:48)
[2020-02-11] MEDS: METOPROLOL SUCC 25MG EXT REL TAB PO SCH (21:48)
[2020-02-11] MEDS: TRAZODONE HCL 50 MG TAB PO SCH (23:27)
[2020-02-12 07:39] VITALS: PULSE 72; TEMP 97.2; O2SAT 92
[2020-02-12] MEDS: SPIRONOLACTONE 25 MG TAB PO SCH (08:33)
[2020-02-12] MEDS: THIAMINE HCL 100 MG TAB PO SCH (08:33)
[2020-02-12] MEDS: FUROSEMIDE 20 MG TAB PO SCH (08:33)
[2020-02-12] MEDS: PANTOprazole 40 MG TAB PO SCH (08:34)
[2020-02-12] MEDS: DIVALPROEX EXTENDED RELEASE 500 MG TAB PO SCH (08:34)
[2020-02-12] MEDS: FOLIC ACID 1 MG TAB PO SCH (08:34)
[2020-02-12] MEDS: SOTALOL HCL 80 MG TAB PO SCH (08:34)
[2020-02-12] MEDS: ISOSORBIDE MONO EXTENDED REL 60 MG TABCR PO SCH (08:34)
[2020-02-12] MEDS: CLOPIDOGREL BISULFATE 75 MG TAB PO SCH (08:34)
[2020-02-12] MEDS: APIXABAN 5 MG TABLET PO SCH (08:34)
[2020-02-12] MEDS: SODIUM CHLORIDE 0.65% NA SOLN 45 ML (OCEAN) NAE SCH (08:40)
--- NOTE | 2020-02-12 09:38 | Discharge Summary ---
Date of Service February 12, 2020 Admission HPI Per Admitting Provider The patient is a 75 years old male with past medical history of alcohol abuse for years, GERD, ischemic cardiomyopathy with ICD in place (defibrillator), atrial fibrillation, seizure, pituitary adenoma, gout, chronic respiratory failure with hypoxia, chronic systolic congestive heart failure, coronary artery disease, peripheral artery disease, celiac disease anemia, thrombocytopenia, who is brought by his friend to the emergency room for altered mental status, polypharmacy and visual hallucinations. Patient stopped drinking alcohol 2 weeks ago. Patient is not in withdrawal. Patient exhibits significant gaps in recent memory with preserved remote memory. Patient is not very compliant and threatened to walk out. And moment patient is pleasant and persuasive, he is not sure why we are admitting him to the hospital. Patient friend reports that that this is patient's fourth hospitalization and he is not taking Ambien anymore his drug screen was negative in his PCP office. Patient forgets taking his medication. On occasion patient is hallucinating and gets into improper conduct in the stores. 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 Labs are reviewed: WBC is 8, hemoglobin 13.9, hematocrit 42.1, platelets 173, PT 13, INR 1.3, APTT 27.1. Sodium 134, potassium 3.9, chloride 103, anion gap 8, BUN 15, creatinine 1.02, GFR 72.1,Total bili 1.1, AST 26, ALT 20, alkaline phosphatase 95, ammonia not checked. Troponin 0.04. Decision was made to admit patient to PCU on telemetry for borderline troponin, hallucinations, Korsakoff encephalopathy and placement to possibly fpc. Principal Diagnosis Altered mental status Discharge Exam Constitutional WD/WN, vitals as above Respiratory normal respiratory effort, lungs clear to auscultation Gastrointestinal (Abdomen) Inspection/Auscultation: abdomen normal to inspection and normal bowel sounds; abdomen not distended Percussion/Palpation: abdomen soft; abdomen nontender Musculoskeletal no cyanosis or clubbing, extremities motor strength 5/5 Skin no rashes, warm and dry Neurologic moves all extremities and awake Psychiatric A+Ox3, euthymic affect Discharge Data Allergies Allergy/AdvReac Type Severity Reaction Status Date / Time amoxicillin Allergy Intermediate Symmetrical Verified 01/29/20 23:59 drug-related intertriginous flexural exanthema lactose AdvReac Intermediate GI SYMPTOMS Verified 01/26/20 16:47 benzalkonium chloride AdvReac Mild ITCHING/SWE Verified 01/26/20 16:47 LLING/RASH gluten AdvReac Unknown gluten Verified 01/26/20 16:47 intolerant per EGD Consultations 01/26/20 18:30 ED Decision to Admit Stat 01/26/20 21:38 Consult Psychiatry Routine 01/27/20 10:24 Consult Neurology Routine 01/27/20 20:37 Consult Cardiology Routine Ordered Studies 01/26/20 15:59 CT head/brain wo con Stat Hospital Course (1) Impaired decision making: acute related to polypharmacy vs chronic w dementia (alcohol or otherwise) superimposed on baseline high functioning -safe environment, closely monitored meds for next few weeks (2) AMS (altered mental status): Resolved (3) Delirium tremens: Prolonged/refractory delirium tremens or delirium after withdrawal appears possible, given phenobarbitol now discontinued No longer appears in DT (4) Seizure: seizure occurred in context of EtOH abuse and cessation and ambien - probably provoked. none since. on depakote now. 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 Continue thiamine 100mg po daily. (6) Cedric: ?cedric vs psychosis vs agitation superimposed on baseline dementia p rocess. Improved (7) Paranoid delusion: paranoid delusions earlier in his hospital stay, improved (8) Hallucinations, visual: per 01/31 note prior hospitalist: "Noticed patient talking possibly to himself in the room today. Sitting at the window crying. Unclear if he is seeing or hearing people, but this is denied by the patient. More just paranoid delusions at present." Resolved (9) Polypharmacy: Hard to tell what he has at home, what he has run out of at home, and what he is actually taking at home. Mentation improving in structured environment (10) Elevated troponin: Appreciate cardiology consult. Suspect demand-ischemia (chronically raised troponin), no further workup required. (11) Alcohol abuse: Patient previously stated that he stopped drinking alcohol 3 weeks ago [employer] No active withdrawal suspected, but possibly having prolonged delirium following withdrawalsee above. (12) CAD (coronary artery disease), [place] coronary artery: Continue home medicine atorvastatin 80 mg p.o. every afternoon, clopidogrel 75 mg p.o. every morning, isosorbide mononitrate 60 mg p.o. every morning, losartan 25 mg p.o. nightly, metoprolol 25 mg p.o. nightly, nitroglycerin 0.5 mg as directed PRN, sotalol 80 mg p.o. twice daily, spironolactone 25 mg p.o. every morning. (13) Chronic systolic CHF (congestive heart failure): Continue furosemide at reduced dose of 60 mg daily instead of BID due to hypotension (14) Atrial fibrillation: Continue sotalol and apixaban (15) Pre-syncope: No current issues (16) QT prolongation: Now resolved. Antipsychotics now discontinued as lower seizure threshold. However suspect they have been useful earlier in admission for his delusions. 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 (18) Insomnia: Continue trazodone as above. Discontinued Seroquel (increased risk of mortality). No vital signs to be taken at midnight or 4am to aid in patient recovery). Please do not move patient rooms if possible (19) DVT prophylaxis: Continue apixaban 5mg BID Total Time Total Time Spent Total Time Spent (In Minutes): greater than 30 minutes Discharge Plan Discharge Items Patient Disposition: Personal Usp Reason For Visit: ALTERED MENTAL STATUS Discharge Diagnosis: Altered mental status Activity: Resume your previous activity Non-emergency contact: Primary Care Provider Call non-emergency contact if: you have any medication questions Follow-up/Referrals: ProQuirino MD [Primary Care Provider] - Diet: Heart Healthy Addtl Attending Provider Instructions: (1) Impaired decision making: acute related to polypharmacy vs chronic w dementia (alcohol or otherwise) superimposed on baseline high functioning -safe environment, closely monitored meds for next few weeks to evaluate mentation which is already much improved (2) AMS (altered mental status): Resolved (3) Delirium tremens: Prolonged/refractory delirium tremens or delirium after withdrawal appears possible, given phenobarbitol now discontinued No longer appears in DT (4) Seizure: seizure occurred in context of EtOH abuse and cessation and ambien - probably provoked. none since. on depakote now. Valproic acid level wnl (5 ) Elevated troponin: Cardiology consulted, no further workup required. (6) Alcohol abuse: Patient previously stated that he stopped drinking alcohol 3 weeks prior to admission. No active withdrawal suspected, but possibly having prolonged delirium following withdrawal (7) CAD (coronary artery disease), [place] coronary artery: Continue home medicine atorvastatin 80 mg p.o. every afternoon, clopidogrel 75 mg p.o. every morning, isosorbide mononitrate 60 mg p.o. every morning, losartan 25 mg p.o. nightly, metoprolol 25 mg p.o. nightly, nitroglycerin 0.5 mg as directed PRN, sotalol 80 mg p.o. twice daily, spironolactone 25 mg p.o. every morning. (8) Chronic systolic CHF (congestive heart failure): Continue furosemide at reduced dose of 60 mg daily instead of BID due to hypotension (9) Atrial fibrillation: Continue sotalol and apixaban (10) Symmetrical drug-related intertriginous and flexural exanthema: (SDRIFE) - secondary to Augmentin given. (11) Insomnia: Continue trazodone Pending Studies at Discharge: No Stand-Alone Forms: [employer] Smoking Cessation Skilled Items Patient informed of condition?: Yes DNR: No Discharge Level of Care: Other Communicable Disease: No Discharge Prognosis: Stable Lines: None Urinary Catheter: No Medications and DC Order Prescriptions: New thiamine HCl (vitamin B1) [Vitamin B-1] 100 mg Tablet 100 mg PO QAM Qty: 30 RF: 0 divalproex 500 mg Tablet Extended Release 24 Hr 500 mg PO BID Qty: 60 RF: 0 atorvastatin 80 mg Tablet 80 mg PO QPM Qty: 30 RF: 0 trazodone 50 mg tablet 50 mg PO HS Qty: 30 RF: 0 sotalol 80 mg tablet 80 mg PO BID Qty: 60 RF: 0 clopidogrel [Plavix] 75 mg Tablet 75 mg PO QAM Qty: 30 RF: 0 isosorbide mononitrate 60 mg tablet extended release 24 hr 60 mg PO QAM Qty: 30 RF: 0 losartan 25 mg tablet 25 mg PO HS Qty: 30 RF: 0 nitroglycerin [Nitrostat] 0.4 mg tablet, sublingual 0.4 mg SL DIRECTED PRN (Reason: Chest Pain) Qty: 30 RF: 0 omeprazole 20 mg Capsule,Delayed Release(Dr/Ec) 40 mg PO BID Qty: 30 RF: 0 folic acid 1 mg Tablet 1 mg PO QAM Qty: 30 RF: 0 metoprolol succinate 25 mg Tablet Extended Release 24 Hr 25 mg PO HS 30 Days Qty: 30 RF: 0 cholecalciferol (vitamin D3) [Vitamin D3] 50 mcg (2,000 unit) Capsule 2,000 unit PO DAILY Qty: 30 RF: 0 Eliquis 5 mg tablet 5 mg PO BID Qty: 60 RF: 0 albuterol sulfate 90 mcg/actuation aerosol powdr breath activated 90 mcg INH Q6H PRN (Reason: Shortness Of Breath Or Wheezing) Qty: 30 RF: 0 Trelegy Ellipta 100-62.5-25 mcg blister with device 1 inh inhalation HS Qty: 30 RF: 0 furosemide 20 mg Tablet 60 mg PO QAM Qty: 30 RF: 0 Continued spironolactone 25 mg tablet 25 mg PO QAM RF: 0 thiamine HCl (vitamin B1) [Vitamin B-1] 100 mg Tablet 100 mg PO QAM Qty: 30 RF: 0 Discontinued furosemide 40 mg tablet 60 mg PO BID RF: 0 testosterone [AndroGel] 20.25 mg/1.25 gram (1.62 %) gel in metered-dose pump 2 pump transdermal QAM RF: 0 levetiracetam 500 mg tablet 500 mg PO BID RF: 0 Discharge Orders: Discharge Order (Routine); Ordered 02/12/20 Ordered By: Autumn Morrison/Other Patient Handouts: A1C Admission Data Admit Date/Time: 01/27/20 14:08 Attending Provider: Jamar Hutton Admit Provider: Kristopher Williamson Primary Care Provider: Quirino Hensley Other Providers: Halina Becerra ; Tin Vaz III ; Tera Newberry Jonathan M. ; Jamar Hutton Other Interventions: Discharge Summary Assessment (RN) Last Done: 02/12/20 13:00 DC Date/Time DO NOT enter until pt leaves facility: 02/12/20 13:42 Supervising Physician Co-Signing Physician Notes I supervised Autumn Mcghee NP on this patient's care. I examined the patient today independently of her. I discussed the plan of care with her with the plan being as written in her note except for any following changes/exceptions: None. No major complaints today. He reports he is as healthy as when he got in. No major concerns. He is ready for discharge. Unfortunately, he does not appear to have had any major improvement in his dementia/mental status. He did not remember me from prior visits. He inquired about other providers and said that I should tell them they needed to immediately come to his room to discuss issues of concern. Coding Level of Care Code D/C Day Management >30 mins Diagnoses Impaired decision making Z78.9 AMS (altered mental status) R41.82 Altered mental status type: unspecified Delirium tremens F10.231 Seizure R56.9 Alcoholic Korsakoff syndrome F10.96 Cedric F30.9 Paranoid delusion F22 Hallucinations, visual R44.1 Polypharmacy Z79.899 Elevated troponin R79.89 Alcohol abuse F10.10 CAD (coronary artery disease), [place] coronary artery I25.118 Associated angina: with stable angina [place] vs. transplanted heart: [place] heart Chronic systolic CHF (congestive heart failure) I50.22 Atrial fibrillation I48.91 Atrial fibrillation type: unspecified Pre-syncope R55 QT prolongation R94.31 Symmetrical drug-related intertriginous and flexural exanthema L27.0 Insomnia G47.00 Insomnia type: unspecified DVT prophylaxis Z29.9
[2020-02-12 13:04] VITALS: BP 93/62
== END 2020-02-12 13:42 | disposition home or self-care (01) | DRG 897 ==
LOC: 2S 13:39 → ED 13:39 → SUATTDRO 19:58 → 2S 20:27 → 2E 01-27 07:38 → SUATTDRO 01-27 14:08 → 4W 01-31 09:01 → 3N 02-11 10:33

== ENCOUNTER 2020-02-15 16:42 | Inpatient (IN) ==
--- NOTE | 2020-02-15 17:12 | Emergency Department Note ---
ED Provider Note NAME: BERYL JEFFERSON AGE: 75 SEX: M ARRIVES VIA: Ambulance INFORMANT: [Patient] ED PROVIDER(S): Josemanuel Burgess MD CHIEF COMPLAINT: Lower extremity edema IMPRESSION: CHF Elevated troponin Lower extremity edema PLAN: Disposition: Admitted Condition: [Good] MEDICAL DECISION MAKING: The patient is a 75-year-old male with a complicated medical history the presents due to several days of increasing lower extremity edema and redness. H e has a history of coronary disease, cardiac arrest, and alcoholism. Blood work, ultrasound imaging, chest x-ray, and ECG were performed. The patient has an elevated BNP and mild elevation of troponin. I did order IV Lasix however the patient declined this in the ER and would like to do this when he is admitted to the hospital. I did have a long discussion about initiation of treatment however he would like to wait. I did discuss the case with the hospitalist and he was admitted. Triage Nursing notes reviewed and agree them. [Prior medical records reviewed] recent hospitalization for altered mental status. Believed to be multifactorial. He was stable from a cardiac standpoint per cardiology. Vital Signs: reviewed and remarkable for [no significant abnormalities] Differential diagnosis: DVT, musculoskeletal, infection, joint effusion, trauma, lymphedema, idiopathic, CHF, as well as other pathologies. ER treatment provided: IV Lasix was ordered however the patient declined this and wanted to wait until he was admitted. Diagnostics interpreted by me: ECG: Rate: 70 Rhythm: Sinus rhythm with first-degree AV [place]: Normal QRS: Normal ST segements: No elevation or depression. Other: Prolonged QT, anterior Q waves. PVCs. Cardiac Monitoring: Cardiac monitoring ordered: The patient was placed on susan nuous cardiac monitoring and observed. It revealed a normal sinus rhythm at 68 bpm without ectopy or evidence of dysrhythmia. Laboratory studies: [See below] the patient had an unremarkable CBC and chemistry panel except for mild anemia. The patient's BNP is significantly elevated. Elevated troponin. Hypoalbuminemia present. Imaging studies: Chest x-ray reveals no evidence of acute process. Bilateral ultrasound imaging of the lower extremities was performed and revealed no evidence of DVT. Consultation(s): [place] [facility] service, Dr. Evan Kenney HPI: The patient is a 75 year old male who presents to the Emergency Room with complaints of bilateral lower extremity edema. This started several days ago and is worsened. The patient also notes the following associated symptoms, redness of the skin. The patient has found no relieving factors. Current pain is rated as 0/10. The patient has an extensive cardiac history. His recent hospitalization did not involve any major issues from a cardiac standpoint. He is currently had a assisted living center. The patient notes progressive swelling in his legs. He has redness which seems to be worse on the left. He denies any other symptoms. The patient does have memory issues that are multifactorial. This does limit details in the history. Pt denies LOC, headache, fevers, chills, diaphoresis, visual changes, neck pain, chest pain, breathing difficulties, nausea, vomiting, abdominal pain, back pain, melena, hematochezia, urinary symptoms, numbness, weakness, lymphadenopathy, rash, or other complaints. ROS: See above HPI for pertinent positives & negatives. A total of [10] systems reviewed and were otherwise negative. PAST MEDICAL HISTORY:[See Below]. Ischemic cardiomyopathy PAST SURGICAL HISTORY:[See Below]ICD FAMILY HISTORY:[See Below] SOCIAL HISTORY:[See Below] currently resides at assisted living. Prior alcohol use. HOME MEDICATIONS:[See Below], reviewed in EMR. ALLERGIES:[See Below] VITALS:[See Below] PHYSICAL EXAMINATION: GENERAL: Awake, alert, well-appearing, in no distress HENT: Normocephalic, atraumatic. Oropharynx unremarkable. EYES: Normal conjunctiva. Sclera non-icteric. NECK: Inspection normal. Non-tender. Supple. No nuchal rigidity. FROM. No masses. RESPIRATORY: Clear to auscultation. No wheezes. No rales. Normal respiratory effort. CARDIAC: Normal rate. Normal rhythm. No murmurs. No rubs. Extremities warm and well perfused. Pulses equal. No JVD. GI: Soft, non-distended. No tenderness to palpation. No rebound or guarding. No masses. RECTAL: Deferred. MUSCULOSKELETAL: Atraumatic. Chest examination reveals no tenderness. The back is symmetrical on inspection without obvious abnormality. There is no CVA tenderness to palpation. No joint edema. LOWER EXTREMITIES: Calves are equal size bilaterally and non-tender. 2-3+ bilateral lower leg pitting edema. Left foot is warm and erythematous. NEURO: Mildly confused sensorium. No sensory or motor deficits noted. Patient requires redirection on questioning. SKIN: No rash or jaundice noted. ED COURSE: Procedures: [none] [Critical Care:] No critical care interventions on this patient. Josemanuel Burgess MD Impression & Plan CHF (congestive heart failure), Bilateral leg edema, Elevated troponin I level Past Med/Surg History Social History Preferred Language: [place]ian Communication Ability: Effective Visual Impairment: No Limitations Hearing Ability: Normal Transcription Coordinator Required: No Beliefs That Will Affect Care: None marital status: marital status details: no children Current Living Situation: Alone current occupational status: retired Feels Safe at Home: Yes Smoking Status: Never smoker Age Started Using Tobacco: 19 ; Age Quit Using Tobacco: 61 ; packs per day: 1.5 ; Cigarettes Per Day: 20-40 ; Number of Years Since Quit: 13 ; Second Hand Exposure: No ; Hx Alcohol Use: Yes Alcohol type: hard liquor Alcohol Intake Frequency: Daily Alcohol Intake Frequency Comment: 2-3 bourbons daily Hx Substance Use: No Childhood Exposure to Second-Hand Smoke: No Dental Care, Regularly: Yes Physical Activity Frequency: 3-4 Times per Week Seatbelt Use: always Sunscreen Use: Yes Results & Data Vital Signs Vital Signs - 24 hr 02/15/20 16:51 02/15/20 16:55 02/15/20 17:00 Temperature Temperature Source Pulse Rate 74 74 73 Pulse Rate from SpO2 Sensor 74 Pulse Rhythm Pulse Strength Respiratory Rate 19 14 17 Respiratory Effort / Characteristics Respiratory Depth Respiratory Pattern Blood Pressure 113/72 107/70 Blood Pressure Mean 85 78 Pulse Oximetry 95 Oxygen Delivery Method Room Air Sepsis Recent Fever Within 48 Hours Sepsis Action Taken by Nursing 02/15/20 17:01 02/15/20 17:21 02/15/20 17:30 Temperature 37 C Temperature Source Oral Pulse Rate 73 68 Pulse Rate from SpO2 Sensor 65 Pulse Rhythm Regular Pulse Strength Normal Respiratory Rate 20 17 Respiratory Effort / Characteristics Non-Labored Spontaneous Respiratory Depth Normal Respiratory Pattern Regular Blood Pressure 113/72 92/59 L Blood Pressure Mean 85 64 Pulse Oximetry 93 Oxygen Delivery Method Room Air Room Air Sepsis Recent Fever Within 48 Hours No Sepsis Action Taken by Nursing No Action Required 02/15/20 18:00 02/15/20 18:01 02/15/20 18:51 Temperature Temperature Source Pulse Rate 68 68 69 Pulse Rate from SpO2 Sensor Pulse Rhythm Pulse Strength Respiratory Rate 15 14 24 Respiratory Effort / Characteristics Respiratory Depth Respiratory Pattern Blood Pressure 109/66 Blood Pressure Mean 78 Pulse Oximetry Oxygen Delivery Method Sepsis Recent Fever Within 48 Hours Sepsis Action Taken by Nursing 02/15/20 18:52 Temperature Temperature Source Pulse Rate 69 Pulse Rate from SpO2 Sensor Pulse Rhythm Pulse Strength Respiratory Rate 19 Respiratory Effort / Characteristics Respiratory Depth Respiratory Pattern Blood Pressure 105/71 Blood Pressure Mean 83 Pulse Oximetry Oxygen Delivery Method Sepsis Recent Fever Within 48 Hours Sepsis Action Taken by Nursing Laboratory Data Result diagrams: 02/15/20 17:17 02/15/20 17:17 Lab Results 02/15/20 02/15/20 02/15/20 Range/Units 17:17 17:17 17:17 WBC 7.00 (4.8-10.8) K/uL RBC 3.96 L (4.7-6.1) M/uL Hgb 11.2 L (14.0-18.0) g/dL Hct 33.8 L (42-52) % MCV 85.4 (80-100) fL MCH 28.3 (25-34) pg MCHC 33.1 (32-36) g/dL RDW Std Deviation 61.6 H (36.4-46.3) fL RDW Coeff of Dena 19.4 H (11.5-14.5) % Plt Count 121 L (130-400) K/uL MPV 10.5 H (7.4-10.4) fL Immature Gran % (Auto) 0.4 % Neut % (Auto) 66.1 % Lymph % (Auto) 18.4 % [place] % (Auto) 12.3 % Eos % (Auto) 2.4 % Baso % (Auto) 0.4 % Immature Gran # (Auto) 0.03 H (0.00-0.02) K/uL Neut # (Auto) 4.62 (1.4-6.5) K/uL Lymph # (Auto) 1.29 (1.2-3.4) K/uL [place] # (Auto) 0.86 H (0.11-0.59) K/uL Eos # (Auto) 0.17 (0-0.5) K/uL Baso # (Auto) 0.03 (0-0.2) K/uL PT 15.1 H (9.0-12.0) Seconds INR 1.5 H (0.9-1.1) APTT 29.4 (21.0-31.0) Seconds PTT Ratio 1.1 Sodium 137 (136-145) mmol/L Potassium 3.5 (3.5-5.1) mmol/L Chloride 103 (98-107) mmol/L Carbon Dioxide 28 (21-32) mmol/L Anion Gap 6.0 (3-11) BUN 22 H (7-18) mg/dl Creatinine 1.32 (0.6-1.4) mg/dl Est Cr Clr Drug Dosing Not Reportable Est GFR ( Amer) 61.2 Est GFR (Non-Af Amer) 52.8 BUN/Creatinine Ratio 16.5 (10-20) Glucose 98 (70-99) mg/dl Calcium 8.3 L (8.5-10.1) mg/dl Magnesium 2.0 (1.8-2.4) mg/dl Total Bilirubin 0.3 (0.2-1) mg/dl AST 30 (15-37) U/L ALT 20 (12-78) U/L Alkaline Phosphatase 99 (45-117) U/L Troponin I 0.055 H* (0-0.045) ng/ml NT-Pro-B Natriuret Pep 4044 H (0-900) pg/ml Total Protein 6.7 (6.4-8.2) gm/dl Albumin 2.9 L (3.4-5.0) gm/dl Globulin 3.8 (2.5-4.0) gm/dl Albumin/Globulin Ratio 0.8 L (0.9-2) Specimen Hemolysis Discharge Plan Visit Data Chief Complaint: Swelling/Edema to Extremity Stated Complaint: EDEMA TO LOWER LEGS ED Provider: Josemanuel Burgess Discharge Problem: CHF (congestive heart failure), Bilateral leg edema, Elevated troponin I level Forms Stand Alone Forms: [facility] Framed Data Prescriptions Prescriptions: No Action thiamine HCl (vitamin B1) [Vitamin B-1] 100 mg Tablet 100 mg PO QAM Qty: 30 RF: 0 atorvastatin 80 mg tablet 80 mg PO HS RF: 0 cholecalciferol (vitamin D3) [Vitamin D3] 50 mcg (2,000 unit) capsule 2,000 unit PO QAM RF: 0 divalproex 500 mg Tablet Extended Release 24 Hr 500 mg PO BID Qty: 60 RF: 0 trazodone 50 mg tablet 50 mg PO HS Qty: 30 RF: 0 sotalol 80 mg tablet 80 mg PO BID Qty: 60 RF: 0 clopidogrel [Plavix] 75 mg Tablet 75 mg PO QAM Qty: 30 RF: 0 isosorbide mononitrate 60 mg tablet extended release 24 hr 60 mg PO QAM Qty: 30 RF: 0 losartan 25 mg tablet 25 mg PO HS Qty: 30 RF: 0 omeprazole 20 mg Capsule,Delayed Release(Dr/Ec) 40 mg PO BID Qty: 30 RF: 0 folic acid 1 mg Tablet 1 mg PO QAM Qty: 30 RF: 0 metoprolol succinate 25 mg Tablet Extended Release 24 Hr 25 mg PO HS 30 Days Qty: 30 RF: 0 Eliquis 5 mg tablet 5 mg PO BID Qty: 60 RF: 0 albuterol sulfate 90 mcg/actuation aerosol powdr breath activated 90 mcg INH Q6H PRN (Reason: Shortness Of Breath Or Wheezing) Qty: 30 RF: 0 Trelegy Ellipta 100-62.5-25 mcg blister with device 1 inh inhalation HS Qty: 30 RF: 0 furosemide 20 mg Tablet 60 mg PO QAM Qty: 30 RF: 0 Referrals Referrals: Quirino Hensley MD [Primary Care Provider] -
[2020-02-15 17:26] LABS: Basophils # (auto) 0.03 K/uL (0-0.2); Basophils % (auto) 0.4 %; Eosinophils # (auto) 0.17 K/uL (0-0.5); Eosinophils % (auto) 2.4 %; Hematocrit (blood only) 33.8 % (42-52); Hemoglobin 11.2 g/dL (14.0-18.0); Immature Granulocytes # (auto) 0.03 K/uL (0.00-0.02); Immature Granulocytes % (auto) 0.4 %; Lymphocytes # (auto) 1.29 K/uL (1.2-3.4); Lymphocytes % (auto) 18.4 %; Mean Corpuscular Hemoglobin 28.3 pg (25-34); Mean Corpuscular Hgb Conc 33.1 g/dL (32-36); Mean Corpuscular Volume 85.4 fL (80-100); Mean Platelet Volume 10.5 fL (7.4-10.4); Monocytes # (auto) 0.86 K/uL (0.11-0.59); Monocytes % (auto) 12.3 %; Neutrophils # (auto) 4.62 K/uL (1.4-6.5); Neutrophils % (auto) 66.1 %; Platelet Count 121 K/uL (130-400); RDW Coefficient of Variation 19.4 % (11.5-14.5); RDW Standard Deviation 61.6 fL (36.4-46.3); Red Blood Count 3.96 M/uL (4.7-6.1)
--- NOTE | 2020-02-15 17:33 | XRay Report ---
XR chest 1V portable HISTORY: 75 years-old Male Edema acute shortness of breath with reported pulmonary edema COMPARISON: Chest radiograph 01/26/2020 TECHNIQUE: Portable AP view of the chest FINDINGS: Cardiac silhouette is enlarged, unchanged. Calcified plaque of the thoracic aorta. Unchanged dual-joana d left subclavian pacer/AICD. No pneumothorax, pleural effusion or overt pulmonary edema. Mild chroni c interstitial coarsening of the lung bases. Degenerative changes of the shoulders and spine. IMPRESSION: Cardiomegaly without overt pulmonary edema. ACT 112: Negative or not required by law. The above report was generated using voice recognition software. It may contain grammatical, syntax o r spelling errors. Electronically signed by: Collin Landin M.D. 02/15/2020 5:32 PM
[2020-02-15 17:43] LABS: INR 1.5 (0.9-1.1); Partial Thromboplastin Ratio 1.1; Partial Thromboplastin Time 29.4 Seconds (21.0-31.0); Prothrombin Time 15.1 Seconds (9.0-12.0)
[2020-02-15 17:47] LABS: Alanine Aminotransferase 20 U/L (12-78); Albumin Level 2.9 gm/dl (3.4-5.0); Aspartate Aminotransferase 30 U/L (15-37); BUN Creatinine Ratio 16.5 (10-20); Blood Urea Nitrogen 22 mg/dl (7-18); Calcium 8.3 mg/dl (8.5-10.1); Carbon Dioxide 28 mmol/L (21-32); Chloride 103 mmol/L (98-107); Est GFR (African American) 61.2; Est GFR (Non-African American) 52.8; Glucose 98 mg/dl (70-99); Potassium 3.5 mmol/L (3.5-5.1); Sodium 137 mmol/L (136-145)
[2020-02-15 17:51] LABS: Albumin Globulin Ratio 0.8 (0.9-2); Alkaline Phosphatase 99 U/L (45-117); Bilirubin,Total 0.3 mg/dl (0.2-1); Globulin 3.8 gm/dl (2.5-4.0); NT Pro B Type Natriuretic Pept 4044 pg/ml (0-900); Total Protein 6.7 gm/dl (6.4-8.2); Troponin I 0.055 ng/ml (0-0.045)
--- NOTE | 2020-02-15 19:00 | Ultrasound Report ---
BILATERAL LOWER EXTREMITY VENOUS DOPPLER HISTORY: Acute pain and swelling of the bilateral lower extremities Leg swelling COMPARISON STUDY: Doppler study 08/04/2019. FINDINGS: There is normal compressibility, flow, and augmentation within the bilateral lower extremit y deep venous systems. Mild subcutaneous edema of the lower legs. IMPRESSION: No DVT within the right or left lower extremity. ACT 112: Negative or not required by law. Electronically signed by: Collin Landin M.D. 02/15/2020 6:59 PM
[2020-02-15] MEDS ORDERED: FUROSEMIDE 40 MG/4 ML VIAL IV STA (19:02)
[2020-02-15] MEDS ORDERED: VANCOMYCIN CONSULT ACTIVE PRN (20:25)
--- NOTE | 2020-02-15 21:18 | History & Physical Report ---
Date of Service February 15, 2020 Assessment & Plan (1) Cellulitis of both lower extremities: Place on vancomycin IV and aztreonam IV. Will need to have edema addressed to have sufficient improvement. However, patient is resistant to using diuretics. Present on Admission?: Yes (2) Bilateral leg edema: Bilateral lower extremity edema/hypoalbuminemia- Initially refused the Lasix that the ED wanted to prescribe. He is agreeable to a dose of albumin with Lasix that I will give him tonight, and will reassess him in the a.m. Present on Admission?: Yes (3) Impaired decision making: Impaired decision making/paranoid delusions/Wernicke-Korsakoff syndrome- Patient is agreeable to admission, after long discussion in the ED. He spent considerable time negotiating use of diuretics and other treatments. At this point, he will be cooperative with most of the treatments we have offered. Present on Admission?: Yes (4) Paranoid delusion: See above Present on Admission?: Yes (5) Alcoholic Korsakoff syndrome: See above Present on Admission?: Yes (6) Wernickes encephalopathy: See above Present on Admission?: Yes (7) CAD (coronary artery disease), red [place] coronary artery: CAD/PAD/hypertension/chronic systolic CHF, atrial fibrillation, ischemic cardiomyopathy- Continue clopidogrel, Eliquis, isosorbide mononitrate, losartan, metoprolol succinate, and sotalol. We will hold oral furosemide, and instead give doses of furosemide IV as the patient will let us. He has been refusing to take a number of medications as noted above. Present on Admission?: Yes (8) Chronic systolic CHF (congestive heart failure): See above Present on Admission?: Yes (9) PAD (peripheral artery disease): See above Present on Admission?: Yes (10) Atrial fibrillation: See above Present on Admission?: Yes (11) Ischemic cardiomyopathy: See above Present on Admission?: Yes (12) Seizure: Continue divalproex 500 mg p.o. twice daily Present on Admission?: Yes (13) Hyperlipidemia: Continue atorvastatin 80 mg at bedtime Present on Admission?: Yes (14) Emphysema of lung: Hold Trelegy Ellipta due to nonformulary status. Duo nebs available use every 4 hours as needed Present on Admission?: Yes History of Present Illness Chief Complaint: The patient presents to the emergency department for evaluation of several days of worsening lower extremity edema and more recent development of erythema. Primary Care Provider: Quirino Hensley MD The patient is a 75-year-old male with a past medical history including coronary artery disease, thrombocytopenia, celiac disease, PAD, chronic systolic CHF, gout, pituitary adenoma, seizure disorder, ICD presence, atrial fibrillation, ischemic cardiomyopathy, GERD, hyperlipidemia, hypertension, COPD, Wernicke-Korsakoff syndrome and dementia. He was most recently admitted to [facility] from 01/25-02/12/2020 for issues related to Warnicke Korsakoff' syndrome and dementia and resistance to treatment. He presents to the emergency department via EMS today, due to worsening lower extremity edema and erythema associated with his refusal to take medications. After appropriate work-up in the emergency department tonight, including blood work, ultrasound imaging, chest x-ray and EKG, emergency department physician attempted to prescribe IV Lasix for the patient, however, he refused. I did have discussion with him at length, and he is now agreeable to admission and selective treatment. Allergies Allergy/AdvReac Type Severity Reaction Status Date / Time amoxicillin Allergy Intermediate Symmetrical Verified 02/15/20 17:36 drug-related intertriginous flexural exanthema lactose AdvReac Intermediate GI SYMPTOMS Verified 02/15/20 17:36 benzalkonium chloride AdvReac Mild ITCHING/SWE Verified 02/15/20 17:36 LLING/RASH gluten AdvReac Unknown gluten Verified 02/15/20 17:36 intolerant per EGD Home Medications Home Medications Medication Instructions Recorded Confirmed Type thiamine HCl (vitamin B1) [Vitamin 100 mg PO QAM #30 tab 01/11/20 02/15/20 Rx B-1] Eliquis 5 mg PO BID #60 tab 02/11/20 02/15/20 Rx Trelegy Ellipta 1 inh INHALATION HS #30 ea 02/11/20 02/15/20 Rx albuterol sulfate 90 mcg INH Q6H PRN #30 ea 02/11/20 02/15/20 Rx clopidogrel [Plavix] 75 mg PO QAM #30 tab 02/11/20 02/15/20 Rx divalproex 500 mg PO BID #60 tab 02/11/20 02/15/20 Rx folic acid 1 mg PO QAM #30 tab 02/11/20 02/15/20 Rx isosorbide mononitrate 60 mg PO QAM #30 tab 02/11/20 02/15/20 Rx losartan 25 mg PO HS #30 tab 02/11/20 02/15/20 Rx metoprolol succinate 25 mg PO HS 30 Days #30 tab 02/11/20 02/15/20 Rx omeprazole 40 mg PO BID #30 cap 02/11/20 02/15/20 Rx sotalol 80 mg PO BID #60 tab 02/11/20 02/15/20 Rx trazodone 50 mg PO HS #30 tab 02/11/20 02/15/20 Rx furosemide 60 mg PO QAM #30 tab 02/12/20 02/15/20 Rx atorvastatin 80 mg PO HS 02/15/20 02/15/20 History cholecalciferol (vitamin D3) 2,000 unit PO QAM 02/15/20 02/15/20 History [Vitamin D3] Past Med/Surg History Social History Preferred Language: Uzbek Communication Ability: Effective Visual Impairment: No Limitations Hearing Ability: Normal Woods Warden Required: No Beliefs That Will Affect Care: None marital status: marital status details: no children Current Living Situation: [place] current occupational status: retired Other Information That Helps Us Care for You: No Feels Safe at Home: Yes Safety Concerns: Feels Safe At This Time Smoking Status: Never smoker Age Started Using Tobacco: 19 ; Age Quit Using Tobacco: 61 ; packs per day: 1.5 ; Cigarettes Per Day: 20-40 ; Number of Years Since Quit: 13 ; Second Hand Exposure: No ; Hx Alcohol Use: No Hx Substance Use: No Childhood Exposure to Second-Hand Smoke: No Dental Care, Regularly: Yes Physical Activity Frequency: 3-4 Times per Week Seatbelt Use: always Sunscreen Use: Yes Review of Systems Review of Systems: The patient denies chest pain, palpitations, cough, sore throat, fevers, chills, sweats, nausea, vomiting, diarrhea , constipation, abdominal pain, pelvic pain, blood in urine or stool, dysuria, urinary frequency or urgency, lightheadedness, dizziness, headache, loss of consciousness, rash, abnormal bruising or bleeding, imbalance, focal or generalized weakness, numbness or tingling in arms, generalized arthralgias or myalgias, back or neck pain, or night sweats. The review of systems is otherwise negative other than for that already noted above, and at least 10 systems have been reviewed. Physical Exam Physical Exam: The patient is awake and alert, normocephalic and atraumatic, standing upright in the room, and in no acute distress. HEENT--PERRL, EOMI, mucous membranes and oropharynx normal Neck--supple. No JVD. No bruits. Thyroid normal, trachea midline, no adenopathy. Heart--normal S1 and S2. No murmurs, rubs or gallops. Lungs--few crackles at the bases bilaterally. No respiratory distress, no accessory muscle use. Abdomen--normal bowel sounds and soft. Nontender. Nondistended. Extremities--no cyanosis or clubbing. 3+ bilateral pretibial and pedal pitting edema. Dermatologic--moderately severe erythema right foot and tibia greater than left Neurologic--cranial nerves II through XII grossly intact. Rheumatologic--normal range of motion. Psychiatric--anxious. Results & Data Vital Signs (Past 12 Hours) Vital Signs Temp Pulse Pulse Resp BP BP Pulse Ox 02/15/20 20:00 62 20 126/76 96 02/15/20 18:52 69 19 105/71 96 02/15/20 18:51 69 24 02/15/20 18:01 68 14 02/15/20 18:00 68 15 109/66 02/15/20 17:30 68 17 92/59 L 02/15/20 17:01 98.6 F 73 20 113/72 93 02/15/20 17:00 73 17 107/70 95 02/15/20 16:55 74 14 02/15/20 16:51 74 19 113/72 Laboratory Results Laboratory Results WBC 7.00 K/uL (4.8-10.8) 02/15/20 17:17 RBC 3.96 M/uL (4.7-6.1) L 02/15/20 17:17 Hgb 11.2 g/dL (14.0-18.0) L 02/15/20 17:17 Hct 33.8 % (42-52) L 02/15/20 17:17 MCV 85.4 fL (80-100) 02/15/20 17:17 MCH 28.3 pg (25-34) 02/15/20 17:17 MCHC 33.1 g/dL (32-36) 02/15/20 17:17 RDW Std Deviation 61.6 fL (36.4-46.3) H 02/15/20 17:17 RDW Coeff of Dena 19.4 % (11.5-14.5) H 02/15/20 17:17 Plt Count 121 K/uL (130-400) L 02/15/20 17:17 MPV 10.5 fL (7.4-10.4) H 02/15/20 17:17 Immature Gran % (Auto) 0.4 % 02/15/20 17:17 Neut % (Auto) 66.1 % 02/15/20 17:17 Lymph % (Auto) 18.4 % 02/15/20 17:17 [place] % (Auto) 12.3 % 02/15/20 17:17 Eos % (Auto) 2.4 % 02/15/20 17:17 Baso % (Auto) 0.4 % 02/15/20 17:17 Immature Gran # (Auto) 0.03 K/uL (0.00-0.02) H 02/15/20 17:17 Neut # (Auto) 4.62 K/uL (1.4-6.5) 02/15/20 17:17 Lymph # (Auto) 1.29 K/uL (1.2-3.4) 02/15/20 17:17 [place] # (Auto) 0.86 K/uL (0.11-0.59) H 02/15/20 17:17 Eos # (Auto) 0.17 K/uL (0-0.5) 02/15/20 17:17 Baso # (Auto) 0.03 K/uL (0-0.2) 02/15/20 17:17 PT 15.1 Seconds (9.0-12.0) H 02/15/20 17:17 INR 1.5 (0.9-1.1) H 02/15/20 17:17 APTT 29.4 Seconds (21.0-31.0) 02/15/20 17:17 PTT Ratio 1.1 02/15/20 17:17 Sodium 137 mmol/L (136-145) 02/15/20 17:17 Potassium 3.5 mmol/L (3.5-5.1) 02/15/20 17:17 Chloride 103 mmol/L (98-107) 02/15/20 17:17 Carbon Dioxide 28 mmol/L (21-32) 02/15/20 17:17 Anion Gap 6.0 (3-11) 02/15/20 17:17 BUN 22 mg/dl (7-18) H 02/15/20 17:17 Creatinine 1.32 mg/dl (0.6-1.4) 02/15/20 17:17 Est Cr Clr Drug Dosing Not Reportable 02/15/20 17:17 Est GFR ( Amer) 61.2 02/15/20 17:17 Est GFR (Non-Af Amer) 52.8 02/15/20 17:17 BUN/Creatinine Ratio 16.5 (10-20) 02/15/20 17:17 Glucose 98 mg/dl (70-99) 02/15/20 17:17 POC Glucose 90 mg/dl (70-99) 02/15/20 23:42 Calcium 8.3 mg/dl (8.5-10.1) L 02/15/20 17:17 Magnesium 2.0 mg/dl (1.8-2.4) 02/15/20 17:17 Total Bilirubin 0.3 mg/dl (0.2-1) 02/15/20 17:17 AST 30 U/L (15-37) 02/15/20 17:17 ALT 20 U/L (12-78) 02/15/20 17:17 Alkaline Phosphatase 99 U/L (45-117) 02/15/20 17:17 Troponin I 0.055 ng/ml (0-0.045) H* 02/15/20 17:17 NT-Pro-B Natriuret Pep 4044 pg/ml (0-900) H 02/15/20 17:17 Total Protein 6.7 gm/dl (6.4-8.2) 02/15/20 17:17 Albumin 2.9 gm/dl (3.4-5.0) L 02/15/20 17:17 Globulin 3.8 gm/dl (2.5-4.0) 02/15/20 17:17 Albumin/Globulin Ratio 0.8 (0.9-2) L 02/15/20 17:17 Specimen Hemolysis 02/15/20 17:17 Urine Color Yellow 02/16/20 01:00 Urine Appearance Cloudy (Clear) A 02/16/20 01:00 Urine pH 6.5 (4.5-7.5) 02/16/20 01:00 Ur Specific [place] 1.013 (1.000-1.030) 02/16/20 01:00 Urine Protein Negative (Negative) 02/16/20 01:00 Urine Glucose (UA) Negative (Negative) 02/16/20 01:00 Urine Ketones Negative (Negative) 02/16/20 01:00 Urine Blood Negative (Negative) 02/16/20 01:00 Urine Nitrite Negative (Negative) 02/16/20 01:00 Urine Bilirubin Negative (Negative) 02/16/20 01:00 Urine Urobilinogen Negative (Negative) 02/16/20 01:00 Ur Leukocyte Esterase Negative (Negative) 02/16/20 01:00 Urine WBC (Auto) 0 /hpf (0-5) 02/16/20 01:00 Urine RBC (Auto) 0-4 /hpf (0-4) 02/16/20 01:00 U Hyaline Cast (Auto) 1-5 /lpf (0-5) 02/16/20 01:00 U Epithel Cells (Auto) 0-5 /lpf (0-5) 02/16/20 01:00 Urine Bacteria (Auto) Negative (Negative) 02/16/20 01:00 Nasal Screen MRSA (PCR) Negative (Negative) 02/16/20 01:00 [phone] Report Patient: BERYL JEFFERSONAdmit Date: 02/15/20 MR#: [id number]: [address] [place] [address] Acct ID:[id number]: Date: 1945ity Zip: [place] [id number] Age: 75Location: ED Sex: M Room/Bed: Att Phy:Diagnosis: EDEMA TO LOWER LEGS Erin Phy: Quirino Hensley, MDService Date: 02/15/20 Fam Phy:Interpreting Phy: Dewayne Landin Admit Phy: Ordering Phy: Josemanuel Burgess MD cc: ~ XR chest 1V portable HISTORY: 75 years-old Male Edema acute shortness of breath with reported pulmonary edema COMPARISON: Chest radiograph 01/26/2020 TECHNIQUE: Portable AP view of the chest FINDINGS: Cardiac silhouette is enlarged, unchanged. Calcified plaque of the thoracic aorta. Unchanged dual-lead left subclavian pacer/AICD. No pneumothorax, pleural effusion or overt pulmonary edema. Mild chronic interstitial coarsening of the lung bases. Degenerative changes of the shoulders and spine. IMPRESSION: Cardiomegaly without overt pulmonary edema. ACT 112: Negative or not required by law. The above report was generated using voice recognition software. It may contain grammatical, syntax or spelling errors. Electronically signed by: Collin Landin M.D. 02/15/2020 5:32 PM Dictated: 02/15/201730 Transcribed: 02/15/201730 [place], [place] [phone] Ultrasound Report Patient: BERYL JEFFERSONAdmit Date: 02/15/20 MR#: [id number]: [address] [place] [address] DR Acct ID:[id number]: Date: 1945[facility] Zip: [place] [address] Age: 75Location: ED Sex: M Room/Bed: Att Phy:Diagnosis: EDEMA TO LOWER LEGS Erin Phy: Quirino Hensley, MDService Date: 02/15/20 Fam Phy:Interpreting Phy: Dewayne Landin Admit Phy: Ordering Phy: Josemanuel Burgess MD cc: ~ BILATERAL LOWER EXTREMITY VENOUS DOPPLER HISTORY: Acute pain and swelling of the bilateral lower extremities Leg swelling COMPARISON STUDY: Doppler study 08/04/2019. FINDINGS: There is normal compressibility, flow, and augmentation within the bilateral lower extremity deep venous systems. Mild subcutaneous edema of the lower legs. IMPRESSION: No DVT within the right or left lower extremity. ACT 112: Negative or not required by law. Electronically signed by: Collin Landin M.D. 02/15/2020 6:59 PM Dictated: 02/15/201857 Transcribed: 02/15/201857 Code Status & VTE Plan Code Status Full code VTE Prophylaxis Plan VTE Prophylaxis will be ordered: Yes PG Care Time/CCT Total # of Minutes Spent Total Time Spent with Patient: Total time spent is greater than 50% in coordination of care (as documented) at patient's floor/unit and/or counseling patient: Coding Level of Care Code 56632 Initial Inpt Care Lvl 3 Diagnoses Cellulitis of both lower extremities L03.115; L03.116 Bilateral leg edema R60.0 Impaired decision making Z78.9 Paranoid delusion F22 Alcoholic Korsakoff syndrome F10.96 Wernickes encephalopathy E51.2 CAD (coronary artery disease), red cliff coronary artery I25.118 [place] vs. transplanted heart: red cliff heart Associated angina: with stable angina Chronic systolic CHF (congestive heart failure) I50.22 PAD (peripheral artery disease) I73.9 Atrial fibrillation I48.91 Atrial fibrillation type: unspecified Ischemic cardiomyopathy I25.5 Seizure R56.9 Hyperlipidemia E78.5 Hyperlipidemia type: unspecified Emphysema of lung J43.9 (1) CAD (coronary artery disease), red cliff coronary artery [place] vs. transplanted heart: red cliff heart Associated angina: with stable angina Qualified Code(s): I25.118 - Atherosclerotic heart disease of red cliff coronary artery with other forms of angina pectoris (2) Atrial fibrillation Atrial fibrillation type: unspecified Qualified Code(s): I48.91 - Unspecified atrial fibrillation (3) Hyperlipidemia Hyperlipidemia type: unspecified Qualified Code(s): E78.5 - Hyperlipidemia, unspecified
[2020-02-15] MEDS ORDERED: VANCOMYCIN HCL 2,000 MG in SODIUM CHLORIDE 0.9% 500 ML IV ONE (21:45)
[2020-02-15] MEDS ORDERED: ACETAMINOPHEN 325 MG TAB PO PRN (21:47)
[2020-02-15] MEDS ORDERED: NITROGLYCERIN SL 0.4 MG/TAB TAB SL PRN (21:47)
[2020-02-15] MEDS ORDERED: MAGNESIUM HYDROXIDE SUSP 30 ML UDC PO PRN (21:47)
[2020-02-15] MEDS ORDERED: GLUCOSE 10 TABS/TUBE PO PRN (21:47)
[2020-02-15] MEDS ORDERED: ONDANSETRON INJ 2 MG/ML 2 ML VIAL IV PRN (21:47)
[2020-02-15] MEDS ORDERED: GLUCAGON FOR INJ 1 MG VIAL SQ PRN (21:47)
[2020-02-15] MEDS ORDERED: GLUCOSE 40% GEL 15 GM TUBE PO PRN (21:47)
[2020-02-15] MEDS ORDERED: CARBOHYDRATES FOR HYPOGLYCEMIA PO PRN (21:47)
[2020-02-15] MEDS ORDERED: DEXTROSE 50% 50 ML SYRINGE IV PRN (21:47)
[2020-02-15] MEDS ORDERED: ALUMINUM/MAGNESIUM SUSP 30 ML UDC PO PRN (21:47)
--- NOTE | 2020-02-15 21:49 | Pharmacy Report ---
Pharmacy Abx Initial Consult - Date of Service February 15, 2020 - Pharmacy Dosing Scope Date of Consult: 02/15/20 Consultation requested by: Dr. COFFEY Pharmacy is consulted to initiate VANCO IV dosing therapy, order appropriate labs and adjust drug dose/frequency. - Subjective The patient is a 75 year old M admitted on 02/15/20 20:14. - Objective Weight: 78.7 kg Vital Signs (Past 12hrs): Vital Signs Temp Pulse Pulse Resp BP BP Pulse Ox 02/15/20 20:00 62 20 126/76 96 02/15/20 18:52 69 19 105/71 96 02/15/20 18:51 69 24 02/15/20 18:01 68 14 02/15/20 18:00 68 15 109/66 02/15/20 17:30 68 17 92/59 L 02/15/20 17:01 37 C 73 20 113/72 93 02/15/20 17:00 73 17 107/70 95 02/15/20 16:55 74 14 02/15/20 16:51 74 19 113/72 Lab Results (24hrs): Laboratory Tests (24 Hours) 02/15/20 02/15/20 17:17 17:17 WBC 7.00 Neut # (Auto) 4.62 Creatinine 1.32 Est Cr Clr Drug Dosing Not Reportable - Risk Factors for Resistance * Hospitalization for 48 hours or more within the past 90 days - Assessment & Plan Assessment 75 year old M initiated on Vanco + Aztreonam for lower extremity SST. Plan Patient meets criteria for vancomycin AUC dosing nomogram AUC/DANIELLE is the preferred PK/PD target for vancomycin Target AUC/DANIELLE = 400-600 AUC guided dosing is effective and associated with decreased risk of nephrotoxicity Pharmacy will continue to follow and will adjust dose/frequency as necessary. Thank you.
[2020-02-15] MEDS ORDERED: ALBUMIN 25% 50 ML with FUROSEMIDE 40 MG IV ONE (22:00)
[2020-02-15] MEDS ORDERED: ALBUTEROL HFA 8 GM INHALER INH PRN (22:08)
[2020-02-15] MEDS: METOPROLOL SUCC 25MG EXT REL TAB PO SCH (23:24)
[2020-02-15] MEDS: ATORVASTATIN 40 MG TAB PO SCH (23:24)
[2020-02-15] MEDS: PANTOprazole 40 MG TAB PO SCH (23:24)
[2020-02-15] MEDS: APIXABAN 5 MG TABLET PO SCH (23:25)
[2020-02-15] MEDS: LOSARTAN POTASSIUM 25 MG TAB PO SCH (23:25)
[2020-02-15] MEDS: DIVALPROEX EXTENDED RELEASE 500 MG TAB PO SCH (23:25)
[2020-02-15] MEDS: SOTALOL HCL 80 MG TAB PO SCH (23:26)
[2020-02-15] MEDS: TRAZODONE HCL 50 MG TAB PO SCH (23:26)
[2020-02-15] MEDS: INSULIN ASPART 100 UNITS/ML 3 ML PEN SC SCH (23:43)
[2020-02-15] MEDS: AZTREONAM 1,000 MG in DEXTROSE 5% 100 ML IV SCH (23:52)
[2020-02-16 01:13] LABS: Appearance Urine Cloudy (Clear); Bacteria Urine Automated Negative (Negative); Bilirubin Urine Negative (Negative); Blood Urine Negative (Negative); Color Urine Yellow; Epithelial Cell Urine Auto 0-5 /lpf (0-5); Glucose Urine UA Negative (Negative); Ketones Urine Negative (Negative); Leukocyte Esterase Urine Negative (Negative); Nitrite Urine Negative (Negative); Protein Urine Negative (Negative); RBC Urine Automated 0-4 /hpf (0-4); Specific Gravity Urine 1.013 (1.000-1.030); Urobilinogen Urine Negative (Negative); WBC Urine Automated 0 /hpf (0-5); pH Urine 6.5 (4.5-7.5)
[2020-02-16] MEDS: AZTREONAM 1,000 MG in DEXTROSE 5% 100 ML IV SCH ×2 (06:00→14:41)
[2020-02-16] MEDS ORDERED: ALBUT/IPRATROP 3MG/0.5MG NEB 3 ML VIAL NEB PRN (06:01)
[2020-02-16] MEDS: INSULIN ASPART 100 UNITS/ML 3 ML PEN SC SCH ×4 (08:04→21:07)
[2020-02-16] MEDS: APIXABAN 5 MG TABLET PO SCH ×2 (08:06→21:06)
[2020-02-16] MEDS: DIVALPROEX EXTENDED RELEASE 500 MG TAB PO SCH ×2 (08:06→21:05)
[2020-02-16] MEDS: CHOLECALCIFEROL 1,000 UNITS 25 MCG TAB PO SCH (08:06)
[2020-02-16] MEDS: SOTALOL HCL 80 MG TAB PO SCH ×2 (08:06→21:06)
[2020-02-16] MEDS: ISOSORBIDE MONO EXTENDED REL 60 MG TABCR PO SCH (08:07)
[2020-02-16] MEDS: FOLIC ACID 1 MG TAB PO SCH (08:07)
[2020-02-16] MEDS: PANTOprazole 40 MG TAB PO SCH ×2 (08:07→21:05)
[2020-02-16] MEDS: THIAMINE HCL 100 MG TAB PO SCH (08:07)
[2020-02-16] MEDS: CLOPIDOGREL BISULFATE 75 MG TAB PO SCH (08:07)
[2020-02-16 08:35] LABS: Creatinine Clr Calc Pharmacy 60.9 ml/min; Est GFR (African American) 82.6; Est GFR (Non-African American) 71.2
[2020-02-16] MEDS ORDERED: VANCOMYCIN HCL 1,000 MG in SODIUM CHLORIDE 0.9% 250 ML IV SCH (10:00)
--- NOTE | 2020-02-16 16:24 | Electrocardiogram Report ---
Test Reason : Blood Pressure : / mmHG Vent. Rate : 061 BPM Atrial Rate : 061 BPM P-R Int : 272 ms QRS Dur : 120 ms QT Int : 498 ms P-R-T Axes : -13 -16 122 degrees QTc Int : 501 ms Atrial-paced rhythm with prolonged AV conduction Inferior infarct (cited on or before 04-JUN-1995) Anterior infarct (cited on or before 10-JUN-2014) Abnormal ECG When compared with ECG of 15-FEB-2020 17:24, (unconfirmed) Electronic atrial pacemaker has replaced Sinus rhythm Nonspecific T wave abnormality now evident in Inferior leads Confirmed by Matthew Meng ([id number]) on 02/16/2020 4:24:31 PM Referred By: REFERRED SELF Confirmed By:Yordan Meng
--- NOTE | 2020-02-16 16:31 | Electrocardiogram Report ---
Test Reason : Blood Pressure : / mmHG Vent. Rate : 070 BPM Atrial Rate : 070 BPM P-R Int : 214 ms QRS Dur : 110 ms QT Int : 482 ms P-R-T Axes : 023 -21 108 degrees QTc Int : 520 ms Sinus rhythm with 1st degree A-V block with occasional Premature ventricular complexes Inferior infarct (cited on or before 04-JUN-1995) Abnormal ECG When compared with ECG of 30-JAN-2020 06:31, AR interval has increased ST no longer depressed in Anterior leads T wave inversion no longer evident in Lateral leads Confirmed by Matthew Meng ([id number]) on 02/16/2020 4:31:13 PM Referred By: REFERRED SELF Confirmed By:Yordan Meng
--- NOTE | 2020-02-16 16:46 | Hospitalist Progress Note ---
Date of Service February 16, 2020 Assessment & Plan (1) Cellulitis of both lower extremities: Was placed on vancomycin IV and aztreonam IV. However aside from erythema, no warmth or tenderness to palpation. No other signs noted on H and P. will stop antibiotics. Will need to have edema addressed to have sufficient improvement. However, patient is resistant to using diuretics. Will continue to use this however. Will also touch base with ID. (2) Bilateral leg edema: Bilateral lower extremity edema/hypoalbuminemia- Patient will receive additional dose of lasix on 02/15 (3) Impaired decision making: Impaired decision making/paranoid delusions/Wernicke-Korsakoff syndrome- He spent considerable time negotiating use of diuretics and other treatments. At this point, he will be cooperative with most of the treatments we have offered. (4) Paranoid delusion: See above (5) Alcoholic Korsakoff syndrome: See above (6) Wernickes encephalopathy: See above (7) CAD (coronary artery disease), nikolai coronary artery: CAD/PAD/hypertension/chronic systolic CHF, atrial fibrillation, ischemic cardiomyopathy- Continue clopidogrel, Eliquis, isosorbide mononitrate, losartan, metoprolol succinate, and sotalol. will continue with He has been refusing to take a number of medications as noted above. (8) Chronic systolic CHF (congestive heart failure): See above (9) PAD (peripheral artery disease): See above (10) Atrial fibrillation: See above (11) Ischemic cardiomyopathy: See above (12) Seizure: Continue divalproex 500 mg p.o. twice daily (13) Hyperlipidemia: Continue atorvastatin 80 mg at bedtime (14) Emphysema of lung: Hold Trelegy Ellipta due to nonformulary status. Duo nebs available use every 4 hours as needed Admission and Anticipated Discharge Date Admission Date: February 15, 2020 Subjective Patient is a poor historian. Patient has no new complaints at this time. Denies any warmth, or pain to palpation on his feet. Review of Systems Review of Systems: The patient denies chest pain, palpitations, cough, sore throat, fevers, chills, sweats, nausea, vomiting, diarrhea , constipation, abdominal pain, pelvic pain, blood in urine or stool, dysuria, urinary frequency or urgency, lightheadedness, dizziness, headache, loss of consciousness, rash, abnormal bruising or bleeding, imbalance, focal or generalized weakness, numbness or tingling in arms, generalized arthralgias or myalgias, back or neck pain, or night sweats. The review of systems is otherwise negative other than for that already noted above, and at least 10 systems have been reviewed. Physical Exam Physical Exam: The patient is awake and alert, normocephalic and atraumatic, standing upright in the room, and in no acute distress. HEENT--PERRL, EOMI, mucous membranes and oropharynx normal Neck--supple. No JVD. No bruits. Thyroid normal, trachea midline, no adenopathy. Heart--normal S1 and S2. No murmurs, rubs or gallops. Lungs--few crackles at the bases bilaterally. No respiratory distress, no accessory muscle use. Abdomen--normal bowel sounds and soft. Nontender. Nondistended. Extremities--no cyanosis or clubbing. 3+ bilateral pretibial and pedal pitting edema. Both feet appear red, but not tender to palpation, and not warm to touch. Dermatologic--moderately severe erythema right foot and tibia greater than left Neurologic--cranial nerves II through XII grossly intact. Rheumatologic--normal range of motion. Results & Data ([place]) Vital Signs (Past 12 Hours) Vital Signs Temp Pulse Pulse Resp BP BP Pulse Ox 02/16/20 15:21 36.5 C 18 107/69 97 02/16/20 11:30 36.3 C L 62 18 101/75 95 02/16/20 07:30 36.3 C L 63 18 107/70 97 02/16/20 06:17 36.3 C L 61 18 90/51 L 91 PG Care Time/CCT Total # of Minutes Spent Total Time Spent with Patient: Total time spent is greater than 50% in coordination of care (as documented) at patient's floor/unit and/or counseling patient: Coding Level of Care Code 20904 Subseq Hosp Care Lvl 3 Diagnoses Cellulitis of both lower extremities L03.115; L03.116 Bilateral leg edema R60.0 Impaired decision making Z78.9 Paranoid delusion F22 Alcoholic Korsakoff syndrome F10.96 Wernickes encephalopathy E51.2 CAD (coronary artery disease), nikolai coronary artery I25.118 Associated angina: with stable angina [place] vs. transplanted heart: [place]ol[place] heart Chronic systolic CHF (congestive heart failure) I50.22 PAD (peripheral artery disease) I73.9 Atrial fibrillation I48.91 Atrial fibrillation type: unspecified Ischemic cardiomyopathy I25.5 Seizure R56.9 Hyperlipidemia E78.5 Hyperlipidemia type: unspecified Emphysema of lung J43.9 Time Spent (min) 35 (1) Atrial fibrillation Atrial fibrillation type: unspecified Qualified Code(s): I48.91 - Unspecified atrial fibrillation (2) Hyperlipidemia Hyperlipidemia type: unspecified Qualified Code(s): E78.5 - Hyperlipidemia, unspecified (3) CAD (coronary artery disease), nikolai coronary artery Associated angina: with stable angina [place] vs. transplanted heart: nikolai heart Qualified Code(s): I25.118 - Atherosclerotic heart disease of nikolai coronary artery with other forms of angina pectoris
[2020-02-16] MEDS ORDERED: FUROSEMIDE 40 MG in SYRINGE 0 ML IV ONE (16:50)
[2020-02-16] MEDS: LOSARTAN POTASSIUM 25 MG TAB PO SCH (21:05)
[2020-02-16] MEDS: METOPROLOL SUCC 25MG EXT REL TAB PO SCH (21:06)
[2020-02-16] MEDS: ATORVASTATIN 40 MG TAB PO SCH (21:06)
[2020-02-16] MEDS: POTASSIUM CHLORIDE 20 MEQ TABCR PO SCH (21:06)
[2020-02-16] MEDS: TRAZODONE HCL 50 MG TAB PO SCH (21:07)
[2020-02-17 06:37] LABS: Est GFR (African American) 74.6; Est GFR (Non-African American) 64.4
[2020-02-17] MEDS: SOTALOL HCL 80 MG TAB PO SCH ×2 (08:38→20:32)
[2020-02-17] MEDS: PANTOprazole 40 MG TAB PO SCH ×2 (08:38→20:32)
[2020-02-17] MEDS: CHOLECALCIFEROL 1,000 UNITS 25 MCG TAB PO SCH (08:38)
[2020-02-17] MEDS: CLOPIDOGREL BISULFATE 75 MG TAB PO SCH (08:38)
[2020-02-17] MEDS: DIVALPROEX EXTENDED RELEASE 500 MG TAB PO SCH ×2 (08:39→20:33)
[2020-02-17] MEDS: INSULIN ASPART 100 UNITS/ML 3 ML PEN SC SCH ×4 (08:39→21:34)
[2020-02-17] MEDS: POTASSIUM CHLORIDE 20 MEQ TABCR PO SCH ×2 (08:39→20:31)
[2020-02-17] MEDS: APIXABAN 5 MG TABLET PO SCH ×2 (08:39→20:32)
[2020-02-17] MEDS: THIAMINE HCL 100 MG TAB PO SCH (08:39)
[2020-02-17] MEDS: FOLIC ACID 1 MG TAB PO SCH (08:39)
[2020-02-17] MEDS: ISOSORBIDE MONO EXTENDED REL 60 MG TABCR PO SCH (08:39)
--- NOTE | 2020-02-17 14:29 | Electrocardiogram Report ---
Test Reason : Blood Pressure : / mmHG Vent. Rate : 061 BPM Atrial Rate : 061 BPM P-R Int : 262 ms QRS Dur : 112 ms QT Int : 476 ms P-R-T Axes : 017 -02 078 degrees QTc Int : 479 ms Atrial-paced rhythm with prolonged AV conduction Poor R wave progression, consider anterior DC vs. lead placement vs. LVH Inferior infarct (cited on or before 04-JUN-1995) Abnormal ECG When compared with ECG of 16-FEB-2020 06:56, No significant change was found Confirmed by Matthew Meng ([id number]) on 02/17/2020 2:29:09 PM Referred By: REFERRED SELF Confirmed By:Yordan Meng
[2020-02-17] MEDS: ATORVASTATIN 40 MG TAB PO SCH (20:31)
[2020-02-17] MEDS: METOPROLOL SUCC 25MG EXT REL TAB PO SCH (20:31)
[2020-02-17] MEDS: TRAZODONE HCL 50 MG TAB PO SCH (20:32)
[2020-02-17] MEDS: LOSARTAN POTASSIUM 25 MG TAB PO SCH (20:33)
--- NOTE | 2020-02-17 22:42 | Hospitalist Progress Note ---
Date of Service February 17, 2020 Assessment & Plan (1) Cellulitis of both lower extremities: Was placed on vancomycin IV and aztreonam IV. THIS WAS STOPPED ON 02/15, as no significant signs of cellulitis. But will resume ceftriaxone as redness appears slightly worse and foot is warmer. Will need to have edema addressed to have sufficient improvement. Will order a repeat dose of lasix in AM. may consider lolis socks. . (2) Bilateral leg edema: Bilateral lower extremity edema/hypoalbuminemia- Patient received additional dose of lasix on 02/15 (3) Impaired decision making: Impaired decision making/paranoid delusions/Wernicke-Korsakoff syndrome- He spent considerable time negotiating use of diuretics and other treatments. At this point, he will be cooperative with most of the treatments we have offered. (4) Paranoid delusion: See above (5) Alcoholic Korsakoff syndrome: See above (6) Wernickes encephalopathy: See above (7) CAD (coronary artery disease), [place] coronary artery: CAD/PAD/hypertension/chronic systolic CHF, atrial fibrillation, ischemic cardiomyopathy- Continue clopidogrel, Eliquis, isosorbide mononitrate, losartan, metoprolol succinate, and sotalol. will continue with He has been refusing to take a number of medications as noted above. (8) Chronic systolic CHF (congestive heart failure): See above (9) PAD (peripheral artery disease): See above (10) Atrial fibrillation: See above (11) Ischemic cardiomyopathy: See above (12) Seizure: Continue divalproex 500 mg p.o. twice daily (13) Hyperlipidemia: Continue atorvastatin 80 mg at bedtime (14) Emphysema of lung: Hold Trelegy Ellipta due to nonformulary status. Duo nebs available use every 4 hours as needed Admission and Anticipated Discharge Date Admission Date: February 15, 2020 Subjective 75 yo male reports no new symptoms. Patient discusses other topics such as coronoavirus outbreak. Review of Systems Review of Systems: All systems reviewed & are unremarkable except as noted in HPI & below Physical Exam Physical Exam: The patient is awake and alert, normocephalic and atraumatic, standing upright in the room, and in no acute distress. HEENT--PERRL, EOMI, mucous membranes and oropharynx normal Neck--supple. No JVD. No bruits. Thyroid normal, trachea midline, no adenopathy. Heart--normal S1 and S2. No murmurs, rubs or gallops. Lungs--few crackles at the bases bilaterally. No respiratory distress, no accessory muscle use. Abdomen--normal bowel sounds and soft. Nontender. Nondistended. Extremities--no cyanosis or clubbing. 3+ bilateral pretibial and pedal pitting edema. Both feet appear red, but not tender to palpation, however today it is warm to touch. Dermatologic--moderately severe erythema right foot and tibia greater than left Neurologic--cranial nerves II through XII grossly intact. Rheumatologic--normal range of motion. Results & Data ([facility]) Vital Signs (Past 12 Hours) Vital Signs Temp Pulse Resp BP Pulse Ox 02/17/20 18:52 36.5 C 63 18 115/71 97 02/17/20 15:24 36.5 C 61 17 113/71 97 02/17/20 11:17 36.4 C L 64 18 106/69 96 PG Care Time/CCT Total # of Minutes Spent Total Time Spent with Patient: Total time spent is greater than 50% in coordination of care (as documented) at patient's floor/unit and/or counseling patient: Coding Level of Care Code 97380 Subseq Hosp Care Lvl 3 Diagnoses Cellulitis of both lower extremities L03.115; L03.116 Bilateral leg edema R60.0 Impaired decision making Z78.9 Paranoid delusion F22 Alcoholic Korsakoff syndrome F10.96 Wernickes encephalopathy E51.2 CAD (coronary artery disease), [place] coronary artery I25.118 Associated angina: with stable angina [place] vs. transplanted heart: [place] heart Chronic systolic CHF (congestive heart failure) I50.22 PAD (peripheral artery disease) I73.9 Atrial fibrillation I48.91 Atrial fibrillation type: unspecified Ischemic cardiomyopathy I25.5 Seizure R56.9 Hyperlipidemia E78.5 Hyperlipidemia type: unspecified Emphysema of lung J43.9 Time Spent (min) 35 (1) Atrial fibrillation Atrial fibrillation type: unspecified Qualified Code(s): I48.91 - Unspecified atrial fibrillation (2) Hyperlipidemia Hyperlipidemia type: unspecified Qualified Code(s): E78.5 - Hyperlipidemia, unspecified (3) CAD (coronary artery disease), [place] coronary artery Associated angina: with stable angina [place] vs. transplanted heart: [place] heart Qualified Code(s): I25.118 - Atherosclerotic heart disease of [place] coronary artery with other forms of angina pectoris
[2020-02-18] MEDS: cefTRIAXone SODIUM 1,000 MG in DEXTROSE 5% 50 ML IV SCH ×2 (00:14→23:38)
[2020-02-18 06:18] LABS: Creatinine Clr Calc Pharmacy 56.5 ml/min; Est GFR (African American) 75.4; Est GFR (Non-African American) 65.1
[2020-02-18] MEDS: INSULIN ASPART 100 UNITS/ML 3 ML PEN SC SCH ×4 (07:34→21:27)
[2020-02-18] MEDS: CHOLECALCIFEROL 1,000 UNITS 25 MCG TAB PO SCH (07:35)
[2020-02-18] MEDS: ISOSORBIDE MONO EXTENDED REL 60 MG TABCR PO SCH (07:35)
[2020-02-18] MEDS: POTASSIUM CHLORIDE 20 MEQ TABCR PO SCH ×2 (07:35→20:08)
[2020-02-18] MEDS: SOTALOL HCL 80 MG TAB PO SCH ×2 (07:35→20:09)
[2020-02-18] MEDS: FOLIC ACID 1 MG TAB PO SCH (07:35)
[2020-02-18] MEDS: DIVALPROEX EXTENDED RELEASE 500 MG TAB PO SCH ×2 (07:35→20:10)
[2020-02-18] MEDS: APIXABAN 5 MG TABLET PO SCH ×2 (07:35→20:09)
[2020-02-18] MEDS: PANTOprazole 40 MG TAB PO SCH ×2 (07:35→20:08)
[2020-02-18] MEDS: CLOPIDOGREL BISULFATE 75 MG TAB PO SCH (07:35)
[2020-02-18] MEDS: THIAMINE HCL 100 MG TAB PO SCH (07:35)
[2020-02-18] MEDS ORDERED: VANCOMYCIN TROUGH ONE (09:30)
--- NOTE | 2020-02-18 11:06 | XRay Report ---
XR foot LT 2V, XR foot RT 2V CLINICAL HISTORY: Bilateral foot cellulitis. COMPARISON STUDY: None. FINDINGS: Dorsal soft tissue swelling within the feet, left greater than right. No bony destruction t o suggest osteomyelitis. No radiopaque foreign bodies. No fracture or dislocation. The Lisfranc joint are intact. Mild osteoarthritis within the bilateral feet. IMPRESSION: 1. Dorsal soft tissue swelling within the feet, left greater than right. 2. No radiographic evidence for osteomyelitis. ACT 112: Negative or not required by law. Electronically signed by: Abelardo Deutsch M.D. 02/18/2020 11:04 AM
--- NOTE | 2020-02-18 12:06 | Infectious Disease Consult ---
Date of Consultation February 18, 2020 Assessment & Plan (1) Bilateral leg edema: unclear if cellulitis vs chronic statis change, legs have significant edema. would suggest short course doxy 100mg po bid as reported improvement overnight. ok for d/c from ID standpoint. History of Present Illness Attending Physician: Brody Zhong pt admitted with leg edema cellulitis. afebrile since admission, was initially held off of abx, ctx started last night, somewhat improved erythema overnight per primary. tolerated well. denies pain in legs, refused diuretics, remains with edema. afebrile since admission, wbc 7 on 02/14. states he is awaiging d/c no micro to review, dopplers negative. Allergies Allergy/AdvReac Type Severity Reaction Status Date / Time amoxicillin Allergy Intermediate Symmetrical Verified 02/15/20 17:36 drug-related intertriginous flexural exanthema lactose AdvReac Intermediate GI SYMPTOMS Verified 02/15/20 17:36 benzalkonium chloride AdvReac Mild ITCHING/SWE Verified 02/15/20 17:36 LLING/RASH gluten AdvReac Unknown gluten Verified 02/15/20 17:36 intolerant per EGD Home Medications Home Medications Medication Instructions Recorded Confirmed Type thiamine HCl (vitamin B1) [Vitamin 100 mg PO QAM #30 tab 01/11/20 02/15/20 Rx B-1] Eliquis 5 mg PO BID #60 tab 02/11/20 02/15/20 Rx Trelegy Ellipta 1 inh INHALATION HS #30 ea 02/11/20 02/15/20 Rx albuterol sulfate 90 mcg INH Q6H PRN #30 ea 02/11/20 02/15/20 Rx clopidogrel [Plavix] 75 mg PO QAM #30 tab 02/11/20 02/15/20 Rx divalproex 500 mg PO BID #60 tab 02/11/20 02/15/20 Rx folic acid 1 mg PO QAM #30 tab 02/11/20 02/15/20 Rx isosorbide mononitrate 60 mg PO QAM #30 tab 02/11/20 02/15/20 Rx losartan 25 mg PO HS #30 tab 02/11/20 02/15/20 Rx metoprolol succinate 25 mg PO HS 30 Days #30 tab 02/11/20 02/15/20 Rx omeprazole 40 mg PO BID #30 cap 02/11/20 02/15/20 Rx sotalol 80 mg PO BID #60 tab 02/11/20 02/15/20 Rx trazodone 50 mg PO HS #30 tab 02/11/20 02/15/20 Rx furosemide 60 mg PO QAM #30 tab 02/12/20 02/15/20 Rx atorvastatin 80 mg PO HS 02/15/20 02/15/20 History cholecalciferol (vitamin D3) 2,000 unit PO QAM 02/15/20 02/15/20 History [Vitamin D3] Patient History Medical History Alcohol abuse Anemia Arthritis CAD (coronary artery disease), [place] coronary artery Celiac disease Chronic respiratory failure with hypoxia Chronic systolic CHF (congestive heart failure) Emphysema of lung GERD (gastroesophageal reflux disease) Gout Hyperlipidemia Hypertension ICD (implantable cardioverter-defibrillator) in place medtronic [address] Newberry Ischemic cardiomyopathy Ischemic colitis Migraine Myocardial Infarction most recent 2013, adjust med and icd inserted Non-ST elevation [place] (NSTEMI) (Inactive) PAD (peripheral artery disease) Pituitary adenoma removal of adenoma from pituitary 2015 Thrombocytopenia Unstable angina (Inactive) Ventricular tachycardia Surgical History H/O hand surgery Right hand tendon repair History of abdominal aortic aneurysm (AAA) repair 2006 History of cardiac defibrillator placement May 2014 History of pituitary surgery August 2016 History of total hip arthroplasty right and left Hx of [id number] bypass right and left leg Family History Mother , at age 46 Breast cancer Other Cancer Denies family history of Ovarian cancer Prostate cancer Myocardial infarction Colorectal cancer Social History Preferred Language: Egyptian Communication Ability: Effective Visual Impairment: No Limitations Hearing Ability: Normal Event Decorator And Designer Required: No Beliefs That Will Affect Care: None marital status: marital status details: no children Current Living Situation: Long Term current occupational status: retired Other Information That Helps Us Care for You: No Feels Safe at Home: Yes Safety Concerns: Feels Safe At This Time Smoking Status: Never smoker Age Started Using Tobacco: 19 ; Age Quit Using Tobacco: 61 ; packs per day: 1.5 ; Cigarettes Per Day: 20-40 ; Number of Years Since Quit: 13 ; Second Hand Exposure: No ; Hx Alcohol Use: No Hx Substance Use: No Childhood Exposure to Second-Hand Smoke: No Dental Care, Regularly: Yes Physical Activity Frequency: 3-4 Times per Week Seatbelt Use: always Sunscreen Use: Yes Review of Systems Review of Systems: All systems reviewed & are unremarkable except as noted in HPI & below Physical Exam Constitutional: WD/WN, vitals as above Eyes: PERRL, conjunctivae normal, anicteric sclerae ENMT: external ear and nose normal, oropharynx normal Neck: normal visual inspection Respiratory: normal respiratory effort, lungs clear to auscultation Cardiovascular: RRR, no murmur, no edema Extremities: + pedal edema Gastrointestinal (Abdomen): normal bowel sounds, soft, nontender, no hepatosplenomegaly Musculoskeletal: no cyanosis or clubbing, extremities motor strength 5/5 Skin: no rashes, warm and dry + erythema (min b/l feet, no warmth); no ulcers and no wound Psychiatric: A+Ox3, euthymic affect Results & Data ([facility]) Vital Signs (Past 12 Hours) Vital Signs Temp Pulse Resp BP BP Pulse Ox 02/18/20 10:51 36.4 C L 61 18 103/65 96 02/18/20 07:12 36.3 C L 66 18 103/61 95 02/18/20 05:22 36.5 C 51 L 18 113/65 98 PG Care Time/CCT Total # of Minutes Spent Total Time Spent with Patient: Total time spent is greater than 50% in coordination of care (as documented) at patient's floor/unit and/or counseling patient: Coding Level of Care Code 71439 Inpt Consult Level 4 Diagnoses Bilateral leg edema R60.0
[2020-02-18] MEDS: ATORVASTATIN 40 MG TAB PO SCH (20:08)
[2020-02-18] MEDS: LOSARTAN POTASSIUM 25 MG TAB PO SCH (20:09)
[2020-02-18] MEDS: METOPROLOL SUCC 25MG EXT REL TAB PO SCH (20:10)
[2020-02-18] MEDS: TRAZODONE HCL 50 MG TAB PO SCH (20:12)
--- NOTE | 2020-02-18 21:44 | Hospitalist Progress Note ---
Date of Service February 18, 2020 Assessment & Plan (1) Cellulitis of both lower extremities: Was placed on vancomycin IV and aztreonam IV. THIS WAS STOPPED ON 02/15, as no significant signs of cellulitis. After receiving one dose of ceftriaxone, foot appears less red. Patient will likely not require MRSA coverage as clinically improving. consulted wound care for wrapping. Will order a repeat dose of lasix in AM. Anticipate discharge tomorrow. . (2) Bilateral leg edema: Bilateral lower extremity edema/hypoalbuminemia- Patient received additional dose of lasix on 02/15 (3) Impaired decision making: Impaired decision making/paranoid delusions/Wernicke-Korsakoff syndrome- He spent considerable time negotiating use of diuretics and other treatments. At this point, he will be cooperative with most of the treatments we have offered. (4) Paranoid delusion: See above (5) Alcoholic Korsakoff syndrome: See above (6) Wernickes encephalopathy: See above (7) CAD (coronary artery disease), [place] coronary artery: CAD/PAD/hypertension/chronic systolic CHF, atrial fibrillation, ischemic cardiomyopathy- Continue clopidogrel, Eliquis, isosorbide mononitrate, losartan, metoprolol succinate, and sotalol. will continue with He has been refusing to take a number of medications as noted above. (8) Chronic systolic CHF (congestive heart failure): See above (9) PAD (peripheral artery disease): See above (10) Atrial fibrillation: See above (11) Ischemic cardiomyopathy: See above (12) Seizure: Continue divalproex 500 mg p.o. twice daily (13) Hyperlipidemia: Continue atorvastatin 80 mg at bedtime (14) Emphysema of lung: Hold Trelegy Ellipta due to nonformulary status. Duo nebs available use every 4 hours as needed Admission and Anticipated Discharge Date Admission Date: February 15, 2020 Subjective 75 yo male has no new complaints. But is focused on being discharged home and not to personal alf. Patient wants copy of the court order. Had extensive conversation with patient, and trying to reorient him to the reason why he is in the hospital. Review of Systems Review of Systems: The patient denies chest pain, palpitations, cough, sore throat, fevers, chills, sweats, nausea, vomiting, diarrhea , constipation, abdominal pain, pelvic pain, blood in urine or stool, dysuria, urinary frequency or urgency, lightheadedness, dizziness, headache, loss of consciousness, rash, abnormal bruising or bleeding, imbalance, focal or generalized weakness, numbness or tingling in arms, generalized arthralgias or myalgias, back or neck pain, or night sweats. The review of systems is otherwise negative other than for that already noted above, and at least 10 systems have been reviewed. Physical Exam Physical Exam: The patient is awake and alert, normocephalic and atraumatic, standing upright in the room, and in no acute distress. HEENT--PERRL, EOMI, mucous membranes and oropharynx normal Neck--supple. No JVD. No bruits. Thyroid normal, trachea midline, no adenopathy. Heart--normal S1 and S2. No murmurs, rubs or gallops. Lungs--few crackles at the bases bilaterally. No respiratory distress, no accessory muscle use. Abdomen--normal bowel sounds and soft. Nontender. Nondistended. Extremities--no cyanosis or clubbing. 3+ bilateral pretibial and pedal pitting edema. Both feet appear red, but not tender to palpation, however today it is less warm to touch. Dermatologic--moderately (decreased from day earlier) erythema right foot and tibia greater than left Neurologic--cranial nerves II through XII grossly intact. Rheumatologic--normal range of motion. Results & Data Results & Data ([facility]) Vital Signs (Past 12 Hours) Vital Signs Temp Pulse Pulse Resp BP Pulse Ox 02/18/20 20:51 36.5 C 65 18 113/74 95 02/18/20 15:33 36.3 C L 82 18 109/59 L 95 02/18/20 15:00 53 L 02/18/20 10:51 36.4 C L 61 18 103/65 96 PG Care Time/CCT Total # of Minutes Spent Total Time Spent with Patient: Total time spent is greater than 50% in coordination of care (as documented) at patient's floor/unit and/or counseling patient: Coding Level of Care Code 03676 Subseq Hosp Care Lvl 3 Diagnoses Cellulitis of both lower extremities L03.115; L03.116 Bilateral leg edema R60.0 Impaired decision making Z78.9 Paranoid delusion F22 Alcoholic Korsakoff syndrome F10.96 Wernickes encephalopathy E51.2 CAD (coronary artery disease), [place] coronary artery I25.118 Associated angina: with stable angina [place] vs. transplanted heart: [place] heart Chronic systolic CHF (congestive heart failure) I50.22 PAD (peripheral artery disease) I73.9 Atrial fibrillation I48.91 Atrial fibrillation type: unspecified Ischemic cardiomyopathy I25.5 Seizure R56.9 Hyperlipidemia E78.5 Hyperlipidemia type: unspecified Emphysema of lung J43.9 Time Spent (min) 38 (1) Atrial fibrillation Atrial fibrillation type: unspecified Qualified Code(s): I48.91 - Unspecified atrial fibrillation (2) Hyperlipidemia Hyperlipidemia type: unspecified Qualified Code(s): E78.5 - Hyperlipidemia, unspecified (3) CAD (coronary artery disease), [place] coronary artery Associated angina: with stable angina [place] vs. transplanted heart: [place] heart Qualified Code(s): I25.118 - Atherosclerotic heart disease of [place] coronary artery with other forms of angina pectoris
[2020-02-19 07:23] LABS: Est GFR (African American) 76.2; Est GFR (Non-African American) 65.8
[2020-02-19] MEDS: POTASSIUM CHLORIDE 20 MEQ TABCR PO SCH (08:18)
[2020-02-19] MEDS: APIXABAN 5 MG TABLET PO SCH ×2 (08:18→21:07)
[2020-02-19] MEDS: DIVALPROEX EXTENDED RELEASE 500 MG TAB PO SCH ×2 (08:18→21:07)
[2020-02-19] MEDS: SOTALOL HCL 80 MG TAB PO SCH ×2 (08:18→21:07)
[2020-02-19] MEDS: FOLIC ACID 1 MG TAB PO SCH (08:19)
[2020-02-19] MEDS: CLOPIDOGREL BISULFATE 75 MG TAB PO SCH (08:19)
[2020-02-19] MEDS: THIAMINE HCL 100 MG TAB PO SCH (08:19)
[2020-02-19] MEDS: PANTOprazole 40 MG TAB PO SCH ×2 (08:19→21:07)
[2020-02-19] MEDS: CHOLECALCIFEROL 1,000 UNITS 25 MCG TAB PO SCH (08:19)
[2020-02-19] MEDS: ISOSORBIDE MONO EXTENDED REL 60 MG TABCR PO SCH (08:19)
[2020-02-19] MEDS: INSULIN ASPART 100 UNITS/ML 3 ML PEN SC SCH ×4 (08:30→21:37)
[2020-02-19] MEDS ORDERED: FUROSEMIDE 60 MG in SYRINGE 0 ML IV ONE (09:30)
[2020-02-19 09:50] LABS: Basophils # (auto) 0.05 K/uL (0-0.2); Basophils % (auto) 0.7 %; Eosinophils # (auto) 0.22 K/uL (0-0.5); Eosinophils % (auto) 3.2 %; Hematocrit (blood only) 34.7 % (42-52); Hemoglobin 11.4 g/dL (14.0-18.0); Immature Granulocytes # (auto) 0.02 K/uL (0.00-0.02); Immature Granulocytes % (auto) 0.3 %; Lymphocytes # (auto) 1.37 K/uL (1.2-3.4); Lymphocytes % (auto) 20.2 %; Mean Corpuscular Hemoglobin 27.9 pg (25-34); Mean Corpuscular Hgb Conc 32.9 g/dL (32-36); Mean Corpuscular Volume 84.8 fL (80-100); Mean Platelet Volume 10.7 fL (7.4-10.4); Monocytes # (auto) 0.74 K/uL (0.11-0.59); Monocytes % (auto) 10.9 %; Neutrophils # (auto) 4.38 K/uL (1.4-6.5); Neutrophils % (auto) 64.7 %; Platelet Count 110 K/uL (130-400); RDW Coefficient of Variation 19.9 % (11.5-14.5); RDW Standard Deviation 62.2 fL (36.4-46.3); Red Blood Count 4.09 M/uL (4.7-6.1); White Blood Count 6.78 K/uL (4.8-10.8)
[2020-02-19 10:19] LABS: BUN Creatinine Ratio 25.2 (10-20); Calcium 8.8 mg/dl (8.5-10.1); Creatinine Clr Calc Pharmacy 60.3 ml/min; Est GFR (African American) 81.6; Est GFR (Non-African American) 70.4; Potassium 4.4 mmol/L (3.5-5.1)
[2020-02-19] MEDS ORDERED: POTASSIUM CHLORIDE 20 MEQ TABCR PO SCH (14:00)
[2020-02-19] MEDS: METOPROLOL SUCC 25MG EXT REL TAB PO SCH (21:07)
[2020-02-19] MEDS: LOSARTAN POTASSIUM 25 MG TAB PO SCH (21:07)
[2020-02-19] MEDS: ATORVASTATIN 40 MG TAB PO SCH (21:07)
[2020-02-19] MEDS: cefTRIAXone SODIUM 1,000 MG in DEXTROSE 5% 50 ML IV SCH (21:57)
--- NOTE | 2020-02-19 22:24 | Hospitalist Progress Note ---
Date of Service February 19, 2020 Assessment & Plan (1) Cellulitis of both lower extremities: Was placed on vancomycin IV and aztreonam IV. THIS WAS STOPPED ON 02/15, as no significant signs of cellulitis. After receiving one dose of ceftriaxone, foot appears less red. Patient will likely not require MRSA coverage as clinically improving. consulted wound care for wrapping. Patient to be discharged on doxycycline as non MRSA coverage is making the cellulitits better. Will have patient discharged tomorrow as no nurses available at personal senior care today. . (2) Bilateral leg edema: Bilateral lower extremity edema/hypoalbuminemia- Edema improved, will continue with lasix. (3) Impaired decision making: Impaired decision making/paranoid delusions/Wernicke-Korsakoff syndrome- He spent considerable time negotiating use of diuretics and other treatments. At this point, he will be cooperative with most of the treatments we have offered. (4) Paranoid delusion: See above (5) Alcoholic Korsakoff syndrome: See above (6) Wernickes encephalopathy: See above (7) CAD (coronary artery disease), [place] coronary artery: CAD/PAD/hypertension/chronic systolic CHF, atrial fibrillation, ischemic cardiomyopathy- Continue clopidogrel, Eliquis, isosorbide mononitrate, losartan, metoprolol succinate, and sotalol. will continue with He has been refusing to take a number of medications as noted above. (8) Chronic systolic CHF (congestive heart failure): See above (9) PAD (peripheral artery disease): See above (10) Atrial fibrillation: See above (11) Ischemic cardiomyopathy: See above (12) Seizure: Continue divalproex 500 mg p.o. twice daily (13) Hyperlipidemia: Continue atorvastatin 80 mg at bedtime (14) Emphysema of lung: Hold Trelegy Ellipta due to nonformulary status. Duo nebs available use every 4 hours as needed Admission and Anticipated Discharge Date Admission Date: February 15, 2020 Subjective Patient is a poor historian and is very fixated on going back home. He is worried that people are listening in on his phone calls. When brought back to the conversation of his feet, he feels that they are improving. Had extensive conversation. Review of Systems Review of Systems: The patient denies chest pain, palpitations, cough, sore throat, fevers, chills, sweats, nausea, vomiting, diarrhea , constipation, abdominal pain, pelvic pain, blood in urine or stool, dysuria, urinary frequency or urgency, lightheadedness, dizziness, headache, loss of consciousness, rash, abnormal bruising or bleeding, imbalance, focal or generalized weakness, numbness or tingling in arms, generalized arthralgias or myalgias, back or neck pain, or night sweats. The review of systems is otherwise negative other than for that already noted above, and at least 10 systems have been reviewed. Physical Exam Physical Exam: The patient is awake and alert, normocephalic and atraumatic, standing upright in the room, and in no acute distress. HEENT--PERRL, EOMI, mucous membranes and oropharynx normal Neck--supple. No JVD. No bruits. Thyroid normal, trachea midline, no adenopathy. Heart--normal S1 and S2. No murmurs, rubs or gallops. Lungs--few crackles at the bases bilaterally. No respiratory distress, no accessory muscle use. Abdomen--normal bowel sounds and soft. Nontender. Nondistended. Extremities--no cyanosis or clubbing. 3+ bilateral pretibial and pedal pitting edema. Both feet appear red, but not tender to palpation, however today it is less warm to touch. Dermatologic--Erythema has greatly improved right foot and tibia greater than left Neurologic--cranial nerves II through XII grossly intact. Rheumatologic--normal range of motion. Results & Data Results & Data ([facility]) Vital Signs (Past 12 Hours) Vital Signs Temp Pulse Resp BP Pulse Ox 02/19/20 14:02 36.5 C 62 16 114/74 97 PG Care Time/CCT Total # of Minutes Spent Total Time Spent with Patient: Total time spent is greater than 50% in coordination of care (as documented) at patient's floor/unit and/or counseling patient: Coding Level of Care Code 40210 Subseq Hosp Care Lvl 3 Diagnoses Cellulitis of both lower extremities L03.115; L03.116 Bilateral leg edema R60.0 Impaired decision making Z78.9 Paranoid delusion F22 Alcoholic Korsakoff syndrome F10.96 Wernickes encephalopathy E51.2 CAD (coronary artery disease), [place] coronary artery I25.118 Associated angina: with stable angina [place] vs. transplanted heart: [place] heart Chronic systolic CHF (congestive heart failure) I50.22 PAD (peripheral artery disease) I73.9 Atrial fibrillation I48.91 Atrial fibrillation type: unspecified Ischemic cardiomyopathy I25.5 Seizure R56.9 Hyperlipidemia E78.5 Hyperlipidemia type: unspecified Emphysema of lung J43.9 Time Spent (min) 40 (1) Atrial fibrillation Atrial fibrillation type: unspecified Qualified Code(s): I48.91 - Unspecified atrial fibrillation (2) Hyperlipidemia Hyperlipidemia type: unspecified Qualified Code(s): E78.5 - Hyperlipidemia, unspecified (3) CAD (coronary artery disease), [place] coronary artery Associated angina: with stable angina [place] vs. transplanted heart: [place] heart Qualified Code(s): I25.118 - Atherosclerotic heart disease of [place] coronary artery with other forms of angina pectoris
[2020-02-19] MEDS: TRAZODONE HCL 50 MG TAB PO SCH (22:40)
[2020-02-20] MEDS: INSULIN ASPART 100 UNITS/ML 3 ML PEN SC SCH (09:57)
[2020-02-20] MEDS: CLOPIDOGREL BISULFATE 75 MG TAB PO SCH (09:59)
[2020-02-20] MEDS: SOTALOL HCL 80 MG TAB PO SCH (09:59)
[2020-02-20] MEDS: ISOSORBIDE MONO EXTENDED REL 60 MG TABCR PO SCH (09:59)
[2020-02-20] MEDS: APIXABAN 5 MG TABLET PO SCH (09:59)
[2020-02-20] MEDS: FOLIC ACID 1 MG TAB PO SCH (09:59)
[2020-02-20] MEDS: DIVALPROEX EXTENDED RELEASE 500 MG TAB PO SCH (09:59)
[2020-02-20] MEDS: PANTOprazole 40 MG TAB PO SCH (09:59)
[2020-02-20] MEDS: THIAMINE HCL 100 MG TAB PO SCH (09:59)
[2020-02-20] MEDS: CHOLECALCIFEROL 1,000 UNITS 25 MCG TAB PO SCH (10:00)
--- NOTE | 2020-02-24 23:45 | Discharge Summary ---
Date of Service February 20, 2020 Admission HPI Per Admitting Provider The patient is a 75-year-old male with a past medical history including coronary artery disease, thrombocytopenia, celiac disease, PAD, chronic systolic CHF, gout, pituitary adenoma, seizure disorder, ICD presence, atrial fibrillation, ischemic cardiomyopathy, GERD, hyperlipidemia, hypertension, COPD, Wernicke- Korsakoff syndrome and dementia. He was most recently admitted to [facility] from 01/25-02/12/2020 for issues related to Warnicke Korsakoff' syndrome and dementia and resistance to treatment. He presents to the emergency department via EMS today, due to worsening lower extremity edema and erythema associated with his refusal to take medications. After appropriate work-up in the emergency department tonight, including blood work, ultrasound imaging, chest x- ray and EKG, emergency department physician attempted to prescribe IV Lasix for the patient, however, he refused. I did have discussion with him at length, and he is now agreeable to admission and selective treatment. Principal Diagnosis cellulitis of lower extremity Discharge Exam The patient is awake and alert, normocephalic and atraumatic, standing upright in the room, and in no acute distress. HEENT--PERRL, EOMI, mucous membranes and oropharynx normal Neck--supple. No JVD. No bruits. Thyroid normal, trachea midline, no adenopathy. Heart--normal S1 and S2. No murmurs, rubs or gallops. Lungs--few crackles at the bases bilaterally. No respiratory distress, no accessory muscle use. Abdomen--normal bowel sounds and soft. Nontender. Nondistended. Extremities--no cyanosis or clubbing. 3+ bilateral pretibial and pedal pitting edema. Less red. Dermatologic--Erythema has greatly improved right foot and tibia greater than left Neurologic--cranial nerves II through XII grossly intact. Rheumatologic--normal range of motion. Discharge Data Allergies Allergy/AdvReac Type Severity Reaction Status Date / Time amoxicillin Allergy Intermediate Symmetrical Verified 02/15/20 17:36 drug-related intertriginous flexural exanthema lactose AdvReac Intermediate GI SYMPTOMS Verified 02/15/20 17:36 benzalkonium chloride AdvReac Mild ITCHING/SWE Verified 02/15/20 17:36 LLING/RASH gluten AdvReac Unknown gluten Verified 03/22/20 17:36 intolerant per EGD Consultations 02/15/20 19:49 ED Decision to Admit Stat 02/15/20 21:47 Consult Case Management - Discharge Planning Routine 02/16/20 16:12 Consult Infectious Diseases Routine Ordered Studies 02/15/20 17:02 US venous doppler LE Stat Hospital Course (1) Cellulitis of both lower extremities: Was placed on vancomycin IV and aztreonam IV. THIS WAS STOPPED ON 02/15, as no significant signs of cellulitis. After receiving one dose of ceftriaxone, foot appears less red. Patient will likely not require MRSA coverage as clinically improving. consulted wound care for wrapping. Patient to be discharged on doxycycline as non MRSA coverage is making the cellulitits better. . (2) Bilateral leg edema: Bilateral lower extremity edema/hypoalbuminemia- Edema improved, will continue with lasix. (3) Impaired decision making: Impaired decision making/paranoid delusions/Wernicke-Korsakoff syndrome- He spent considerable time negotiating use of diuretics and other treatments. At this point, he will be cooperative with most of the treatments we have offered. (4) Paranoid delusion: See above (5) Alcoholic Korsakoff syndrome: See above (6) Wernickes encephalopathy: See above (7) CAD (coronary artery disease), [place] coronary artery: CAD/PAD/hypertension/chronic systolic CHF, atrial fibrillation, ischemic cardiomyopathy- Continue clopidogrel, Eliquis, isosorbide mononitrate, losartan, metoprolol succinate, and sotalol. will continue with He has been refusing to take a number of medications as noted above. (8) Chronic systolic CHF (congestive heart failure): See above (9) PAD (peripheral artery disease): See above (10) Atrial fibrillation: See above (11) Ischemic cardiomyopathy: See above (12) Seizure: Continue divalproex 500 mg p.o. twice daily (13) Hyperlipidemia: Continue atorvastatin 80 mg at bedtime (14) Emphysema of lung: Hold Trelegy Ellipta due to nonformulary status. Duo nebs available use every 4 hours as needed Total Time Total Time Spent Total Time Spent (In Minutes): 32 Total Time Includes: Examination of the Patient, Discharge Planning and Medication Reconciliation Discharge Plan Discharge Items Patient Disposition: Home - Home Health Services Reason For Visit: CHF EXACERBATION Discharge Diagnosis: cellulitis Activity: Resume your previous activity Non-emergency contact: Primary Care Provider Call non-emergency contact if: you have any medication questions Follow-up/Referrals: Quirino Hensley MD [Primary Care Provider] - (Please call your primary care doctor's office to see if you need to make a follow up appointment with them.) Diet: Gluten Free, Low Fat and Lactose Intolerant Addtl Attending Provider Instructions: Continue with home health nurses to wrap your legs. Followup with PCP in 2 weeks in regards to cellulitis Check BMP in 1 week to reassess potassium. Coronavirus disease 2019 (COVID-19) is a virus that causes a respiratory illness. It is caused by a coronavirus called 2019 novel coronavirus (2019- nCoV). There are many types of coronavirus. Coronaviruses are a very common cause of bronchitis. They may sometimes cause lung infection(pneumonia). Symptoms can range from mild to severe respiratory illness. These viruses are also foundin some animals. COVID-19 was first found in people in [facility], in late 2018. In 2020, several cases of COVID-19 have been confirmed in the [place] Public health officials are working to find the source. How the virus spreads is not yet fully known. It may be spread through droplets of fluid that a person coughs or sneezes into the air. It may be spread if you touch a surface with virus on it, such as a handle or object, and then touch your mouth. What are the symptoms of COVID-19? Some people have no symptoms or mild symptoms. Symptoms may appear 2 to 14 days after contact with the virus. Symptoms can include: Fever Coughing Trouble breathing What are possible complications from COVID-19? In many cases, this virus can cause infection (pneumonia) in both lungs. In some cases, this can cause . How is COVID-19 diagnosed? Your healthcare provider will ask about your symptoms. He or she will also ask about your recent travel and contact with sick people. Testing for the virus is only done through the CDC. If yourhealthcare provider thinks you may have COVID- 19, he or she will work with your local health department and the CDC on testing. Follow all instructions from your healthcare provider. COVID-19 is diagnosed by: Nasal and throat swab. A cotton-tipped swab is wiped inside your nose or throat. This is done to check for viruses in your nasal mucus. Sputum culture. A small sample of mucus coughed from your lungs (sputum) is collected if you have a cough. It is checked for the virus. How is COVID-19 treated? There is currently no medicine to treat the virus. Treatment is done to help your body while it fights the virus. This is known as supportive care. Supportive care may include: Pain medicine. These include acetaminophen and ibuprofen. They are used to help ease pain and reduce fever. Bed rest. This helps your body fight the illness. For severe illness, you may need to stay in the hospital. Care during severe illness may include: IV (intravenous) fluids.These are given through a vein to help keep your body hydrated. Oxygen. Supplemental oxygen or ventilation with a breathing machine (ventilator) may be given. This is done to keep enough oxygen in your body. Are you at risk for COVID-19? If youve been to a place where people have been sick with this virus, you are at risk for infection. You are at risk if you: Recently traveled to an affected area Had contact with a sick person who recently traveled to this area Had contact with a person who was diagnosed with COVID-19 How can COVID-19 be prevented? There is no vaccine yet. The best prevention is to not have contact with the virus. The CDC advises that people should not travel to areas where there are COVID-19 outbreaks right now for any reason that is not urgent. To help prevent spreading the infection, wash your hands often, or use an alcohol-basedhand land law examiner. If you are in an area with COVID-19: Wash your hands often. Or use an alcohol-based hand land law examiner often. Only touch your eyes, nose, or mouth with clean hands. Dont have contact with people who are sick. Follow local instructions about being in public. For example, you may be told to not use public transport for a period of time. Stay away from markets that have live or animals. Wash your hands after touching any animals. Don't touch animals that may be sick. Dont share eating or drinking tools with sick people. Dont kiss someone who is sick. Clean surfaces often with disinfectant. If you were in an area with COVID-19 in the last 14 days: Call your healthcare provider. He or she can talk with local health staff to see what action may be needed. Follow all instructions from your provider. Take your temperature every morning and evening for at least 14 days. This is to check for fever. Keep a record of the readings. Keep watch for symptoms of the virus. Tell your provider right away if you have symptoms. If you were in an area with COVID-19 and have a fever or other symptoms: Dont panic. Keep in mind that other illnesses can cause similar symptoms. Stay away from work, school, and public places. Limit physical contact with family members. Don't kiss anyone or share eating or drinking utensils. Clean surfaces you touch with disinfectant. This is to help prevent the virus from spreading. Call your healthcare provider. Explain that you have been exposed to COVID-19 and have symptoms. Do this before going to any hospital. Wait for instructions. Keep in mind that healthcare staff may wear protective equipment such as masks, gowns, gloves, and eye protection. You may be put in a separate room. This is to prevent the possible virus from spreading. Tell the healthcare staff about recent travel. This includes local travel on public transport. Staff may need to find other people you have been in contact with. Follow all instructions the healthcare staff give you. If you have been diagnosed with COVID-19 Follow all instructions from your healthcare provider. Dont leave your home, except to get medical care. Call your healthcare providers office before going. They can prepare and give you instructions. This will help prevent the virus from spreading. Dont go to work, school, or public areas. Dont use public transport or taxis. Stay away from other people in your home. Have them wear face masks around you. Dont share household items or food. Wear a face mask if you can. This includes at home or in a medical facility. Cover your face with a tissue when you cough or sneeze. Throw the tissue away. Wash your hands. Wash your hands often. Caregivers should: Follow all instructions from healthcare staff. Wear a face mask and protective clothing as advised. Wash hands often. Keep track of the sick persons symptoms. Clean surfaces, fabrics, and laundry thoroughly. Keep other people away from the sick person. When to call your healthcare provider Call your healthcare provider: If youve recently traveled and have symptoms If you have been diagnosed with COVID-19 and your symptoms are worse To learn more To find out more about COVID-19, visit the CDC website at www.cdc.gov/coronavirus/2019-ncov/index.html. [employer]. [address] [place] [address], [place] [address]. All rights reserved. This information is not intended as a substitute for professional medical care. Always follow your healthcare professional's instructions. This information has been adapted from [employer] You have been hospitalized for an acute medical problem. During your stay at [facility], we have made an effort to correct the problem that brought you to the hospital while keeping you as comfortable as possible. Medications were used to bring your condition under control and your discharge instructions will include directions for any medications you should take after leaving the hospital. Please make sure you see your Primary Care Provider as part of your follow up plan. Pending Studies at Discharge: No Stand-Alone Forms: [facility], Smoking Cessation Medications and DC Order Prescriptions: New doxycycline hyclate 100 mg tablet,delayed release (DR/EC) 100 mg PO BID 9 Days Qty: 18 RF: 0 Continued thiamine HCl (vitamin B1) [Vitamin B-1] 100 mg Tablet 100 mg PO QAM Qty: 30 RF: 0 atorvastatin 80 mg tablet 80 mg PO HS RF: 0 cholecalciferol (vitamin D3) [Vitamin D3] 50 mcg (2,000 unit) capsule 2,000 unit PO QAM RF: 0 divalproex 500 mg Tablet Extended Release 24 Hr 500 mg PO BID Qty: 60 RF: 0 trazodone 50 mg tablet 50 mg PO HS Qty: 30 RF: 0 sotalol 80 mg tablet 80 mg PO BID Qty: 60 RF: 0 clopidogrel [Plavix] 75 mg Tablet 75 mg PO QAM Qty: 30 RF: 0 isosorbide mononitrate 60 mg tablet extended release 24 hr 60 mg PO QAM Qty: 30 RF: 0 losartan 25 mg tablet 25 mg PO HS Qty: 30 RF: 0 omeprazole 20 mg Capsule,Delayed Release(Dr/Ec) 40 mg PO BID Qty: 30 RF: 0 folic acid 1 mg Tablet 1 mg PO QAM Qty: 30 RF: 0 Eliquis 5 mg tablet 5 mg PO BID Qty: 60 RF: 0 albuterol sulfate 90 mcg/actuation aerosol powdr breath activated 90 mcg INH Q6H PRN (Reason: Shortness Of Breath Or Wheezing) Qty: 30 RF: 0 Trelegy Ellipta 100-62.5-25 mcg blister with device 1 inh inhalation HS Qty: 30 RF: 0 furosemide 20 mg Tablet 60 mg PO QAM Qty: 30 RF: 0 Discharge Orders: Discharge Order (Routine); Ordered 02/20/20 Ordered By: Brody Zhong Admission Data Admit Date/Time: 02/15/20 20:14 Attending Provider: Brody Zhong Admit Provider: Evan Kenney Primary Care Provider: Quirino Hensley Other Providers: Ashely Decker Other Interventions: Discharge Summary Assessment (RN) Last Done: 02/19/20 14:02 DC Date/Time DO NOT enter until pt leaves facility: 02/20/20 11:17 Coding Level of Care Code D/C Day Management >30 mins Diagnoses Cellulitis of both lower extremities L03.115; L03.116 Bilateral leg edema R60.0 Impaired decision making Z78.9 Paranoid delusion F22 Alcoholic Korsakoff syndrome F10.96 Wernickes encephalopathy E51.2 CAD (coronary artery disease), [place] coronary artery I25.118 [place] vs. transplanted heart: [place] heart Associated angina: with stable angina Chronic systolic CHF (congestive heart failure) I50.22 PAD (peripheral artery disease) I73.9 Atrial fibrillation I48.91 Atrial fibrillation type: unspecified Ischemic cardiomyopathy I25.5 Seizure R56.9 Hyperlipidemia E78.5 Hyperlipidemia type: unspecified Emphysema of lung J43.9 Time Spent (min) 32
== END 2020-02-20 11:17 | disposition home health service (06) | DRG 603 ==
LOC: ED 16:42 → 2S 20:14 → SUATTDRO 20:14 → 2S 20:56 → 2W 02-18 17:08

== ENCOUNTER 2020-04-05 17:44 | Inpatient (IN) ==
--- NOTE | 2020-04-05 18:13 | Emergency Department Note ---
Impression & Plan ST elevation myocardial infarction (STEMI), Suspected COVID-19 virus infection, Hypoxia, Fever, Elevated troponin I level, Ventricular tachycardia ED Provider Note NAME: BERYL JEFFERSON AGE: 75 SEX: M : 1945 ARRIVES VIA: Ambulance INFORMANT: Patient, the prehospital personnel ED PROVIDER(S): Quirino Nagel DO CHIEF COMPLAINT: Shortness of breath and chest pain HPI: The patient is a 75-year-old male who presented to the emergency department for an evaluation of shortness of breath. I am familiar with the patient I met him many times before. The patient has a history of ischemic cardiomyopathy but also recently was placed in assisted living because of a decrease in his cognitive status over the last year. The patient presents back to the emergency department today because of difficulty breathing. Unfortunately the patient currently resides at a personal [facility] that is had many cases of COVID 19. The patient states that he has been having generalized weakness over the weekend. He is also noticed a slight cough. He started having sharp pain in his chest recently and does have a history of a defibrillator. He states he had approximately 5-7 episodes of his defibrillator firing today. They have all o ccurred at rest. He also complains of generalized weakness and fatigue. He does not have a fever as far as he knows. The patient denies having any nausea or vomiting. He denies having any abdominal pain. He does complain of lower extremity swelling but states that this is not new for him. ROS: See above HPI for pertinent positives & negatives. A total of 10 systems reviewed and were otherwise negative. PAST MEDICAL HISTORY: See Below PAST SURGICAL HISTORY: See Below FAMILY HISTORY: See Below SOCIAL HISTORY: See Below HOME MEDICATIONS: See Below ALLERGIES: See Below VITALS: See Below PHYSICAL EXAMINATION: GENERAL: Patient is awake alert in no acute distress patient is resting comfortably and showing no signs of anxiety EYES: The conjunctivae are clear. The pupils are round and reactive. EARS, NOSE, MOUTH AND THROAT: The nose is without any evidence of any deformity. Lips appear mildly cyanotic. NECK: The neck is nontender and supple. RESPIRATORY: Diminished breath sounds noted in the left lung field. There are rales in the right lung field. There is no tachypnea or conversational dyspnea CARDIOVASCULAR: Regular rate and rhythm noted there no murmurs rubs or gallops normal S1 normal S2. GASTROINTESTINAL: The abdomen is soft. Abdomen is nontender. MUSCULOSKELETAL/EXTREMITIES: There is no evidence of gross deformity full range of motion is noted in the hips and shoulders. SKIN: There is no obvious evidence of any rash. Pedal edema was noted bilaterally. NEUROLOGIC: Patient is awake and oriented to person place and situation. The patient did recognize me. Strength was symmetric bilaterally. MEDICAL DECISION MAKING: The patient is a 75-year-old male who presented to the emergency department for an evaluation of difficulty breathing. The patient was also experiencing chest pain and noticed that his defibrillator was firing multiple times through the day. The patient complained mostly of fatigue. He denied having any specific chest pain other than chest pain he was experiencing because of his defibrillator firing. Upon arrival the patient was put in respiratory isolation because his personal chcf has had a significant number of COVID-19 infections. The patient's initial EKG appeared to be consistent with an acute ST segment elevation MD in the inferior leads. The patient continues to be pain-free. He was started on a heparin drip. He was placed on supplemental oxy gen but had an increasing oxygen requirement while he was in the emergency department. I discussed the patient's laboratory and radiographic studies with him. I also discussed his case with the on-call [facility] hospitalist as well as the on-call instrumentation designer. At this time the patient continues to remain pain-free. Multiple EKG showed no specific change from the presenting tracing. The patient's COVID test was positive. His chest x-ray could be consistent with either pulmonary edema or COVID-19 infection. The patient is to be placed in the ICU for further management. Triage Nursing notes reviewed. Prior medical records reviewed Vital Signs: reviewed and remarkable for fever, hypotension and tachypnea. Differential diagnosis: Reactive airway disease, pneumonia, pneumothorax, COPD, CHF, infections, cardiac ischemia, pulmonary embolism, musculoskeletal, gastrointestinal, as well as other pathologies. ER treatment provided: See below Diagnostics interpreted by me: ECG: EKG was obtained in the emergency department. My interpretation is atrial fibrillation at 89 bpm. There were inferior ST segment elevations noted. There were also high and low lateral ST depressions noted. This was compared to a tracing from February 22, 2020. Some of these ST segment changes were present on the earlier tracing but do appear somewhat increased compared to today's tracing. A second EKG was done in the emergency department. My interpretation is atrial fibrillation at 91 bpm. There were no PVCs. Persistence of lateral ST depressions were also appreciated. Persistence of inferior ST elevations were also noted. There was no significant change compared to the earlier tracing. Cardiac Monitoring: An order was placed for continuous cardiac monitoring. The monitor shows a rate of 90 with atrial fibrillation rhythm. Laboratory studies: As stated above and show below. Imaging studies: See below Consultation(s): 1944: I discussed this case with Dr. Adhikari. He is agreed to evaluate the patient in the emergency department for further management disposition. 2023: I discussed this case with Dr. Barrow. He will follow along with the patient in the pending COVID test. 2099: I discussed this case with Dr. Barrow once the COVID-19 test returned positive. We will continue to monitor the patient's symptoms to determine further course of action. ED COURSE: Procedures: none PDMP:reviewed and no issues Critical Care: I have personally spent greater than 60 minutes of critical care time in the direct management of this patient. This includes bedside care, interpretation of diagnostic studies, and testing, discussion with consultants, patient, and family members, and other required patient management activities. This 60 minutes is in excess of all separately billable procedures. Past Med/Surg History Medical History (Updated 04/06/20 @ 06:01 by Evan Kenney MD) Alcohol abuse Anemia Arthritis CAD (coronary artery disease), [place] coronary artery Celiac disease Chronic respiratory failure with hypoxia Chronic systolic CHF (congestive heart failure) Emphysema of lung GERD (gastroesophageal reflux disease) Gout Hyperlipidemia Hypertension ICD (implantable cardioverter-defibrillator) in place medtronic [address] Newberry Ischemic cardiomyopathy Ischemic colitis Migraine Myocardial Infarction most recent 2013, adjust med and icd inserted Non-ST elevation MD (NSTEMI) (Inactive) PAD (peripheral artery disease) Personal history of sudden cardiac successfully resuscitated (Inactive) Pituitary adenoma removal of adenoma from pituitary 2015 Seizure disorder Thrombocytopenia Unstable angina (Inactive) Ventricular tachycardia Surgical History H/O hand surgery Right hand tendon repair History of abdominal aortic aneurysm (AAA) repair 2006 History of cardiac defibrillator placement May 2014 History of pituitary surgery August 2016 History of total hip arthroplasty right and left Hx of [id number] bypass right and left leg S/P hip replacement (Inactive) Family History Mother , at age 46 Breast cancer Other Cancer Denies family history of Ovarian cancer Prostate cancer Myocardial infarction Colorectal cancer Social History Preferred Language: Greek Communication Ability: Effective Visual Impairment: No Limitations Hearing Ability: Normal Pretzel Packer Required: No Beliefs That Will Affect Care: None marital status: marital status details: no children Current Living Situation: Other Current Living Situation Comment: Assisted Living @ [place] current occupational status: retired Feels Safe at Home: Yes Smoking Status: Never smoker Age Started Using Tobacco: 19 ; Age Quit Using Tobacco: 61 ; packs per day: 1.5 ; Cigarettes Per Day: 20-40 ; Number of Years Since Quit: 13 ; Second Hand Exposure: No ; Hx Alcohol Use: No Hx Substance Use: No Childhood Exposure to Second-Hand Smoke: No Dental Care, Regularly: Yes Physical Activity Frequency: 3-4 Times per Week Seatbelt Use: always Sunscreen Use: Yes Allergies Allergies Allergy/AdvReac Type Severity Reaction Status Date / Time amoxicillin Allergy Intermediate Symmetrical Verified 04/05/20 21:35 drug-related intertriginous flexural exanthema lactose AdvReac Intermediate GI SYMPTOMS Verified 04/05/20 21:35 benzalkonium chloride AdvReac Mild ITCHING/SWE Verified 04/05/20 21:35 LLING/RASH gluten AdvReac Unknown gluten Verified 04/05/20 21:35 intolerant per EGD Home Meds Home Medications Medication Instructions Recorded Confirmed atorvastatin 80 mg PO HS 02/15/20 04/05/20 acetaminophen 500 mg PO Q4H PRN MDD 3G 04/05/20 04/05/20 alprazolam 0.25 mg PO QAM 04/05/20 04/05/20 alprazolam 0.5 mg PO .DAILY@8PM 04/05/20 04/05/20 divalproex 250 mg PO BID 04/05/20 04/05/20 divalproex 500 mg PO BID 04/05/20 04/05/20 metoprolol succinate 25 mg PO HS 04/05/20 04/05/20 olanzapine 2.5 mg PO HS 04/05/20 04/05/20 trazodone 25 mg PO Q6H PRN 04/05/20 04/05/20 Previous Rx's Medication Instructions Recorded thiamine HCl (vitamin B1) [Vitamin 100 mg PO QAM #30 tab 01/11/20 B-1] Eliquis 5 mg PO BID #60 tab 02/11/20 Trelegy Ellipta 1 inh INHALATION HS #30 ea 02/11/20 albuterol sulfate 90 mcg INH Q6H PRN #30 ea 02/11/20 clopidogrel [Plavix] 75 mg PO QAM #30 tab 02/11/20 folic acid 1 mg PO QAM #30 tab 02/11/20 isosorbide mononitrate 60 mg PO QAM #30 tab 02/11/20 losartan 25 mg PO HS #30 tab 02/11/20 omeprazole 40 mg PO BID #30 cap 02/11/20 sotalol 80 mg PO BID #60 tab 02/11/20 trazodone 50 mg PO HS #30 tab 02/11/20 furosemide 60 mg PO QAM #30 tab 02/12/20 Results & Data (ED) Vital Signs Vital Signs - 24 hr 04/05/20 18:47 04/05/20 19:01 04/05/20 19:03 Temperature Pulse Rate 90 92 H 89 Pulse Rate from SpO2 Sensor 87 90 92 H Respiratory Rate 27 H 28 H 28 H Blood Pressure 138/115 H 70/37 L 78/56 L Blood Pressure Mean 122 39 64 Pulse Oximetry 93 94 94 Oxygen Delivery Method Oxygen Flow Rate 04/05/20 19:06 04/05/20 19:16 04/05/20 19:30 Temperature Pulse Rate 90 85 90 Pulse Rate from SpO2 Sensor 88 85 90 Respiratory Rate 22 26 H 24 Blood Pressure 85/56 L 74/51 L 97/57 L Blood Pressure Mean 71 54 70 Pulse Oximetry 93 90 91 Oxygen Delivery Method Oxygen Flow Rate 04/05/20 19:45 04/05/20 19:50 04/05/20 20:00 Temperature Pulse Rate 94 H 95 H 98 H Pulse Rate from SpO2 Sensor 92 H 91 H 94 H Respiratory Rate 25 H 26 H 18 Blood Pressure 91/69 L Blood Pressure Mean 78 Pulse Oximetry 94 92 67 L Oxygen Delivery Method Nasal Cannula Oxygen Flow Rate 2 04/05/20 20:10 04/05/20 20:11 04/05/20 20:15 Temperature Pulse Rate 94 H 100 H 95 H Pulse Rate from SpO2 Sensor 98 H 94 H 96 H Respiratory Rate 23 24 23 Blood Pressure 90/65 L 96/68 L Blood Pressure Mean 72 72 Pulse Oximetry 89 L 87 L 93 Oxygen Delivery Method Nasal Cannula Nasal Cannula Oxygen Flow Rate 3 4 04/05/20 20:30 04/05/20 20:45 04/05/20 21:00 Temperature Pulse Rate 90 88 91 H Pulse Rate from SpO2 Sensor 90 87 90 Respiratory Rate 26 H 27 H 25 H Blood Pressure 91/65 L 90/64 L 96/68 L Blood Pressure Mean 74 74 73 Pulse Oximetry 93 92 93 Oxygen Delivery Method Nasal Cannula Nasal Cannula Oxygen Flow Rate 4 4 04/05/20 21:15 04/05/20 21:30 04/05/20 21:45 Temperature Pulse Rate 92 H 88 88 Pulse Rate from SpO2 Sensor 93 H 82 89 Respiratory Rate 27 H 27 H 30 H Blood Pressure 91/65 L 84/60 L 81/65 L Blood Pressure Mean 70 64 68 Pulse Oximetry 91 91 92 Oxygen Delivery Method Oxygen Flow Rate 04/05/20 22:00 04/05/20 22:16 04/05/20 22:30 Temperature 37.4 C Pulse Rate 88 97 H 94 H Pulse Rate from SpO2 Sensor 88 89 91 H Respiratory Rate 19 28 H 27 H Blood Pressure 87/66 L 93/71 L 88/64 L Blood Pressure Mean 74 73 66 Pulse Oximetry 92 93 92 Oxygen Delivery Method Oxygen Flow Rate 04/05/20 22:45 04/05/20 23:00 04/05/20 23:15 Temperature Pulse Rate 89 89 88 Pulse Rate from SpO2 Sensor 89 88 Respiratory Rate 27 H 22 24 Blood Pressure 103/68 93/63 L 85/60 L Blood Pressure Mean 83 65 69 Pulse Oximetry 92 92 90 Oxygen Delivery Method Nasal Cannula Nasal Cannula Nasal Cannula Oxygen Flow Rate 4 4 4 04/05/20 23:30 04/05/20 23:45 04/06/20 00:07 Temperature Pulse Rate 92 H 90 91 H Pulse Rate from SpO2 Sensor 87 87 86 Respiratory Rate 26 H 28 H 23 Blood Pressure 83/66 L 80/62 L 93/62 L Blood Pressure Mean 71 64 76 Pulse Oximetry 90 96 93 Oxygen Delivery Method Nasal Cannula Nasal Cannula Oxygen Flow Rate 4 4 04/06/20 00:30 04/06/20 00:45 Temperature Pulse Rate 89 84 Pulse Rate from SpO2 Sensor 95 H 80 Respiratory Rate 25 H 24 Blood Pressure 97/72 L 103/68 Blood Pressure Mean 80 75 Pulse Oximetry 95 89 L Oxygen Delivery Method Oxygen Flow Rate Home Medications Current Medication List: was personally reviewed by me Laboratory Data Attestation: I reviewed the patient's lab results. Result diagrams: 04/06/20 03:00 04/06/20 03:00 Lab Results 04/05/20 04/05/20 04/05/20 Range/Units 19:14 19:29 19:29 WBC 5.12 (4.8-10.8) K/uL RBC 3.83 L (4.7-6.1) M/uL Hgb 10.8 L (14.0-18.0) g/dL Hct 34.3 L (42-52) % MCV 89.6 (80-100) fL MCH 28.2 (25-34) pg MCHC 31.5 L (32-36) g/dL RDW Std Deviation 63.1 H (36.4-46.3) fL RDW Coeff of Dena 19.2 H (11.5-14.5) % Plt Count 117 L (130-400) K/uL MPV 10.5 H (7.4-10.4) fL Immature Gran % (Auto) 0.2 % Neut % (Auto) 76.4 % Lymph % (Auto) 11.1 % [place] % (Auto) 12.1 % Eos % (Auto) 0.0 % Baso % (Auto) 0.2 % Immature Gran # (Auto) 0.01 (0.00-0.02) K/uL Neut # (Auto) 3.91 (1.4-6.5) K/uL Lymph # (Auto) 0.57 L (1.2-3.4) K/uL [place] # (Auto) 0.62 H (0.11-0.59) K/uL Eos # (Auto) 0.00 (0-0.5) K/uL Baso # (Auto) 0.01 (0-0.2) K/uL PT 16.6 H (9.0-12.0) Seconds INR 1.6 H (0.9-1.1) APTT 34.3 H (21.0-31.0) Seconds PTT Ratio 1.2 Sodium (136-145) mmol/L Potassium (3.5-5.1) mmol/L Chloride (98-107) mmol/L Carbon Dioxide (21-32) mmol/L Anion Gap (3-11) BUN (7-18) mg/dl Creatinine (0.6-1.4) mg/dl Est Cr Clr Drug Dosing ml/min Est GFR ( Amer) Est GFR (Non-Af Amer) BUN/Creatinine Ratio (10-20) Glucose (70-99) mg/dl Lactate 1.8 (0.4-2.0) mmol/L Calcium (8.5-10.1) mg/dl Magnesium (1.8-2.4) mg/dl Total Bilirubin (0.2-1) mg/dl AST (15-37) U/L ALT (12-78) U/L Alkaline Phosphatase (45-117) U/L Troponin I (0-0.045) ng/ml Total Protein (6.4-8.2) gm/dl Albumin (3.4-5.0) gm/dl Globulin (2.5-4.0) gm/dl Albumin/Globulin Ratio (0.9-2) Procalcitonin (0-0.5) ng/ml Urine Color Urine Appearance (Clear) Urine pH (4.5-7.5) Ur Specific [place] (1.000-1.030) Urine Protein (Negative) Urine Glucose (UA) (Negative) Urine Ketones (Negative) Urine Blood (Negative) Urine Nitrite (Negative) Urine Bilirubin (Negative) Urine Urobilinogen (Negative) Ur Leukocyte Esterase (Negative) Urine WBC (Auto) (0-5) /hpf Urine RBC (Auto) (0-4) /hpf U Hyaline Cast (Auto) (0-5) /lpf U Epithel Cells (Auto) (0-5) /lpf Urine Bacteria (Auto) (Negative) Valproic Acid (50-100) mcg/ml COVID-19 PCR (Negative) Influenza Type A (PCR) (Neg) Influenza Type B (PCR) (Neg) SARS-CoV-2 RNA (RT-PCR) 04/05/20 04/05/20 04/05/20 Range/Units 19:29 19:29 19:29 WBC (4.8-10.8) K/uL RBC (4.7-6.1) M/uL Hgb (14.0-18.0) g/dL Hct (42-52) % MCV (80-100) fL MCH (25-34) pg MCHC (32-36) g/dL RDW Std Deviation (36.4-46.3) fL RDW Coeff of Dena (11.5-14.5) % Plt Count (130-400) K/uL MPV (7.4-10.4) fL Immature Gran % (Auto) % Neut % (Auto) % Lymph % (Auto) % [place] % (Auto) % Eos % (Auto) % Baso % (Auto) % Immature Gran # (Auto) (0.00-0.02) K/uL Neut # (Auto) (1.4-6.5) K/uL Lymph # (Auto) (1.2-3.4) K/uL [place] # (Auto) (0.11-0.59) K/uL Eos # (Auto) (0-0.5) K/uL Baso # (Auto) (0-0.2) K/uL PT (9.0-12.0) Seconds INR (0.9-1.1) APTT (21.0-31.0) Seconds PTT Ratio Sodium 139 (136-145) mmol/L Potassium 4.1 (3.5-5.1) mmol/L Chloride 107 (98-107) mmol/L Carbon Dioxide 24 (21-32) mmol/L Anion Gap 8.0 (3-11) BUN 31 H (7-18) mg/dl Creatinine 1.44 H (0.6-1.4) mg/dl Est Cr Clr Drug Dosing 47.2 ml/min Est GFR ( Amer) 55.1 Est GFR (Non-Af Amer) 47.5 BUN/Creatinine Ratio 21.4 H (10-20) Glucose 110 H (70-99) mg/dl Lactate (0.4-2.0) mmol/L Calcium 7.7 L (8.5-10.1) mg/dl Magnesium 2.1 (1.8-2.4) mg/dl Total Bilirubin 0.7 (0.2-1) mg/dl AST 221 H (15-37) U/L ALT 37 (12-78) U/L Alkaline Phosphatase 54 (45-117) U/L Troponin I 39.000 H* (0-0.045) ng/ml Total Protein 6.5 (6.4-8.2) gm/dl Albumin 2.9 L (3.4-5.0) gm/dl Globulin 3.6 (2.5-4.0) gm/dl Albumin/Globulin Ratio 0.8 L (0.9-2) Procalcitonin 0.13 (0-0.5) ng/ml Urine Color Urine Appearance (Clear) Urine pH (4.5-7.5) Ur Specific [place] (1.000-1.030) Urine Protein (Negative) Urine Glucose (UA) (Negative) Urine Ketones (Negative) Urine Blood (Negative) Urine Nitrite (Negative) Urine Bilirubin (Negative) Urine Urobilinogen (Negative) Ur Leukocyte Esterase (Negative) Urine WBC (Auto) (0-5) /hpf Urine RBC (Auto) (0-4) /hpf U Hyaline Cast (Auto) (0-5) /lpf U Epithel Cells (Auto) (0-5) /lpf Urine Bacteria (Auto) (Negative) Valproic Acid < 3 L (50-100) mcg/ml COVID-19 PCR (Negative) Influenza Type A (PCR) (Neg) Influenza Type B (PCR) (Neg) SARS-CoV-2 RNA (RT-PCR) 04/05/20 04/05/20 04/05/20 Range/Units 19:29 19:29 19:29 WBC (4.8-10.8) K/uL RBC (4.7-6.1) M/uL Hgb (14.0-18.0) g/dL Hct (42-52) % MCV (80-100) fL MCH (25-34) pg MCHC (32-36) g/dL RDW Std Deviation (36.4-46.3) fL RDW Coeff of Dena (11.5-14.5) % Plt Count (130-400) K/uL MPV (7.4-10.4) fL Immature Gran % (Auto) % Neut % (Auto) % Lymph % (Auto) % [place] % (Auto) % Eos % (Auto) % Baso % (Auto) % Immature Gran # (Auto) (0.00-0.02) K/uL Neut # (Auto) (1.4-6.5) K/uL Lymph # (Auto) (1.2-3.4) K/uL [place] # (Auto) (0.11-0.59) K/uL Eos # (Auto) (0-0.5) K/uL Baso # (Auto) (0-0.2) K/uL PT (9.0-12.0) Seconds INR (0.9-1.1) APTT (21.0-31.0) Seconds PTT Ratio Sodium (136-145) mmol/L Potassium (3.5-5.1) mmol/L Chloride (98-107) mmol/L Carbon Dioxide (21-32) mmol/L Anion Gap (3-11) BUN (7-18) mg/dl Creatinine (0.6-1.4) mg/dl Est Cr Clr Drug Dosing ml/min Est GFR ( Amer) Est GFR (Non-Af Amer) BUN/Creatinine Ratio (10-20) Glucose (70-99) mg/dl Lactate (0.4-2.0) mmol/L Calcium (8.5-10.1) mg/dl Magnesium (1.8-2.4) mg/dl Total Bilirubin (0.2-1) mg/dl AST (15-37) U/L ALT (12-78) U/L Alkaline Phosphatase (45-117) U/L Troponin I (0-0.045) ng/ml Total Protein (6.4-8.2) gm/dl Albumin (3.4-5.0) gm/dl Globulin (2.5-4.0) gm/dl Albumin/Globulin Ratio (0.9-2) Procalcitonin (0-0.5) ng/ml Urine Color Urine Appearance (Clear) Urine pH (4.5-7.5) Ur Specific [place] (1.000-1.030) Urine Protein (Negative) Urine Glucose (UA) (Negative) Urine Ketones (Negative) Urine Blood (Negative) Urine Nitrite (Negative) Urine Bilirubin (Negative) Urine Urobilinogen (Negative) Ur Leukocyte Esterase (Negative) Urine WBC (Auto) (0-5) /hpf Urine RBC (Auto) (0-4) /hpf U Hyaline Cast (Auto) (0-5) /lpf U Epithel Cells (Auto) (0-5) /lpf Urine Bacteria (Auto) (Negative) Valproic Acid (50-100) mcg/ml COVID-19 PCR POSITIVE A* (Negative) Influenza Type A (PCR) Neg for Influ A (Neg) Influenza Type B (PCR) Neg for Influ B (Neg) SARS-CoV-2 RNA (RT-PCR) Cancelled 04/06/20 Range/Units 00:33 WBC (4.8-10.8) K/uL RBC (4.7-6.1) M/uL Hgb (14.0-18.0) g/dL Hct (42-52) % MCV (80-100) fL MCH (25-34) pg MCHC (32-36) g/dL RDW Std Deviation (36.4-46.3) fL RDW Coeff of Dena (11.5-14.5) % Plt Count (130-400) K/uL MPV (7.4-10.4) fL Immature Gran % (Auto) % Neut % (Auto) % Lymph % (Auto) % [place] % (Auto) % Eos % (Auto) % Baso % (Auto) % Immature Gran # (Auto) (0.00-0.02) K/uL Neut # (Auto) (1.4-6.5) K/uL Lymph # (Auto) (1.2-3.4) K/uL [place] # (Auto) (0.11-0.59) K/uL Eos # (Auto) (0-0.5) K/uL Baso # (Auto) (0-0.2) K/uL PT (9.0-12.0) Seconds INR (0.9-1.1) APTT (21.0-31.0) Seconds PTT Ratio Sodium (136-145) mmol/L Potassium (3.5-5.1) mmol/L Chloride (98-107) mmol/L Carbon Dioxide (21-32) mmol/L Anion Gap (3-11) BUN (7-18) mg/dl Creatinine (0.6-1.4) mg/dl Est Cr Clr Drug Dosing ml/min Est GFR ( Amer) Est GFR (Non-Af Amer) BUN/Creatinine Ratio (10-20) Glucose (70-99) mg/dl Lactate (0.4-2.0) mmol/L Calcium (8.5-10.1) mg/dl Magnesium (1.8-2.4) mg/dl Total Bilirubin (0.2-1) mg/dl AST (15-37) U/L ALT (12-78) U/L Alkaline Phosphatase (45-117) U/L Troponin I (0-0.045) ng/ml Total Protein (6.4-8.2) gm/dl Albumin (3.4-5.0) gm/dl Globulin (2.5-4.0) gm/dl Albumin/Globulin Ratio (0.9-2) Procalcitonin (0-0.5) ng/ml Urine Color Yellow Urine Appearance Clear (Clear) Urine pH 5.0 (4.5-7.5) Ur Specific [place] 1.020 (1.000-1.030) Urine Protein Trace H (Negative) Urine Glucose (UA) Negative (Negative) Urine Ketones Negative (Negative) Urine Blood Negative (Negative) Urine Nitrite Negative (Negative) Urine Bilirubin Negative (Negative) Urine Urobilinogen Negative (Negative) Ur Leukocyte Esterase Negative (Negative) Urine WBC (Auto) 1-5 (0-5) /hpf Urine RBC (Auto) 0-4 (0-4) /hpf U Hyaline Cast (Auto) 1-5 (0-5) /lpf U Epithel Cells (Auto) 0-5 (0-5) /lpf Urine Bacteria (Auto) Negative (Negative) Valproic Acid (50-100) mcg/ml COVID-19 PCR (Negative) Influenza Type A (PCR) (Neg) Influenza Type B (PCR) (Neg) SARS-CoV-2 RNA (RT-PCR) Administered Medications Discontinued Medications [facility] Stop: 05/06/20 08:59 Last Admin: 04/06/20 08:33 Dose: 0.25 mg Documented by: [id number] Alprazolam (Xanax) 0.5 mg PO DAILY@1999 [facility] Stop: 05/06/20 02:21 Last Admin: 04/06/20 04:05 Dose: Not Given Documented by: [id number] Amiodarone HCl (Cordarone Iv Bolus & Drip) 1 ea IV NOW STA; Protocol Stop: 04/05/20 22:20 Last Admin: 04/06/20 04:04 Dose: Not Given Documented by: [id number] Amiodarone HCl () 1 ea N/A ONE ONE Stop: 04/06/20 09:01 Last Admin: 04/06/20 11:10 Dose: 1 ea Documented by: [id number] Aspirin (Ecotrin Ectab) 81 mg [facility] Stop: 05/06/20 08:59 Last Admin: 04/06/20 08:33 Dose: 81 mg Documented by: [id number] Clopidogrel Bisulfate (Plavix) 75 mg [facility] Stop: 05/06/20 08:59 Last Admin: 04/06/20 08:33 Dose: 75 mg Documented by: [id number] Divalproex Sodium (Depakote Delay Release) 250 mg PO BID [facility] Stop: 05/06/20 02:21 Last Admin: 04/06/20 03:34 Dose: 250 mg Documented by: [id number] Divalproex Sodium (Depakote Extended Release) 500 mg PO BID [facility] Stop: 05/06/20 02:21 Last Admin: 04/06/20 08:33 Dose: 500 mg Documented by: [id number] Admin: 04/06/20 03:33 Dose: 500 mg Documented by: [id number] Folic Acid (Folvite) 1 [facility] Stop: 05/06/20 08:59 Last Admin: 04/06/20 08:33 Dose: 1 mg Documented by: [id number] Furosemide (Lasix) 40 mg IV NOW STA Stop: 04/06/20 05:43 Last Admin: 04/06/20 06:07 Dose: 40 mg Documented by: [id number] Furosemide (Lasix) 40 mg IV ONE ONE Stop: 04/06/20 10:31 Last Admin: 04/06/20 11:10 Dose: 40 mg Documented by: [id number] Heparin Sodium/Dextrose () 1 ea IV ONE ONE; Protocol Stop: 04/05/20 20:25 Last Admin: 04/06/20 02:43 Dose: Not Given Documented by: [id number] Hydroxychloroquine Sulfate (Plaquenil) 400 mg PO BID [facility] Stop: 04/11/20 00:59 Last Admin: 04/06/20 03:38 Dose: 400 mg Documented by: [id number] Heparin Sodium/Dextrose (Heparin Sodium/Dextrose) 25,000 units in 500 mls @ 22 mls/hr IV .[id number] ALEJANDRA; Protocol Stop: 05/05/20 20:29 Last Titration: 04/06/20 11:17 Dose: 1,100 units/hr, 22 mls/hr Documented by: [id number] Cosigned by: [id number] Titration: 04/06/20 07:36 Dose: 1,100 units/hr, 22 mls/hr Documented by: [id number] Cosigned by: [id number] Titration: 04/06/20 07:11 Dose: 0 units/hr, 0 mls/hr Documented by: [id number] Cosigned by: [id number] Titration: 04/06/20 04:06 Dose: 0 units/hr, 0 mls/hr Documented by: [id number] Cosigned by: [id number] Admin: 04/05/20 21:02 Dose: 1,350 units/hr, 27 mls/hr Documented by: [id number] Cosigned by: [id number] Albumin Human (Albumin 25%) 50 mls @ 50 mls/hr IV Q1H [facility] Stop: 04/06/20 03:59 Last Infusion: 04/06/20 05:30 Dose: 0 mls/hr Documented by: [id number] Admin: 04/06/20 04:20 Dose: 50 mls/hr Documented by: [id number] Infusion: 04/06/20 04:20 Dose: 50 mls/hr Documented by: [id number] Admin: 04/06/20 03:20 Dose: 50 mls/hr Documented by: [id number] Famotidine 20 mg/ Syringe 5 mls @ 2.5 mls/min IV Q12 ALEJANDRA Stop: 05/06/20 02:21 Last Admin: 04/06/20 09:23 Dose: 2.5 mls/min Documented by: [id number] Admin: 04/06/20 03:41 Dose: 2.5 mls/min Documented by: [id number] Ceftriaxone Sodium 2,000 mg/ (Dextrose) 70 mls @ 140 mls/hr IV DAILY ALEJANDRA; Protocol Stop: 04/13/20 08:59 Last Infusion: 04/06/20 09:27 Dose: 0 mls/hr Documented by: [id number] Admin: 04/06/20 08:33 Dose: 140 mls/hr Documented by: [id number] Doxycycline Hyclate 100 mg/ (Dextrose) 110 mls @ 50 mls/hr IV Q12 ALEJANDRA Stop: 04/13/20 02:59 Last Infusion: 04/06/20 11:17 Dose: 0 mls/hr Documented by: [id number] Admin: 04/06/20 08:33 Dose: 50 mls/hr Documented by: [id number] Infusion: 04/06/20 06:25 Dose: 0 mls/hr Documented by: [id number] Admin: 04/06/20 04:13 Dose: 50 mls/hr Documented by: [id number] Amiodarone HCl/Dextrose (Nexterone / D5w) 150 mg in 100 mls @ 600 mls/hr IV NOW STA Stop: 04/06/20 03:01 Last Infusion: 04/06/20 04:02 Dose: 0 mls/hr Documented by: [id number] Cosigned by: [id number] Admin: 04/06/20 03:45 Dose: 600 mls/hr Documented by: [id number] Cosigned by: [id number] Amiodarone HCl 450 mg/ (Dextrose) 250 mls @ 33.333 mls/hr IV .Q7H30M ALEJANDRA; Protocol Stop: 05/06/20 03:14 Last Titration: 04/06/20 11:17 Dose: 0.5 mg/min, 16.7 mls/hr Documented by: [id number] Cosigned by: [id number] Titration: 04/06/20 07:11 Dose: 1 mg/min, 33.3 mls/hr Documented by: [id number] Cosigned by: [id number] Admin: 04/06/20 04:00 Dose: 1 mg/min, 33.3 mls/hr Documented by: [id number] Cosigned by: [id number] Sodium Chloride (Nss) 500 mls @ 250 mls/hr IV .Q2H ONE Stop: 04/06/20 05:50 Last Admin: 04/06/20 05:29 Dose: Not Given Documented by: [id number] Norepinephrine Bitartrate 8 mg (/ Dextrose) 508 mls @ 21.363 mls/hr IV .[id number] ALEJANDRA; Protocol Stop: 05/06/20 04:44 Last Titration: 04/06/20 11:17 Dose: 0.07 mcg/kg/min, 21.4 mls/hr Documented by: [id number] Titration: 04/06/20 07:11 Dose: 0.07 mcg/kg/min, 21.4 mls/hr Documented by: [id number] Titration: 04/06/20 05:49 Dose: 0.07 mcg/kg/min, 21.4 mls/hr Documented by: [id number] Admin: 04/06/20 05:28 Dose: 0.05 mcg/kg/min, 15.3 mls/hr Documented by: [id number] Cosigned by: [id number] Miscellaneous () 1 ea N/A NOW STA Stop: 04/05/20 22:20 Last Admin: 04/06/20 02:43 Dose: Not Given Documented by: [id number] Morphine Sulfate (Morphine Sulfate) Confirm Administered Dose 4 mg .ROUTE .STK- MED ONE Stop: 04/06/20 12:02 Last Admin: 04/06/20 12:04 Dose: 4 mg Documented by: [id number] Pantoprazole Sodium (Protonix) 40 mg PO BID ALEJANDRA Stop: 05/06/20 08:59 Last Admin: 04/06/20 08:33 Dose: 40 mg Documented by: [id number] Sotalol HCl (Betapace) 80 mg PO BID ALEJANDRA Stop: 05/06/20 02:21 Last Admin: 04/06/20 04:04 Dose: Not Given Documented by: [id number] Thiamine HCl (Vitamin B-1) 100 mg PO QAM ALEJANDRA Stop: 05/06/20 08:59 Last Admin: 04/06/20 08:33 Dose: 100 mg Documented by: [id number] Imaging Data Radiologist's Impression: XR chest 1V portable CLINICAL HISTORY: SEPSIS COUGH COMPARISON STUDY: 02/22/2020 FINDINGS: The heart is enlarged. There is a left subclavian dual-chamber central venous pacemaker present. There are progressive bilateral lower lung zone predominant interstitial pulmonary opacities. The findings likely represent progressive congestive failure superimposed on chronic lung disease although a worsening bilateral interstitial infectious/inflammatory processes could appear similar. There are no significant pleural effusions IMPRESSION: 1. Progressive bilateral lower lung zone predominant interstitial pulmonary opacities 2. While likely representing worsening congestive failure superimposed on chronic lung disease, a worsening bilateral interstitial infectious/inflammatory processes could appear similar. Clinical and radiographic follow-up recommended ACT 112: Negative or not required by law. Electronically signed by: Xander Lau M.D. 04/05/2020 8:17 PM Dictated: 04/05/202015 Transcribed: 04/05/202015 Blood Pressure Blood Pressure Findings: Low blood pressure Discharge Plan Visit Data *Final* Discharge Date/Time: 04/06/20 01:24 Chief Complaint: Illness Stated Complaint: TACHYCARIDA, ILLNESS, DEFIB KEEPS FIRING ED Provider: Quirino Nagel Discharge Problem: ST elevation myocardial infarction (STEMI), Suspected COVID-19 virus infection, Hypoxia, Fever, Elevated troponin I level, Ventricular tachycardia Patient Disposition: Admitted As Inpatient Condition: Serious Discharge Instructions Interventions: ED Discharge Assessment Last Done: 04/06/20 01:24 Discharge Problem: ST elevation myocardial infarction (STEMI) Qualifiers: Involved coronary artery: unspecified coronary artery Qualified Code(s): I21.3 - ST elevation (STEMI) myocardial infarction of unspecified site Fever Qualifiers: Fever type: unspecified Qualified Code(s): R50.9 - Fever, unspecified
[2020-04-05 19:48] LABS: Basophils # (auto) 0.01 K/uL (0-0.2); Basophils % (auto) 0.2 %; Hematocrit (blood only) 34.3 % (42-52); Hemoglobin 10.8 g/dL (14.0-18.0); Immature Granulocytes # (auto) 0.01 K/uL (0.00-0.02); Immature Granulocytes % (auto) 0.2 %; Lymphocytes # (auto) 0.57 K/uL (1.2-3.4); Lymphocytes % (auto) 11.1 %; Mean Corpuscular Hemoglobin 28.2 pg (25-34); Mean Corpuscular Hgb Conc 31.5 g/dL (32-36); Mean Corpuscular Volume 89.6 fL (80-100); Mean Platelet Volume 10.5 fL (7.4-10.4); Monocytes # (auto) 0.62 K/uL (0.11-0.59); Monocytes % (auto) 12.1 %; Neutrophils # (auto) 3.91 K/uL (1.4-6.5); Neutrophils % (auto) 76.4 %; Platelet Count 117 K/uL (130-400); RDW Coefficient of Variation 19.2 % (11.5-14.5); RDW Standard Deviation 63.1 fL (36.4-46.3); Red Blood Count 3.83 M/uL (4.7-6.1); White Blood Count 5.12 K/uL (4.8-10.8)
[2020-04-05 19:58] LABS: INR 1.6 (0.9-1.1); Partial Thromboplastin Ratio 1.2; Partial Thromboplastin Time 34.3 Seconds (21.0-31.0); Prothrombin Time 16.6 Seconds (9.0-12.0)
[2020-04-05 20:04] LABS: Albumin Level 2.9 gm/dl (3.4-5.0); BUN Creatinine Ratio 21.4 (10-20); Calcium 7.7 mg/dl (8.5-10.1); Creatinine Clr Calc Pharmacy 47.2 ml/min; Est GFR (African American) 55.1; Est GFR (Non-African American) 47.5; Magnesium 2.1 mg/dl (1.8-2.4); Potassium 4.1 mmol/L (3.5-5.1)
[2020-04-05 20:12] LABS: Albumin Globulin Ratio 0.8 (0.9-2); Bilirubin,Total 0.7 mg/dl (0.2-1); Globulin 3.6 gm/dl (2.5-4.0); Total Protein 6.5 gm/dl (6.4-8.2)
--- NOTE | 2020-04-05 20:19 | XRay Report ---
XR chest 1V portable CLINICAL HISTORY: SEPSIS COUGH COMPARISON STUDY: 02/22/2020 FINDINGS: The heart is enlarged. There is a left subclavian dual-chamber central venous pacemaker pre sent. There are progressive bilateral lower lung zone predominant interstitial pulmonary opacities. T he findings likely represent progressive congestive failure superimposed on chronic lung disease alth ough a worsening bilateral interstitial infectious/inflammatory processes could appear similar. There are no significant pleural effusions IMPRESSION: 1. Progressive bilateral lower lung zone predominant interstitial pulmonary opacities 2. While likely representing worsening congestive failure superimposed on chronic lung disease, a wor sening bilateral interstitial infectious/inflammatory processes could appear similar. Clinical and ra diographic follow-up recommended ACT 112: Negative or not required by law. Electronically signed by: Xander Lau M.D. 04/05/2020 8:17 PM
[2020-04-05] MEDS ORDERED: Heparin IV Standard *NO* Bolus IV ONE (20:24)
[2020-04-05] MEDS ORDERED: HEPARIN SODIUM/DEXTROSE 25,000 UNITS/500 ML BAG IV SCH (20:30)
[2020-04-05 20:31] LABS: Influenza A virus by PCR Neg for Influ A (Neg); Influenza B virus by PCR Neg for Influ B (Neg)
[2020-04-05] MEDS ORDERED: STAT IV Infusion **Titration per Protocol STA (22:19)
[2020-04-05] MEDS ORDERED: AMIODARONE IV BOLUS & DRIP IV STA (22:19)
[2020-04-05] MEDS ORDERED: AMIODARONE / D5W 150 MG/100 ML BAG IV STA (22:19)
[2020-04-05] MEDS ORDERED: 0.2 MICRON FILTER SET 1 EA IV ONE (22:19)
[2020-04-05] MEDS ORDERED: AMIODARONE 450 MG in D5W 250ML IN *POLYOLEFIN BAG* 241 ML IV SCH (22:29)
--- NOTE | 2020-04-05 22:38 | Critical Care Consultation ---
Date of Consultation April 05, 2020 Assessment & Plan (1) ST elevation myocardial infarction (STEMI): Reason Critically Ill: 75-year-old male with inferior ST elevation [place] (undergoing medical management), V. 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 tach/PAFpatient does have ICD, ICD report revealed patient has been shocked for wide-complex ventricular tachycardia 12 times in the past 48 hours -Does take sotalol as home med for history of A. fib dysrhythmia, was cardioverted in October -Currently in sinus rhythm with multiple PAF's on EKG - QTC 483, will limit QT prolonging medications and monitor closely with routine ekgs -We will bolus and start on amiodarone drip for now -Holding home dose Eliquis for now as patient is on heparin drip -Maximize electrolytes -Continuous monitor on telemetry CHF/ischemic cardiomyopathyecho from 08/14 shows EF 35%, mild mitral regurg, mild tricuspid regurg -We will repeat echo in a.m. -Continue Plavix, isosorbide mononitrate, MTP; holding losartan for ANN MARIE -will diuresis as needed with IV Lasix Respiratory - Acute on chronic hypoxic respiratory insufficiencyCHF exacerbation versus pneumonia -Patient positive COVID-19 rapid PCR history COPD, on Trelegy Ellipta -Currently requiring 4 L nasal cannula -Chest x-ray with bilateral opacities -Caution with fluids, as patient has reduced EF -Continue nebs, would hold on steroids for now as they are contraindicated for COVID-19 GI - GERDcontinue PPI RENAL/LYTES - AKIcreatinine 1.44 on admission with baseline 1.1-1.2 -Avoid nephrotoxins, maintain maps greater than 65, careful with IV fluid resuscitation as patient has EF 35% -Continue to trend with routine BMPs - BPHhistory of obstructive prostate hyperplasia Ariza for strict I's and O's ENDO - No history diabetes or thyroid disease ICU hyperglycemic protocol HEME - H&H currently stable, monitor routine CBCs ID - COVID-19 positive-patient presents from assisted living which has had multiple COVID positive patient's -Rapid COVID-19 positive -We will continue with supportive care, we will not intubate per patient wishes -Blood cultures pending and starting on broad-spectrum antibiotics to cover potential superimposed bacterial pneumonia LINES/IV ACCESS - PIV's DVT PROPHYLAXIS - SCDs, heparin drip CODE STATUSDNR/DNI, see HPI I have personally spent 80 minutes of critical care time in the direct management of this patient. This is a life/limb threatening event. This includes time spent evaluating patient, direct bedside care, chart review, placing orders, interpretation of diagnostic studies, discussion with consultants, patient, and family members, as well as other required patient management activities. This time is exclusive of all separately billable procedures, and teaching time and separate from and in addition to any other critical care service time. Thank you for allowing us to participate in the care of this patient. Please refer to my attending physician's documentation for any further recommendations. (2) COVID-19 virus infection: (3) Ventricular tachycardia: (4) Fever: (5) Hypoxia: (6) Abdominal aortic aneurysm: (7) GERD without esophagitis: (8) Prostate hyperplasia with urinary obstruction: (9) Elevated troponin I level: (10) Alcoholic Korsakoff syndrome: (11) Chronic systolic CHF (congestive heart failure): (12) Ischemic cardiomyopathy: (13) ICD (implantable cardioverter-defibrillator) in place: Supervising Physician Co-Signing Physician Notes I agree with findings and plan as documented in the note by NAHUM Alarcon. History of Present Illness History of Present Illness Mr. Alcala is a 75-year-old male with extensive past medical history including ischemic cardiomyopathy, AAA 2012, CHF ICD, PAF (on Eliquis), seizure disorder, and history of Korsakoff syndrome with impaired decision-making (currently patient is alert and oriented and clear and coherent and his thought process). He presents the emergency department earlier tonight with complaints of fatigue, cough, and shortness of breath. He currently resides at a personal fpc but is had multiple COVID-19 patients. He also states that his defibrillator leong d fired approximately 5-7 times earlier today while at rest. Patient states he has had a cough x1 week, and fatigue and shortness of breath was developed over the weekend and progressively become worse. He has denied fever, syncope, chest pain, nausea or vomiting, diarrhea or abdominal pain. An EKG did reveal patient had an inferior ST elevation OH and troponin was elevated to 39. The [facility] meter installer was contacted with these results and a rapid COVID-19 test was performed which resulted positive. At that time the patient was considered to not be appropriate for cath with PCI and will proceed with medical management. His ICD report did reveal that the patient had had 12 events of wide-complex V. tach dysrhythmia in the past 48 hours. Patient was started on heparin and amiodarone drips and plan to admit to the COVID unit under ICU care. I did meet with the patient and evaluate him at bedside and had a long conversation with him in regards to plan of care and CODE STATUS. Patient was clear, coherent, and rational throughout our conversation. In conclusion to our conversation, patient states that he would not want to be placed on a mechanical ventilator if he were to decompensate from a respiratory standpoint or have chest compressions or additional ACLS measures in the event he were to cardiac arrest. He would like to proceed with medical management which would include vasopressors if needed. Given the patient's history of cognitive deficits, I did contact the patient's brother who is his POA and he agrees with this decision. Patient's CODE STATUS now changed to DNR/DNI. Allergies Allergy/AdvReac Type Severity Reaction Status Date / Time amoxicillin Allergy Intermediate Symmetrical Verified 04/05/20 21:35 drug-related intertriginous flexural exanthema lactose AdvReac Intermediate GI SYMPTOMS Verified 04/05/20 21:35 benzalkonium chloride AdvReac Mild ITCHING/SWE Verified 04/05/20 21:35 LLING/RASH gluten AdvReac Unknown gluten Verified 04/05/20 21:35 intolerant per EGD Home Medications Home Medications Medication Instructions Recorded Confirmed Type thiamine HCl (vitamin B1) [Vitamin 100 mg PO QAM #30 tab 01/11/20 04/05/20 Rx B-1] Eliquis 5 mg PO BID #60 tab 02/11/20 04/05/20 Rx Trelegy Ellipta 1 inh INHALATION HS #30 ea 02/11/20 04/05/20 Rx albuterol sulfate 90 mcg INH Q6H PRN #30 ea 02/11/20 04/05/20 Rx clopidogrel [Plavix] 75 mg PO QAM #30 tab 02/11/20 04/05/20 Rx folic acid 1 mg PO QAM #30 tab 02/11/20 04/05/20 Rx isosorbide mononitrate 60 mg PO QAM #30 tab 02/11/20 04/05/20 Rx losartan 25 mg PO HS #30 tab 02/11/20 04/05/20 Rx omeprazole 40 mg PO BID #30 cap 02/11/20 04/05/20 Rx sotalol 80 mg PO BID #60 tab 02/11/20 04/05/20 Rx trazodone 50 mg PO HS #30 tab 02/11/20 04/05/20 Rx furosemide 60 mg PO QAM #30 tab 02/12/20 04/05/20 Rx atorvastatin 80 mg PO HS 02/15/20 04/05/20 History acetaminophen 500 mg PO Q4H PRN MDD 3G 04/05/20 04/05/20 History alprazolam 0.25 mg PO QAM 04/05/20 04/05/20 History alprazolam 0.5 mg PO .DAILY@8PM 04/05/20 04/05/20 History divalproex 250 mg PO BID 04/05/20 04/05/20 History divalproex 500 mg PO BID 04/05/20 04/05/20 History metoprolol succinate 25 mg PO HS 04/05/20 04/05/20 History olanzapine 2.5 mg PO HS 04/05/20 04/05/20 History trazodone 25 mg PO Q6H PRN 04/05/20 04/05/20 History Patient History Medical History (Updated 04/06/20 @ 06:01 by Evan Kenney MD) Alcohol abuse Anemia Arthritis CAD (coronary artery disease), [place] coronary artery Celiac disease Chronic respiratory failure with hypoxia Chronic systolic CHF (congestive heart failure) Emphysema of lung GERD (gastroesophageal reflux disease) Gout Hyperlipidemia Hypertension ICD (implantable cardioverter-defibrillator) in place medtronic [address] Newberry Ischemic cardiomyopathy Ischemic colitis Migraine Myocardial Infarction most recent 2013, adjust med and icd inserted Non-ST elevation [place] (NSTEMI) (Inactive) PAD (peripheral artery disease) Personal history of sudden cardiac successfully resuscitated (Inactive) Pituitary adenoma removal of adenoma from pituitary 2015 Seizure disorder Thrombocytopenia Unstable angina (Inactive) Ventricular tachycardia Surgical History H/O hand surgery Right hand tendon repair History of abdominal aortic aneurysm (AAA) repair 2006 History of cardiac defibrillator placement May 2014 History of pituitary surgery August 2016 History of total hip arthroplasty right and left Hx of wacvo-[id number]-[id number] bypass right and left leg S/P hip replacement (Inactive) Family History Mother , at age 46 Breast cancer Other Cancer Denies family history of Ovarian cancer Prostate cancer Myocardial infarction Colorectal cancer Social History Preferred Language: Palauan Communication Ability: Effective Visual Impairment: No Limitations Hearing Ability: Normal Cardiology Consultants Required: No Beliefs That Will Affect Care: None marital status: marital status details: no children Current Living Situation: Other Current Living Situation Comment: Assisted Living @ [facility] current occupational status: retired Other Information That Helps Us Care for You: No Feels Safe at Home: Yes Safety Concerns: Feels Safe At This Time Smoking Status: Never smoker Age Started Using Tobacco: 19 ; Age Quit Using Tobacco: 61 ; packs per day: 1.5 ; Cigarettes Per Day: 20-40 ; Number of Years Since Quit: 13 ; Second Hand Exposure: No ; Hx Alcohol Use: No Hx Substance Use: No Childhood Exposure to Second-Hand Smoke: No Dental Care, Regularly: Yes Physical Activity Frequency: 3-4 Times per Week Seatbelt Use: always Sunscreen Use: Yes Review of Systems Review of Systems: All systems reviewed & are unremarkable except as noted in HPI & below Physical Exam Constitutional: cooperative and comfortable; not in distress Eyes: PERRL, conjunctivae normal, anicteric sclerae ENMT: external ear and nose normal, oropharynx normal Neck: trachea midline, no thyromegaly Respiratory: Normal respiratory effort, symmetrical chest wall movement, nonlabored breathing, rhonchorous bilateral breath sounds Cardiovascular: Sinus rhythm with PACs on monitor, no JVD, +1 pedal edema bilateral Gastrointestinal (Abdomen): normal bowel sounds, soft, nontender, no hepatosplenomegaly Skin: no rashes, warm and dry Neurologic: PERRL, EOMI, accommodation nl, no face palsy, no dysarthria Psychiatric: A+Ox3, euthymic affect Results & Data Results & Data ([facility]) Vital Signs (Past 12 Hours) Vital Signs Temp Pulse Resp BP Pulse Ox 04/05/20 22:00 88 19 87/66 L 92 04/05/20 21:45 88 30 H 81/65 L 92 04/05/20 21:30 88 27 H 84/60 L 91 04/05/20 21:15 92 H 27 H 91/65 L 91 04/05/20 21:00 91 H 25 H 96/68 L 93 04/05/20 20:45 88 27 H 90/64 L 92 04/05/20 20:30 90 26 H 91/65 L 93 04/05/20 20:15 95 H 23 96/68 L 93 04/05/20 20:11 100 H 24 90/65 L 87 L 04/05/20 20:10 94 H 23 89 L 04/05/20 20:00 98 H 18 67 L 04/05/20 19:50 95 H 26 H 92 04/05/20 19:45 94 H 25 H 91/69 L 94 04/05/20 19:30 90 24 97/57 L 91 04/05/20 19:16 85 26 H 74/51 L 90 04/05/20 19:06 90 22 85/56 L 93 04/05/20 19:03 89 28 H 78/56 L 94 04/05/20 19:01 92 H 28 H 70/37 L 94 04/05/20 18:47 90 27 H 138/115 H 93 04/05/20 17:30 37.8 C H 90 24 138/115 H 92 Coding Level of Care Code Critical Care ea addt'l [address] elevation myocardial infarction (STEMI) I21.3 Involved coronary artery: unspecified coronary artery COVID-19 virus infection U07.1 Ventricular tachycardia I47.2 Fever R50.9 Fever type: unspecified Hypoxia R09.02 Abdominal aortic aneurysm I71.4 GERD without esophagitis K21.9 Prostate hyperplasia with urinary obstruction N40.1; N13.8 Elevated troponin I level R79.89 Alcoholic Korsakoff syndrome F10.96 Chronic systolic CHF (congestive heart failure) I50.22 Ischemic cardiomyopathy I25.5 ICD (implantable cardioverter-defibrillator) in place Z95.810 (1) Fever Fever type: unspecified Qualified Code(s): R50.9 - Fever, unspecified (2) ST elevation myocardial infarction (STEMI) Involved coronary artery: unspecified coronary artery Qualified Code(s): I21.3 - ST elevation (STEMI) myocardial infarction of unspecified site
[2020-04-06 00:45] LABS: Appearance Urine Clear (Clear); Bacteria Urine Automated Negative (Negative); Bilirubin Urine Negative (Negative); Blood Urine Negative (Negative); Color Urine Yellow; Epithelial Cell Urine Auto 0-5 /lpf (0-5); Glucose Urine UA Negative (Negative); Ketones Urine Negative (Negative); Leukocyte Esterase Urine Negative (Negative); Nitrite Urine Negative (Negative); Protein Urine Trace (Negative); RBC Urine Automated 0-4 /hpf (0-4); Urobilinogen Urine Negative (Negative)
[2020-04-06] MEDS ORDERED: HYDROXYCHLOROQUINE SULFATE 200 MG TAB PO SCH (01:00)
[2020-04-06] MEDS ORDERED: SOTALOL HCL 80 MG TAB PO SCH (02:22)
[2020-04-06] MEDS ORDERED: ALPRAZolam 0.5 MG TABLET PO SCH (02:22)
[2020-04-06] MEDS ORDERED: DIVALPROEX DELAY RELEASE 250 MG TABEC PO SCH (02:22)
[2020-04-06] MEDS ORDERED: ACETAMINOPHEN 500 MG TAB PO PRN (02:22)
[2020-04-06] MEDS ORDERED: ICU PROTOCOL FOR HYPERGLYCEMIA PRN (02:22)
[2020-04-06] MEDS ORDERED: TRAZODONE HCL 50 MG TAB PO PRN (02:51)
[2020-04-06] MEDS ORDERED: AMIODARONE / D5W 150 MG/100 ML BAG IV STA (02:52)
[2020-04-06] MEDS ORDERED: ALBUT/IPRATROP 3MG/0.5MG NEB 3 ML VIAL NEB PRN (02:53)
[2020-04-06] MEDS ORDERED: AMIODARONE 450 MG in D5W 250ML IN *POLYOLEFIN BAG* 241 ML IV SCH (03:15)
[2020-04-06 03:16] LABS: Hemoglobin 10.2 g/dL (14.0-18.0); Lymphocytes # (auto) 0.87 K/uL (1.2-3.4); Lymphocytes % (auto) 24.4 %; Mean Corpuscular Hemoglobin 29.2 pg (25-34); Mean Corpuscular Hgb Conc 32.9 g/dL (32-36); Mean Corpuscular Volume 88.8 fL (80-100); Mean Platelet Volume 10.9 fL (7.4-10.4); Monocytes # (auto) 0.52 K/uL (0.11-0.59); Monocytes % (auto) 14.6 %; Neutrophils # (auto) 2.18 K/uL (1.4-6.5); Platelet Count 108 K/uL (130-400); RDW Coefficient of Variation 19.3 % (11.5-14.5); RDW Standard Deviation 63.7 fL (36.4-46.3); Red Blood Count 3.49 M/uL (4.7-6.1); White Blood Count 3.57 K/uL (4.8-10.8)
[2020-04-06] MEDS: ALBUMIN 25% 50 ML IV SCH ×2 (03:20→04:20)
[2020-04-06] MEDS: DIVALPROEX EXTENDED RELEASE 500 MG TAB PO SCH ×2 (03:33→08:33)
[2020-04-06 03:40] LABS: Acanthocytes 1+; Echinocytes 1+
[2020-04-06] MEDS: FAMOTIDINE 20 MG in SYRINGE 3 ML IV SCH ×2 (03:41→09:23)
[2020-04-06 03:45] LABS: Albumin Level 2.6 gm/dl (3.4-5.0); BUN Creatinine Ratio 19.9 (10-20); Calcium 7.2 mg/dl (8.5-10.1); Creatinine Clr Calc Pharmacy 46.1 ml/min; Est GFR (Non-African American) 50.9; Potassium 4.1 mmol/L (3.5-5.1)
[2020-04-06] MEDS ORDERED: SODIUM CHLORIDE 0.9% 500 ML IV ONE (03:51)
[2020-04-06 03:53] LABS: INR 1.4 (0.9-1.1); Prothrombin Time 14.9 Seconds (9.0-12.0)
[2020-04-06 03:58] LABS: Partial Thromboplastin Ratio > 5.0
[2020-04-06 04:00] LABS: Partial Thromboplastin Time > 139.0 Seconds (21.0-31.0)
[2020-04-06 04:07] LABS: Albumin Globulin Ratio 0.8 (0.9-2); Bilirubin,Total 0.6 mg/dl (0.2-1); C Reactive Protein 4.88 mg/dl (0-0.29); Globulin 3.4 gm/dl (2.5-4.0); Troponin I 44.6 ng/ml (0-0.045)
[2020-04-06] MEDS: DOXYCYCLINE HYCLATE 100 MG in DEXTROSE 5% 100 ML IV SCH ×2 (04:13→08:33)
[2020-04-06] MEDS ORDERED: NOREPINEPHRINE (Adult) 8 MG in DEXTROSE 5% 500 ML IV SCH (04:45)
--- NOTE | 2020-04-06 05:29 | Procedure Note ---
Procedure Note Date of Service April 06, 2020 Note INTERNAL JUGULAR CENTRAL LINE PROCEDURE NOTE: Procedure: Internal Jugular Central Line Placement Attending: Dr. Carie Jasmine Provider: ADRY Alarcon Indication: Central Drug Administration, multiple Lab Draws Necessary, etc. Anesthesia: Lidocaine 1% Line was placed emergently in the setting of hypotension/shock with need for vasopressors A time-out was completed verifying correct patient, procedure, site, positioning, and implants(s) or special equipment if applicable. Patients right neck was cleansed and draped in the typical sterile fashion using Chloraprep. The Internal Jugular Vein and Carotid Artery were identified using ultrasound. The superficial tissue was anesthetized using 3 mL of 1% lidocaine without epinephrine under direct visualization with the ultrasound. After adequate anesthetization was achieved, the Internal Jugular vein was cannulated under direct ultrasound guidance using an introducer needle on a syringe. Good venous blood return was maintained prior to removal of syringe from introducer needle. Using Seldinger Technique, a guide wire was advanced through the introducer needle without resistance. The introducer needle was removed and ultrasound images were obtained of the guide wire within the Internal Jugular Vein. A small incision was made in penetrating fashion at the guide wire insertion site utilizing an 11 blade scalpel. The dilator was advanced to the vessel without resistance. The dilator was exchanged for the triple lumen catheter which was advanced into the vessel without resistance. The guide wire was removed intact from the catheter without issue. Claves were placed on each catheter tip with confirmation of good blood flow from each lumen. Each port was easily flushed with sterile saline. The catheter was placed at 15 cm and sutured in place. BioPatch was applied to the catheter and a sterile Tegaderm dressing was applied over the catheter with careful attention to sterility. Patient tolerated procedure well. No immediate complications were met. Post procedure x-ray was completed, placement was appropriate and no pneumothorax was noted. Procedural Ultrasound Guidance: Procedure Date: 04/06/2020 Indication: Central line insertion Attending: Dr. Carie Jasmine Provider: ADRY Alarcon Artery AND Vein visualized: Yes Compressible Vein: Yes Guidewire or Short Catheter seen in vein prior to dilation: Yes Line confirmed in Vein with ultrasound: Yes Coding
[2020-04-06] MEDS ORDERED: FUROSEMIDE 40 MG in SYRINGE 0 ML IV ONE ×2 (05:36→09:35)
[2020-04-06] MEDS ORDERED: FUROSEMIDE 40 MG/4 ML VIAL IV STA (05:42)
--- NOTE | 2020-04-06 06:03 | History & Physical Report ---
Date of Service April 06, 2020 The patient was seen and examined on April 05, 2020 Assessment & Plan (1) COVID-19 virus infection: Admit to the COVID unit. Hydroxychloroquine 400 mg p.o. twice daily x5 days. Doxycycline 100 mg IV every 12 hours. Ceftriaxone 1 g IV daily Guaifenesin extended release 600 mg p.o. twice daily Nasal cannula 2 L oxygen, titrate to keep pulse ox 94 to 95% Present on Admission?: Yes (2) ST elevation myocardial infarction (STEMI): Consult with interventional cardiology while in ED. Continue metoprolol succinate, losartan, isosorbide mononitrate, clopidogrel with hold parameters. Hold Eliquis Placed on heparin drip. Consult Dr. Barrow Present on Admission?: Yes (3) Ventricular tachycardia: Patient was noted to have several firings of his AICD during the day. We will hold sotalol, and place on amiodarone infusion Present on Admission?: Yes (4) GERD without esophagitis: Omeprazole 40 mg p.o. twice daily Present on Admission?: Yes (5) Psoriatic arthropathy: (6) Alcoholic Korsakoff syndrome: Continue thiamine and folic acid Present on Admission?: Yes (7) Wernickes encephalopathy: Continue thiamine and folic acid. Continue alprazolam and trazodone and olanzapine. Present on Admission?: Yes (8) Admitted to intensive care unit: Consulting weather algorithm scientist team with Dr. Jasmine Present on Admission?: Yes (9) Seizure disorder: Seizure disorder/history of pituitary adenoma surgery- Continue divalproex 750 mg p.o. twice daily Present on Admission?: Yes Admission and Anticipated Discharge Date Admission Date: April 06, 2020 Anticipated date of discharge: 04/20/20 History of Present Illness Chief Complaint: Patient presents to the emergency department with the acute development of shortness of breath. Primary Care Provider: Quirino Hensley MD The patient is a 75-year-old male with a past medical history including coronary disease, thrombocytopenia, celiac disease, PAD, chronic systolic CHF, gout, pituitary adenoma, seizure disorder, AICD, atrial fibrillation, ischemic cardiomyopathy, GERD, hyperlipidemia, hypertension, COPD, Wernicke-Korsakoff syndrome with dementia. He presents to the emergency department with complaint of shortness of breath. In the emergency department, work-up included laboratories which were significant for an elevated troponin of 39.0, and EKG with ST elevations in inferior chest leads suggestive of acute KS, and COVID-19 positive testing. Via conversation of the ED physician Dr. Nagel with interventional cardiology Dr. Barrow, it was determined that patient would best be served by holding Eliquis, and starting heparin drip per protocol. Discussions with staff and the patient, his POA brother, and close friend, it was determined the patient would be a DNR/DNI, although, he would except pressors for blood pressure support. Of note, his AICD was interrogated in the emergency department, and was found to have fired several times in the previous 24 hours due to V. tach episodes. Determination was made to place the patient in the COVID unit/ICU, as the patient was likely did not need to be placed on the amiodarone infusion, along with Levophed due to declining blood pressure. Allergies Allergy/AdvReac Type Severity Reaction Status Date / Time amoxicillin Allergy Intermediate Symmetrical Verified 04/05/20 21:35 drug-related intertriginous flexural exanthema lactose AdvReac Intermediate GI SYMPTOMS Verified 04/05/20 21:35 benzalkonium chloride AdvReac Mild ITCHING/SWE Verified 04/05/20 21:35 LLING/RASH gluten AdvReac Unknown gluten Verified 04/05/20 21:35 intolerant per EGD Home Medications Home Medications Medication Instructions Recorded Confirmed Type thiamine HCl (vitamin B1) [Vitamin 100 mg PO QAM #30 tab 01/11/20 04/05/20 Rx B-1] Eliquis 5 mg PO BID #60 tab 02/11/20 04/05/20 Rx Trelegy Ellipta 1 inh INHALATION HS #30 ea 02/11/20 04/05/20 Rx albuterol sulfate 90 mcg INH Q6H PRN #30 ea 02/11/20 04/05/20 Rx clopidogrel [Plavix] 75 mg PO QAM #30 tab 02/11/20 04/05/20 Rx folic acid 1 mg PO QAM #30 tab 02/11/20 04/05/20 Rx isosorbide mononitrate 60 mg PO QAM #30 tab 02/11/20 04/05/20 Rx losartan 25 mg PO HS #30 tab 02/11/20 04/05/20 Rx omeprazole 40 mg PO BID #30 cap 02/11/20 04/05/20 Rx sotalol 80 mg PO BID #60 tab 02/11/20 04/05/20 Rx trazodone 50 mg PO HS #30 tab 02/11/20 04/05/20 Rx furosemide 60 mg PO QAM #30 tab 02/12/20 04/05/20 Rx atorvastatin 80 mg PO HS 02/15/20 04/05/20 History acetaminophen 500 mg PO Q4H PRN MDD 3G 04/05/20 04/05/20 History alprazolam 0.25 mg PO QAM 04/05/20 04/05/20 History alprazolam 0.5 mg PO .DAILY@8PM 04/05/20 04/05/20 History divalproex 250 mg PO BID 04/05/20 04/05/20 History divalproex 500 mg PO BID 04/05/20 04/05/20 History metoprolol succinate 25 mg PO HS 04/05/20 04/05/20 History olanzapine 2.5 mg PO HS 04/05/20 04/05/20 History trazodone 25 mg PO Q6H PRN 04/05/20 04/05/20 History Past Med/Surg History Medical History Alcohol abuse Anemia Arthritis CAD (coronary artery disease), rincon coronary artery Celiac disease Chronic respiratory failure with hypoxia Chronic systolic CHF (congestive heart failure) Emphysema of lung GERD (gastroesophageal reflux disease) Gout Hyperlipidemia Hypertension ICD (implantable cardioverter-defibrillator) in place medtronic [address] Newberry Ischemic cardiomyopathy Ischemic colitis Migraine Myocardial Infarction most recent 2013, adjust med and icd inserted Non-ST elevation KS (NSTEMI) (Inactive) PAD (peripheral artery disease) Personal history of sudden cardiac successfully resuscitated (Inactive) Pituitary adenoma removal of adenoma from pituitary 2015 Thrombocytopenia Unstable angina (Inactive) Ventricular tachycardia Surgical History H/O hand surgery Right hand tendon repair History of abdominal aortic aneurysm (AAA) repair 2006 History of cardiac defibrillator placement May 2014 History of pituitary surgery August 2016 History of total hip arthroplasty right and left Hx of [id number] bypass right and left leg S/P hip replacement (Inactive) Family History Mother , at age 46 Breast cancer Other Cancer Denies family history of Ovarian cancer Prostate cancer Myocardial infarction Colorectal cancer Social History Preferred Language: Turkmen Communication Ability: Effective Visual Impairment: No Limitations Hearing Ability: Normal Commercial Census Taker Required: No Beliefs That Will Affect Care: None marital status: marital status details: no children Current Living Situation: Other Current Living Situation Comment: Assisted Living @ [facility] current occupational status: retired Other Information That Helps Us Care for You: No Feels Safe at Home: Yes Safety Concerns: Feels Safe At This Time Smoking Status: Never smoker Age Started Using Tobacco: 19 ; Age Quit Using Tobacco: 61 ; packs per day: 1.5 ; Cigarettes Per Day: 20-40 ; Number of Years Since Quit: 13 ; Second Hand Exposure: No ; Hx Alcohol Use: No Hx Substance Use: No Childhood Exposure to Second-Hand Smoke: No Dental Care, Regularly: Yes Physical Activity Frequency: 3-4 Times per Week Seatbelt Use: always Sunscreen Use: Yes Review of Systems Review of Systems: The patient denies chest pain, palpitations, cough, lower extremity swelling, sore throat, fevers, chills, sweats, nausea, vomiting, diarrhea , constipation, abdominal pain, pelvic pain, blood in urine or stool, dysuria, urinary frequency or urgency, lightheadedness, dizziness, headache, loss of consciousness, rash, abnormal bruising or bleeding, imbalance, focal or generalized weakness, numbness or tingling in arms or legs, generalized arthralgias or myalgias, back or neck pain, or night sweats. The review of systems is otherwise negative other than for that already noted above, and at least 10 systems have been reviewed. Physical Exam Physical Exam: The patient is awake, alert and oriented 3, well developed and well nourished, normocephalic and atraumatic, lying in bed and in no acute distress. HEENT--PERRL, EOMI, mucous membranes and oropharynx normal. Neck--supple. No JVD. No bruits. Thyroid normal, trachea midline, no adenopathy. Heart--normal S1 and S2. No murmurs, rubs or gallops. Lungs-- few coarse breath sounds bilaterally. No respiratory distress, no accessory muscle use. Abdomen--normal bowel sounds and soft. Nontender. Nondistended. Extremities--no cyanosis or clubbing. No edema. Dermatologic--normal skin turgor, normal color, no abnormal lymph nodes, no rash. Neurologic--cranial nerves II through XII grossly intact. Rheumatologic--normal range of motion. Psychiatric--normal affect. Results & Data Results & Data ([facility]) Vital Signs (Past 12 Hours) Vital Signs Temp Pulse Pulse Resp BP BP Pulse Ox 04/06/20 04:00 76 17 77/43 L 90 04/06/20 03:43 100 H 12 86/63 L 84 L 04/06/20 03:39 84 20 76/60 L 92 04/06/20 03:30 84 26 H 79/58 L 89 L 04/06/20 03:00 87 15 97/62 L 93 04/06/20 02:31 86 7 L 88/58 L 88 L 04/06/20 02:24 97.9 F 107 H 20 88/57 L 88 L 04/06/20 02:21 85 13 93/67 L 90 04/06/20 02:09 97.9 F 93 H 25 H 86/56 L 04/06/20 01:15 93 H 27 H 95/75 L 100 04/06/20 01:01 90 23 88/60 L 04/06/20 01:00 88 25 H 04/06/20 00:45 84 24 103/68 89 L 04/06/20 00:30 89 25 H 97/72 L 95 04/06/20 00:07 91 H 23 93/62 L 93 04/05/20 23:45 90 28 H 80/62 L 96 04/05/20 23:30 92 H 26 H 83/66 L 90 04/05/20 23:15 88 24 85/60 L 90 04/05/20 23:00 89 22 93/63 L 92 04/05/20 22:45 89 27 H 103/68 92 04/05/20 22:30 99.3 F 94 H 27 H 88/64 L 92 04/05/20 22:16 97 H 28 H 93/71 L 93 04/05/20 22:00 88 19 87/66 L 92 04/05/20 21:45 88 30 H 81/65 L 92 04/05/20 21:30 88 27 H 84/60 L 91 04/05/20 21:15 92 H 27 H 91/65 L 91 04/05/20 21:00 91 H 25 H 96/68 L 93 04/05/20 20:45 88 27 H 90/64 L 92 04/05/20 20:30 90 26 H 91/65 L 93 04/05/20 20:15 95 H 23 96/68 L 93 04/05/20 20:11 100 H 24 90/65 L 87 L 04/05/20 20:10 94 H 23 89 L 04/05/20 20:00 98 H 18 67 L 04/05/20 19:50 95 H 26 H 92 04/05/20 19:45 94 H 25 H 91/69 L 94 04/05/20 19:30 90 24 97/57 L 91 04/05/20 19:16 85 26 H 74/51 L 90 04/05/20 19:06 90 22 85/56 L 93 04/05/20 19:03 89 28 H 78/56 L 94 04/05/20 19:01 92 H 28 H 70/37 L 94 04/05/20 18:47 90 27 H 138/115 H 93 Laboratory Results Laboratory Results WBC 3.57 K/uL (4.8-10.8) L 04/06/20 03:00 RBC 3.49 M/uL (4.7-6.1) L 04/06/20 03:00 Hgb 10.2 g/dL (14.0-18.0) L 04/06/20 03:00 Hct 31.0 % (42-52) L 04/06/20 03:00 MCV 88.8 fL (80-100) 04/06/20 03:00 MCH 29.2 pg (25-34) 04/06/20 03:00 MCHC 32.9 g/dL (32-36) 04/06/20 03:00 RDW Std Deviation 63.7 fL (36.4-46.3) H 04/06/20 03:00 RDW Coeff of Dena 19.3 % (11.5-14.5) H 04/06/20 03:00 Plt Count 108 K/uL (130-400) L 04/06/20 03:00 MPV 10.9 fL (7.4-10.4) H 04/06/20 03:00 Immature Gran % (Auto) 0.0 % 04/06/20 03:00 Neut % (Auto) 61.0 % 04/06/20 03:00 Lymph % (Auto) 24.4 % 04/06/20 03:00 Towner % (Auto) 14.6 % 04/06/20 03:00 Eos % (Auto) 0.0 % 04/06/20 03:00 Baso % (Auto) 0.0 % 04/06/20 03:00 Immature Gran # (Auto) 0.00 K/uL (0.00-0.02) 04/06/20 03:00 Neut # (Auto) 2.18 K/uL (1.4-6.5) 04/06/20 03:00 Lymph # (Auto) 0.87 K/uL (1.2-3.4) L 04/06/20 03:00 Towner # (Auto) 0.52 K/uL (0.11-0.59) 04/06/20 03:00 Eos # (Auto) 0.00 K/uL (0-0.5) 04/06/20 03:00 Baso # (Auto) 0.00 K/uL (0-0.2) 04/06/20 03:00 Echinocytes 1+ 04/06/20 03:00 Acanthocytes (Spur) 1+ 04/06/20 03:00 PT 14.9 Seconds (9.0-12.0) H 04/06/20 03:00 INR 1.4 (0.9-1.1) H 04/06/20 03:00 APTT > 139.0 Seconds (21.0-31.0) H* 04/06/20 03:00 PTT Ratio > 5.0 04/06/20 03:00 Sodium 140 mmol/L (136-145) 04/06/20 03:00 Potassium 4.1 mmol/L (3.5-5.1) 04/06/20 03:00 Chloride 109 mmol/L (98-107) H 04/06/20 03:00 Carbon Dioxide 24 mmol/L (21-32) 04/06/20 03:00 Anion Gap 7.0 (3-11) 04/06/20 03:00 BUN 27 mg/dl (7-18) H 04/06/20 03:00 Creatinine 1.36 mg/dl (0.6-1.4) 04/06/20 03:00 Est Cr Clr Drug Dosing 46.1 ml/min 04/06/20 03:00 Est GFR ( Amer) 59.0 04/06/20 03:00 Est GFR (Non-Af Amer) 50.9 04/06/20 03:00 BUN/Creatinine Ratio 19.9 (10-20) 04/06/20 03:00 Glucose 88 mg/dl (70-99) 04/06/20 03:00 Lactate 1.8 mmol/L (0.4-2.0) 04/05/20 19:14 Calcium 7.2 mg/dl (8.5-10.1) L 04/06/20 03:00 Magnesium 2.1 mg/dl (1.8-2.4) 04/05/20 19:29 Total Bilirubin 0.6 mg/dl (0.2-1) 04/06/20 03:00 AST 212 U/L (15-37) H 04/06/20 03:00 ALT 36 U/L (12-78) 04/06/20 03:00 Alkaline Phosphatase 56 U/L (45-117) 04/06/20 03:00 Troponin I 44.600 ng/ml (0-0.045) H* 04/06/20 03:00 C-Reactive Protein 4.88 mg/dl (0-0.29) H 04/06/20 03:00 Total Protein 6.0 gm/dl (6.4-8.2) L 04/06/20 03:00 Albumin 2.6 gm/dl (3.4-5.0) L 04/06/20 03:00 Globulin 3.4 gm/dl (2.5-4.0) 04/06/20 03:00 Albumin/Globulin Ratio 0.8 (0.9-2) L 04/06/20 03:00 Procalcitonin 0.21 ng/ml (0-0.5) 04/06/20 03:00 Urine Color Yellow 04/06/20 00:33 Urine Appearance Clear (Clear) 04/06/20 00:33 Urine pH 5.0 (4.5-7.5) 04/06/20 00:33 Ur Specific [place] 1.020 (1.000-1.030) 04/06/20 00:33 Urine Protein Trace (Negative) H 04/06/20 00:33 Urine Glucose (UA) Negative (Negative) 04/06/20 00:33 Urine Ketones Negative (Negative) 04/06/20 00:33 Urine Blood Negative (Negative) 04/06/20 00:33 Urine Nitrite Negative (Negative) 04/06/20 00:33 Urine Bilirubin Negative (Negative) 04/06/20 00:33 Urine Urobilinogen Negative (Negative) 04/06/20 00:33 Ur Leukocyte Esterase Negative (Negative) 04/06/20 00:33 Urine WBC (Auto) 1-5 /hpf (0-5) 04/06/20 00:33 Urine RBC (Auto) 0-4 /hpf (0-4) 04/06/20 00:33 U Hyaline Cast (Auto) 1-5 /lpf (0-5) 04/06/20 00:33 U Epithel Cells (Auto) 0-5 /lpf (0-5) 04/06/20 00:33 Urine Bacteria (Auto) Negative (Negative) 04/06/20 00:33 Nasal Screen MRSA (PCR) Negative (Negative) 04/06/20 02:20 Valproic Acid < 3 mcg/ml (50-100) L 04/05/20 19:29 COVID-19 PCR POSITIVE (Negative) A* 04/05/20 19:29 Influenza Type A (PCR) Neg for Influ A (Neg) 04/05/20 19:29 Influenza Type B (PCR) Neg for Influ B (Neg) 04/05/20 19:29 SARS-CoV-2 RNA (RT-PCR) Cancelled 04/05/20 19:29 [phone] Report Patient: BERYL JEFFERSONAdmit Date: 04/05/20 MR#: [id number]: [address] [place] [address] Acct ID:[id number]: [facility] [address] Zip: [place] [address] Age: 75Location: ED Sex: M Room/Bed: Att Phy:Diagnosis: TACHYCARIDA, ILLNESS, DEFIB KEEPS FIRING Erin Phy: Quirino Hensley, MDService Date: 04/05/20 [facility] Phy:Interpreting Phy: Xander Lau MD Admit Phy: Ordering Phy: Quirino Nagel, DO cc: ~ XR chest 1V portable CLINICAL HISTORY: SEPSIS COUGH COMPARISON STUDY: 02/22/2020 FINDINGS: The heart is enlarged. There is a left subclavian dual-chamber central venous pacemaker present. There are progressive bilateral lower lung zone predominant interstitial pulmonary opacities. The findings likely represent progressive congestive failure superimposed on chronic lung disease although a worsening bilateral interstitial infectious/inflammatory processes could appear similar. There are no significant pleural effusions IMPRESSION: 1. Progressive bilateral lower lung zone predominant interstitial pulmonary opacities 2. While likely representing worsening congestive failure superimposed on chronic lung disease, a worsening bilateral interstitial infectious/inflammatory processes could appear similar. Clinical and radiographic follow-up recommended ACT 112: Negative or not required by law. Electronically signed by: Xander Lau M.D. 04/05/2020 8:17 PM Dictated: 04/05/202015 Transcribed: 04/05/202015 Code Status & VTE Plan Code Status DNR/DNI VTE Prophylaxis Plan VTE Prophylaxis will be ordered: Yes Critical Care Time Critical Care Time: Yes Total Critical Care Time: 50 Total critical care time was 50 minutes PG Care Time/CCT Total # of Minutes Spent Total Time Spent with Patient: Total time spent is greater than 50% in coordination of care (as documented) at patient's floor/unit and/or counseling patient: Critical Care Time: Yes Total Critical Care Time: 50 Coding Level of Care Code 56079 Initial Inpt Care Lvl 3 Diagnoses COVID-[address] elevation myocardial infarction (STEMI) I21.3 Involved coronary artery: unspecified coronary artery Ventricular tachycardia I47.2 GERD without esophagitis K21.9 Psoriatic arthropathy L40.50 Alcoholic Korsakoff syndrome F10.96 Wernickes encephalopathy E51.2 Admitted to intensive care unit Z78.9 Seizure disorder G40.909 Additional Codes Critical Care Time - Critical Care Time: Yes ([id number]) Time Spent (min) 50 (1) ST elevation myocardial infarction (STEMI) Involved coronary artery: unspecified coronary artery Qualified Code(s): I21.3 - ST elevation (STEMI) myocardial infarction of unspecified site
[2020-04-06 06:15] LABS: Partial Thromboplastin Ratio > 5.0
[2020-04-06 06:28] LABS: Partial Thromboplastin Time > 139.0 Seconds (21.0-31.0)
--- NOTE | 2020-04-06 07:01 | XRay Report ---
XR chest 1V portable CLINICAL HISTORY: 75 years-old Male presenting with Central line placement. TECHNIQUE: Portable upright AP view of the chest was obtained. COMPARISON: 04/05/2020. FINDINGS: Left subclavian implanted cardiac defibrillator with leads to the right atrium and right ventricular apex. Right internal jugular central venous catheter terminates in the mid SVC. Several external lead s are also evident. Atherosclerosis of the thoracic aorta. Moderate enlargement of the cardiac silhou ette. Significant heterogeneity of lung parenchyma with peripheral and basilar predominant bilateral opacities. This appears to be superimposed on some degree of pulmonary vascular prominence and inters titial prominence. Calcified granulomata suspected at the right apex. No large effusion or pneumothor ax. Degenerative changes of the thoracic spine. Upper abdomen normal. IMPRESSION: 1. Cardiomegaly with volume overload and congestive change. 2. Composed extensive bilateral peripheral and basilar predominant infiltrates. These have increased from prior exam. This is concerning for worsening multifocal pneumonia, aspiration, or other inflamm atory etiology. Edema is considered less likely. ACT 112: Negative or not required by law. Electronically signed by: Berlin Tovar M.D. 04/06/2020 6:59 AM
[2020-04-06 07:18] LABS: Partial Thromboplastin Ratio 3.2
[2020-04-06 07:22] LABS: Partial Thromboplastin Time 90.4 Seconds (21.0-31.0)
[2020-04-06] MEDS ORDERED: FOLIC ACID 1 MG TAB PO SCH (09:00)
[2020-04-06] MEDS ORDERED: FUROSEMIDE 20 MG TAB PO SCH (09:00)
[2020-04-06] MEDS ORDERED: AMIODARONE RATE CHANGE ONE (09:00)
[2020-04-06] MEDS ORDERED: ASPIRIN 81 MG ECTAB PO SCH (09:00)
[2020-04-06] MEDS ORDERED: CLOPIDOGREL BISULFATE 75 MG TAB PO SCH (09:00)
[2020-04-06] MEDS ORDERED: PANTOprazole 40 MG TAB PO SCH (09:00)
[2020-04-06] MEDS ORDERED: AZITHROMYCIN 500 MG in DEXTROSE 5% 250 ML IV SCH (09:00)
[2020-04-06] MEDS ORDERED: THIAMINE HCL 100 MG TAB PO SCH (09:00)
[2020-04-06] MEDS ORDERED: ALPRAZolam 0.25 MG TABLET PO SCH (09:00)
[2020-04-06] MEDS ORDERED: ISOSORBIDE MONO EXTENDED REL 60 MG TABCR PO SCH (09:00)
[2020-04-06] MEDS ORDERED: cefTRIAXone SODIUM 2,000 MG in DEXTROSE 5% 50 ML IV SCH (09:00)
[2020-04-06 09:15] LABS: Magnesium 2.2 mg/dl (1.8-2.4); Phosphorus 4.3 mg/dl (2.5-4.9)
[2020-04-06 09:27] LABS: D Dimer 980 ug/L FEU (0-500)
[2020-04-06 10:20] LABS: Base Excess VBG -5.5 mEq/L; HCO3 VBG 19 mmol/L; Oxygen Saturation VBG < 60.0 %; PCO2 VBG 35 mmHg (38-50); PO2 VBG 32 mmHg; pH VBG 7.36 (7.36-7.41)
[2020-04-06] MEDS ORDERED: FUROSEMIDE 40 MG/4 ML VIAL IV ONE (10:30)
[2020-04-06] MEDS ORDERED: STAT IV Infusion **Titration per Protocol STA (11:59)
[2020-04-06] MEDS ORDERED: MoRPHine SULF/NSS 250 MG/250 ML BTL IV SCH (12:00)
[2020-04-06] MEDS ORDERED: MoRPHine SULFATE 4 MG/ML 1 ML CARP\\VIAL ONE (12:01)
--- NOTE | 2020-04-06 12:05 | Critical Care Progress Note ---
Date of Service April 06, 2020 Assessment & Plan (1) ST elevation myocardial infarction (STEMI): Reason Critically Ill: 75-year-old male with inferior ST elevation LA (undergoing medical management), V. 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 tach/PAFpatient does have ICD, ICD report revealed patient has been shocked for wide-complex ventricular tachycardia 12 times in the past 48 hours -Does take sotalol as home med for history of A. fib dysrhythmia, was cardioverted in October - QTC 483, will limit QT prolonging medications and monitor closely with routine ekgs -We will bolus and start on amiodarone drip for now -Holding home dose Eliquis for now as patient is on heparin drip -Maximize electrolytes -Continuous monitor on telemetry CHF/ischemic cardiomyopathyecho from 08/14 shows EF 35%, mild mitral regurg, mild tricuspid regurg -ECHO on hold -Continue Plavix, isosorbide mononitrate, MTP; holding losartan for ANN MARIE -will diuresis as needed with IV Lasix Respiratory - Acute on chronic hypoxic respiratory insufficiencyCHF exacerbation versus pneumonia -Patient positive COVID-19 rapid PCR history COPD, on Trelegy Ellipta -Currently requiring 4 L nasal cannula -Chest x-ray with bilateral opacities -Caution with fluids, as patient has reduced EF -Continue nebs, would hold on steroids for now as they are contraindicated f or COVID-19 GI - GERDcontinue PPI RENAL/LYTES - AKIcImproving -Avoid nephrotoxins, maintain maps greater than 65, careful with IV fluid resuscitation as patient has EF 35% -Continue to trend with routine BMPs - BPHhistory of obstructive prostate hyperplasia Ariza for strict I's and O's ENDO - No history diabetes or thyroid disease ICU hyperglycemic protocol HEME - H&H currently stable, monitor routine CBCs ID - COVID-19 positive-patient presents from assisted living which has had multiple COVID positive patient's -Rapid COVID-19 positive -We will continue with supportive care, we will not intubate per patient wishes -Blood cultures pending and starting on broad-spectrum antibiotics to cover potential superimposed bacterial pneumonia LINES/IV ACCESS - PIV's, Right IJ 04/06/20 DVT PROPHYLAXIS - SCDs, heparin drip CODE STATUSDNR/DNI Prognosis very poor. Given the patient is on amiodarone drip for his recurrent V. tach sotalol has been on hold. Keep magnesium greater than 2, phosphorus greater than 3 and potassium greater than 4. No need to follow trend troponins given that irrespective of what it is we are not doing any intervention. No need to follow EKGs. Since coming to the hospital patient has clinical deterioration in his respiratory status. He is requiring more oxygen now going up to 15 L then on BiPAP. I spoke with Dr. Boone who is a web content director regarding the plan of care for the patient. Given that the patient had very poor coronary perfusion to begin with in a patient with ejection fraction was only 35% with cognitive im pairment and other underlying issues patient did not have any intervention done when the STEMI was called. Being on Eliquis patient was not a candidate for even giving TPA. Now it is well over 12 hours for the window of TPA to be given. Given the clinical deterioration of the patient with underlying significant comorbidities the next best step would be to keep the patient comfortable and not escalate the care. Dr. Boone and Dr. Scott were made aware of it. I personally called brother Cari Abernathy who was made aware of the clinical deterioration and recommendation was made to make the patient comfort care. Patient's brother understands and is agreeable to the plan. We will start the patient on morphine drip and keep the patient comfortable Patient's brother wanted to speak with the patient on the phone if possible. This will be arranged as soon as possible. I have personally spent 25 minutes of critical care time in the direct management of this patient. This is a life/limb threatening event. This includes time spent evaluating patient, direct bedside care, chart review, placing orders, interpretation of diagnostic studies, discussion with consultants, patient, and family members, as well as other required patient management activities. This time is exclusive of all separately billable procedures, and teaching time and separate from and in addition to any other critical care service time. Please note the above document was generated using voice recognition software. It may contain grammatical, syntax or spelling errors. (2) COVID-19 virus infection: (3) Ventricular tachycardia: (4) Fever: (5) Hypoxia: (6) Abdominal aortic aneurysm: (7) GERD without esophagitis: (8) Prostate hyperplasia with urinary obstruction: (9) Elevated troponin I level: (10) Alcoholic Korsakoff syndrome: (11) Chronic systolic CHF (congestive heart failure): (12) Ischemic cardiomyopathy: (13) ICD (implantable cardioverter-defibrillator) in place: Admission and Anticipated Discharge Date Admission Date: April 06, 2020 Subjective Patient clinically deteriorating getting more short of breath currently on BiPAP. Results & Data Results & Data ([facility]) Vital Signs (Past 12 Hours) Vital Signs Temp Pulse Pulse Resp BP BP Pulse Ox 04/06/20 11:22 99 H 38 H 99 04/06/20 05:48 81 27 H 92/65 L 90 04/06/20 05:31 81 33 H 84/60 L 86 L 04/06/20 05:29 80 31 H 84/66 L 89 L 04/06/20 05:24 77 30 H 79/58 L 04/06/20 05:00 74 37 H 83/60 L 100 04/06/20 04:57 76 34 H 77/55 L 100 04/06/20 04:30 80 7 L 76/56 L 96 04/06/20 04:12 36.5 C 78 7 L 80/56 L 86 L 04/06/20 04:00 76 17 77/43 L 90 04/06/20 03:43 100 H 12 86/63 L 84 L 04/06/20 03:39 84 20 76/60 L 92 04/06/20 03:30 84 26 H 79/58 L 89 L 04/06/20 03:00 87 15 97/62 L 93 04/06/20 02:31 86 7 L 88/58 L 88 L 04/06/20 02:24 36.6 C 107 H 20 88/57 L 88 L 04/06/20 02:21 85 13 93/67 L 90 04/06/20 02:09 36.6 C 93 H 25 H 86/56 L 04/06/20 01:15 93 H 27 H 95/75 L 100 04/06/20 01:01 90 23 88/60 L 04/06/20 01:00 88 25 H 04/06/20 00:45 84 24 103/68 89 L 04/06/20 00:30 89 25 H 97/72 L 95 04/06/20 00:07 91 H 23 93/62 L 93 04/06/20 03:00 04/06/20 03:00 Coding Level of Care Code Critical Care 1st 30-[address] elevation myocardial infarction (STEMI) I21.3 Involved coronary artery: unspecified coronary artery COVID-19 virus infection U07.1 Ventricular tachycardia I47.2 Fever R50.9 Fever type: unspecified Hypoxia R09.02 Abdominal aortic aneurysm I71.4 GERD without esophagitis K21.9 Prostate hyperplasia with urinary obstruction N40.1; N13.8 Elevated troponin I level R79.89 Alcoholic Korsakoff syndrome F10.96 Chronic systolic CHF (congestive heart failure) I50.22 Ischemic cardiomyopathy I25.5 ICD (implantable cardioverter-defibrillator) in place Z95.810 Time Spent (min) 25 (1) ST elevation myocardial infarction (STEMI) Involved coronary artery: unspecified coronary artery Qualified Code(s): I21.3 - ST elevation (STEMI) myocardial infarction of unspecified site (2) Fever Fever type: unspecified Qualified Code(s): R50.9 - Fever, unspecified
--- NOTE | 2020-04-06 12:58 | Death Pronouncement Note ---
Date of Service April 06, 2020 Pronouncement Note Admission Date Admission Date: April 06, 2020 Date and Time of Date of : 04/06/20 Time of : 12:37 PCOD Preliminary cause of : COVID-19 virus infection Contributing Factors (1) COVID-19 virus infection: (2) ST elevation myocardial infarction (STEMI): (3) Ventricular tachycardia: (4) Fever: (5) Hypoxia: (6) Abdominal aortic aneurysm: (7) GERD without esophagitis: (8) Prostate hyperplasia with urinary obstruction: (9) Elevated troponin I level: (10) Alcoholic Korsakoff syndrome: (11) Chronic systolic CHF (congestive heart failure): (12) Ischemic cardiomyopathy: (13) ICD (implantable cardioverter-defibrillator) in place: Summary Additional details: see discharge summary for details Additional Data Confirmation of : no pulse, no respirations, no heart sounds and pupils fixed and dilated Family: contacted (spoke with his brother Josemanuel over the phone) Attending/PCP notified?: Yes Attending physician: Sarmad Scott, DO Was code activated?: No Autopsy requested?: No title insurance examiner notified?: No Organ bank notified?: No Advance directives: Yes Coding Level of Care Code None Diagnoses COVID-[address] elevation myocardial infarction (STEMI) I21.3 Involved coronary artery: unspecified coronary artery Ventricular tachycardia I47.2 Fever R50.9 Fever type: unspecified Hypoxia R09.02 Abdominal aortic aneurysm I71.4 GERD without esophagitis K21.9 Prostate hyperplasia with urinary obstruction N40.1; N13.8 Elevated troponin I level R79.89 Alcoholic Korsakoff syndrome F10.96 Chronic systolic CHF (congestive heart failure) I50.22 Ischemic cardiomyopathy I25.5 ICD (implantable cardioverter-defibrillator) in place Z95.810
--- NOTE | 2020-04-06 13:02 | Discharge Summary ---
Date of Service April 06, 2020 Admission HPI Per Admitting Provider The patient is a 75-year-old male with a past medical history including coronary disease, thrombocytopenia, celiac disease, PAD, chronic systolic CHF, gout, pituitary adenoma, seizure disorder, AICD, atrial fibrillation, ischemic cardiomyopathy, GERD, hyperlipidemia, hypertension, COPD, Wernicke-Korsakoff syndrome with dementia. He presents to the emergency department with complaint of shortness of breath. In the emergency department, work-up included laboratories which were significant for an elevated troponin of 39.0, and EKG with ST elevations in inferior chest leads suggestive of acute IA, and COVID-19 positive testing. Via conversation of the ED physician Dr. Nagel with interventional cardiology Dr. Barrow, it was determined that patient would best be served by holding Eliquis, and starting heparin drip per protocol. Discussions with staff and the patient, his POA brother, and close friend, it was determined the patient would be a DNR/DNI, although, he would except pressors for blood pressure support. Of note, his AICD was interrogated in the emergency department, and was found to have fired several times in the previous 24 hours due to V. tach episodes. Determination was made to place the patient in the COVID unit/ICU, as the patient was likely did not need to be placed on the amiodarone infusion, along with Levophed due to declining blood pressure. Principal Diagnosis COVID 19 infection Discharge Exam no pulse, no heart sounds, not breathing, pupils fixed, non-responsive Discharge Data Allergies Allergy/AdvReac Type Severity Reaction Status Date / Time amoxicillin Allergy Intermediate Symmetrical Verified 04/05/20 21:35 drug-related intertriginous flexural exanthema lactose AdvReac Intermediate GI SYMPTOMS Verified 04/05/20 21:35 benzalkonium chloride AdvReac Mild ITCHING/SWE Verified 04/05/20 21:35 LLING/RASH gluten AdvReac Unknown gluten Verified 04/05/20 21:35 intolerant per EGD Consultations 04/05/20 19:47 ED Decision to Admit Stat 04/05/20 20:25 Consult Cardiac Catheterization Stat 04/06/20 02:22 Consult Case Management - Discharge Planning Routine Consult Accounts Receivable Analyst Routine Hospital Course (1) COVID-19 virus infection: Admitted to the COVID unit. treated initially with Hydroxychloroquine 400 mg p.o. twice daily Doxycycline 100 mg IV every 12 hours. Ceftriaxone 1 g IV daily respiratory status quickly deteriorated, required 10L via mask this morning then RR up to 40's, shallow breathing, placed on BIPAP patient had advanced directives that he was a DNR, DNI family agreed that the patient should be comfort measures given Morphine for comfort at 1237 on 04/06 (2) ST elevation myocardial infarction (STEMI): initial EKG with ST elevation in inferior leads, reciprocal ST depressions Consult with interventional cardiology while in ED no role for catheterization, treat with heparin drip, Plavix, metoprolol [facility] following today, patient rapidly declining from respiratory status having frequent runs of V tach, getting shocked constantly family changed to comfort care magnet placed over ICD (3) Ventricular tachycardia: Patient was noted to have several firings of his AICD during the day. placed on Amiodarone worsening hypoxia and STEMI lead to frequent V tach and eventually V fib and then asystole (4) Fever: (5) Hypoxia: (6) Abdominal aortic aneurysm: (7) GERD without esophagitis: Omeprazole 40 mg p.o. twice daily (8) Prostate hyperplasia with urinary obstruction: (9) Elevated troponin I level: (10) Alcoholic Korsakoff syndrome: Continue thiamine and folic acid (11) Chronic systolic CHF (congestive heart failure): (12) Ischemic cardiomyopathy: (13) ICD (implantable cardioverter-defibrillator) in place: Total Time Total Time Spent Total Time Spent (In Minutes): 25 minutes Total Time Includes: Examination of the Patient, Discharge Planning, Communication With Other Providers (Dr. Boone, Dr. Jasmine) and Other (spoke with patient's brother Josemanuel) Discharge Plan Discharge Items Reason For Visit: STEMI, COVID-19 INFECTION Condition on Discharge: Serious Medications and DC Order Prescriptions: No Action thiamine HCl (vitamin B1) [Vitamin B-1] 100 mg Tablet 100 mg PO QAM Qty: 30 RF: 0 atorvastatin 80 mg tablet 80 mg PO HS RF: 0 alprazolam 0.25 mg tablet 0.25 mg PO QAM RF: 0 alprazolam 0.5 mg tablet 0.5 mg PO .DAILY@8PM RF: 0 divalproex 250 mg tablet,delayed release (DR/EC) 250 mg PO BID RF: 0 divalproex 500 mg tablet extended release 24 hr 500 mg PO BID RF: 0 metoprolol succinate 25 mg tablet extended release 24 hr 25 mg PO HS RF: 0 olanzapine 2.5 mg tablet 2.5 mg PO HS RF: 0 acetaminophen 500 mg Tablet 500 mg PO Q4H MDD 3G PRN (Reason: Fever Or Pain) RF: 0 trazodone 100 mg Tablet 25 mg PO Q6H PRN (Reason: Anxiety) RF: 0 trazodone 50 mg tablet 50 mg PO HS Qty: 30 RF: 0 sotalol 80 mg tablet 80 mg PO BID Qty: 60 RF: 0 clopidogrel [Plavix] 75 mg Tablet 75 mg PO QAM Qty: 30 RF: 0 isosorbide mononitrate 60 mg tablet extended release 24 hr 60 mg PO QAM Qty: 30 RF: 0 losartan 25 mg tablet 25 mg PO HS Qty: 30 RF: 0 omeprazole 20 mg Capsule,Delayed Release(Dr/Ec) 40 mg PO BID Qty: 30 RF: 0 folic acid 1 mg Tablet 1 mg PO QAM Qty: 30 RF: 0 Eliquis 5 mg tablet 5 mg PO BID Qty: 60 RF: 0 albuterol sulfate 90 mcg/actuation aerosol powdr breath activated 90 mcg INH Q6H PRN (Reason: Shortness Of Breath Or Wheezing) Qty: 30 RF: 0 Trelegy Ellipta 100-62.5-25 mcg blister with device 1 inh inhalation HS Qty: 30 RF: 0 furosemide 20 mg Tablet 60 mg PO QAM Qty: 30 RF: 0 Admission Data Admit Date/Time: 04/06/20 00:55 Attending Provider: Sarmad Scott Admit Provider: Evan Kenney Primary Care Provider: Quirino Hensley. Other Providers: Evan Kenney ; Nikita Barrow ; Carie Jasmine Coding Level of Care Code D/C Day Management <30 mins Diagnoses COVID-[address] elevation myocardial infarction (STEMI) I21.3 Involved coronary artery: unspecified coronary artery Ventricular tachycardia I47.2 Fever R50.9 Fever type: unspecified Hypoxia R09.02 Abdominal aortic aneurysm I71.4 GERD without esophagitis K21.9 Prostate hyperplasia with urinary obstruction N40.1; N13.8 Elevated troponin I level R79.89 Alcoholic Korsakoff syndrome F10.96 Chronic systolic CHF (congestive heart failure) I50.22 Ischemic cardiomyopathy I25.5 ICD (implantable cardioverter-defibrillator) in place Z95.810
--- NOTE | 2020-04-06 18:11 | Cardiology Consultation ---
Date of Consultation April 06, 2020 History of Present Illness Reason for Consultation: Inferior STEMI Requesting Physician: Dr. Scott Attending Physician: Sarmad Scott, DO History of Present Illness I did not speak with nor examine Mr. Alcala but I did review his medical records both inpatient and outpatient and discussed his case in great length with both the primary service as well as critical care. He presented to [facility] on 04/06/2020 with complaints of shortness of breath. Upon arrival he was found to be COVID-19 positive and suffering an ST segment elevation in the inferior leads. He was determined not to be a candidate for cardiac catheterization. The clinical scenario was discussed with the patient's brother and close friend and was agreed that he would be made DNR DNI at that time. His device was interrogated and was found to have fired several times in the last 24 hours for episodes of ventricular tachycardia. He was started on amiodarone for V. tach suppression and Levophed for hemodynamic support due to worsening hypotension. He was admitted to the COVID unit where he continued to decline clinically. His ICD was turned off by the bedside nurse and likely he did not receive any further shocks. After review of his extensive medical history; including but not limited to coronary artery disease, ischemic cardiomyopathy with an EF of 30%, dementia and Warnicke's/Korsakoff syndrome and discussion with critical care and primary service it was deemed that any further medical intervention at this point would be futile and not life-sustaining. It was agreed by all that he would be changed to comfort care and his brother agreed with this. Very shortly thereafter the patient went into V. tach and V. fib and cardiac arrest and . Allergies Allergy/AdvReac Type Severity Reaction Status Date / Time amoxicillin Allergy Intermediate Symmetrical Verified 04/05/20 21:35 drug-related intertriginous flexural exanthema lactose AdvReac Intermediate GI SYMPTOMS Verified 04/05/20 21:35 benzalkonium chloride AdvReac Mild ITCHING/SWE Verified 04/05/20 21:35 LLING/RASH gluten AdvReac Unknown gluten Verified 04/05/20 21:35 intolerant per EGD Home Medications Home Medications Medication Instructions Recorded Confirmed Type thiamine HCl (vitamin B1) [Vitamin 100 mg PO QAM #30 tab 01/11/20 04/05/20 Rx B-1] Eliquis 5 mg PO BID #60 tab 02/11/20 04/05/20 Rx Trelegy Ellipta 1 inh INHALATION HS #30 ea 02/11/20 04/05/20 Rx albuterol sulfate 90 mcg INH Q6H PRN #30 ea 02/11/20 04/05/20 Rx clopidogrel [Plavix] 75 mg PO QAM #30 tab 02/11/20 04/05/20 Rx folic acid 1 mg PO QAM #30 tab 02/11/20 04/05/20 Rx isosorbide mononitrate 60 mg PO QAM #30 tab 02/11/20 04/05/20 Rx losartan 25 mg PO HS #30 tab 02/11/20 04/05/20 Rx omeprazole 40 mg PO BID #30 cap 02/11/20 04/05/20 Rx sotalol 80 mg PO BID #60 tab 02/11/20 04/05/20 Rx trazodone 50 mg PO HS #30 tab 02/11/20 04/05/20 Rx furosemide 60 mg PO QAM #30 tab 02/12/20 04/05/20 Rx atorvastatin 80 mg PO HS 02/15/20 04/05/20 History acetaminophen 500 mg PO Q4H PRN MDD 3G 04/05/20 04/05/20 History alprazolam 0.25 mg PO QAM 04/05/20 04/05/20 History alprazolam 0.5 mg PO .DAILY@8PM 04/05/20 04/05/20 History divalproex 250 mg PO BID 04/05/20 04/05/20 History divalproex 500 mg PO BID 04/05/20 04/05/20 History metoprolol succinate 25 mg PO HS 04/05/20 04/05/20 History olanzapine 2.5 mg PO HS 04/05/20 04/05/20 History trazodone 25 mg PO Q6H PRN 04/05/20 04/05/20 History Patient History Medical History (Updated 04/06/20 @ 06:01 by Evan Kenney MD) Alcohol abuse Anemia Arthritis CAD (coronary artery disease), [place] coronary artery Celiac disease Chronic respiratory failure with hypoxia Chronic systolic CHF (congestive heart failure) Emphysema of lung GERD (gastroesophageal reflux disease) Gout Hyperlipidemia Hypertension ICD (implantable cardioverter-defibrillator) in place medtronic [address] Rohith Ischemic cardiomyopathy Ischemic colitis Migraine Myocardial Infarction most recent 2013, adjust med and icd inserted Non-ST elevation SD (NSTEMI) (Inactive) PAD (peripheral artery disease) Personal history of sudden cardiac successfully resuscitated (Inactive) Pituitary adenoma removal of adenoma from pituitary 2015 Seizure disorder Thrombocytopenia Unstable angina (Inactive) Ventricular tachycardia Surgical History H/O hand surgery Right hand tendon repair History of abdominal aortic aneurysm (AAA) repair 2006 History of cardiac defibrillator placement May 2014 History of pituitary surgery August 2016 History of total hip arthroplasty right and left Hx of [id number] bypass right and left leg S/P hip replacement (Inactive) Family History Mother , at age 46 Breast cancer Other Cancer Denies family history of Ovarian cancer Prostate cancer Myocardial infarction Colorectal cancer Social History Preferred Language: Kenyan Communication Ability: Effective Visual Impairment: No Limitations Hearing Ability: Normal Centerless Grinding Machine Adjuster Required: No Beliefs That Will Affect Care: None marital status: marital status details: no children Current Living Situation: Other Current Living Situation Comment: Assisted Living @ [facility] current occupational status: retired Feels Safe at Home: Yes Smoking Status: Never smoker Age Started Using Tobacco: 19 ; Age Quit Using Tobacco: 61 ; packs per day: 1.5 ; Cigarettes Per Day: 20-40 ; Number of Years Since Quit: 13 ; Second Hand Exposure: No ; Hx Alcohol Use: No Hx Substance Use: No Childhood Exposure to Second-Hand Smoke: No Dental Care, Regularly: Yes Physical Activity Frequency: 3-4 Times per Week Seatbelt Use: always Sunscreen Use: Yes Results & Data ([facility] [place]) Vital Signs (Past 12 Hours) Vital Signs Pulse Resp BP Pulse Ox 04/06/20 12:16 117 H 36 H 101/67 77 L 04/06/20 12:00 114 H 38 H 80 L 04/06/20 11:45 104 H 40 H 124/85 88 L 04/06/20 11:30 97 H 53 H 116/87 95 04/06/20 11:22 99 H 38 H 99 04/06/20 11:15 91 H 40 H 104/81 96 04/06/20 11:01 89 39 H 104/80 97 04/06/20 11:00 89 37 H 96 04/06/20 10:45 90 31 H 116/83 94 04/06/20 10:30 89 34 H 109/82 94 04/06/20 10:15 88 33 H 106/69 94 04/06/20 10:01 93 H 32 H 110/84 99 04/06/20 10:00 92 H 34 H 93 04/06/20 09:46 97 H 34 H 102/74 87 L 04/06/20 09:30 96 H 45 H 111/83 85 L 04/06/20 09:15 90 26 H 107/78 84 L 04/06/20 09:00 93 H 33 H 108/77 88 L 04/06/20 08:45 94 H 34 H 110/63 90 04/06/20 08:30 89 29 H 105/76 86 L 04/06/20 08:15 88 28 H 92/76 L 90 04/06/20 08:00 84 19 95/69 L 93 04/06/20 07:46 87 22 89/43 L 90 04/06/20 07:30 80 35 H 106/72 91 04/06/20 07:15 79 30 H 93/65 L 91 04/06/20 07:00 76 28 H 110/70 91 04/06/20 06:45 81 36 H 92/64 L 91
[2020-04-06] MEDS ORDERED: FLUTICASONE FUROATE 100MCG 14 PUFFS/INHALER INH SCH (21:00)
[2020-04-06] MEDS ORDERED: TRAZODONE HCL 50 MG TAB PO SCH (21:00)
[2020-04-06] MEDS ORDERED: LOSARTAN POTASSIUM 25 MG TAB PO SCH (21:00)
[2020-04-06] MEDS ORDERED: UMECLIDINIUM/VILANTEROL 62.5/25MCG 7 PUFFS/INHALER INH SCH (21:00)
[2020-04-06] MEDS ORDERED: OLANZAPINE 2.5 MG TAB PO SCH (21:00)
[2020-04-06] MEDS ORDERED: ATORVASTATIN 40 MG TAB PO SCH (21:00)
[2020-04-06] MEDS ORDERED: METOPROLOL SUCC 25MG EXT REL TAB PO SCH ×2 (21:00)
--- NOTE | 2020-04-07 05:22 | Electrocardiogram Report ---
Test Reason : Blood Pressure : / mmHG Vent. Rate : 089 BPM Atrial Rate : 089 BPM P-R Int : 176 ms QRS Dur : 098 ms QT Int : 382 ms P-R-T Axes : 011 050 171 degrees QTc Int : 464 ms Normal sinus rhythm with sinus arrhythmia Premature atrial complexes Low voltage QRS ST elevation consider inferior injury or acute infarct ACUTE [place] / STEMI Abnormal ECG When compared with ECG of 22-FEB-2020 23:26, ST elevation now present in Inferior leads T wave inversion now evident in Lateral leads Confirmed by Gaurang De Leon ([id number]) on 04/07/2020 5:22:29 AM Referred By: REFERRED SELF Confirmed By:Gaurang De Leon
--- NOTE | 2020-04-07 05:24 | Electrocardiogram Report ---
Test Reason : Blood Pressure : / mmHG Vent. Rate : 091 BPM Atrial Rate : 091 BPM P-R Int : 174 ms QRS Dur : 096 ms QT Int : 392 ms P-R-T Axes : 023 073 196 degrees QTc Int : 482 ms Sinus rhythm with Premature atrial complexes Low voltage QRS Possible Septal infarct ST elevation, consider inferior injury pattern Abnormal ECG When compared with ECG of 05-APR-2020 19:22, No significant change Confirmed by Gaurang De Leon ([id number]) on 04/07/2020 5:23:42 AM Referred By: REFERRED SELF Confirmed By:Gaurang De Leon
--- NOTE | 2020-04-07 05:29 | Electrocardiogram Report ---
Test Reason : Blood Pressure : / mmHG Vent. Rate : 082 BPM Atrial Rate : 082 BPM P-R Int : 202 ms QRS Dur : 100 ms QT Int : 390 ms P-R-T Axes : 029 033 140 degrees QTc Int : 455 ms Sinus rhythm with Premature atrial complexes Low voltage QRS Septal infarct (cited on or before 10-JUN-2014) Possible Inferior infarct Abnormal ECG When compared with ECG of 05-APR-2020 20:57, Nonspecific T wave abnormality has replaced inverted T waves in Inferior leads ST less elevated in Inferior leads Confirmed by Gaurang De Leon ([id number]) on 04/07/2020 5:28:31 AM Referred By: REFERRED SELF Confirmed By:Gaurang De Leon
[2020-04-07] MEDS ORDERED: FUROSEMIDE 40 MG in SYRINGE 0 ML IV SCH (09:00)
== END 2020-04-06 13:30 | disposition expired | DRG 177 ==
LOC: ED 17:44 → 2E 04-06 00:55 → SUATTDRO 04-06 00:55 → 2E 04-06 01:24